=== PATIENT | female | born 1975 | race Caucasian/White ===

== ENCOUNTER → 2019-09-07 15:27 | Outpatient (CLI) | payer MEDICARE, SELFPAY ==
--- NOTE | 2019-09-07 15:38 | RAD_ITS ---
STUDY: X-RAY CHEST REASON FOR EXAM: Female, 44 years old. Cough TECHNIQUE: PA and lateral views of the chest. COMPARISON: None. FINDINGS: The lungs are clear and expanded. There is no demonstrated pleural abnormality. Normal size heart. Normal mediastinum and ludmila. Normal visualized pulmonary arteries. Normal visualized aortic arch and descending thoracic aorta. Normal visualized thoracic spine. Normal visualized ribs, clavicles, and shoulders. There is no demonstrated abnormality of the visualized soft tissue structures of the upper abdomen. RAD/Chest PA and Lateral IMPRESSION: Normal x-ray examination of the chest. Electronically Signed: Shaheen Braswell MD at 22:47 EST , Service support ,
== END ==
PROVIDERS: Family Provider Nurse Practitioner; PCP Nurse Practitioner; Referring Provider Nurse Practitioner; Visit Provider Nurse Practitioner
DX: J44.9 Chronic obstructive pulmonary disease, unspecified (principal)
CPT/HCPCS: 71046

== ENCOUNTER 2019-12-27 20:21 | Observation (INO) | payer MEDICARE, MEDICAID, SELFPAY ==
[2019-12-27] VITALS (10 sets, daily range): BP systolic 102–115; BP diastolic 67–80; PULSE 61–92; RESP 16–18; TEMP 36.3–37; O2SAT 98–100; BMI 21.5; BMI 22.4
--- NOTE | 2019-12-27 20:32 | EKG12_ITS ---
Test Reason : STROKE Blood Pressure : / mmHG Vent. Rate : 080 BPM Atrial Rate : 080 BPM P-R Int : 138 ms QRS Dur : 082 ms QT Int : 394 ms P-R-T Axes : 067 063 067 degrees QTc Int : 454 ms Normal sinus rhythm with sinus arrhythmia Normal ECG Confirmed by LAN SMITH, CONNIE ([id number]), metropolitan editor [address] ADAMS ([id number]) on 12/30/2019 11:43:38 AM Referred By: AUBREY Confirmed By:FLORENCIA MONTENEGRO MD
--- NOTE | 2019-12-27 20:32 | CT_ITS ---
We are attempting to reach an attending provider to discuss findings. An addendum with communication details will be sent when the communication is complete. STUDY: CT BRAIN WITHOUT CONTRAST REASON FOR EXAM: Female, 44 years old. Stroke RADIATION DOSAGE (If Supplied By Facility): CTDIvol = ( 44.99 ) mGy, DLP = ( 779.24 ) mGycm TECHNIQUE: Transaxial CT imaging of the brain was performed without administration of intravenous contrast material. Individualized dose optimization techniques were used for this CT. COMPARISON: No relevant priors. FINDINGS: Brain parenchyma is without focal lesions, mass effect, acute intracranial hemorrhage, extra parenchymal fluid collections, hydrocephalus or herniation. The skull is intact. CT/Brain/Head without Contrast IMPRESSION: 1. Normal CT brain. Electronically Signed: Theron Rust, at 20:47 EDT Tel , Service support ,
--- NOTE | 2019-12-27 20:33 | CT_ITS ---
STUDY: CTA OF THE BRAIN REASON FOR EXAM: Female, 44 years old. STROKE, NEURO DEFICIT, ACUTE STROKE SUSPECTED, SLURRED SPEECH TODAY RADIATION DOSAGE (If Supplied By Facility): CTDIvol = ( 22.63 ) mGy, DLP = ( 625.85 ) mGycm TECHNIQUE: CT angiography was performed with a multi-detector CT scanner. Data acquisition was obtained from the skull base through the vertex following intravenous administration of IV 100mL [id number]-[id number]. MIP images were reconstructed from the axial data set. Post-processing of the angiographic images was performed, with multiplanar reformation and 3D reconstruction. Individualized dose optimization techniques were used for this CT. COMPARISON: None. FINDINGS: Normal bilateral petrous carotid arteries. Normal right cavernous carotid artery with a normal supraclinoid bifurcation. Normal left cavernous carotid artery with a normal supraclinoid bifurcation. Normal right A1 segments of the anterior cerebral artery. Normal left A1 segments of the anterior cerebral artery. Normal intact anterior communicating artery (ACOM). Normal bilateral A2 segments of the anterior cerebral arteries. Normal right M1 and M2 segments of the middle cerebral arteries, with a normal M1 bifurcation. Normal left M1 and M2 segments of the middle cerebral arteries, with a normal M1 bifurcation. Posterior communicating arteries are not well seen. Normal bilateral vertebral arteries. Normal basilar artery with a normal basilar bifurcation. The visualized bilateral superior cerebellar (SCA) arteries are normal. Normal bilateral P1, P2 and visualized P3 segments of the posterior cerebral arteries. There is no demonstrated aneurysm of the [place]. There is no demonstrated abnormality of the visualized brain. IMPRESSION: Normal [place] without a demonstrated aneurysm or hemodynamically significant stenosis. N.B. : The above information has been verbally conveyed by Theron Rust to Josefa Romero on 12/27/2019 20:54:30 (ET). Electronically Signed: Theron Rust, at 20:54 EDT Tel , Service support , STUDY: CTA NECK WITH CONTRAST REASON FOR EXAM: Female, 44 years old. STROKE, NEURO DEFICIT, ACUTE STROKE SUSPECTED, SLURRED SPEECH TODAY RADIATION DOSAGE (If Supplied By Facility): CTDIvol = ( ) mGy, DLP = ( ) mGycm TECHNIQUE: CT angiography with multi-detector data acquisition was performed from the aortic arch to the skull base following intravenous administration of . MIP images were reconstructed from the axial data set. Post-processing of the angiographic images was performed, with multiplanar reformation and 3D reconstruction. Individualized dose optimization techniques were used for this CT. COMPARISON: None. FINDINGS: AORTIC ARCH: Normal visualized aortic arch. Normal origins of the brachiocephalic, left common carotid, and left subclavian arteries. RIGHT CAROTID ARTERIES: Normal right common carotid artery (CCA). Normal right common carotid bulb. Normal origin of the right internal carotid (ICA) artery without a hemodynamically significant stenosis. Normal visualized cervical portion of the right internal carotid artery. Normal origin of the right external carotid artery (ECA). LEFT CAROTID ARTERIES: Normal left common carotid artery (CCA). Normal left common carotid bulb. Normal origin of the left internal carotid (ICA) artery without a hemodynamically significant stenosis. Normal visualized cervical portion of the left internal carotid artery. Normal origin of the left external carotid artery (ECA). VERTEBRAL ARTERIES: Normal bilateral vertebral arteries. CT/CTA Head AND Neck W/ Contrast IMPRESSION: Normal bilateral cervical carotid and vertebral arteries. N.B. : The above information has been verbally conveyed by Theron Rust to Josefa Romero on 12/27/2019 20:54:30 (ET). Electronically Signed: Theron Rust, at 20:54 EDT Tel , Service support ,
--- NOTE | 2019-12-27 20:35 | ED.RN ---
FACE SHEET FAXED TO [facility]
--- NOTE | 2019-12-27 20:36 | ED.DCSUM_ITS ---
History of Present Illness Chief Complaint: Numb/Ting Informant: Patient Onset: Days Context: Gradual Onset Timing: Waxes and wanes Quality and Location: Right Facial Droop, Right Arm Parasthesia, Right Arm Weakness, Expressive Aphasia, - - Vision changes Narrative: Patient is a 44-year-old female with history of fibromyalgia and seizure medication presenting with strokelike symptoms. Patient states that for the past week she has had difficulty swallowing. She notes the past 2 days she has had a heaviness of her right face but then about 4 hours prior to calling EMS she started having worsening of her facial heaviness, speech difficulties, numbness from her right elbow down her arm and blurry vision from her right eye. This was 4-1/2 hours prior to my evaluation of her. Patient has a history of low blood pressure, hypoglycemia and fibromyalgia. She does not have any history of stroke. While she was having these symptoms over the past week do not think she was having a stroke because she still young. She was having some nausea prior to arrival however that resolved with fluids given by EMS. Patient's fingerstick blood glucose was normal. She denies any other complaints at this time. Past Medical History - Allergies and Home Meds Allergies/Adverse Reactions: Allergies bupropion HCl [From Wellbutrin] Allergy (Verified 12/27/19 20:31) Other divalproex sodium [From Depakote] Allergy (Verified 12/27/19 20:31) Rash doxycycline Allergy (Verified 12/27/19 20:31) Rash Gadolinium-MRI Contrast Medium [Gadolinium-Contrast Medium - MRI] Allergy (Verified 12/27/19 20:31) Hives lamotrigine [From Lamictal] Allergy (Verified 12/27/19 20:31) Rash latex Allergy (Verified 12/27/19 20:31) Hives phenytoin sodium [From Dilantin] Allergy (Verified 12/27/19 20:31) Hives phenytoin sodium extended [From Dilantin] Allergy (Verified 12/27/19 20:31) Hives erythromycin base Adverse Reaction (Verified 12/27/19 20:31) Nausea/Vom/Diarrhea quetiapine fumarate [From Seroquel] Adverse Reaction (Verified 12/27/19 20:31) Other Sulfa (Sulfonamide Antibiotics) Adverse Reaction (Verified 12/27/19 20:31) Vomiting varenicline tartrate [From Chantix] Adverse Reaction (Verified 12/27/19 20:31) Vomiting Past Medical History: - - Migraines, fibromyalgia Surgical History: noncontributory Lives: Spouse/ Significant Other Smoking Status: Former smoker Alcohol: None Drugs: None Review of Systems General: Denies: Chills, Fever, Sweats Eyes: Reports: Blurred vision - right. Denies: Visual changes - bilaterally, Diplopia ENT: Denies: Rhinorrhea, Sore throat Cardiovascular: Denies: Chest pain, Palpitations Respiratory: Denies: Dyspnea, Cough, Dyspnea on exertion Gastrointestinal: Reports: Nausea. Denies: Abdominal pain, Vomiting, Diarrhea, Melena, Hematochezia Genitourinary: Denies: Dysuria, Hematuria, Frequency Musculoskeletal: Denies: Back pain, Extremity Pain Skin: Denies: Rash, Wounds Neurological: Reports: Weakness, Parasthesia, - - speech difficulty . Denies: Headache, Numbness STROKE Vital Signs/Narrative: Vital Signs Temp Pulse Resp BP Pulse Ox 12/27/19 20:22 98.1 F 92 18 115/74 100 Inital Vital Signs reviewed: Yes - NIHSS Initial 1a Level of Consciousness: 0 1b LOC Questions (Score 2 if aphasic/stupor): 0 1c LOC Commands (Only score 1st attempt): 0 2 Best Gaze (If aphasic, use reflexive mvmts.): 0 3 Visual: 1 - Right upper visual field 4 Facial Palsy: 1 - Right facial droop 5 Motor Arm Right (UN = amputation/fusion): 3 - Some movement on the bed but no effort against gravity 5 Motor Arm Left: 0 6 Motor Leg Right: 0 6 Motor Leg Left: 0 7 Limb ataxia (Only + if out of proportion): 0 8 Sensory (Aphasia/stupor=0 or 1, coma=2): 1 - Right face and upper extremity 9 Best Language: 0 10 Dysarthria (mute, coma=2, intubated=UN): 1 11 Extinction and Inattention (only scored if +): 0 Total Score: 7 General: Well nourished, Well developed Head: Normocephalic, Atraumatic Eyes: Perrl, EOMI ENT: Moist mucous membranes, No rhinorrhea Neck: Supple, Nontender Cardiovascular: Regular rate, Regular rhythm, No murmurs Respiratory: No distress, CTA bilaterally, Chest nontender Abdomen: Soft, Nontender, Nondistended, Normal bowel sounds Back: Nontender, Normal Inspection Extremities: Nontender, No edema Skin: Normal color, No rash Neurological: Alert, Oriented x3, - - See NIH above. Patient seems to have a hard time sticking out her tongue Psychological: Normal affect Diagnostic/Tx/Re-eval Clinical Impression(s) from Imaging Studies Brain CT 12/27/19 20:32 IMPRESSION: 1. Normal CT brain. Electronically Signed: Theron Rust, at 20:47 EDT Tel , Service support , ADDENDUM: 12/27/192100 IMPRESSION: 1. Normal CT brain. N.B. : The above information has been verbally conveyed by Theron Rust to Josefa Romero MD, on 12/27/2019 20:54:38 (ET). Electronically Signed: Theron Rust at 20:47 EDT Tel , Service support , Head/Neck CTA 12/27/19 20:33 IMPRESSION: Normal bilateral cervical carotid and vertebral arteries. N.B. : The above information has been verbally conveyed by Theron Rust to Josefa Romero on 12/27/2019 20:54:30 (ET). Electronically Signed: Theron Rust at 20:54 EDT Tel , Service support , ADDENDUM: 12/27/192100 IMPRESSION: Normal bilateral cervical carotid and vertebral arteries. N.B. : The above information has been verbally conveyed by Theron Rust to Josefa Romeor on 12/27/2019 20:54:30 (ET). Electronically Signed: Theron Rust at 20:54 EDT Tel , Service support , Chest X-Ray 12/27/19 21:05 IMPRESSION: No acute thoracic pathology. Electronically Signed: Vin Sloan, at 21:35 EDT Tel , Service support , Laboratory Data 12/27/19 12/27/19 12/27/19 20:30 20:30 20:30 WBC 8.7 RBC 5.25 Hgb 16.1 H Hct 47.5 H MCV 90.5 MCH 30.7 MCHC 33.9 RDW Std Deviation 42.2 RDW Coeff of Yuly 12.7 Plt Count 408 MPV 8.4 Immature Gran % (Auto) 0.200 Neut % (Auto) 45.2 L Lymph % (Auto) 45.8 H Bergen % (Auto) 5.9 Eos % (Auto) 2.1 Baso % (Auto) 0.8 Absolute Neuts (auto) 3.9 Absolute Lymphs (auto) 3.97 Nucleated RBC % 0 PT 13.3 INR 1.0 APTT 29.5 Sodium 138 Potassium 3.6 Chloride 109 H Carbon Dioxide 26.0 Anion Gap 3 L BUN 6 L Creatinine 0.82 Estim Creat Clear Calc 83.67 Est GFR (MDRD) Af Amer 98 Est GFR (MDRD) Non-Af 81 BUN/Creatinine Ratio 7.3 L Glucose 89 Calcium 9.3 Troponin I < 0.015 Serum , Qual POC Glucose 12/27/19 12/27/19 20:30 20:45 WBC RBC Hgb Hct MCV MCH MCHC RDW Std Deviation RDW Coeff of Yuly Plt Count MPV Immature Gran % (Auto) Neut % (Auto) Lymph % (Auto) [place] % (Auto) Eos % (Auto) Baso % (Auto) Absolute Neuts (auto) Absolute Lymphs (auto) Nucleated RBC % PT INR APTT Sodium Potassium Chloride Carbon Dioxide Anion Gap BUN Creatinine Estim Creat Clear Calc Est GFR (MDRD) Af Amer Est GFR (MDRD) Non-Af BUN/Creatinine Ratio Glucose Calcium Troponin I Serum , Qual NEGATIVE POC Glucose 80 Chest X-Ray - ED: 1 View, Read by ED Physician, Read by Radiologist, No Acute Disease - Rhythm Strip Rhythm Strip: Sinus Rhythm Rate: 80 Ectopy: None - EKG Initial EKG Interpretation: Sinus Rhythm, - - Normal sinus rhythm at a rate of 80 Normal axis Normal intervals Normal ST segments Compared to prior EKG on 03/29/2014 patient has no changes - Medical Decision Making Stroke Team Activated: Yes Reviewed Inclusion/Exclusion criteria: Yes Was Patient considered for Endovascular Intervention?: No IV Alteplase (t-PA) Administered: No - Not a candidate based on timing of symptoms Patient is a 44-year-old female history of migraines and fibromyalgia presenting with strokelike symptoms. She had acute worsening of her symptoms just under 4 and half hours prior to arrival. Patient actually been having neurologic symptoms however for the past week. Because of the acute change he did call a stroke alert. After discussion with the stroke neurologist at [facility] she agrees that patient is not a TPA candidate. CTA obtained to rule out LVO. CT brain and CTA head and neck are negative for any acute intracranial or vascular process. Patient does not have any significant change of her neurologic symptoms were in the emergency room. Differential does include stroke but I also consider complex migraine or an underlying psychiatric illness. Patient be admitted for further neurologic evaluation. Patient agreeable this plan. She is complaining of nausea while the emergency room. She is given oral Zofran which does not seem to help. Patient is been complaining of discomfort of her right arm and continue nausea. She will be given Toradol and Phenergan for her symptoms and possibly to treat her if this is a complex migraine. Patient is agreeable with admission. Case discussed with hospitalist, Dr. Anderson, who evaluates patient in the ER. ED Disposition - Plan for ED Patient: Disposition: Acute Care Hospital [facility] Diagnosis: Stroke-like symptoms, Expressive aphasia, Right arm weakness, Paresthesia of right arm
[2019-12-27 20:43] LABS: Absolute Lymphocyte Count 3.97 X10^3/uL (0.83-4.51); Absolute Neutrophil Count 3.9 X10^3/uL (2.0-7.7); Basophil# 0.07 X10^3/uL; Basophil% 0.8 % (0-1); Eosinophil# 0.18 X10^3/uL; Eosinophils% 2.1 % (0-5); Hematocrit 47.5 % (37-47); Hemoglobin 16.1 g/dL (12.0-15.0); Lymphocyte # 3.97 X10^3/ul (4.0); Lymphocyte % 45.8 % (19-41); Mean Corp Hgb Conc 33.9 g/dL (32-36); Mean Corpuscular Hgb 30.7 pg (27.0-32.0); Mean Corpuscular Volume 90.5 fL (81-99); Mean Platelet Vol. 8.4 fl (6.2-12.0); Monocyte# 0.51 X10^3/uL; Monocyte% 5.9 % (0-10); NRBC Flagged by Analyzer 0 % (0-5); Neutrophil # 3.91 X10^3/uL (2.7-7.7); Neutrophil % 45.2 % (47-70); Platelet Count 408 K/mm3 (150-450); RBC Distribution Width CV 12.7 % (11.6-14.6); RBC Distribution Width SD 42.2 fl (35.1-43.9); Red Blood Count 5.25 M/mm3 (4.2-5.4); White Blood Count 8.7 K/mm3 (4.4-11.0)
[2019-12-27] MEDS: 0.9% Normal Saline 1,000 ML 999 ML IV (20:49)
[2019-12-27 20:50] LABS: Bedside Glucose 80 mg/dL (70-110)
[2019-12-27 20:52] LABS: Prothrombin Time (Protime)PT. 13.3 SECONDS (11.7-14.9)
[2019-12-27 20:53] LABS: Partial Thromboplast Time 29.5 Seconds (24.1-36.2)
[2019-12-27 20:56] LABS: Anion Gap 3 (5-15); BUN 6 mg/dL (7-18); BUN/Creat Ratio 7.3 RATIO (10-20); Calcium,Total 9.3 mg/dL (8.5-10.1); Chloride 109 mmol/L (98-107); Creatinine, Serum 0.82 mg/dL (0.55-1.02); EST Glomerular Filtration Rate 81 mL/min (>60); Est Glom Filt Rate - Afr Amer 98 mL/min (>60); Estimated Creatinine Clearance 83.67 ml/min; Glucose 89 mg/dL (74-106); Potassium 3.6 mmol/L (3.5-5.1); Sodium Level 138 mmol/L (136-145)
--- NOTE | 2019-12-27 20:57 | CM.ED ---
Social Work Responding to stroke alert. No family present. Patient requesting for this social work job titles to call patient boyfriend, Hermilo ([phone]). Telephone call to Hermilo, no answer and voicemail box is full. Patient now requesting for this social work job titles to call Hermilo's mom ([phone]). Patient unable to verbalize a name for Hermilo's mom. Telephone call to Hermilo's mom, Oumoura Bacon. Oumou answering phone and confirming to know patient. Oumou stating to update Hermilo that patient is in the ED. Patient also clarifying that Hermilo and Oumou are the only two people to be updated on patient medication conditions. Patient stating to not talk with adopted family. Unable to gather more information at this time due to patient current medical status. Noman STEWART, CHELY
[2019-12-27] MEDS: Ondansetron 4 MG/2 ML Vial IV (21:00)
--- NOTE | 2019-12-27 21:05 | RAD_ITS ---
STUDY: X-RAY CHEST REASON FOR EXAM: Female, 44 years old. Cough TECHNIQUE: Frontal view of the chest COMPARISON: 09/07/2019 FINDINGS: The lungs are clear. There are no pleural effusions. There is no pneumothorax. The heart is normal in size. The visualized osseous structures are within normal limits. RAD/Chest 1 View IMPRESSION: No acute thoracic pathology. Electronically Signed: Vin Sloan, at 21:35 EDT Tel , Service support ,
[2019-12-27 21:28] LABS: Internal QC Validated? YES +Cl - CLEAR BKGD; Pregnancy, Serum, hCG Quali. NEGATIVE Negative
--- NOTE | 2019-12-27 21:55 | HP.PCM_ITS ---
Problem List (1) Stroke-like symptoms Status: Acute (2) History of pseudoseizure Status: Chronic (3) Anxiety and depression Status: Chronic (4) History of migraine Status: Chronic (5) Tobacco use Status: Chronic (6) COPD (chronic obstructive pulmonary disease) Status: Chronic Qualifiers: COPD type: unspecified COPD Qualified Code(s): J44.9 - Chronic obstructive pulmonary disease, unspecified History of Present Illness Date of Admission: 12/27/19 Chief Complaint: Paresthesias, vision changes, extremity weakness The patient is a 44 y/o F w/ PMHx: Chronic COPD, Former Tobacco use, Depression and Anxiety with prior history of self-inflicted lacerations, Fibromyalgia, ? Seizure disorder noted to have previously been following w/ Dr. Marshall, Chronic Migraines with prior history of complex migraine noting dysarthria, R sided paresthesias per records review who presents to the [facility] ED on 12/27/19 with history of 1 week history of ongoing dysphasia, 2-day history of heaviness with a sensation primarily in the right side of her face which worsened approximately 4 hours prior to calling EMS with difficulty speaking as well as right upper extremity paresthesias and blurry vision in the right eye prompting eventual ED presentation. She notes during this time she is also had light and sound sensitivity and describes the heaviness on the right side of her face as a pressure-like sensation. Work-up in the ED included T 98.1, heart rate 92, BP 115/74, respiratory rate 18, 100% on room air, negative testing, CBC with WBC 8.7, hemoglobin 16.1, platelet 408 without market shift, unremarkable coags, CMP with chloride 109 otherwise not marked appearing, troponin less than 0.015, CT head with no acute intracranial findings, CTA head and neck with no acute findings with normal bilateral cervical carotid and vertebral arteries. In the ED patient administered normal saline and Zofran. NIH stroke scale of 7 upon presentation and repeat assessment with right upper field deficits, right facial droop, right upper extremity with some movement on the bed but no effort against gravity, right face and upper extremity sensory alterations as well as significant dysarthria. Past Medical History Past Medical History (Chronic Problems): Chronic Problems History of pseudoseizure (Chronic) Anxiety and depression (Chronic) History of migraine (Chronic) Tobacco use (Chronic) COPD (chronic obstructive pulmonary disease) (Chronic) Allergies bupropion HCl [From Wellbutrin] Allergy (Verified 12/27/19 20:31) Other divalproex sodium [From Depakote] Allergy (Verified 12/27/19 20:31) Rash doxycycline Allergy (Verified 12/27/19 20:31) Rash Gadolinium-MRI Contrast Medium [Gadolinium-Contrast Medium - MRI] Allergy (Verified 12/27/19 20:31) Hives lamotrigine [From Lamictal] Allergy (Verified 12/27/19 20:31) Rash latex Allergy (Verified 12/27/19 20:31) Hives phenytoin sodium [From Dilantin] Allergy (Verified 12/27/19 20:31) Hives phenytoin sodium extended [From Dilantin] Allergy (Verified 12/27/19 20:31) Hives erythromycin base Adverse Reaction (Verified 12/27/19 20:31) Nausea/Vom/Diarrhea quetiapine fumarate [From Seroquel] Adverse Reaction (Verified 12/27/19 20:31) Other Sulfa (Sulfonamide Antibiotics) Adverse Reaction (Verified 12/27/19 20:31) Vomiting varenicline tartrate [From Chantix] Adverse Reaction (Verified 12/27/19 20:31) Vomiting Home Medications: Ambulatory Orders Medication Instructions Recorded Albuterol Inhaler [Ventolin Hfa 1 - 2 puff INHALATION Q4H PRN PRN 16 (SP)] Cholecalciferol (Vitamin D3) 10,000 unit PO DAILY 12/27/19 [Vitamin D3] Gabapentin [Neurontin] 200 mg PO BIDCM 12/27/19 Sumatriptan Succinate [Imitrex] 100 mg PO .X1 PRN 12/27/19 Surgical History: - - D&C x2, cholecystectomy, partial hysterectomy, x4. 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 Tobacco Use: Cigarettes Alcohol: None Drugs: None - *Family History Maternal History Items: Diabetes, High Cholesterol, Heart Disease, Hypertension Paternal History Items: Diabetes, High Cholesterol, Heart Disease, Hypertension Review of Systems Constitutional: Reports: Anorexia, Malaise, Weakness, Fatigue. Denies: Chills, Fever, Weight Change HEENT: Reports: Head Aches, Visual Changes. Denies: Sinus Congestion, Sinus Drainage Cardiovascular: Denies: Chest Pain, Palpitations Respiratory: Denies: Cough, Shortness of breath at rest, Sputum production Gastrointestinal: Reports: Nausea. Denies: Abdominal Pain, Vomiting Genitourinary: Denies: Dysuria Musculoskeletal: Reports: Back Pain, Joint Pain. Denies: Joint Tenderness Skin: Denies: Rash, Wounds Neurological: Reports: Blurred vision, Slurred speech, Confusion, Difficulty swallowing, Focal weakness, Numbness, Tingling Psychiatric: Reports: Anxiety, Depression. Denies: Homicidal Ideations, Suicidal Ideations Hematologic/ Lymphatic: Denies: Easy Bruising, Easy Bleeding VTE Information - Inpt Only VTE Present on Admission: No VTE Mechan Device Prophylaxis: SCD's VTE Pharm Prophylaxis ordered?: Yes Patient Problems: Active and Suspected Problems Stroke-like symptoms (Acute) Expressive aphasia (Acute) Right arm weakness (Acute) Paresthesia of right arm (Acute) Subjective: Patient seated upright in the ED bed, halting speech ongoing, no evidence of facial droop. Objective: Physical Examination: General: awake, alert, oriented x 3 ongoing halting speech, remains cooperative, seated upright in the ED bed in no apparent distress. Skin: normal color, turgor, no icterus, cyanosis. HEENT: AT/NC, EOMI, PERRLA, MMM, no carotid bruits or JVD noted. Lungs: CTA bilaterally, moderate effort, mild decrease BL bases, no rales, ronchi or wheezing. Heart: Regular rate and rhythm; no gallop, rub audible. Abdomen: soft, NTTP, ND, normal BS, no HSM. Extremities: no cyanosis, clubbing, or edema. Neurological: patient awake, alert, oriented as noted; cognitive function appears intact however patient notes decreased from her baseline intact; pupils equally reactive to light and accomodation; cranial nerves II-XII grossly appear normal, moving all 4 extremities except significant drift to right upper extremity as well as left lower extremity, subjective paresthesias, difficulty performing [id number] bilateral upper extremities and [id number] bilateral lower extremities, negative Babinski, strength difficult assessment as examination varied, no obvious facial droop, no obvious visual field defects. Psychiatric: affect appears fatigued otherwise normal, no acute evidence of depressive or anxiety feelings. - Physical Exam Vitals/I&O's: Vital Signs Temp Pulse Resp BP Pulse Ox 98.1 F 86 17 109/69 100 12/27/19 20:41 12/27/19 21:02 12/27/19 21:02 12/27/19 21:02 12/27/19 21:02 Oxygen Flow Rate (L/min) 2 Oxygen Delivery Method Nasal Cannula Weight: 133 lb 9.602 oz Body Mass Index (BMI) 21.5 Finger Stick Blood Glucose 107 Laboratory Results 12/27/19 20:30: WBC 8.7, RBC 5.25, Hgb 16.1 H, Hct 47.5 H, MCV 90.5, MCH 30.7, MCHC 33.9, RDW Std Deviation 42.2, RDW Coeff of Yuly 12.7, Plt Count 408, MPV 8.4, Immature Gran % (Auto) 0.200, Neut % (Auto) 45.2 L, Lymph % (Auto) 45.8 H, [place] % (Auto) 5.9, Eos % (Auto) 2.1, Baso % (Auto) 0.8, Absolute Neuts (auto) 3.9, Absolute Lymphs (auto) 3.97, Nucleated RBC % 0 12/27/19 20:30: PT 13.3, INR 1.0, APTT 29.5 12/27/19 20:30: Sodium 138, Potassium 3.6, Chloride 109 H, Carbon Dioxide 26.0, Anion Gap 3 L, BUN 6 L, Creatinine 0.82, Estim Creat Clear Calc 83.67, Est GFR (MDRD) Af Amer 98, Est GFR (MDRD) Non-Af 81, BUN/Creatinine Ratio 7.3 L, Glucose 89, Calcium 9.3, Troponin I < 0.015 12/27/19 20:30: Serum , Qual NEGATIVE 12/27/19 20:45: POC Glucose 80 Assessment/Plan All Active Problems Stroke-like symptoms (Acute) Expressive aphasia (Acute) Right arm weakness (Acute) Paresthesia of right arm (Acute) The patient is a 44 y/o F w/ PMHx: Chronic COPD, Former Tobacco use, Depression and Anxiety with prior history of self-inflicted lacerations, Fibromyalgia, ? Pseudoseizure disorder noted to have previously been following w/ Dr. Marshall, Chronic Migraines with prior history of complex migraine noting dysarthria, R sided paresthesias per records review who presents to the [facility] ED on 12/27/19 with history of 1 week history of ongoing dysphasia, 2-day history right facial heaviness with onset difficulty speaking and extremity weakness x4 hours. 1. Dysarthria, RUE and LLE Weakness, Paresthesias concerning for CVA versus Complex Migraine with prior history versus Conversion disorder: Will admit to PCU, will obtain MRI Brain, ECHO, PT/OT/Speech/Nutrition evaluation per protocol. Will allow permissive HTN pending MRI brain, maintain on plavix given patient noted possible ASA side effects with dyspnea occasionally, add high dose statin w/ AM FLP, fall precautions. TSH, Mag, FLP, HgbA1c pending. If unremarkable MRI brain then would consider treatment complex migraine and given allergies noted, would consider initiating dihydroergotamine with metoclopramide, IV Decadron 4mg Q6 hours, IV Toradol 30mg q8 hours scheduled, increase home gabapentin regimen to 300mg TID with meals. 2. Pseudoseizure disorder: We will continue patient home Neurontin regimen. Noted previously following with Dr. Park, several listed allergic reactions to AED medications. 3. Chronic COPD: ATC duonebs, PRN albuterol, HOB, IS parameters. 4. Depression and anxiety: Several previous ED visit histories of anxiety and depression as well as self-inflicted harm, not on regimen, encourage follow-up. 5. Tobacco Abuse: Encouraged cessation, inpatient consultation per RT, NR if desired. 6. DVT prophylaxis: SCDs, Lovenox. OBSV E&M: 15260 Initial observation care L3
[2019-12-27] MEDS: proMETHazine 25 MG/ML Syringe 12.5 MG IV (22:23)
[2019-12-27] MEDS: Ketorolac 15 MG/ML Vial IV (22:24)
[2019-12-27 23:39] LABS: Magnesium 1.9 mg/dL (1.6-2.6); Thyroid Stim Hormone (TSH) 5.82 uIU/mL (0.358-3.74)
[2019-12-27] MEDS: 0.9% Normal Saline 1,000 ML 125 ML IV (23:54)
[2019-12-27] MEDS: 0.9% Saline Lock 10 ML Syringe IV (23:55)
[2019-12-28] VITALS (8 sets, daily range): BP systolic 85–91; BP diastolic 38–54; PULSE 51–71; RESP 16–18; TEMP 36.5–36.8; O2SAT 97–100
[2019-12-28] MEDS: 0.9% Saline Lock 10 ML Syringe IV ×2 (03:18→09:04)
[2019-12-28] MEDS: proCHLORPERazine 10 MG/2 ML Vial 5 MG IV (03:18)
[2019-12-28] MEDS: Ketorolac 15 MG/ML Vial IV (03:46)
[2019-12-28 06:53] LABS: Absolute Lymphocyte Count 3.59 X10^3/uL (0.83-4.51); Absolute Neutrophil Count 2.4 X10^3/uL (2.0-7.7); Basophil# 0.07 X10^3/uL; Eosinophil# 0.29 X10^3/uL; Eosinophils% 4.2 % (0-5); Hematocrit 40.7 % (37-47); Hemoglobin 13.6 g/dL (12.0-15.0); Lymphocyte # 3.59 X10^3/ul (4.0); Lymphocyte % 52.5 % (19-41); Mean Corp Hgb Conc 33.4 g/dL (32-36); Mean Corpuscular Hgb 30.8 pg (27.0-32.0); Mean Corpuscular Volume 92.1 fL (81-99); Mean Platelet Vol. 8.6 fl (6.2-12.0); Monocyte% 7.3 % (0-10); NRBC Flagged by Analyzer 0 % (0-5); Neutrophil # 2.38 X10^3/uL (2.7-7.7); Neutrophil % 34.9 % (47-70); Platelet Count 335 K/mm3 (150-450); RBC Distribution Width CV 12.8 % (11.6-14.6); RBC Distribution Width SD 43.6 fl (35.1-43.9); Red Blood Count 4.42 M/mm3 (4.2-5.4); White Blood Count 6.8 K/mm3 (4.4-11.0)
[2019-12-28 07:18] LABS: Anion Gap 4 (5-15); BUN 7 mg/dL (7-18); BUN/Creat Ratio 11.9 RATIO (10-20); Calcium,Total 7.8 mg/dL (8.5-10.1); Chloride 114 mmol/L (98-107); Cholesterol 160 mg/dL (200); Creatinine, Serum 0.59 mg/dL (0.55-1.02); EST Glomerular Filtration Rate 119 mL/min (>60); Est Glom Filt Rate - Afr Amer 144 mL/min (>60); Estimated Creatinine Clearance 107.26 ml/min; Glucose 81 mg/dL (74-106); High Density Lipoprotein 33 mg/dL; Potassium 3.6 mmol/L (3.5-5.1); Sodium Level 141 mmol/L (136-145); Triglycerides 141 mg/dL; Very Low Density Lipoprotein 28 mg/dL (5-40)
[2019-12-28] MEDS: 0.9% Normal Saline 1,000 ML 125 ML IV (07:30)
[2019-12-28 07:36] LABS: T4 Free Direct 1.04 ng/dL (0.76-1.46)
--- NOTE | 2019-12-28 08:00 | MRI_ITS ---
STUDY: MRI BRAIN WITHOUT CONTRAST REASON FOR EXAM: Female, 44 years old. Dysphasia x 1 week, RIGHT eye blurred vision, rt facial numbness TECHNIQUE: Standardized multiplanar fat and water weighted pulse sequences were obtained. COMPARISON: None. FINDINGS: Normal size of the ventricles and extra-axial spaces for the patient''s age. Normal white matter tracts of the supratentorial brain. There is no evidence for recent intracranial ischemia or other cause of cytotoxic edema on diffusion weighted imaging (DWI). Normal T2* images of the brain without demonstrated susceptibility artifact. There is no demonstrated hemosiderin stain. Normal bilateral basal ganglia. Normal thalami. There is no extra-axial fluid accumulation. Normal flow voids within the major intracranial circulation suggesting patency by spin echo criteria. Normal sella turcica, pituitary gland, infundibular stalk, optic chiasm and hypothalamus. Normal tectal plate and pineal gland. Normal midbrain, kinsey and medulla. Normal cerebellum. Normal basal cisterns. There is mild chronic otomastoiditis of the left temporal bone. Normal bilateral internal auditory canals. No demonstrated orbital abnormality, within the constraints of a routine brain study. There is mucoperiosteal inflammatory disease of the paranasal sinuses consistent with mild chronic sinusitis. Normal calvarium and skull base. Normal visualized soft tissue structures. Normal visualized upper cervical spine. MRI/Brain without Contrast IMPRESSION: Normal unenhanced MRI of the brain. Electronically Signed: Tej Day MD at 9:56 EDT Tel , Service support ,
[2019-12-28] MEDS: LORazepam 2 MG/ML Syringe 0.5 MG IV (09:04)
--- NOTE | 2019-12-28 09:04 | MRI_ITS ---
STUDY: MRI CERVICAL SPINE WITHOUT CONTRAST REASON FOR EXAM: Female, 44 years old. Speech changes x 2 weeks, radiculopathy, TECHNIQUE: Standardized fat and water weighted pulse sequences were obtained in the sagittal and axial planes. COMPARISON: X-ray 08/29/2014 FINDINGS: Normal foramen magnum and brainstem-cervical cord junction. Normal craniovertebral junction. Normal anterior atlantoaxial articulation. Normal odontoid process. Normal cervical lordosis. Normal vertebral bodies and posterior osseous elements. C2-3: Normal endplates. Normal disc height, signal and morphology. Normal central canal and intervertebral neural foramina. C3-4: Normal endplates. Normal disc height, signal and morphology. Normal central canal and intervertebral neural foramina. C4-5: Normal endplates. Normal disc height, signal and morphology. Normal central canal and intervertebral neural foramina. C5-6: Disc desiccation with a mild broad disc osteophyte complex which produces minimal spinal stenosis but no neural foraminal stenosis. C6-7: Normal endplates. Normal disc height, signal and morphology. Normal central canal and intervertebral neural foramina. C7-T1: Normal endplates. Normal disc height, signal and morphology. Normal central canal and intervertebral neural foramina. Normal cervical cord. Normal visualized soft tissue structures. MRI/Spine Cervical (Routine) IMPRESSION: Mild focal degenerative disc disease at C5/C6 with minimal spinal stenosis. Electronically Signed: Tej Day MD at 11:55 EDT Tel , Service support ,
--- NOTE | 2019-12-28 10:10 | NURSING ---
[facility] late due to testing.
--- NOTE | 2019-12-28 10:23 | NURSING ---
Pt returned from MRI. IV bolus continued.
[2019-12-28] MEDS: Gabapentin 100 MG Capsule 200 MG PO (10:55)
[2019-12-28] MEDS: Clopidogrel Bisulfate 75 MG Tablet PO (10:56)
[2019-12-28] MEDS: Famotidine 20 MG Tablet PO (10:56)
--- NOTE | 2019-12-28 11:11 | DCINST_ITS ---
- Discharge Diagnoses Current Active Problems: Current Active and Chronic Problems Stroke-like symptoms (Acute) Expressive aphasia (Acute) Right arm weakness (Acute) Paresthesia of right arm (Acute) History of pseudoseizure (Chronic) Anxiety and depression (Chronic) History of migraine (Chronic) Tobacco use (Chronic) COPD (chronic obstructive pulmonary disease) (Chronic) You will use the following diet at home:: No restrictions Your food should be the consistency of: Regular Your liquids should be the consistency of: Regular/Thin Discharge Activity: Return to Normal Activity Allergies/Adverse Reactions: Allergies bupropion HCl [From Wellbutrin] Allergy (Verified 12/27/19 20:31) Other divalproex sodium [From Depakote] Allergy (Verified 12/27/19 20:31) Rash doxycycline Allergy (Verified 12/27/19 20:31) Rash Gadolinium-MRI Contrast Medium [Gadolinium-Contrast Medium - MRI] Allergy (Verified 12/27/19 20:31) Hives lamotrigine [From Lamictal] Allergy (Verified 12/27/19 20:31) Rash latex Allergy (Verified 12/27/19 20:31) Hives phenytoin sodium [From Dilantin] Allergy (Verified 12/27/19 20:31) Hives phenytoin sodium extended [From Dilantin] Allergy (Verified 12/27/19 20:31) Hives erythromycin base Adverse Reaction (Verified 12/27/19 20:31) Nausea/Vom/Diarrhea quetiapine fumarate [From Seroquel] Adverse Reaction (Verified 12/27/19 20:31) Other Sulfa (Sulfonamide Antibiotics) Adverse Reaction (Verified 12/27/19 20:31) Vomiting varenicline tartrate [From Chantix] Adverse Reaction (Verified 12/27/19 20:31) Vomiting Medications to take at Discharge Albuterol Inhaler [Ventolin Hfa] 1 - 2 puff INHALATION Q4H PRN PRN 12/05/15 Cholecalciferol (Vitamin D3) [Vitamin D3] 10,000 unit PO DAILY 12/27/19 Gabapentin [Neurontin] 200 mg PO BIDCM 12/27/19 Meloxicam [Mobic] 15 mg PO QHS 12/27/19 Multivitamin [Daily Multiple Vitamin] 1 ea PO DAILY 12/27/19 Sumatriptan Succinate [Imitrex] 100 mg PO DAILY PRN PRN 12/27/19 Vitamin B Complex [B Complex] 1 ea PO DAILY 12/27/19 Acetaminophen [Tylenol Tablet] 650 mg PO Q6H PRN PRN tab 12/28/19 Primary Care Physician: Iva Gamble NP-C [Primary Care Provider] - Please follow up with your Primary Care Physician in: 2 weeks Test Results: Test results from this visit will be discussed in further detail at your follow- up appointment, if applicable. Please Follow Up With: Kartik Marshall MD When: 1 week Proposed Discharge Date: 12/28/19
--- NOTE | 2019-12-28 11:30 | NURSING ---
pt refusing to wear heart monitor. states Since I am going home I do not have to wear that.
--- NOTE | 2019-12-28 11:32 | PHA.DC.MR ---
Pharmacy Service has performed discharge medication reconciliation for this patient. The patient's discharge medication list was reviewed for discrepancies and discrepancies were resolved. Home Medications Albuterol Inhaler [Ventolin Hfa] 1 - 2 puff INHALATION Q4H PRN PRN 12/05/15 Cholecalciferol (Vitamin D3) [Vitamin D3] 10,000 unit PO DAILY 12/27/19 Gabapentin [Neurontin] 200 mg PO BIDCM 12/27/19 Meloxicam [Mobic] 15 mg PO QHS 12/27/19 Multivitamin [Daily Multiple Vitamin] 1 ea PO DAILY 12/27/19 Sumatriptan Succinate [Imitrex] 100 mg PO DAILY PRN PRN 12/27/19 Vitamin B Complex [B Complex] 1 ea PO DAILY 12/27/19 Acetaminophen [Tylenol Tablet] 650 mg PO Q6H PRN PRN tab 12/28/19
--- NOTE | 2019-12-28 12:59 | PCM.DC.SUM ---
<Shawn Neri - Last Filed: 12/28/19 12:59> Discharge Date and Diagnosis Date of Admission: 12/27/19 Date of Discharge: 12/28/19 - Primary Discharge Diagnosis Active and Suspected Problems Complex migraine Stroke ruled out Degenerative disc disease, mild History of pseudoseizures Anxiety, depression, PTSD Tobacco abuse History of COPD, no acute exacerbation - Secondary Discharge Diagnosis Chronic Problems History of pseudoseizure (Chronic) Anxiety and depression (Chronic) History of migraine (Chronic) Tobacco use (Chronic) COPD (chronic obstructive pulmonary disease) (Chronic) Hospital Course and Treatment Imaging Results: IMAGING: CT/Brain/Head without Contrast IMPRESSION: 1. Normal CT brain. CTA HEAD/NECK CT/CTA Head AND Neck W/ Contrast IMPRESSION: Normal bilateral cervical carotid and vertebral arteries. IMPRESSION: Normal [place] of [place] without a demonstrated aneurysm or hemodynamically significant stenosis. N.B. : The above information has been verbally conveyed by Theron Rust to Josefa Romero on 12/27/2019 20:54:30 (ET). RAD/Chest 1 View IMPRESSION: No acute thoracic pathology. MRI/Brain without Contrast IMPRESSION: Normal unenhanced MRI of the brain. MRI/Spine Cervical (Routine) IMPRESSION: Mild focal degenerative disc disease at C5/C6 with minimal spinal stenosis. Operations: None Procedures: None Summary of Care Provided: Hospital course: The patient is a 44 year old F with past medical history of pseudoseizures, chronic migraines, nicotine abuse, COPD, anxiety, depression, PTSD, who presented to the emergency room with complaints of right facial numbness, right facial pressure, right shoulder and right arm pain, right arm numbness and weakness. In the ER she had a CT of the brain, CTA of the head and neck which were negative. She was admitted to the PCU with concern for stroke versus migraine. She underwent an MRI of the brain which was negative. She underwent an MRI of the C-spine which showed mild degenerative changes. Patient had very inconsistent symptoms, with her at 1 point indicating she could not lift her arm at all, however was later witnessed lifting her arm without any issues. At one point she stated she could not breathe even though she had no hypoxia and no respiratory distress. Her lungs were clear. She reported her nose was blocked, this was examined and it was patent in bilateral nares. This was concerning for fictitious behavior. We also assessed HCG (neg) TSH which was slightly elevated and Ft4 which was normal. Trop was negative, A1C was 5.0. She had very traumatic response to physical exam, for example very light touch to her sinuses yielded severe pain and withdrawing from stimulus. The patient was felt to have had a migraine with stroke ruled out. She may continue to use her home Mobic, sumatriptan, and add Tylenol. She has a neurologist, Dr. Park. She will need to follow-up with him in 1 week. She will need to follow-up with PCP in 1 to 2 weeks. She was discharged home in stable condition. This patient was seen by Shawn Neri PA-C under the supervision of Doctor Sandra. [] - Physical Exam Vitals/I&O's: Vital Signs Temp Pulse Resp BP Pulse Ox 97.9 F 71 16 91/51 L 100 12/28/19 12:07 12/28/19 12:07 12/28/19 12:07 12/28/19 12:07 12/28/19 12:07 Oxygen Flow Rate (L/min) 2 Oxygen Delivery Method Room Air Weight: 130 lb 11.746 oz Body Mass Index (BMI) 22.4 Finger Stick Blood Glucose 107 Intake and Output for Last 24 Hours 12/26/19 12/27/19 12/28/19 23:59 23:59 23:59 Intake Total 1000 / 1000 2059.84 / 2059.84 Balance 1000 / 1000 2059.84 / 2059.84 General: Alert, Oriented x3, Cooperative HEENT: Atraumatic, PERRLA, EOMI, Normocephalic Neck: Supple, No JVD, Negative Carotid Bruits Lungs: Clear to auscultation, Normal air movement Cardiovascular: Regular rate, No murmurs Abdomen: Bowel Sounds Present, Soft, Non Tender Extremities: No edema, Capillary Refill Less than 3 Seconds Skin: No rashes, No breakdown Musculoskeletal: No Tenderness to Palpation of Joints or Extremities Neurological: Cranial nerves II-XII grossly intact Psych/Mental Status: Normal Affect, Appropriate, Alert and oriented to time, place, person, mood and affect Laboratory Results 12/27/19 20:30: WBC 8.7, RBC 5.25, Hgb 16.1 H, Hct 47.5 H, MCV 90.5, MCH 30.7, MCHC 33.9, RDW Std Deviation 42.2, RDW Coeff of Yuly 12.7, Plt Count 408, MPV 8.4, Immature Gran % (Auto) 0.200, Neut % (Auto) 45.2 L, Lymph % (Auto) 45.8 H, [place] % (Auto) 5.9, Eos % (Auto) 2.1, Baso % (Auto) 0.8, Absolute Neuts (auto) 3.9, Absolute Lymphs (auto) 3.97, Nucleated RBC % 0 12/27/19 20:30: PT 13.3, INR 1.0, APTT 29.5 12/27/19 20:30: Sodium 138, Potassium 3.6, Chloride 109 H, Carbon Dioxide 26.0, Anion Gap 3 L, BUN 6 L, Creatinine 0.82, Estim Creat Clear Calc 83.67, Est GFR (MDRD) Af Amer 98, Est GFR (MDRD) Non-Af 81, BUN/Creatinine Ratio 7.3 L, Glucose 89, Calcium 9.3, Troponin I < 0.015 12/27/19 20:30: Serum , Qual NEGATIVE 12/27/19 20:30: Magnesium 1.9, TSH 5.82 H 12/27/19 20:30: Hemoglobin A1c 5.0 12/27/19 20:45: POC Glucose 80 12/28/19 06:20: WBC 6.8, RBC 4.42, Hgb 13.6, Hct 40.7, MCV 92.1, MCH 30.8, MCHC 33.4, RDW Std Deviation 43.6, RDW Coeff of Yuly 12.8, Plt Count 335, MPV 8.6, Immature Gran % (Auto) 0.100, Neut % (Auto) 34.9 L, Lymph % (Auto) 52.5 H, [place] % (Auto) 7.3, Eos % (Auto) 4.2, Baso % (Auto) 1.0, Absolute Neuts (auto) 2.4, Absolute Lymphs (auto) 3.59, Nucleated RBC % 0 12/28/19 06:20: Sodium 141, Potassium 3.6, Chloride 114 H, Carbon Dioxide 23.0, Anion Gap 4 L, BUN 7, Creatinine 0.59, Estim Creat Clear Calc 107.26, Est GFR (MDRD) Af Amer 144, Est GFR (MDRD) Non-Af 119, BUN/Creatinine Ratio 11.9, Glucose 81, Calcium 7.8 L, Triglycerides 141, Cholesterol 160, LDL Cholesterol 99, VLDL Cholesterol 28, HDL Cholesterol 33 L 12/28/19 06:20: Free T4 1.04 Current Medications Acetaminophen (Tylenol) 650 mg PO Q6H PRN PRN PRN Reason: Pain Score 1-10/Temp > 100.7 F Acetaminophen (Tylenol) 650 mg RECTAL Q4H PRN PRN PRN Reason: Pain Score 1-10/Temp > 100.7 F Al Hydroxide/Mg Hydroxide (Mylanta Ii) 30 ml PO Q6H PRN PRN PRN Reason: Gastric Burning Albuterol Sulfate (Ventolin Aerosols) 2.5 mg INHALATION Q2H PRN PRN PRN Reason: dyspnea, wheezing Albuterol/Ipratropium (Duoneb) 3 ml INHALATION Q6HWA.RT [facility] Last Admin: 12/28/19 07:23 Dose: Not Given Documented by: Atorvastatin Calcium (Lipitor) 80 mg PO QHS [facility] Clopidogrel Bisulfate (Plavix) 75 mg PO DAILY [facility] Last Admin: 12/28/19 10:56 Dose: 75 mg Documented by: Enoxaparin Sodium (Lovenox) 40 mg SC DAILY [facility] Last Admin: 12/28/19 10:55 Dose: Not Given Documented by: Famotidine (Pepcid) 20 mg PO BID [facility] Last Admin: 12/28/19 10:56 Dose: 20 mg Documented by: [facility] Last Admin: 12/28/19 10:55 Dose: 200 mg Documented by: Glucagon () 1 mg IM .X1 PRN PRN Reason: Hypoglycemia Hydralazine HCl (Apresoline Iv) 5 mg IV Q30M PRN PRN Reason: to maintain BP goals Sodium Chloride () 1,000 mls @ 125 mls/hr IV .Q8H [facility] Last Infusion: 12/28/19 12:48 Dose: Infused Documented by: Dextrose (Dextrose 10%-Water) 250 mls @ 999 mls/hr IV .Q16M PRN; Protocol PRN Reason: HYPOGLYCEMIA Labetalol HCl (Trandate) 10 - 20 mg IV Q10M PRN PRN PRN Reason: to maintain BP goals Magnesium Hydroxide (Milk Of Magnesia) 30 ml PO DAILY PRN PRN PRN Reason: Constipation Nicotine (Nicoderm Cq (Pbkc)) 14 mg TRANSDERM. DAILY [facility] Last Admin: 12/28/19 10:56 Dose: 14 mg Documented by: Ondansetron HCl (Zofran) 4 mg IV Q8H PRN PRN PRN Reason: NAUSEA/VOMITING Prochlorperazine Edisylate (Compazine Iv) 5 mg IV Q4H PRN PRN PRN Reason: Breakthrough Nausea/Vomiting Last Admin: 12/28/19 03:18 Dose: 5 mg Documented by: Psyllium Hydrophilic Mucilloid (Metamucil) 1 packet PO DAILY PRN PRN PRN Reason: Constipation Senna/Docusate Sodium (Senokot-S, Yaneth-Colace) 2 tablet PO BID PRN PRN PRN Reason: Constipation Sodium Chloride () 10 - 40 ml IV UD PRN PRN Reason: SALINE FLUSH Last Admin: 12/28/19 09:04 Dose: 10 ml Documented by: Discharge Diet: No Restrictions Discharge Activity: Return to Normal Activity Home Medications: Medications to take at Discharge Albuterol Inhaler [Ventolin Hfa] 1 - 2 puff INHALATION Q4H PRN PRN 12/05/15 Cholecalciferol (Vitamin D3) [Vitamin D3] 10,000 unit PO DAILY 12/27/19 Gabapentin [Neurontin] 200 mg PO BIDCM 12/27/19 Meloxicam [Mobic] 15 mg PO QHS 12/27/19 Multivitamin [Daily Multiple Vitamin] 1 ea PO DAILY 12/27/19 Sumatriptan Succinate [Imitrex] 100 mg PO DAILY PRN PRN 12/27/19 Vitamin B Complex [B Complex] 1 ea PO DAILY 12/27/19 Acetaminophen [Tylenol Tablet] 650 mg PO Q6H PRN PRN tab 12/28/19 Primary Care Physician: Iva Gamble NP-C [Primary Care Provider] - Please follow up with your Primary Care Physician in: 2 weeks Please Follow Up With: Kartik Marshall MD When: 1 week Disposition: Home Minutes spent on discharge:: 35 Patient Condition:: Stable Medical Necessity - Tobacco Use Smoking Status: Current every day smoker Tobacco Use: Cigarettes Meaningful Use Info Meaningful Use Diagnoses (Choose all that apply): None applicable <Robinson Flores - Last Filed: 12/28/19 15:40> Discharge Date and Diagnosis - Secondary Discharge Diagnosis Chronic Problems History of pseudoseizure (Chronic) Anxiety and depression (Chronic) History of migraine (Chronic) Tobacco use (Chronic) COPD (chronic obstructive pulmonary disease) (Chronic) Hospital Course and Treatment Imaging Results: 12/28/19 08:00 Brain without Contrast [MRI] Stat 12/28/19 09:04 MRI Cervical [Spine Cervical (Routine)] [MRI] Urgent Summary of Care Provided: This patient was seen in conjunction with Shawn Neri PA-C . I have independently interviewed and examined the patient and reviewed pertinent historical, laboratory, and other data. Please refer to Shawn Neri PA-C note for details of this patient's presentation, findings, and recommendations. I have reviewed Shawn Neri PA-C note and concur with documented findings. In brief, patient is a 44-year-old lady who presented with right-sided paresthesia and admitted to monitored bed for subsequent management Hospital course: As documented above - Physical Exam Vitals/I&O's: Vital Signs Temp Pulse Resp BP Pulse Ox 97.9 F 71 16 91/51 L 100 12/28/19 12:07 12/28/19 12:07 12/28/19 12:07 12/28/19 12:07 12/28/19 12:07 Oxygen Flow Rate (L/min) 2 Oxygen Delivery Method Room Air Weight: 59.3 kg Body Mass Index (BMI) 22.4 Finger Stick Blood Glucose 107 Intake and Output for Last 24 Hours 12/26/19 12/27/19 12/28/19 23:59 23:59 23:59 Intake Total 999 / 1000 / Balance 999 / 999 / Laboratory Results 12/27/19 20:30: WBC 8.7, RBC 5.25, Hgb 16.1 H, Hct 47.5 H, MCV 90.5, MCH 30.7, MCHC 33.9, RDW Std Deviation 42.2, RDW Coeff of Yuly 12.7, Plt Count 408, MPV 8.4, Immature Gran % (Auto) 0.200, Neut % (Auto) 45.2 L, Lymph % (Auto) 45.8 H, [place] % (Auto) 5.9, Eos % (Auto) 2.1, Baso % (Auto) 0.8, Absolute Neuts (auto) 3.9, Absolute Lymphs (auto) 3.97, Nucleated RBC % 0 12/27/19 20:30: PT 13.3, INR 1.0, APTT 29.5 12/27/19 20:30: Sodium 138, Potassium 3.6, Chloride 109 H, Carbon Dioxide 26.0, Anion Gap 3 L, BUN 6 L, Creatinine 0.82, Estim Creat Clear Calc 83.67, Est GFR (MDRD) Af Amer 98, Est GFR (MDRD) Non-Af 81, BUN/Creatinine Ratio 7.3 L, Glucose 89, Calcium 9.3, Troponin I < 0.015 12/27/19 20:30: Serum , Qual NEGATIVE 12/27/19 20:30: Magnesium 1.9, TSH 5.82 H 12/27/19 20:30: Hemoglobin A1c 5.0 12/27/19 20:45: POC Glucose 80 12/28/19 06:20: WBC 6.8, RBC 4.42, Hgb 13.6, Hct 40.7, MCV 92.1, MCH 30.8, MCHC 33.4, RDW Std Deviation 43.6, RDW Coeff of Yuly 12.8, Plt Count 335, MPV 8.6, Immature Gran % (Auto) 0.100, Neut % (Auto) 34.9 L, Lymph % (Auto) 52.5 H, [place] % (Auto) 7.3, Eos % (Auto) 4.2, Baso % (Auto) 1.0, Absolute Neuts (auto) 2.4, Absolute Lymphs (auto) 3.59, Nucleated RBC % 0 12/28/19 06:20: Sodium 141, Potassium 3.6, Chloride 114 H, Carbon Dioxide 23.0, Anion Gap 4 L, BUN 7, Creatinine 0.59, Estim Creat Clear Calc 107.26, Est GFR (MDRD) Af Amer 144, Est GFR (MDRD) Non-Af 119, BUN/Creatinine Ratio 11.9, Glucose 81, Calcium 7.8 L, Triglycerides 141, Cholesterol 160, LDL Cholesterol 99, VLDL Cholesterol 28, HDL Cholesterol 33 L 12/28/19 06:20: Free T4 1.04
== END 2019-12-28 11:12 | disposition home or self-care (01) ==
LOC: ED 21:03 → PCU 22:11
PROVIDERS: Admitting Provider Family Medicine; Emergency Provider Emergency Medicine; PCP Nurse Practitioner; Visit Provider Internal Medicine
DX: G43.109 Migraine with aura, not intractable, without status migrainosus (principal); M50.322 Other cervical disc degeneration at C5-C6 level; M48.02 Spinal stenosis, cervical region; M79.7 Fibromyalgia; R29.707 NIHSS score 7; J44.9 Chronic obstructive pulmonary disease, unspecified; F41.9 Anxiety disorder, unspecified; F32.9 Major depressive disorder, single episode, unspecified; F17.210 Nicotine dependence, cigarettes, uncomplicated; R47.1 Dysarthria and anarthria; F43.10 Post-traumatic stress disorder, unspecified; Z79.899 Other long term (current) drug therapy
CPT/HCPCS: 36415; 70450; 70496; 70498; 70551; 71045; 72141; 80048; 80061; 82962; 83036; 83735; 84439; 84443; 84484; 84703; 85025; 85610; 85730; 92610; 93005; 94762; 96361; 96374; 96375; 96376; 99218; 99251; 99285; J7030; J7040; Q9967; A4216; G0378; G0463; J2405

== ENCOUNTER 2020-09-20 15:55 | Emergency (ER) | payer MEDICARE, MEDICAID, SELFPAY ==
[2019-12-27 23:14] VITALS: BMI 22.4
[2020-09-20 15:56] VITALS: BP 100/75; PULSE 104; RESP 18; TEMP 36.2; O2SAT 100; BMI 22.8
--- NOTE | 2020-09-20 16:08 | RAD_ITS ---
STUDY: X-RAY - LUMBAR SPINE REASON FOR EXAM: Female, 45 years old. fall down stairs, pain TECHNIQUE: 3 view(s) of the lumbar spine were obtained. COMPARISON: None FINDINGS: Normal lumbar lordosis. There is no substantial scoliosis. There is a normal alignment of the vertebrae. Normal vertebral bodies. Minimal endplate spondylosis seen at several levels. Normal disc space heights. There is no demonstrated fracture or compression deformity. Right upper quadrant surgical clips are present. The soft tissue structures are unremarkable. RAD/Lumbar Spine 2 or 3 Views IMPRESSION: Minimal degenerative changes Electronically Signed: Stone Jimenez MD at 17:01 EST , Service support ,
--- NOTE | 2020-09-20 16:08 | RAD_ITS ---
STUDY: X-RAY - RIGHT KNEE REASON FOR EXAM: Female, 45 years old. fall down stairs, pain TECHNIQUE: 3 view(s) of the knee. COMPARISON: None. FINDINGS: Normal visualized distal femur. Normal visualized proximal tibia and fibula. Normal proximal tibiofibular articulation. There is no demonstrated fracture. Normal medial femorotibial compartment. Normal lateral femorotibial compartment. Normal patellofemoral articulation. There is no demonstrated joint effusion. The soft tissue structures are unremarkable. RAD/Knee 4 or More Views IMPRESSION: Normal x-ray examination of the knee. Electronically Signed: Stone Jimenez MD at 17:02 EST , Service support ,
--- NOTE | 2020-09-20 16:09 | RAD_ITS ---
STUDY: X-RAY - RIGHT WRIST REASON FOR EXAM: Female, 45 years old. fall down stairs, pain TECHNIQUE: 3 view(s) of the wrist were obtained. COMPARISON: None. FINDINGS: Normal visualized distal radius and ulna. Normal radiocarpal articulation. Normal distal radioulnar articulation. Normal carpal bones. Normal carpal articulations. Normal carpometacarpal articulation of the thumb. Normal second through fifth carpometacarpal articulations. Normal visualized metacarpal bones. The soft tissue structures are unremarkable. There is no demonstrated acute fracture. RAD/Wrist min 3 Views IMPRESSION: Normal x-ray examination of the wrist. Electronically Signed: Stone Jimenez MD at 17:00 EST , Service support ,
--- NOTE | 2020-09-20 16:10 | ED.DCSUM_ITS ---
History of Present Illness Chief Complaint: Fall Informant: Patient Occurred: Yesterday Mechanism/Context: - - my leg gave out while I was on the steps, and I fell down them Fall down steps #: 1 flight Location: right hip/pelvis and knee, right forearm and wrist Quality of Pain: Aching Current Severity: Severe Maximum Severity: Severe Worsened by: movement, trying to WB RLE Relieved by: rest and remaining still Associated Symptoms: Inability to ambulate. Negative for: Parasthesias, Weakness, Loss of function, Loss of consciousness, Amnesia Narrative: Patient states she has been worked up for multiple sclerosis due to her leg giving out on occasion, this occurred last night and caused her to fall down a flight of steps. She did not have any type of walking assist device with her. She remembers trying to catch herself with her right hand, but landed mostly on her right hip area. She thinks she twisted her right knee as well. She has had trouble walking since then and needed someone to carry her back up the steps to her apartment after the fall. - Past Medical History (1) Fibromyalgia Status: Chronic (2) Anxiety and depression Status: Chronic (3) COPD (chronic obstructive pulmonary disease) Status: Chronic (4) History of migraine Status: Chronic (5) History of pseudoseizure Status: Chronic (6) Irritable bowel syndrome Status: Chronic Comment: As reported by patient Past Medical History - Allergies and Home Meds Allergies/Adverse Reactions: Allergies bupropion HCl [From Wellbutrin] Allergy (Verified 09/20/20 15:57) Other divalproex sodium [From Depakote] Allergy (Verified 09/20/20 15:57) Rash doxycycline Allergy (Verified 09/20/20 15:57) Rash Gadolinium-MRI Contrast Medium [Gadolinium-Contrast Medium - MRI] Allergy (Verified 09/20/20 15:57) Hives lamotrigine [From Lamictal] Allergy (Verified 09/20/20 15:57) Rash latex Allergy (Verified 09/20/20 15:57) Hives phenytoin sodium [From Dilantin] Allergy (Verified 09/20/20 15:57) Hives phenytoin sodium extended [From Dilantin] Allergy (Verified 09/20/20 15:57) Hives erythromycin base Adverse Reaction (Verified 09/20/20 15:57) Nausea/Vom/Diarrhea quetiapine fumarate [From Seroquel] Adverse Reaction (Verified 09/20/20 15:57) Other Sulfa (Sulfonamide Antibiotics) Adverse Reaction (Verified 09/20/20 15:57) Vomiting varenicline tartrate [From Chantix] Adverse Reaction (Verified 09/20/20 15:57) Vomiting Primary Care Physician: Iva Gamble CARDIAC CATH LAB RADIOLOGY TECHNOLOGIST, CARDIAC CATH LAB RADIOLOGY TECHNOLOGIST-C [Primary Care Provider] - Surgical History: - - D&C x2, cholecystectomy, partial hysterectomy, x4. Smoking Status: Current every day smoker - Family History Maternal Family History: Reports: Diabetes, High Cholesterol, Heart Disease, Hypertension Paternal Family History: Reports: Diabetes, High Cholesterol, Heart Disease, Hypertension Review of Systems General: Denies: Chills, Fever, Sweats Eyes: Denies: Visual changes - bilaterally, Diplopia ENT: Denies: Bilateral ear pain, Rhinorrhea, Sore throat Cardiovascular: Denies: Chest pain, Palpitations Respiratory: Denies: Dyspnea, Cough, Dyspnea on exertion Gastrointestinal: Reports: Nausea, Vomiting. Denies: Abdominal pain, Diarrhea - due to the pain, Melena, Hematochezia Genitourinary: Denies: Dysuria, Hematuria, Frequency Musculoskeletal: Reports: Back pain - low, Extremity Pain. Denies: Neck pain, Swelling Skin: Reports: Abrasions. Denies: Rash, Wounds Neurological: Reports: Weakness - chronically intermittent leg weakness; currently resolved. Denies: Headache, Numbness Physical Exam Vital Signs/Narrative: Vital Signs Temp Pulse Resp BP Pulse Ox 09/20/20 15:56 97.1 F L 104 H 18 100/75 100 Inital Vital Signs reviewed: Yes General: Well nourished, Well developed, - - NAD Head: Normocephalic, Atraumatic Eyes: Perrl, EOMI ENT: TM's clear, No hemotympanum or drainage, No trauma. Negative for: Hemotympanum, Otorrhea Neck: Nontender, Full ROM. Negative for: Spinal Tenderness Cardiovascular: Regular rate, Regular rhythm, No murmurs Respiratory: No distress, CTA bilaterally, Chest nontender Abdomen: Soft, Nontender, Nondistended, Normal bowel sounds Back: Spinal Tenderness - lower lumbar. nml inspection, no step offs., Paraspinal Tenderness - right lumbosacral Skin: Normal color, No rash, Trauma - superficial abrasions right dorsal forearm Neurological: Alert, Oriented x3, Cranial nerves II-XII grossly intact, Normal Strength, Normal Sensation Psychological: - - anxious Diagnostic/Tx/Re-eval Clinical Impression(s) from Imaging Studies Knee X-Ray 09/20/20 16:08 IMPRESSION: Normal x-ray examination of the knee. Electronically Signed: Stone Jimenez MD at 17:02 EST , Service support , Lumbar Spine X-Ray 09/20/20 16:08 IMPRESSION: Minimal degenerative changes Electronically Signed: Stone Jimenez MD at 17:01 EST , Service support , Wrist X-Ray 09/20/20 16:09 IMPRESSION: Normal x-ray examination of the wrist. Electronically Signed: Stone Jimenez MD at 17:00 EST , Service support , Hip/Pelvis X-Ray 09/20/20 16:20 IMPRESSION: Normal x-ray examination of the pelvis and hip. Electronically Signed: Stone Jimenez MD at 17:15 EST , Service support , - Medical Decision Making X-rays are all negative. Patient is able to bear weight although with pain. When I internally externally rotate her right hip, the majority of her pain is in the area of the external rotators and her pelvic brim, not the groin/joint. Therefore my suspicion for an occult nondisplaced hip fracture is low. Her pain was treated and she felt and appeared much better. On reevaluation, she is sitting reclined in the bed with her legs crossed in extension, crossed at the ankles. I am comfortable with her being discharged home as is she, she is asking for something for pain just for tomorrow. Given a prescription for tramadol. ED Disposition - Plan for ED Patient: Disposition: Home or Assisted Living Diagnosis: Fall down steps, Contusion of right hip, Right knee sprain, Right wrist sprain Instructions: ED Hip Contusion Prescriptions: traMADol [Ultram] 50 mg PO Q4H PRN PRN 2 Days #10 tab PRN Reason: Pain Prescription Printed Referrals: Iva Gamble CARDIAC CATH LAB RADIOLOGY TECHNOLOGIST, CARDIAC CATH LAB RADIOLOGY TECHNOLOGIST-C [Primary Care Provider] - 3-5 Days if not improving
[2020-09-20] MEDS: Morphine 4 MG/ML Syringe IM (16:15)
[2020-09-20] MEDS: proMETHazine 25 MG/ML Syringe 12.5 MG IM (16:15)
--- NOTE | 2020-09-20 16:20 | RAD_ITS ---
STUDY: X-RAY - PELVIS AND RIGHT HIP REASON FOR EXAM: Female, 45 years old. fall down stairs, right hip pain TECHNIQUE: 3 views of the pelvis and hip. COMPARISON: None. FINDINGS: There is a non-specific bowel gas pattern. Normal visualized soft tissue structures. No visualized fracture or displaced bony fragment. Normal bilateral iliac wings, sacroiliac joints and visualized sacrum. Normal bilateral superior and inferior pubic rami. Normal pubic symphysis. Normal bilateral ischial tuberosities. Normal visualized femoral head. Normal acetabulum. Normal hip joint. RAD/HIP, UNI W/ Pelvis 2-3 Views IMPRESSION: Normal x-ray examination of the pelvis and hip. Electronically Signed: Stone Jimenez MD at 17:15 EST , Service support ,
[2020-09-20 17:59] VITALS: BP 110/77; PULSE 87; RESP 14; O2SAT 99
--- NOTE | 2020-09-20 18:01 | ED.RN ---
pt ambulated out of unit with limp. pt reports usually uses a cane this nurse stoodby to walk pt out but able to amb independently.
== END 2020-09-20 17:59 | disposition home or self-care (01) ==
PROVIDERS: Emergency Provider Emergency Medicine; PCP Nurse Practitioner
DX: S70.01XA Contusion of right hip, initial encounter (principal); S83.91XA Sprain of unspecified site of right knee, initial encounter; S63.501A Unspecified sprain of right wrist, initial encounter; F17.200 Nicotine dependence, unspecified, uncomplicated; J44.9 Chronic obstructive pulmonary disease, unspecified; W10.9XXA Fall (on) (from) unspecified stairs and steps, initial encounter
CPT/HCPCS: 72100; 73110; 73502; 73564; 96372; 99282

== ENCOUNTER 2021-04-27 10:03 | Emergency (ER) | payer MEDICARE, MEDICAID, SELFPAY ==
[2021-04-27 10:07] VITALS: BP 97/68; PULSE 111; RESP 16; TEMP 36; O2SAT 99; BMI 22.6
--- NOTE | 2021-04-27 10:20 | EX.ED.GENINJ ---
HPI History of Present Illness Chief Complaint: Fall Detail of Chief Complaint: Fall with injury to right hip that occurred today Informant: patient Narrative Narrative: Patient presents to the emergency department after sustaining a fall today and injuring her right hip. Patient states that she was in the bathroom changing of some shorts when she got one of her dizzy spells and fell hitting her right hip against the tub. Patient has history of chronic right hip pain and is scheduled to see orthopedics in 2 days. Patient states that she had an MRI few weeks ago of the hip and she thinks it showed a lot of arthritic changes. Patient also in pain management and has had injections into the hip in the past but nothing seems to help. Patient has basically taking ibuprofen and Tylenol at home. She states she had a hard time getting up after her fall because of the amount of pain she was having. Patient denies any other injuries. 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 [facility] Medical History (Updated 04/27/21 @ 12:[address] Tyson Verde, ) Fibromyalgia Home Medications albuterol sulfate [Ventolin HFA] 1 - 2 puff INHALATION Q4H PRN PRN 12/05/15 [History Last Taken Unknown] cholecalciferol (vitamin D3) 10,000 unit PO DAILY 12/27/19 [History Last Taken 12/26/19] gabapentin 300 mg PO TID 12/27/19 [History Last Taken 12/26/19 22:00] meloxicam 15 mg PO QHS 12/27/19 [History Last Taken 12/25/19] multivitamin 1 ea PO DAILY 12/27/19 [History Last Taken 12/26/19] sumatriptan succinate 100 mg PO DAILY PRN PRN 12/27/19 [History Last Taken 12/25/19] vitamin B complex 1 ea PO DAILY 12/27/19 [History Last Taken 12/26/19] acetaminophen 650 mg PO Q6H PRN PRN tab 12/28/19 [Rx Last Taken Unknown] fremanezumab-vfrm 225 mg SQ QMONTH 09/20/20 [History Last Taken Unknown] prazosin 2 mg PO QHS 09/20/20 [History Last Taken Unknown] tizanidine 4 mg PO QHS 09/20/20 [History Last Taken Unknown] hydrocodone-acetaminophen 1 tab PO Q4H PRN PRN 2 Days #10 tablet 04/27/21 [Rx Last Taken Unknown] lorazepam 0.5 mg PO DAILY PRN 04/27/21 [History Last Taken Unknown] Allergy/AdvReac Type Severity Reaction Status Date / Time aspirin Allergy Shortness Verified 04/27/21 10:06 of breath bupropion HCl Allergy Other Verified 04/27/21 10:06 [From Wellbutrin] divalproex sodium Allergy Rash Verified 04/27/21 10:06 [From Depakote] doxycycline Allergy Rash Verified 04/27/21 10:06 Gadolinium-MRI Contrast Allergy Hives Verified 04/27/21 10:06 Medium [Gadolinium-Contrast Medium - MRI] lamotrigine [From Lamictal] Allergy Rash Verified 04/27/21 10:06 latex Allergy Hives Verified 04/27/21 10:06 phenytoin sodium Allergy Hives Verified 04/27/21 10:06 [From Dilantin] phenytoin sodium extended Allergy Hives Verified 04/27/21 10:06 [From Dilantin] erythromycin base AdvReac Nausea/Vom/ Verified 04/27/21 10:06 Diarrhea quetiapine fumarate AdvReac Other Verified 04/27/21 10:06 [From Seroquel] Sulfa (Sulfonamide AdvReac Vomiting Verified 04/27/21 10:06 Antibiotics) varenicline tartrate AdvReac Vomiting Verified 04/27/21 10:06 [From Chantix] Social History Smoking Status: Current every day smoker tobacco type: cigarettes ROS ROS ED ROS Narrative Intermittent dizziness Constitutional Constitutional ED: Reports systems reviewed and no addt'l complaints, except as documented; Denies body ache(s), change in weight or chills Eyes Eyes: Denies acute decrease in peripheral vision, change in vision, double vision or loss of vision ENT ENT ED: Reports none; Denies ear pain, lip swelling, loss taste/smell, neck pain, otalgia or sore throat Cardiovascular Cardiovascular: Reports none; Denies abdominal pain, chest pain with activity, leg edema, lightheadedness, palpitations, rapid heart rate or syncope Respiratory/Chest Respiratory/Chest: Reports none; Denies change in mental status, dry cough, dyspnea, hemoptysis, shortness of breath at rest or shortness of breath with exertion Gastrointestinal Gastrointestinal: Reports none; Denies abdominal pain, change in stool character, diarrhea, hematemesis, hematochezia, melena, rectal bleeding or vomiting Genitourinary Genitourinary ED: Reports none; Denies abdominal discomfort, anuria, dysuria, genital pain or polyuria Musculoskeletal Musculoskeletal: Reports none and other Details: Right hip pain ; Denies arthralgias, back pain, difficulty walking, extremity pain, muscle weakness or myalgias Integumentary Reports none; Denies abscess or rash Neurologic Neurologic: Reports none; Denies abnormal gait, confusion, focal weakness, frequent falls, headache(s), loss of vision, numbness, paresthesias, radicular pain, vertigo or weakness Psychiatric Psychiatric: Reports systems reviewed and no addt'l complaints, except as documented and none; Denies behavioral changes, confusion, difficulty concentrating, hallucinations, suicidal ideation, tactile hallucinations or visual hallucinations Endocrine Endocrinology: Denies none, cold intolerance, excessive sweating, fatigue or heat intolerance Hematologic/Lymphatic Hematologic/Lymphatic: Reports none; Denies anemia, easy bleeding or easy bruising Allergic/Immunologic Allergic/Immunologic ED: Denies as per HPI, none, lip swelling, mouth swelling, throat swelling, tongue swelling or hives EXAM Physical Exam Const Vital Signs: 04/27/21 10:07 04/27/21 10:15 Temperature 96.8 F L Temperature Source Temporal Pulse Rate 111 H Respiratory Rate 16 Respiratory Effort Normal Blood Pressure 97/68 Blood Pressure Mean 77 Pulse Ox 99 Oxygen Delivery Method Room Air Room Air Positive well nourished and well developed General Appearance ED: well developed and NAD HEENT Reports TM's clear and moist mucous membranes normocephalic and atraumatic; Negative for trauma or tenderness Tympanic Membrane ED: Yes TM's clear Eyes PERRL and EOMs intact bilaterally General Eye ED: Negative for pale conjunctiva or scleral icterus Neck no lymphadenopathy, supple and no JVD General: Negative for tenderness Chest Wall inspection of chest normal and palpation of chest normal Chest: Negative for tenderness Resp normal respiratory effort and clear to auscultation bilaterally Effort and Inspection: Negative for respiratory distress or pain with movement Auscultation: Negative for rhonchi, wheezes or diminished lung sounds Cardio regular rate, regular rhythm, S1 normal heart sound, S2 normal heart sound and no murmurs Peripheral Pulses: pulses 2+ throughout GI normal to inspection, nondistended, normoactive bowel sounds, soft to palpation, non-tender, non-distended and no masses Back/Spine no CVA tenderness and no thoracic nor lumbar tenderness Extremity normal to inspection Extremity Narrative: No external evidence of trauma to her hip. There is no ecchymosis or bruising noted. Patient does have tenderness over the hip and right ilium. No shortening or external rotation noted. She is neurovascular intact distally. General Extremety ED: Yes tenderness; Negative for edema General Extremity: Negative for edema Neuro oriented x3, CN's II-XII intact bilaterally, no sensory deficits noted and gait normal Sensorium / Orientation: awake, alert, oriented to person, oriented to place and oriented to time Motor Exam: strength 5/5 throughout and strength abnormal Psych mental status grossly normal Skin no rashes or lesions noted and no wounds MDM MDM MDM Narrative Medical decision making narrative: Patient given 1 [place] for pain. Her dizziness is chronic I did not feel needed further work-up. She will follow up with orthopedics in 2 days she already has the appointment scheduled. Patient will be given a prescription for few [place] for pain. Radiography Diagnostic Testing: Radiology Impression Hip/Pelvis X-Ray 04/27/21 10:30 IMPRESSION: Normal x-ray examination of the pelvis and right hip. Electronically Signed: Vin Sloan MD at 10:49 EDT Tel , Service support , Three-view x-rays of right hip and pelvis obtained interpreted by myself as no acute fractures. Radiology in agreement. Discharge Plan Triage Chief Complaint: Fall Other Complaint: Dizziness ED Provider: Tyson Verde Dx/Rx/DC Orders Clinical Impression: Contusion of hip, right Instructions: ED Hip Contusion Prescriptions: New hydrocodone-acetaminophen [hydrocodone-acetaminophen] 1 TABLET tablet 1 tab PO Q4H PRN PRN (Reason: Pain) 2 Days Qty: 10 RF: 0 No Action albuterol sulfate [Ventolin HFA] 1 INHALER inhaler 1 - 2 puff inhalation Q4H PRN PRN (Reason: Shortness Of Breath) RF: 0 gabapentin 300 MG capsule 300 mg PO TID RF: 0 cholecalciferol (vitamin D3) 5,000 UNIT tablet,disintegrating 10,000 unit PO DAILY RF: 0 sumatriptan succinate 100 MG tablet 100 mg PO DAILY PRN PRN (Reason: migraines) RF: 0 multivitamin 1 EACH tablet 1 ea PO DAILY RF: 0 meloxicam 15 MG tablet 15 mg PO QHS RF: 0 vitamin B complex 1 EACH tablet 1 ea PO DAILY RF: 0 acetaminophen 325 MG tablet 650 mg PO Q6H PRN PRN (Reason: Headache) RF: 0 prazosin 2 MG capsule 2 mg PO QHS RF: 0 tizanidine 4 MG capsule 4 mg PO QHS RF: 0 fremanezumab-vfrm 225 MG/1.5 ML syringe 225 mg SQ QMONTH RF: 0 lorazepam 0.5 mg tablet 0.5 mg PO DAILY PRN (Reason: Anxiety) RF: 0 Primary Care Provider: Iva Gamble NP Referrals: Wesly Nance DO [STAFF PHYSICIAN] - 2 Days vIa Gamble NP, [facility] SPECIALIST-C [Primary Care Provider] - Disposition Disposition: Home, Self Care
--- NOTE | 2021-04-27 10:30 | RAD_ITS ---
STUDY: X-RAY - PELVIS AND RIGHT HIP REASON FOR EXAM: Female, 45 years old. Fall, right hip pain TECHNIQUE: 3 views of the pelvis and right hip. COMPARISON: 09/20/20 FINDINGS: There is a non-specific bowel gas pattern. Normal visualized soft tissue structures. Normal bilateral iliac wings, sacroiliac joints and visualized sacrum. Normal bilateral superior and inferior pubic rami. Normal pubic symphysis. Normal bilateral ischial tuberosities. Normal visualized femoral head. Normal acetabulum. Normal hip joint. RAD/HIP, UNI W/ Pelvis 2-3 Views IMPRESSION: Normal x-ray examination of the pelvis and right hip. Electronically Signed: Vin Sloan MD at 10:49 EDT Tel , Service support ,
[2021-04-27] MEDS: Ondansetron ODT 4 MG Tablet PO (11:31)
[2021-04-27] MEDS: HYDROcodone Bitartrate/Apap 5/325 Tablet PO (11:32)
[2021-04-27 12:27] VITALS: BP 108/86; PULSE 79; RESP 15; O2SAT 97
== END 2021-04-27 12:28 | disposition home or self-care (01) ==
PROVIDERS: Emergency Provider Emergency Medicine; PCP Nurse Practitioner
DX: S70.01XA Contusion of right hip, initial encounter (principal); F17.210 Nicotine dependence, cigarettes, uncomplicated; W19.XXXA Unspecified fall, initial encounter; Z79.899 Other long term (current) drug therapy
CPT/HCPCS: 73502; 99283

== ENCOUNTER → 2021-05-20 15:45 | Outpatient (CLI) | payer MEDICARE, MEDICAID, SELFPAY ==
[2021-04-29 10:16] VITALS: BMI 22.0
--- NOTE | 2021-05-20 15:58 | MRI_ITS ---
STUDY: MRI RIGHT HIP REASON FOR EXAM: Right hip pain for years, increased in the last 2 years. TECHNIQUE: Standardized fat and water weighted pulse sequences were obtained in all 3 orthogonal planes. COMPARISON: Radiographs 04/27/2021. FINDINGS: There is focal synovitis anterior to the right femoral neck (T2 axial images 14, 15; proton-density sagittal image 11) measuring approximately 1.5 cm in length. Normal acetabulum. Normal labrum. Normal femoral head. Normal femoral neck and intratrochanteric region. Normal gluteus minimus, medius and iliopsoas tendons and distal insertions. There is no trochanteric, iliopsoas or iliopectineal bursitis. Normal superior and inferior pubic rami. Normal pubic symphysis. Normal ischial tuberosity. Normal origin of the hamstring tendons. Normal visualized iliac wing, sacroiliac joint, and sacral ala. Normal visualized soft tissue structures of the pelvis. MRI/Lower Ext Joint Only (Routine) IMPRESSION: Focal synovitis of the right hip. Otherwise, unremarkable MRI of the right hip. Electronically Signed: Robe Smith MD at 8:49 EDT Tel , Service support ,
== END ==
PROVIDERS: PCP Nurse Practitioner; Referring Provider Orthopaedic Surgery; Visit Provider Orthopaedic Surgery
DX: M25.551 Pain in right hip (principal); R29.6 Repeated falls; S79.911A Unspecified injury of right hip, initial encounter
CPT/HCPCS: 73721

== ENCOUNTER → 2021-06-20 12:21 | Outpatient (CLI) | payer MEDICARE, MEDICAID, SELFPAY ==
--- NOTE | 2021-06-20 14:28 | TELEMED_ITS ---
[facility] has confirmed receipt of a request for visit. This document confirms receipt of the order initiating the consult. To find the results of the consultation, please view the patient's reports for the scanned Telemed Consult.
== END ==
PROVIDERS: PCP Nurse Practitioner; Referring Provider Psychiatry & Neurology Neurology; Visit Provider Psychiatry & Neurology Neurology
DX: R56.9 Unspecified convulsions (principal)
CPT/HCPCS: 95819

== ENCOUNTER 2022-03-08 15:49 | Emergency (ER) | payer MEDICARE, MEDICAID, SELFPAY ==
[2022-03-08] VITALS (11 sets, daily range): BP systolic 101–141; BP diastolic 60–85; PULSE 60–88; RESP 15–25; TEMP 36.8; O2SAT 96–100; BMI 24.6; BMI 21.9
--- NOTE | 2022-03-08 15:50 | CT_ITS ---
We are attempting to reach an attending provider to discuss findings. An addendum with communication details will be sent when the communication is complete. STUDY: CT BRAIN WITHOUT CONTRAST REASON FOR EXAM: Neurodeficit acute. Stroke suspected., old. RADIATION DOSAGE (If Supplied By Facility): CTDIvol = ( ) mGy, DLP = ( ) mGycm TECHNIQUE: Transaxial CT imaging of the brain was performed without administration of intravenous contrast material. Individualized dose optimization techniques were used for this CT. COMPARISON: No relevant priors. FINDINGS: Normal soft tissue structures. Normal calvarium. Lateral and third ventricles are normal. There is minimal prominence of the temporal horns bilaterally of uncertain significance. Normal white matter tracts of the cerebral hemispheres. Normal basal ganglia and thalami. Normal brainstem. Normal cerebellum. There is no intracranial hemorrhage. There are no findings of an acute ischemic infarction. Normal visualized paranasal sinuses. CT/STROKE Brain/Head without Cont IMPRESSION: Minimal prominence of the temporal horns bilaterally of uncertain significance. Electronically Signed: Jose Angel Alberts MD at 16:27 EDT ,
--- NOTE | 2022-03-08 15:50 | EKG12_ITS ---
Test Reason : STROKE ALERT Blood Pressure : / mmHG Vent. Rate : 072 BPM Atrial Rate : 072 BPM P-R Int : 130 ms QRS Dur : 078 ms QT Int : 398 ms P-R-T Axes : 069 073 072 degrees QTc Int : 435 ms Normal sinus rhythm Normal ECG Confirmed by MEGAN SMITH, AMY ([id number]), electronic news gathering editor ESPERANZA ORO ([id number]) on 03/10/2022 11:38:07 AM Referred By: JUANY Confirmed By:AMY GUZMAN MD
--- NOTE | 2022-03-08 15:52 | CT_ITS ---
We are attempting to reach an attending provider to discuss findings. An addendum with communication details will be sent when the communication is complete. STUDY: CTA HEAD AND NECK WITH CONTRAST REASON FOR EXAM: Female, 46 years old. Expressive aphasia RADIATION DOSAGE (If Supplied By Facility): CTDIvol = ( 18.14 ) mGy, DLP = ( 569.30 ) mGycm TECHNIQUE: CT angiography was performed with a multi-detector CT scanner. Data acquisition was obtained from the skull base through the vertex following intravenous administration of IV 100mL [id number]-[id number]. MIP images were reconstructed from the axial data set. Post-processing of the angiographic images was performed, with multiplanar reformation and 3D reconstruction. Individualized dose optimization techniques were used for this CT. COMPARISON: CT brain 03/0711/07/2021. FINDINGS: Normal bilateral petrous carotid arteries. Normal right cavernous carotid artery with a normal supraclinoid bifurcation. Normal left cavernous carotid artery with a normal supraclinoid bifurcation. Normal right A1 segments of the anterior cerebral artery. Normal left A1 segments of the anterior cerebral artery. Normal intact anterior communicating artery (ACOM). Normal bilateral A2 segments of the anterior cerebral arteries. Normal right M1 and M2 segments of the middle cerebral arteries, with a normal M1 bifurcation. Normal left M1 and M2 segments of the middle cerebral arteries, with a normal M1 bifurcation. Normal right posterior communicating artery (PCOM). Normal left posterior communicating artery (PCOM). Normal bilateral vertebral arteries. Normal basilar artery with a normal basilar bifurcation. The visualized bilateral superior cerebellar (SCA) arteries are normal. Normal bilateral P1, P2 and visualized P3 segments of the posterior cerebral arteries. There is no demonstrated aneurysm of the [place]. There is no demonstrated abnormality of the visualized brain. AORTIC ARCH: Normal visualized aortic arch. Normal origins of the brachiocephalic, left common carotid, and left subclavian arteries. RIGHT CAROTID ARTERIES: Normal right common carotid artery (CCA). Normal right common carotid bulb. Normal origin of the right internal carotid (ICA) artery without a hemodynamically significant stenosis. Normal visualized cervical portion of the right internal carotid artery. Normal origin of the right external carotid artery (ECA). LEFT CAROTID ARTERIES: Normal left common carotid artery (CCA). There is minimal soft plaque within the posterior lateral left carotid bulb on series 2 image #199. Normal origin of the left internal carotid (ICA) artery without a hemodynamically significant stenosis. Normal visualized cervical portion of the left internal carotid artery. Normal origin of the left external carotid artery (ECA). VERTEBRAL ARTERIES: Normal bilateral vertebral arteries. Mild biapical fibrosis. There is a left jugulodigastric lymph node series 2 image 236 measuring 0.68 x 1.08 cm consistent with reactive lymph node. Smaller bilateral subpathologic sized jugulodigastric lymph nodes are seen bilaterally. Incidentally noted is moderate opacification of the left mastoid air cells. Brain parenchymal findings in the cord with prior CT brain performed same day. CT/STROKE CTA Head AND Neck W/Con IMPRESSION: Minimal soft plaque within the posterior lateral left carotid bulb on series 2 image 199. This produces a mild stenosis (1-39%). Remainder of arterial structures detailed above normal. Mild biapical fibrosis. Subpathologic left jugulodigastric lymph node likely benign reactive lymph node. Additional smaller bilateral subpathologic jugulodigastric lymph nodes also likely benign. Moderate opacification left mastoid air cells. Electronically Signed: Jose Angel Alberts MD at 17:42 EDT Reading Location ID and State: [facility] / [place] Tel , Service support ,
[2022-03-08 16:14] LABS: Absolute Lymphocyte Count 3.27 X10^3/uL (0.83-4.51); Basophil# 0.05 X10^3/uL; Basophil% 0.7 % (0-1); Eosinophil# 0.42 X10^3/uL; Eosinophils% 5.9 % (0-5); Hematocrit 43.1 % (37-47); Hemoglobin 14.7 g/dL (12.0-15.0); Lymphocyte # 3.27 X10^3/ul (0.83-4.51); Lymphocyte % 45.9 % (19-41); Mean Corp Hgb Conc 34.1 g/dL (32-36); Mean Corpuscular Hgb 30.6 pg (27.0-32.0); Mean Corpuscular Volume 89.6 fL (81-99); Monocyte# 0.41 X10^3/uL; Monocyte% 5.8 % (0-10); NRBC Flagged by Analyzer 0 % (0-5); Neutrophil # 2.96 X10^3/uL (2.7-7.7); Neutrophil % 41.6 % (47-70); Platelet Count 329 K/mm3 (150-450); RBC Distribution Width CV 13.5 % (11.6-14.6); RBC Distribution Width SD 44.4 fl (35.1-43.9); Red Blood Count 4.81 M/mm3 (4.2-5.4); White Blood Count 7.1 K/mm3 (4.4-11.0)
[2022-03-08 16:33] LABS: Anion Gap 5 (5-15); BUN 10 mg/dL (7-18); BUN/Creat Ratio 11.7 RATIO (10-20); Calcium,Total 8.9 mg/dL (8.5-10.1); Chloride 110 mmol/L (98-107); Creatinine, Serum 0.85 mg/dL (0.55-1.02); EST Glomerular Filtration Rate 77 mL/min (>60); Est Glom Filt Rate - Afr Amer 93 mL/min (>60); Estimated Creatinine Clearance 69.87 ml/min; Glucose 91 mg/dL (74-106); Sodium Level 139 mmol/L (136-145); Troponin-I HS < 3 pg/mL (3.0-54.0)
[2022-03-08 16:34] LABS: International Normalized Ratio 1.1; Prothrombin Time (Protime)PT. 13.4 SECONDS (11.7-14.9)
[2022-03-08 16:35] LABS: Partial Thromboplast Time 30.2 Seconds (24.1-36.2)
--- NOTE | 2022-03-08 17:05 | RAD_ITS ---
STUDY: X-RAY CHEST REASON FOR EXAM: Female, 46 years old. Neuro deficit, acute, stroke suspected TECHNIQUE: Single frontal view COMPARISON: None. FINDINGS: The lungs are clear and expanded. There is no demonstrated pleural abnormality. Normal size heart. Normal mediastinum and ludmila. Normal visualized pulmonary arteries. Normal visualized aortic arch and descending thoracic aorta. Normal visualized thoracic spine. Normal visualized ribs, clavicles, and shoulders. There is no demonstrated abnormality of the visualized soft tissue structures of the upper abdomen. RAD/Chest 1 View IMPRESSION: Normal x-ray examination of the chest. Electronically Signed: Jose Angel Alberts MD at 17:49 EDT ,
--- NOTE | 2022-03-08 19:07 | ED.VIS.STROK ---
HPI History of Present Illness Chief Complaint: Neuro S/Sx Informant: patient and parent Onset/Context/Timing Onset: Today Context: Sudden Onset Timing: Continuous Quality and Location: Positive for Slurred Speech Onset: Approximately 20 to 30 minutes prior to arrival Worsened by: Nothing Relieved by: Nothing Associated Symptoms Associated Symptoms: Negative for Headache, Nausea, Vomiting and Chest Pain Narrative Narrative: Patient presents with stroke symptoms that began today. Patient was riding in the car with her boyfriend when the symptoms began. Mother states the patient called her 20 minutes prior to her arriving in the emergency department and was slurring her speech at that time. Boyfriend states that the symptoms started just prior to that. Patient states she is having difficulty speaking. Patient states she also has difficulty moving her arms and legs. Patient denies any fevers or chills. Patient denies any chest pain or shortness of breath. PFSH PFSH Medical History Anxiety and depression Asthma Conversion disorder Emphysema/COPD Fibromyalgia History of pseudoseizure Irritable bowel syndrome Migraines Tobacco use Home Medications cholecalciferol (vitamin D3) 10,000 unit PO DAILY 12/27/19 [History Last Taken 12/26/19] gabapentin 300 mg PO TID 12/27/19 [History Last Taken 12/26/19 22:00] vitamin B complex 1 ea PO DAILY 12/27/19 [History Last Taken 12/26/19] prazosin 2 mg PO QHS 09/20/20 [History Last Taken Unknown] tizanidine 4 mg PO QHS 09/20/20 [History Last Taken Unknown] lorazepam 0.5 mg PO DAILY PRN 04/27/21 [History Last Taken Unknown] Ajovi IM PRN 07/01/21 [History Last Taken Unknown] ascorbate calcium (vitamin C) 500 mg tablet 500 mg PO .every other day tab 07/01/21 [History Last Taken Unknown] calcium carbonate 500 mg calcium (1,250 mg) chewable tablet 500 mg PO DAILY 07/01/21 [History Last Taken Unknown] diphenhydramine HCl 25 mg capsule 25 mg PO TID PRN 07/01/21 [History Last Taken Unknown] melatonin 5 mg capsule 5 mg PO DAILY cap 07/01/21 [History Last Taken Unknown] multivitamin 1 tab PO DAILY 07/01/21 [History Last Taken Unknown] promethazine 12.5 mg tablet 12.5 mg PO TID 07/01/21 [History Last Taken Unknown] turmeric root extract 1,053 mg tablet 1,076 mg PO DAILY 07/01/21 [History Last Taken Unknown] vitamin E (dl, acetate) 45 mg (100 unit) capsule 45 mg PO DAILY 07/01/21 [History Last Taken Unknown] Allergy/AdvReac Type Severity Reaction Status Date / Time bee pollen Allergy Severe Anaphylaxis Verified 03/08/22 16:34 coconut Allergy Intermediate Eye Verified 03/08/22 16:34 swelling, Rash egg Allergy Mild Rash, GI Verified 03/08/22 16:34 cramping aspirin Allergy Shortness Verified 03/08/22 16:34 of breath bupropion HCl Allergy Other Verified 03/08/22 16:34 [From Wellbutrin] divalproex sodium Allergy Rash Verified 03/08/22 16:34 [From Depakote] doxycycline Allergy Rash Verified 03/08/22 16:34 Gadolinium-MRI Contrast Allergy Hives Verified 03/08/22 16:34 Medium [Gadolinium-Contrast Medium - MRI] lamotrigine [From Lamictal] Allergy Rash Verified 03/08/22 16:34 latex Allergy Hives Verified 03/08/22 16:34 phenytoin sodium Allergy Hives Verified 03/08/22 16:34 [From Dilantin] phenytoin sodium extended Allergy Hives Verified 03/08/22 16:34 [From Dilantin] pineapple Allergy Swelling, Verified 03/08/22 16:34 Rash erythromycin base AdvReac Nausea/Vom/ Verified 03/08/22 16:34 Diarrhea quetiapine fumarate AdvReac Other Verified 03/08/22 16:34 [From Seroquel] Sulfa (Sulfonamide AdvReac Vomiting Verified 03/08/22 16:34 Antibiotics) varenicline tartrate AdvReac Vomiting Verified 03/08/22 16:34 [From Chantix] Family History (Updated 03/08/22 @ 15:[address] Rissa Anderson MD) Mother Diabetes Heart disease Hypertension HLD (hyperlipidemia) Father Diabetes Heart disease Hypertension HLD (hyperlipidemia) Surgical History H/O section H/O knee surgery History of cholecystectomy History of dilation and curettage S/P partial hysterectomy Social History adopted: Yes household members: none housing: house current occupational status: disabled Smoking Status: Current every day smoker tobacco type: cigarettes Smoking packs per day: 0.5 Smoking cigarettes per day: 10.0 alcohol intake: never substance use type: does not use what type of physical activity do you participate in: other details: home exercises, fishing do you feel safe at home: Yes ROS ROS ED Constitutional Constitutional ED: Denies chills or fever(s) Eyes Eyes: Denies blurry vision or change in vision ENT ENT ED: Denies rhinorrhea or sore throat Cardiovascular Cardiovascular: Denies chest pain or palpitations Respiratory/Chest Respiratory/Chest: Denies cough or dyspnea Gastrointestinal Gastrointestinal: Denies nausea or vomiting Genitourinary Genitourinary ED: Denies dysuria or hematuria Musculoskeletal Musculoskeletal: Denies back pain or neck pain Integumentary Denies abscess or rash Neurologic Neurologic: Denies headache(s) or weakness Allergic/Immunologic Allergic/Immunologic ED: Denies mouth swelling or urticaria EXAM Physical Exam Const Vital Signs: 03/08/22 15:50 03/08/22 15:57 03/08/22 16:09 Temperature 98.2 F Temperature Source Temporal Pulse Rate 88 69 Respiratory Rate 16 25 H Blood Pressure 117/65 119/81 H Blood Pressure Mean 82 93 Pulse Ox 96 100 Oxygen Delivery Method Room Air Room Air Room Air 03/08/22 16:14 03/08/22 16:22 03/08/22 17:00 Temperature Temperature Source Pulse Rate 75 69 84 Respiratory Rate 16 15 15 Blood Pressure 119/81 H 128/79 H 115/74 Blood Pressure Mean 93 95 87 Pulse Ox 99 100 99 Oxygen Delivery Method Room Air Room Air Room Air 03/08/22 17:30 03/08/22 18:00 03/08/22 18:30 Temperature Temperature Source Pulse Rate 64 87 68 Respiratory Rate 18 18 16 Blood Pressure 110/76 141/85 H 104/78 Blood Pressure Mean 87 103 86 Pulse Ox 100 98 100 Oxygen Delivery Method Room Air Room Air Room Air 03/08/22 19:00 03/08/22 19:24 03/08/22 19:27 Temperature Temperature Source Pulse Rate 60 72 Respiratory Rate 17 17 Blood Pressure 101/61 134/77 H 101/60 Blood Pressure Mean 74 96 73 Pulse Ox 97 98 Oxygen Delivery Method Room Air Room Air Positive well nourished, well developed and unkempt General Appearance ED: unkempt, well developed and NAD HEENT Reports moist mucous membranes atraumatic Eyes PERRL and EOMs intact bilaterally Neck supple and no JVD Resp normal respiratory effort and clear to auscultation bilaterally Cardio Rate: regular rate Rhythm: regular rhythm GI soft to palpation and non-tender Extremity normal to inspection General Extremety ED: Negative for deformity or tenderness General Extremity: Negative for deformity Neuro CN's II-XII intact bilaterally and no sensory deficits noted Sensorium / Orientation: awake and alert Speech: expressive aphasia Gait (Neuro): unable to assess gait Motor Exam: general weakness Psych Appearance: unkempt Skin Rashes: no rashes STROKE Vital Signs/Narrative: Vital Signs Temp Pulse Resp BP Pulse Ox 03/08/22 19:00 60 17 101/61 97 03/08/22 18:30 68 16 104/78 100 03/08/22 18:00 87 18 141/85 H 98 03/08/22 17:30 64 18 110/76 100 03/08/22 17:00 84 15 115/74 99 03/08/22 16:22 69 15 128/79 H 100 03/08/22 16:14 75 16 119/81 H 99 03/08/22 16:09 69 25 H 119/81 H 100 03/08/22 15:50 98.2 F 88 16 117/65 96 Inital Vital Signs reviewed: Yes NIHSS Initial: 1a Level of Consciousness: 0 1b LOC Questions (Score 2 if aphasic/stupor): 0 1c LOC Commands (Only score 1st attempt): 0 2 Best Gaze (If aphasic, use reflexive mvmts.): 0 3 Visual: 0 4 Facial Palsy: 0 5 Motor Arm Right (UN = amputation/fusion): 2 5 Motor Arm Left: 2 6 Motor Leg Right: 2 6 Motor Leg Left: 2 9 Best Language: 1 10 Dysarthria (mute, coma=2, intubated=UN): 2 Total Score: 11 MDM MDM MDM Narrative Medical decision making narrative: Stroke team was called. CT scan of the brain was obtained. There is no acute intracranial abnormality. This was interpreted by the radiologist and reviewed by myself. CTA of the head and neck was obtained. There is no acute abnormality noted. There was interpreted by the radiologist and reviewed by myself. CBC and basic metabolic profile within normal limits. High-sensitivity troponin was normal. PT with INR and PTT were within normal limits. Portable 1 view chest x-ray was obtained. On my interpretation, lung monteiro are clear. There is normal cardiac silhouette. Bony thorax is normal. There is no acute process noted. Radiologist also interpreted the x-ray and agrees. EKG was obtained. On my interpretation, it showed a normal sinus rhythm with a rate of 72. IN interval, QRS interval, and QTc intervals were all normal. Wilsey was normal. There are no acute ST or T wave changes. On reevaluation, patient is back to her baseline. Patient was able to ambulate here in the emergency department. NIH stroke scale has improved to 0. It was noted the patient does have a history of complex migraines as well as conversion disorder. It is felt that her symptoms were due to one or both of those. Patient does not need to be admitted to the hospital for this. Patient was instructed to follow-up with her primary care physician in 3 to 5 days. Patient understood and was agreeable with the plan. All questions were answered. Lab Data Attestation: I reviewed the patient's lab results. Labs: Laboratory Results - last 24 hr 03/08/22 03/08/22 03/08/22 15:58 15:58 15:58 WBC 7.1 RBC 4.81 Hgb 14.7 Hct 43.1 MCV 89.6 MCH 30.6 MCHC 34.1 RDW Std Deviation 44.4 H RDW Coeff of Yuly 13.5 Plt Count 329 MPV 9.0 Immature Gran % (Auto) 0.100 Neut % (Auto) 41.6 L Lymph % (Auto) 45.9 H Wilson % (Auto) 5.8 Eos % (Auto) 5.9 H Baso % (Auto) 0.7 Absolute Neuts (auto) 3.0 Absolute Lymphs (auto) 3.27 Nucleated RBC % 0 PT 13.4 INR 1.1 APTT 30.2 Sodium 139 Potassium 4.0 Chloride 110 H Carbon Dioxide 24.0 Anion Gap 5 BUN 10 Creatinine 0.85 Estim Creat Clear Calc 69.87 Est GFR (MDRD) Af Amer 93 Est GFR (MDRD) Non-Af 77 BUN/Creatinine Ratio 11.7 Glucose 91 Calcium 8.9 Troponin I High Sens < 3 L Radiography Diagnostic Testing: Clinical Impression(s) from Imaging Studies Brain CT 03/08/22 15:50 IMPRESSION: Minimal prominence of the temporal horns bilaterally of uncertain significance. Electronically Signed: Jose Angel Alberts MD at 16:27 EDT , ADDENDUM: 03/08/22 1659 IMPRESSION: undefined ADDENDUM: 03/08/22 1718 IMPRESSION: undefined Head/Neck CTA 03/08/22 15:52 IMPRESSION: Minimal soft plaque within the posterior lateral left carotid bulb on series 2 image 199. This produces a mild stenosis (1-39%). Remainder of arterial structures detailed above normal. Mild biapical fibrosis. Subpathologic left jugulodigastric lymph node likely benign reactive lymph node. Additional smaller bilateral subpathologic jugulodigastric lymph nodes also likely benign. Moderate opacification left mastoid air cells. Electronically Signed: Jose Angel Alberts MD at 17:42 EDT , ADDENDUM: 03/08/22 1755 IMPRESSION: undefined ADDENDUM: 03/08/22 1806 IMPRESSION: undefined Chest X-Ray 03/08/22 17:05 IMPRESSION: Normal x-ray examination of the chest. Electronically Signed: Jose Angel Alberts MD at 17:49 EDT , EKG Initial EKG: Attestation: I personally reviewed and interpreted this EKG as follows: Interpretation: Sinus Rhythm (72) and No Acute Injury Pattern Stroke Documentation Questions Stroke Team Activated: Yes Reviewed Inclusion/Exclusion criteria: Yes Was Patient considered for Endovascular Intervention?: No-CTA negative, determined not to be an endovascular candidate IV Alteplase (t-PA) Administered: No Discharge Plan Triage Chief Complaint: Neuro S/Sx ED Provider: Stew Chandler Dx/Rx/DC Orders Clinical Impression: Migraine, Expressive aphasia Instructions: ED Headache Unspecified, ED TIA: Transient Ischemic Attack Prescriptions: No Action calcium carbonate [Calcium 500] 500 mg calcium (1,250 mg) tablet,chewable 500 mg PO DAILY RF: 0 diphenhydramine HCl [Benadryl] 25 mg capsule 25 mg PO TID PRNRF: 0 ascorbate calcium (vitamin C) 500 mg tablet 500 mg PO .every other day RF: 0 vitamin E (dl, acetate) 45 mg (100 unit) capsule 45 mg PO DAILY RF: 0 melatonin 5 mg capsule 5 mg PO DAILY RF: 0 turmeric root extract 1,053 mg tablet 1,076 mg PO DAILY RF: 0 multivitamin [Multiple Vitamins] Tablet 1 tab PO DAILY RF: 0 Ajovi IM PRN (Reason: migraine) RF: 0 promethazine 12.5 mg tablet 12.5 mg PO TID RF: 0 gabapentin 300 MG capsule 300 mg PO TID RF: 0 cholecalciferol (vitamin D3) 5,000 UNIT tablet,disintegrating 10,000 unit PO DAILY RF: 0 vitamin B complex 1 EACH tablet 1 ea PO DAILY RF: 0 prazosin 2 MG capsule 2 mg PO QHS RF: 0 tizanidine 4 MG capsule 4 mg PO QHS RF: 0 lorazepam 0.5 mg tablet 0.5 mg PO DAILY PRN (Reason: Anxiety) RF: 0 Primary Care Provider: Iva Gamble NP Referrals: Iva Gamble [facility], [facility] [Primary Care Provider] - 3-5 Days Tej Whitehead NP, [facility] [NON-STAFF] - 3-5 Days Disposition Disposition: Home, Self Care Discharge Date/Time: 03/08/22 19:29
[2022-03-10 07:21] LABS: Bedside Glucose 102 mg/dL (74-106)
== END 2022-03-08 19:29 | disposition home or self-care (01) ==
PROVIDERS: Emergency Provider Emergency Medicine; PCP Nurse Practitioner; Visit Provider Emergency Medicine
DX: G43.909 Migraine, unspecified, not intractable, without status migrainosus (principal); J43.9 Emphysema, unspecified; R47.01 Aphasia; J45.909 Unspecified asthma, uncomplicated; M79.7 Fibromyalgia; K58.9 Irritable bowel syndrome, unspecified; F17.210 Nicotine dependence, cigarettes, uncomplicated; Z79.899 Other long term (current) drug therapy
CPT/HCPCS: 70450; 70496; 70498; 71045; 80048; 82962; 84484; 85025; 85610; 85730; 93005; 99283; Q9967; A4216

== ENCOUNTER → 2022-03-11 | Outpatient (CLI) | payer MEDICARE, MEDICAID, SELFPAY ==
[2022-03-11 12:36] LABS: Hemoglobin 14.2 g/dL (12.0-15.0); Mean Corp Hgb Conc 33.8 g/dL (32-36); Mean Corpuscular Hgb 30.7 pg (27.0-32.0); Mean Corpuscular Volume 90.7 fL (81-99); Mean Platelet Vol. 9.6 fl (6.2-12.0); Platelet Count 306 K/mm3 (150-450); RBC Distribution Width CV 13.6 % (11.6-14.6); RBC Distribution Width SD 45.1 fl (35.1-43.9); RET-HE 34.6 pg (30-35); Red Blood Count 4.63 M/mm3 (4.2-5.4); Reticulocyte Count 0.95 % (0.5-1.5); White Blood Count 5.7 K/mm3 (4.4-11.0)
[2022-03-11 12:50] LABS: Erythrocyte Sedimentation Rate 16 mm/hr (0-30)
[2022-03-11 13:09] LABS: Vitamin D,25 Hydroxy 59.5 ng/mL
[2022-03-11 13:17] LABS: PTHIN 35.3 pg/mL (18.4-80.1)
[2022-03-11 13:18] LABS: ALB/GLOB Ratio 1.1 RATIO (0.9-2.4); AST(SGOT) 11 U/L (15-37); Alanine Aminotransfer ALT/SGPT 15 U/L (13-56); Albumin, Serum 3.6 g/dL (3.2-5.0); Alkaline Phosphatase 68 U/L (45-117); Anion Gap 7 (5-15); BUN 9 mg/dL (7-18); BUN/Creat Ratio 12.8 RATIO (10-20); CRP < 2.90 mg/L (0.0-3.0); Calcium,Total 8.8 mg/dL (8.5-10.1); Chloride 110 mmol/L (98-107); EST Glomerular Filtration Rate 96 mL/min (>60); Est Glom Filt Rate - Afr Amer 116 mL/min (>60); Globulin 3.4 g/dL (2.2-4.2); Glucose 93 mg/dL (74-106); Iron 119 ug/dL (50-170); Iron Binding Capacity,Total 369 ug/dL (250-450); Magnesium 2.1 mg/dL (1.6-2.6); Phosphorus 2.4 mg/dL (2.5-4.9); Potassium 3.9 mmol/L (3.5-5.1); Rheumatoid Factor < 10.0 IU/mL (<15); Sodium Level 138 mmol/L (136-145); T4 Free Direct 1.06 ng/dL (0.76-1.46); Thyroid Stim Hormone (TSH) 1.56 uIU/mL (0.358-3.74)
[2022-03-14 08:29] LABS: Alpha Antitrypsin Serum 144 mg/dL (101-187)
[2022-03-19 17:07] LABS: Aldosterone, Serum 10.3 ng/dL (0.0-30.0); Endomysial Antibody IgA Negative (Negative); Immunoglobulin A 237 mg/dL (87-352); Thyroid Peroxidase AB < 8 IU/mL (0-34)
[2022-03-19 20:43] LABS: Adrenocorticotropic Hormone 9.1 pg/mL (7.2-63.3); Thyroglobulin Antibody < 1.0 IU/mL (0.0-0.9); t-Transglutaminase IgA <2 U/mL (0-3)
== END | disposition home or self-care (01) ==
LOC: MTLAB 09:31
PROVIDERS: PCP Nurse Practitioner Family; Referring Provider Nurse Practitioner Family; Visit Provider Nurse Practitioner Family
DX: E78.5 Hyperlipidemia, unspecified (principal); J43.9 Emphysema, unspecified; F31.75 Bipolar disorder, in partial remission, most recent episode depressed; F60.3 Borderline personality disorder; F41.9 Anxiety disorder, unspecified
CPT/HCPCS: 82104; 36415; 80053; 82024; 82088; 82103; 82306; 82533; 82784; 83516; 83540; 83550; 83735; 83970; 84100; 84439; 84443; 85027; 85045; 85652; 86140; 86255; 86376; 86431; 86800

== ENCOUNTER → 2022-04-02 | Outpatient (CLI) | payer MEDICARE, MEDICAID, SELFPAY ==
[2022-04-05 20:11] LABS: ANTINUCLEAR ANTIBODIES DIRECT Negative (Negative)
[2022-04-24 16:09] LABS: Lyme IgG P18 Ab Absent (.); Lyme IgG P23 Ab Absent (.); Lyme IgG P28 Ab Absent (.); Lyme IgG P30 Ab Absent (.); Lyme IgG P39 Ab Absent (.); Lyme IgG P41 Ab Absent (.); Lyme IgG P45 Ab Absent (.); Lyme IgG P58 Ab Absent (.); Lyme IgG P66 Ab Absent (.); Lyme IgG P93 Ab Absent (.); Lyme IgM P23 Ab Absent (.); Lyme IgM P39 Ab Absent (.); Lyme IgM P41 Ab Present (.)
[2022-04-24 18:26] LABS: ASO Titer 118.7 IU/mL (0.0-200.0); Lyme IgG WB Interpretation Negative (.); Lyme IgM WB Interpretation Negative (.)
== END | disposition home or self-care (01) ==
LOC: LABSPEC 13:30
PROVIDERS: PCP Nurse Practitioner Family; Visit Provider Nurse Practitioner Family
DX: F44.4 Conversion disorder with motor symptom or deficit (principal); M79.7 Fibromyalgia; I69.390 Apraxia following cerebral infarction
CPT/HCPCS: 86038; 86060; 86617

== ENCOUNTER → 2022-05-23 | Outpatient (CLI) | payer MEDICARE, MEDICAID, SELFPAY ==
--- NOTE | 2022-05-23 15:42 | RAD_ITS ---
EXAM: XR RIGHT ELBOW COMPLETE, 3 OR MORE VIEWS CLINICAL INDICATION: PAIN IN ELBOW TECHNIQUE: Frontal, lateral and oblique views of the right elbow. This report was created using [email or web address] report generation technology. COMPARISON: None. FINDINGS: BONES/JOINTS: Unremarkable. There is no displacement of the anterior or posterior fat pads. No acute fracture. No subluxation. Normal alignment. Preservation of the joint space. No destructive or sclerotic lesions. SOFT TISSUES: Unremarkable. No soft tissue swelling or gas. No radiopaque foreign body. RAD/Elbow min 3 Views IMPRESSION: Negative right elbow. Electronically Signed: Terrell Mckay MD at 17:55 EDT ,
== END | disposition home or self-care (01) ==
LOC: MTRAD 15:39
PROVIDERS: PCP Nurse Practitioner Family; Referring Provider Nurse Practitioner Family; Visit Provider Nurse Practitioner Family
DX: M25.521 Pain in right elbow (principal)
CPT/HCPCS: 73080

== ENCOUNTER → 2022-08-15 | Outpatient (CLI) | payer MEDICARE, MEDICAID, SELFPAY ==
[2022-08-15 17:16] LABS: Hematocrit 45.1 % (37-47); Hemoglobin 15.2 g/dL (12.0-15.0); Mean Corp Hgb Conc 33.7 g/dL (32-36); Mean Corpuscular Volume 91.9 fL (81-99); Mean Platelet Vol. 9.2 fl (6.2-12.0); Platelet Count 353 K/mm3 (150-450); RBC Distribution Width CV 13.4 % (11.6-14.6); RBC Distribution Width SD 45.7 fl (35.1-43.9); Red Blood Count 4.91 M/mm3 (4.2-5.4); White Blood Count 7.8 K/mm3 (4.4-11.0)
[2022-08-15 17:24] LABS: Erythrocyte Sedimentation Rate 12 mm/hr (0-30)
[2022-08-15 18:01] LABS: Internal QC Validated? YES +Cl - CLEAR BKGD; Monotest Negative (Negative)
[2022-08-15 18:09] LABS: ALB/GLOB Ratio 1.1 RATIO (0.9-2.4); AST(SGOT) 9 U/L (15-37); Alanine Aminotransfer ALT/SGPT 18 U/L (13-56); Alkaline Phosphatase 77 U/L (45-117); Anion Gap 5 (5-15); BUN 7 mg/dL (7-18); BUN/Creat Ratio 10.2 RATIO (10-20); CRP < 2.90 mg/L (0.0-3.0); Calcium,Total 9.3 mg/dL (8.5-10.1); Chloride 107 mmol/L (98-107); Creatinine, Serum 0.69 mg/dL (0.55-1.02); EST Glomerular Filtration Rate 98 mL/min (>60); Est Glom Filt Rate - Afr Amer 119 mL/min (>60); Globulin 3.5 g/dL (2.2-4.2); Glucose 88 mg/dL (74-106); Potassium 3.7 mmol/L (3.5-5.1); Protein, Total 7.5 g/dL (6.4-8.2); Sodium Level 137 mmol/L (136-145)
== END | disposition home or self-care (01) ==
LOC: LAB 16:08
PROVIDERS: PCP Nurse Practitioner Family; Referring Provider Nurse Practitioner Family; Visit Provider Nurse Practitioner Family
DX: R68.89 Other general symptoms and signs (principal); R05.3 Chronic cough; R53.82 Chronic fatigue, unspecified
CPT/HCPCS: 36415; 80053; 85027; 85652; 86140; 86308; 86664; 86665

== ENCOUNTER 2022-08-18 11:38 | Emergency (ER) | payer MEDICARE, MEDICAID, SELFPAY ==
[2022-08-18 11:39] VITALS: BP 118/67; PULSE 105; RESP 16; TEMP 37; O2SAT 100; BMI 21.6
--- NOTE | 2022-08-18 12:50 | ED.VIS.GI ---
HPI HPI - GI History of Present Illness Chief Complaint: Abd Pain Informant: patient Narrative Narrative: Increasing left upper quadrant abdominal pain for the past week. Been fatigued for 3 weeks history of mono as a child saw PCP office a week ago. Outpatient ultrasound pending. Labs were normal. Chronic diarrhea due to irritable bowel syndrome. Nausea without vomiting took Phenergan with no improvement. Cholecystectomy 10 years ago. Denies other abdominal surgeries. Allergies to IV dye however is tolerated CT scan with dye with pretreatment the past. Prior similar symptoms: Yes PFSH PFSH Medical History Anxiety and depression Asthma Conversion disorder Emphysema/COPD Fibromyalgia History of pseudoseizure Irritable bowel syndrome Migraines Tobacco use Home Medications cholecalciferol (vitamin D3) 125 mcg (5,000 unit) disintegrating tablet 10,000 unit PO DAILY supplement 12/27/19 [History Last Taken 12/26/19] gabapentin 300 mg capsule 300 mg PO TID fibromyalgia/migraines 12/27/19 [History Last Taken 12/26/19 22:00] vitamin B complex 1 ea PO DAILY supplement 12/27/19 [History Last Taken 12/26/19] prazosin 2 mg capsule 2 mg PO QHS 09/20/20 [History Last Taken Unknown] tizanidine 4 mg capsule 4 mg PO QHS 09/20/20 [History Last Taken Unknown] lorazepam 0.5 mg tablet 0.5 mg PO DAILY PRN Anxiety 04/27/21 [History Last Taken Unknown] Ajovi IM PRN migraine 07/01/21 [History Last Taken Unknown] ascorbate calcium (vitamin C) 500 mg tablet 500 mg PO .every other day 07/01/21 [History Last Taken Unknown] calcium carbonate 500 mg calcium (1,250 mg) chewable tablet (Calcium 500) 500 mg PO DAILY 07/01/21 [History Last Taken Unknown] diphenhydramine HCl 25 mg capsule (Benadryl) 25 mg PO TID PRN 07/01/21 [History Last Taken Unknown] melatonin 5 mg capsule 5 mg PO DAILY 07/01/21 [History Last Taken Unknown] multivitamin (Multiple Vitamins tablet) 1 tab PO DAILY 07/01/21 [History Last Taken Unknown] promethazine 12.5 mg tablet 12.5 mg PO TID 07/01/21 [History Last Taken Unknown] turmeric root extract 1,053 mg tablet 1,076 mg PO DAILY 07/01/21 [History Last Taken Unknown] vitamin E (dl, acetate) 45 mg (100 unit) capsule 45 mg PO DAILY 07/01/21 [History Last Taken Unknown] albuterol sulfate 90 mcg/actuation aerosol inhaler 2 puff inhalation Q6H PRN 08/12/22 [History Last Taken Unknown] atorvastatin 10 mg tablet 10 mg PO DAILY 08/12/22 [History Last Taken Unknown] doxycycline hyclate 100 mg capsule 100 mg PO BID 08/12/22 [History Last Taken Unknown] levocetirizine 5 mg tablet (Allergy Relief (levocetirizine)) 5 mg PO QPM PRN 08/12/22 [History Last Taken Unknown] loperamide 2 mg capsule 2 mg PO Q6H PRN 08/12/22 [History Last Taken Unknown] triamcinolone acetonide 55 mcg nasal spray aerosol 2 spray intranasal DAILY 08/12/22 [History Last Taken Unknown] cefdinir 300 mg capsule 300 mg PO BID #19 caps 08/18/22 [Rx Last Taken Unknown] metronidazole 500 mg tablet 500 mg PO TID #29 tabs 08/18/22 [Rx Last Taken Unknown] oxycodone-acetaminophen 5 mg-325 mg tablet (Percocet) 1 tab PO Q6H PRN pain 3 days #12 tabs 08/18/22 [Rx Last Taken Unknown] Allergy/AdvReac Type Severity Reaction Status Date / Time bee pollen Allergy Severe Anaphylaxis Verified 08/18/22 11:39 coconut Allergy Intermediate Eye Verified 08/18/22 11:39 swelling, Rash egg Allergy Mild Rash, GI Verified 08/18/22 11:39 cramping aspirin Allergy Shortness Verified 08/18/22 11:39 of breath bupropion HCl Allergy Other Verified 08/18/22 11:39 [From Wellbutrin] divalproex sodium Allergy Rash Verified 08/18/22 11:39 [From Depakote] doxycycline Allergy Rash Verified 08/18/22 11:39 Gadolinium-MRI Contrast Allergy Hives Verified 08/18/22 11:39 Medium [Gadolinium-Contrast Medium - MRI] lamotrigine [From Lamictal] Allergy Rash Verified 08/18/22 11:39 latex Allergy Hives Verified 08/18/22 11:39 phenytoin sodium Allergy Hives Verified 08/18/22 11:39 [From Dilantin] phenytoin sodium extended Allergy Hives Verified 08/18/22 11:39 [From Dilantin] pineapple Allergy Swelling, Verified 08/18/22 11:39 Rash erythromycin base AdvReac Nausea/Vom/ Verified 08/18/22 11:39 Diarrhea quetiapine fumarate AdvReac Other Verified 08/18/22 11:39 [From Seroquel] Sulfa (Sulfonamide AdvReac Vomiting Verified 08/18/22 11:39 Antibiotics) varenicline tartrate AdvReac Vomiting Verified 08/18/22 11:39 [From Chantix] Family History Mother Diabetes Heart disease Hypertension HLD (hyperlipidemia) Father Diabetes Heart disease Hypertension HLD (hyperlipidemia) Surgical History H/O section H/O knee surgery History of cholecystectomy History of dilation and curettage S/P partial hysterectomy Social History adopted: Yes household members: none housing: house current occupational status: disabled Smoking Status: Current every day smoker tobacco type: cigarettes alcohol intake: never substance use type: marijuana what type of physical activity do you participate in: other details: home exercises, fishing do you feel safe at home: Yes ROS ROS ED Constitutional Constitutional ED: Denies chills, fever(s) or sweats Eyes Eyes: Denies change in vision ENT ENT ED: Denies dysphagia or sore throat Cardiovascular Cardiovascular: Denies chest pain, leg edema, palpitations or racing heartbeat Respiratory/Chest Respiratory/Chest: Denies cough, dyspnea or dyspnea on exertion Gastrointestinal Gastrointestinal: Reports abdominal pain and nausea; Denies diarrhea or vomiting Genitourinary Genitourinary ED: Denies dysuria, hematuria or urinary frequency Musculoskeletal Musculoskeletal: Denies back pain, extremity pain or neck pain Integumentary Denies rash or wounds Neurologic Neurologic: Denies headache(s), paresthesias or weakness EXAM Physical Exam Const Vital Signs: 08/18/22 11:39 08/18/22 15:40 Temperature 98.6 F Temperature Source Temporal Pulse Rate 105 H 88 Respiratory Rate 16 18 Blood Pressure 118/67 Blood Pressure Mean 84 Pulse Ox 100 99 Oxygen Delivery Method Room Air Room Air Positive well nourished and well developed Constitutional Narrative: Uncomfortable, nontoxic General Appearance ED: well developed HEENT Reports moist mucous membranes normocephalic and atraumatic Eyes PERRL, EOMs intact bilaterally and conjunctivae normal General Eye ED: Yes normal appearance of both eyes Neck no lymphadenopathy and supple General: Negative for tenderness Chest Wall Chest: Negative for tenderness Resp normal respiratory effort and normal air movement Effort and Inspection: symmetric chest movement; Negative for respiratory distress Cardio regular rate, regular rhythm and no murmurs Peripheral Pulses: pulses 2+ throughout GI normal to inspection, nondistended, normoactive bowel sounds GI Narrative: LUQ TTP Palpation: Negative for guarding or rebound tenderness present Back/Spine no CVA tenderness and no thoracic nor lumbar tenderness Extremity normal to inspection General Extremety ED: Negative for edema or tenderness General Extremity: Negative for edema Neuro oriented x3 and no sensory deficits noted Sensorium / Orientation: awake and alert Skin no rashes or lesions noted and no wounds MDM MDM MDM Narrative Medical decision making narrative: Patient tender palpation left upper quadrant. IV established, Zofran morphine was given. Abdominal labs are all normal. She was pretreated for IV dye allergy with Benadryl and Solu-Medrol. IV contrast CT obtained noting no signs of splenomegaly incidental splenic cysts of 5 mm. However did note mild pancolitis. White count normal at 7.4 patient diverticulitis back in 2011. She reports she is supposed see [facility] however appointment is not till October this is 2 months away. Discussed with patient we will start antibiotics of cefdinir and Flagyl she does not drink alcohol. 10-day course. Return precaution discussed. Discussed calling GI office because her findings, she will need colonoscopy in the future. Prescription for oxycodone for which he is tolerated in the past. All questions were answered. Lab Data Attestation: I reviewed the patient's lab results. Labs: Laboratory Results - last 24 hr 08/18/22 08/18/22 08/18/22 13:05 13:05 13:05 WBC 7.4 RBC 4.75 Hgb 14.9 Hct 44.0 MCV 92.6 MCH 31.4 MCHC 33.9 RDW Std Deviation 45.8 H RDW Coeff of Yuly 13.3 Plt Count 340 MPV 8.4 Immature Gran % (Auto) 0.100 Neut % (Auto) 54.1 Lymph % (Auto) 36.4 [place] % (Auto) 5.3 Eos % (Auto) 3.4 Baso % (Auto) 0.7 Absolute Neuts (auto) 4.0 Absolute Lymphs (auto) 2.70 Nucleated RBC % 0 Sodium 141 Potassium 3.9 Chloride 108 H Carbon Dioxide 25.0 Anion Gap 8 BUN 6 L Creatinine 0.72 Estim Creat Clear Calc 81.62 Est GFR (MDRD) Af Amer 113 Est GFR (MDRD) Non-Af 93 BUN/Creatinine Ratio 8.4 L Glucose 89 Calcium 9.3 Total Bilirubin 0.50 AST 16 ALT 17 Alkaline Phosphatase 77 Total Protein 7.2 Albumin 3.7 Globulin 3.5 Albumin/Globulin Ratio 1.1 Lipase 77 Serum , Qual NEGATIVE Radiography Diagnostic Testing: Clinical Impression(s) from Imaging Studies Abdomen/Pelvis CT 08/18/22 14:22 IMPRESSION: Findings suggestive of a mild degree of galeana colitis. Electronically Signed: Percy Mathews MD at 14:50 EDT , Discharge Plan Triage Chief Complaint: Abd Pain ED Provider: Dontrell Verduzco Dx/Rx/DC Orders Clinical Impression: Colitis, Abdominal pain, Diarrhea, History of IBS Instructions: Abdominal Pain, ED Understanding Colitis, ED Diarrhea, Unknown Cause Prescriptions: New metronidazole 500 mg tablet 500 mg PO TID Qty: 29 0RF oxycodone-acetaminophen [Percocet] 5-325 mg tablet 1 tab PO Q6H PRN (Reason: pain) 3 Days Qty: 12 0RF cefdinir 300 mg capsule 300 mg PO BID Qty: 19 0RF No Action calcium carbonate [Calcium 500] 500 mg calcium (1,250 mg) tablet,chewable 500 mg PO DAILY diphenhydramine HCl [Benadryl] 25 mg capsule 25 mg PO TID PRN ascorbate calcium (vitamin C) 500 mg tablet 500 mg PO .every other day vitamin E (dl, acetate) 45 mg (100 unit) capsule 45 mg PO DAILY melatonin 5 mg capsule 5 mg PO DAILY turmeric root extract 1,053 mg tablet 1,076 mg PO DAILY multivitamin [Multiple Vitamins] Tablet 1 tab PO DAILY Ajovi IM PRN (Reason: migraine) promethazine 12.5 mg tablet 12.5 mg PO TID doxycycline hyclate 100 mg capsule 100 mg PO BID levocetirizine [Allergy Relief (levocetirizin)] 5 mg tablet 5 mg PO QPM PRN loperamide 2 mg capsule 2 mg PO Q6H PRN triamcinolone acetonide 55 mcg aerosol,spray 2 spray intranasal DAILY Rx Instructions: administer into each nostril albuterol sulfate 90 mcg/actuation HFA aerosol inhaler 2 puff inhalation Q6H PRN atorvastatin 10 mg tablet 10 mg PO DAILY gabapentin 300 MG capsule 300 mg PO TID cholecalciferol (vitamin D3) 5,000 UNIT tablet,disintegrating 10,000 unit PO DAILY vitamin B complex 1 EACH tablet 1 ea PO DAILY prazosin 2 MG capsule 2 mg PO QHS tizanidine 4 MG capsule 4 mg PO QHS lorazepam 0.5 mg tablet 0.5 mg PO DAILY PRN (Reason: Anxiety) Label Comments: TAKE 1 TABLET BY MOUTH EVERY DAY NEEDED Primary Care Provider: Tej Whitehead NP Referrals: Anoop Andrade DO [Med Staff - Active Staff] - 1-2 Weeks Tej Whitehead NP, [employer] [Primary Care Provider] - 3-5 Days Activity Restrictions/Additional Instructions: Normal spleen on CT. Mild pancolitis. Labs are stable. White count normal. Take antibiotic as prescribed. Follow-up with GI as an outpatient. Follow-up with your doctor for reevaluation. Return if any worsening symptoms. Disposition Disposition: Home, Self Care Discharge Date/Time: 08/18/22 15:41
[2022-08-18] MEDS: MethylPREDNISolone 125 MG/2 ML Vial IV (12:58)
[2022-08-18] MEDS: Morphine 4 MG/ML Syringe IV (12:58)
[2022-08-18] MEDS: Ondansetron 4 MG/2 ML Vial IV (12:58)
[2022-08-18 13:12] LABS: Basophil# 0.05 X10^3/uL; Basophil% 0.7 % (0-1); Eosinophil# 0.25 X10^3/uL; Eosinophils% 3.4 % (0-5); Hemoglobin 14.9 g/dL (12.0-15.0); Lymphocyte % 36.4 % (19-41); Mean Corp Hgb Conc 33.9 g/dL (32-36); Mean Corpuscular Hgb 31.4 pg (27.0-32.0); Mean Corpuscular Volume 92.6 fL (81-99); Mean Platelet Vol. 8.4 fl (6.2-12.0); Monocyte# 0.39 X10^3/uL; Monocyte% 5.3 % (0-10); NRBC Flagged by Analyzer 0 % (0-5); Neutrophil # 4.02 X10^3/uL (2.7-7.7); Neutrophil % 54.1 % (47-70); Platelet Count 340 K/mm3 (150-450); RBC Distribution Width CV 13.3 % (11.6-14.6); RBC Distribution Width SD 45.8 fl (35.1-43.9); Red Blood Count 4.75 M/mm3 (4.2-5.4); White Blood Count 7.4 K/mm3 (4.4-11.0)
[2022-08-18] MEDS: 0.9% Normal Saline 1,000 ML 125 ML IV (13:24)
[2022-08-18] MEDS: DiphenhydrAMINE 50 MG/ML Syringe IV (13:24)
[2022-08-18 13:28] LABS: ALB/GLOB Ratio 1.1 RATIO (0.9-2.4); AST(SGOT) 16 U/L (15-37); Alanine Aminotransfer ALT/SGPT 17 U/L (13-56); Albumin, Serum 3.7 g/dL (3.2-5.0); Alkaline Phosphatase 77 U/L (45-117); Anion Gap 8 (5-15); BUN 6 mg/dL (7-18); BUN/Creat Ratio 8.4 RATIO (10-20); Calcium,Total 9.3 mg/dL (8.5-10.1); Chloride 108 mmol/L (98-107); Creatinine, Serum 0.72 mg/dL (0.55-1.02); EST Glomerular Filtration Rate 93 mL/min (>60); Est Glom Filt Rate - Afr Amer 113 mL/min (>60); Estimated Creatinine Clearance 81.62 ml/min; Globulin 3.5 g/dL (2.2-4.2); Glucose 89 mg/dL (74-106); Lipase 77 U/L (73-393); Potassium 3.9 mmol/L (3.5-5.1); Protein, Total 7.2 g/dL (6.4-8.2); Sodium Level 141 mmol/L (136-145)
[2022-08-18 13:48] LABS: Internal QC Validated? YES +Cl - CLEAR BKGD; Pregnancy, Serum, hCG Quali. NEGATIVE Negative
--- NOTE | 2022-08-18 14:22 | CT_ITS ---
STUDY: CT ABDOMEN AND PELVIS WITH CONTRAST REASON FOR EXAM: Female, 47 years old. Abd pain -- LUQ pain, thee dye w/ pretreatment in past RADIATION DOSAGE (If Supplied By Facility): CTDIvol = ( 8.42 ) mGy, DLP = ( 434.99 ) mGycm TECHNIQUE: Transaxial images were obtained from the dome of the diaphragm to the symphysis pubis without oral contrast. IV 100mL Isovue-300 was administered. Sagittal and coronal images were reconstructed. Individualized dose optimization techniques were used for this CT. COMPARISON: Comparison is made with prior study 01/06/2016. FINDINGS: The visualized lung bases are unremarkable. The visualized portions of the heart are within normal limits. Mild dilatation of the central intrahepatic biliary ducts. There are surgical clips in the gallbladder fossa consistent with a prior cholecystectomy. The common bile duct measures 5.5 mm in transverse dimension. 5.5 mm cyst in the posterior medial aspect of the spleen. Normal pancreas. Normal bilateral adrenal glands. Normal right kidney. Normal left kidney. Normal visualized stomach. Normal small intestine. Findings suggestive of a mild degree of galeana colitis. There is non-visualization of the appendix. Normal abdominal aorta. Normal inferior vena cava. Normal retroperitoneum. Normal urinary bladder. There is absence of the uterus consistent with a prior hysterectomy. Normal abdominal wall. Normal osseous structures. CT/Abdomen/Pelvis W IV Cont ONLY IMPRESSION: Findings suggestive of a mild degree of galeana colitis. Electronically Signed: Percy Mathews MD at 14:50 EDT ,
[2022-08-18] MEDS: oxyCODONE 5 MG Tablet PO (15:36)
[2022-08-18] MEDS: metroNIDAZOLE 500 MG Tablet PO (15:36)
[2022-08-18] MEDS: Cefdinir 300 MG Capsule PO (15:36)
[2022-08-18 15:40] VITALS: PULSE 88; RESP 18; O2SAT 99
== END 2022-08-18 15:41 | disposition home or self-care (01) ==
PROVIDERS: Emergency Provider Emergency Medicine; PCP Nurse Practitioner Family; Visit Provider Emergency Medicine
DX: K52.9 Noninfective gastroenteritis and colitis, unspecified (principal); R10.12 Left upper quadrant pain; F12.90 Cannabis use, unspecified, uncomplicated; F17.210 Nicotine dependence, cigarettes, uncomplicated
CPT/HCPCS: 74177; 80053; 83690; 84703; 85025; 96374; 96375; 99284; J7030; Q9967; A4216; J2405

== ENCOUNTER → 2022-08-19 | Outpatient (CLI) | payer MEDICARE, MEDICAID, SELFPAY | END | disposition home or self-care (01) | LOC: PSN 12:24 | PROVIDERS: PCP Nurse Practitioner Family; Referring Provider Nurse Practitioner Family; Visit Provider Nurse Practitioner Family | DX: R05.3 Chronic cough (principal); R53.82 Chronic fatigue, unspecified; R68.89 Other general symptoms and signs | CPT/HCPCS: C9803 ==

== ENCOUNTER → 2022-08-25 | Outpatient (CLI) | payer MEDICARE, MEDICAID, SELFPAY ==
[2022-08-25 16:08] LABS: Absolute Lymphocyte Count 3.76 X10^3/uL (0.83-4.51); Absolute Neutrophil Count 3.5 X10^3/uL (2.0-7.7); Basophil# 0.07 X10^3/uL; Basophil% 0.8 % (0-1); Eosinophil# 0.36 X10^3/uL; Eosinophils% 4.3 % (0-5); Hemoglobin 15.7 g/dL (12.0-15.0); Lymphocyte # 3.76 X10^3/ul (0.83-4.51); Lymphocyte % 45.2 % (19-41); Mean Corp Hgb Conc 34.1 g/dL (32-36); Mean Corpuscular Hgb 31.6 pg (27.0-32.0); Mean Corpuscular Volume 92.6 fL (81-99); Mean Platelet Vol. 8.7 fl (6.2-12.0); Monocyte# 0.59 X10^3/uL; Monocyte% 7.1 % (0-10); NRBC Flagged by Analyzer 0 % (0-5); Neutrophil # 3.52 X10^3/uL (2.7-7.7); Neutrophil % 42.4 % (47-70); Platelet Count 352 K/mm3 (150-450); RBC Distribution Width CV 13.5 % (11.6-14.6); RBC Distribution Width SD 46.2 fl (35.1-43.9); Red Blood Count 4.97 M/mm3 (4.2-5.4); White Blood Count 8.3 K/mm3 (4.4-11.0)
[2022-08-25 16:10] LABS: Erythrocyte Sedimentation Rate 11 mm/hr (0-30)
[2022-08-25 16:58] LABS: ALB/GLOB Ratio 1.1 RATIO (0.9-2.4); AST(SGOT) 15 U/L (15-37); Alanine Aminotransfer ALT/SGPT 26 U/L (13-56); Albumin, Serum 3.7 g/dL (3.2-5.0); Alkaline Phosphatase 80 U/L (45-117); Anion Gap 5 (5-15); BUN 8 mg/dL (7-18); BUN/Creat Ratio 12.2 RATIO (10-20); CRP < 2.90 mg/L (0.0-3.0); Calcium,Total 9.1 mg/dL (8.5-10.1); Chloride 108 mmol/L (98-107); Creatinine, Serum 0.66 mg/dL (0.55-1.02); EST Glomerular Filtration Rate 103 mL/min (>60); Est Glom Filt Rate - Afr Amer 125 mL/min (>60); Globulin 3.5 g/dL (2.2-4.2); Glucose 84 mg/dL (74-106); LDH 112 U/L (84-246); Potassium 3.9 mmol/L (3.5-5.1); Protein, Total 7.2 g/dL (6.4-8.2); Sodium Level 140 mmol/L (136-145)
[2022-08-27 13:08] LABS: Anti-Centromere B Ab <0.2 AI (0.0-0.9); Anti-Chromatin <0.2 AI (0.0-0.9); Anti-Jo <0.2 AI (0.0-0.9); Anti-Scleroderma-70 AB <0.2 AI (0.0-0.9); RNP Ab <0.2 AI (0.0-0.9); SJOGREN'S Anti-SS-A test < 0.2 AI (0.0-0.9); SJOGREN'S Anti-SS-B test < 0.2 AI (0.0-0.9); Smith Ab <0.2 AI (0.0-0.9)
[2022-08-27 16:09] LABS: Endomysial Antibody IgA Negative (Negative)
[2022-08-27 16:42] LABS: Anti-dsDNA Ab 1 IU/mL (0-9)
[2022-08-29 14:36] LABS: Immunoglobulin A 241 mg/dL (87-352); t-Transglutaminase IgA <2 U/mL (0-3)
[2022-09-02 22:07] LABS: Alpha-1-Globulins 0.2 g/dL (0.0-0.4); Alpha-2-Globulins 0.6 g/dL (0.4-1.0); Cytoplasmic Ab (C-ANCA) <1:20 titer (Neg:<1:20); Gamma Globulin 0.9 g/dL (0.4-1.8); Immunoglobulin A 241 mg/dL (87-352); Immunoglobulin E 109 IU/mL (6-495); Immunoglobulin G 936 mg/dL (586-1602); Immunoglobulin M 129 mg/dL (26-217); PROEL- TOTAL PROTEIN 6.6 g/dL (6.0-8.5)
[2022-09-02 22:20] LABS: Perinuclear Ab (P-ANCA) <1:20 titer (Neg:<1:20)
== END | disposition home or self-care (01) ==
PROVIDERS: PCP Nurse Practitioner Family; Visit Provider Nurse Practitioner Adult Health
DX: R19.7 Diarrhea, unspecified (principal); R10.9 Unspecified abdominal pain
CPT/HCPCS: 36415; 80053; 82784; 82785; 83516; 83615; 84165; 85025; 85652; 86140; 86225; 86235; 86255; 86256; 86334

== ENCOUNTER → 2022-08-27 | Outpatient (CLI) | payer MEDICARE, MEDICAID, SELFPAY ==
[2022-09-01 09:46] LABS: Calprotectin, Stool <16 ug/g (0-120)
== END | disposition home or self-care (01) ==
LOC: LABSPEC 15:13
PROVIDERS: PCP Nurse Practitioner Family; Visit Provider Nurse Practitioner Adult Health
DX: R19.7 Diarrhea, unspecified (principal); R10.9 Unspecified abdominal pain
CPT/HCPCS: 83630; 83993

== ENCOUNTER 2022-10-21 12:40 | Day surgery (SDC) | payer MEDICARE, MEDICAID, SELFPAY ==
[2022-10-21] VITALS (7 sets, daily range): BP systolic 89–107; BP diastolic 61–75; PULSE 76–95; RESP 16–18; TEMP 36.4–37.1; O2SAT 98–100; BMI 21.2
--- NOTE | 2022-10-21 12:51 | HP.PCM_ITS ---
History and Physical Date of Admission: 10/21/22 AYAKA BRANTLEY, is a 47 F who presents to the office today to establish with GI for upper abdominal pain and pressure which radiates through to the back, as well as diarrhea. Diarrhea began 2 months ago, taking Imodium which slows down the diarrhea but doesn't resolve it. Pain began at least 2 wks ago, went to [facility] ED on 08/18/22. Different from her IBS which began in high school, she treats it with IBGard, doesn't tolerate fruits and vegetables. She also c/o fatigue, needing more sleep. She reports that she has lost 20 lbs in the past month. Diagnosed 08/18/22 in ED with pancolitis, being treated with cefdenir and flagyl (she says she's not taking flagyl).? 08/11/22 Dariel Araujo--O&P neg, C diff neg, shiga neg Can pass mucus with flatus. Denies hematochezia. Occas stool is dark, no definite melena. Diarrhea immed after eating. Not having any formed stools, even with Imodium. Has diarrhea in the night too. Waking up with hiccups. Constant nausea, phenergan no longer effective, except she's not vomiting. She has had colonoscopies, has had polyps. Was told in [place] that she had ulcerative colitis. Sister has UC. Smoker, +marijuana ROS Const Constitutional: Positive for frequent falls and weakness; No fatigue ENT ENT: No difficulty swallowing Gastro GI: No abdominal pain, belching, bloating, change in bowel habits, change in stool character, coffee ground emesis, constipation, cramping, diarrhea, heartburn, difficulty swallowing, feeling full early, excessive flatus, incontinent of stools, Vomiting blood/hematemesis, Blood in stool, loose stools, Black,tarry stools, nausea/dyspepsia, pain with swallowing, vomiting or other Musc Musculoskeletal: Positive for abnormal gait, joint pain, back pain, joint swelling, muscle cramps, muscle weakness, numbness, tingling, Arthritis and sciatica Skin Skin: No yellowing of the eye or itchy eyes Neuro Neurology: Positive for abnormal gait, weakness, frequent falls, numbness, tingling and tremor(s) Psych Psychiatric: Positive for anxiety and Positive for depression Endo Endocrine: No fatigue Aller/Imm Allergy/Immunologic: No itchy eyes J Carlos/Lymp Hematologic/Lymphatic: Positive for easy bruising; No easy bleeding Exam Const General: cooperative, comfortable and no acute distress Nutritional Appearance: average body habitus Orientation: alert, awake and oriented x3 Other: She walks with a cane HENMT Head: normal to inspection Eyes General: appearance normal, both eyes and all related structures Neck Neck: normal visual inspection Resp Effort & Inspection: normal respiratory effort GI Inspection: normal to inspection Palpation: soft, no hepatosplenomegaly, no masses and tender in the epigastrum Skin General: no jaundice Quality Reporting Tobacco Screening (CMS 138) Smoking Status: Current every day smoker Assessment and Plan Assessment and Plan (1) Diarrhea: ?Status:?Chronic ?Plan: 47-year-old female with diarrhea and upper abdominal pain in the setting of history of IBS.? She reports possible prior diagnosis of ulcerative colitis.? Recent diagnosis of pancolitis per CT in the ED. Rx colestipol start with once a day, may increase to twice a day for the diarrhea Blood in stool tests to evaluate the abdominal pain and diarrhea Schedule EGD and colonoscopy with office follow-up afterwards (2) Abdominal pain: ?Status:?Acute ?Plan: As above (3) Colitis: ?Status:?Acute ?Plan: As above ? ? ? Orders: Orders Comprehensive Metabolic Profil 08/25/22 R10.9 - Unspecified abdominal p ain, R19.7 - Diarrhea, unspecified ? CRP 08/25/22 R10.9 - Unspecified abdominal p ain, R19.7 - Diarrhea, unspecified ? LDH 08/25/22 R10.9 - Unspecified abdominal p ain, R19.7 - Diarrhea, unspecified ? CBC W/Diff, Automated 08/25/22 R10.9 - Unspecified abdominal p ain, R19.7 - Diarrhea, unspecified, R29.90 - Unspecified symptoms and signs involving the nervous system ? Erythrocyte Sed Rate 08/25/22 R10.9 - Unspecified abdominal p ain, R19.7 - Diarrhea, unspecified ? ZOILA Comprehensive Panel 08/25/22 R10.9 - Unspecified abdominal p ain, R19.7 - Diarrhea, unspecified ? Calprotectin, Stool 08/27/22 R10.9 - Unspecified abdominal p ain, R19.7 - Diarrhea, unspecified ? Stool Lactoferrin/WBC 08/27/22 R10.9 - Unspecified abdominal p ain, R19.7 - Diarrhea, unspecified ? ANCA 08/25/22 R10.9 - Unspecified abdominal p ain, R19.7 - Diarrhea, unspecified ? Celiac Disease Profile 08/25/22 R10.9 - Unspecified abdominal p ain, R19.7 - Diarrhea, unspecified ? Immunoglobulins G/A/M/E 08/25/22 R10.9 - Unspecified abdominal p ain, R19.7 - Diarrhea, unspecified ? EDDIE + Protein Elect, Serum 08/25/22 R10.9 - Unspecified abdominal p ain, R19.7 - Diarrhea, unspecified ? Miscellaneous Lab Procedure 08/25/22 K52.9 - Noninfective gastroente ritis and colitis, unspecified, R10.9 - Unspecified abdominal pain, R19.7 - Diarrhea, unspecified ? Medications: New colestipol 1 g? PO ONCE 60 tabs 0RF diarrhea ? ? Discontinued doxycycline hyclate ?? Discontinued Reason:? Pt not known to practice 100 mg? PO BID ? ? metronidazole ?? Discontinued Reason:? Pt no longer taking 500 mg? PO TID 29 tabs 0RF ? ? I have examined the patient and the H&P has been reviewed. There are no clinical changes since date of exam.
[2022-10-21] MEDS: Lactated Ringers 1,000 ML 15 ML IV (13:23)
--- NOTE | 2022-10-21 14:00 | IMM_PTH ---
PATIENT: AYAKA BRANTLEY LOC: EN U#:[id number] AGE/SX: 47/F ROOM: RE10/21/[address]: Dr. Anoop Andrade DO : 1975 BED: DIS: 10/21/2022 SPEC #: [id number] RECD: 10/22/22 12:38 STATUS: PRETTY REQ #: [id number] LEXX: 10/21/22 14:[address]: Anoop Andrade DEPT: IMMUNOHISTOCHEMISTRY RECD BY: Molly Michael ENTERED: 10/22/22 12:39 SP TYPE: IMMUNO OTHR DR: Tej Whitehead, WAREHOUSE SORTER-C Tissues: B - Stomach, NOS Procedures: H Pylori (initial) PHYSICIAN & INSTITUTION [place] [id number] SPECIMEN INFORMATION: Tissue Source: B ? Gastric body Clinical Info: Diarrhea, abdominal pain, colitis Specimen Number: [id number] CPT code: 71144 METHODOLOGY: Deparaffinized sections of prefer/formalin-fixed tissue or PAP/DQ stained slides are incubated with monoclonal/polyclonal antibodies/oligonucleotide probes. Localization is made via biotin free immunoperoxidase method. Appropriate controls are performed and reacted as expected. Results on target cell population are indicated in the following table: RESULTS: ANTIBODY / CLONE RESULT Block B H Pylori (polyclonal) positive These tests were developed and their performance characteristics determined by [facility]. They may not have been cleared or approved by the U.S. Food and Drug Administration. The FDA has determined that such clearance or approval is not necessary. The above immunohistochemical/dualISH markers are ordered and reviewed by the Pathologist. INTERPRETATION: B. Gastric body, biopsy: Positive for Helicobacter pylori. AM:maryam 10/23/2022
--- NOTE | 2022-10-21 14:00 | COLBX_PTH ---
PATIENT: AYAKA BRANTLEY LOC: EN U#:[id number] AGE/SX: 47/F ROOM: RE10/21/[address]: Dr. Anoop Andrade DO : 1975 BED: DIS: 10/21/2022 SPEC #: [id number] RECD: 10/21/22 16:11 STATUS: PRETTY VINH #: [id number] LEXX: 10/21/22 14:[address]: Anoop Andrade DEPT: SURGICAL PATHOLOGY RECD BY: Luz Michael ENTERED: 10/22/22 07:59 SP TYPE: COLON BX OTHR DR: Tej Whitehead, COUNSELING CENTER DIRECTOR-C Tissues: A - Duodenum, NOS B - Gastric mucous membrane C - COLON BIOPSY D - Esophagus, NOS E - Ileum, NOS F - COLON BIOPSY G - Sigmoid colon biopsy Procedures: Special Stain Group II Surgery Specimen Level IV Alcian Blue/PAS (control) HEADER OPERATION: Colonoscopy with biopsy, EGD with biopsy and dilation (MAC) PRE-OP DIAGNOSIS: Diarrhea, abdominal pain, colitis TISSUE SUBMITTED: A ? Duodenum, B ? Gastric body, C ? Lesser curvature, D ? Distal esophagus, E ? Terminal ileum, F ? Random colon, G ? Sigmoid colon MICROSCOPIC DIAGNOSIS A. Duodenum, biopsy: No pathologic change. B. Gastric body, biopsy: Chronic gastritis with focal active gastritis. See comment. C. Stomach, lesser curvature, biopsy: Chronic gastritis with focal active gastritis. D. Distal esophagus, biopsy: Gastroesophageal junctional mucosa with mild chronic inflammation. Changes of reflux. No evidence of goblet cell metaplasia. See comment. E. Terminal ileum, biopsy: No pathologic change. F. Colon, random biopsy: No pathologic change. G. Sigmoid colon, biopsy: Focal recent mucosal hemorrhage. AM:maryam 10/23/2022 COMMENT B. The results of immunohistochemistry for Helicobacter pylori will be reported separately ([id number]). D. Alcian blue/PAS stain with matched control supports the above diagnosis. MICROSCOPIC DESCRIPTION Slides are reviewed. GROSS DESCRIPTION A - Received in fixative is one container labeled with the patient's name and designated duodenum. The specimen consists of multiple irregular fragments of light smyth soft tissue that in aggregate measure 1.2 x 0.3 x 0.1 cm. The specimen is totally submitted in one cassette. B - Received in fixative is one container labeled with the patient's name and designated gastric body. The specimen consists of one irregular fragment of light smyth soft tissue that measures 0.4 x 0.3 x 0.1 cm. The specimen is totally submitted in one cassette. C - Received in fixative is one container labeled with the patient's name and designated lesser curvature. The specimen consists of one irregular fragment of light smyth soft tissue that measures 0.4 x 0.3 x 0.1 cm. The specimen is totally submitted in one cassette. D - Received in fixative is one container labeled with the patient's name and designated distal esophagus. The specimen consists of two irregular fragments of light smyth soft tissue that in aggregate measure 0.6 x 0.3 x 0.1 cm. The specimen is totally submitted in one cassette. E - Received in fixative is one container labeled with the patient's name and designated terminal ileum. The specimen consists of one irregular fragment of light smyth soft tissue that measures 0.4 x 0.3 x 0.1 cm. The specimen is totally submitted in one cassette. F - Received in fixative is one container labeled with the patient's name and designated random colon. The specimen consists of multiple irregular fragments of light smyth soft tissue that in aggregate measure 2.5 x 0.3 x 0.1 cm. The specimen is totally submitted in one cassette. G - Received in fixative is one container labeled with the patient's name and designated sigmoid colon. The specimen consists of multiple irregular fragments of light smyth soft tissue that in aggregate measure 1.2 x 0.4 x 0.1 cm. The specimen is totally submitted in one cassette. / SJ:rg 10/22/2022 TC:2 CPT: 09312 x7, 47084
--- NOTE | 2022-10-21 14:23 | OP.EGD_ITS ---
Patient Name: Raquel Robledo Procedure Date: 10/21/2022 1:31 PM Date of : 1975 Age: 47 Procedure: Upper GI endoscopy Indications: Dysphagia, Failure to respond to medical treatment Providers: Anoop Andrade DO Medicines: Monitored Anesthesia Care Patient Profile: This is a 47 year old female. Refer to note in patient chart for documentation of history and physical. Patient has symptoms of chronic abdominal cramping, chronic abdominal distention, chronic dysphagia and chronic nausea. Complications: No immediate complications. Procedure: Pre-Anesthesia Assessment: - Prior to the procedure, a History and Physical was performed, and patient medications and allergies were reviewed. The risks and benefits of the procedure and the sedation options and risks were discussed with the patient. All questions were answered and informed consent was obtained. Patient identification and proposed procedure were verified by the physician in the pre-procedure area. Mental Status Examination: alert and oriented. Respiratory Examination: clear to auscultation. CV Examination: normal. Prophylactic Antibiotics: The patient does not require prophylactic antibiotics. Prior Anticoagulants: The patient has taken no previous anticoagulant or antiplatelet agents. ASA Grade Assessment: II - A patient with mild systemic disease. After reviewing the risks and benefits, the patient was deemed in satisfactory condition to undergo the procedure. The anesthesia plan was to use monitored anesthesia care (MAC). Immediately prior to administration of medications, the patient was re-assessed for adequacy to receive sedatives. The heart rate, respiratory rate, oxygen saturations, blood pressure, adequacy of pulmonary ventilation, and response to care were monitored throughout the procedure. The physical status of the patient was re-assessed after the procedure. After obtaining informed consent, the endoscope was passed under direct vision. Throughout the procedure, the patient's blood pressure, pulse, and oxygen saturations were monitored continuously. The Colonoscope was introduced through the mouth, and advanced to the second part of duodenum. The upper GI endoscopy was accomplished without difficulty. The patient tolerated the procedure well. Scope In: 1:40:50 PM Scope Out: 1:53:39 PM Total Procedure Duration Time 0 hours 12 minutes 49 seconds Findings: One benign-appearing, intrinsic stenosis was found 20 to 22 cm from the incisors. This stenosis was moderately severe (circumferential scarring or stenosis; an endoscope may pass) and. The stenosis was traversed after dilation. A TTS dilator was passed through the scope. Dilation with a 12-13.5-15 mm balloon dilator was performed to 15 mm. The dilation site was examined and showed moderate improvement in luminal narrowing. Estimated blood loss was minimal. The Z-line was irregular and was found 38 cm from the incisors. Biopsies were taken with a cold forceps for histology. Verification of patient identification for the specimen was done. Estimated blood loss was minimal. A small hiatal hernia was present. Diffuse severe inflammation characterized by congestion (edema), erosions and erythema was found in the stomach. Biopsies were taken with a cold forceps for histology. Verification of patient identification for the specimen was done. Estimated blood loss was minimal. Diffuse moderate inflammation characterized by congestion (edema), erythema and friability was found in the duodenal bulb, in the first portion of the duodenum and in the second portion of the duodenum. Biopsies were taken with a cold forceps for histology. Verification of patient identification for the specimen was done. Estimated blood loss was minimal. Impression: - Benign-appearing esophageal stenosis. Dilated. - Z-line irregular, 38 cm from the incisors. Biopsied. - Small hiatal hernia. - Gastritis. Biopsied. - Duodenitis. Biopsied. Recommendation: - Discharge patient to home. - Patient has a contact number available for emergencies. The signs and symptoms of potential delayed complications were discussed with the patient. Return to normal activities tomorrow. Written discharge instructions were provided to the patient. - Resume previous diet. - Continue present medications. - Await pathology results. - Repeat upper endoscopy in 4 months for surveillance. Procedure Code(s): --- Professional --- 11638, Esophagogastroduodenoscopy, flexible, transoral; with transendoscopic balloon dilation of esophagus (less than 30 mm diameter) 45124, 59,51, Esophagogastroduodenoscopy, flexible, transoral; with biopsy, single or multiple CPT copyright 2017 [employer]. All rights reserved. The codes documented in this report are preliminary and upon waste water plant operator review may be revised to meet current compliance requirements. Anoop Andrade DO 10/21/2022 2:22:59 PM This report has been signed electronically. Number of Addenda: 0 Note Initiated On: 10/21/2022 1:31 PM
--- NOTE | 2022-10-21 14:23 | OP.CCLET_ITS ---
10/21/2022 Tej Whitehead Re : Upper GI endoscopy procedure for Raquel Robledo Dear [place] This procedure was performed on Friday, October 21, 2022. My impressions and recommendations are as follows: Impressions : - Benign-appearing esophageal stenosis. Dilated. - Z-line irregular, 38 cm from the incisors. Biopsied. - Small hiatal hernia. - Gastritis. Biopsied. - Duodenitis. Biopsied. Recommendations : - Discharge patient to home. - Patient has a contact number available for emergencies. The signs and symptoms of potential delayed complications were discussed with the patient. Return to normal activities tomorrow. Written discharge instructions were provided to the patient. - Resume previous diet. - Continue present medications. - Await pathology results. - Repeat upper endoscopy in 4 months for surveillance. My findings are described in the full procedure note, which is enclosed. If I can be of further assistance, please feel free to contact me at . Sincerely, Anoop Andrade, 10/21/2022 2:22:59 PM This report has been signed electronically.
--- NOTE | 2022-10-21 14:26 | OP.COLON_ITS ---
Patient Name: Raquel Robledo Procedure Date: 10/21/2022 1:53 PM Date of : 1975 Age: 47 Procedure: Colonoscopy Indications: Clinically significant diarrhea of unexplained origin Providers: Anoop Andrade DO Medicines: Monitored Anesthesia Care Patient Profile: This is a 47 year old female. Refer to note in patient chart for documentation of history and physical. Patient has symptoms of chronic abdominal cramping, chronic abdominal distention, chronic dysphagia and chronic nausea. Last Colonoscopy: none. The patient's first colonoscopy is today. Complications: No immediate complications. Procedure: Pre-Anesthesia Assessment: - Prior to the procedure, a History and Physical was performed, and patient medications and allergies were reviewed. The risks and benefits of the procedure and the sedation options and risks were discussed with the patient. All questions were answered and informed consent was obtained. Patient identification and proposed procedure were verified by the physician in the pre-procedure area. Mental Status Examination: alert and oriented. Respiratory Examination: clear to auscultation. CV Examination: normal. Prophylactic Antibiotics: The patient does not require prophylactic antibiotics. Prior Anticoagulants: The patient has taken no previous anticoagulant or antiplatelet agents. ASA Grade Assessment: II - A patient with mild systemic disease. After reviewing the risks and benefits, the patient was deemed in satisfactory condition to undergo the procedure. The anesthesia plan was to use monitored anesthesia care (MAC). Immediately prior to administration of medications, the patient was re-assessed for adequacy to receive sedatives. The heart rate, respiratory rate, oxygen saturations, blood pressure, adequacy of pulmonary ventilation, and response to care were monitored throughout the procedure. The physical status of the patient was re-assessed after the procedure. After I obtained informed consent, the scope was passed under direct vision. Throughout the procedure, the patient's blood pressure, pulse, and oxygen saturations were monitored continuously. The Colonoscope was introduced through the anus and advanced to the terminal ileum. The colonoscopy was performed without difficulty. The patient tolerated the procedure well. The quality of the bowel preparation was good. Scope In: 1:56:54 PM Scope Withdrawal Time 0 hours 12 minutes 38 seconds Scope Out: 2:14:00 PM Total Procedure Duration Time 0 hours 17 minutes 6 seconds Findings: The perianal and digital rectal examinations were normal. An area of mildly congested mucosa was found in the sigmoid colon, in the transverse colon and in the ascending colon. Biopsies were taken with a cold forceps for histology. Verification of patient identification for the specimen was done. Estimated blood loss was minimal. The distal ileum contained a few three mm ulcers. No bleeding was present. No stigmata of recent bleeding were seen. Biopsies were taken with a cold forceps for histology. Verification of patient identification for the specimen was done. Estimated blood loss was minimal. Patchy mild inflammation characterized by congestion (edema) was found in the sigmoid colon and in the descending colon. Biopsies were taken with a cold forceps for histology. Verification of patient identification for the specimen was done. Impression: - Congested mucosa in the sigmoid colon, in the transverse colon and in the ascending colon. Biopsied. - A few ulcers in the distal ileum. Biopsied. Recommendation: - Discharge patient to home. - Resume previous diet. - Continue present medications. - Await pathology results. - Repeat colonoscopy in 5 years for surveillance. Procedure Code(s): --- Professional --- 58134, Colonoscopy, flexible; with biopsy, single or multiple CPT copyright 2017 [employer]. All rights reserved. The codes documented in this report are preliminary and upon label coder review may be revised to meet current compliance requirements. Anoop Andrade DO 10/21/2022 2:26:32 PM This report has been signed electronically. Number of Addenda: 0 Note Initiated On: 10/21/2022 1:53 PM
--- NOTE | 2022-10-21 14:27 | OP.CCLET_ITS ---
10/21/2022 Tej Whitehead Re : Colonoscopy procedure for Raquel Robledo Dear Charley This procedure was performed on Friday, October 21, 2022. My impressions and recommendations are as follows: Impressions : - Congested mucosa in the sigmoid colon, in the transverse colon and in the ascending colon. Biopsied. - A few ulcers in the distal ileum. Biopsied. Recommendations : - Discharge patient to home. - Resume previous diet. - Continue present medications. - Await pathology results. - Repeat colonoscopy in 5 years for surveillance. My findings are described in the full procedure note, which is enclosed. If I can be of further assistance, please feel free to contact me at . Sincerely, Anoop Andrade, 10/21/2022 2:26:32 PM This report has been signed electronically.
== END 2022-10-21 15:22 | disposition home or self-care (01) ==
LOC: EN 12:43 → AC 12:45
PROVIDERS: PCP Nurse Practitioner Family; Referring Provider Nurse Practitioner Family; Visit Provider Internal Medicine Gastroenterology
PROC: 0DJD8ZZ Inspection of Lower Intestinal Tract, Via Natural or Artificial Opening Endoscopic (ICD-10-PCS; CPT 45378; principal; 2022-10-21 13:55)
DX: K22.2 Esophageal obstruction (principal); J44.9 Chronic obstructive pulmonary disease, unspecified; K63.3 Ulcer of intestine; K31.89 Other diseases of stomach and duodenum; K63.89 Other specified diseases of intestine; F17.200 Nicotine dependence, unspecified, uncomplicated; B96.81 Helicobacter pylori [H. pylori] as the cause of diseases classified elsewhere; K44.9 Diaphragmatic hernia without obstruction or gangrene; K29.70 Gastritis, unspecified, without bleeding; R13.10 Dysphagia, unspecified; I95.9 Hypotension, unspecified; K21.00 Gastro-esophageal reflux disease with esophagitis, without bleeding; F41.9 Anxiety disorder, unspecified; F32.A Depression, unspecified; F12.90 Cannabis use, unspecified, uncomplicated; Z79.899 Other long term (current) drug therapy; Z86.73 Personal history of transient ischemic attack (TIA), and cerebral infarction without residual deficits
CPT/HCPCS: 45380; 43249; 43239; 88305; 88313; 88342; J7120; C1769; J2405

== ENCOUNTER 2022-12-02 17:48 | Inpatient (IN) | payer MEDICARE, MEDICAID, SELFPAY ==
[2022-12-02] VITALS (25 sets, daily range): BP systolic 109–145; BP diastolic 65–87; PULSE 52–92; RESP 13–24; TEMP 36.4–36.9; O2SAT 96–100; BMI 24.0; BMI 23.3; BMI 23.2
--- NOTE | 2022-12-02 18:01 | CT_ITS ---
INDICATION: Neuro deficit, acute, stroke suspected new onset expressive aphasia and lower extremity weakness. EXAMINATION: CT BRAIN - CT Head Stroke Protocol W/O Contrast Injection TECHNIQUE: Multiple axial images were obtained of the head without intravenous contrast. A radiation dose optimization technique was used for this scan. IV Contrast dosage and agent: None. Radiation Dose (provided by facility) CTDIvol (NA ) mGy, DLP ( NA) mGy-cm COMPARISON: 03/08/2022 and MRI examination of 02/27/2020 FINDINGS: HEMISPHERES: 1. The cerebral parenchyma, ventricular system, subarachnoid spaces have normal configuration and density. There is a normal gyral pattern. There is normal clemons/white differentiation. No midline shift.. 2. The hemispheric white matter has normal appearance. 3. No intraparenchymal mass, hemorrhage, or acute territorial infarct. CEREBELLUM - BRAINSTEM: The cerebellum, brainstem, basilar and suprasellar cisterns have normal appearance. No Chiari malformation. PITUITARY: Partial empty sella is again noted.. No sellar or suprasellar masses. VESSELS: 1. No significant vascular calcifications in the cavernous carotid vessels. 2. No hyperdense vascular signs noted.. ORBITS AND PARANASAL SINUSES: 1. Normal appearance of the bony orbits. Normal appearance of the globes and retrobulbar soft tissues.. 2. Paranasal sinuses are clear. BONY ELEMENTS: Bony elements of the cranial vault, facial skeleton and skull base have normal appearance. SCALP AND SOFT TISSUES: Normal appearance of the soft tissues of the scalp and the visualized face OTHER: None CT/STROKE Brain/Head without Cont IMPRESSION: 1. Stable exam. 2. No intraparenchymal mass, hemorrhage, or acute territorial infarct. 3. No radiographically significant sinus disease. 4. Incidental note of partially sella. N.B. : The above Results were Read Back by Tej Salgado MD to Stew Chandler DO, and understanding confirmed on 12/02/2022 18:22:43 (ET). Electronically Signed: Tej Salgado MD at 18:26 EST ,
--- NOTE | 2022-12-02 18:01 | EKG12_ITS ---
Test Reason : DYSRHYTHMIA Blood Pressure : / mmHG Vent. Rate : 063 BPM Atrial Rate : 063 BPM P-R Int : 154 ms QRS Dur : 088 ms QT Int : 416 ms P-R-T Axes : 080 060 061 degrees QTc Int : 425 ms Sinus rhythm with Premature atrial complexes Otherwise normal ECG Confirmed by SONIYA SMITH, GERHARD ([id number]), scientific publications editor REMI FUNEZ ([id number]) on 12/03/2022 1:48:33 PM Referred By: JUANY Confirmed By:GERHARD BYRNES MD
--- NOTE | 2022-12-02 18:02 | CT_ITS ---
INDICATION: Neuro deficit, acute, stroke suspected EXAMINATION: CT BRAIN WITH CONTRAST TECHNIQUE: Noncontrast axial images were obtained of the brain. Subsequently, routine carotid CT angiogram protocol was performed without and with IV contrast. In addition, images were obtained of the [place]. NASCET criteria using the distal ICAs for comparison were used for evaluation of stenoses. 3D reconstructions were reviewed. A radiation dose optimization technique was used for this scan. IV Contrast dosage and agent: 100 mL [id number]-370 Radiation Dose (provided by facility) CTDIvol (21.49 ) mGy, DLP ( 954.98) mGy-cm COMPARISON: Noncontrast CT examination of the same date. FINDINGS: --CT BRAIN: BRAIN PARENCHYMA: No intra- or extra-axial hemorrhage. No evidence of acute infarct. No intracranial mass or mass effect. There is preservation of the clemons/white matter interface. Posterior fossa structures are unremarkable. No areas of abnormal contrast enhancement. CSF SPACES: Appropriate for age. No hydrocephalus. Basal cisterns are patent. CALVARIUM, SKULL BASE, PARANASAL SINUSES AND MASTOID AIR CELLS: Clear. No discrete lytic or blastic abnormalities. --CTA [place]: PETROUS AND CAVERNOUS CAROTID ARTERIES: Normal appearance of the petrous and cavernous carotid vessels bilaterally. No focal stenosis noted. SUPRACLINOID CAROTID ARTERIES: Normal appearance the supraclinoid carotid vessels bilaterally, the visualized ophthalmic arteries have normal appearance. ANTERIOR CEREBRAL AND A- COMM: Normal appearance the proximal and distal segments of the anterior cerebral circulation bilaterally. MIDDLE CEREBRAL ARTERIES: Normal appearance the proximal and distal segments of the middle cerebral circulation bilaterally. Normal appearance of the M4 cortical distribution bilaterally. INTRACRANIAL VERTEBRAL ARTERIES AND BASILAR ARTERY: Normal appearance of the intracranial course of the vertebral arteries bilaterally, normal appearance of basilar artery to the level of the bifurcation. POSTERIOR CEREBRAL ARTERIES: Normal appearance proximal distal segments of posterior cerebral circulation bilaterally. DURAL SINUSES: Normal, no filling defects noted --CTA NECK: AORTIC ARCH AND BRANCHES: Normal anatomy, patent. RIGHT CCA: No occlusion, significant stenosis or dissection. RIGHT ICA: No occlusion, significant stenosis or dissection. LEFT CCA: No occlusion, significant stenosis or dissection. LEFT ICA: No occlusion, significant stenosis or dissection. RIGHT VERTEBRAL ARTERY: No occlusion, significant stenosis or dissection. LEFT VERTEBRAL ARTERY: No occlusion, significant stenosis or dissection. NECK SOFT TISSUES: Unremarkable. CT/STROKE CTA Head AND Neck W/Con IMPRESSION: 1. Normal CTA examination the [place]. No focal stenosis occlusion or aneurysmal dilatation. No evidence of LVO or vascular malformation. 2. Normal CTA examination of the cervical carotid and vertebral circulation without stenosis occlusion or filling defect. Electronically Signed: Tej Salgado MD at 18:42 EST ,
--- NOTE | 2022-12-02 18:02 | NURSING ---
1759 STROKE ALERT CALLED
--- NOTE | 2022-12-02 18:02 | ED.RN ---
1750 dr. majano to ana to assess pt.
[2022-12-02 18:28] LABS: Absolute Lymphocyte Count 4.22 X10^3/uL (0.83-4.51); Absolute Neutrophil Count 2.4 X10^3/uL (2.0-7.7); Basophil% 1.3 % (0-1); Eosinophil# 0.42 X10^3/uL; Eosinophils% 5.5 % (0-5); Hematocrit 44.5 % (37-47); Lymphocyte # 4.22 X10^3/ul (0.83-4.51); Lymphocyte % 55.2 % (19-41); Mean Corp Hgb Conc 33.7 g/dL (32-36); Mean Corpuscular Hgb 31.2 pg (27.0-32.0); Mean Corpuscular Volume 92.5 fL (81-99); Mean Platelet Vol. 8.6 fl (6.2-12.0); Monocyte# 0.49 X10^3/uL; Monocyte% 6.4 % (0-10); NRBC Flagged by Analyzer 0 % (0-5); Neutrophil % 31.5 % (47-70); Platelet Count 357 K/mm3 (150-450); RBC Distribution Width CV 13.5 % (11.6-14.6); RBC Distribution Width SD 46.9 fl (35.1-43.9); Red Blood Count 4.81 M/mm3 (4.2-5.4); White Blood Count 7.6 K/mm3 (4.4-11.0)
[2022-12-02 18:46] LABS: Anion Gap 7 (5-15); BUN 11 mg/dL (7-18); BUN/Creat Ratio 14.4 RATIO (10-20); Calcium,Total 9.2 mg/dL (8.5-10.1); Chloride 108 mmol/L (98-107); Creatinine, Serum 0.76 mg/dL (0.55-1.02); EST Glomerular Filtration Rate 87 mL/min (>60); Est Glom Filt Rate - Afr Amer 105 mL/min (>60); Estimated Creatinine Clearance 80.72 ml/min; Glucose 91 mg/dL (74-106); Potassium 3.8 mmol/L (3.5-5.1); Sodium Level 140 mmol/L (136-145); Troponin-I HS 3 pg/mL (3.0-54.0)
--- NOTE | 2022-12-02 18:47 | ED.VIS.STROK ---
HPI History of Present Illness Chief Complaint: Stroke Alert Informant: patient and friend Onset/Context/Timing Onset: Today and Hours (2) Context: Sudden Onset Timing: Continuous Quality and Location: Positive for Left Facial Droop, Right Arm Weakness, Left Arm Weakness, Right Leg Weakness, Left Leg Weakness, Slurred Speech and Expressive Aphasia Onset: Approximately 2 hours prior to arrival Worsened by: Nothing Relieved by: Nothing Associated Symptoms Associated Symptoms: Negative for Headache, Nausea, Vomiting or Chest Pain Narrative Narrative: Patient presents with sudden onset of slurred speech and expressive aphasia that began approximately 2 hours prior to arrival while she was talking on the phone. Family friend is with her and states that it was his who was talking to her on the phone when her symptoms began. Patient states she is having difficulty saying the words that she wants to say. Patient also admits to some weakness in both arms and both legs. Patient denies any headaches. Patient denies any visual changes. [facility] Medical History Anxiety Anxiety and depression Arthritis Asthma Back pain Cancer Conversion disorder Depression Difficulty swallowing Emphysema/COPD Fibromyalgia Gastric reflux History of edema History of pain when walking History of pseudoseizure History of TIAs Hypotension Injury of head and neck Irritable bowel syndrome Kidney stones Marijuana use Migraines Post-menopausal Shortness of breath on exertion Smoker Stroke/cerebrovascular accident Tobacco use Wears dentures Home Medications cholecalciferol (vitamin D3) 125 mcg (5,000 unit) disintegrating tablet 10,000 unit PO DAILY supplement 12/27/19 [History Last Taken 12/01/22] gabapentin 300 mg capsule 300 mg PO TID fibromyalgia/migraines 12/27/19 [History Last Taken 12/02/22] vitamin B complex 1 ea PO DAILY supplement 12/27/19 [History Last Taken 12/02/22] prazosin 2 mg capsule 2 mg PO QHS 09/20/20 [History Last Taken 12/01/22] tizanidine 4 mg capsule (Zanaflex) 4 mg PO QHS 09/20/20 [History Last Taken 12/01/22] multivitamin (Multiple Vitamins tablet) 1 tab PO DAILY 07/01/21 [History Last Taken 12/02/22] promethazine 12.5 mg tablet 12.5 mg PO PRN PRN Nausea 07/01/21 [History Last Taken 11/30/22] turmeric root extract 1,053 mg tablet 1,076 mg PO DAILY 07/01/21 [History Last Taken 12/01/22] vitamin E (dl, acetate) 45 mg (100 unit) capsule 45 mg PO DAILY 07/01/21 [History Last Taken 12/01/22] albuterol sulfate 90 mcg/actuation aerosol inhaler 2 puff inhalation Q6H PRN ASTHMA 08/12/22 [History Last Taken Unknown] levocetirizine 5 mg tablet (Allergy Relief (levocetirizine)) 5 mg PO QPM PRN ALLERGIES 08/12/22 [History Last Taken 12/01/22] triamcinolone acetonide 55 mcg nasal spray aerosol 2 spray intranasal DAILY PRN ALLERGIES 08/12/22 [History Last Taken 11/25/22] biotin 10 mg tablet 10 mg PO DAILY 10/15/22 [History Last Taken 12/02/22] fludrocortisone 0.1 mg tablet 0.1 mg PO DAILY 10/15/22 [History Last Taken 12/01/22] loperamide 2 mg capsule 2 mg PO Q6H PRN PRN Diarrhea 10/15/22 [History Last Taken 12/01/22] pantoprazole 40 mg tablet,delayed release 40 mg PO BID #180 tabs 10/27/22 [Rx Last Taken 12/02/22] fremanezumab-vfrm 225 mg/1.5 mL subcutaneous syringe (Ajovy Syringe) 225 mg subcut QMONTH JUDD 12/02/22 [History Last Taken 11/03/22] Allergy/AdvReac Type Severity Reaction Status Date / Time bee pollen Allergy Severe Anaphylaxis Verified 12/02/22 17:49 coconut Allergy Intermediate Eye Verified 12/02/22 17:49 swelling, Rash egg Allergy Mild Rash, GI Verified 12/02/22 17:49 cramping aspirin Allergy Shortness Verified 12/02/22 17:49 of breath bupropion HCl Allergy Other Verified 12/02/22 17:49 [From Wellbutrin] divalproex sodium Allergy Rash Verified 12/02/22 17:49 [From Depakote] doxycycline Allergy Rash Verified 12/02/22 17:49 Gadolinium-MRI Contrast Allergy Hives Verified 12/02/22 17:49 Medium [Gadolinium-Contrast Medium - MRI] lamotrigine [From Lamictal] Allergy Rash Verified 12/02/22 17:49 latex Allergy Hives Verified 12/02/22 17:49 phenytoin sodium Allergy Hives Verified 12/02/22 17:49 [From Dilantin] phenytoin sodium extended Allergy Hives Verified 12/02/22 17:49 [From Dilantin] pineapple Allergy Swelling, Verified 12/02/22 17:49 Rash erythromycin base AdvReac Nausea/Vom/ Verified 12/02/22 17:49 Diarrhea quetiapine fumarate AdvReac Other Verified 12/02/22 17:49 [From Seroquel] Sulfa (Sulfonamide AdvReac Vomiting Verified 12/02/22 17:49 Antibiotics) varenicline tartrate AdvReac Vomiting Verified 12/02/22 17:49 [From Chantix] Family History (Reviewed 10/31/22 @ 16:07 by Monae Villa [employer], [employer]) Mother Diabetes Heart disease Hypertension HLD (hyperlipidemia) Father Diabetes Heart disease Hypertension HLD (hyperlipidemia) Surgical History H/O section H/O knee surgery History of cholecystectomy History of dilation and curettage Hx of tooth extraction S/P partial hysterectomy Social History adopted: Yes household members: none housing: house current occupational status: disabled Smoking Status: Current every day smoker tobacco type: cigarettes alcohol intake: never substance use type: marijuana what type of physical activity do you participate in: other details: home exercises, fishing do you feel safe at home: Yes ROS ROS ED Constitutional Constitutional ED: Denies chills or fever(s) Eyes Eyes: Denies blurry vision or change in vision ENT ENT ED: Denies rhinorrhea or sore throat Cardiovascular Cardiovascular: Denies chest pain or palpitations Respiratory/Chest Respiratory/Chest: Denies cough or dyspnea Gastrointestinal Gastrointestinal: Denies nausea or vomiting Genitourinary Genitourinary ED: Denies dysuria or hematuria Musculoskeletal Musculoskeletal: Denies back pain or neck pain Integumentary Denies abscess or rash Neurologic Neurologic: Reports paresthesias and weakness; Denies headache(s) Allergic/Immunologic Allergic/Immunologic ED: Denies mouth swelling or urticaria EXAM Physical Exam Const Vital Signs: 12/02/22 17:50 12/02/22 18:18 12/02/22 18:25 Temperature 97.8 F Temperature Source Temporal Pulse Rate 92 70 Respiratory Rate 18 24 H Blood Pressure 114/72 144/82 H Blood Pressure Mean 86 102 Blood Pressure Source Blood Pressure Position Blood Pressure Location Pulse Ox 100 100 100 Oxygen Delivery Method Room Air Room Air Room Air 12/02/22 18:42 12/02/22 18:42 12/02/22 18:48 Temperature Temperature Source Pulse Rate 65 65 Respiratory Rate 14 14 Blood Pressure 144/85 H 144/85 H 144/85 H Blood Pressure Mean 104 104 Blood Pressure Source Monitor Blood Pressure Position Semi-Fowlers Blood Pressure Location Left Arm Pulse Ox 100 100 Oxygen Delivery Method Room Air Room Air 12/02/22 19:03 12/02/22 19:00 12/02/22 19:15 Temperature Temperature Source Pulse Rate 61 65 60 Respiratory Rate 13 21 H 20 H Blood Pressure 136/80 H 136/80 H 125/81 H Blood Pressure Mean 98 98 95 Blood Pressure Source Monitor Monitor Blood Pressure Position Semi-Fowlers Semi-Fowlers Blood Pressure Location Left Arm Left Arm Pulse Ox 100 99 98 Oxygen Delivery Method Room Air Room Air Room Air 12/02/22 19:30 12/02/22 19:45 12/02/22 20:00 Temperature Temperature Source Pulse Rate 63 58 L 58 L Respiratory Rate 19 H 16 18 Blood Pressure 145/83 H 132/87 H 127/84 H Blood Pressure Mean 103 102 98 Blood Pressure Source Monitor Monitor Monitor Blood Pressure Position Semi-Fowlers Semi-Fowlers Semi-Fowlers Blood Pressure Location Left Arm Left Arm Left Arm Pulse Ox 99 100 98 Oxygen Delivery Method Room Air Room Air Room Air 12/02/22 20:05 12/02/22 20:15 12/02/22 20:30 Temperature Temperature Source Pulse Rate 58 L 59 L 59 L Respiratory Rate 13 19 H 22 H Blood Pressure 127/84 H 134/84 H 130/86 H Blood Pressure Mean 98 100 100 Blood Pressure Source Monitor Monitor Blood Pressure Position Semi-Fowlers Semi-Fowlers Blood Pressure Location Left Arm Left Arm Pulse Ox 98 98 98 Oxygen Delivery Method Room Air Room Air Room Air 12/02/22 20:45 12/02/22 21:00 12/02/22 21:14 Temperature Temperature Source Pulse Rate 55 L 60 60 Respiratory Rate 19 H 21 H 18 Blood Pressure 123/81 H 135/79 H 138/81 H Blood Pressure Mean 95 97 100 Blood Pressure Source Monitor Monitor Blood Pressure Position Semi-Fowlers Semi-Fowlers Blood Pressure Location Left Arm Left Arm Pulse Ox 98 99 98 Oxygen Delivery Method Room Air Room Air Room Air Positive well nourished and well developed General Appearance ED: well developed and NAD HEENT Reports moist mucous membranes Eyes PERRL and EOMs intact bilaterally Neck supple and no JVD Resp normal respiratory effort and clear to auscultation bilaterally Cardio Rate: regular rate Rhythm: regular rhythm GI normal to inspection, nondistended, normoactive bowel sounds, soft to palpation and non-tender Neuro oriented x3 and no sensory deficits noted [place] Coma Scale: document GCS findings Spontaneous Obeys Commands Oriented 15 Sensorium / Orientation: alert Motor Exam: general weakness Psych mental status grossly normal Skin no wounds NIHSS NIHSS Initial: 1a Level of Consciousness: 0 1b LOC Questions (Score 2 if aphasic/stupor): 0 1c LOC Commands (Only score 1st attempt): 0 2 Best Gaze (If aphasic, use reflexive mvmts.): 0 3 Visual: 0 4 Facial Palsy: 2 5 Motor Arm Right (UN = amputation/fusion): 1 5 Motor Arm Left: 1 6 Motor Leg Right: 1 6 Motor Leg Left: 1 7 Limb ataxia (Only + if out of proportion): 1 8 Sensory (Aphasia/stupor=0 or 1, coma=2): 0 9 Best Language: 1 10 Dysarthria (mute, coma=2, intubated=UN): 0 11 Extinction and Inattention (only scored if +): 0 Total Score: 8 MDM MDM MDM Narrative Medical decision making narrative: Differential diagnosis includes stroke, complex migraine, conversion disorder, TIA, or drug toxicity. Stroke alert was called since the patient's symptoms of expressive aphasia and slurred speech started 2 hours prior to arrival. CT scan of the brain will be obtained to assess for stroke. CTA of the head and neck will be obtained to assess for large vessel occlusion. EKG will be obtained to assess for cardiac dysrhythmia and cardiac ischemia. CBC will be obtained to assess for leukocytosis and anemia. Basic metabolic profile will be obtained to assess for electrolyte abnormality and renal function. High-sensitivity troponin will be obtained to assess for cardiac ischemia. PT with INR and PTT will be obtained to assess for coagulopathy. Portable chest x-ray will be obtained to assess for cardiomegaly, congestive heart failure, and pneumonia. Lab Data Lab results narrative: CBC was reviewed and was within normal limits. Basic metabolic profile was reviewed and was within normal limits. High-sensitivity troponin was reviewed and was within normal limits. Labs: Laboratory Results - last 24 hr 12/02/22 12/02/22 12/02/22 18:13 18:13 18:13 WBC 7.6 RBC 4.81 Hgb 15.0 Hct 44.5 MCV 92.5 MCH 31.2 MCHC 33.7 RDW Std Deviation 46.9 H RDW Coeff of Yuly 13.5 Plt Count 357 MPV 8.6 Immature Gran % (Auto) 0.100 Neut % (Auto) 31.5 L Lymph % (Auto) 55.2 H [place] % (Auto) 6.4 Eos % (Auto) 5.5 H Baso % (Auto) 1.3 H Absolute Neuts (auto) 2.4 Absolute Lymphs (auto) 4.22 Nucleated RBC % 0 PT 13.1 INR 1.0 APTT 28.6 Sodium 140 Potassium 3.8 Chloride 108 H Carbon Dioxide 25.0 Anion Gap 7 BUN 11 Creatinine 0.76 Estim Creat Clear Calc 80.72 Est GFR (MDRD) Af Amer 105 Est GFR (MDRD) Non-Af 87 BUN/Creatinine Ratio 14.4 Glucose 91 Calcium 9.2 Troponin I High Sens 3 Radiography Diagnostic Testing: Clinical Impression(s) from Imaging Studies Brain CT 12/02/22 18:01 IMPRESSION: 1. Stable exam. 2. No intraparenchymal mass, hemorrhage, or acute territorial infarct. 3. No radiographically significant sinus disease. 4. Incidental note of partially sella. N.B. : The above Results were Read Back by Tej Salgado MD to Stew Chandler DO, and understanding confirmed on 12/02/2022 18:22:43 (ET). Electronically Signed: Tej Salgado MD at 18:26 EST , ADDENDUM: 12/02/22 1833 IMPRESSION: 1. Stable exam. 2. No intraparenchymal mass, hemorrhage, or acute territorial infarct. 3. No radiographically significant sinus disease. 4. Incidental note of partially sella. N.B. : The above Results were Read Back by Tej Salgado MD to Stew Chandler DO, and understanding confirmed on 12/02/2022 18:22:43 (ET). Electronically Signed: Tej Salgado MD at 18:26 EST , Head/Neck CTA 12/02/22 18:02 IMPRESSION: 1. Normal CTA examination the [place]. No focal stenosis occlusion or aneurysmal dilatation. No evidence of LVO or vascular malformation. 2. Normal CTA examination of the cervical carotid and vertebral circulation without stenosis occlusion or filling defect. Electronically Signed: Tej Salgado MD at 18:42 EST , Chest X-Ray 12/02/22 18:50 IMPRESSION: 1. No evidence of acute cardiopulmonary process Electronically Signed: Tej Salgado MD at 19:34 EST , CT scan of the brain was obtained. There is no acute intracranial abnormality. This was interpreted by the radiologist and was also independently reviewed by myself. CTA of the head neck was obtained. There is no large vessel occlusion. There is no evidence of dissection. There is no evidence of stenosis. This was interpreted by the radiologist. This was also independently reviewed by myself. Portable 1 view chest x-ray was obtained. On my independent interpretation, lung monte[place] are clear. There is normal cardiac silhouette. Bony thorax is normal. There is no acute process noted. Radiologist also interpreted the x-ray and agrees. EKG Initial EKG: Attestation: I personally reviewed and interpreted this EKG as follows: Interpretation: Sinus Rhythm and No Acute Injury Pattern Comments: EKG was obtained. On my interpretation, it showed a normal sinus rhythm with a rate of 63. TN interval, QRS interval, and QTc intervals were all normal. [place] was normal. There are no acute ST or T wave changes. Prior EKG tracings: available for review Prior: Unchanged (03/08/2022) Treatment and Re-Evaluation Narrative: Patient was evaluated by stroke neurologist from the [facility]. They did recommend giving tenecteplase based on the symptoms of aphasia and expressive aphasia that was new tonight. Patient was advised of the risks and benefits of tenecteplase. Patient is agreeable to receive this medication. Tenecteplase was ordered and infused. On reevaluation, patient seemed to be talking better. Patient appeared to be moving her extremities better. Case was discussed with the hospitalist. She will admit the patient to ICU. Patient understood and was agreeable with the plan. All questions were answered. Stroke Documentation Questions Stroke Team Activated: Yes Reviewed Inclusion/Exclusion criteria: Yes Was Patient considered for Endovascular Intervention?: No-CTA negative, determined not to be an endovascular candidate IV Thrombolytic Administered: Yes No contraindications from thrombolytic administration: Yes Risks, Benefits, Alternatives Discussed: Yes Critical Care Time Critical Care Time: Yes Critical care time (excluding procedures): 30-74 minutes (36), Including time spent:, Discussing w/Patient &/or Family/Checkering Machine Adjuster, Discussing w/Consultants, Arranging Admission or Transfer and Performing Direct Patient Care at Bedside Discharge Plan Triage Chief Complaint: Stroke Alert ED Provider: Stew Chandler Dx/Rx/DC Orders Clinical Impression: Stroke, Tobacco use, History of migraine, Expressive aphasia Prescriptions: No Action vitamin E (dl, acetate) 45 mg (100 unit) capsule 45 mg PO DAILY turmeric root extract 1,053 mg tablet 1,076 mg PO DAILY multivitamin [Multiple Vitamins] Tablet 1 tab PO DAILY promethazine 12.5 mg tablet 12.5 mg PO PRN PRN (Reason: Nausea) levocetirizine [Allergy Relief (levocetirizin)] 5 mg tablet 5 mg PO QPM PRN (Reason: ALLERGIES) triamcinolone acetonide 55 mcg aerosol,spray 2 spray intranasal DAILY PRN (Reason: ALLERGIES) Rx Instructions: administer into each nostril albuterol sulfate 90 mcg/actuation HFA aerosol inhaler 2 puff inhalation Q6H PRN (Reason: ASTHMA) gabapentin 300 MG capsule 300 mg PO TID cholecalciferol (vitamin D3) 5,000 UNIT tablet,disintegrating 10,000 unit PO DAILY vitamin B complex 1 EACH tablet 1 ea PO DAILY prazosin 2 MG capsule 2 mg PO QHS tizanidine [Zanaflex] 4 MG capsule 4 mg PO QHS biotin 10 mg Tablet 10 mg PO DAILY loperamide 2 mg capsule 2 mg PO Q6H PRN PRN (Reason: Diarrhea) Label Comments: TAKE 1 CAPSULE BY MOUTH EVERY 6 HOURS NEEDED for abdominal pain/diarrhea. max EIGHT capsules in 24 hours. fludrocortisone 0.1 mg tablet 0.1 mg PO DAILY Label Comments: TAKE 1 TABLET BY MOUTH EVERY DAY Ajovy Syringe 225 mg/1.5 mL syringe 225 mg SUBCUT QMONTH pantoprazole 40 mg tablet,delayed release (DR/EC) 40 mg PO BID Qty: 180 0RF Primary Care Provider: Tej Whitehead NP Referrals: Tej Whitehead NP, [employer] [Primary Care Provider] - Disposition Disposition: Acute Care Hospital [facility]
[2022-12-02] MEDS: 0.9% Normal Saline 1,000 ML 100 ML IV (18:50)
--- NOTE | 2022-12-02 18:50 | RAD_ITS ---
INDICATION: Neuro deficit, acute, stroke suspected EXAMINATION/TECHNIQUE: X-RAY - XR Chest 1 View COMPARISON: 03/08/2022 FINDINGS: LIFE-SUPPORT AND LINES: 1. None HEART AND VESSELS: The cardiac silhouette, pulmonary vasculature have normal appearance. No evidence of congestive failure. LUNGS AND PLEURAL SPACES: Lungs are clear. No focal infiltrate, consolidation or effusions. No evidence of pneumothorax. No pulmonary mass is noted. MEDIASTINUM AND HILAR REGIONS: No masses adenopathy noted. No areas of calcification. Visualized upper airway is normal in position. BONY ELEMENTS: No acute bony changes noted. RAD/Chest 1 View IMPRESSION: 1. No evidence of acute cardiopulmonary process Electronically Signed: Tej Salgado MD at 19:34 EST ,
[2022-12-02 18:55] LABS: Partial Thromboplast Time 28.6 Seconds (24.1-36.2); Prothrombin Time (Protime)PT. 13.1 SECONDS (11.7-14.9)
--- NOTE | 2022-12-02 21:33 | ED.RN ---
THIS RN CALLED REPORT TO ICU. REPORT TAKEN BY BRUNA GARDNER [id number].
--- NOTE | 2022-12-02 22:02 | PCM.HP.STD ---
HPI - General General Date of Admission: 12/02/22 Date of Service: 12/02/22 Chief Complaint: Slurred speech HPI Narrative AYAKA BRANTLEY, is a 47 F with a history of migraines, strokelike symptoms in February, fibromyalgia, and chronic GI problems who presented to [facility] 12/02/2022 as a stroke call after she developed slurred speech and word finding difficulty between 4 and 4:30 PM while on the phone with a friend. At that time she also did have a fall where she hurt her tailbone and there was concern that she also hurt or arm because she began having some general aches and pains. Her friends has been presented to her house and noticed the slurring and stuttering and felt that the right side of her face may have been somewhat puffy by the time she got to the ED that the left side of her face was not moving very well. Per patient and friend at bedside she has chronic slight right-sided weakness after stroke like symptoms in February, she follows with neurology and reports they told her that it was a stroke but that she had previously been told it was conversion disorder. She said that she had gotten better and in August no longer required multiple therapies but still has not been cleared to drive or cook. After this most recent episode that brought her to the ED she had some possible left arm weakness and both her legs were jittery but she denied that she had any weakness or changes. In ED CT head and CTA with no acute changes and stroke call performed with ultimate decision for tenecteplase. She received tenecteplase at 1838 with some improvement in symptoms and medicine service called for admission for further work-up. On evaluation patient reports she is irritated by the frequent neurochecks and still has some problems with slurring her words but does feel better than she did on arrival. She has had somewhat of a right-sided headache prior to arrival but is unchanged and also reports that she had bilateral blurry vision before she had any neurological symptoms that resolved to the hospital and does report now that she is tired she feels both eyes are slightly blurry but denies any other new neurological complaints. [facility] Medical History Anxiety Anxiety and depression Arthritis Asthma Back pain Cancer Conversion disorder Depression Difficulty swallowing Emphysema/COPD Fibromyalgia Gastric reflux History of edema History of pain when walking History of pseudoseizure History of TIAs Hypotension Injury of head and neck Irritable bowel syndrome Kidney stones Marijuana use Migraines Post-menopausal Shortness of breath on exertion Smoker Stroke/cerebrovascular accident Tobacco use Wears dentures Home Medications cholecalciferol (vitamin D3) 125 mcg (5,000 unit) disintegrating tablet 10,000 unit PO DAILY supplement 12/27/19 [History Last Taken 12/01/22] gabapentin 300 mg capsule 300 mg PO TID fibromyalgia/migraines 12/27/19 [History Last Taken 12/02/22] vitamin B complex 1 ea PO DAILY supplement 12/27/19 [History Last Taken 12/02/22] prazosin 2 mg capsule 2 mg PO QHS 09/20/20 [History Last Taken 12/01/22] tizanidine 4 mg capsule (Zanaflex) 4 mg PO QHS 09/20/20 [History Last Taken 12/01/22] multivitamin (Multiple Vitamins tablet) 1 tab PO DAILY 07/01/21 [History Last Taken 12/02/22] promethazine 12.5 mg tablet 12.5 mg PO PRN PRN Nausea 07/01/21 [History Last Taken 11/30/22] turmeric root extract 1,053 mg tablet 1,076 mg PO DAILY 07/01/21 [History Last Taken 12/01/22] vitamin E (dl, acetate) 45 mg (100 unit) capsule 45 mg PO DAILY 07/01/21 [History Last Taken 12/01/22] albuterol sulfate 90 mcg/actuation aerosol inhaler 2 puff inhalation Q6H PRN ASTHMA 08/12/22 [History Last Taken Unknown] levocetirizine 5 mg tablet (Allergy Relief (levocetirizine)) 5 mg PO QPM PRN ALLERGIES 08/12/22 [History Last Taken 12/01/22] triamcinolone acetonide 55 mcg nasal spray aerosol 2 spray intranasal DAILY PRN ALLERGIES 08/12/22 [History Last Taken 11/25/22] biotin 10 mg tablet 10 mg PO DAILY 10/15/22 [History Last Taken 12/02/22] fludrocortisone 0.1 mg tablet 0.1 mg PO DAILY 10/15/22 [History Last Taken 12/01/22] loperamide 2 mg capsule 2 mg PO Q6H PRN PRN Diarrhea 10/15/22 [History Last Taken 12/01/22] pantoprazole 40 mg tablet,delayed release 40 mg PO BID #180 tabs 10/27/22 [Rx Last Taken 12/02/22] fremanezumab-vfrm 225 mg/1.5 mL subcutaneous syringe (Ajovy Syringe) 225 mg subcut QMONTH JUDD 12/02/22 [History Last Taken 11/03/22] Allergy/AdvReac Type Severity Reaction Status Date / Time bee pollen Allergy Severe Anaphylaxis Verified 12/02/22 17:49 coconut Allergy Intermediate Eye Verified 12/02/22 17:49 swelling, Rash egg Allergy Mild Rash, GI Verified 12/02/22 17:49 cramping aspirin Allergy Shortness Verified 12/02/22 17:49 of breath bupropion HCl Allergy Other Verified 12/02/22 17:49 [From Wellbutrin] divalproex sodium Allergy Rash Verified 12/02/22 17:49 [From Depakote] doxycycline Allergy Rash Verified 12/02/22 17:49 Gadolinium-MRI Contrast Allergy Hives Verified 12/02/22 17:49 Medium [Gadolinium-Contrast Medium - MRI] lamotrigine [From Lamictal] Allergy Rash Verified 12/02/22 17:49 latex Allergy Hives Verified 12/02/22 17:49 phenytoin sodium Allergy Hives Verified 12/02/22 17:49 [From Dilantin] phenytoin sodium extended Allergy Hives Verified 12/02/22 17:49 [From Dilantin] pineapple Allergy Swelling, Verified 12/02/22 17:49 Rash erythromycin base AdvReac Nausea/Vom/ Verified 12/02/22 17:49 Diarrhea quetiapine fumarate AdvReac Other Verified 12/02/22 17:49 [From Seroquel] Sulfa (Sulfonamide AdvReac Vomiting Verified 12/02/22 17:49 Antibiotics) varenicline tartrate AdvReac Vomiting Verified 12/02/22 17:49 [From Chantix] Family History Mother Diabetes Heart disease Hypertension HLD (hyperlipidemia) Father Diabetes Heart disease Hypertension HLD (hyperlipidemia) Surgical History H/O section H/O knee surgery History of cholecystectomy History of dilation and curettage Hx of tooth extraction S/P partial hysterectomy Social History adopted: Yes household members: none housing: house current occupational status: disabled Smoking Status: Current every day smoker tobacco type: cigarettes alcohol intake: never substance use type: marijuana what type of physical activity do you participate in: other details: home exercises, fishing do you feel safe at home: Yes ROS ROS Narrative General: Denies fever or chills, denies weight change HENT: Slight right-sided headache present prior to tPA, denies stuffy nose, denies sore throat EYES: Did have some intermittent bilateral blurry vision Resp: Denies cough, denies shortness of breath Cardiac: Denies chest pain GI: Denies abdominal pain, denies changes in bowel, denies nausea, denies vomiting : Denies changes in urination Extremity: Denies swelling MSK: Denies weakness Neuro: Reports some chronic right-sided weakness Heme: Denies any bleeding or bruising Skin: Denies rashes Psychiatric: No complaints voiced Vital Signs Vital Signs Vital Signs: 12/02/22 17:50 12/02/22 18:18 12/02/22 18:25 Temperature 97.8 F Temperature Source Temporal Pulse Rate 92 70 Respiratory Rate 18 24 H Blood Pressure 114/72 144/82 H Blood Pressure Mean 86 102 Blood Pressure Source Blood Pressure Position Blood Pressure Location Pulse Ox 100 100 100 Oxygen Delivery Method Room Air Room Air Room Air 12/02/22 18:42 12/02/22 18:42 12/02/22 18:48 Temperature Temperature Source Pulse Rate 65 65 Respiratory Rate 14 14 Blood Pressure 144/85 H 144/85 H 144/85 H Blood Pressure Mean 104 104 Blood Pressure Source Monitor Blood Pressure Position Semi-Fowlers Blood Pressure Location Left Arm Pulse Ox 100 100 Oxygen Delivery Method Room Air Room Air 12/02/22 19:03 12/02/22 19:00 12/02/22 19:15 Temperature Temperature Source Pulse Rate 61 65 60 Respiratory Rate 13 21 H 20 H Blood Pressure 136/80 H 136/80 H 125/81 H Blood Pressure Mean 98 98 95 Blood Pressure Source Monitor Monitor Blood Pressure Position Semi-Fowlers Semi-Fowlers Blood Pressure Location Left Arm Left Arm Pulse Ox 100 99 98 Oxygen Delivery Method Room Air Room Air Room Air 12/02/22 19:30 12/02/22 19:45 12/02/22 20:00 Temperature Temperature Source Pulse Rate 63 58 L 58 L Respiratory Rate 19 H 16 18 Blood Pressure 145/83 H 132/87 H 127/84 H Blood Pressure Mean 103 102 98 Blood Pressure Source Monitor Monitor Monitor Blood Pressure Position Semi-Fowlers Semi-Fowlers Semi-Fowlers Blood Pressure Location Left Arm Left Arm Left Arm Pulse Ox 99 100 98 Oxygen Delivery Method Room Air Room Air Room Air 12/02/22 20:05 12/02/22 20:15 12/02/22 20:30 Temperature Temperature Source Pulse Rate 58 L 59 L 59 L Respiratory Rate 13 19 H 22 H Blood Pressure 127/84 H 134/84 H 130/86 H Blood Pressure Mean 98 100 100 Blood Pressure Source Monitor Monitor Blood Pressure Position Semi-Fowlers Semi-Fowlers Blood Pressure Location Left Arm Left Arm Pulse Ox 98 98 98 Oxygen Delivery Method Room Air Room Air Room Air 12/02/22 20:45 12/02/22 21:00 12/02/22 21:14 Temperature Temperature Source Pulse Rate 55 L 60 60 Respiratory Rate 19 H 21 H 18 Blood Pressure 123/81 H 135/79 H 138/81 H Blood Pressure Mean 95 97 100 Blood Pressure Source Monitor Monitor Blood Pressure Position Semi-Fowlers Semi-Fowlers Blood Pressure Location Left Arm Left Arm Pulse Ox 98 99 98 Oxygen Delivery Method Room Air Room Air Room Air 12/02/22 21:15 12/02/22 21:27 Temperature 97.5 F L Temperature Source Temporal Pulse Rate 64 70 Respiratory Rate 17 17 Blood Pressure 131/78 H 131/78 H Blood Pressure Mean 95 95 Blood Pressure Source Monitor Blood Pressure Position Semi-Fowlers Blood Pressure Location Left Arm Pulse Ox 99 99 Oxygen Delivery Method Room Air Room Air Weight Weight: 61.7 kg Body Mass Index (BMI) 23.2 Physical Exam Narrative General: Alert, oriented, no apparent distress HEENT: Atraumatic, normocephalic Eyes: Anicteric, normal conjunctiva, patient refused to cooperate with extraocular movement as she said it makes her dizzy and this is chronic and unchanged, did not note any abnormalities based on limited exam available, pupils equal round Neck: Supple Respiratory: Clear to auscultation bilaterally, normal respiratory effort Cardiovascular: Regular rate and rhythm GI: Soft, nontender, nondistended Extremities: No edema Musculoskeletal: Would not allow strength testing in lower extremities due to reports of pain on both sides however was able to lift and hold both legs and had symmetric handgrip Neuro: Extraocular movements as above, was able to raise eyebrows symmetrically did have some left-sided mouth drooping when asked to smile and reported she had a hard time sticking her tongue out in any direction, was able to puff up her cheeks but did so asymmetrically, able to shrug both shoulders. [id number] without difficulty, no clonus and reflexes symmetric throughout, no other deficits appreciated within the realm of cooperation and exam Skin: No rashes appreciated Psych: Superficially cooperative Results Lab / Micro Data Result Diagrams: 12/03/22 03:30 12/03/22 03:30 Labs: Laboratory Results - last 24 hr 12/02/22 18:13: WBC 7.6, RBC 4.81, Hgb 15.0, Hct 44.5, MCV 92.5, MCH 31.2, MCHC 33.7, RDW Std Deviation 46.9 H, RDW Coeff of Yuly 13.5, Plt Count 357, MPV 8.6, Immature Gran % (Auto) 0.100, Neut % (Auto) 31.5 L, Lymph % (Auto) 55.2 H, [place] % (Auto) 6.4, Eos % (Auto) 5.5 H, Baso % (Auto) 1.3 H, Absolute Neuts (auto) 2.4, Absolute Lymphs (auto) 4.22, Nucleated RBC % 0 12/02/22 18:13: PT 13.1, INR 1.0, APTT 28.6 12/02/22 18:13: Sodium 140, Potassium 3.8, Chloride 108 H, Carbon Dioxide 25.0, Anion Gap 7, BUN 11, Creatinine 0.76, Estim Creat Clear Calc 80.72, Est GFR (MDRD) Af Amer 105, Est GFR (MDRD) Non-Af 87, BUN/Creatinine Ratio 14.4, Glucose 91, Calcium 9.2, Troponin I High Sens [address] 12/02/22 18:01 IMPRESSION: 1. Stable exam. 2. No intraparenchymal mass, hemorrhage, or acute territorial infarct. 3. No radiographically significant sinus disease. 4. Incidental note of partially sella. N.B. : The above Results were Read Back by Tej Salgado MD to Stew Chandler DO, and understanding confirmed on 12/02/2022 18:22:43 (ET). Electronically Signed: Tej Salgado MD at 18:26 EST , ADDENDUM: 12/02/22 1833 IMPRESSION: 1. Stable exam. 2. No intraparenchymal mass, hemorrhage, or acute territorial infarct. 3. No radiographically significant sinus disease. 4. Incidental note of partially sella. N.B. : The above Results were Read Back by Tej Salgado MD to Stew Chandler DO, and understanding confirmed on 12/02/2022 18:22:43 (ET). Electronically Signed: Tej Salgado MD at 18:26 EST , Head/Neck CTA 12/02/22 18:02 IMPRESSION: 1. Normal CTA examination the [place]. No focal stenosis occlusion or aneurysmal dilatation. No evidence of LVO or vascular malformation. 2. Normal CTA examination of the cervical carotid and vertebral circulation without stenosis occlusion or filling defect. Electronically Signed: Tej Salgado MD at 18:42 EST , Chest X-Ray 12/02/22 18:50 IMPRESSION: 1. No evidence of acute cardiopulmonary process Electronically Signed: Tej Salgado MD at 19:34 EST , Assessment & Plan Assessment/Plan (1) CVA (cerebral vascular accident): PLAN: Plan #Left lower facial droop with concerns for CVA status post tenecteplase Received tPA in ED after CT and CTA head and neck unrevealing Admit to ICU with post tenecteplase protocol MRI brain ordered for the a.m. with the as needed Ativan due to reports of claustrophobia Echocardiogram Given tenecteplase administration holding aspirin at this time, does have aspirin listed as an allergy with shortness of breath, may need to clarify further or discuss alternative options pending MRI results As needed medications for blood pressure PT/OT/speech SCDs Coags, lipid panel with LDL of 91 and triglycerides 115, TSH within normal limits We will add hemoglobin A1c #Fibromyalgia Continue gabapentin #Chronic GI upset Reports that she has ulcerative colitis and Crohn's disease but is not on a medication for this Based on GI note on 10/31/2022 appears there was consideration of a diagnosis of Crohn's disease but she reports she was unhappy with options and has refused and is looking for a new provider Supportive care, continue her PPI #DVT ppx: SCDs Sierra Haas MD Time spent in the patient's overall evaluation,decision-making process, review of diagnostic data, adjustment of management, discussion with other providers, nursing nursing and ancillary staff involved in patient's care documentation, 60 minutes Charges/Coding Visit Charges Inpatient E&M: 81223 Init Hosp L2
[2022-12-02] MEDS: Ondansetron 4 MG/2 ML Vial IV (22:37)
[2022-12-02] MEDS: Morphine 2 MG/ML Syringe IV (22:37)
[2022-12-03] VITALS (23 sets, daily range): BP systolic 102–134; BP diastolic 62–92; PULSE 51–78; RESP 13–20; TEMP 36.5–37.2; O2SAT 94–100; BMI 23.2
[2022-12-03 03:39] LABS: Absolute Lymphocyte Count 3.94 X10^3/uL (0.83-4.51); Absolute Neutrophil Count 2.7 X10^3/uL (2.0-7.7); Basophil# 0.07 X10^3/uL; Basophil% 0.9 % (0-1); Eosinophil# 0.41 X10^3/uL; Eosinophils% 5.3 % (0-5); Hemoglobin 12.8 g/dL (12.0-15.0); Lymphocyte # 3.94 X10^3/ul (0.83-4.51); Mean Corp Hgb Conc 32.8 g/dL (32-36); Mean Corpuscular Hgb 30.5 pg (27.0-32.0); Mean Corpuscular Volume 93.1 fL (81-99); Mean Platelet Vol. 8.6 fl (6.2-12.0); Monocyte# 0.56 X10^3/uL; Monocyte% 7.2 % (0-10); NRBC Flagged by Analyzer 0 % (0-5); Neutrophil # 2.74 X10^3/uL (2.7-7.7); Neutrophil % 35.5 % (47-70); Platelet Count 301 K/mm3 (150-450); RBC Distribution Width CV 13.5 % (11.6-14.6); RBC Distribution Width SD 46.2 fl (35.1-43.9); Red Blood Count 4.19 M/mm3 (4.2-5.4); White Blood Count 7.7 K/mm3 (4.4-11.0)
[2022-12-03 03:49] LABS: International Normalized Ratio 1.1; Prothrombin Time (Protime)PT. 13.7 SECONDS (11.7-14.9)
[2022-12-03 04:04] LABS: ALB/GLOB Ratio 0.9 RATIO (0.9-2.4); AST(SGOT) 8 U/L (15-37); Alanine Aminotransfer ALT/SGPT 13 U/L (13-56); Albumin, Serum 2.7 g/dL (3.2-5.0); Alkaline Phosphatase 80 U/L (45-117); Anion Gap 4 (5-15); BUN 9 mg/dL (7-18); BUN/Creat Ratio 14.2 RATIO (10-20); Chloride 112 mmol/L (98-107); Cholesterol 158 mg/dL (200); Creatinine, Serum 0.63 mg/dL (0.55-1.02); EST Glomerular Filtration Rate 108 mL/min (>60); Est Glom Filt Rate - Afr Amer 131 mL/min (>60); Estimated Creatinine Clearance 97.38 ml/min; Globulin 3.1 g/dL (2.2-4.2); Glucose 86 mg/dL (74-106); High Density Lipoprotein 44 mg/dL; Potassium 3.8 mmol/L (3.5-5.1); Protein, Total 5.8 g/dL (6.4-8.2); Sodium Level 141 mmol/L (136-145); Thyroid Stim Hormone (TSH) 3.65 uIU/mL (0.358-3.74); Triglycerides 115 mg/dL; Very Low Density Lipoprotein 23 mg/dL (5-40)
[2022-12-03] MEDS: 0.9% Normal Saline 1,000 ML 100 ML IV (05:08)
[2022-12-03] MEDS: Morphine 2 MG/ML Syringe IV (05:11)
--- NOTE | 2022-12-03 07:02 | CON.PCM.CC_ITS ---
Assessment & Plan Assessment/Plan (1) Stroke: (2) COPD (chronic obstructive pulmonary disease): QUALIFIERS: COPD type: unspecified COPD Qualified Code(s): J44.9 - Chronic obstructive pulmonary disease, unspecified (3) Crohn's disease: PLAN: Plan RECOMMENDATIONS: 1. Continue with post thrombolytic protocol 2. Zofran as needed for nausea 3. Okay to continue baseline medications from my perspective 4. Hemodynamically stable on room air. Will sign off from a critical care perspective IMPRESSIONS: 1. Acute CVA status post tenecteplase Patient appears to be responding well to therapy. NIH is gone from 8 to 2. Patient does continue to have a left facial droop. Patient does have a history of previous cerebrovascular events, so it is unclear how much of a change this is from baseline. Patient is not having any bleeding complications at this time. Patient appropriately has an echocardiogram and therapies ordered. Patient is scheduled to have an MRI for further delineation. We will continue to monitor for bleeding complications. There is no ecchymosis despite right elbow discomfort. 2. Fibromyalgia/Crohn's/reported COPD/chronic pain syndrome Complicates care, management, recovery and prognosis. Okay to continue with baseline medications from my perspective. Patient does not have signs or symptoms of a COPD exacerbation. Patient would likely benefit from a repeat outpatient evaluation for COPD as FEV1 was 59% in 2013 and patient continues to smoke. HPI Consult Data Date of Consult: 12/03/22 HPI Narrative Reason for Consultation: CVA status post thrombolytics HPI Narrative: AYAKA BRANTLEY is a 47 F, with past medical history listed below, who presents to [facility] on 12/02/2022 at approximately 7 PM secondary to 2 hours of slurred speech, expressive aphasia and left-sided w eakness. Patient reportedly had been talking on the phone with a family friend and noted to have symptoms. Patient denied any headaches or head trauma. No visual changes had been reported. Patient does have a history of previous TIAs and conversion disorder. In the ER, patient was afebrile, normotensive and saturating well on room air. Patient had a total NIH of 8 receiving points for motor defects, ataxia, aphasia and facial palsy. Stroke alert was initiated and patient CT of the head was unremarkable. No large vessel occlusion was noted. Laboratory work-up showed a white blood cell count of 7.6 with a hemoglobin of 15, normal coagulation studies and chemistries. Teleneurology recommended thrombolytic therapy, so patient was given tenecteplase and admitted to the intensive care unit. Since being in the intensive care unit, patient has reported some nausea, but deficits have significantly improved. Patient is not overly cooperative with exam, but most symptoms appear to have resolved. Patient is not cooperating with aphasia evaluation and still has a left facial droop. Patient does report some pain of the right elbow, but there is no ecchymosis or limitation in moveme nt. Patient does state that she fell a day or 2 ago. No loss of consciousness or head trauma was reported during this fall. Review of systems otherwise negative from a constitutional, HEENT, respiratory, cardiovascular, GI, genitourinary, musculoskeletal, skin, neurologic, psychiatric and hematologic system unless stated above. [facility] Medical History Anxiety Anxiety and depression Arthritis Asthma Back pain Cancer Conversion disorder Depression Difficulty swallowing Emphysema/COPD Fibromyalgia Gastric reflux History of edema History of pain when walking History of pseudoseizure History of TIAs Hypotension Injury of head and neck Irritable bowel syndrome Kidney stones Marijuana use Migraines Post-menopausal Shortness of breath on exertion Smoker Stroke/cerebrovascular accident Tobacco use Wears dentures Home Medications cholecalciferol (vitamin D3) 125 mcg (5,000 unit) disintegrating tablet 10,000 unit PO DAILY supplement 12/27/19 [History Last Taken 12/01/22] gabapentin 300 mg capsule 300 mg PO TID fibromyalgia/migraines 12/27/19 [History Last Taken 12/02/22] vitamin B complex 1 ea PO DAILY supplement 12/27/19 [History Last Taken 12/02/22] prazosin 2 mg capsule 2 mg PO QHS 09/20/20 [History Last Taken 12/01/22] tizanidine 4 mg capsule (Zanaflex) 4 mg PO QHS 09/20/20 [History Last Taken 12/01/22] multivitamin (Multiple Vitamins tablet) 1 tab PO DAILY 07/01/21 [History Last Taken 12/02/22] promethazine 12.5 mg tablet 12.5 mg PO PRN PRN Nausea 07/01/21 [History Last Taken 11/30/22] turmeric root extract 1,053 mg tablet 1,076 mg PO DAILY 07/01/21 [History Last Taken 12/01/22] vitamin E (dl, acetate) 45 mg (100 unit) capsule 45 mg PO DAILY 07/01/21 [History Last Taken 12/01/22] albuterol sulfate 90 mcg/actuation aerosol inhaler 2 puff inhalation Q6H PRN ASTHMA 08/12/22 [History Last Taken Unknown] levocetirizine 5 mg tablet (Allergy Relief (levocetirizine)) 5 mg PO QPM PRN ALLERGIES 08/12/22 [History Last Taken 12/01/22] triamcinolone acetonide 55 mcg nasal spray aerosol 2 spray intranasal DAILY PRN ALLERGIES 08/12/22 [History Last Taken 11/25/22] biotin 10 mg tablet 10 mg PO DAILY 10/15/22 [History Last Taken 12/02/22] fludrocortisone 0.1 mg tablet 0.1 mg PO DAILY 10/15/22 [History Last Taken 12/01/22] loperamide 2 mg capsule 2 mg PO Q6H PRN PRN Diarrhea 10/15/22 [History Last Taken 12/01/22] pantoprazole 40 mg tablet,delayed release 40 mg PO BID #180 tabs 10/27/22 [Rx Last Taken 12/02/22] fremanezumab-vfrm 225 mg/1.5 mL subcutaneous syringe (Ajovy Syringe) 225 mg subcut QMONTH JUDD 12/02/22 [History Last Taken 11/03/22] Allergy/AdvReac Type Severity Reaction Status Date / Time bee pollen Allergy Severe Anaphylaxis Verified 12/02/22 17:49 coconut Allergy Intermediate Eye Verified 12/02/22 17:49 swelling, Rash egg Allergy Mild Rash, GI Verified 12/02/22 17:49 cramping aspirin Allergy Shortness Verified 12/02/22 17:49 of breath bupropion HCl Allergy Other Verified 12/02/22 17:49 [From Wellbutrin] divalproex sodium Allergy Rash Verified 12/02/22 17:49 [From Depakote] doxycycline Allergy Rash Verified 12/02/22 17:49 Gadolinium-MRI Contrast Allergy Hives Verified 12/02/22 17:49 Medium [Gadolinium-Contrast Medium - MRI] lamotrigine [From Lamictal] Allergy Rash Verified 12/02/22 17:49 latex Allergy Hives Verified 12/02/22 17:49 phenytoin sodium Allergy Hives Verified 12/02/22 17:49 [From Dilantin] phenytoin sodium extended Allergy Hives Verified 12/02/22 17:49 [From Dilantin] pineapple Allergy Swelling, Verified 12/02/22 17:49 Rash erythromycin base AdvReac Nausea/Vom/ Verified 12/02/22 17:49 Diarrhea quetiapine fumarate AdvReac Other Verified 12/02/22 17:49 [From Seroquel] Sulfa (Sulfonamide AdvReac Vomiting Verified 12/02/22 17:49 Antibiotics) varenicline tartrate AdvReac Vomiting Verified 12/02/22 17:49 [From Chantix] Family History Mother Diabetes Heart disease Hypertension HLD (hyperlipidemia) Father Diabetes Heart disease Hypertension HLD (hyperlipidemia) Surgical History H/O section H/O knee surgery History of cholecystectomy History of dilation and curettage Hx of tooth extraction S/P partial hysterectomy Social History adopted: Yes household members: none housing: house current occupational status: disabled Smoking Status: Current every day smoker tobacco type: cigarettes alcohol intake: never substance use type: marijuana what type of physical activity do you participate in: other details: home exercises, fishing do you feel safe at home: Yes ROS ROS Narrative See HPI Physical Exam Const alert, oriented x3 and no apparent distress General Appearance: cooperative and well developed HEENT normocephalic, head/scalp atraumatic and moist oral mucous membranes Eyes PERRL, EOMs intact bilaterally, conjunctivae normal and no scleral icterus Neck full ROM and no lymphadenopathy Chest inspection of chest normal Resp normal respiratory effort and no use of accessory muscles Effort and Inspection: able to speak in complete sentences Auscultation: clear to auscultation bilaterally; Negative for rales, rhonchi or wheezes Percussion: Negative for dullness Cardio regular rate, regular rhythm, S1 normal heart sound, S2 normal heart sound, no murmurs, no rub and no gallops GI normal to inspection, nondistended, normoactive bowel sounds no CVA tenderness Extremity no clubbing, cyanosis or edema Skin no rashes or lesions noted Neuro Neuro Narrative: Left facial droop noted. No obvious expressive aphasia or dysarthria. Psych Activity / Motor Behavior: restless Mood & Affect: anxious Medical Records Data Attestation: I reviewed the patient's medical records Lab / Micro Data Attestation: I reviewed the patient's lab results. Result Diagrams: 12/03/22 03:30 12/03/22 03:30 Labs: Laboratory Results - last 24 hr 12/02/22 18:13: WBC 7.6, RBC 4.81, Hgb 15.0, Hct 44.5, MCV 92.5, MCH 31.2, MCHC 33.7, RDW Std Deviation 46.9 H, RDW Coeff of Yuly 13.5, Plt Count 357, MPV 8.6, Immature Gran % (Auto) 0.100, Neut % (Auto) 31.5 L, Lymph % (Auto) 55.2 H, [place] % (Auto) 6.4, Eos % (Auto) 5.5 H, Baso % (Auto) 1.3 H, Absolute Neuts (auto) 2.4, Absolute Lymphs (auto) 4.22, Nucleated RBC % 0 12/02/22 18:13: PT 13.1, INR 1.0, APTT 28.6 12/02/22 18:13: Sodium 140, Potassium 3.8, Chloride 108 H, Carbon Dioxide 25.0, Anion Gap 7, BUN 11, Creatinine 0.76, Estim Creat Clear Calc 80.72, Est GFR ( RD) Af Amer 105, Est GFR (MDRD) Non-Af 87, BUN/Creatinine Ratio 14.4, Glucose 91, Calcium 9.2, Troponin I High Sens 3 12/03/22 03:30: PT 13.7, INR 1.1 12/03/22 03:30: Sodium 141, Potassium 3.8, Chloride 112 H, Carbon Dioxide 25.0, Anion Gap 4 L, BUN 9, Creatinine 0.63, Estim Creat Clear Calc 97.38, Est GFR (MDRD) Af Amer 131, Est GFR (MDRD) Non-Af 108, BUN/Creatinine Ratio 14.2, Glucose 86, Calcium 8.0 L, Total Bilirubin 0.50, AST 8 L, ALT 13, Alkaline Phosp hatase 80, Total Protein 5.8 L, Albumin 2.7 L, Globulin 3.1, Albumin/Globulin Ratio 0.9, Triglycerides 115, Cholesterol 158, LDL Cholesterol 91, VLDL Chol esterol 23, HDL Cholesterol 44, TSH 3.65 12/03/22 03:30: WBC 7.7, RBC 4.19 L, Hgb 12.8, Hct 39.0, MCV 93.1, MCH 30.5, MCHC 32.8, RDW Std Deviation 46.2 H, RDW Coeff of Yuly 13.5, Plt Count 301, MPV 8.6, Immature Gran % (Auto) 0.100, Neut % (Auto) 35.5 L, Lymph % (Auto) 51.0 H, [place] % (Auto) 7.2, Eos % (Auto) 5.3 H, Baso % (Auto) 0.9, Absolute Neuts (auto) 2.7, Absolute Lymphs (auto) 3.94, Nucleated RBC % [address] 12/02/22 18:01 IMPRESSION: 1. Stable exam. 2. No intraparenchymal mass, hemorrhage, or acute territorial infarct. 3. No radiographically significant sinus disease. 4. Incidental note of partially sella. N.B. : The above Results were Read Back by Tej Salgado MD to Stew Chandler DO, and understanding confirmed on 12/02/2022 18:22:43 (ET). Electronically Signed: Tej Salgado MD at 18:26 EST , ADDENDUM: 12/02/22 1833 IMPRESSION: 1. Stable exam. 2. No intraparenchymal mass, hemorrhage, or acute territorial infarct. 3. No radiographically significant sinus disease. 4. Incidental note of partially sella. N.B. : The above Results were Read Back by Tej Salgado MD to Stew Chandler DO, and understanding confirmed on 12/02/2022 18:22:43 (ET). Electronically Signed: Tej Salgado MD at 18:26 EST , Head/Neck CTA 12/02/22 18:02 IMPRESSION: 1. Normal CTA examination the [place] of [place]. No focal stenosis occlusion or aneurysmal dilatation. No evidence of LVO or vascular malformation. 2. Normal CTA examination of the cervical carotid and vertebral circulation without stenosis occlusion or filling defect. Electronically Signed: Tej Salgado MD at 18:42 EST , Chest X-Ray 12/02/22 18:50 IMPRESSION: 1. No evidence of acute cardiopulmonary process Electronically Signed: Tej Salgado MD at 19:34 EST , Charges/Coding Visit Charges Inpatient E&M: 95700 Init Hosp L2
[2022-12-03] MEDS: Ondansetron 4 MG/2 ML Vial IV ×2 (07:08→15:18)
--- NOTE | 2022-12-03 07:32 | PCM.PN.HOSP ---
Reason for Visit Reason for Visit: Diagnoses Cerebral infarction, unspecified (12/02/22) Subjective Subjective Follow-up for acute ischemic stroke status post tPA, tenecteplase Objective Data Objective Data Vital Signs: Vital Signs Temp Pulse Resp BP Pulse Ox O2 Del Method 97.7 F L 53 L 18 117/69 98 Room Air 12/03/22 00:00 12/03/22 07:00 12/03/22 07:00 12/03/22 07:00 12/03/22 07:22 12/03/22 07:22 Oxygen Delivery Method Room Air Weight: 132 lb 11.492 oz Body Mass Index (BMI) 23.2 Intake & Output: Intake and Output for Last 24 Hours 12/01/22 12/02/22 12/03/22 23:59 23:59 23:59 Intake Total 1000 / 1000 Output Total 500 / 500 Balance 500 / 500 Lab / Micro Data Result Diagrams: 12/03/22 03:30 12/03/22 03:30 Labs: Laboratory Results - last 24 hr 12/02/22 18:13: WBC 7.6, RBC 4.81, Hgb 15.0, Hct 44.5, MCV 92.5, MCH 31.2, MCHC 33.7, RDW Std Deviation 46.9 H, RDW Coeff of Yuly 13.5, Plt Count 357, MPV 8.6, Immature Gran % (Auto) 0.100, Neut % (Auto) 31.5 L, Lymph % (Auto) 55.2 H, [place] % (Auto) 6.4, Eos % (Auto) 5.5 H, Baso % (Auto) 1.3 H, Absolute Neuts (auto) 2.4, Absolute Lymphs (auto) 4.22, Nucleated RBC % 0 12/02/22 18:13: PT 13.1, INR 1.0, APTT 28.6 12/02/22 18:13: Sodium 140, Potassium 3.8, Chloride 108 H, Carbon Dioxide 25.0, Anion Gap 7, BUN 11, Creatinine 0.76, Estim Creat Clear Calc 80.72, Est GFR (MDRD) Af Amer 105, Est GFR (MDRD) Non-Af 87, BUN/Creatinine Ratio 14.4, Glucose 91, Calcium 9.2, Troponin I High Sens 3 12/03/22 03:30: PT 13.7, INR 1.1 12/03/22 03:30: Sodium 141, Potassium 3.8, Chloride 112 H, Carbon Dioxide 25.0, Anion Gap 4 L, BUN 9, Creatinine 0.63, Estim Creat Clear Calc 97.38, Est GFR (MDRD) Af Amer 131, Est GFR (MDRD) Non-Af 108, BUN/Creatinine Ratio 14.2, Glucose 86, Calcium 8.0 L, Total Bilirubin 0.50, AST 8 L, ALT 13, Alkaline Phosphatase 80, Total Protein 5.8 L, Albumin 2.7 L, Globulin 3.1, Albumin/Globulin Ratio 0.9, Triglycerides 115, Cholesterol 158, LDL Cholesterol 91, VLDL Cholesterol 23, HDL Cholesterol 44, TSH 3.65 12/03/22 03:30: WBC 7.7, RBC 4.19 L, Hgb 12.8, Hct 39.0, MCV 93.1, MCH 30.5, MCHC 32.8, RDW Std Deviation 46.2 H, RDW Coeff of Yuly 13.5, Plt Count 301, MPV 8.6, Immature Gran % (Auto) 0.100, Neut % (Auto) 35.5 L, Lymph % (Auto) 51.0 H, [place]bert % (Auto) 7.2, Eos % (Auto) 5.3 H, Baso % (Auto) 0.9, Absolute Neuts (auto) 2.7, Absolute Lymphs (auto) 3.94, Nucleated RBC % 0 Radiography Diagnostic Testing: Radiology Impression Brain CT 12/02/22 18:01 IMPRESSION: 1. Stable exam. 2. No intraparenchymal mass, hemorrhage, or acute territorial infarct. 3. No radiographically significant sinus disease. 4. Incidental note of partially sella. Head/Neck CTA 12/02/22 18:02 IMPRESSION: 1. Normal CTA examination the [place]. No focal stenosis occlusion or aneurysmal dilatation. No evidence of LVO or vascular malformation. 2. Normal CTA examination of the cervical carotid and vertebral circulation without stenosis occlusion or filling defect. Electronically Signed: Tej Salgado MD at 18:42 EST , Chest X-Ray 12/02/22 18:50 IMPRESSION: 1. No evidence of acute cardiopulmonary process Electronically Signed: Tej Salgado MD at 19:34 EST , Physical Exam Narrative Patient stated she had previous stroke in February 2022 and was left with severe language aphasia could not speak and right-sided weakness. Her speech is much improved and right-sided weakness resolved. This time admitted with slurred speech, word finding difficulty and left-sided facial droop IV tPA was given. Patient also has psychiatric disorder of anxiety, depression, possible conversant disorder, pseudoseizure and fibromyalgia. Physical exam General: Alert, Oriented x3, Cooperative HEENT: Left-sided facial droop. Atraumatic, PERRLA, EOMI, Normocephalic Oral: No Gingival or Mucosal Lesions/ Ulcerations Neck: Supple, No JVD, Negative Carotid Bruits Lungs: Air entry diminished in bilateral lung bases. No crepitation/rhonchi Cardiovascular: Regular rate, Regular Rhythm, Normal S1, Normal S2, No murmurs Abdomen: Bowel Sounds Present, Soft, Non Tender, Non-Distended : No renal angle tenderness. No suprapubic tenderness. Extremities: No edema, Capillary Refill Less than 3 Seconds Skin: No rashes, No breakdown Musculoskeletal: No Tenderness to Palpation of Joints or Extremities. ROM intact. Neurological: Speech improved, NIH 1 for mild language deficit. Left-sided facial droop. Psych/Mental Status: Flat affect. Assessment & Plan Assessment/Plan (1) CVA (cerebral vascular accident): PLAN: Plan This is a 47-year-old female admitted to ICU after 2 hours of slurred speech, expressive aphasia and left-sided weakness, unremarkable CT head, found consistent with ischemic stroke. CTA shows no large vessel occlusion. Teleneurology recommended thrombolytic therapy. #Right-sided ischemic stroke status post tenecteplase: Patient is being admitted in ICU after tenecteplase. Stroke protocol with NIH stroke, BP and glucose monitoring. MRI brain is ordered. Patient refused for 2D echo as she states her heart is strong and all previous echoes were normal. Patient has allergic to aspirin with shortness of breath. PT OT and speech evaluation. Lipid panel LDL 91 triglycerides 115. TSH normal.INR normal. A1c 4.7 #Fibromyalgia Continue gabapentin #Chronic GI upset: Patient had colonoscopy which showed in October 2022 reported congested mucosa in sigmoid colon, transverse and ascending colon biopsied. He was ulcer in distal ileum overall suggestive of possible Crohn's disease. She was not happy with the options Dr. Andrade provided and looking for a new provider in. She did not want any medication for that Supportive care, continue her PPI #History of psychiatric problems including anxiety, depression, pseudoseizures, conversion disorder. Patient also has fibromyalgia. DVT ppx: SCDs Laboratory Results 12/02/22 18:04: POC Glucose 83 12/02/22 18:13: WBC 7.6, RBC 4.81, Hgb 15.0, Hct 44.5, MCV 92.5, MCH 31.2, MCHC 33.7, RDW Std Deviation 46.9 H, RDW Coeff of Yuly 13.5, Plt Count 357, MPV 8.6, Immature Gran % (Auto) 0.100, Neut % (Auto) 31.5 L, Lymph % (Auto) 55.2 H, [place] % (Auto) 6.4, Eos % (Auto) 5.5 H, Baso % (Auto) 1.3 H, Absolute Neuts (auto) 2.4, Absolute Lymphs (auto) 4.22, Nucleated RBC % 0 12/02/22 18:13: PT 13.1, INR 1.0, APTT 28.6 12/02/22 18:13: Sodium 140, Potassium 3.8, Chloride 108 H, Carbon Dioxide 25.0, Anion Gap 7, BUN 11, Creatinine 0.76, Estim Creat Clear Calc 80.72, Est GFR (MDRD) Af Amer 105, Est GFR (MDRD) Non-Af 87, BUN/Creatinine Ratio 14.4, Glucose 91, Calcium 9.2, Troponin I High Sens 3 12/03/22 03:30: PT 13.7, INR 1.1 12/03/22 03:30: Sodium 141, Potassium 3.8, Chloride 112 H, Carbon Dioxide 25.0, Anion Gap 4 L, BUN 9, Creatinine 0.63, Estim Creat Clear Calc 97.38, Est GFR (MDRD) Af Amer 131, Est GFR (MDRD) Non-Af 108, BUN/Creatinine Ratio 14.2, Glucose 86, Calcium 8.0 L, Total Bilirubin 0.50, AST 8 L, ALT 13, Alkaline Phosphatase 80, Total Protein 5.8 L, Albumin 2.7 L, Globulin 3.1, Albumin/Globulin Ratio 0.9, Triglycerides 115, Cholesterol 158, LDL Cholesterol 91, VLDL Cholesterol 23, HDL Cholesterol 44, TSH 3.65 12/03/22 03:30: WBC 7.7, RBC 4.19 L, Hgb 12.8, Hct 39.0, MCV 93.1, MCH 30.5, MCHC 32.8, RDW Std Deviation 46.2 H, RDW Coeff of Yuly 13.5, Plt Count 301, MPV 8.6, Immature Gran % (Auto) 0.100, Neut % (Auto) 35.5 L, Lymph % (Auto) 51.0 H, [place] % (Auto) 7.2, Eos % (Auto) 5.3 H, Baso % (Auto) 0.9, Absolute Neuts (auto) 2.7, Absolute Lymphs (auto) 3.94, Nucleated RBC % 0 12/03/22 03:30: Hemoglobin A1c 4.7 Charges/Coding Visit Charges Inpatient E&M: 50433 Subs Hosp L3
[2022-12-03 08:05] LABS: Hemoglobin A1c 4.7 % (3.8-5.6)
[2022-12-03 08:40] LABS: Bedside Glucose 83 mg/dL (74-106)
[2022-12-03] MEDS: Fludrocortisone Acetate 0.1 MG Tablet PO (10:42)
[2022-12-03] MEDS: Pantoprazole Sodium 40 MG Tablet PO (10:42)
--- NOTE | 2022-12-03 13:36 | CM.ED ---
Per RN CM patient is on bedrest with TPA and thus no MRI has been done at this time. Patient will not be off bedrest till later tonight. Cassidy SALCEDO
--- NOTE | 2022-12-03 16:10 | CASEMGMT ---
BRUNA VELAZQUEZ BONE WORKER CM to room to meet with patient for initial transition planning/care coordination assessment. BRUNA VELAZQUEZ introduced self and role at [facility].? Pt voices understanding and consents to assessment at this time.? Pt resting in bed in no distress at this time.? Pt is A/O at this time and answers all questions appropriately.?? Care providers, pharmacy, and demographics verified/updated at this time. PCP: Tej Whitehead, [employer] PROFESSOR Specialists: Dr Garibay-[facility] Neuro, Dr Veronica-pain mgmt in [place], Dr Farmer-pain [place] Preferred Pharmacy: [facility] Insurance: [employer] [facility] Prescription Benefit:? Yes Living Will/HPOA:? Pt states she does not think she has a LW, but she is not sure. She has a HCPOA, who is her friend, Debra Clifford LNOK: Debra/ОЛЕГJaved, friend. Friend and aide, Tonia Powers. Pt also has a sister. Living Arrangements: Lives alone in 2nd floor apt / total steps to enter. Pt states when she goes down them, she scoots on her buttocks. She has a CM, Aurora, from [facility] and aides from [employer] (she thinks) M-F for 3 hrs each day. She states she only bathes when the aide is present, she sits on a cart to get dressed when home alone, and microwaves her meals. She gets home delivered meals thru [employer]-2 meals/day. Transportation: Pt states she has not been cleared to drive yet. She states either her friend/POA, Debra, or her sister will take her home @ d/c. DME: ? States has the following DME:? shower chair, cane, hand held shower, nebulizer, and medical alert button. She used to have a walker but states she got rid of it, stating, I won't use one. Pt states no need for further DME at this time.? HHC/SNF: No hx of SNF. [facility] Pt states, I'll never use them again. 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 She states she does daily exercises they gave her and her home health aide has also been assisting her w/therapy and exercises. Pt declines wanting BRUNA VELAZQUEZ to set up HHC thru another agency at this time. She was made aware, if she decides she wants HHC once she returns home, to discuss this with her PCP. She voices understanding. Pt wishes to return home and states has no further concerns with going home at time of discharge.? Pt states if her MRI this evening comes back negative, that she is going home. She was made aware therapy is ordered to evaluate her for safety after bedrest is complete, but that they will not still here at that time tonight. Pt stated, I'm going home no matter what. I have responsibilities. RNEusebia, made aware. CM to follow for any further discharge planning/needs.? Pt voices no further concerns/needs at this time.? PLAN: ?Home w/resumption of home health aides MRI pending. PT/OT evals pending. Pablo HE RN, CM
[2022-12-03] MEDS: LORazepam 2 MG/ML Syringe 1 MG IV (16:12)
--- NOTE | 2022-12-03 16:45 | MRI_ITS ---
EXAM: MR HEAD WITHOUT INTRAVENOUS CONTRAST CLINICAL INDICATION: CVA -- MRI 24 hours after IV thrombolytic administration TECHNIQUE: Multiplanar and multisequence MR images of the brain were obtained without intravenous contrast. This report was created using [employer] report generation technology. COMPARISON: 12.02.22 ct FINDINGS: BRAIN AND EXTRA-AXIAL SPACES: Unremarkable. No intra- or extra-axial hemorrhage. No evidence of acute infarct. No intracranial mass or mass effect. There is preservation of the [place]/white matter interface. Posterior fossa structures are unremarkable. Ventricles are appropriate for age. No hydrocephalus. Basal cisterns are patent. SELLA: Unremarkable. Normal sella turcica, pituitary gland, infundibular stalk, optic chiasm and hypothalamus. AUDITORY SYSTEM: Unremarkable. The internal auditory canals are patent. BONES/JOINTS: Unremarkable. No discrete lytic or blastic abnormalities. SINUSES: Unremarkable as visualized. Clear. MASTOID AIR CELLS: Left mastoid air cell disease. ORBITS: Unremarkable as visualized. Both globes, extraocular muscles, optic nerves and retrobulbar fat appear unremarkable. VASCULATURE: Unremarkable as visualized. Normal flow voids in the major intracranial circulation. MRI/Brain without Contrast IMPRESSION: No acute findings in the head/brain. Electronically Signed: Terrell Mckay MD at 18:09 EST ,
--- NOTE | 2022-12-03 18:45 | NURSING ---
PT LEFT AMA. EDUCATED ON RISKS AND IMPORTANCE TO STAY AND DR NOT AGREEABLE TO DISCHARGE AT THIS TIME. PT VOICES UNDERSTANDING. CALLED FOR RIDE HOME.
--- NOTE | 2022-12-03 20:12 | CM.ED ---
KAREN Note SW called ICU after reviewing patient's MRI and staff indicated that they thought patient had been diagnosed with stroke. Per staff on ICU patient is leaving AMA. KAREN went to patient's room and met with patient. Patient said she is not depressed and does not need counseling. Patient refused to do the PHQ9 and refused resource information. Patient said let me guess my friends called you as they think I need psych as I want to leave. SW explained that patients are given the PHQ9 to determine if they have depression. Patient voiced again she is not depressed. Patient said that she is ready to leave and wants to be walked down. KAREN had Polly RN in ED review MRI. Patient did not have stroke. Patient declined doing PHQ9 and resources. Left MARTHAA Cassidy SALCEDO
--- NOTE | 2022-12-04 07:04 | PCM.DC.SUM ---
Providers Date of Admission: 12/02/22 Date of Discharge: 12/03/22 Primary Care Physician: Tej Whitehead, MAURA-Adam Consultations 12/02/22 22:04 Consult: Marine Electronics Repairer / Pulmonary Medicine Routine Consulting Provider: Pulmonary Medicine emiliano Blackwell Reason for Consult: s/p tpa EMERGENT Consult: No MD Notified: Yes Date Notified: 12/02/22 Time Notified: 21:51 Method of Notification: Text Reason For Visit: CVA S/P TPA Diagnosis Discharge Diagnosis (1) CVA (cerebral vascular accident): Status: Acute Code(s): I63.9 - Cerebral infarction, unspecified Plan This is a 47-year-old female admitted to ICU after 2 hours of slurred speech, expressive aphasia and left-sided weakness, unremarkable CT head, found consistent with ischemic stroke. CTA shows no large vessel occlusion. Teleneurology recommended thrombolytic therapy. #Right-sided ischemic stroke status post tenecteplase: Patient is being admitted in ICU after tenecteplase. Stroke protocol with NIH stroke, BP and glucose monitoring. MRI brain is ordered. Patient refused for 2D echo as she states her heart is strong and all previous echoes were normal. Patient has allergic to aspirin with shortness of breath. PT OT and speech evaluation. Lipid panel LDL 91 triglycerides 115. TSH normal.INR normal. A1c 4.7 MRI brain was done reported no acute findings in the head or brain.Patient wants to go home at night and work-up not complete regarding discharge planning possible outpatient rehab. She signed AMA about 8:15 PM #Fibromyalgia Continue gabapentin #Chronic GI upset: Patient had colonoscopy which showed in October 2022 reported congested mucosa in sigmoid colon, transverse and ascending colon biopsied. He was ulcer in distal ileum overall suggestive of possible Crohn's disease. She was not happy with the options Dr. Andrade provided and looking for a new provider in. She did not want any medication for that Supportive care, continue her PPI #History of psychiatric problems including anxiety, depression, pseudoseizures, conversion disorder. Patient also has fibromyalgia. DVT ppx: SCDs Patient signed AMA. Medications at Discharge Home Medications cholecalciferol (vitamin D3) 125 mcg (5,000 unit) disintegrating tablet 10,000 unit PO DAILY supplement 12/27/19 gabapentin 300 mg capsule 300 mg PO TID fibromyalgia/migraines 12/27/19 vitamin B complex 1 ea PO DAILY supplement 12/27/19 prazosin 2 mg capsule 2 mg PO QHS 09/20/20 tizanidine 4 mg capsule (Zanaflex) 4 mg PO QHS 09/20/20 multivitamin (Multiple Vitamins tablet) 1 tab PO DAILY 07/01/21 promethazine 12.5 mg tablet 12.5 mg PO PRN PRN Nausea 07/01/21 turmeric root extract 1,053 mg tablet 1,076 mg PO DAILY 07/01/21 vitamin E (dl, acetate) 45 mg (100 unit) capsule 45 mg PO DAILY 07/01/21 albuterol sulfate 90 mcg/actuation aerosol inhaler 2 puff inhalation Q6H PRN ASTHMA 08/12/22 levocetirizine 5 mg tablet (Allergy Relief (levocetirizine)) 5 mg PO QPM PRN ALLERGIES 08/12/22 triamcinolone acetonide 55 mcg nasal spray aerosol 2 spray intranasal DAILY PRN ALLERGIES 08/12/22 biotin 10 mg tablet 10 mg PO DAILY 10/15/22 fludrocortisone 0.1 mg tablet 0.1 mg PO DAILY 10/15/22 loperamide 2 mg capsule 2 mg PO Q6H PRN PRN Diarrhea 10/15/22 pantoprazole 40 mg tablet,delayed release 40 mg PO BID #180 tabs 10/27/22 fremanezumab-vfrm 225 mg/1.5 mL subcutaneous syringe (Ajovy Syringe) 225 mg subcut QMONTH JUDD 12/02/22 Physical Exam Narrative Please see physical exam finding and progress note of the same date. Weight / BMI Weight Weight: 132 lb 11.492 oz Body Mass Index (BMI) 23.2 ABG / Lab / Microbiology Data Result Diagrams: 12/03/22 03:30 12/03/22 03:30 Laboratory: Laboratory Results - last 24 hr 12/02/22 18:04: POC Glucose 83 12/03/22 03:30: Hemoglobin A1c 4.7 Radiography Diagnostic Testing: Radiology Impression Brain MRI 12/03/22 16:45 IMPRESSION: No acute findings in the head/brain. Electronically Signed: Terrell Mckay MD at 18:09 EST , Meaningful Use Info Meaningful Use Diagnoses (Choose all that apply): None applicable Discharge Plan Admission Admit Date/Time: 12/02/22 21:47 Primary Reason for Your Visit: Acute ischemic stroke Attending Provider: Alphonse Santos Primary Care Provider: Tej Whitehead NP Consulting Providers: Stephen Cantu ; Leonard Saunders ; Sathya Hilario ; Delroy Walls ; Raquel Sandra NP ; Sierra Haas Discharge Orders/Prescriptions Prescriptions: No Action vitamin E (dl, acetate) 45 mg (100 unit) capsule 45 mg PO DAILY turmeric root extract 1,053 mg tablet 1,076 mg PO DAILY multivitamin [Multiple Vitamins] Tablet 1 tab PO DAILY promethazine 12.5 mg tablet 12.5 mg PO PRN PRN (Reason: Nausea) levocetirizine [Allergy Relief (levocetirizin)] 5 mg tablet 5 mg PO QPM PRN (Reason: ALLERGIES) triamcinolone acetonide 55 mcg aerosol,spray 2 spray intranasal DAILY PRN (Reason: ALLERGIES) Rx Instructions: administer into each nostril albuterol sulfate 90 mcg/actuation HFA aerosol inhaler 2 puff inhalation Q6H PRN (Reason: ASTHMA) gabapentin 300 MG capsule 300 mg PO TID cholecalciferol (vitamin D3) 5,000 UNIT tablet,disintegrating 10,000 unit PO DAILY vitamin B complex 1 EACH tablet 1 ea PO DAILY prazosin 2 MG capsule 2 mg PO QHS tizanidine [Zanaflex] 4 MG capsule 4 mg PO QHS biotin 10 mg Tablet 10 mg PO DAILY loperamide 2 mg capsule 2 mg PO Q6H PRN PRN (Reason: Diarrhea) Label Comments: TAKE 1 CAPSULE BY MOUTH EVERY 6 HOURS NEEDED for abdominal pain/diarrhea. max EIGHT capsules in 24 hours. fludrocortisone 0.1 mg tablet 0.1 mg PO DAILY Label Comments: TAKE 1 TABLET BY MOUTH EVERY DAY Ajovy Syringe 225 mg/1.5 mL syringe 225 mg SUBCUT QMONTH pantoprazole 40 mg tablet,delayed release (DR/EC) 40 mg PO BID Qty: 180 0RF Referrals / Follow Up: Tej Whitehead NP, STAMP COLLECTOR-C [Primary Care Provider] - Steven Jacob MD [Non-Staff -Ordering Privileges] - Within 2 Weeks Disposition Disposition (needs filled in before D/C Order can be placed): Against Medical Advice Charges/Coding Visit Charges Inpatient E&M: 74066 Disch Hosp
== END 2022-12-03 20:22 | disposition left against medical advice (07) | DRG 62 ==
LOC: ED 21:20 → ICU 21:39
PROVIDERS: Admitting Provider Internal Medicine; Emergency Provider Emergency Medicine; PCP Nurse Practitioner Family; Visit Provider Internal Medicine
DX: I63.9 Cerebral infarction, unspecified (principal); G81.94 Hemiplegia, unspecified affecting left nondominant side; K50.00 Crohn's disease of small intestine without complications; F44.4 Conversion disorder with motor symptom or deficit; J43.9 Emphysema, unspecified; F17.210 Nicotine dependence, cigarettes, uncomplicated; M79.7 Fibromyalgia; I69.320 Aphasia following cerebral infarction; R47.81 Slurred speech; R29.810 Facial weakness; R29.702 NIHSS score 2; R29.708 NIHSS score 8; Z53.29 Procedure and treatment not carried out because of patient's decision for other reasons
CPT/HCPCS: 51702; 70450; 70496; 70498; 70551; 71045; 80048; 80053; 80061; 82962; 83036; 84443; 84484; 85025; 85610; 85730; 92610; 93005; 99285; J3101; J7030; Q9967; A4216; J2405

== ENCOUNTER 2023-02-23 09:44 | Day surgery (SDC) | payer MEDICARE, MEDICAID, SELFPAY ==
[2023-02-23] VITALS (7 sets, daily range): BP systolic 93–106; BP diastolic 54–67; PULSE 59–85; RESP 16–18; TEMP 36.6–37.2; O2SAT 100; BMI 22.1
--- NOTE | 2023-02-23 | GASB_PTH ---
PATIENT: AYAKA BRANTLEY LOC: EN U#:[id number] AGE/SX: 47/F ROOM: RE02/23/[address]: Dr. Anoop Andrade DO : 1975 BED: DIS: 02/23/2023 SPEC #: [id number] RECD: 02/23/23 14:16 STATUS: PRETTY RETommy #: [id number] LEXX: 02/23/23 00:[address]: Anoop Andrade DEPT: SURGICAL PATHOLOGY RECD BY: Sea Deluna ENTERED: 02/24/23 11:55 SP TYPE: Gastric Bx OTHR DR: Tej Whitehead, EXTRACTOR OPERATOR SOLVENT PROCESS-C Tissues: A - Gastric mucous membrane B - Esophageal mucous membrane Procedures: Surgery Specimen Level IV HEADER OPERATION: EGD ([place]) PRE-OP DIAGNOSIS: Crohn?s disease, H. pylori infection TISSUE SUBMITTED: A ? Gastric antrum biopsy for H. pylori and path, B ? Random esophagus biopsy MICROSCOPIC DIAGNOSIS A. Gastric antrum, biopsy: Chronic gastritis. See comment. B. Esophagus, random biopsy: Consistent with eosinophilic esophagitis. See comment. AM:maryam 02/25/2023 COMMENT A. The results of immunohistochemistry for Helicobacter pylori will be reported separately ([id number]). B. Eosinophils number greater than 20 in 1 high power field. MICROSCOPIC DESCRIPTION Slides are reviewed. GROSS DESCRIPTION A - Received in fixative is one container labeled with the patient's name and designated antrum biopsy. The specimen consists of multiple irregular fragments of light smyth soft tissue that in aggregate measure 1.0 x 0.5 x 0.1 cm. The specimen is totally submitted in one cassette. B - Received in fixative is one container labeled with the patient's name and designated random esophagus biopsy. The specimen consists of two irregular fragments of light smyth soft tissue that in aggregate measure 0.7 x 0.5 x 0.1 cm. The specimen is totally submitted in one cassette. / AM:maryam 02/24/2023 TC:3 CPT: 44187 x2
--- NOTE | 2023-02-23 10:17 | PCM.HP.BLA ---
History and Physical Date of Admission: 02/23/23 47 F who presents to the office today for discussion of EGD and colonoscopy findings.? We have already spoken on the phone since her endoscopies, she is aware of H. pylori diagnosis and has started treatment with clarithromycin, amoxicillin and pantoprazole bid.? EGD also revealed esophageal stenosis which Dr. Andrade dilated, Z-line irregular, small hiatal hernia, gastritis, duodenitis.? On pathology there were changes of reflux, negative for Bishop's, focal active gastritis, positive H. pylori, no pathology in the duodenum.? On colonoscopy there was congested mucosa in the colon and ulcers in the distal ileum.? No pathologic change on biopsies of terminal ileum or colon.? Her [facility] panel was suggestive of Crohn's.? After reviewing case with Dr. Andrade we had discussed possible treatment for possible Crohn's, patient is adamant that she does want treatment.? We discussed labs for immunity.? Today she says don't put me on any medication that will suppress my immune system or will have a risk of cancer. She has ongoing upper abdominal pain which radiates through to the back, chronic diarrhea, fatigue. Diagnosed 08/18/22 in ED with pancolitis, being treated with cefdenir and flagyl (she says she's not taking flagyl).? 08/11/22 Dariel Araujo--O&P neg, C diff neg, shiga neg Can pass mucus with flatus. Denies hematochezia. Occas stool is dark, no definite melena. Diarrhea immed after eating. Not having any formed stools, even with Imodium. Has diarrhea in the night too. Constant nausea, phenergan no longer effective, except she's not vomiting. Was told in [place] that she had ulcerative colitis. Sister has UC. Smoker, +marijuana 10/21/21 EGD and Colonoscopy Impression: ? - Congested mucosa in the sigmoid colon, in the ? transverse colon and in the ascending colon. ? Biopsied. ? - A few ulcers in the distal ileum. Biopsied. Impression: ? - Benign-appearing esophageal stenosis. Dilated. ? - Z-line irregular, 38 cm from the incisors. ? Biopsied. ? - Small hiatal hernia. ? - Gastritis. Biopsied. ? - Duodenitis. Biopsied. MICROSCOPIC DIAGNOSIS A.? Duodenum, biopsy: ?No pathologic change. B.? Gastric body, biopsy: ?Chronic gastritis with focal active gastritis. ?See comment. Positive H pylori C.? Stomach, lesser curvature, biopsy: ?Chronic gastritis with focal active gastritis. D.? Distal esophagus, biopsy: ?Gastroesophageal junctional mucosa with mild chronic inflammation. ?Changes of reflux. ?No evidence of goblet cell metaplasia. ?See comment. E.? Terminal ileum, biopsy: ?No pathologic change. F.? Colon, random biopsy: ?No pathologic change. G.? Sigmoid colon, biopsy: ?Focal recent mucosal hemorrhage ROS Const Constitutional: Positive for fatigue and frequent falls ENT ENT: Positive for difficulty swallowing Gastro GI: Positive for abdominal pain, diarrhea, difficulty swallowing and nausea/dyspepsia; No belching, bloating, change in bowel habits, change in stool character, coffee ground emesis, constipation, cramping, heartburn, feeling full early, excessive flatus, incontinent of stools, Vomiting blood/hematemesis, Blood in stool, loose stools, Black,tarry stools, pain with swallowing, vomiting or other Musc Musculoskeletal: Positive for abnormal gait, stiffness, Arthritis and sciatica; No joint pain Skin Skin: No yellowing of the eye or itchy eyes Neuro Neurology: Positive for abnormal gait and frequent falls Psych Psychiatric: Positive for anxiety and Positive for depression Endo Endocrine: Positive for fatigue Aller/Imm Allergy/Immunologic: No itchy eyes J Carlos/Lymp Hematologic/Lymphatic: No easy bleeding or easy bruising Exam Const General: no acute distress Nutritional Appearance: average body habitus Orientation: alert, awake and oriented x3 Other: Looking at her phone throughout the visit Quality Reporting Tobacco Screening ([facility] 138) Smoking Status: Current every day smoker Assessment and Plan Assessment and Plan (1) Crohn's disease: ?Status:?Acute ?Plan: Possible Crohn's disease: Ulcers in the terminal ileum, no pathologic change in the terminal ileum on biopsy, lab panel suggestive of Crohn's.? She refuses any medication that comes with a warning of suppressed immune system or cancer risk therefore that limits treatment options.? We could try mesalamine or budesonide however they will work in the colon not the small intestine, we discussed that today.? She tried cholestyramine once but reports it gave her acid reflux and she refuses to take a medication that she has to avoid other meds with. (2) H. pylori infection: ?Status:?Acute ?Plan: Finish course of treatment for H. pylori Dr. Andrade recommended repeat EGD after 4 months therefore we will go ahead and schedule that, with follow-up in the office 2 weeks later Continue PPI even after completing course of treatment for H. pylori ? ? ? Medications: New budesonide ER 9 mg (3 x 3 mg) PO QAM 90 ea 2RF ? ? Discontinued cholestyramine (with sugar) 4 gram ?? administer w/meal; avoid other meds within 1hr before or 4-6hr after dose ?? Discontinued Reason:? Pt no longer taking 4 grams? PO DAILY 348.6 grams 0RF bile reflux ? ? I have examined the patient and the H&P has been reviewed. There are no clinical changes since date of exam.
[2023-02-23] MEDS: Lactated Ringers 1,000 ML 15 ML IV (10:21)
--- NOTE | 2023-02-23 11:00 | IMM_PTH ---
PATIENT: AYAKA BRANTLEY LOC: EN U#:[id number] AGE/SX: 47/F ROOM: RE02/23/[address]: Dr. Anoop Andrade DO : 1975 BED: DIS: 02/23/2023 SPEC #: [id number] RECD: 02/24/23 15:01 STATUS: PRETTY REQ #: [id number] LEXX: 02/23/23 11:[address]: Anoop Andrade DEPT: IMMUNOHISTOCHEMISTRY RECD BY: Molly Michael ENTERED: 02/24/23 15:01 SP TYPE: IMMUNO OTHR DR: Tej Whitehead, BINGO WORKER-C Tissues: A - Stomach, NOS Procedures: H Pylori (initial) PHYSICIAN & INSTITUTION [place] [id number] SPECIMEN INFORMATION: Tissue Source: A ? Gastric antrum Clinical Info: Crohn?s disease, H. pylori infection Specimen Number: [id number] CPT code: 30940 METHODOLOGY: Deparaffinized sections of prefer/formalin-fixed tissue or PAP/DQ stained slides are incubated with monoclonal/polyclonal antibodies/oligonucleotide probes. Localization is made via biotin free immunoperoxidase method. Appropriate controls are performed and reacted as expected. Results on target cell population are indicated in the following table: RESULTS: ANTIBODY / CLONE RESULT Block A H Pylori (polyclonal) positive These tests were developed and their performance characteristics determined by [facility]. They may not have been cleared or approved by the U.S. Food and Drug Administration. The FDA has determined that such clearance or approval is not necessary. The above immunohistochemical/dualISH markers are ordered and reviewed by the Pathologist. INTERPRETATION: A. Gastric antrum, biopsy: Positive for Helicobacter pylori. AM:maryam 02/25/2023
--- NOTE | 2023-02-23 11:25 | OP.EGD_ITS ---
Patient Name: Raquel Robledo Procedure Date: 02/23/2023 10:58 AM Date of : 1975 Age: 47 Procedure: Upper GI endoscopy Indications: Functional Dyspepsia, Dysphagia Providers: Anoop Andrade DO Referring MD: Anoop Andrade DO Medicines: Monitored Anesthesia Care Patient Profile: This is a 47 year old female. Refer to note in patient chart for documentation of history and physical. Patient has symptoms of dysphagia with both liquids and solids. Complications: No immediate complications. Procedure: Pre-Anesthesia Assessment: - Prior to the procedure, a History and Physical was performed, and patient medications and allergies were reviewed. The risks and benefits of the procedure and the sedation options and risks were discussed with the patient. All questions were answered and informed consent was obtained. Patient identification and proposed procedure were verified by the physician in the pre-procedure area. Mental Status Examination: alert and oriented. Respiratory Examination: clear to auscultation. CV Examination: normal. Prophylactic Antibiotics: The patient does not require prophylactic antibiotics. Prior Anticoagulants: The patient has taken no previous anticoagulant or antiplatelet agents. ASA Grade Assessment: II - A patient with mild systemic disease. After reviewing the risks and benefits, the patient was deemed in satisfactory condition to undergo the procedure. The anesthesia plan was to use monitored anesthesia care (MAC). Immediately prior to administration of medications, the patient was re-assessed for adequacy to receive sedatives. The heart rate, respiratory rate, oxygen saturations, blood pressure, adequacy of pulmonary ventilation, and response to care were monitored throughout the procedure. The physical status of the patient was re-assessed after the procedure. After obtaining informed consent, the endoscope was passed under direct vision. Throughout the procedure, the patient's blood pressure, pulse, and oxygen saturations were monitored continuously. The gastroscope was introduced through the mouth, and advanced to the second part of duodenum. The upper GI endoscopy was accomplished without difficulty. The patient tolerated the procedure well. Scope In: Scope Out: 11:18:29 AM Findings: Mucosal changes including ringed esophagus, small-caliber esophagus and white plaques were found in the middle third of the esophagus and in the lower third of the esophagus. Biopsies were obtained from the proximal and distal esophagus with cold forceps for histology of suspected eosinophilic esophagitis. Verification of patient identification for the specimen was done. Estimated blood loss was minimal. Diffuse moderate inflammation characterized by erosions and erythema was found in the gastric body. Biopsies were taken with a cold forceps for histology. Verification of patient identification for the specimen was done. Estimated blood loss was minimal. No gross lesions were noted in the first portion of the duodenum. Impression: - Esophageal mucosal changes consistent with eosinophilic esophagitis. Biopsied. - Chronic gastritis. Biopsied. - No gross lesions in the first portion of the duodenum. Recommendation: - Discharge patient to home. - Full liquid diet. - Continue present medications. - Await pathology results. Procedure Code(s): --- Professional --- 47464, Esophagogastroduodenoscopy, flexible, transoral; with biopsy, single or multiple CPT copyright 2017 [employer]. All rights reserved. The codes documented in this report are preliminary and upon remote inpatient coder review may be revised to meet current compliance requirements. Anoop Andrade DO 02/23/2023 11:25:17 AM This report has been signed electronically. Number of Addenda: 0 Note Initiated On: 02/23/2023 10:58 AM
--- NOTE | 2023-02-23 11:25 | OP.CCLET_ITS ---
02/23/2023 Tej Whitehead Re : Upper GI endoscopy procedure for Raquel Robledo Dear Charley This procedure was performed on Thursday, February 23, 2023. My impressions and recommendations are as follows: Impressions : - Esophageal mucosal changes consistent with eosinophilic esophagitis. Biopsied. - Chronic gastritis. Biopsied. - No gross lesions in the first portion of the duodenum. Recommendations : - Discharge patient to home. - Full liquid diet. - Continue present medications. - Await pathology results. My findings are described in the full procedure note, which is enclosed. If I can be of further assistance, please feel free to contact me at . Sincerely, Anoop Andrade DO 02/23/2023 11:25:17 AM This report has been signed electronically.
== END 2023-02-23 12:24 | disposition home or self-care (01) ==
LOC: EN 09:45 → AC 09:47
PROVIDERS: PCP Nurse Practitioner Family; Referring Provider Nurse Practitioner Family; Visit Provider Internal Medicine Gastroenterology
PROC: 0DJ08ZZ Inspection of Upper Intestinal Tract, Via Natural or Artificial Opening Endoscopic (ICD-10-PCS; CPT 43235; principal; 2023-02-23 10:55)
DX: K29.50 Unspecified chronic gastritis without bleeding (principal); K50.90 Crohn's disease, unspecified, without complications; K20.0 Eosinophilic esophagitis; B96.81 Helicobacter pylori [H. pylori] as the cause of diseases classified elsewhere; K31.89 Other diseases of stomach and duodenum; F17.200 Nicotine dependence, unspecified, uncomplicated; I95.9 Hypotension, unspecified; E55.9 Vitamin D deficiency, unspecified; Z86.73 Personal history of transient ischemic attack (TIA), and cerebral infarction without residual deficits; Z79.899 Other long term (current) drug therapy
CPT/HCPCS: 43239; 88305; 88342; J7120; J2405

== ENCOUNTER → 2023-02-26 | Outpatient (CLI) | payer MEDICARE, MEDICAID, SELFPAY ==
[2023-03-05 19:07] LABS: Beef <0.10 kU/L (Class 0); Chocolate <0.10 kU/L (Class 0); Corn 0.12 kU/L (Class 0/I); Egg, Whole 0.31 kU/L (Class 0/I); Milk (Cow) 0.31 kU/L (Class 0/I); Peanut <0.10 kU/L (Class 0); Pork <0.10 kU/L (Class 0); Soybean <0.10 kU/L (Class 0); Wheat <0.10 kU/L (Class 0)
== END | disposition home or self-care (01) ==
LOC: LAB 13:02
PROVIDERS: PCP Nurse Practitioner Family; Referring Provider Internal Medicine Gastroenterology; Visit Provider Internal Medicine Gastroenterology
DX: K50.90 Crohn's disease, unspecified, without complications (principal)
CPT/HCPCS: 36415; 86003; 86005

== ENCOUNTER → 2023-04-06 | Outpatient (CLI) | payer MEDICARE, MEDICAID, SELFPAY ==
[2023-04-06 10:49] LABS: Hepatitis B Surface Antibody Non-Reactive
[2023-04-08 15:08] LABS: H. Pylori Antibody (IgG) 2.68 (0.00-0.79); QNTFERON TB Mitogen Value > 10.00 IU/mL (.); QNTFERON TB Nil Value 0.03 IU/mL (.); QNTFERON TB1+ Ag Value 0.02 IU/mL (.); QNTFERON TB2+ Ag Value 0.02 IU/mL (.); QNTIFERON TB Positive Criteria Negative (Negative)
== END | disposition home or self-care (01) ==
PROVIDERS: PCP Nurse Practitioner Family; Referring Provider Internal Medicine Gastroenterology; Visit Provider Internal Medicine Gastroenterology
DX: A04.8 Other specified bacterial intestinal infections (principal); K50.90 Crohn's disease, unspecified, without complications; T78.1XXA Other adverse food reactions, not elsewhere classified, initial encounter
CPT/HCPCS: 36415; 86480; 86677; 86706

== ENCOUNTER 2023-04-24 13:47 | Day surgery (SDC) | payer MEDICARE, MEDICAID, SELFPAY ==
[2023-04-24] VITALS (8 sets, daily range): BP systolic 86–118; BP diastolic 51–84; PULSE 61–80; RESP 14–18; TEMP 36.2–36.8; O2SAT 97–100; BMI 22.4
--- NOTE | 2023-04-24 | IMM_PTH ---
PATIENT: AYAKA BRANTLEY LOC: EN U#:[id number] AGE/SX: 47/F ROOM: RE04/24/[address]: Dr. Anoop Andrade DO : 1975 BED: DIS: 04/24/2023 SPEC #: [id number] RECD: 04/27/23 14:45 STATUS: PRETTY REQ #: [id number] LEXX: 04/24/23 00:[address]: Anoop Andrade DEPT: IMMUNOHISTOCHEMISTRY RECD BY: Luz Michael ENTERED: 04/27/23 14:46 SP TYPE: IMMUNO OTHR DR: MD Tej Courtney, SKULL CHOPPER-C Tissues: Gastric mucous membrane Procedures: H Pylori (initial) PHYSICIAN & INSTITUTION [place] [address] SPECIMEN INFORMATION: Tissue Source: Gastric body Clinical Info: H.pylori infection Specimen Number: [id number] CPT code: 30316 METHODOLOGY: Deparaffinized sections of prefer/formalin-fixed tissue or PAP/DQ stained slides are incubated with monoclonal/polyclonal antibodies/oligonucleotide probes. Localization is made via biotin free immunoperoxidase method. Appropriate controls are performed and reacted as expected. Results on target cell population are indicated in the following table: RESULTS: ANTIBODY / CLONE RESULT H Pylori (polyclonal) positive These tests were developed and their performance characteristics determined by [facility]. They may not have been cleared or approved by the U.S. Food and Drug Administration. The FDA has determined that such clearance or approval is not necessary. The above immunohistochemical/dualISH markers are ordered and reviewed by the Pathologist. INTERPRETATION: Gastric body, biopsy: Positive for a few Helicobacter pylori organisms. SJ:dena 04/29/23
[2023-04-24] MEDS: Lactated Ringers 1,000 ML 15 ML IV (14:00)
--- NOTE | 2023-04-24 14:47 | HP.PCM_ITS ---
History and Physical Date of Admission: 04/24/23 AYAKA BRANTLEY, is a 47 F who presents to the office today for PCP OV 07.31.22 as follow up noting chronic diarrhea that is not improved with concern for gastric dysmotility r/t long-term marijuana use. [facility] ED with abdominal pain for a week, loose stools and nausea. ? CT abd/pel s/p cholecystectomy with mild dilation of central intrahepatic ducts; mild galeana colitis. *BGI established 08.25.22 with abdominal pain/pressure radiating into back and loose stools unaffected by immodium and weight loss of 20lbs in the last month. History of IBS with use of IBGuard. Workup in [place] previously where she was told she has UC. ? Biochemical CBC, ESR, CMP, LFT, CRP, LDH, GAME, EDDIE, ANCA, ZOILA comp, celiac, ? Crohn?s suggestion (apANCA, ACCA) ? Stool calprotectin WNL. ? EGD and colonoscopy 10.21.22 esophageal stenosis, balloon dilator 15mm; irregular Zline 38cm; small hiatal hernia; gastritis; duodenitis. H.Pylori + ? Colonoscopy congestion of sigmoid, transverse and ascending colons; distal ileum ulcerations. No pathologic changes. ? Start clarithromycin, amoxicillin and PPI OV 10.31.22 Discussion of Crohn?s disease opened and agreeable to treatment so long as it does not affect her immune system or have increased risk of cancer. Start budesonide. ? 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 H.Pylori + Contact 02.26.23 start PPI BID, pepto bismol Q8H, clarithromycin and amoxicillin. Stool testing 2 weeks after stop of therapy. ? Biochemical 02.26.23 RAST equivocal/low corn, whole egg, milk. Contact 03.06.23 with RAST results. Has not started antibiotic therapy yet r/t large pills; is getting a pill cutter. ? Stool H.Pylori not performed. OV 04.06.23 has completed her H.Pylori therapy. She has difficulty with transportation which is why she has not done her stool study. With elimination of corn and egg she has had a resolution of dysphagia and choking and nose bleeds; she is lactose free and consumes only hard cheese. Will sometimes consume some foods that contain a sensitivity if it is low on the ingredient list and will use a Benadryl on this occasion. ROS Const Constitutional: Positive for fatigue and frequent falls ENT ENT: Positive for difficulty swallowing Gastro GI: Positive for abdominal pain, diarrhea, difficulty swallowing and nausea/dyspepsia; No belching, bloating, change in bowel habits, change in stool character, coffee ground emesis, constipation, cramping, heartburn, feeling full early, excessive flatus, incontinent of stools, Vomiting blood/hematemesis, Blood in stool, loose stools, Black,tarry stools, pain with swallowing, vomiting or other Musc Musculoskeletal: Positive for abnormal gait, stiffness, Arthritis and sciatica; No joint pain Skin Skin: No yellowing of the eye or itchy eyes Neuro Neurology: Positive for abnormal gait and frequent falls Psych Psychiatric: Positive for anxiety and Positive for depression Endo Endocrine: Positive for fatigue Aller/Imm Allergy/Immunologic: No itchy eyes J Carlos/Lymp Hematologic/Lymphatic: No easy bleeding or easy bruising Exam Const General: cooperative, comfortable and no acute distress Nutritional Appearance: average body habitus Orientation: alert, awake and oriented x3 Other: She walks with a cane HENMT Head: normal to inspection Eyes General: appearance normal, both eyes and all related structures Neck Neck: normal visual inspection Resp Effort & Inspection: normal respiratory effort GI Inspection: normal to inspection Palpation: soft, no hepatosplenomegaly, no masses and tender in the epigastrum Skin General: no jaundice Quality Reporting Tobacco Screening ([facility] 138) Smoking Status: Current every day smoker Assessment and Plan Assessment and Plan (1) H. pylori infection: Status: Chronic Plan: Finish course of treatment for H. pylori Dr. Andrade recommended repeat EGD after 4 months therefore we will go ahead and schedule that, with follow-up in the office 2 weeks later Continue PPI even after completing course of treatment for H. pylori (2) Gastrointestinal food sensitivity: Status: Chronic Comment: corn, whole eggs, milk Plan: Patient has noticed a big difference after eliminating the foods that have been causing her to have esophageal dysphagia likely secondary to increased bowel production as she does most of the bowel back into her stomach that was seen on an upper endoscopy. (3) Crohn's disease: Status: Acute Plan: Possible Crohn's disease: Ulcers in the terminal ileum, no pathologic change in the terminal ileum on biopsy, lab panel suggestive of Crohn's. She now says that she wants to go on medicine for Crohn's disease. However we will not start her on anything until we know her H. pylori status and we treat her bile induced gastritis which is causing bile induced diarrhea in my opinion. Orders: Orders H. Pylori Antibody (IgG) Today A04.8 - Other specified bacterial intestinal infections the patient has been examined again at the bedside there are no changes since the patient was seen in a clinic.
--- NOTE | 2023-04-24 15:00 | EGD_PTH ---
PATIENT: AYAKA BRANTLEY LOC: EN U#:[id number] AGE/SX: 47/F ROOM: RE04/24/[address]: Dr. Anoop Andrade DO : 1975 BED: DIS: 04/24/2023 SPEC #: [id number] RECD: 04/24/23 17:39 STATUS: PRETTY RE #: [id number] LEXX: 04/24/23 15:[address]: Anoop Andrade DEPT: SURGICAL PATHOLOGY RECD BY: Elham Irizarry ENTERED: 04/27/23 08:38 SP TYPE: EGD BIOPSY MARIAM DR: MD Tej Courtney, SOFTWARE ENGINEERING ASSOCIATE MANAGER-C Tissues: Gastric mucous membrane Procedures: Surgery Specimen Level IV HEADER OPERATION: EGD PRE-OP DIAGNOSIS: H.pylori infection, Gastrointestinal food sensitivity, Crohn's Disease TISSUE SUBMITTED: Gastric body MICROSCOPIC DIAGNOSIS Gastric body, biopsy: Mild gastritis. See microscopic description and comment. SJ: 04/28/2023 COMMENT The results of immunohistochemistry for Helicobacter pylori will be reported separately ([id number]). MICROSCOPIC DESCRIPTION Slides are reviewed. The specimen shows fragments of gastric mucosa with chronic inflammatory cell infiltrates in the lamina propria consisting of lymphocytes and plasma cells, consistent with mild chronic gastritis. GROSS DESCRIPTION Received is one container labeled with the patient name and designated gastric body. The specimen consists of multiple irregular fragments of light smyth soft tissue that in aggregate measure 1.5 x 0.3 x 0.1 cm. The specimen is totally submitted in one cassette. / SJ: 04/27/23 TC:3 CPT:34363
--- NOTE | 2023-04-24 15:27 | OP.EGD_ITS ---
Patient Name: Raquel Robledo Procedure Date: 04/24/2023 2:50 PM Date of : 1975 Age: 47 Procedure: Upper GI endoscopy Indications: Epigastric abdominal pain, Dysphagia Providers: Anoop Andrade DO Referring MD: Anoop Andrade DO Medicines: Monitored Anesthesia Care Patient Profile: This is a 47 year old female. Refer to note in patient chart for documentation of history and physical. Patient has symptoms of dysphagia with both liquids and solids. Complications: No immediate complications. Procedure: Pre-Anesthesia Assessment: - Prior to the procedure, a History and Physical was performed, and patient medications and allergies were reviewed. The patient is competent. The risks and benefits of the procedure and the sedation options and risks were discussed with the patient. All questions were answered and informed consent was obtained. Patient identification and proposed procedure were verified by the physician in the pre-procedure area. Mental Status Examination: normal. Airway Examination: normal oropharyngeal airway and neck mobility. Prophylactic Antibiotics: The patient does not require prophylactic antibiotics. Prior Anticoagulants: The patient has taken no previous anticoagulant or antiplatelet agents. After reviewing the risks and benefits, the patient was deemed in satisfactory condition to undergo the procedure. The anesthesia plan was to use minimal sedation / analgesia (anxiolysis). Immediately prior to administration of medications, the patient was re-assessed for adequacy to receive sedatives. The heart rate, respiratory rate, oxygen saturations, blood pressure, adequacy of pulmonary ventilation, and response to care were monitored throughout the procedure. The physical status of the patient was re-assessed after the procedure. After obtaining informed consent, the endoscope was passed under direct vision. Throughout the procedure, the patient's blood pressure, pulse, and oxygen saturations were monitored continuously. The Endoscope was introduced through the mouth, and advanced to the second part of duodenum. The upper GI endoscopy was accomplished without difficulty. The patient tolerated the procedure well. Scope In: 3:11:49 PM Scope Out: 3:16:24 PM Total Procedure Duration Time 0 hours 4 minutes 35 seconds Findings: Mildly severe esophagitis with no bleeding was found 35 to 39 cm from the incisors. Patchy severe inflammation characterized by congestion (edema), erosions and erythema was found in the gastric body. Biopsies were taken with a cold forceps for histology. Verification of patient identification for the specimen was done. The duodenal bulb was normal. Impression: - Mildly severe chronic esophagitis. - Chronic gastritis. Biopsied. - Normal duodenal bulb. Recommendation: - Discharge patient to home. - Resume previous diet. - Continue present medications. - Await pathology results. Procedure Code(s): --- Professional --- 09657, Esophagogastroduodenoscopy, flexible, transoral; with biopsy, single or multiple CPT copyright 2017 [employer]. All rights reserved. The codes documented in this report are preliminary and upon molding and trim installer review may be revised to meet current compliance requirements. Anoop Andrade DO 04/24/2023 3:27:00 PM This report has been signed electronically. Number of Addenda: 0 Note Initiated On: 04/24/2023 2:50 PM
--- NOTE | 2023-04-24 15:27 | OP.CCLET_ITS ---
04/24/2023 Tej Whitehead Re : Upper GI endoscopy procedure for Raquel Robledo Dear Charley This procedure was performed on Monday, April 24, 2023. My impressions and recommendations are as follows: Impressions : - Mildly severe chronic esophagitis. - Chronic gastritis. Biopsied. - Normal duodenal bulb. Recommendations : - Discharge patient to home. - Resume previous diet. - Continue present medications. - Await pathology results. My findings are described in the full procedure note, which is enclosed. If I can be of further assistance, please feel free to contact me at . Sincerely, Anoop Andrade, 04/24/2023 3:27:00 PM This report has been signed electronically.
== END 2023-04-24 16:00 | disposition home or self-care (01) ==
LOC: EN 13:49 → AC 13:51
PROVIDERS: PCP Nurse Practitioner Family; Visit Provider Internal Medicine Gastroenterology
PROC: 0DJ08ZZ Inspection of Upper Intestinal Tract, Via Natural or Artificial Opening Endoscopic (ICD-10-PCS; CPT 43235; principal; 2023-04-24 14:55)
DX: K29.50 Unspecified chronic gastritis without bleeding (principal); R13.10 Dysphagia, unspecified; F17.200 Nicotine dependence, unspecified, uncomplicated; K20.90 Esophagitis, unspecified without bleeding; B96.81 Helicobacter pylori [H. pylori] as the cause of diseases classified elsewhere; K31.89 Other diseases of stomach and duodenum; I95.9 Hypotension, unspecified; E78.5 Hyperlipidemia, unspecified; Z86.73 Personal history of transient ischemic attack (TIA), and cerebral infarction without residual deficits; Z79.899 Other long term (current) drug therapy
CPT/HCPCS: 43239; 88305; 88342; J7120; J2405

== ENCOUNTER 2023-05-12 17:45 | Emergency (ER) | payer MEDICARE, MEDICAID, SELFPAY ==
[2023-05-12 17:46] VITALS: BP 116/76; PULSE 87; RESP 14; TEMP 36.8; O2SAT 100
[2023-05-12] MEDS: Mag Hydrox/Al Hydrox/Simeth 30 ML UDC PO (18:19)
[2023-05-12] MEDS: Famotidine 200 MG/20 ML MDV 20 MG in 0.9% Normal Saline (Pres. free 8 ML 300 MG IV (18:19)
[2023-05-12 18:21] VITALS: BMI 23.1
[2023-05-12 18:22] LABS: Absolute Lymphocyte Count 3.69 X10^3/uL (0.83-4.51); Absolute Neutrophil Count 3.4 X10^3/uL (2.0-7.7); Basophil# 0.07 X10^3/uL; Basophil% 0.9 % (0-1); Eosinophil# 0.42 X10^3/uL; Eosinophils% 5.2 % (0-5); Hematocrit 42.1 % (37-47); Hemoglobin 14.1 g/dL (12.0-15.0); Lymphocyte # 3.69 X10^3/ul (0.83-4.51); Lymphocyte % 45.7 % (19-41); Mean Corp Hgb Conc 33.5 g/dL (32-36); Mean Corpuscular Hgb 31.1 pg (27.0-32.0); Mean Corpuscular Volume 92.9 fL (81-99); Mean Platelet Vol. 8.4 fl (6.2-12.0); Monocyte# 0.46 X10^3/uL; Monocyte% 5.7 % (0-10); NRBC Flagged by Analyzer 0 % (0-5); Neutrophil # 3.41 X10^3/uL (2.7-7.7); Neutrophil % 42.1 % (47-70); Platelet Count 344 K/mm3 (150-450); RBC Distribution Width CV 13.2 % (11.6-14.6); Red Blood Count 4.53 M/mm3 (4.2-5.4); White Blood Count 8.1 K/mm3 (4.4-11.0)
[2023-05-12 18:40] LABS: Anion Gap 5 (5-15); BUN 8 mg/dL (7-18); BUN/Creat Ratio 11.3 RATIO (10-20); Chloride 110 mmol/L (98-107); Creatinine, Serum 0.71 mg/dL (0.55-1.02); EST Glomerular Filtration Rate 94 mL/min (>60); Est Glom Filt Rate - Afr Amer 114 mL/min (>60); Glucose 92 mg/dL (74-106); Potassium 3.7 mmol/L (3.5-5.1); Sodium Level 138 mmol/L (136-145)
--- NOTE | 2023-05-12 19:02 | ED.VIS.GI ---
HPI HPI - GI History of Present Illness Chief Complaint: Abd Pain Detail of Chief Complaint: Severe abdominal pain Informant: patient Abdominal Pain/Flank Pain Onset: - (Chronic issue) Timing: - (Worse today) Quality: Aching and Cramping Location: RUQ and LUQ Current Severity: Severe Maximum Severity: Severe Worsened by: Food Relieved by: Nothing Nausea/Vomiting/Emesis GI Symptom: Positive for Nausea and Vomiting Onset: Yesterday Quality: Negative for Nonbilious, Blood streaks, Coffee ground or Hematemesis Severity: Mild Diarrhea/Melena/Hematochezia GI Symptom: Negative for Diarrhea, Melena or Hematochezia Associated Symptoms Associated Symptoms: Negative for Dysuria, Frequency, Hematuria or Urgency Narrative Narrative: Is a 48-year-old woman with history of fibromyalgia. She informs that she has high tolerance for pain and this is severe. He also tells me that she has narrowing of her esophagus and Dr. Andrade is unaware. Dr. Andrade's office note and most recent EGD was reviewed. Patient has chronic esophagitis and chronic gastritis with inflammatory changes. There was no mention of stenosis of the esophagus. Patient denies black or maroon-colored stool. Patient denies brown or coffee-ground emesis. Last emesis was yesterday. Last bowel movement was yesterday and she states it took her 3 days to empty out . Patient denies fever, chills night sweats. Patient has cardiac or respiratory symptoms. Patient denies urologic symptoms. Prior similar symptoms: Yes Recent Illness/Hospitalization: Yes PFSH PFSH Medical History Abdominal pain Adrenal insufficiency Anxiety and depression Aphagia Arthritis Asthma Back pain Borderline personality disorder Cancer Chronic fatigue syndrome Colitis Contusion, hip Conversion disorder COPD (chronic obstructive pulmonary disease) CVA (cerebral vascular accident) Diarrhea Difficulty swallowing Emphysema/COPD Expressive aphasia Facial droop Fibromyalgia Frequent falls Gait disturbance Gastric reflux History of Crohn's disease History of edema History of migraine History of pain when walking History of pseudoseizure History of TIAs Hyperlipidemia Hypoglycemia Hypotension IBS (irritable bowel syndrome) Ileum ulcer Injury of head and neck Irritable bowel syndrome Ischemic stroke Kidney stones Left hip pain Marijuana use Migraines Night terrors, adult Paresthesia of right arm Post-menopausal Right arm weakness Right hip pain RLS (restless legs syndrome) Seasonal allergies Shortness of breath on exertion Smoker Stroke Stroke-like symptoms Stroke/cerebrovascular accident Swallowing dysfunction Tobacco use Vitamin D deficiency Wears dentures Home Medications cholecalciferol (vitamin D3) 125 mcg (5,000 unit) disintegrating tablet 10,000 unit PO DAILY supplement 12/27/19 [History Last Taken 12/01/22] prazosin 2 mg capsule 2 mg PO QHS 09/20/20 [History Last Taken 12/01/22] vitamin E (dl, acetate) 45 mg (100 unit) capsule 45 mg PO DAILY 07/01/21 [History Last Taken 12/01/22] biotin 10 mg tablet 10 mg PO DAILY 10/15/22 [History Last Taken 12/02/22] fludrocortisone 0.1 mg tablet 0.1 mg PO DAILY HYPOTENSION 10/15/22 [History Last Taken 12/01/22] albuterol sulfate 90 mcg/actuation aerosol inhaler 2 puff inhalation 4X/DAY PRN ASTHMA 01/08/23 [History Last Taken Unknown] atorvastatin 10 mg tablet 10 mg PO DAILY 01/08/23 [History Last Taken Unknown] promethazine 12.5 mg tablet 12.5 mg PO Q8H PRN Nausea 01/08/23 [History Last Taken Unknown] triamcinolone acetonide 55 mcg nasal spray aerosol 2 spray intranasal DAILY ALLERGIES 01/08/23 [History Last Taken Unknown] turmeric root extract 500 mg capsule 500 mg PO DAILY 01/08/23 [History Last Taken Unknown] vitamin B complex 1 tab PO DAILY supplement 01/08/23 [History Last Taken Unknown] diphenoxylate-atropine 2.5 mg-0.025 mg tablet (Lomotil) 1 tab PO Q6H PRN Diarrhea 01/12/23 [History Last Taken Unknown] loperamide 2 mg capsule 2 mg PO Q6H PRN Diarrhea 01/12/23 [History Last Taken Unknown] tizanidine 4 mg capsule (Zanaflex) 4 mg PO BID muscle spasticity 01/12/23 [History Last Taken Unknown] calcium 300 mg chewable tablet 600 mg PO DAILY 02/18/23 [History Last Taken Unknown] fexofenadine 60 mg tablet (Jess Allergy) 60 mg PO BID 02/18/23 [History Last Taken Unknown] multivitamin 1 tab PO DAILY 02/18/23 [History Last Taken Unknown] amoxicillin 875 mg tablet 875 mg PO BID #28 tabs 05/11/23 [Rx Last Taken Unknown] clarithromycin 500 mg tablet 500 mg PO BID #28 tabs 02/26/23 [Rx Last Taken Unknown] pantoprazole 40 mg tablet,delayed release (Protonix) 40 mg PO BID #60 tabs 02/26/23 [Rx Last Taken Unknown] Allergy/AdvReac Type Severity Reaction Status Date / Time bee pollen Allergy Severe Anaphylaxis Verified 05/12/23 17:46 coconut Allergy Intermediate Eye Verified 05/12/23 17:46 swelling, Rash metronidazole [From Flagyl] Allergy Intermediate Vomiting Verified 05/12/23 17:46 aspirin Allergy Shortness Verified 05/12/23 17:46 of breath bupropion HCl Allergy Other Verified 05/12/23 17:46 [From Wellbutrin] divalproex sodium Allergy Rash Verified 05/12/23 17:46 [From Depakote] doxycycline Allergy Rash Verified 05/12/23 17:46 Gadolinium-MRI Contrast Allergy Hives Verified 05/12/23 17:46 Medium [Gadolinium-Contrast Medium - MRI] lamotrigine [From Lamictal] Allergy Rash Verified 05/12/23 17:46 latex Allergy Hives Verified 05/12/23 17:46 phenytoin sodium Allergy Hives Verified 05/12/23 17:46 [From Dilantin] phenytoin sodium extended Allergy Hives Verified 05/12/23 17:46 [From Dilantin] pineapple Allergy Swelling, Verified 05/12/23 17:46 Rash corn AdvReac Mild Other Verified 05/12/23 17:46 egg AdvReac Mild Other Verified 05/12/23 17:46 erythromycin base AdvReac Nausea/Vom/ Verified 05/12/23 17:46 Diarrhea quetiapine fumarate AdvReac Other Verified 05/12/23 17:46 [From Seroquel] Sulfa (Sulfonamide AdvReac Vomiting Verified 05/12/23 17:46 Antibiotics) varenicline tartrate AdvReac Vomiting Verified 05/12/23 17:46 [From Chantix] Family History Mother Diabetes Heart disease Hypertension HLD (hyperlipidemia) Depression Myocardial infarction Multiple sclerosis Father , 56 Diabetes Heart disease Hypertension HLD (hyperlipidemia) Asthma Myocardial infarction Sister Cancer Diabetes Grandfather Diabetes Surgical History H/O section H/O knee surgery History of cholecystectomy History of dilation and curettage Hx of colonoscopy Hx of tooth extraction S/P partial hysterectomy Social History adopted: Yes household members: none housing: house current occupational status: disabled Smoking Status: Current every day smoker tobacco type: cigarettes alcohol intake: current alcohol intake frequency: a few times a month Alcohol type: wine substance use type: marijuana caffeine: Yes Type: coffee Number of servings: 1 what type of physical activity do you participate in: other details: home exercises, fishing do you feel safe at home: Yes ROS ROS ED Constitutional Constitutional ED: Denies chills, fever(s), subjective, sweats or weight loss ENT ENT ED: Denies ear pain, rhinorrhea or sore throat Cardiovascular Cardiovascular: Denies chest pain, orthopnea, palpitations, paroxysmal nocturnal dyspnea or racing heartbeat Respiratory/Chest Respiratory/Chest: Denies cough, dyspnea, dyspnea on exertion, orthopnea or paroxysmal nocturnal dyspnea Gastrointestinal Gastrointestinal: Reports abdominal pain, nausea and vomiting; Denies constipation, diarrhea or melena Genitourinary Genitourinary ED: Denies dysuria, hematuria or urinary frequency Musculoskeletal Musculoskeletal: Denies arthralgias, back pain, myalgias or neck pain Neurologic Neurologic: Denies headache(s), paresthesias or weakness Endocrine Endocrinology: Denies polydipsia, polyphagia or polyuria Hematologic/Lymphatic Hematologic/Lymphatic: Denies easy bleeding or easy bruising EXAM Physical Exam Const Vital Signs: 05/12/23 17:46 Temperature 98.2 F Temperature Source Temporal Pulse Rate 87 Respiratory Rate 14 Blood Pressure 116/76 Blood Pressure Mean 89 Pulse Ox 100 Oxygen Delivery Method Room Air Positive well nourished and well developed General Appearance ED: well developed and NAD; Negative for pallor HEENT Reports TM's clear and moist mucous membranes HEENT Narrative: Patient has poor dentition. normocephalic and atraumatic Tympanic Membrane ED: Yes TM's clear Eyes PERRL and EOMs intact bilaterally General Eye ED: Negative for pale conjunctiva or scleral icterus Neck no lymphadenopathy, supple and no JVD Resp normal respiratory effort and clear to auscultation bilaterally Cardio regular rate, regular rhythm, S1 normal heart sound, S2 normal heart sound and no murmurs GI non-distended and no masses GI Narrative: Patient screamed out in pain when I placed my stethoscope on her abdomen. Movement of the bed and movement of her pelvis does not cause any abdominal pain. Inspection: Negative for abdominal distention Auscultation: hypoactive bowel sounds Palpation: soft Back/Spine no CVA tenderness Thoracic Spine / Upper Back: Negative for thoracic spinal tenderness Lumbar Spine / Lower Back: Negative for lumbar spinal tenderness Extremity full ROM Neuro CN's II-XII intact bilaterally, moves all extremities and no sensory deficits noted Sensorium / Orientation: alert Psych Mood & Affect: depressed Skin no wounds General Skin Exam: Negative for jaundice or pallor Lesions: no lesions MDM MDM MDM Narrative Medical decision making narrative: Past records and EGD by Dr. Andrade were reviewed. This reveals chronic esophagitis and gastritis. Patient does have history of H. pylori. She states she had biopsies again to assess for H. pylori since she is resistant to the antibiotics he was treated with. Patient has exaggerated pain. Suspect there is an affective component to her abdominal pain. However in light of her history will obtain CBC to assess for H&H. BMP to assess renal function and electrolytes. Patient was treated with IV Pepcid and GI cocktail. When I entered the room to reassess her at 1901 patient was sitting upright doing something on her smart phone/tablet. Patient appeared in no discomfort. Patient was informed that her tests are normal. Patient was informed that I did review her notes. She made the comment I knew I should not have come in because nothing would be found . Lab Data Labs: Laboratory Results - last 24 hr 05/12/23 18:17 WBC 8.1 RBC 4.53 Hgb 14.1 Hct 42.1 MCV 92.9 MCH 31.1 MCHC 33.5 RDW Std Deviation 45.0 H RDW Coeff of Yuly 13.2 Plt Count 344 MPV 8.4 Immature Gran % (Auto) 0.400 Neut % (Auto) 42.1 L Lymph % (Auto) 45.7 H Cameron % (Auto) 5.7 Eos % (Auto) 5.2 H Baso % (Auto) 0.9 Absolute Neuts (auto) 3.4 Absolute Lymphs (auto) 3.69 Nucleated RBC % 0 Sodium 138 Potassium 3.7 Chloride 110 H Carbon Dioxide 23.0 Anion Gap 5 BUN 8 Creatinine 0.71 Estim Creat Clear Calc 85.50 Est GFR (MDRD) Af Amer 114 Est GFR (MDRD) Non-Af 94 BUN/Creatinine Ratio 11.3 Glucose 92 Calcium 9.0 Discharge Plan Triage Chief Complaint: Abd Pain ED Provider: Tadeo Bush Dx/Rx/DC Orders Clinical Impression: Esophagitis determined by endoscopy, Gastritis determined by endoscopy, Nausea & vomiting Instructions: Esophagitis Prescriptions: No Action vitamin E (dl, acetate) 45 mg (100 unit) capsule 45 mg PO DAILY promethazine 12.5 mg tablet 12.5 mg PO Q8H PRN (Reason: Nausea) albuterol sulfate 90 mcg/actuation HFA aerosol inhaler 2 puff inhalation 4X/DAY PRN (Reason: ASTHMA) triamcinolone acetonide 55 mcg aerosol,spray 2 spray intranasal DAILY Rx Instructions: administer into each nostril atorvastatin 10 mg tablet 10 mg PO DAILY turmeric root extract 500 mg capsule 500 mg PO DAILY loperamide 2 mg capsule 2 mg PO Q6H PRN (Reason: Diarrhea) diphenoxylate-atropine [Lomotil] 2.5-0.025 mg tablet 1 tab PO Q6H PRN (Reason: Diarrhea) cholecalciferol (vitamin D3) 5,000 UNIT tablet,disintegrating 10,000 unit PO DAILY vitamin B complex Tablet 1 tab PO DAILY prazosin 2 MG capsule 2 mg PO QHS tizanidine [Zanaflex] 4 mg capsule 4 mg PO BID biotin 10 mg Tablet 10 mg PO DAILY fludrocortisone 0.1 mg tablet 0.1 mg PO DAILY Patient Comments: TAKE 1 TABLET BY MOUTH EVERY DAY multivitamin [Multi-Day] Tablet 1 tab PO DAILY fexofenadine [Jess Allergy] 60 mg Tablet 60 mg PO BID calcium 300 mg Tablet,Chewable 600 mg PO DAILY clarithromycin 500 mg tablet 500 mg PO BID Qty: 28 0RF amoxicillin 875 mg tablet 875 mg PO BID Qty: 28 0RF pantoprazole [Protonix] 40 mg tablet,delayed release (DR/EC) 40 mg PO BID Qty: 60 0RF Primary Care Provider: Tej Whitehead NP Referrals: Friend,DO Anoop [Med Staff - Active Staff] - 5-7 Days Charley,Tej Robe FUNERAL ATTENDANT, FUNERAL ATTENDANT-C [Primary Care Provider] - Disposition Disposition: Home, Self Care
== END 2023-05-12 19:14 | disposition home or self-care (01) ==
PROVIDERS: Emergency Provider Emergency Medicine; PCP Nurse Practitioner Family; Visit Provider Emergency Medicine
DX: K21.00 Gastro-esophageal reflux disease with esophagitis, without bleeding (principal); K29.50 Unspecified chronic gastritis without bleeding; R11.2 Nausea with vomiting, unspecified; F17.210 Nicotine dependence, cigarettes, uncomplicated; F12.90 Cannabis use, unspecified, uncomplicated; Z86.73 Personal history of transient ischemic attack (TIA), and cerebral infarction without residual deficits
CPT/HCPCS: 80048; 85025; 96365; 99283; A4216; J3490

== ENCOUNTER → 2023-05-21 | Outpatient (CLI) | payer MEDICARE, MEDICAID, SELFPAY ==
[2023-05-21 14:42] LABS: Absolute Lymphocyte Count 2.95 X10^3/uL (0.83-4.51); Absolute Neutrophil Count 3.1 X10^3/uL (2.0-7.7); Basophil# 0.06 X10^3/uL; Basophil% 0.9 % (0-1); Eosinophil# 0.32 X10^3/uL; Eosinophils% 4.6 % (0-5); Hematocrit 43.2 % (37-47); Hemoglobin 14.9 g/dL (12.0-15.0); Lymphocyte # 2.95 X10^3/ul (0.83-4.51); Lymphocyte % 42.6 % (19-41); Mean Corp Hgb Conc 34.5 g/dL (32-36); Mean Corpuscular Hgb 31.2 pg (27.0-32.0); Mean Corpuscular Volume 90.4 fL (81-99); Mean Platelet Vol. 8.5 fl (6.2-12.0); Monocyte# 0.53 X10^3/uL; Monocyte% 7.7 % (0-10); NRBC Flagged by Analyzer 0 % (0-5); Neutrophil # 3.05 X10^3/uL (2.7-7.7); Neutrophil % 44.1 % (47-70); Platelet Count 359 K/mm3 (150-450); RBC Distribution Width CV 13.2 % (11.6-14.6); RBC Distribution Width SD 43.8 fl (35.1-43.9); Red Blood Count 4.78 M/mm3 (4.2-5.4); White Blood Count 6.9 K/mm3 (4.4-11.0)
== END | disposition home or self-care (01) ==
LOC: LAB 13:52
PROVIDERS: PCP Nurse Practitioner Family; Referring Provider Internal Medicine Gastroenterology; Visit Provider Internal Medicine Gastroenterology
DX: R11.2 Nausea with vomiting, unspecified (principal)
CPT/HCPCS: 36415; 85025

== ENCOUNTER → 2023-05-29 | Outpatient (CLI) | payer MEDICARE, MEDICAID, SELFPAY ==
--- NOTE | 2023-05-29 18:58 | CT_ITS ---
INDICATION: abdominal pain EXAMINATION: CT Abdomen And Pelvis W/ Contrast Injection TECHNIQUE: Helically acquired images were obtained of the abdomen and pelvis following oral and IV contrast. 2-D reconstructions reviewed. A radiation dose optimization technique was used for this scan. IV Contrast dosage and agent: 100 cc [id number] Oral contrast: Yes COMPARISON: Contrast-enhanced CT abdomen and pelvis from 08/18/2022 FINDINGS: LOWER CHEST: No acute findings within the imaged lung bases. Heart size within normal limits. LIVER: Homogeneous. No concerning lesion. GALLBLADDER AND BILIARY TREE: Status post cholecystectomy. Mild residual biliary ductal ectasia. PANCREAS: No discrete mass or peripancreatic edema. SPLEEN: Spleen is normal size with stable small simple appearing cyst requiring no additional follow-up. ADRENAL GLANDS: Unremarkable. KIDNEYS AND URETERS: Normal renal position. No perinephric edema or hydronephrosis. No concerning lesion. PERITONEUM: No significant free fluid. No peritoneal free air detected. RETROPERITONEUM: No retroperitoneal mass or pathologic fluid collection. BOWEL: Normal appendix along right pelvic sidewall. No bowel obstruction or significant bowel thickening. No focal inflammatory change. LYMPH NODES: No enlarged mesenteric or retroperitoneal lymph nodes. VESSELS: No acute findings. No abdominal aortic aneurysm. URINARY BLADDER: Unremarkable as visualized. REPRODUCTIVE ORGANS: Status post partial hysterectomy. Rim-enhancing, involuted/crenulated 1.7 cm right ovarian cyst. ABDOMINAL WALL: No acute findings or significant hernia defect. BONES: Intact with no suspicious osseous lesion. CT/Abdomen/Pelvis WITH Contrast IMPRESSION: 1. Involuted small right ovarian cyst/follicle with no significant free pelvic fluid. No additional follow-up recommended at this time. 2. No other evidence of acute intra-abdominal abnormality. 3. Other nonurgent findings within body of report. Electronically Signed: Jose Angel Celis MD at 6:19 EDT ,
== END | disposition home or self-care (01) ==
LOC: CT 18:57
PROVIDERS: PCP Nurse Practitioner Family; Referring Provider Internal Medicine Gastroenterology; Visit Provider Internal Medicine Gastroenterology
DX: R10.9 Unspecified abdominal pain (principal)
CPT/HCPCS: 74177; Q9967

== ENCOUNTER → 2023-08-03 | Outpatient (CLI) | payer MEDICARE, MEDICAID, SELFPAY ==
[2023-08-03 09:44] LABS: Hematocrit 45.4 % (37-47); Mean Corpuscular Hgb 30.4 pg (27.0-32.0); Mean Corpuscular Volume 91.9 fL (81-99); Mean Platelet Vol. 9.1 fl (6.2-12.0); Platelet Count 309 K/mm3 (150-450); RBC Distribution Width CV 14.4 % (11.6-14.6); RBC Distribution Width SD 48.4 fl (35.1-43.9); Red Blood Count 4.94 M/mm3 (4.2-5.4); White Blood Count 6.6 K/mm3 (4.4-11.0)
[2023-08-03 10:08] LABS: PTHIN 37.5 pg/mL (18.4-80.1)
[2023-08-03 10:12] LABS: Vitamin D,25 Hydroxy 92.3 ng/mL
[2023-08-03 10:29] LABS: ALB/GLOB Ratio 0.9 RATIO (0.9-2.4); AST(SGOT) 15 U/L (15-37); Alanine Aminotransfer ALT/SGPT 23 U/L (13-56); Albumin, Serum 3.4 g/dL (3.2-5.0); Alkaline Phosphatase 96 U/L (45-117); Anion Gap 5 (5-15); BUN 10 mg/dL (7-18); BUN/Creat Ratio 14.5 RATIO (10-20); Calcium,Total 8.9 mg/dL (8.5-10.1); Chloride 111 mmol/L (98-107); Cholesterol 130 mg/dL (200); Creatinine, Serum 0.69 mg/dL (0.55-1.02); EST Glomerular Filtration Rate 97 mL/min (>60); Est Glom Filt Rate - Afr Amer 118 mL/min (>60); Globulin 3.9 g/dL (2.2-4.2); Glucose 92 mg/dL (74-106); High Density Lipoprotein 46 mg/dL; Potassium 3.8 mmol/L (3.5-5.1); Protein, Total 7.3 g/dL (6.4-8.2); Sodium Level 141 mmol/L (136-145); Thyroid Stim Hormone (TSH) 0.98 uIU/mL (0.358-3.74); Triglycerides 110 mg/dL; Very Low Density Lipoprotein 22 mg/dL (5-40)
== END | disposition home or self-care (01) ==
LOC: LAB 08:42
PROVIDERS: PCP Nurse Practitioner Family; Visit Provider Nurse Practitioner Family
DX: E78.5 Hyperlipidemia, unspecified (principal); D70.9 Neutropenia, unspecified; E27.40 Unspecified adrenocortical insufficiency; E55.9 Vitamin D deficiency, unspecified
CPT/HCPCS: 36415; 80053; 80061; 82306; 83970; 84443; 85027

== ENCOUNTER 2023-08-06 20:26 | Emergency (ER) | payer MEDICARE, MEDICAID, SELFPAY ==
[2023-08-06 20:29] VITALS: BP 121/78; PULSE 87; RESP 16; TEMP 36.2; O2SAT 100; BMI 23.1
--- NOTE | 2023-08-06 20:48 | RAD_ITS ---
INDICATION: pain EXAMINATION/TECHNIQUE: X-RAY - RIGHT XR Femur COMPARISON: XR right hip April 27, 2021 FINDINGS: Frontal and lateral views of the proximal and distal right femur were obtained. No acute fracture is identified. RAD/Femur Min 2 Views IMPRESSION: No acute fracture identified. Electronically Signed: Presley Wset MD at 21:55 EDT ,
--- NOTE | 2023-08-06 20:48 | RAD_ITS ---
INDICATION: pain EXAMINATION/TECHNIQUE: X-RAY - XR Pelvis 1 View COMPARISON: XR right hip April 27, 2021 FINDINGS: A single frontal view of the pelvis was obtained. No acute fracture is identified. RAD/Pelvis 1 or 2 Views IMPRESSION: No acute fracture identified. Electronically Signed: Presley West MD at 21:57 EDT ,
[2023-08-06 21:09] LABS: Absolute Lymphocyte Count 3.37 X10^3/uL (0.83-4.51); Absolute Neutrophil Count 4.3 X10^3/uL (2.0-7.7); Basophil# 0.07 X10^3/uL; Basophil% 0.8 % (0-1); Eosinophil# 0.31 X10^3/uL; Eosinophils% 3.6 % (0-5); Hematocrit 41.7 % (37-47); Lymphocyte # 3.37 X10^3/ul (0.83-4.51); Mean Corp Hgb Conc 33.6 g/dL (32-36); Mean Corpuscular Hgb 30.7 pg (27.0-32.0); Mean Corpuscular Volume 91.4 fL (81-99); Mean Platelet Vol. 8.8 fl (6.2-12.0); Monocyte# 0.57 X10^3/uL; Monocyte% 6.6 % (0-10); NRBC Flagged by Analyzer 0 % (0-5); Neutrophil # 4.29 X10^3/uL (2.7-7.7); Neutrophil % 49.8 % (47-70); Platelet Count 323 K/mm3 (150-450); RBC Distribution Width CV 14.2 % (11.6-14.6); RBC Distribution Width SD 48.1 fl (35.1-43.9); Red Blood Count 4.56 M/mm3 (4.2-5.4); White Blood Count 8.6 K/mm3 (4.4-11.0)
[2023-08-06] MEDS: Ondansetron 4 MG/2 ML Vial IV (21:14)
[2023-08-06] MEDS: Morphine 4 MG/ML Syringe IV (21:14)
--- NOTE | 2023-08-06 21:17 | ED.VIS.LOWEX ---
HPI History of Present Illness Chief Complaint: Lower Extremity Injury Narrative Narrative: 48-year-old female presenting with right hip/femur pain. Patient carrying an air conditioner down unit downstairs and noticed pain. Is unable to walk. Some difficulty moving her leg. She had to be wheelchair into the ED. states that she did not have any direct trauma. [facility] Medical History Abdominal pain Adrenal insufficiency Anxiety and depression Aphagia Arthritis Asthma Back pain Borderline personality disorder Cancer Chronic fatigue syndrome Colitis Contusion, hip Conversion disorder COPD (chronic obstructive pulmonary disease) CVA (cerebral vascular accident) Diarrhea Difficulty swallowing Emphysema/COPD Expressive aphasia Facial droop Fibromyalgia Frequent falls Gait disturbance Gastric reflux History of Crohn's disease History of edema History of migraine History of pain when walking History of pseudoseizure History of TIAs Hyperlipidemia Hypoglycemia Hypotension IBS (irritable bowel syndrome) Ileum ulcer Injury of head and neck Irritable bowel syndrome Ischemic stroke Kidney stones Left hip pain Marijuana use Migraines Night terrors, adult Paresthesia of right arm Post-menopausal Right arm weakness Right hip pain RLS (restless legs syndrome) Seasonal allergies Shortness of breath on exertion Smoker Stroke Stroke-like symptoms Stroke/cerebrovascular accident Swallowing dysfunction Tobacco use Vitamin D deficiency Wears dentures Home Medications cholecalciferol (vitamin D3) 125 mcg (5,000 unit) disintegrating tablet 10,000 unit PO DAILY supplement 12/27/19 [History Last Taken 12/01/22] prazosin 2 mg capsule 2 mg PO QHS 09/20/20 [History Last Taken 12/01/22] vitamin E (dl, acetate) 45 mg (100 unit) capsule 45 mg PO DAILY 07/01/21 [History Last Taken 12/01/22] biotin 10 mg tablet 10 mg PO DAILY 10/15/22 [History Last Taken 12/02/22] fludrocortisone 0.1 mg tablet 0.1 mg PO DAILY HYPOTENSION 10/15/22 [History Last Taken 12/01/22] albuterol sulfate 90 mcg/actuation aerosol inhaler 2 puff inhalation 4X/DAY PRN ASTHMA 01/08/23 [History Last Taken Unknown] atorvastatin 10 mg tablet 10 mg PO DAILY 01/08/23 [History Last Taken Unknown] promethazine 12.5 mg tablet 12.5 mg PO Q8H PRN Nausea 01/08/23 [History Last Taken Unknown] triamcinolone acetonide 55 mcg nasal spray aerosol 2 spray intranasal DAILY ALLERGIES 01/08/23 [History Last Taken Unknown] turmeric root extract 500 mg capsule 500 mg PO DAILY 01/08/23 [History Last Taken Unknown] vitamin B complex 1 tab PO DAILY supplement 01/08/23 [History Last Taken Unknown] diphenoxylate-atropine 2.5 mg-0.025 mg tablet (Lomotil) 1 tab PO Q6H PRN Diarrhea 01/12/23 [History Last Taken Unknown] loperamide 2 mg capsule 2 mg PO Q6H PRN Diarrhea 01/12/23 [History Last Taken Unknown] tizanidine 4 mg capsule (Zanaflex) 4 mg PO BID muscle spasticity 01/12/23 [History Last Taken Unknown] calcium 300 mg chewable tablet 600 mg PO DAILY 02/18/23 [History Last Taken Unknown] fexofenadine 60 mg tablet (Jess Allergy) 60 mg PO BID 02/18/23 [History Last Taken Unknown] multivitamin 1 tab PO DAILY 02/18/23 [History Last Taken Unknown] pantoprazole 40 mg tablet,delayed release (Protonix) 40 mg PO BID #60 tabs 02/26/23 [Rx Last Taken Unknown] amoxicillin 500 mg capsule 1,000 mg (2 x 500 mg) PO Q12H #40 caps 05/13/23 [Rx Last Taken Unknown] rifabutin 150 mg capsule 150 mg PO BID #20 caps 05/13/23 [Rx Last Taken Unknown] scopolamine base 1 mg over 3 days transdermal patch 1 patch transdermal Q3D #10 ea 05/19/23 [Rx Last Taken Unknown] fluconazole 200 mg tablet (Diflucan) 200 mg PO ONCE #1 TAB 06/17/23 [Rx Last Taken Unknown] Allergy/AdvReac Type Severity Reaction Status Date / Time bee pollen Allergy Severe Anaphylaxis Verified 08/06/23 20:29 coconut Allergy Intermediate Eye Verified 08/06/23 20:29 swelling, Rash metronidazole [From Flagyl] Allergy Intermediate Vomiting Verified 08/06/23 20:29 aspirin Allergy Shortness Verified 08/06/23 20:29 of breath bupropion HCl Allergy Other Verified 08/06/23 20:29 [From Wellbutrin] divalproex sodium Allergy Rash Verified 08/06/23 20:29 [From Depakote] doxycycline Allergy Rash Verified 08/06/23 20:29 Gadolinium-MRI Contrast Allergy Hives Verified 08/06/23 20:29 Medium [Gadolinium-Contrast Medium - MRI] ketorolac [From Toradol] Allergy Shortness Verified 08/06/23 20:29 of breath lamotrigine [From Lamictal] Allergy Rash Verified 08/06/23 20:29 latex Allergy Hives Verified 08/06/23 20:29 phenytoin sodium Allergy Hives Verified 08/06/23 20:29 [From Dilantin] phenytoin sodium extended Allergy Hives Verified 08/06/23 20:29 [From Dilantin] pineapple Allergy Swelling, Verified 08/06/23 20:29 Rash corn AdvReac Mild Other Verified 08/06/23 20:29 egg AdvReac Mild Other Verified 08/06/23 20:29 erythromycin base AdvReac Nausea/Vom/ Verified 08/06/23 20:29 Diarrhea quetiapine fumarate AdvReac Other Verified 08/06/23 20:29 [From Seroquel] Sulfa (Sulfonamide AdvReac Vomiting Verified 08/06/23 20:29 Antibiotics) varenicline tartrate AdvReac Vomiting Verified 08/06/23 20:29 [From Chantix] Family History Mother Diabetes Heart disease Hypertension HLD (hyperlipidemia) Depression Myocardial infarction Multiple sclerosis Father , 56 Diabetes Heart disease Hypertension HLD (hyperlipidemia) Asthma Myocardial infarction Sister Cancer Diabetes Grandfather Diabetes Surgical History H/O section H/O knee surgery History of cholecystectomy History of dilation and curettage Hx of colonoscopy Hx of tooth extraction S/P partial hysterectomy Social History adopted: Yes household members: none housing: house current occupational status: disabled Smoking Status: Current every day smoker tobacco type: cigarettes alcohol intake: current alcohol intake frequency: a few times a month Alcohol type: wine substance use type: marijuana caffeine: Yes Type: coffee Number of servings: 1 what type of physical activity do you participate in: other details: home exercises, fishing do you feel safe at home: Yes ROS ROS ED Constitutional Constitutional ED: Denies chills, fever(s) or sweats Eyes Eyes: Denies blurry vision or change in vision ENT ENT ED: Denies ear pain or sore throat Cardiovascular Cardiovascular: Denies chest pain, palpitations or racing heartbeat Respiratory/Chest Respiratory/Chest: Denies cough, dyspnea or sputum Gastrointestinal Gastrointestinal: Denies abdominal pain, constipation, diarrhea, nausea or vomiting Genitourinary Genitourinary ED: Denies dysuria, hematuria or urinary frequency Musculoskeletal Musculoskeletal: Reports other Details: Thigh pain ; Denies arthralgias, myalgias or neck pain Integumentary Denies abscess, Abrasions or rash Neurologic Neurologic: Denies headache(s), paresthesias or weakness Psychiatric Psychiatric: Denies anxiety, depression, suicidal ideation or suicidal thoughts Endocrine Endocrinology: Denies polydipsia or polyuria EXAM Physical Exam Const Vital Signs: 08/06/23 20:29 Temperature 97.1 F L Temperature Source Temporal Pulse Rate 87 Respiratory Rate 16 Blood Pressure 121/78 H Blood Pressure Mean 92 Pulse Ox 100 Positive well nourished HEENT Reports moist mucous membranes Resp normal respiratory effort and no retractions Cardio regular rate and regular rhythm Extremity Extremity Narrative: This to palpation of the distal lateral right thigh. No bruising or swelling. Right knee extensor mechanisms intact. Negative logroll on the right. Neuro oriented x3 and CN's II-XII intact bilaterally Sensorium / Orientation: alert Psych mental status grossly normal Skin no wounds MDM MDM MDM Narrative Medical decision making narrative: 48-year-old female presenting with right hip and right thigh pain. She is tender to palpation on the distal lateral right thigh. Right knee extensor mechanism intact. X-ray of the right hip and femur my interpretation of no acute fractures. Its possible she has a muscle strain here. She was able to get up and ambulate with her walker again and states she feels stable. I recommended compression for this. She has muscle relaxers at home she can take. I recommended anti-inflammatories. CBC and BMP were unremarkable. Impression: 1. Right thigh strain Lab Data Labs: Laboratory Results - last 24 hr 08/06/23 21:05 WBC 8.6 RBC 4.56 Hgb 14.0 Hct 41.7 MCV 91.4 MCH 30.7 MCHC 33.6 RDW Std Deviation 48.1 H RDW Coeff of Yuly 14.2 Plt Count 323 MPV 8.8 Immature Gran % (Auto) 0.200 Neut % (Auto) 49.8 Lymph % (Auto) 39.0 Swisher % (Auto) 6.6 Eos % (Auto) 3.6 Baso % (Auto) 0.8 Absolute Neuts (auto) 4.3 Absolute Lymphs (auto) 3.37 Nucleated RBC % 0 Sodium 141 Potassium 4.0 Chloride 113 H Carbon Dioxide 24.0 Anion Gap 4 L BUN 8 Creatinine 0.62 Estim Creat Clear Calc 93.79 Est GFR (MDRD) Af Amer 133 Est GFR (MDRD) Non-Af 110 BUN/Creatinine Ratio 12.9 Glucose 96 Calcium 8.8 Radiography Diagnostic Testing: Clinical Impression(s) from Imaging Studies Femur X-Ray 08/06/23 20:48 IMPRESSION: No acute fracture identified. Electronically Signed: Presley West MD at 21:55 EDT , Pelvis X-Ray 08/06/23 20:48 IMPRESSION: No acute fracture identified. Electronically Signed: Presley West MD at 21:57 EDT , Discharge Plan Triage Chief Complaint: Lower Extremity Injury ED Provider: Eugene Barahona Dx/Rx/DC Orders Instructions: ED Muscle Strain, Extremity Prescriptions: No Action vitamin E (dl, acetate) 45 mg (100 unit) capsule 45 mg PO DAILY promethazine 12.5 mg tablet 12.5 mg PO Q8H PRN (Reason: Nausea) albuterol sulfate 90 mcg/actuation HFA aerosol inhaler 2 puff inhalation 4X/DAY PRN (Reason: ASTHMA) triamcinolone acetonide 55 mcg aerosol,spray 2 spray intranasal DAILY Rx Instructions: administer into each nostril atorvastatin 10 mg tablet 10 mg PO DAILY turmeric root extract 500 mg capsule 500 mg PO DAILY loperamide 2 mg capsule 2 mg PO Q6H PRN (Reason: Diarrhea) diphenoxylate-atropine [Lomotil] 2.5-0.025 mg tablet 1 tab PO Q6H PRN (Reason: Diarrhea) cholecalciferol (vitamin D3) 5,000 UNIT tablet,disintegrating 10,000 unit PO DAILY vitamin B complex Tablet 1 tab PO DAILY prazosin 2 MG capsule 2 mg PO QHS tizanidine [Zanaflex] 4 mg capsule 4 mg PO BID biotin 10 mg Tablet 10 mg PO DAILY fludrocortisone 0.1 mg tablet 0.1 mg PO DAILY Patient Comments: TAKE 1 TABLET BY MOUTH EVERY DAY multivitamin [Multi-Day] Tablet 1 tab PO DAILY fexofenadine [Jess Allergy] 60 mg Tablet 60 mg PO BID calcium 300 mg Tablet,Chewable 600 mg PO DAILY pantoprazole [Protonix] 40 mg tablet,delayed release (DR/EC) 40 mg PO BID Qty: 60 0RF rifabutin 150 mg capsule 150 mg PO BID Qty: 20 0RF Rx Instructions: take one capsule twice a day for 10 days amoxicillin 500 mg capsule 1,000 mg PO Q12H Qty: 40 0RF Rx Instructions: Take 2 pills (total of 1,000mg) in the morning and then take another 2 pills (total of 1,000mg) in the evening for a total of 4 pills a day (total of 2,000mg of amoxicillin) for 10 days scopolamine base 1 mg over 3 days patch 3 day 1 patch transdermal Q3D Qty: 10 1RF Rx Instructions: change patch and alternate sites every 3 days. fluconazole [Diflucan] 200 mg tablet 200 mg PO ONCE Qty: 1 0RF Primary Care Provider: Tej Whitehead NP Referrals: Tej Whitehead NP, [facility] [Primary Care Provider] - Disposition Disposition: Home, Self Care
[2023-08-06 21:24] LABS: Anion Gap 4 (5-15); BUN 8 mg/dL (7-18); BUN/Creat Ratio 12.9 RATIO (10-20); Calcium,Total 8.8 mg/dL (8.5-10.1); Chloride 113 mmol/L (98-107); Creatinine, Serum 0.62 mg/dL (0.55-1.02); EST Glomerular Filtration Rate 110 mL/min (>60); Est Glom Filt Rate - Afr Amer 133 mL/min (>60); Estimated Creatinine Clearance 93.79 ml/min; Glucose 96 mg/dL (74-106); Sodium Level 141 mmol/L (136-145)
[2023-08-06 22:29] VITALS: PULSE 80; RESP 18
== END 2023-08-06 22:30 | disposition home or self-care (01) ==
PROVIDERS: Emergency Provider Student in an Organized Health Care Education/Training Program; PCP Nurse Practitioner Family; Visit Provider Student in an Organized Health Care Education/Training Program
DX: S76.911A Strain of unspecified muscles, fascia and tendons at thigh level, right thigh, initial encounter (principal); F17.210 Nicotine dependence, cigarettes, uncomplicated; F12.90 Cannabis use, unspecified, uncomplicated; Z86.73 Personal history of transient ischemic attack (TIA), and cerebral infarction without residual deficits; X58.XXXA Exposure to other specified factors, initial encounter
CPT/HCPCS: 72170; 73552; 80048; 85025; 96374; 96375; 99282; A4216; J2405

== ENCOUNTER → 2023-08-12 | Outpatient (CLI) | payer MEDICARE, MEDICAID, SELFPAY ==
[2023-08-14 08:13] LABS: H. PYLORI STOOL AG Positive (Negative)
== END | disposition home or self-care (01) ==
LOC: LABSPEC 12:40
PROVIDERS: PCP Nurse Practitioner Family; Referring Provider Internal Medicine Gastroenterology; Visit Provider Internal Medicine Gastroenterology
DX: A04.8 Other specified bacterial intestinal infections (principal)
CPT/HCPCS: 87338

== ENCOUNTER → 2023-08-28 | Outpatient (CLI) | payer MEDICARE, MEDICAID, SELFPAY ==
--- NOTE | 2023-08-28 09:32 | NM_ITS ---
CLINICAL: 48-year-old female with history of clinical gastroparesis. SEMI-SOLID PHASE 99m Tc SULFUR COLLOID GASTRIC EMPTYING STUDY COMPARISON: None available FINDINGS: The patient was administered 1.1 mCi of 99m Tc sulfur colloid mixed with oatmeal and consumed per os. Image acquisitions in the anterior -posterior projections were obtained for 60 minutes. There is prompt visualization of the stomach. There is no gastroesophageal reflux identified. The T ? raw data emptying was calculated to be 51.74 minutes, (Normal: 12-56 minutes). NM/Gastric Emptying Study IMPRESSION: 1. NORMAL 99m Tc sulfur colloid semi-solid phase (oatmeal) gastric emptying imaging examination. A. There is upper limits of normal and preserved semi-solid phase gastric emptying compared to normal controls. (Hayley et al, J Nucl Med Tech 38: 186, 2010). Electronically Signed: Tej Ruth DO at 8:52 EST ,
== END | disposition home or self-care (01) ==
PROVIDERS: PCP Nurse Practitioner Family; Referring Provider Internal Medicine Gastroenterology; Visit Provider Internal Medicine Gastroenterology
DX: K31.84 Gastroparesis (principal)
CPT/HCPCS: 78264; A9541

== ENCOUNTER 2023-09-27 12:30 | Emergency (ER) | payer MEDICARE, MEDICAID, SELFPAY ==
[2023-09-27 12:35] VITALS: PULSE 94; RESP 16; TEMP 36; O2SAT 97; BMI 24.3
[2023-09-27 12:39] VITALS: BP 131/83; PULSE 74; RESP 20; O2SAT 99
[2023-09-27 12:46] VITALS: BMI 25.3
--- NOTE | 2023-09-27 12:47 | CT_ITS ---
HISTORY: aphasia. TECHNIQUE: Multiple axial images were obtained of the head without intravenous contrast. A radiation dose optimization technique was used for this scan. 230 images. COMPARISON: 12/02/2022. FINDINGS: BRAIN PARENCHYMA: No significant attenuation abnormality. No acute intra-axial hemorrhage. CSF SPACES: Cerebral ventricles, cortical sulci, and other extra-axial CSF spaces within normal limits in size for age with a partially empty sella again seen. No midline shift or other significant mass effect. No acute extra-axial hemorrhage. OTHER: Intact calvarium. No significant air fluid levels in the paranasal sinuses or mastoid air cells. Unremarkable orbits. CT/Brain/Head without Contrast IMPRESSION: No acute intracranial process identified. Electronically Signed: Dian Hollingsworth MD at 13:29 EST ,
--- NOTE | 2023-09-27 12:48 | EKG12_ITS ---
Test Reason : GENERAL Blood Pressure : / mmHG Vent. Rate : 059 BPM Atrial Rate : 059 BPM P-R Int : 136 ms QRS Dur : 082 ms QT Int : 416 ms P-R-T Axes : 070 050 054 degrees QTc Int : 411 ms Sinus bradycardia Otherwise normal ECG Confirmed by LAN SMITH, CONNIE ([id number]), film or videotape editor ESPERANZA ORO ([id number]) on 10/05/2023 6:44:33 AM Referred By: Confirmed By:FLORENCIA MONTENEGRO MD
--- NOTE | 2023-09-27 12:48 | ED.RN ---
DR FIGUEROA NOTIFIED OF PT SX AT 1240, WITH PT HX OF COMPLEX MIGRAINE REPORTS TO HAVE PT SEEN. REPORTS NOT TO CALL A STROKE ALERT AT THIS TIME.
--- NOTE | 2023-09-27 12:54 | EX.ED.DYSGE1 ---
HPI <MARKO Cool - Last Filed: 09/27/23 14:22> History of Present Illness Chief Complaint: Neuro S/Sx Narrative Narrative: 48-year-old female presents with lightheadedness, difficulty speaking, and feeling off balance that started about 20 minutes prior to arrival while she was at the store. She states her boyfriend was concerned and brought her in for evaluation. She has had this happen multiple times in the past. She has a history of ocular migraines and TIA. She states she feels dizzy with moving her eyes around. No visual deficits or diplopia. She denies headache, chest pain, shortness of breath. She sees a neurologist Dr. Galeano for her migraines and the symptoms in the past. PFS <MARKO Cool - Last Filed: 09/27/23 14:22> [facility] Medical History Abdominal pain Adrenal insufficiency Anxiety and depression Aphagia Arthritis Asthma Back pain Borderline personality disorder Cancer Chronic fatigue syndrome Colitis Contusion, hip Conversion disorder COPD (chronic obstructive pulmonary disease) CVA (cerebral vascular accident) Diarrhea Difficulty swallowing Emphysema/COPD Expressive aphasia Facial droop Fibromyalgia Frequent falls Gait disturbance Gastric reflux History of Crohn's disease History of edema History of migraine History of pain when walking History of pseudoseizure History of TIAs Hyperlipidemia Hypoglycemia Hypotension IBS (irritable bowel syndrome) Ileum ulcer Injury of head and neck Irritable bowel syndrome Ischemic stroke Kidney stones Left hip pain Marijuana use Migraines Night terrors, adult Paresthesia of right arm Post-menopausal Right arm weakness Right hip pain RLS (restless legs syndrome) Seasonal allergies Shortness of breath on exertion Smoker Stroke Stroke-like symptoms Stroke/cerebrovascular accident Swallowing dysfunction Tobacco use Vitamin D deficiency Wears dentures Home Medications cholecalciferol (vitamin D3) 125 mcg (5,000 unit) disintegrating tablet 10,000 unit PO DAILY supplement 12/27/19 [History Last Taken 12/01/22] prazosin 2 mg capsule 2 mg PO QHS 09/20/20 [History Last Taken 12/01/22] vitamin E (dl, acetate) 45 mg (100 unit) capsule 45 mg PO DAILY 07/01/21 [History Last Taken 12/01/22] biotin 10 mg tablet 10 mg PO DAILY 10/15/22 [History Last Taken 12/02/22] fludrocortisone 0.1 mg tablet 0.1 mg PO DAILY HYPOTENSION 10/15/22 [History Last Taken 12/01/22] albuterol sulfate 90 mcg/actuation aerosol inhaler 2 puff inhalation 4X/DAY PRN ASTHMA 01/08/23 [History Last Taken Unknown] atorvastatin 10 mg tablet 10 mg PO DAILY 01/08/23 [History Last Taken Unknown] promethazine 12.5 mg tablet 12.5 mg PO Q8H PRN Nausea 01/08/23 [History Last Taken Unknown] triamcinolone acetonide 55 mcg nasal spray aerosol 2 spray intranasal DAILY ALLERGIES 01/08/23 [History Last Taken Unknown] turmeric root extract 500 mg capsule 500 mg PO DAILY 01/08/23 [History Last Taken Unknown] vitamin B complex 1 tab PO DAILY supplement 01/08/23 [History Last Taken Unknown] diphenoxylate-atropine 2.5 mg-0.025 mg tablet (Lomotil) 1 tab PO Q6H PRN Diarrhea 01/12/23 [History Last Taken Unknown] loperamide 2 mg capsule 2 mg PO Q6H PRN Diarrhea 01/12/23 [History Last Taken Unknown] tizanidine 4 mg capsule (Zanaflex) 4 mg PO BID muscle spasticity 01/12/23 [History Last Taken Unknown] calcium 300 mg chewable tablet 600 mg PO DAILY 02/18/23 [History Last Taken Unknown] fexofenadine 60 mg tablet (Jess Allergy) 60 mg PO BID 02/18/23 [History Last Taken Unknown] multivitamin 1 tab PO DAILY 02/18/23 [History Last Taken Unknown] pantoprazole 40 mg tablet,delayed release (Protonix) 40 mg PO BID #60 tabs 02/26/23 [Rx Last Taken Unknown] amoxicillin 500 mg capsule 1,000 mg (2 x 500 mg) PO Q12H #40 caps 05/13/23 [Rx Last Taken Unknown] rifabutin 150 mg capsule 150 mg PO BID #20 caps 05/13/23 [Rx Last Taken Unknown] scopolamine base 1 mg over 3 days transdermal patch 1 patch transdermal Q3D #10 ea 05/19/23 [Rx Last Taken Unknown] fluconazole 200 mg tablet (Diflucan) 200 mg PO ONCE #1 TAB 06/17/23 [Rx Last Taken Unknown] Allergy/AdvReac Type Severity Reaction Status Date / Time bee pollen Allergy Severe Anaphylaxis Verified 08/06/23 20:29 coconut Allergy Intermediate Eye Verified 08/06/23 20:29 swelling, Rash metronidazole [From Flagyl] Allergy Intermediate Vomiting Verified 08/06/23 20:29 aspirin Allergy Shortness Verified 08/06/23 20:29 of breath bupropion HCl Allergy Other Verified 08/06/23 20:29 [From Wellbutrin] divalproex sodium Allergy Rash Verified 08/06/23 20:29 [From Depakote] doxycycline Allergy Rash Verified 08/06/23 20:29 Gadolinium-MRI Contrast Allergy Hives Verified 08/06/23 20:29 Medium [Gadolinium-Contrast Medium - MRI] ketorolac [From Toradol] Allergy Shortness Verified 08/06/23 20:29 of breath lamotrigine [From Lamictal] Allergy Rash Verified 08/06/23 20:29 latex Allergy Hives Verified 08/06/23 20:29 phenytoin sodium Allergy Hives Verified 08/06/23 20:29 [From Dilantin] phenytoin sodium extended Allergy Hives Verified 08/06/23 20:29 [From Dilantin] pineapple Allergy Swelling, Verified 08/06/23 20:29 Rash corn AdvReac Mild Other Verified 08/06/23 20:29 egg AdvReac Mild Other Verified 08/06/23 20:29 erythromycin base AdvReac Nausea/Vom/ Verified 08/06/23 20:29 Diarrhea quetiapine fumarate AdvReac Other Verified 08/06/23 20:29 [From Seroquel] Sulfa (Sulfonamide AdvReac Vomiting Verified 08/06/23 20:29 Antibiotics) varenicline tartrate AdvReac Vomiting Verified 08/06/23 20:29 [From Chantix] Family History Mother Diabetes Heart disease Hypertension HLD (hyperlipidemia) Depression Myocardial infarction Multiple sclerosis Father , 56 Diabetes Heart disease Hypertension HLD (hyperlipidemia) Asthma Myocardial infarction Sister Cancer Diabetes Grandfather Diabetes Surgical History H/O section H/O knee surgery History of cholecystectomy History of dilation and curettage Hx of colonoscopy Hx of tooth extraction S/P partial hysterectomy Social History adopted: Yes household members: none housing: house current occupational status: disabled Smoking Status: Current every day smoker tobacco type: cigarettes alcohol intake: current alcohol intake frequency: a few times a month Alcohol type: wine substance use type: marijuana caffeine: Yes Type: coffee Number of servings: 1 what type of physical activity do you participate in: other details: home exercises, fishing do you feel safe at home: Yes ROS <MARKO Cool - Last Filed: 09/27/23 14:22> ROS ED ROS Narrative Constitutional: Negative for fever, chills, malaise. Eyes: Negative for visual change. CVS: Negative for palpitations, chest pain, syncope. Respiratory: Negative for shortness of breath. GI: Negative for abdominal pain, nausea, vomiting. Neuro: Negative for headache, motor/sensory dysfunction. EXAM <MARKO Cool - Last Filed: 09/27/23 14:22> Physical Exam Narrative Exam Narrative: CONST: Patient sitting in no acute distress. EYES: Normal inspection. PERRL, EOMI, no nystagmus, no visual field deficits. NECK: Normal inspection. RESP: No respiratory distress, CTAB. CVS: Regular rate and rhythm, no murmur, no gallop. SKIN: Color normal, no rash, warm, dry, intact. EXTREMITIES: Normal appearance, no pedal edema. NEURO: Oriented x4. CN II-XII intact. Normal strength and sensation, during finger-nose and [id number]-[id number]-spec she had shaking of her extremities but no ataxia when touching her nose or the target. No upper or lower extremity drift. Her speech is prolonged in getting each word out but they are coherent and pronounced correctly. PSYCH: Normal affect. Const Vital Signs: 09/27/23 12:35 09/27/23 12:39 09/27/23 13:48 Temperature 96.8 F L Temperature Source Temporal Pulse Rate 94 74 70 Respiratory Rate 16 20 H 18 Blood Pressure 131/83 H 124/70 H Blood Pressure Mean 99 88 Pulse Ox 97 99 100 Oxygen Delivery Method Room Air Room Air Room Air 09/27/23 14:24 Temperature Temperature Source Pulse Rate 56 L Respiratory Rate 22 H Blood Pressure 130/78 H Blood Pressure Mean 95 Pulse Ox 98 Oxygen Delivery Method Room Air <Nadeem Thomas MD - Last Filed: 09/27/23 14:31> Physical Exam Const Vital Signs: 09/27/23 12:35 09/27/23 12:39 09/27/23 13:48 Temperature 96.8 F L Temperature Source Temporal Pulse Rate 94 74 70 Respiratory Rate 16 20 H 18 Blood Pressure 131/83 H 124/70 H Blood Pressure Mean 99 88 Pulse Ox 97 99 100 Oxygen Delivery Method Room Air Room Air Room Air 09/27/23 14:24 Temperature Temperature Source Pulse Rate 56 L Respiratory Rate 22 H Blood Pressure 130/78 H Blood Pressure Mean 95 Pulse Ox 98 Oxygen Delivery Method Room Air MDM <MARKO Cool - Last Filed: 09/27/23 14:22> MDM MDM Narrative Medical decision making narrative: History gathered from: Patient and boyfriend Patient had multiple symptoms including facial paresthesias, lightheadedness, aphasia and feeling off balance. She is awake alert stable vital signs. Her speech is prolonged saying each word but the words are correct incoherent. I do not think this is true aphasia. Her NIH is 0. Basic labs are unremarkable and CT brain shows no acute process. On reevaluation patient states she has developed a headache. She has a history of complex migraines as well as conversion disorder and I think her symptoms are most likely secondary to one of these. She was treated with IV Compazine and Benadryl and reevaluated at 2:20 PM. She states her headache is gone and she still speaking completely normally. She is comfortable going home and will follow-up with her neurologist. I do not think she needs admitted for MRI as I do not suspect stroke. She was discharged in stable condition. Lab Data Attestation: I reviewed the patient's lab results. Labs: Laboratory Results - last 24 hr 09/27/23 09/27/23 12:36 12:45 WBC 7.7 RBC 4.71 Hgb 14.8 Hct 43.9 MCV 93.2 MCH 31.4 MCHC 33.7 RDW Std Deviation 49.2 H RDW Coeff of Yuly 14.2 Plt Count 333 MPV 8.2 Immature Gran % (Auto) 0.300 Neut % (Auto) 59.5 Lymph % (Auto) 31.9 [place] % (Auto) 5.6 Eos % (Auto) 1.9 Baso % (Auto) 0.8 Absolute Neuts (auto) 4.6 Absolute Lymphs (auto) 2.46 Nucleated RBC % 0 Sodium 136 Potassium 3.9 Chloride 106 Carbon Dioxide 26.0 Anion Gap 4 L BUN 10 Creatinine 0.78 Estim Creat Clear Calc 74.55 Est GFR (MDRD) Af Amer 103 Est GFR (MDRD) Non-Af 85 BUN/Creatinine Ratio 12.9 Glucose 107 H Calcium 9.2 POC Glucose 104 Radiography Diagnostic Testing: Clinical Impression(s) from Imaging Studies Brain CT 09/27/23 12:47 IMPRESSION: No acute intracranial process identified. Electronically Signed: Dian Hollingsworth MD at 13:29 EST , EKG Initial EKG: Attestation: I personally reviewed and interpreted this EKG as follows: Interpretation: No Acute Injury Pattern and Sinus Bradycardia Comments: Sinus bradycardia at 59 bpm, no ischemic changes <Nadeem Thomas MD - Last Filed: 09/27/23 14:31> MDM MDM Narrative Medical decision making narrative: History gathered from: Patient and boyfriend Patient had multiple symptoms including facial paresthesias, lightheadedness, aphasia and feeling off balance. She is awake alert stable vital signs. Her speech is prolonged saying each word but the words are correct incoherent. I do not think this is true aphasia. Her NIH is 0. Basic labs are unremarkable and CT brain shows no acute process. On reevaluation patient states she has developed a headache. She has a history of complex migraines as well as conversion disorder and I think her symptoms are most likely secondary to one of these. She was treated with IV Compazine and Benadryl and reevaluated at 2:20 PM. She states her headache is gone and she still speaking completely normally. She is comfortable going home and will follow-up with her neurologist. I do not think she needs admitted for MRI as I do not suspect stroke. She was discharged in stable condition. Dr. Thomas: I have personally performed a face to face assessment of the patient and have reviewed the TRUNG Note. I performed a substantive portion of the visit including all aspects of the following. My michelle findings include: History is difficulty with speech with history of atypical migraines, had previous TIAs and cannot take sumatriptan hand, presents with speech difficulty and multiple symptoms regarding entire face paresthesia, lightheadedness, and feeling off balance. Exam is afebrile. Vital signs noted. Regular rate and rhythm. Lungs clear to auscultation bilaterally. Abdomen soft nontender with normal active bowel sounds. Neurological examination nonfocal and nonlateralizing. Paucity of speech. Medical Decision Making: Check CT. Check labs. Patient developed right-sided headache. I do feel that she probably has more of an atypical migraine. After medication, repeat examination showed her rapid improvement in speech, and she feels like she would like to be discharged. She had stated that the only thing that usually helps with her migraines is rest. I feel she be discharged to follow-up with her neurologist and/or primary care. Return instructions reviewed. Disposition is discharged home, in stable condition. Other additions or changes: [None] History & Record Review Discussion w/independent historian: Patient Additional record(s) reviewed:: Prior ED visit Lab Data Labs: Laboratory Results - last 24 hr 09/27/23 09/27/23 12:36 12:45 WBC 7.7 RBC 4.71 Hgb 14.8 Hct 43.9 MCV 93.2 MCH 31.4 MCHC 33.7 RDW Std Deviation 49.2 H RDW Coeff of Yuly 14.2 Plt Count 333 MPV 8.2 Immature Gran % (Auto) 0.300 Neut % (Auto) 59.5 Lymph % (Auto) 31.9 [place] % (Auto) 5.6 Eos % (Auto) 1.9 Baso % (Auto) 0.8 Absolute Neuts (auto) 4.6 Absolute Lymphs (auto) 2.46 Nucleated RBC % 0 Sodium 136 Potassium 3.9 Chloride 106 Carbon Dioxide 26.0 Anion Gap 4 L BUN 10 Creatinine 0.78 Estim Creat Clear Calc 74.55 Est GFR (MDRD) Af Amer 103 Est GFR (MDRD) Non-Af 85 BUN/Creatinine Ratio 12.9 Glucose 107 H Calcium 9.2 POC Glucose 104 Radiography Diagnostic Testing: Clinical Impression(s) from Imaging Studies Brain CT 09/27/23 12:47 IMPRESSION: No acute intracranial process identified. Electronically Signed: Dian Hollingsworth MD at 13:29 EST , Discharge Plan Triage Chief Complaint: Neuro S/Sx ED Midlevel Provider: Lili Richter ED Provider: Nadeem Thomas Dx/Rx/DC Orders Clinical Impression: Aphasia, Migraine Instructions: What Is Aphasia? Prescriptions: No Action vitamin E (dl, acetate) 45 mg (100 unit) capsule 45 mg PO DAILY promethazine 12.5 mg tablet 12.5 mg PO Q8H PRN (Reason: Nausea) albuterol sulfate 90 mcg/actuation HFA aerosol inhaler 2 puff inhalation 4X/DAY PRN (Reason: ASTHMA) triamcinolone acetonide 55 mcg aerosol,spray 2 spray intranasal DAILY Rx Instructions: administer into each nostril atorvastatin 10 mg tablet 10 mg PO DAILY turmeric root extract 500 mg capsule 500 mg PO DAILY loperamide 2 mg capsule 2 mg PO Q6H PRN (Reason: Diarrhea) diphenoxylate-atropine [Lomotil] 2.5-0.025 mg tablet 1 tab PO Q6H PRN (Reason: Diarrhea) cholecalciferol (vitamin D3) 5,000 UNIT tablet,disintegrating 10,000 unit PO DAILY vitamin B complex Tablet 1 tab PO DAILY prazosin 2 MG capsule 2 mg PO QHS tizanidine [Zanaflex] 4 mg capsule 4 mg PO BID biotin 10 mg Tablet 10 mg PO DAILY fludrocortisone 0.1 mg tablet 0.1 mg PO DAILY Patient Comments: TAKE 1 TABLET BY MOUTH EVERY DAY multivitamin [Multi-Day] Tablet 1 tab PO DAILY fexofenadine [Jess Allergy] 60 mg Tablet 60 mg PO BID calcium 300 mg Tablet,Chewable 600 mg PO DAILY pantoprazole [Protonix] 40 mg tablet,delayed release (DR/EC) 40 mg PO BID Qty: 60 0RF rifabutin 150 mg capsule 150 mg PO BID Qty: 20 0RF Rx Instructions: take one capsule twice a day for 10 days amoxicillin 500 mg capsule 1,000 mg PO Q12H Qty: 40 0RF Rx Instructions: Take 2 pills (total of 1,000mg) in the morning and then take another 2 pills (total of 1,000mg) in the evening for a total of 4 pills a day (total of 2,000mg of amoxicillin) for 10 days scopolamine base 1 mg over 3 days patch 3 day 1 patch transdermal Q3D Qty: 10 1RF Rx Instructions: change patch and alternate sites every 3 days. fluconazole [Diflucan] 200 mg tablet 200 mg PO ONCE Qty: 1 0RF Primary Care Provider: Tej Whitehead NP Referrals: Tje Whitehead NP, [facility] [Primary Care Provider] - Activity Restrictions/Additional Instructions: Please follow-up with your neurologist Disposition Disposition: Home, Self Care
[2023-09-27 12:55] LABS: Absolute Lymphocyte Count 2.46 X10^3/uL (0.83-4.51); Absolute Neutrophil Count 4.6 X10^3/uL (2.0-7.7); Basophil# 0.06 X10^3/uL; Basophil% 0.8 % (0-1); Eosinophil# 0.15 X10^3/uL; Eosinophils% 1.9 % (0-5); Hematocrit 43.9 % (37-47); Hemoglobin 14.8 g/dL (12.0-15.0); Lymphocyte # 2.46 X10^3/ul (0.83-4.51); Lymphocyte % 31.9 % (19-41); Mean Corp Hgb Conc 33.7 g/dL (32-36); Mean Corpuscular Hgb 31.4 pg (27.0-32.0); Mean Corpuscular Volume 93.2 fL (81-99); Mean Platelet Vol. 8.2 fl (6.2-12.0); Monocyte# 0.43 X10^3/uL; Monocyte% 5.6 % (0-10); NRBC Flagged by Analyzer 0 % (0-5); Neutrophil % 59.5 % (47-70); Platelet Count 333 K/mm3 (150-450); RBC Distribution Width CV 14.2 % (11.6-14.6); RBC Distribution Width SD 49.2 fl (35.1-43.9); Red Blood Count 4.71 M/mm3 (4.2-5.4); White Blood Count 7.7 K/mm3 (4.4-11.0)
[2023-09-27 12:56] LABS: Bedside Glucose 104 mg/dL (74-106)
[2023-09-27 13:09] LABS: Anion Gap 4 (5-15); BUN 10 mg/dL (7-18); BUN/Creat Ratio 12.9 RATIO (10-20); Calcium,Total 9.2 mg/dL (8.5-10.1); Chloride 106 mmol/L (98-107); Creatinine, Serum 0.78 mg/dL (0.55-1.02); EST Glomerular Filtration Rate 85 mL/min (>60); Est Glom Filt Rate - Afr Amer 103 mL/min (>60); Estimated Creatinine Clearance 74.55 ml/min; Glucose 107 mg/dL (74-106); Potassium 3.9 mmol/L (3.5-5.1); Sodium Level 136 mmol/L (136-145)
[2023-09-27] MEDS: proCHLORPERazine 10 MG/2 ML Vial 5 MG IV (13:45)
[2023-09-27] MEDS: DiphenhydrAMINE 50 MG/ML Syringe 25 MG IV (13:45)
[2023-09-27 13:48] VITALS: BP 124/70; PULSE 70; RESP 18; O2SAT 100
[2023-09-27 14:24] VITALS: BP 130/78; PULSE 56; RESP 22; O2SAT 98
== END 2023-09-27 14:32 | disposition home or self-care (01) ==
PROVIDERS: Physician Assistant; Emergency Provider Emergency Medicine; PCP Nurse Practitioner Family; Visit Provider Emergency Medicine
DX: R47.01 Aphasia (principal); J44.9 Chronic obstructive pulmonary disease, unspecified; G43.909 Migraine, unspecified, not intractable, without status migrainosus; F17.210 Nicotine dependence, cigarettes, uncomplicated; F12.90 Cannabis use, unspecified, uncomplicated; Z86.73 Personal history of transient ischemic attack (TIA), and cerebral infarction without residual deficits
CPT/HCPCS: 70450; 80048; 82962; 85025; 93005; 96374; 96375; 99282; A4216

== ENCOUNTER 2023-10-15 19:33 | Emergency (ER) | payer MEDICARE, MEDICAID, SELFPAY ==
--- NOTE | 2023-10-15 16:45 | RAD_ITS ---
STUDY: X-RAY - RIGHT RADIUS AND ULNA REASON FOR EXAM: Female, 48 years old. fall TECHNIQUE: 4 view(s) of the forearm. COMPARISON: None. FINDINGS: There is no demonstrated soft tissue swelling. Normal visualized radius. Normal visualized ulna. There is no demonstrated acute fracture. RAD/Forearm 2 Views IMPRESSION: Normal x-ray examination of the radius and ulna. Electronically Signed: Stone Jimenez MD at 20:27 EST ,
[2023-10-15 19:37] VITALS: BP 113/85; PULSE 98; RESP 18; TEMP 35.7; O2SAT 99; BMI 24.9
[2023-10-15 19:40] VITALS: BP 113/85; PULSE 98; RESP 18; TEMP 35.7; O2SAT 99
--- NOTE | 2023-10-15 19:45 | RAD_ITS ---
STUDY: X-RAY - PELVIS AND LEFT HIP REASON FOR EXAM: Female, 48 years old. fall TECHNIQUE: 3 views of the pelvis and hip. COMPARISON: Pelvic x-ray dated August 06, 2023 FINDINGS: There is a non-specific bowel gas pattern. Normal visualized soft tissue structures. No visualized fracture or displaced bony fragment. Normal bilateral iliac wings, sacroiliac joints and visualized sacrum. Normal bilateral superior and inferior pubic rami. Normal pubic symphysis. Normal bilateral ischial tuberosities. Normal visualized femoral head. Normal acetabulum. Normal hip joint. RAD/HIP, UNI W/ Pelvis 2-3 Views IMPRESSION: Normal x-ray examination of the pelvis and hip. Electronically Signed: Stone Jimenez MD at 20:29 EST ,
--- NOTE | 2023-10-15 19:45 | RAD_ITS ---
STUDY: X-RAY - RIGHT SHOULDER REASON FOR EXAM: Female, 48 years old. pain TECHNIQUE: 4 view(s) of the shoulder. COMPARISON: None. FINDINGS: Normal glenohumeral articulation. Normal acromioclavicular joint. Normal acromion. Normal humeral head and visualized proximal humerus. The soft tissue structures are unremarkable. There is no demonstrated fracture. Normal visualized pulmonary apex. RAD/Shoulder min 2 Views IMPRESSION: Normal x-ray examination of the shoulder. Electronically Signed: Stone Jimenez MD at 20:30 EST ,
--- OUTSIDE RECORDS SUMMARY | 2023-10-15 20:21 | XMS RPT_ITS | CCD ---
Author Name Unknown Address [address] [place] [address] Organization [facility] Team Providers Care Manager Competitive Intelligence Name Role Phone Iva Gamble Unavailable Monika Salmeron Unavailable Unavailable Unavailable Unavailable Kristian Enriquez Unavailable Unavailable Unavailable Unavailable Unavailable Primary Care Provider Unavailabl e Unavailable Unavailable Kristian Park Unavailable Unavailable Kevon Flynn Unavailable Debra Bingham Unavailable Unavailable Ravinder Aguirre Unavailable Kartik Marshall Unavailable Dian Bingham Unavailable [phone] Tri Castro Unavailable Unavailable Leonidas Lim Unavailable Megha Farmer Unavailable Cecily De Jesus Unavailable Unavailable Tye BERMUDEZ Ellyn Unavailable Ravinder Aguirre Unavailable Kartik Marshall Unavailable Manuel Farmerman Unavailable Kevon Flynn DO S Unavailable Leonidas Lim Unavailable Otilia BERMUDEZ Dian Unavailable [phone] Kristian Park LPN Unavailable Unavailable Slarb ALMAS, Monika Unavailable Unavailable Debra Bingham LPN Unavailable Unavailable Liza PRIMER CHARGER, Cecily Unavailable Unavailable Unavailable Unavailable Matthew BUILDING AND CONSTRUCTION MANAGER, Tri Unavailable Unavailable Wesly Nance Unavailable Lashaun PRIMER CHARGER, Octavia Unavailable Unavailable Vin Lombardi Unavailable Erica Singer DO Unavailable Iva Gamble Unavailable Erica Singer DO Unavailable Wesly Trujillo Primary Care Provider SAMIR CLOTHING BUSHELER - MACHINE PIE MAKER, DAVID Kingsley Primary Care Phys ician Iva Gamble Unavailable SAURABH GARIBAY Referring Unavailable WESLY TRUJILLO Primary Care Unavailable SWAPNIL NORRSI Attending Unavailable Wesly Trujillo Primary Care Provider KOSTA SMITH, JESSICA Attending Unavailable SAMIR CLOTHING BUSHELER - MACHINE PIE MAKER, DAVID Kingsley Primary Care U navailable SAMIR CLOTHING BUSHELER - MACHINE PIE MAKER, DAVID Kingsley Primary Care U navailable SAMIR CLOTHING BUSHELER - MACHINE PIE MAKER, DAVID Kingsley Attending U navailable SAMIR CLOTHING BUSHELER - MACHINE PIE MAKER, DAVID Kingsley Primary Care U navailable SAMIR CLOTHING BUSHELER - MACHINE PIE MAKER, DAVID Kingsley Attending U navailable SAMIR CLOTHING BUSHELER - MACHINE PIE MAKER, DAVID Kingsley Primary Care U navailable KOSTA SMITH, JESSICA Attending Unavailable Allergies Allergy Classification Reported Allergen(s) Allergy Type Date of Onset Reaction(s) Facility Penicillins (antibiotic) (16 sources) Amoxicillin; Translations: [Amoxicillin *PENICILLINS*] Drug Allergy [facility] Work Phone: Sulfonamides (antibiotic) (16 sources) Sulfonamides (Antibiotic); Translations: [Sulfa Drugs] Drug Allergy [facility] Work Phone: (20 sources) Amoxicillin; Translations: [Amoxicillin *PENICILLINS*] Drug Allergy 5 Unknown [facility] Work Phone: (20 sources) Sulfonamides (Antibiotic); Translations: [Sulfa Drugs] allergy to substance [facility] Work Phone: (20 sources) Iodinated Contrast; Translations: [Iodinated Contrast] allergy to substance [facility] Work Phone: Medications Current Medications Medication Drug Class(es) Dates Sig (Normalized) Sig (Original) acetaminophen 500 mg oral tablet (1 source) Start: 01-01-2020 acetaminophen (TYLENOL) tablet 1,000 mg acetaminophen 325 mg / HYDROcodone bitartrate 5 mg oral tablet (20 sources) Opioid Agonist Start: 05-09-2022 End: 05-12-2022 take 1 tablet by mouth every four hours as needed for pain Heidrick 325- 5 mg oral tablet Dose = 1 tab(s), Oral, q4h, PRN for pain, X 3 day(s), # 10 tab(s), 0 Refill(s), Contusion, 55 Start Date: 05/09/22 Stop Date: 05/12/22 Status: Ordered Completed/Discontinued Medications Medication Drug Class(es) Dates Sig (Normalized) Sig (Original) acetaminophen 325 mg / butalbital 50 mg oral tablet (20 sources) Barbiturate Start: 11-01-2013 End: 03-16-2015 take 1 tablet by mouth twice daily as needed BUTALBITAL-ACETAMIN OPHEN, 50-325MG (Oral Tablet) 1 (one) Tablet Tablet two times daily, as needed for 360 days Refills: 0 Ordered: 16-Mar-2015 Monika Salmeron LPN Start : 01-Nov-2013 End : 16-Mar-2015 Discontinued Comments: Medication taken as needed. Problems Active Problems Problem Classification Problem Date Documented Da te Episodic/Chronic Acute cerebrovascular disease (1 source) Ischemic stroke without coma 12-09-2022 Chronic Adjustment disorders (16 sources) Stress; Translations: [Stress] Resolved: 09-23-2021 03-20-2021 Chronic Administrative/social admission (12 sources) Stress Episodic Allergic reactions (20 sources) Allergy; Translations: [Allergic condition] 09-06-2019 Episodic Past or Other Problems Problem Classification Problem Date Documented Da te Episodic/Chronic Abdominal pain (20 sources) Acute abdominal pain; Translations: [Abdominal pain, acute] Onset: 11-05-2022 Resolved: 09-23-2021 03-25-2016 Episodic Results Test Name Value Interpretation Reference Range Facil ity Vital Signs Date Time Vital Sign Value Performing Clinician Facility 08-08-2022 18:13-0400 Diastolic blood pressure 74 mm[Hg] ANTONIETTA GIPSON DO [facility] 08-08-2022 18:13-0400 Heart rate 83 /min ANTONIETTA GIPSON DO [facility] 08-08-2022 18:13-0400 Mean blood pressure 93 mm[Hg] ANTONIETTA GIPSON DO [facility] 08-08-2022 18:13-0400 Respiratory rate 16 /min ANTONIETTA GIPSON DO [facility] 08-08-2022 18:13-0400 Systolic blood pressure 131 mm[Hg] ANTONIETTA GIPSON DO [facility] 08-08-2022 16:58-0400 Body temperature 99.5 [degF] ANTONIETTA GIPSON DO [facility] 08-08-2022 16:58-0400 Diastolic blood pressure 88 mm[Hg] ANTONIETTA GIPSON DO [facility] 08-08-2022 16:58-0400 Heart rate 102 /min ANTONIETTA GIPSON DO [facility] 08-08-2022 16:58-0400 Mean blood pressure 104 mm[Hg] ANTONIETTA GIPSON DO [facility] 08-08-2022 16:58-0400 Respiratory rate 21 /min ANTONIETTA GIPSON DO [facility] 08-08-2022 16:58-0400 Systolic blood pressure 137 mm[Hg] ANTONIETTA GIPSON DO [facility] 05-09-2022 10:52-0400 Diastolic blood pressure 70 mm[Hg] SHAMEKA FERNANDO MD [facility] 05-09-2022 10:52-0400 Heart rate 71 /min SHAMEKA FERNANDO MD [facility] 05-09-2022 10:52-0400 Respiratory rate 16 /min SHAMEKA FERNANDO MD [facility] 05-09-2022 10:52-0400 Systolic blood pressure 119 mm[Hg] SHAMEKA FERNANDO MD [facility] 05-09-2022 09:31-0400 Body height 162 cm SHAMEKA FERNANDO MD [facility] 05-09-2022 09:31-0400 Body temperature 98.24 [degF] SHAMEKA FERNANDO MD [facility] 05-09-2022 09:31-0400 Body weight 55 kg SHAMEKA FERNANDO MD [facility] 05-09-2022 09:31-0400 Diastolic blood pressure 73 mm[Hg] SHAMEKA FERNANDO MD [facility] 05-09-2022 09:31-0400 Heart rate 86 /min SHAMEKA FERNANDO MD [facility] 05-09-2022 09:31-0400 Respiratory rate 16 /min SHAMEKA FERNANDO MD [facility] 05-09-2022 09:31-0400 Systolic blood pressure 104 mm[Hg] SHAMEKA FERNANDO MD [facility] 02-03-2022 09:18-0400 Body height 161.93 cm Monika Salmeron LPN [facility] Work Phone: Encounters Encounter Date Encounter Type Care Provider Facility Start: 09-17-2023 End: 09-18-2023 ambulatory DAVID DAWSON CLOTHING BUSHELER - MACHINE PIE MAKER Facility:B Start: 09-17-2023 End: 09-17-2023 Patient encounter procedure DAVID DAWSON CLOTHING BUSHELER - MACHINE PIE MAKER [facility] Start: 02-03-2023 End: 02-04-2023 ambulatory DAVID DAWSON CLOTHING BUSHELER - MACHINE PIE MAKER Facility:[facility] Start: 11-05-2022 End: 11-10-2022 ambulatory DAVID DAWSON CLOTHING BUSHELER - MACHINE PIE MAKER Facility:[facility] Start: 11-05-2022 End: 11-10-2022 Encounter for gynecological examination (general) (routine) without abnormal findings JESSICA BRAMBILA MD Facility:[facility] Start: 11-05-2022 End: 11-09-2022 Outreach Lab JESSICA BRAMBILA MD [facility] Start: 11-05-2022 End: 11-06-2022 ambulatory JESSICA BRAMBILA MD Facility:[facility] Start: 11-05-2022 End: 11-05-2022 Patient encounter procedure JESSICA BRAMBILA MD [facility] Start: 09-30-2022 End: 09-30-2022 ambulatory SAURABH GARIBAY Facility:[facility] Start: 09-25-2022 End: 09-25-2022 ambulatory [facility] Start: 09-08-2022 End: 09-08-2022 Patient encounter procedure DAVID JOYCEPKINS CLOTHING BUSHELER - MACHINE PIE MAKER [facility] Start: 09-05-2022 End: 09-05-2022 Subsequent hospital visit by physician Mri [facility] (I-Stat/1.5t) Work Phone: Radiology Procedures Date Procedure Procedure Detail Performing Clinician Start: 09-30-2022 Mri brain brain stem w/o contrast material [facility] Provider Start: 03-11-2022 Ecg routine ecg w/least 12 lds i&r only Start: 03-11-2022 Lipid 1996 panel - Serum or Plasma Mri (I-Stat/1.5t) Work Phone: Start: 07-01-2021 End: 07-15-2021 Orthopedic Visit Report Comments: See Note; NOTES: [facility] [address] [place] [id number] OFFICE VISIT Date of Service: 07/01/21 MR#: [id number] Acct: [id number] Name: RAQUEL ROBLEDO Rep #: [id number] : 1975 Provider: Dr. Wesly roldan DO Age/Sex: 46/F [place] [facility] Status: Signed Intake Intake Visit Reasons: phone call - Right hip Allergies bee pollen Allergy (Severe, Verified 07/01/21 11:15) Anaphylaxis coconut Allergy (Intermediate, Verified 07/01/21 11:15) Eye swelling, Rash egg Allergy (Mild, Verified 07/01/21 11:15) Rash, GI cramping aspirin Allergy (Verified 07/01/21 11:15) Shortness of breath bupropion HCl [From Wellbutrin] Allergy (Verified 07/01/21 11:15) Other divalproex sodium [From Depakote] Allergy (Verified 07/01/21 11:15) Rash doxycycline Allergy (Verified 07/01/21 11:15) Rash Gadolinium-MRI Contrast Medium [Gadolinium-Contrast Medium - MRI] Allergy (Verified 07/01/21 11:15) Hives lamotrigine [From Lamictal] Allergy (Verified 07/01/21 11:15) Rash latex Allergy (Verified 07/01/21 11:15) Hives phenytoin sodium [From Dilantin] Allergy (Verified 07/01/21 11:15) Hives phenytoin sodium extended [From Dilantin] Allergy (Verified 07/01/21 11:15) Hives pineapple Allergy (Verified 07/01/21 11:15) Swelling, Rash erythromycin base Adverse Reaction (Verified 07/01/21 11:15) Nausea/Vom/Diarrhea quetiapine fumarate [From Seroquel] Adverse Reaction (Verified 07/01/21 11:15) Other Sulfa (Sulfonamide Antibiotics) Adverse Reaction (Verified 07/01/21 11:15) Vomiting varenicline tartrate [From Chantix] Adverse Reaction (Verified 07/01/21 11:15) Vomiting Medications cholecalciferol (vitamin D3) 10,000 unit PO DAILY 12/27/19 [History Confirmed 07/01/21] gabapentin 300 mg PO TID 12/27/19 [History Confirmed 07/01/21] vitamin B complex 1 ea PO DAILY 12/27/19 [History Confirmed 07/01/21] prazosin 2 mg PO QHS 09/20/20 [History Confirmed 07/01/21] tizanidine 4 mg PO QHS 09/20/20 [History Confirmed 07/01/21] lorazepam 0.5 mg PO DAILY PRN 04/27/21 [History Confirmed 07/01/21] Ajovi IM PRN 07/01/21 [History] ascorbate calcium (vitamin C) 500 mg tablet 500 mg PO .every other day tab 07/01/21 [History Confirmed 07/01/21] calcium carbonate 500 mg calcium (1,250 mg) chewable tablet 500 mg PO DAILY 07/01/21 [History Confirmed 07/01/21] diphenhydramine HCl 25 mg capsule 25 mg PO TID PRN 07/01/21 [History Confirmed 07/01/21] melatonin 5 mg capsule 5 mg PO DAILY cap 07/01/21 [History Confirmed 07/01/21] multivitamin 1 tab PO DAILY 07/01/21 [History Confirmed 07/01/21] promethazine 12.5 mg tablet 12.5 mg PO TID 07/01/21 [History Confirmed 07/01/21] turmeric root extract 1,053 mg tablet 1,076 mg PO DAILY 07/01/21 [History Confirmed 07/01/21] vitamin E (dl, acetate) 45 mg (100 unit) capsule 45 mg PO DAILY 07/01/21 [History Confirmed 07/01/21] [facility] History (Updated 07/01/21 @ 12:[address] Wesly Nance DO) Asthma Emphysema/COPD Fibromyalgia Frequent falls Migraines Surgical History (Updated 04/29/21 @ 10:33 by Amrita Flannery) H/O section H/O knee surgery History of cholecystectomy Family History (Updated 04/29/21 @ 10:33 by Amrita Flannery) Other Adopted Social History (Updated 04/29/21 @ 10:28 by Amrita Flannery) adopted: Yes household members: none housing: house current occupational status: disabled Smoking Status: Current every day smoker tobacco type: cigarettes alcohol intake: never what type of physical activity do you participate in: other details: home exercises, fishing do you feel safe at home: Yes HPI phone call - Right hip Details: Parts of this documentation were recorded by a scribe, this documentation accurately reflects the service provided and the decisions made by me, Dr. Wesly Nance DO 07/01/21 0809. RAQUEL ROBLEDO is a 46 year old F for a telehealth phone visit to discuss her MRI. Patient had a lower extremity MRI on: 05/20/21. Patient states she fell on 06/30/21, patient was attempting to ambulate into her friend's home. Patient's clothing caught on something or tripped over a box. Patient voiced she feels like her hip is popping. Patient when she fell, landed on her right knee and twisted on her way to the pavement. Supplemental Info 05/20/2021 MRI right hip: Focal synovitis measuring 1.5 cm anterior to the right femoral neck otherwise unremarkable Coding Level of Care Code Attention Catina Diagnoses Left hip pain M25.552 Assessment and Plan Assessment and Plan (1) Left hip pain: Status: Acute Plan - Dr. Wesly Nance, DO: Reviewed MRI with patient over the phone there is a small 1.5 cm area of focal synovitis from prior hip injection otherwise MRI is unremarkable there is no significant arthrosis no bony pathology no tendinitis and no concern. I do not recommend continued into injections into the left hip as there is no arthrosis. No further treatment in regards to an orthopedic surgical nature is needed in regards to the left hip. telphone cpt [id number] 07/01/21 1227 <Electronically signed by Wesly Nance DO> Date Wesly Nance DO Cosigner Signature: Date (if applicable) CC: SECURITY DELIVERY SPECIALIST-C Iva Gamble MACHINE PIE MAKER Work Phone: Start: 06-20-2021 End: 06-20-2021 SOC Tele EEG Read/Int-PSN ONLY Comments: See Note; NOTES: [facility] Medical Records Department [address] [place] [address] Telemedicine Confirmation Receipt 06/20/21 MR#: [id number] Acct: [id number] Name: RAQUEL ROBLEDO Rep #: [id number] : 1975 46 From: Kartik Marshall MD PCP: ERIK Covington Status:REG CLI [facility] has confirmed receipt of a request for visit. This document confirms receipt of the order initiating the consult. To find the results of the consultation, please view the patient's reports for the scanned Telemed Consult. Kartik Marshall Work Phone: Start: 05-20-2021 End: 05-21-2021 Lower Ext Joint Only (Routine) Comments: See Note; NOTES: [facility] Imaging Services [address] [place] [address] Lower Ext Joint Only (Routine) MR#: [id number] Acct: [id number] Name: RAQUEL ROBLEDO Rep #: [id number] : 1975 F 46 From: Robe Kingsley PCP: ERIK Covington Status: REG CLI Study: Lower Ext Joint Only (Routine) Date of Exam: 0 05/20/21 Exam# [id number] Ordering Dr: Wesly Nance DO STUDY: MRI RIGHT HIP REASON FOR EXAM: Right hip pain for years, increased in the last 2 years. TECHNIQUE: Standardized fat and water weighted pulse sequences were obtained in all 3 orthogonal planes. COMPARISON: Radiographs 04/27/2021. FINDINGS: There is focal synovitis anterior to the right femoral neck (T2 axial images 14, 15; proton-density sagittal image 11) measuring approximately 1.5 cm in length. Normal acetabulum. Normal labrum. Normal femoral head. Normal femoral neck and intratrochanteric region. Normal gluteus minimus, medius and iliopsoas tendons and distal insertions. There is no trochanteric, iliopsoas or iliopectineal bursitis. Normal superior and inferior pubic rami. Normal pubic symphysis. Normal ischial tuberosity. Normal origin of the hamstring tendons. Normal visualized iliac wing, sacroiliac joint, and sacral ala. Normal visualized soft tissue structures of the pelvis. MRI/Lower Ext Joint Only (Routine) IMPRESSION: Focal synovitis of the right hip. Otherwise, unremarkable MRI of the right hip. Electronically Signed: Robe Smith MD at 8:49 EDT Tel , Service support , CC: ERIK Gamble; Dr. Wesly Nance DO Shift Stacker: Signed Wesly Nance Work Phone: Start: 04-29-2021 End: 04-29-2021 Orthopedic Visit Report Comments: See Note; NOTES: [facility] [address] [place] [address] OFFICE VISIT Date of Service: 04/29/21 MR#: [id number] Acct: [id number] Name: RAQUEL ROBLEDO Rep #: [id number] : 1975 Provider: Dr. Wesly roldan DO Age/Sex: 45/F [place] [facility] [place] Status: Signed Intake Vital Signs 04/29/21 10:16 Height 5 ft 3 in Weight: 124 lb 8 oz BMI 22.0 Intake Visit Reasons: RIGHT HIP Accompanied by: Self Is patient in pain?: Yes Allergies bee pollen Allergy (Severe, Verified 04/29/21 10:18) Anaphylaxis coconut Allergy (Intermediate, Verified 04/29/21 10:18) Eye swelling, Rash egg Allergy (Mild, Verified 04/29/21 10:18) Rash, GI cramping aspirin Allergy (Verified 04/27/21 10:06) Shortness of breath bupropion HCl [From Wellbutrin] Allergy (Verified 04/27/21 10:06) Other divalproex sodium [From Depakote] Allergy (Verified 04/27/21 10:06) Rash doxycycline Allergy (Verified 04/27/21 10:06) Rash Gadolinium-MRI Contrast Medium [Gadolinium-Contrast Medium - MRI] Allergy (Verified 04/27/21 10:06) Hives lamotrigine [From Lamictal] Allergy (Verified 04/27/21 10:06) Rash latex Allergy (Verified 04/27/21 10:06) Hives phenytoin sodium [From Dilantin] Allergy (Verified 04/27/21 10:06) Hives phenytoin sodium extended [From Dilantin] Allergy (Verified 04/27/21 10:06) Hives pineapple Allergy (Verified 04/29/21 10:34) Swelling, Rash erythromycin base Adverse Reaction (Verified 04/27/21 10:06) Nausea/Vom/Diarrhea quetiapine fumarate [From Seroquel] Adverse Reaction (Verified 04/27/21 10:06) Other Sulfa (Sulfonamide Antibiotics) Adverse Reaction (Verified 04/27/21 10:06) Vomiting varenicline tartrate [From Chantix] Adverse Reaction (Verified 04/27/21 10:06) Vomiting Medications cholecalciferol (vitamin D3) 10,000 unit PO DAILY 12/27/19 [History Confirmed 04/29/21] gabapentin 300 mg PO TID 12/27/19 [History Confirmed 04/29/21] meloxicam 15 mg PO QHS 12/27/19 [History Confirmed 04/29/21] vitamin B complex 1 ea PO DAILY 12/27/19 [History Confirmed 04/29/21] prazosin 2 mg PO QHS 09/20/20 [History Confirmed 04/29/21] tizanidine 4 mg PO QHS 09/20/20 [History Confirmed 04/29/21] hydrocodone-acetaminophen 1 tab PO Q4H PRN PRN 2 Days #10 tablet 04/27/21 [Rx Confirmed 04/29/21] lorazepam 0.5 mg PO DAILY PRN 04/27/21 [History Confirmed 04/29/21] [facility] Medical History (Updated 04/29/21 @ 11:[address] Wesly Nance DO) Asthma Emphysema/COPD Fibromyalgia Migraines Surgical History (Updated 04/29/21 @ 10:33 by Amrita Flannery) H/O section H/O knee surgery History of cholecystectomy Family History (Updated 04/29/21 @ 10:33 by Amrita Flannery) Other Adopted Social History (Updated 04/29/21 @ 10:28 by Amrita Flannery) adopted: Yes household members: none housing: house current occupational status: disabled Smoking Status: Current every day smoker tobacco type: cigarettes Years smoked: 25 alcohol intake: never what type of physical activity do you participate in: other details: home exercises, fishing do you feel safe at home: Yes HPI RIGHT HIP Details: Parts of this documentation were recorded by a scribe, this documentation accurately reflects the service provided and the decisions made by me, Dr. Wesly Nance DO 04/29/21 0746. RAQUEL ROBLEDO is a 45 year old F here today to establish as a New patient. Referred by Iva Gamble NP for right hip pain will bring her disc. Patient brought in an imaging disc with her today of an MRI of her lumbar spine, done 09/17/2020. Patient voiced she heard a story of her climbing a clothes line as a child, and fell on bricks with her hip. Patient voiced her hip was put back into place when she was 20 years old. Pain has been constant for the past two years. Patient describes her pain: inside the right hip with some radiation of groin pain. Has tried CBD oil topically, and doing CBD oil baths. Patient voiced she fell over the weekend, went to [facility] ER and had x-rays of her hip/pelvis on 04/27/21. Last recent fall, 04/28/21. Patient was prescribed hydrocodone-acetaminophen 5/325mg and patient voiced she has been breaking the tablets in half. Patient has previously done at home physical therapy in the past year and has failed anti- inflammatories. Patient continues to do the exercises at home. Patient sees Dr. Marshall, neurologist dx her with post concussion syndrome, Patient describes it as a neurological issue where her brain and her eyes and brain do not communicate together. Patient has a h/o frequent falls. Patient voiced she has been seeing Dr. Farmer, and has a h/o tx with injections, with her hip joint and SI joint through his office. neither provided temporary or lasting relief Patient also has seen day care aide in the past for a few years. Patient has a dx of fibromyalgia. Patient voiced she gets infusions of lidocaine q3-4 weeks, by Dr. Stanley for her fibromyalgia. Patient has a h/o stage 3 cervical cancer in 2003. Removed cervix and removed her uterus as well. Of note patient has severe fear anxiety. She is having anxiety attack about being in our large waiting room with 3 other individuals. Then had anxiety attack when the automatic light turned off in her room. ROS Const Reports frequent falls and Reports weakness ENT Reports disequilibrium Musc Reports system reviewed and no additional complaints, except as documented, Reports as per HPI and Reports abnormal gait Details: ambulating with a cane Neuro Yes system reviewed and no additional complaints, except as documented, Yes as per HPI, Yes abnormal gait, Yes disequilibrium, Yes frequent falls and Yes weakness Ortho Exam General General: Yes no acute distress and Yes well groomed Neurologic: Yes alert and Yes oriented x3 Psychologic: Yes reasonable and appropriate Right Hip Date of injury: 04/28/21 Special Tests: Yes TTP Greater Troch and Yes TTP Greater sciatic notch HIP: Patient has histrionic personality Pain is out of proportion patient's tender in a nondermatomal or anatomic pattern Palpable pedal pulses troch bursa tenderness AIIS, iliac crest and basically global tenderness There is no masses erythema signs of infection or skin concern weakness with hip flexion, possible secondary to pain severe pain with internal external rotation or hip flexion extension Supplemental Info Personally reviewed the patient's medical history, medications, surgeries and recent exams if available. Explained to patient her x-rays present normal, no arthritis is present. Explained to the patient, based on examination will order an MRI of her hip today. If patient has something that is not structurally wrong, will have to send her to a specialist. All questions answered. Patient in agreement of plan. Follow up after her MRI or sooner if pain, swelling, numbness or associated symptoms, or concerns develop. Coding Level of Care Code 20155 Diagnoses Right hip pain M25.551 Assessment and Plan Assessment and Plan (1) Right hip pain: Status: Acute Plan - Dr. Wesly Nance, DO: Personally reviewed the patient's medical history, medications, surgeries and recent exams if available. At this point patient's pain seems to be out of proportion she does have fibromyalgia and severe anxiety disorder. There is no structural concern on radiographs however with her cervical cancer history failure of conservative treatment with physical therapy anti-inflammatories and injection therapy we will order MRI to rule out any underlying pathology. I explained her if there is not a structural problem here there will be limited treatment from an orthopedic surgical standpoint. Offered patient open MRI secondary to claustrophobia and anxiety she is unwilling to travel for this and therefore prefers regular closed MRI. All questions answered. Patient in agreement of plan. Follow up after her MRI or sooner if pain, swelling, numbness or associated symptoms, or concerns develop. Will forward a copy of today's note to Iva Cedenoedelmira 04/29/21 1127 <Electronically signed by Wesly Nance DO> Date Wesly Nance DO Cosigner Signature: Date (if applicable) CC: Iva Gamble [employer]ACHINE PIE [employer] Work Phone: Start: 04-27-2021 End: 04-27-2021 HIP, UNI W/ Pelvis 2-3 Views Comments: See Note; NOTES: [facility] Imaging Services [address] [place] [address] HIP, UNI W/ Pelvis 2-3 Views MR#: [id number] Acct: [id number] Name: FERCHORAQUEL YOVANI Rep #: [id number] : 1975 F 45 From: Vin Sloan MD PCP: Iva Gamble, SECURITY DELIVERY SPECIALIST-C Status: [facility] ER Study: HIP, UNI W/ Pelvis 2-3 Views Date of Exam: 08/08 Exam# [id number] Ordering Dr: Tyson Verde DO STUDY: X-RAY - PELVIS AND RIGHT HIP REASON FOR EXAM: Female, 45 years old. Fall, right hip pain TECHNIQUE: 3 views of the pelvis and right hip. COMPARISON: 09/20/20 FINDINGS: There is a non-specific bowel gas pattern. Normal visualized soft tissue structures. Normal bilateral iliac wings, sacroiliac joints and visualized sacrum. Normal bilateral superior and inferior pubic rami. Normal pubic symphysis. Normal bilateral ischial tuberosities. Normal visualized femoral head. Normal acetabulum. Normal hip joint. RAD/HIP, UNI W/ Pelvis 2-3 Views IMPRESSION: Normal x-ray examination of the pelvis and right hip. Electronically Signed: Vin Sloan MD at 10:49 EDT Tel , Service support , CC: ERIK Gamble; Dr. Tyson Verde DO Shift Stacker: Signed Iva Gamble CNP Work Phone: Start: 04-27-2021 End: 04-27-2021 Emergency Department Summary Comments: See Note; NOTES: [facility] Medical Records Department [address] [place] [address] Emergency Department Summary 04/27/21 MR#: [id number] Acct: [id number] Name: RAQUEL ROBLEDO Rep #: [id number] : 1975 45 From: Tyson Verde DO PCP: ERIK Covington Status:DEP ER Location: ED HPI History of Present Illness Chief Complaint: Fall Detail of Chief Complaint: Fall with injury to right hip that occurred today Informant: patient Narrative Narrative: Patient presents to the emergency department after sustaining a fall today and injuring her right hip. Patient states that she was in the bathroom changing of some shorts when she got one of her dizzy spells and fell hitting her right hip against the tub. Patient has history of chronic right hip pain and is scheduled to see orthopedics in 2 days. Patient states that she had an MRI few weeks ago of the hip and she thinks it showed a lot of arthritic changes. Patient also in pain management and has had injections into the hip in the past but nothing seems to help. Patient has basically taking ibuprofen and Tylenol at home. She states she had a hard time getting up after her fall because of the amount of pain she was having. Patient denies any other injuries. 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 [facility] Medical History (Updated 04/27/21 @ 12:[address] Tyson Verde, ) Fibromyalgia Home Medications albuterol sulfate [Ventolin HFA] 1 - 2 puff INHALATION Q4H PRN PRN 12/05/15 [History Last Taken Unknown] cholecalciferol (vitamin D3) 10,000 unit PO DAILY 12/27/19 [History Last Taken 12/26/19] gabapentin 300 mg PO TID 12/27/19 [History Last Taken 12/26/19 22:00] meloxicam 15 mg PO QHS 12/27/19 [History Last Taken 12/25/19] multivitamin 1 ea PO DAILY 12/27/19 [History Last Taken 12/26/19] sumatriptan succinate 100 mg PO DAILY PRN PRN 12/27/19 [History Last Taken 12/25/19] vitamin B complex 1 ea PO DAILY 12/27/19 [History Last Taken 12/26/19] acetaminophen 650 mg PO Q6H PRN PRN tab 12/28/19 [Rx Last Taken Unknown] fremanezumab-vfrm 225 mg SQ QMONTH 09/20/20 [History Last Taken Unknown] prazosin 2 mg PO QHS 09/20/20 [History Last Taken Unknown] tizanidine 4 mg PO QHS 09/20/20 [History Last Taken Unknown] hydrocodone-acetaminophen 1 tab PO Q4H PRN PRN 2 Days #10 tablet 04/27/21 [Rx Last Taken Unknown] lorazepam 0.5 mg PO DAILY PRN 04/27/21 [History Last Taken Unknown] Allergy/AdvReac Type Severity Reaction Status Date / Time aspirin Allergy Shortness Verified 04/27/21 10:06 of breath bupropion HCl Allergy Other Verified 04/27/21 10:06 [From Wellbutrin] divalproex sodium Allergy Rash Verified 04/27/21 10:06 [From Depakote] doxycycline Allergy Rash Verified 04/27/21 10:06 Gadolinium-MRI Contrast Allergy Hives Verified 04/27/21 10:06 Medium [Gadolinium-Contrast Medium - MRI] lamotrigine [From Lamictal] Allergy Rash Verified 04/27/21 10:06 latex Allergy Hives Verified 04/27/21 10:06 phenytoin sodium Allergy Hives Verified 04/27/21 10:06 [From Dilantin] phenytoin sodium extended Allergy Hives Verified 04/27/21 10:06 [From Dilantin] erythromycin base AdvReac Nausea/Vom/ Verified 04/27/21 10:06 Diarrhea quetiapine fumarate AdvReac Other Verified 04/27/21 10:06 [From Seroquel] Sulfa (Sulfonamide AdvReac Vomiting Verified 04/27/21 10:06 Antibiotics) varenicline tartrate AdvReac Vomiting Verified 04/27/21 10:06 [From Chantix] Social History Smoking Status: Current every day smoker tobacco type: cigarettes ROS ROS ED ROS Narrative Intermittent dizziness Constitutional Constitutional ED: Reports systems reviewed and no addt'l complaints, except as documented; Denies body ache(s), change in weight or chills Eyes Eyes: Denies acute decrease in peripheral vision, change in vision, double vision or loss of vision ENT ENT ED: Reports none; Denies ear pain, lip swelling, loss taste/smell, neck pain, otalgia or sore throat Cardiovascular Cardiovascular: Reports none; Denies abdominal pain, chest pain with activity, leg edema, lightheadedness, palpitations, rapid heart rate or syncope Respiratory/Chest Respiratory/Chest: Reports none; Denies change in mental status, dry cough, dyspnea, hemoptysis, shortness of breath at rest or shortness of breath with exertion Gastrointestinal Gastrointestinal: Reports none; Denies abdominal pain, change in stool character, diarrhea, hematemesis, hematochezia, melena, rectal bleeding or vomiting Genitourinary Genitourinary ED: Reports none; Denies abdominal discomfort, anuria, dysuria, genital pain or polyuria Musculoskeletal Musculoskeletal: Reports none and other Details: Right hip pain ; Denies arthralgias, back pain, difficulty walking, extremity pain, muscle weakness or myalgias Integumentary Reports none; Denies abscess or rash Neurologic Neurologic: Reports none; Denies abnormal gait, confusion, focal weakness, frequent falls, headache(s), loss of vision, numbness, paresthesias, radicular pain, vertigo or weakness Psychiatric Psychiatric: Reports systems reviewed and no addt'l complaints, except as documented and none; Denies behavioral changes, confusion, difficulty concentrating, hallucinations, suicidal ideation, tactile hallucinations or visual hallucinations Endocrine Endocrinology: Denies none, cold intolerance, excessive sweating, fatigue or heat intolerance Hematologic/Lymphatic Hematologic/Lymphatic: Reports none; Denies anemia, easy bleeding or easy bruising Allergic/Immunologic Allergic/Immunologic ED: Denies as per HPI, none, lip swelling, mouth swelling, throat swelling, tongue swelling or hives EXAM Physical Exam Const Vital Signs: 04/27/21 10:07 04/27/21 10:15 Temperature 96.8 F L Temperature Source Temporal Pulse Rate 111 H Respiratory Rate 16 Respiratory Effort Normal Blood Pressure 97/68 Blood Pressure Mean 77 Pulse Ox 99 Oxygen Delivery Method Room Air Room Air Positive well nourished and well developed General Appearance ED: well developed and NAD HEENT Reports TM's clear and moist mucous membranes normocephalic and atraumatic; Negative for trauma or tenderness Tympanic Membrane ED: Yes TM's clear Eyes PERRL and EOMs intact bilaterally General Eye ED: Negative for pale conjunctiva or scleral icterus Neck no lymphadenopathy, supple and no JVD General: Negative for tenderness Chest Wall inspection of chest normal and palpation of chest normal Chest: Negative for tenderness Resp normal respiratory effort and clear to auscultation bilaterally Effort and Inspection: Negative for respiratory distress or pain with movement Auscultation: Negative for rhonchi, wheezes or diminished lung sounds Cardio regular rate, regular rhythm, S1 normal heart sound, S2 normal heart sound and no murmurs Peripheral Pulses: pulses 2+ throughout GI normal to inspection, nondistended, normoactive bowel sounds, soft to palpation, non-tender, non- distended and no masses Back/Spine no CVA tenderness and no thoracic nor lumbar tenderness Extremity normal to inspection Extremity Narrative: No external evidence of trauma to her hip. There is no ecchymosis or bruising noted. Patient does have tenderness over the hip and right ilium. No shortening or external rotation noted. She is neurovascular intact distally. General Extremety ED: Yes tenderness; Negative for edema General Extremity: Negative for edema Neuro oriented x3, CN's II-XII intact bilaterally, no sensory deficits noted and gait normal Sensorium / Orientation: awake, alert, oriented to person, oriented to place and oriented to time Motor Exam: strength 5/5 throughout and strength abnormal Psych mental status grossly normal Skin no rashes or lesions noted and no wounds MDM MDM MDM Narrative Medical decision making narrative: Patient given 1 Heidrick for pain. Her dizziness is chronic I did not feel needed further work-up. She will follow up with orthopedics in 2 days she already has the appointment scheduled. Patient will be given a prescription for few Heidrick for pain. Radiography Diagnostic Testing: Radiology Impression Hip/Pelvis X-Ray 04/27/21 10:30 IMPRESSION: Normal x-ray examination of the pelvis and right hip. Electronically Signed: Vin Sloan MD at 10:49 EDT Tel , Service support , Three-view x-rays of right hip and pelvis obtained interpreted by myself as no acute fractures. Radiology in agreement. Discharge Plan Triage Chief Complaint: Fall Other Complaint: Dizziness ED Provider: Tyson Verde Dx/Rx/DC Orders Clinical Impression: Contusion of hip, right Instructions: ED Hip Contusion Prescriptions: New hydrocodone-acetaminophen [hydrocodone-acetaminophen] 1 TABLET tablet 1 tab PO Q4H PRN PRN (Reason: Pain) 2 Days Qty: 10 RF: 0 No Action albuterol sulfate [Ventolin HFA] 1 INHALER inhaler 1 - 2 puff inhalation Q4H PRN PRN (Reason: Shortness Of Breath) RF: 0 gabapentin 300 MG capsule 300 mg PO TID RF: 0 cholecalciferol (vitamin D3) 5,000 UNIT tablet,disintegrating 10,000 unit PO DAILY RF: 0 sumatriptan succinate 100 MG tablet 100 mg PO DAILY PRN PRN (Reason: migraines) RF: 0 multivitamin 1 EACH tablet 1 ea PO DAILY RF: 0 meloxicam 15 MG tablet 15 mg PO QHS RF: 0 vitamin B complex 1 EACH tablet 1 ea PO DAILY RF: 0 acetaminophen 325 MG tablet 650 mg PO Q6H PRN PRN (Reason: Headache) RF: 0 prazosin 2 MG capsule 2 mg PO QHS RF: 0 tizanidine 4 MG capsule 4 mg PO QHS RF: 0 fremanezumab-vfrm 225 MG/1.5 ML syringe 225 mg SQ QMONTH RF: 0 lorazepam 0.5 mg tablet 0.5 mg PO DAILY PRN (Reason: Anxiety) RF: 0 Primary Care Provider: Iva Gamble NP Referrals: Wesly Nance DO [STAFF PHYSICIAN] - 2 Days Iva Gamble NP, SECURITY DELIVERY SPECIALIST-C [Primary Care Provider] - Disposition Disposition: Home, Self Care What to do if you have Problems For any increased pain, shortness of breath, bleeding, nausea or vomiting, chest pain, or any unexpected problems, contact your Primary Care Provider. Call [facility] ([phone]) or report to the closest Emergency Room. Call 911 if necessary. 04/27/21 1637 <Electronically signed by Tyson Verde DO> Cosigner Signature (if applicable): CC: SECURITY DELIVERY SPECIALIST-C Iva Gamble Signed Iva Gamble [facility] Work Phone: Start: 09-20-2020 End: 09-20-2020 HIP, UNI W/ Pelvis 2-3 Views Comments: See Note; NOTES: [facility] Imaging Services [address] [place] [id number] HIP, UNI W/ Pelvis 2-3 Views MR#: [id number] Acct: [id number] Name: RAQUEL ROBLEDO Rep #: [id number] : 1975 F 45 From: Stone briggs MD PCP: ERIK Covington Status: REG ER Study: HIP, UNI W/ Pelvis 2-3 Views Date of Exam: 01/05 Exam# [id number] Ordering Dr: Elle Enrique MD STUDY: X-RAY - PELVIS AND RIGHT HIP REASON FOR EXAM: Female, 45 years old. fall down stairs, right hip pain TECHNIQUE: 3 views of the pelvis and hip. COMPARISON: None. FINDINGS: There is a non-specific bowel gas pattern. Normal visualized soft tissue structures. No visualized fracture or displaced bony fragment. Normal bilateral iliac wings, sacroiliac joints and visualized sacrum. Normal bilateral superior and inferior pubic rami. Normal pubic symphysis. Normal bilateral ischial tuberosities. Normal visualized femoral head. Normal acetabulum. Normal hip joint. RAD/HIP, UNI W/ Pelvis 2-3 Views IMPRESSION: Normal x-ray examination of the pelvis and hip. Electronically Signed: Stone Jimenez MD at 17:15 EST , Service support , CC: ERIK Gamble; Dr. Elle Enrique MD Shift Stacker: Signed Iva Gamble Start: 09-20-2020 End: 09-21-2020 Emergency Department Summary Comments: See Note; NOTES: [facility] Medical Records Department [address] [place] [address] Emergency Department Summary 09/20/20 MR#: [id number] Acct: [id number] Name: RAQUEL ROBLEDO Rep #: [id number] : 1975 45 From: Elle Enrique MD PCP: ERIK Covington Status:DEP ER History of Present Illness Chief Complaint: Fall Informant: Patient Occurred: Yesterday Mechanism/Context: - - my leg gave out while I was on the steps, and I fell down them Fall down steps #: 1 flight Location: right hip/pelvis and knee, right forearm and wrist Quality of Pain: Aching Current Severity: Severe Maximum Severity: Severe Worsened by: movement, trying to WB RLE Relieved by: rest and remaining still Associated Symptoms: Inability to ambulate. Negative for: Parasthesias, Weakness, Loss of function, Loss of consciousness, Amnesia Narrative: Patient states she has been worked up for multiple sclerosis due to her leg giving out on occasion, this occurred last night and caused her to fall down a flight of steps. She did not have any type of walking assist device with her. She remembers trying to catch herself with her right hand, but landed mostly on her right hip area. She thinks she twisted her right knee as well. She has had trouble walking since then and needed someone to carry her back up the steps to her apartment after the fall. - Past Medical History (1) Fibromyalgia Status: Chronic (2) Anxiety and depression Status: Chronic (3) COPD (chronic obstructive pulmonary disease) Status: Chronic (4) History of migraine Status: Chronic (5) History of pseudoseizure Status: Chronic (6) Irritable bowel syndrome Status: Chronic Comment: As reported by patient Past Medical History - Allergies and Home Meds Allergies/Adverse Reactions: Allergies bupropion HCl [From Wellbutrin] Allergy (Verified 09/20/20 15:57) Other divalproex sodium [From Depakote] Allergy (Verified 09/20/20 15:57) Rash doxycycline Allergy (Verified 09/20/20 15:57) Rash Gadolinium-MRI Contrast Medium [Gadolinium-Contrast Medium - MRI] Allergy (Verified 09/20/20 15:57) Hives lamotrigine [From Lamictal] Allergy (Verified 09/20/20 15:57) Rash latex Allergy (Verified 09/20/20 15:57) Hives phenytoin sodium [From Dilantin] Allergy (Verified 09/20/20 15:57) Hives phenytoin sodium extended [From Dilantin] Allergy (Verified 09/20/20 15:57) Hives erythromycin base Adverse Reaction (Verified 09/20/20 15:57) Nausea/Vom/Diarrhea quetiapine fumarate [From Seroquel] Adverse Reaction (Verified 09/20/20 15:57) Other Sulfa (Sulfonamide Antibiotics) Adverse Reaction (Verified 09/20/20 15:57) Vomiting varenicline tartrate [From Chantix] Adverse Reaction (Verified 09/20/20 15:57) Vomiting Primary Care Physician: Iva Gamble SECURITY DELIVERY SPECIALIST, SECURITY DELIVERY SPECIALIST-C [Primary Care Provider] - Surgical History: - - D C x2, cholecystectomy, partial hysterectomy, x4. Smoking Status: Current every day smoker - Family History Maternal Family History: Reports: Diabetes, High Cholesterol, Heart Disease, Hypertension Paternal Family History: Reports: Diabetes, High Cholesterol, Heart Disease, Hypertension Review of Systems General: Denies: Chills, Fever, Sweats Eyes: Denies: Visual changes - bilaterally, Diplopia ENT: Denies: Bilateral ear pain, Rhinorrhea, Sore throat Cardiovascular: Denies: Chest pain, Palpitations Respiratory: Denies: Dyspnea, Cough, Dyspnea on exertion Gastrointestinal: Reports: Nausea, Vomiting. Denies: Abdominal pain, Diarrhea - due to the pain , Melena, Hematochezia Genitourinary: Denies: Dysuria, Hematuria, Frequency Musculoskeletal: Reports: Back pain - low, Extremity Pain. Denies: Neck pain, Swelling Skin: Reports: Abrasions. Denies: Rash, Wounds Neurological: Reports: Weakness - chronically intermittent leg weakness; currently resolved. Denies: Headache, Numbness Physical Exam Vital Signs/Narrative: Vital Signs Temp Pulse Resp BP Pulse Ox 09/20/20 15:56 97.1 F L 104 H 18 100/75 100 Inital Vital Signs reviewed: Yes General: Well nourished, Well developed, - - NAD Head: Normocephalic, Atraumatic Eyes: Perrl, EOMI ENT: TM's clear, No hemotympanum or drainage, No trauma. Negative for: Hemotympanum, Otorrhea Neck: Nontender, Full ROM. Negative for: Spinal Tenderness Cardiovascular: Regular rate, Regular rhythm, No murmurs Respiratory: No distress, CTA bilaterally, Chest nontender Abdomen: Soft, Nontender, Nondistended, Normal bowel sounds Back: Spinal Tenderness - lower lumbar. nml inspection, no step offs., Paraspinal Tenderness - right lumbosacral Skin: Normal color, No rash, Trauma - superficial abrasions right dorsal forearm Neurological: Alert, Oriented x3, Cranial nerves II-XII grossly intact, Normal Strength, Normal Sensation Psychological: - - anxious Diagnostic/Tx/Re-eval Clinical Impression(s) from Imaging Studies Knee X-Ray 09/20/20 16:08 IMPRESSION: Normal x-ray examination of the knee. Electronically Signed: Stone Jimenez MD at 17:02 EST , Service support , Lumbar Spine X-Ray 09/20/20 16:08 IMPRESSION: Minimal degenerative changes Electronically Signed: Stone Jimenez MD at 17:01 EST , Service support , Wrist X-Ray 09/20/20 16:09 IMPRESSION: Normal x-ray examination of the wrist. Electronically Signed: Stone Jimenez MD at 17:00 EST , Service support , Hip/Pelvis X-Ray 09/20/20 16:20 IMPRESSION: Normal x-ray examination of the pelvis and hip. Electronically Signed: Stone Jimenez MD at 17:15 EST , Service support , - Medical Decision Making X-rays are all negative. Patient is able to bear weight although with pain. When I internally externally rotate her right hip, the majority of her pain is in the area of the external rotators and her pelvic brim, not the groin/joint. Therefore my suspicion for an occult nondisplaced hip fracture is low. Her pain was treated and she felt and appeared much better. On reevaluation, she is sitting reclined in the bed with her legs crossed in extension, crossed at the ankles. I am comfortable with her being discharged home as is she, she is asking for something for pain just for tomorrow. Given a prescription for tramadol. ED Disposition - Plan for ED Patient: Disposition: Home or Assisted Living Diagnosis: Fall down steps, Contusion of right hip, Right knee sprain, Right wrist sprain Instructions: ED Hip Contusion Prescriptions: traMADol [Ultram] 50 mg PO Q4H PRN PRN 2 Days #10 tab PRN Reason: Pain Prescription Printed Referrals: Iva Gamble SECURITY DELIVERY SPECIALIST, SECURITY DELIVERY SPECIALIST-C [Primary Care Provider] - 3-5 Days if not improving What to do if you have Problems For any increased pain, shortness of breath, bleeding, nausea or vomiting, chest pain, or any unexpected problems, contact your Primary Care Provider. Call [facility] ([phone]) or report to the closest Emergency Room. Call 911 if necessary. 09/21/20 0042 <Electronically signed by Elle Enrique MD> Date Elle Enrique MD Cosigner Signature (If Indicated): Date CC: ERIK Gamble Start: 09-20-2020 End: 09-20-2020 Wrist min 3 Views Comments: See Note; NOTES: [facility] Imaging Services [address] [place] [address] Wrist min 3 Views MR#: [id number] Acct: [id number] Name: RAQUEL ROBLEDO Rep #: [id number] : 1975 F 45 From: Stone briggs MD PCP: ERIK Covington Status: REG ER Study: Wrist min 3 Views Date of Exam: 09/20/20 Exam# [id number] Ordering Dr: Elle Enrique MD STUDY: X-RAY - RIGHT WRIST REASON FOR EXAM: Female, 45 years old. fall down stairs, pain TECHNIQUE: 3 view(s) of the wrist were obtained. COMPARISON: None. FINDINGS: Normal visualized distal radius and ulna. Normal radiocarpal articulation. Normal distal radioulnar articulation. Normal carpal bones. Normal carpal articulations. Normal carpometacarpal articulation of the thumb. Normal second through fifth carpometacarpal articulations. Normal visualized metacarpal bones. The soft tissue structures are unremarkable. There is no demonstrated acute fracture. RAD/Wrist min 3 Views IMPRESSION: Normal x-ray examination of the wrist. Electronically Signed: Stone Jimenez MD at 17:00 EST , Service support , CC: ERIK Gamble; Dr. Elle Enrique MD Shift Stacker: Signed Iva Gamble Start: 09-20-2020 End: 09-20-2020 Knee 4 or More Views Comments: See Note; NOTES: [facility] Imaging Services [address] [place] [address] Knee 4 or More Views MR#: [id number] Acct: [id number] Name: RAQUEL ROBLEDO Rep #: [id number] : 1975 F 45 From: Stone briggs MD PCP: ERIK Covington Status: REG ER Study: Knee 4 or More Views Date of Exam: 09/20/20 Exam# [id number] Ordering Dr: Elle Enrique MD STUDY: X-RAY - RIGHT KNEE REASON FOR EXAM: Female, 45 years old. fall down stairs, pain TECHNIQUE: 3 view(s) of the knee. COMPARISON: None. FINDINGS: Normal visualized distal femur. Normal visualized proximal tibia and fibula. Normal proximal tibiofibular articulation. There is no demonstrated fracture. Normal medial femorotibial compartment. Normal lateral femorotibial compartment. Normal patellofemoral articulation. There is no demonstrated joint effusion. The soft tissue structures are unremarkable. RAD/Knee 4 or More Views IMPRESSION: Normal x-ray examination of the knee. Electronically Signed: Stone Jimenez MD at 17:02 EST , Service support , CC: ERIK Gamble; Dr. Elle Enrique MD Shift Stacker: Signed Iva Gamble Start: 09-20-2020 End: 09-20-2020 Lumbar Spine 2 or 3 Views Comments: See Note; NOTES: [facility] Imaging Services [address] [place] [address] Lumbar Spine 2 or 3 Views MR#: [id number] Acct: [id number] Name: RAQUEL ROBLEDO Rep #: [id number] : 1975 F 45 From: Stone briggs MD PCP: Iva Gamble NP-C Status: REG ER Study: Lumbar Spine 2 or 3 Views Date of Exam: Exam# [id number] Ordering Dr: Elle Enrique MD STUDY: X-RAY - LUMBAR SPINE REASON FOR EXAM: Female, 45 years old. fall down stairs, pain TECHNIQUE: 3 view(s) of the lumbar spine were obtained. COMPARISON: None FINDINGS: Normal lumbar lordosis. There is no substantial scoliosis. There is a normal alignment of the vertebrae. Normal vertebral bodies. Minimal endplate spondylosis seen at several levels. Normal disc space heights. There is no demonstrated fracture or compression deformity. Right upper quadrant surgical clips are present. The soft tissue structures are unremarkable. RAD/Lumbar Spine 2 or 3 Views IMPRESSION: Minimal degenerative changes Electronically Signed: Stone Jimenez MD at 17:01 EST , Service support , CC: SECURITY DELIVERY SPECIALIST-C Iva Gamble; Dr. Elle Enrique MD Shift Stacker: Signed Iva Gamble Start: 01-03-2020 Drug screen class list a Lisbet Mohr Work Phone: Start: 01-02-2020 Mri brain brain stem w/o w/contrast material Monae Whalen Work Phone: Start: 01-02-2020 Mri spinal canal cervical w/o & w/contr matrl Monae Whalen Work Phone: Start: 01-02-2020 EEG REPORT Kimberley Mason Work Phone: Start: 01-02-2020 EEG Monae KCristal Whalen Work Phone: Start: 01-02-2020 Speech and language therapy regime Owen Le Work Phone: Start: 01-02-2020 Assay of magnesium Lisbet Mohr Work Phone: Start: 01-02-2020 BASIC METABOLIC PANEL W/ REFLEX TO MG FOR LOW K Lisbet Mohr Work Phone: Start: 01-02-2020 Blood count complete automated Lisbet Mohr Work Phone: Start: 01-01-2020 Ecg routine ecg w/least 12 lds w/i&r Samuel Mcdermott Work Phone: Start: 01-01-2020 Radiologic exam chest single view Samuel Mcdermott Work Phone: Start: 01-01-2020 Assay of troponin quantitative Samuel Mcdermott Work Phone: Start: 01-01-2020 Blood count complete auto&auto difrntl wbc Samuel Mcdermott Work Phone: Start: 01-01-2020 Prothrombin time Samuel Mcdermott Work Phone: Start: 01-01-2020 Thromboplastin time partial plasma/whole blood Samuel Mcdermott Work Phone: Start: 01-01-2020 Ct head/brain w/o contrast material Samuel Mcdermott Work Phone: Start: 01-01-2020 INITIATE OXYGEN THERAPY PROTOCOL Samuel Mcdermott Work Phone: Start: 12-27-2019 End: 12-27-2019 Brain/Head without Contrast Comments: See Note; NOTES: [facility] Imaging Services [address] [place] [address] Brain/Head without Contrast MR#: [id number] Acct: [id number] Name: RAQUEL ROBLEDO Rep #: [id number] : 1975 F 44 From: Theron Rust MD PCP: ERIK Covington Status: REG ER Study: Brain/Head without Contrast Date of Exam: 12/27/19 Exam# [id number] Ordering Dr: Josefa Romero DO ADDENDUM by Theron Rust MD on 12/27/19 at 2047 STUDY: CT BRAIN WITHOUT CONTRAST REASON FOR EXAM: Female, 44 years old. Stroke RADIATION DOSAGE (If Supplied By Facility): CTDIvol = ( 44.99 ) mGy, DLP = ( 779.24 ) mGycm TECHNIQUE: Transaxial CT imaging of the brain was performed without administration of intravenous contrast material. Individualized dose optimization techniques were used for this CT. COMPARISON: No relevant priors. FINDINGS: Brain parenchyma is without focal lesions, mass effect, acute intracranial hemorrhage, extra parenchymal fluid collections, hydrocephalus or herniation. The skull is intact. 12/27/192046 Date cc: ERIK Gamble; Josefa Romero DO * Signed ADDENDUM by Theron Rust MD on 12/27/[address]/Brain/Head without Contrast IMPRESSION: 1. Normal CT brain. N.B. : The above information has been verbally conveyed by Theron Rust to Josefa Romero MD, on 12/27/2019 20:54:38 (ET). Electronically Signed: Theron Rust, at 20:47 EDT Tel , Service support , 12/27/192100 Date cc: ERIK Gamble; Josefa Romero DO * Signed We are attempting to reach an attending provider to discuss findings. An addendum with communication details will be sent when the communication is complete. STUDY: CT BRAIN WITHOUT CONTRAST REASON FOR EXAM: Female, 44 years old. Stroke RADIATION DOSAGE (If Supplied By Facility): CTDIvol = ( 44.99 ) mGy, DLP = ( 779.24 ) mGycm TECHNIQUE: Transaxial CT imaging of the brain was performed without administration of intravenous contrast material. Individualized dose optimization techniques were used for this CT. COMPARISON: No relevant priors. FINDINGS: Brain parenchyma is without focal lesions, mass effect, acute intracranial hemorrhage, extra parenchymal fluid collections, hydrocephalus or herniation. The skull is intact. CT/Brain/Head without Contrast IMPRESSION: 1. Normal CT brain. Electronically Signed: Theron Rust, at 20:47 EDT Tel , Service support , CC: ERIK Gamble; Josefa Romero DO Shift Stacker: Signed Iva Gamble Start: 12-27-2019 End: 12-27-2019 Chest 1 View Comments: See Note; NOTES: [facility] Imaging Services [address] [place] [address] Chest 1 View MR#: [id number] Acct: [id number] Name: FERCHORAQUEL YOVANI Rep #: [id number] : 1975 F 44 From: Vin Sloan MD PCP: ERIK Covington Status: REG ER Study: Chest 1 View Date of Exam: 12/27/19 Exam# [id number] Ordering Dr: Josefa Romero DO STUDY: X-RAY CHEST REASON FOR EXAM: Female, 44 years old. Cough TECHNIQUE: Frontal view of the chest COMPARISON: 09/07/2019 FINDINGS: The lungs are clear. There are no pleural effusions. There is no pneumothorax. The heart is normal in size. The visualized osseous structures are within normal limits. RAD/Chest 1 View IMPRESSION: No acute thoracic pathology. Electronically Signed: Vin Sloan, at 21:35 EDT Tel , Service support , CC: ERIK Gamble; Josefa Romero DO Shift Stacker: Signed Iva Floridalmazac Start: 12-27-2019 End: 12-27-2019 CTA Head AND Neck W/ Contrast Comments: See Note; NOTES: [facility] Imaging Services [address] [place] [address] CTA Head AND Neck W/ Contrast MR#: [id number] Acct: [id number] Name: RAQUEL ROBLEDO Rep #: [id number] : 1975 F 44 From: Theron Rust MD PCP: ERIK Covington Status: REG ER Study: CTA Head AND Neck W/ Contrast Date of Exam: 12/27/19 Exam# [id number] Ordering Dr: Josefa Romero DO ADDENDUM by Theron Rust MD on 12/27/19 at 2054 STUDY: CTA OF THE BRAIN REASON FOR EXAM: Female, 44 years old. STROKE, NEURO DEFICIT, ACUTE STROKE SUSPECTED, SLURRED SPEECH TODAY RADIATION DOSAGE (If Supplied By Facility): CTDIvol = ( 22.63 ) mGy, DLP = ( 625.85 ) mGycm TECHNIQUE: CT angiography was performed with a multi-detector CT scanner. Data acquisition was obtained from the skull base through the vertex following intravenous administration of IV 100mL Isovue-370. MIP images were reconstructed from the axial data set. Post-processing of the angiographic images was performed, with multiplanar reformation and 3D reconstruction. Individualized dose optimization techniques were used for this CT. COMPARISON: None. FINDINGS: Normal bilateral petrous carotid arteries. Normal right cavernous carotid artery with a normal supraclinoid bifurcation. Normal left cavernous carotid artery with a normal supraclinoid bifurcation. Normal right A1 segments of the anterior cerebral artery. Normal left A1 segments of the anterior cerebral artery. Normal intact anterior communicating artery (ACOM). Normal bilateral A2 segments of the anterior cerebral arteries. Normal right M1 and M2 segments of the middle cerebral arteries, with a normal M1 bifurcation. Normal left M1 and M2 segments of the middle cerebral arteries, with a normal M1 bifurcation. Posterior communicating arteries are not well seen. Normal bilateral vertebral arteries. Normal basilar artery with a normal basilar bifurcation. The visualized bilateral superior cerebellar (SCA) arteries are normal. Normal bilateral P1, P2 and visualized P3 segments of the posterior cerebral arteries. There is no demonstrated aneurysm of the [place]. There is no demonstrated abnormality of the visualized brain. IMPRESSION: Normal [place] without a demonstrated aneurysm or hemodynamically significant stenosis. N.B. : The above information has been verbally conveyed by Theron Rust to Josefaceasar Romero on 12/27/2019 20:54:30 (ET). Electronically Signed: Theron Rust, at 20:54 EDT Tel , Service support , STUDY: CTA NECK WITH CONTRAST REASON FOR EXAM: Female, 44 years old. STROKE, NEURO DEFICIT, ACUTE STROKE SUSPECTED, SLURRED SPEECH TODAY RADIATION DOSAGE (If Supplied By Facility): CTDIvol = ( ) mGy, DLP = ( ) mGycm TECHNIQUE: CT angiography with multi-detector data acquisition was performed from the aortic arch to the skull base following intravenous administration of . MIP images were reconstructed from the axial data set. Post-processing of the angiographic images was performed, with multiplanar reformation and 3D reconstruction. Individualized dose optimization techniques were used for this CT. COMPARISON: None. FINDINGS: AORTIC ARCH: Normal visualized aortic arch. Normal origins of the brachiocephalic, left common carotid, and left subclavian arteries. RIGHT CAROTID ARTERIES: Normal right common carotid artery (CCA). Normal right common carotid bulb. Normal origin of the right internal carotid (ICA) artery without a hemodynamically significant stenosis. Normal visualized cervical portion of the right internal carotid artery. Normal origin of the right external carotid artery (ECA). LEFT CAROTID ARTERIES: Normal left common carotid artery (CCA). Normal left common carotid bulb. Normal origin of the left internal carotid (ICA) artery without a hemodynamically significant stenosis. Normal visualized cervical portion of the left internal carotid artery. Normal origin of the left external carotid artery (ECA). VERTEBRAL ARTERIES: Normal bilateral vertebral arteries. 12/27/192053 Date cc: ERIK Gamble; Josefa Romero DO * Signed ADDENDUM by Theron Rust MD on 12/27/[address]/CTA Head AND Neck W/ Contrast IMPRESSION: Normal bilateral cervical carotid and vertebral arteries. N.B. : The above information has been verbally conveyed by Theron Rust to Josefa Romero on 12/27/2019 20:54:30 (ET). Electronically Signed: Theron Rust, at 20:54 EDT Tel , Service support , 12/27/192100 Date cc: ERIK Gamble; Josefa Romero DO * Signed STUDY: CTA OF THE BRAIN REASON FOR EXAM: Female, 44 years old. STROKE, NEURO DEFICIT, ACUTE STROKE SUSPECTED, SLURRED SPEECH TODAY RADIATION DOSAGE (If Supplied By Facility): CTDIvol = ( 22.63 ) mGy, DLP = ( 625.85 ) mGycm TECHNIQUE: CT angiography was performed with a multi-detector CT scanner. Data acquisition was obtained from the skull base through the vertex following intravenous administration of IV 100mL Isovue-370. MIP images were reconstructed from the axial data set. Post-processing of the angiographic images was performed, with multiplanar reformation and 3D reconstruction. Individualized dose optimization techniques were used for this CT. COMPARISON: None. FINDINGS: Normal bilateral petrous carotid arteries. Normal right cavernous carotid artery with a normal supraclinoid bifurcation. Normal left cavernous carotid artery with a normal supraclinoid bifurcation. Normal right A1 segments of the anterior cerebral artery. Normal left A1 segments of the anterior cerebral artery. Normal intact anterior communicating artery (ACOM). Normal bilateral A2 segments of the anterior cerebral arteries. Normal right M1 and M2 segments of the middle cerebral arteries, with a normal M1 bifurcation. Normal left M1 and M2 segments of the middle cerebral arteries, with a normal M1 bifurcation. Posterior communicating arteries are not well seen. Normal bilateral vertebral arteries. Normal basilar artery with a normal basilar bifurcation. The visualized bilateral superior cerebellar (SCA) arteries are normal. Normal bilateral P1, P2 and visualized P3 segments of the posterior cerebral arteries. There is no demonstrated aneurysm of the [place]. There is no demonstrated abnormality of the visualized brain. IMPRESSION: Normal [place] without a demonstrated aneurysm or hemodynamically significant stenosis. N.B. : The above information has been verbally conveyed by Theron Rust to Josefa Romero on 12/27/2019 20:54:30 (ET). Electronically Signed: Threon Rust, at 20:54 EDT Tel , Service support , STUDY: CTA NECK WITH CONTRAST REASON FOR EXAM: Female, 44 years old. STROKE, NEURO DEFICIT, ACUTE STROKE SUSPECTED, SLURRED SPEECH TODAY RADIATION DOSAGE (If Supplied By Facility): CTDIvol = ( ) mGy, DLP = ( ) mGycm TECHNIQUE: CT angiography with multi-detector data acquisition was performed from the aortic arch to the skull base following intravenous administration of . MIP images were reconstructed from the axial data set. Post-processing of the angiographic images was performed, with multiplanar reformation and 3D reconstruction. Individualized dose optimization techniques were used for this CT. COMPARISON: None. FINDINGS: AORTIC ARCH: Normal visualized aortic arch. Normal origins of the brachiocephalic, left common carotid, and left subclavian arteries. RIGHT CAROTID ARTERIES: Normal right common carotid artery (CCA). Normal right common carotid bulb. Normal origin of the right internal carotid (ICA) artery without a hemodynamically significant stenosis. Normal visualized cervical portion of the right internal carotid artery. Normal origin of the right external carotid artery (ECA). LEFT CAROTID ARTERIES: Normal left common carotid artery (CCA). Normal left common carotid bulb. Normal origin of the left internal carotid (ICA) artery without a hemodynamically significant stenosis. Normal visualized cervical portion of the left internal carotid artery. Normal origin of the left external carotid artery (ECA). VERTEBRAL ARTERIES: Normal bilateral vertebral arteries. CT/CTA Head AND Neck W/ Contrast IMPRESSION: Normal bilateral cervical carotid and vertebral arteries. N.B. : The above information has been verbally conveyed by Theron Rust to Josefa Romero on 12/27/2019 20:54:30 (ET). Electronically Signed: Theron Rust, at 20:54 EDT Tel , Service support , CC: ERIK Gamble; Josefa Romero DO Shift Stacker: Signed Iva Gamble Start: 09-07-2019 End: 09-07-2019 Chest PA and Lateral Comments: See Note; NOTES: [facility] Imaging Services [address] [place] [address] Chest PA and Lateral MR#: [id number] Acct: [id number] Name: RAQUEL ROBLEDO Rep #: [id number] : 1975 F 44 From: Shaheen Braswell MD PCP: ERIK Covington Status: REG CLI Study: Chest PA and Lateral Date of Exam: 09/07/19 Exam# [id number] Ordering Dr: Iva Gamble SECURITY DELIVERY SPECIALISTNina STUDY: X-RAY CHEST REASON FOR EXAM: Female, 44 years old. Cough TECHNIQUE: PA and lateral views of the chest. COMPARISON: None. FINDINGS: The lungs are clear and expanded. There is no demonstrated pleural abnormality. Normal size heart. Normal mediastinum and ludmila. Normal visualized pulmonary arteries. Normal visualized aortic arch and descending thoracic aorta. Normal visualized thoracic spine. Normal visualized ribs, clavicles, and shoulders. There is no demonstrated abnormality of the visualized soft tissue structures of the upper abdomen. RAD/Chest PA and Lateral IMPRESSION: Normal x-ray examination of the chest. Electronically Signed: Shaheen Braswell MD at 22:47 EST , Service support , CC: ERIK Gamble Shift Stacker: Signed Iva Gamble Work Phone: Start: 03-05-2016 Colonoscopy Mri (I-Stat/1.5t) Work Phone: Start: 01-07-2016 End: 01-07-2016 Emergency Department Summary Comments: See Note; NOTES: [facility] Medical Records Department [address] [place] [address] Emergency Department Summary MR#: [id number] Acct: [id number] Name: RAQUEL ROBLEDO Rep #: [id number] : 1975 40 From: Aileen Feldman MD PCP: Iva Gamble Status: DEP ER DATE OF SERVICE: 01/06/2016 CHIEF COMPLAINT: Abdominal pain. HISTORY OF PRESENT ILLNESS: The patient is a 40-year-old female with complaints of 3 months of abdominal pain, continuous, cramping associated with nausea, vomiting and diarrhea. She states she is having 2 episodes of vomiting per day and diarrhea frequently. She states she was diagnosed with Campylobacter 2 months ago. She has been treated with 2 courses of erythromycin and Cipro. She has finished her antibiotics as of 1 week ago. She continues to have diarrhea. She was referred to GI, her appointment is not until February. She complains of abdominal cramping. No fever or other complaints. PHYSICAL EXAMINATION: VITAL SIGNS: Stable. The patient is afebrile. GENERAL: Alert, in no acute distress. HEENT: Moist mucous membranes. HEART: Regular rate and rhythm. LUNGS: Clear and equal. ABDOMEN: Soft. Mild diffuse tenderness. No guarding or rebound. BACK: Nontender. Remainder of exam is unremarkable. EMERGENCY DEPARTMENT COURSE: CBC, chemistries are unremarkable. HCG is negative. The patient was given IV fluids, morphine and Phenergan with improvement of her symptoms. CT of abdomen and pelvis shows no acute process. The patient is feeling improved and will follow up with her primary care physician and GI as scheduled. She will return to the ED if she has any worsening symptoms. Repeat abdominal exam is soft, minimal tenderness. No guarding or rebound. the patient is comfortable with discharge home. She will return to the ED if she worsens. CLINICAL IMPRESSION: Abdominal pain. DISPOSITION: The patient will be discharged. Aileen Feldman MD T: NTS JOB: [id number] 01/07/16 0022 <Electronically signed by Aileen Feldman MD> Date Aileen Feldman MD Cosigner Signature (If Indicated): Date CC: Iva Gamble Date Dictated: 01/06/161846 Date Transcribed: 01/06/161846 Shift Stacker: Signed Iva Gamble Start: 01-06-2016 End: 01-06-2016 Discharge Instruction Comments: See Note; NOTES: [facility] Medical Records Department [address] [place] [address] Discharge Instruction 01/06/161842 MR#: [id number] Acct: [id number] Name: RAQUEL ROBLEDO Rep #: [id number] : 1975 40 From: Aileen Feldman MD PCP: Iva Gamble Status: REG ER ED Disposition - Plan for ED Patient: Disposition: Home or Assisted Living Chief Complaint: Abd Pain Instructions: ED Abdominal Pain, Unknown Cause, (Female) Prescriptions: Hydrocodone Bitart/Apap 5-325 [Heidrick 5/325] 1 tablet PO Q4H PRN PRN #12 tablet PRN Reason: Pain What to do if you have Problems For any increased pain, shortness of breath, bleeding, nausea or vomiting, chest pain, or any unexpected problems, contact your doctor. Call [facility] ([phone]) or report to the closest Emergency Room. Call 911 if necessary. 01/06/161843 <Electronically signed by Aileen Feldman MD> Date Aileen Feldman MD Cosigner Signature (If Indicated): Date CC: Iva Gamble Start: 01-06-2016 End: 01-06-2016 Abdomen/Pelvis without Cont Comments: See Note; NOTES: [facility] Imaging Services [address] [place] [address] Verdana 4d Abdomen/Pelvis without Cont MR#: [id number] Acct: [id number] Name: RAQUEL ROBLEDO Rep #: [id number] : 1975 F 40 From: Christopher Fofana MD PCP: Iva Gamble Status: REG ER Study: Abdomen/Pelvis without Cont Date of Exam: 01/06/16 Exam# [id number] Ordering Dr: Aileen Feldman MD STUDY: CT ABDOMEN AND PELVIS WITHOUT CONTRAST REASON FOR EXAM: Female, 40 years old. Abdominal pain. Nausea and vomiting. RADIATION DOSAGE (If Supplied By Facility): CTDIvol = ( 6.22 ) mGy, DLP = ( 294.82 ) mGycm TECHNIQUE: Transaxial images were obtained from the dome of the diaphragm to the symphysis pubis without oral contrast, and without intravenous contrast. Sagittal and coronal images were reconstructed. COMPARISON: 06/16/12. FINDINGS: The visualized lung bases are unremarkable. The visualized portions of the heart are within normal limits. Normal liver. There are surgical clips in the gallbladder fossa consistent with a prior cholecystectomy. Normal spleen. Normal pancreas. Normal bilateral adrenal glands. Normal right kidney. Left kidney has a 2 mm nonobstructing stone of the upper pole. Otherwise negative left kidney. Normal visualized stomach. Normal small intestine. Normal colon. There is non-visualization of the appendix consistent with appendectomy. Normal abdominal aorta. Normal inferior vena cava. Normal retroperitoneum. Normal urinary bladder. There is absence of the uterus consistent with a prior hysterectomy. Normal abdominal wall. Normal osseous structures. IMPRESSION: No definite acute abnormality. Small nonobstructing stone of the left kidney. Electronically Signed: Christopher Fofana MD at 18:16 EDT , Service support [phone], CC: Iva Gamble; Aileen Feldman MD Shift Stacker: Signed Iva Gamble Start: 10-19-2015 End: 10-19-2015 Emergency Department Summary Comments: See Note; NOTES: [facility] Medical Records Department [address] [place] [address] Emergency Department Summary MR#: [id number] Acct: [id number] Name: RAQUEL ROBLEDO Rep #: [id number] : 1975 40 From: Vicky Bhardwaj MD PCP: Iva Gamble Status: DEP ER DATE OF SERVICE: 10/19/2015 CHIEF COMPLAINT: Abdominal pain. LEVY HISTORY: The patient is a 40-year-old female who states that she has been tired and off balance all day today after not sleeping. She fell tonight, stretching backwards. Since that time, she has had increased abdominal pain. She has had some nausea, vomiting and diarrhea as well. She has had a low grade fever, she thinks at home, but did not measure it. She has a history of asthma, COPD, uterine and cervical cancer, status post hysterectomy. She has had a cholecystectomy in the past. She has had bipolar disorder and seizures. She has had surgery for pelvic adhesions previously as well. PHYSICAL EXAMINATION: VITAL SIGNS: Blood pressure is 100/59, temperature 99.2, heart rate 71, respirations 14, pulse oximetry 98% on room air. GENERAL: The patient is lying in bed in no acute distress. She does appear uncomfortable. HEART: Regular. LUNGS: Clear. ABDOMEN: Soft with moderate diffuse tenderness. No guarding or rebound. She is hypoactive, but present bowel sounds. HOSPITAL COURSE: CBC and chemistry studies are unremarkable. Urine is negative. The patient was given morphine, Zofran, and fluids here. On repeat evaluation, she is sitting upright in bed, talking on the phone, she feels improved. She has not had any narcotics from previous [facility] prescriptions. At this time, I think she likely has viral gastroenteritis as there is a lot of this going around. When she had her fall she may have stretched some of the scar tissue that she has from adhesions causing worsening of pain. She will be given some Percocet and Zofran for home. DISPOSITION: Discharge. IMPRESSION: 1. Viral gastroenteritis. 2. Abdominal pain. Vicky Bhardwaj MD T: NTS JOB: [id number] 10/19/15 2338 <Electronically signed by Vicky Bhardwaj MD> Date Vicky Bhardwaj MD Cosigner Signature (If Indicated): Date CC: Iva Gamble Date Dictated: 10/19/152215 Date Transcribed: 10/19/152215 Shift Stacker: Signed Iva Gamble Start: 10-19-2015 End: 10-19-2015 Discharge Instruction Comments: See Note; NOTES: [facility] Medical Records Department [address] [place] [address] Discharge Instruction 10/19/152213 MR#: [id number] Acct: [id number] Name: RAQUEL ROBLEDO Rep #: [id number] : 1975 40 From: Vicky Bhardwaj MD PCP: Iva Gamble Status: REG ER ED Disposition - Plan for ED Patient: Disposition: Home or Assisted Living Chief Complaint: Abd Pain Instructions: ED INTESTINAL CRAMPING Prescriptions: Oxycodone HCl/Acetaminophen [Percocet 5/325] 1 - 2 tablet PO Q4H PRN PRN #12 tablet PRN Reason: Pain Ondansetron [Zofran Odt] 4 mg PO Q8H PRN PRN #10 tablet PRN Reason: Nausea Referrals: Iva Gamble [Primary Care Provider] - 1 Week if not improving What to do if you have Problems For any increased pain, shortness of breath, bleeding, nausea or vomiting, chest pain, or any unexpected problems, contact your doctor. Call [facility] ([phone]) or report to the closest Emergency Room. Call 911 if necessary. 10/19/152214 <Electronically signed by Vicky Bhardwaj MD> Date Vicky Bhardwaj MD Cosigner Signature (If Indicated): Date CC: Iva Gamble Start: 08-24-2015 End: 08-24-2015 Emergency Department Summary Comments: See Note; NOTES: [facility] Medical Records Department [address] [place] [address] Emergency Department Summary MR#: [id number] Acct: [id number] Name: RAQUEL ROBLEDO Rep #: [id number] : 1975 40 From: Torey Albright MD PCP: Iva Gamble Status: DEP ER DATE OF SERVICE: 08/23/2015 METHOD OF ARRIVAL: EMS. CHIEF COMPLAINT: Agitation. HISTORY OF PRESENT ILLNESS: A 40-year-old female [facility] reports that she is trying to quit smoking and was going cold turkey. States that she was arguing with her boyfriend and was upset. She did not want to take the Ativan that she is supposed to take b.i.d. ____ into it, but prior to beginning to work she became even more upset and called 911, told them that she was going to kill herself. Upon arrival to the Emergency Department, the patient reports that she is completely fine now. She is not having any suicidal or homicidal ideation that she was just frustrated. PHYSICAL EXAMINATION: GENERAL: Reveals alert woman in no acute distress. VITAL SIGNS: Stable. MENTAL STATUS: Significant physical exam findings include the mental status exam, the patient appeared her stated age. She has good posture and grooming. She makes good eye contact. She has got normal rate, volume and latency of speech, content of thought. She denies any homicidal or suicidal ideation, no auditory or visual hallucinations. Flow of thought is good. Insight and judgment is good. Remainder of the physical exam is unremarkable. Please see T-sheet for details. EMERGENCY DEPARTMENT COURSE: The patient discussed with the [facility]. At this time, she is not suicidal. We have sent up close follow up for her at 11:00 tomorrow. She is instructed to return to the Emergency Department for any thought of harming herself. DISPOSITION: Home, stable condition. IMPRESSION: Depression. MD Adam Potts C: [facility] T: [facility] JOB: [id number] 08/24/15 0028 <Electronically signed by Torey Albright MD> Date Torey Albright MD Cosigner Signature (If Indicated): Date CC: Iva Gamble Date Dictated: 08/23/152334 Date Transcribed: 08/23/152334 Shift Stacker: Signed Iva Gamble Start: 08-24-2015 End: 08-24-2015 Discharge Instruction Comments: See Note; NOTES: [facility] Medical Records Department [address] [place] [address] Discharge Instruction 08/23/151919 MR#: [id number] Acct: [id number] Name: RAQUEL ROBLEDO Rep #: [id number] : 1975 40 From: Torey Albright MD PCP: Iva Gamble Status: DEP ER ED Disposition - Plan for ED Patient: Chief Complaint: Suicidal Instructions: ED Depression Referrals: [facility] [GROUP OF PHYSICIANS] - 08/24/15 11:00 am What to do if you have Problems For any increased pain, shortness of breath, bleeding, nausea or vomiting, chest pain, or any unexpected problems, contact your doctor. Call [facility] ([phone]) or report to the closest Emergency Room. Call 911 if necessary. 08/24/15 0014 <Electronically signed by Torey Albright MD> Date Torey Albright MD Cosigner Signature (If Indicated): Date CC: Iva Gamble Start: 08-22-2015 End: 08-22-2015 Lower Ext Joint Only (Routine) Comments: See Note; NOTES: [facility] Imaging Services [address] [place] [address] Verdana 4d Lower Ext Joint Only (Routine) MR#: [id number] Acct: [id number] Name: RAQUEL ROBLEDO Rep #: [id number] : 1975 F 40 From: Elle Caldera MD PCP: Iva Gamble Status: REG CLI Study: Lower Ext Joint Only (Routine) Date of Exam: 08/22/15 Exam# [id number] Ordering Dr: Iva Gamble STUDY: MRI RIGHT KNEE REASON FOR EXAM: Female, 40 years old. Pain. Previous surgery for tumor removal TECHNIQUE: Standardized fat and water weighted pulse sequences were obtained in all 3 orthogonal planes. COMPARISON: X-ray March 14, 2014. FINDINGS: Normal medial meniscus. Normal hyaline cartilage of the medial femorotibial compartment. Normal medial femoral condyle and tibial plateau. Normal medial collateral ligamentous complex (MCL). Normal distal semimembranosus, gracilis and semitendinosus tendons. Normal lateral meniscus. Normal hyaline cartilage of the lateral femorotibial compartment. Normal lateral femoral condyle and tibial plateau. Normal proximal tibiofibular articulation. Normal lateral collateral ( fibular ) ligament. Normal popliteus tendon. Normal biceps femoris tendon. Normal anterior cruciate ligament (ACL). Normal posterior cruciate ligament (PCL). Normal congruent patellofemoral articulation. Normal hyaline cartilage of the patellofemoral compartment. Normal medial and lateral patellar retinaculum. Normal quadriceps tendon. Normal patellar tendon. There is postoperative change with signal drop out in the infrapatellar region on the lateral aspect . There is a small volume joint effusion. The soft tissues are unremarkable. The otherwise visualized osseous structures are unremarkable. IMPRESSION: Postoperative change in the infrapatellar region. No ligamentous or meniscal tear. Joint effusion. Electronically Signed: Elle Caldera MD at 16:33 EST , Service support [phone], CC: Iva Gamble Shift Stacker: Signed Iva Shukla Tye Work Phone: Start: 08-07-2015 End: 08-07-2015 Emergency Department Summary Comments: See Note; NOTES: [facility] Medical Records Department [address] [place] [address] Emergency Department Summary MR#: [id number] Acct: [id number] Name: RAQUEL ROBLEDO Rep #: [id number] : 1975 40 From: Jigna Song MD PCP: Iva Gamble Status: DEP ER DATE OF SERVICE: 06/23/2015 CHIEF COMPLAINT: Seizure. HISTORY OF PRESENT ILLNESS: A 40-year-old female comes in by EMS after reportedly having 2 seizures at home tonight. She reports just sitting watching TV when this happened. She says that the first one she was able to catch it in time and she took a couple of Ativan. A little while later, she had a second seizure she says and she thinks it may have lasted 20 minutes. She can remember some aspects of this event and says that now she has a headache, feels tired and weak and has pain all over. She reports that her last seizure was a couple of months ago and she has been having seizures for a few years now. She saw Dr. Marshall in the past and is on Topamax and tells me that she was moving, so she did not take her Topamax for about a week. She just started retaking it a couple of days ago. PHYSICAL EXAMINATION: GENERAL: She is alert, appropriate, cooperative and pleasant. NEUROLOGIC: She has no cranial nerve deficit or peripheral nerve deficit on neuro exam. VITAL SIGNS: Unremarkable. HEENT: She has no evidence of trauma to her head, face or neck. No tongue biting. ABDOMEN: Soft and benign. LUNGS: Clear. HEART: Rate is regular. CLINICAL COURSE AND DECISION MAKING: Chemistry revealed a potassium of 3.4, which is certainly not terribly remarkable, but she was given a potassium pill and CBC was normal. I reassured the patient at this time it is unclear to me whether or not she has a true epileptic type seizures or potentially pseudoseizures. They are certainly aspects of her history that suggests that she may in fact suffer from pseudoseizures. I instructed her to continue her medications as prescribed and suggested that she follow up with Dr. Marshall. She is comfortable doing that. She has been observed here for an hour and 45 minutes and has been alert and appropriate the whole time. DISPOSITION: Discharge. DIAGNOSES: 1. Reported seizure. 2. Hypokalemia. Jigna Song MD T: [facility] JOB: [id number] 08/07/157 <Electronically signed by Jigna Song MD> Date Jigna Song MD Cosigner Signature (If Indicated): Date CC: Iva Gamble Date Dictated: 06/24/15139 Date Transcribed: 06/24/15139 Shift Stacker: Signed Iva Gamble Start: 06-24-2015 End: 06-24-2015 Discharge Instruction Comments: See Note; NOTES: [facility] Medical Records Department [address] [place] [address] Discharge Instruction 06/24/15134 MR#: [id number] Acct: [id number] Name: RAQUEL ROBLEDO Rep #: [id number] : 1975 40 From: Jigna Song MD PCP: Iva Gamble Status: REG ER ED Disposition - Plan for ED Patient: Chief Complaint: Seizure Instructions: ED Seizure, Recurrent (Adult) Referrals: Iva Gamble [Primary Care Provider] - Kartik Marshall MD [STAFF PHYSICIAN] - 3-5 Days Additional Instructions: take all your medications regularly. What to do if you have Problems For any increased pain, shortness of breath, bleeding, nausea or vomiting, chest pain, or any unexpected problems, contact your doctor. Call [facility] ([phone]) or report to the closest Emergency Room. Call 911 if necessary. 06/24/15135 <Electronically signed by Jigna Song MD> Date Jigna Nievesigner Signature (If Indicated): Date CC: Iva Gamble Start: 08-29-2014 End: 08-30-2014 Cerv Spine 4 or 5 Views Comments: See Note; NOTES: [facility] Imaging Services [address] [address] [place] [address] Radiology Report MR#: [id number] Acct: [id number] Name: RAQUEL ROBLEDO Rep #: [id number] : 1975 F 39 From: Ignacio Lozano PCP: Iva Gamble Status: REG CLI Study: Cerv Spine 4 or 5 Views Date of Exam: 08/29/14 Exam# [id number] Ordering Dr: Kartik Marshall MD STUDY: X-RAY - CERVICAL SPINE REASON FOR EXAM: Female, 39 years old. Neck pain TECHNIQUE: 7 view(s) of the cervical spine were obtained. COMPARISON: None FINDINGS: Normal anterior atlantoaxial articulation. Normal odontoid process. There is straightening of the normal cervical lordosis. Normal vertebral bodies and endplates. Normal disc space heights. Normal visualized intervertebral neuroforamina. The soft tissue structures are unremarkable. IMPRESSION: Normal x-ray examination of the visualized cervical spine. Electronically Signed: Ignacio Lozano MD at 6:40 EST , Service support [phone], RAD/Cerv Spine 4 or 5 Views IMPRESSION: Normal x-ray examination of the visualized cervical spine. Electronically Signed: Ignacio Lozano MD at 6:40 EST , Service support [phone], CC: Iva Gamble; Kartik Marshall Shift Stacker: Signed Iva Gamble Start: 06-05-2014 End: 06-05-2014 Electroencephalogram Comments: See Note; NOTES: [facility] Pulmonary Services/Neurology [address] [place] [address] Electroencephalogram (EEG) MR#: [id number] Acct: [id number] Name: RAQUEL ROBLEDO Rep #: [id number] : 1975 39 From: Kartik Marshall MD Referring Dr: Iva Gamble Status: REG CLI Ordering Dr: Iva Gamble Date: 05/12/14 Location: CT Sex: F C INDICATION: Witnessed seizures. Please evaluate for epileptic activity. FINDINGS: We performed an adult electroencephalographic recording using standard procedure. The patient was recorded for 24 minutes. Photic stimulation was performed. The patient refused to do hyperventilation. She had a normal waking background rhythm of 10 Hz that attenuated with eye opening. The patient had an episode that was described by the automation technologist's notes as jerking and then whole body tremors. This went on for many minutes. There was no abnormal electroencephalographic recording, that is to say the EEG was normal while the patient was doing this. There was some movement artifact and muscle artifact while the patient was doing it, but there was clearly no epileptic activity going on. Photic stimulation was unremarkable. The patient was mostly awake. There was some mild drowsiness here and there, but otherwise awake. IMPRESSION: This is a normal awake and drowsy electroencephalographic recording including the many minutes of the patient tremoring and jerking. 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 06/05/14 1805 <Electronically signed by Kartik Marshall MD> Date Kartik Marshall MD CC: Iva Cedenoedelmira; Kartik Marshall Date Dictated: 05/23/14 1803 Date Transcribed: 05/24/14 0710 Shift Stacker: BINTA Mueller Iva Gamble Start: 05-12-2014 End: 05-13-2014 Brain without Contrast Comments: See Note; NOTES: [facility] Imaging Services [address] [place] [address] MRI Report MR#: [id number] Acct: [id number] Name: RAQUEL ROBLEDO Rep #: [id number] : 1975 F 39 From: Sanjuana Dejesus DO PCP: Iva Gamble Status: REG CLI Study: Brain without Contrast Date of Exam: 05/12/14 Exam# [id number] Ordering Dr: Iva Gamble STUDY: MRI BRAIN WITHOUT CONTRAST REASON FOR EXAM: Female, 39 years old. Vertigo, tremors, headache TECHNIQUE: Standardized multiplanar fat and water weighted pulse sequences were obtained. COMPARISON: Unenhanced CT brain 05/12/2014 and MRI brain 11/08/2012 FINDINGS: Normal size of the ventricles and extra-axial spaces for the patient's age. Normal white matter tracts of the supratentorial brain. There is no evidence for recent intracranial ischemia or other cause of cytotoxic edema on diffusion weighted imaging (DWI). Normal bilateral basal ganglia. Normal thalami. There is no extra-axial fluid accumulation. Normal flow voids within the major intracranial circulation suggesting patency by spin echo criteria. Normal sella turcica, pituitary gland, infundibular stalk, optic chiasm and hypothalamus. Normal tectal plate and pineal gland. Normal midbrain, kinsey and medulla. Normal cerebellum. Normal basal cisterns. There is moderate chronic otomastoiditis of the left temporal bone. Normal bilateral internal auditory canals. No demonstrated orbital abnormality, within the constraints of a routine brain study. There is lobular mucosal thickening in the floor of the maxillary antra bilaterally. Normal calvarium and skull base. Normal visualized soft tissue structures. Normal visualized upper cervical spine. IMPRESSION: Normal unenhanced MRI of the brain. Left otomastoiditis is redemonstrated. Chronic paranasal sinus inflammatory changes involving the bilateral maxillary antra. Electronically Signed: Sanjuana DO Oleg at 0:56 EDT Tel , Service support [phone], CC: Iva Gamble Shift Stacker: Signed Iva Gamble Work Phone: Start: 05-12-2014 End: 05-12-2014 Brain/Head without Contrast Comments: See Note; NOTES: [facility] Imaging Services [address] [place] [address] CAT Scan Report MR#: [id number] Acct: [id number] Name: RAQUEL ROBLEDO Rep #: [id number] : 1975 F 39 From: Shay Rubin MD PCP: Iva Gamble Status: REG CLI Study: Brain/Head without Contrast Date of Exam: 05/12/14 Exam# [id number] Ordering Dr: Iva Gamble STUDY: CT BRAIN WITHOUT CONTRAST REASON FOR EXAM: Female, 39 years old. Right-sided weakness RADIATION DOSAGE (If Supplied By Facility): CTDIvol = ( 65.88 ) mGy, DLP = ( 1106.59 ) mGycm TECHNIQUE: Transaxial CT imaging of the brain was performed without administration of intravenous contrast material. COMPARISON: March 29, 2014 FINDINGS: Normal soft tissue structures. Normal calvarium. Normal size ventricles and extra-axial spaces for the patient's age. Normal white matter tracts of the cerebral hemispheres. Normal basal ganglia and thalami. Normal brainstem. Normal cerebellum. There is no intracranial hemorrhage. There are no findings of an acute ischemic infarction. There is persistent partial opacification of left mastoid air cells suggesting chronic mastoiditis. IMPRESSION: There is no evidence of intracranial hemorrhage or intracranial neoplasm. Electronically Signed: Louisa Rubin MD at 13:38 EDT Tel , Service support [phone], CC: Iva Gamble Shift Stacker: Signed Iva Gamble Work Phone: Start: 04-05-2014 End: 05-12-2014 Ketorolac tromethamine inj Iva Gamble Work Phone: Start: 02-15-2014 End: 02-15-2014 Emergency Department Summary Comments: See Note; NOTES: [facility] Medical Records Department [address] [place] [address] Emergency Department Summary MR#: [id number] Acct: [id number] Name: RAQUEL ROBLEDO Rep #: [id number] : 1975 38 From: Kevon Rivas MD PCP: OUT OF TOWN DOCTOR [facility] DATE OF SERVICE: 02/10/2014 METHOD OF ARRIVAL: By private car. CHIEF COMPLAINT: Right hand injury. PRIMARY CARE PHYSICIAN: Iva Gamble. HISTORY OF PRESENT ILLNESS: A 38-year-old female with history of depression, anxiety, bipolar, back problems, asthma, COPD, who comes in with right hand injury. This occurred today. She states she punch the microwave door to open it. She states it is painful. Denies any prior fracture or injury. She states the pain makes her nauseous, otherwise unremarkable. PHYSICAL EXAMINATION: VITAL SIGNS: Stable. Afebrile. EXTREMITIES: Levy physical exam of right hand, the patient has a little bit of abrasion between her 4th and 5th MCP joint region. I do not appreciate any significant swelling. She is neurovascularly intact. She has some tenderness over the 4th and 5th metacarpals distally. She has no tenderness in the wrist. No tenderness in the hand. No snuffbox tenderness. She has no rotational deformity. Remainder of exam is unremarkable. TESTS: Right hand films obtained, 3-view, I do not see any evidence of fracture. EMERGENCY DEPARTMENT COURSE: The patient was given Zofran. She declined anything further for pain. At this time, she will be placed in a Velcro wrist splint for comfort. Instructed on ice and elevate. CLINICAL IMPRESSION: Right hand contusion. DISPOSITION: Home. Kevon Rivas MD C C: Iva Gamble T: [facility] JOB: [id number] 02/15/142323 <Electronically signed by Kevon Rivas MD> Date Kevon Rivas MD CC: Iva Gamble; OUT OF TOWN DOCTOR Date Dictated: 02/10/142030 Date Transcribed: 02/10/142030 Shift Stacker: Signed Iva Floridalmazac Start: 11-18-2013 End: 11-18-2013 Pulmonary Function Report Comp Comments: See Note; NOTES: [facility] Pulmonary Services/Neurology [address] [place] [address] Pulmonary Function Test (Comp) MR#: [id number] Acct: [id number] Name: RAQUEL ROBLEDO Rep #: [id number] : 1975 38 From: Ramos Castorena MD Referring Dr: Iva Gamble Status: REG CLI Ordering Dr: Iva Gamble Date: 11/10/13 Location: PSN Sex: F C Date: 11/10/13 Tech.: Joselyn Dash Temp: 18 PBar: 738 Height(in.): 62 Weight(lbs.): 107 Diagnosis: Medication: Symbicort 2xd, ProAir p.r.n. : Dyspnea Rest: Y Dyspnea Exercise: Y Cough: Y Productive (cc): 1-2 Persistent: Y Smoker: Y How Long (pk/yrs): 26 Stopped (yrs): 1 Cigarettes: Y Cigars: N SPIROMETRY Ref Pre Pre Post Post Post Tremaine % Ref Tremaine % Ref % Chg FVC (L) 3.41 1.05 31 2.05 60 95 FEV1 (L) 2.69 0.95 36 1.57 59 65 FEV1/FVC (%) 78 91 77 FEF 25% (L/sec) 2.66 2.84 7 FEF 50% (L/sec) 3.74 3.33 89 1.66 45 -50 FEF 75% (L/sec) 1.64 1.84 113 0.65 40 -65 FEF 25-75% (L/sec) 3.19 2.83 89 1.35 42 -52 FIVC (L) 3.41 0.56 16 1.31 38 134 PEF (L/sec) 3.08 3.59 59 3.23 53 -10 MVV (L/min) 110 DIFFUSION Ref Pre Pre Post Post Tremaine % Ref Tremaine % Ref DLCO (ml/min/mmHg) 18.9 17.4 92 DL Adj (ml/mmHg/min) 18.9 17.4 92 VA (L) 4.35 DLCO/VA (ml/mHg/min/L) 4.34 3.99 92 DL/VA Adj (ml/mHg/min/L) 3.99 IVC (L) 0.66 PLETHYSMOGRAPH Ref Pre Pre Post Post Post LUNG SOUNDS (BTPS) Tremaine % Ref Tremaine % Ref % Chg TLC (L) 4.68 4.47 96 VC (L) 3.41 1.39 41 IC (L) 2.[address] (L) 2.81 3.92 140 Vtg (L) 3.29 ERV (L) 1.10 0.71 64 RV (L) 1.46 3.08 210 RV/TLC (%) 31 69 RESISTANCE Ref Pre Pre Post Post Post Tremaine % Ref Tremaine % Ref % Chg Raw Total (cmH20/L/sec) 3.37 Raw Insp (cmH20/L/sec) 3.60 Raw Exp (cmH20/L/sec) 2.46 Raw (cmH20/L/sec) 1.36 2.50 184 GAW (L/sec/cmH20) 0.673 0.400 59 sGAW (L/s/cmH20/L) 0.262 0.122 46 Vtg (Raw) (Liters) 3.29 PHYSICIAN INTERPRETATION: SPIROMETRY: Study does not meet ATS criteria for reproducibility and end of test. COMMENT: FVC 2.05 L, suspect technical error. LUNG VOLUMES: 1. Air trapping. 2. Normal total lung capacity. DIFFUSION Normal gas transfer. 11/18/13 0914 <Electronically signed by Ramos Castorena MD> Date Ramos Castorena MD CC: Iva Gamble; Ramos Castorena MD Date Dictated: 11/10/131920 Date Transcribed: 11/17/131920 Shift Stacker: BINTA Signed Iva Gamble Start: 11-01-2013 End: 11-01-2013 Chest PA and Lateral Comments: See Note; NOTES: [facility] Imaging Services [address] [facility] [place] [address] Radiology Report MR#: [id number] Acct: [id number] Name: RAQUEL ROBLEDO Rep #: [id number] : 1975 F 38 From: Percy Mathews MD PCP: Status: REG CLI Study: Chest PA and Lateral Date of Exam: 11/01/13 Exam# [id number] Ordering Dr: Iva Gamble STUDY: X-RAY CHEST REASON FOR EXAM: Female, 38 years old. Dyspnea and right-sided chest pain. TECHNIQUE: PA and lateral views of the chest. COMPARISON: Comparison is made with prior study dated September 21, 2012. FINDINGS: Hyperinflation. Calcified old granulomatous disease. There is no demonstrated pleural abnormality. Normal size heart. Normal mediastinum and ludmila. Normal visualized pulmonary arteries. Normal visualized aortic arch and descending thoracic aorta. Normal visualized thoracic spine. Normal visualized ribs, clavicles, and shoulders. There is no demonstrated abnormality of the visualized soft tissue structures of the upper abdomen. IMPRESSION: Hyperinflation. Electronically Signed: Percy Mathews M.D. at 13:02 EST , Service support [phone], CC: Iva Gamble Shift Stacker: Signed Iva Gamble Work Phone: Start: 10-19-2003 Hysterectomy JESSICA BRAMBILA MD Dilation and curettage JOHN BRAMBILA MD Gallbladder structur e (body structure) JESSICA BRAMBILA MD H/O: hysterectomy History of par tial hysterectomy( Confirmed ) 1 SHAMEKA FERNANDO MD Plan of Treatment Date Care Activity Detail Author Start: 03-11-2027 Lipid 1996 panel - Serum or Plasma Lipid Screening [facility] Start: 03-12-2025 Diabetes Screening Diabetes Screening [facility] Start: 06-19-2023 Influenza vaccination Influenza Vaccine (#1) [facility] Start: 10-19-2022 Depression Assessment Depression Assessment [facility] Start: 06-19-2022 Influenza vaccination INFLUENZA (Season Ended) [facility] Start: 2022 Cologuard (FIT-DNA) Cologuard (FIT-DNA) [facility] Start: 2022 Colonoscopy Colonoscopy [facility] Start: 2022 Colorectal Cancer Screening Colorectal Cancer Screening [facility] Start: [address] Colonography [facility] Start: 2022 Fecal Occult Blood Fecal Occult Blood [facility] Start: 2022 Sigmoidoscopy Sigmoidoscopy [facility] Start: 02-03-2022 Procedure Education Eprescribed prescriptions (G8553) [facility]; [facility] Work Phone: Start: 09-27-2021 Procedure Education Eprescribed prescriptions (G8553) [facility]; [facility] Work Phone: Start: 09-27-2021 Provider Instructions for Treatment Follow up in 3 days virtual front end developer javascript html css [facility]; [facility] Work Phone: Start: 09-26-2021 Procedure Education Eprescribed prescriptions (G8553) [facility]; [facility] Work Phone: Start: 09-25-2021 Procedure Education Eprescribed prescriptions (G8553) [facility]; [facility] Work Phone: Start: 09-25-2021 Provider Instructions for Treatment Follow up in 2 days virtual front end developer javascript html css to schedule on Thursday pt is coming for covid testing [facility]; [facility] Work Phone: Start: 09-25-2021 Iaadiadoo influenza 2019 Novel Coronavirus (COVID-19), [facility] ([id number]) [facility]; [facility] Work Phone: Start: 09-23-2021 Procedure Education Eprescribed prescriptions (G8553) [facility]; [facility] Work Phone: Start: 09-23-2021 Provider Instructions for Treatment Follow up in 3 months front end developer javascript html css to make follow up [facility]; [facility] Work Phone: Start: 07-22-2021 Procedure Education Eprescribed prescriptions (G8553) [facility]; [facility] Work Phone: Start: 07-22-2021 Provider Instructions for Treatment [facility]; [facility] Work Phone: Start: 07-22-2021 Blood count complete auto&auto difrntl wbc CBC, Platelets & Auto Diff (67303) [facility]; [facility] Work Phone: Start: 07-22-2021 Comprehensive metabolic panel Metabolic Panel, Comprehensive (97726) [facility]; [facility] Work Phone: Start: 07-22-2021 Assay of thyroid stimulating hormone tsh TSH (18423) [facility]; [facility] Work Phone: Start: 06-21-2021 Procedure Education Eprescribed prescriptions (G8553) [facility]; [facility] Work Phone: Start: 06-21-2021 Provider Instructions for Treatment Follow up in 3 months front end developer javascript html css to make arrangements [facility]; [facility] Work Phone: Start: 05-31-2021 Procedure Education Eprescribed prescriptions (G8553) [facility]; [facility] Work Phone: Start: 04-18-2021 Procedure Education Eprescribed prescriptions (G8553) [facility]; [facility] Work Phone: Start: 03-20-2021 Procedure Education Eprescribed prescriptions (G8553) [facility]; [facility] Work Phone: Start: 03-20-2021 Provider Instructions for Treatment [facility]; [facility] Work Phone: Start: 02-17-2021 PAP TESTING PAP TESTING [facility] Start: 02-11-2021 Procedure Education Eprescribed prescriptions (G8553) [facility]; [facility] Work Phone: Start: 02-11-2021 Provider Instructions for Treatment [facility]; [facility] Work Phone: Start: 12-18-2020 Procedure Education Eprescribed prescriptions (G8553) [facility]; [facility] Work Phone: Start: 12-18-2020 Provider Instructions for Treatment Follow up in 3 months [facility]; [facility] Work Phone: Start: 11-06-2020 Procedure Education Eprescribed prescriptions (G8553) [facility]; [facility] Work Phone: Start: 11-06-2020 Provider Instructions for Treatment Follow up in 6 weeks virtual front end developer javascript html css to arrange [facility]; [facility] Work Phone: Start: 10-23-2020 Procedure Education Eprescribed prescriptions (G8553) [facility]; [facility] Work Phone: Start: 09-25-2020 Procedure Education Eprescribed prescriptions (G8553) [facility]; [facility] Work Phone: Start: 09-25-2020 Provider Instructions for Treatment [facility]; [facility] Work Phone: Start: 08-13-2020 Procedure Education Eprescribed prescriptions (G8553) [facility] Work Phone: Start: 08-13-2020 Provider Instructions for Treatment [facility]; [facility] Work Phone: Start: 07-06-2020 Procedure Education Eprescribed prescriptions (G8553) [facility] Work Phone: Start: 07-06-2020 Provider Instructions for Treatment Follow up in 3 months make it in am and fasting it help desk technician to call and set up [facility] Work Phone: Start: 04-02-2020 Procedure Education Eprescribed prescriptions (G8553) [facility] Work Phone: Start: 04-02-2020 Provider Instructions for Treatment Follow up in 3 months [facility] Work Phone: Start: 02-27-2020 Patient Education [facility] Work Phone: Start: 01-25-2020 25 hydroxy includes fractions if performed CALCIFEDIOL (23613) [facility] Work Phone: Start: 01-25-2020 Assay of thyroid stimulating hormone tsh TSH (THYROID STIMULATING HORMONE) (23131) [facility] Work Phone: Start: 01-25-2020 TSH Qn TSH (THYROID STIMULATING HORMONE) (05460) [facility] Work Phone: Start: 01-25-2020 Lipid panel LIPID PANEL (41837) [facility] Work Phone: Start: 01-25-2020 Procedure Education Eprescribed prescriptions (G8553) [facility] Work Phone: Start: 01-25-2020 Provider Instructions for Treatment Follow up in 2 months [facility] Work Phone: Start: 01-11-2020 Procedure Education Eprescribed prescriptions (G8553) [facility] Work Phone: Start: 01-11-2020 Provider Instructions for Treatment [facility] Work Phone: Start: 12-28-2019 Procedure Education Eprescribed prescriptions (G8553) [facility] Work Phone: Start: 10-04-2019 Procedure Education Eprescribed prescriptions (G8553) [facility] Work Phone: Start: 10-04-2019 Provider Instructions for Treatment Follow up in 3 months [facility] Work Phone: Start: 09-06-2019 Procedure Education Eprescribed prescriptions (G8553) [facility] Work Phone: Start: 09-06-2019 Provider Instructions for Treatment Follow up in 2 weeks [facility] Work Phone: Start: 06-19-2019 Influenza vaccination Flu vaccine (#1) [place], [place] Start: 2017 [facility] Start: 03-25-2016 Provider Instructions for Treatment Follow up in 3 months [facility] Work Phone: Start: 01-09-2016 Provider Instructions for Treatment Follow up if no improvement or if symptoms worsen [facility] Work Phone: Start: 01-09-2016 Cul bact stool aerobic addl pathogens&id ea Culture, Stool (41941) [facility] Work Phone: Payers Date Payer Category Payer Medicare HUMANA MEDICARE HUMANA GOLD PLUS [id number] 2020-Present [phone] [address] [address] [place] [address] O [id number] 2019 Unknown [employer] [place] xxxxxxxxxxx 2019-Present [address] [place] [address] xxxxxxxxxxx [id number] 2016 Medicaid [employer] MEDIC AID MYCARE [employer] MEDICAID [id number] 2016-Present [phone] [address] [place] [address] Medicaid [id number] 2016 Medicaid [id number] 2016 Medicaid [employer] MED[employer] AID MYCARE [employer] MEDICAID [id number] 2016-Present [phone] [address] [place] [address] Medicaid [id number] 1977 Unknown [id number] 1977 Unknown [id number] 1977 Unknown [id number] 1977 Unknown [id number] Unknown Social History Date Type Detail Facility Start: 01-03-2020 End: 09-25-2020 Caffeine Use Caffeine Use [facility] Work Phone: Start: 02-12-2016 End: 01-03-2020 Tobacco smoking status NHIS Current every day smoker [facility] Start: 01-03-2020 Alcohol intake Ex-drinker (finding) [place] Sex Assigned At Not on [facility] [place] Start: 11-16-2015 End: 02-12-2016 Tobacco use and exposure Smokeless tobacco non-user [facility] Start: 12-26-2020 Alcohol intake Current non-drinker of alcohol (finding) [facility] Start: 1975 Sex Assigned At Female [facility] Start: 03-03-2022 Tobacco smoking status Light tobacco smoker (finding) [facility] Sex Assigned At Sex [facility] History of tobacco use Cigarette Smoker [facility] Start: 09-25-2020 End: 12-26-2020 Tobacco use panel [facility] National Score (1-100), lower number is lower risk Not on file [facility] Start: 09-15-2020 Gender identity Identifies as female gender (finding) [facility] Start: 09-15-2020 Sexual orientation Heterosexual (finding) [facility] Medical Equipment Procedure Code Equipment Code Equipment Origin al Text Equipment Identifier Dates See Instructions , 1 bottle of 100, # 1 EA, 11 Refill(s), Pharmacy: [facility], Hypoglycemia, 161, cm, 04/08/22 9:25:00 EDT, Height, 56.2 Start: 04-08-2022 See Instructions , 1 bottle of 100, # 1 EA, 11 Refill(s), Pharmacy: [facility], Hypoglycemia, 161, cm, 04/08/22 9:25:00 EDT, Height, 56.2 Start: 04-08-2022 See Instructions , 1 bottle of 100, # 1 EA, 11 Refill(s), Pharmacy: [facility], Hypoglycemia, 161, cm, 04/08/22 9:25:00 EDT, Height, 56.2 Start: 04-08-2022 See Instructions , 1 bottle of 100, # 1 EA, 11 Refill(s), Pharmacy: [facility], Hypoglycemia, 161, cm, 04/08/22 9:25:00 EDT, Height, 56.2 Start: 04-08-2022 See Instructions , 1 bottle of 100, # 1 EA, 11 Refill(s), Pharmacy: [facility], Hypoglycemia, 161, cm, 04/08/22 9:25:00 EDT, Height, 56.2 Start: 04-08-2022 See Instructions , 1 bottle of 100, # 1 EA, 11 Refill(s), Pharmacy: [facility], Hypoglycemia, 161, cm, 04/08/22 9:25:00 EDT, Height, 56.2 Start: 04-08-2022 See Instructions , 1 bottle of 100, # 1 EA, 11 Refill(s), Pharmacy: [facility], Hypoglycemia, 161, cm, 04/08/22 9:25:00 EDT, Height, 56.2 Start: 04-08-2022 See Instructions , 1 bottle of 100, # 1 EA, 11 Refill(s), Pharmacy: [facility], Hypoglycemia, 161, cm, 04/08/22 9:25:00 EDT, Height, 56.2 Start: 04-08-2022 See Instructions , 1 bottle of 100, # 1 EA, 11 Refill(s), Pharmacy: [facility], Hypoglycemia, 161, cm, 04/08/22 9:25:00 EDT, Height, 56.2 Start: 04-08-2022 Functional Status Date Assessment Result Facility 08-08-2022 Functional Status Assistive Device Cane A [facility] 08-08-2022 Functional Status Standard Safet y ID band on, Allergy Band on, Call device within reach, Bed in low position, Wheels locked, Upper/Half-Length side-rails up, Phone within reach, personal items within reach, Assistive devices within reach, Bedside Cart Locked, Visitor at bedside [facility] 05-09-2022 Functional Status Independent [facility] 05-09-2022 Functional Status Identified as high risk, Room located near nursing station [facility] Mental Status Date Assessment Result Facility 08-08-2022 Mental Status Orientation Oriented x 4 [facility] 05-09-2022 Mental Status Orientation Oriented x 4 [facility] 05-09-2022 Mental Status [facility] Clinical Notes 03-12-2022 to 09-30-2022 RadiologyRadiologyLaboratoryRadiologyLaboratoryRadiologyLaboratoryRadiologyLabor atoryRadiology Note Date & Type Note Facility 09-30-2022 Note HNO ID: [id number] Author: JAXON Sesay) Service: ? Author Type: Technologist Type: Progress Notes Filed: 09/30/2022 10:26 AM Note Text: Radiology Service Progress Note PATIENT NAME: Raquel Rboledo DATE OF SERVICE: September 30, 2022 TIME: 10:24 AM PATIENT IDENTITY VERIFICATION COMPLETED USING TWO (2) IDENTIFIERS: Name and Date of confirmed by patient verbally. FALL SCREENING: Has the patient had 2 falls in the last year or 1 fall with injury or currently using an Ambulatory Assistive Device (Walker, Cane, Wheelchair, Crutches, etc.)? No PATIENT GENDER DATA: Female. status: : No status: NO. PATIENT RELEVANT IMPLANT DATA REVIEWED: Yes RADIOLOGY DEPARTMENT: MR; Exam(s) Completed: Head: Routine Brain PERIPHERAL IV DATA: Not applicable SIGNED BY: RT Shama(R) September 30, 2022 10:24 AM [facility] 08-08-2022 Hospital Discharge instructions Patient Education 08/08/2022 18:19:01 DIZZINESS, Unk Cause Dizziness [Uncertain Cause] Dizziness is a common symptom sometimes described as lightheadedness or feeling like you are going to faint. If it lasts for only a few seconds and is related to changes in position (such as getting up after lying or sitting for a long time), it is usually not a sign of anything serious. Dizziness that lasts for minutes to hours, or comes on for no apparent reason, may be a sign of a more serious problem (such as dehydration, a medicine reaction, disease of the heart or brain). Today's exam did not show an exact cause for your dizzy spell . Sometimes additional tests are required before a cause can be found. Therefore, it is important to follow up with your doctor if your symptoms continue. Home Care: 1) If a dizzy spell occurs and lasts more than a few seconds, lie down until it passes. If you are lying down, then you cannot hurt yourself by falling if you do faint. 2) Do not drive or operate dangerous equipment until the dizzy spells have stopped for at least 48 hours. 3) If dizzy spells occur with sudden standing, this may be a sign of mild dehydration. Drink extra fluids over the next few days. 4) If you recently started a new medicine or if you had the dose of a current medicine increased (especially blood pressure medicine), talk with the prescribing doctor about your symptoms. Dose adjustments may be needed. Follow Up with your doctor for further evaluation within the next seven days, if your symptoms continue. Get Prompt Medical Attention if any of the following occur: -- Worsening of your symptoms -- Fainting, headache or seizure -- Repeated vomiting -- Feeling like you or the room is spinning -- Chest, arm, neck, back or jaw pain -- Palpitations (the sense that your heart is fluttering or beating fast or hard) -- Shortness of breath -- Blood in vomit or stool (black or red color) -- Weakness of an arm or leg or one side of the face -- Difficulty with speech or vision 0545-7710 [employer]. [address] [place] [address], [place] [address]. All rights reserved. This information is not intended as a substitute for professional medical care. Always follow your healthcare professional's instructions. Follow Up Care 08/08/2022 16:54:17 With:DAVID DAWSON APRN, CNP Address: [address] [place] [address]- When:2-4 days [facility] 08-08-2022 Emergency department Discharge summary Discharge Instructions Thank you for allowing [facility] to assist you with your healthcare needs. The following is important discharge information regarding your hospital visit. Diagnosis from Today's Visit Fever Fever Dizziness What to Do Next Instructions from Your Care Team XR Chest 2 Views Result Date: August 08, 2022 Verified By: DAVID RUDOLPH DO CLINICAL STATEMENT: IMPRESSION: No acute process. CT Sinus Result Date: August 08, 2022 Verified By: DAVID RUDOLPH DO CLINICAL STATEMENT: IMPRESSION: no acute sinusitis Discharge Outpatient Labwork - Ordered -- stool C&S, c.diff, salmonella, shigella, O&P, diarrhea, Results Notify to: DAVID DAWSON APRN, CNP, 08/08/22 19:00:00 EDT Post Acute Orders No qualifying data available. You Need to Schedule the Following Appointments Follow Up with DAVID DAWSON APRN, CNP When Within 2-4 days Where: [address] [place] [phone]- Allergies aspirin Contrast dye sulfa drug Medications Please ask your primary doctor or pharmacist before taking any other medication not listed, including over the counter drugs, herbal medications, vitamins and or supplements as they may interact with your home medications. What How Much When Why Instructions Last Dose Unchanged albuterol (albuterol MDI (90 mcg/ inh) CFC free inhalation aerosol) 2 puff(s) by inhalation Four (4) times a day as needed for as needed for wheezing Duration: 30 Days Unchanged atorvastatin (atorvastatin 10 mg oral tablet) 1 tab(s) by mouth Once a day Hyperlipidemia LDL goal <100 Duration: 90 Days Unchanged azithromycin (Zithromax 250 mg oral tablet) 1 tab(s) by mouth Once a day Duration: 5 Days follow directions on Z-Rashad Unchanged biotin (biotin 1000 mcg oral tablet) by mouth Once a day Unchanged calcium carbonate Unchanged chlorpheniramine-hydrocodone (Tussionex [employer] Susp use chlorpheniramine-hydrocodone ) 5 Milliliter by mouth Every 12 hours as needed for as needed for cold symptoms Duration: 5 Days Unchanged cholecalciferol (Vitamin D3 10,000 intl units (250 mcg) oral capsule) 1 cap by mouth Once a day Unchanged DME (Blood Glucose Test Machine) See instructions Hypoglycemia Use as directed Brand type per insurance or patient preference Unchanged DME (Blood Glucose Test Strips) See instructions Hypoglycemia 1 bottle of 100 Unchanged doxycycline (doxycycline hyclate 100 mg oral capsule) 1 cap by mouth Two (2) times a day Acute sinus infection Duration: 10 Days Unchanged fludrocortisone (fludrocortisone 0.1 mg oral tablet) 1 tab(s) by mouth Every day Hypotension Duration: 30 Days Unchanged fremanezumab (Ajovy 225 mg/ 1.5 mL subcutaneous solution) 225 Milligram Subcutaneous Once a month Unchanged gabapentin (gabapentin 600 mg oral tablet) 1 tab(s) by mouth Two (2) times a day Fibromyalgia Duration: 30 Days Fill Date: 2021 Unchanged herbal/ nutritional product (turmeric 500 mg oral capsule) Unchanged levocetirizine (Xyzal 5 mg oral tablet) 1 tab(s) by mouth Daily at bedtime Seasonal allergies Duration: 30 Days Unchanged loperamide (Imodium A-D 2 mg oral tablet) 1 tab(s) by mouth Every 6 hours as needed for abdominal pain/diarrhea Chronic diarrhea Duration: 10 Days not to exceed 8 capsules, or 16 mg, in 24 hours Unchanged melatonin (melatonin 5 mg oral tablet) 1 tab(s) by mouth Daily at bedtime as needed for as needed for insomnia Unchanged multivitamin (Vitamin B Complex oral capsule) 1 cap by mouth Every day Unchanged omega-3 polyunsaturated fatty acids (Melcroft-3 350 mg oral capsule) 1 cap by mouth Once a day Unchanged prazosin (prazosin 2 mg oral capsule) 1 cap by mouth Daily at bedtime PTSD (post-traumatic stress disorder) Duration: 30 Days Unchanged predniSONE (predniSONE 10 mg oral tablet) 3 tab(s) by mouth Once a day Duration: 5 Days Take 3 tabs daily for 5 days. Unchanged promethazine (promethazine 12.5 mg oral tablet) 1 tab(s) by mouth Every 8 hours Migraines Nausea Duration: 30 Days PRN: Chronic Nausea Unchanged SUMAtriptan (Imitrex 100 mg oral tablet) 1 tab(s) by mouth Once a day as needed for as needed for migraine headache may repeat dose after 2 hours up to a maximum of 200 mg in 24 hours Unchanged tiotropium (Spiriva Respimat 60 ACT 2.5 mcg/ inh inhalation aerosol) 2 puff(s) by inhalation Once a day COPD with emphysema Duration: 30 Days Unchanged tiZANidine (tiZANidine 4 mg oral tablet) 1 tab(s) by mouth Every 8 hours as needed for Muscle spasm Duration: 30 Days Unchanged triamcinolone nasal (Nasacort Allergy 24HR 55 mcg/ inh nasal spray) 2 spray(s) each nostril Once a day Seasonal allergies Duration: 30 Days Please take this list to your next doctor s visit. Bring all medications you take, including over the counter medications, herbals and other supplements with you to your doctor s visit. Patients and families are reminded to discard old lists and to update any records with all medication providers or retail pharmacies. Education Materials Dizziness [Uncertain Cause] Dizziness is a common symptom sometimes described as lightheadedness or feeling like you are going to faint. If it lasts for only a few seconds and is related to changes in position (such as getting up after lying or sitting for a long time), it is usually not a sign of anything serious. Dizziness that lasts for minutes to hours, or comes on for no apparent reason, may be a sign of a more serious problem (such as dehydration, a medicine reaction, disease of the heart or brain). Today's exam did not show an exact cause for your dizzy spell . Sometimes additional tests are required before a cause can be found. Therefore, it is important to follow up with your doctor if your symptoms continue. Home Care: 1) If a dizzy spell occurs and lasts more than a few seconds, lie down until it passes. If you are lying down, then you cannot hurt yourself by falling if you do faint. 2) Do not drive or operate dangerous equipment until the dizzy spells have stopped for at least 48 hours. 3) If dizzy spells occur with sudden standing, this may be a sign of mild dehydration. Drink extra fluids over the next few days. 4) If you recently started a new medicine or if you had the dose of a current medicine increased (especially blood pressure medicine), talk with the prescribing doctor about your symptoms. Dose adjustments may be needed. Follow Up with your doctor for further evaluation within the next seven days, if your symptoms continue. Get Prompt Medical Attention if any of the following occur: -- Worsening of your symptoms -- Fainting, headache or seizure -- Repeated vomiting -- Feeling like you or the room is spinning -- Chest, arm, neck, back or jaw pain -- Palpitations (the sense that your heart is fluttering or beating fast or hard) -- Shortness of breath -- Blood in vomit or stool (black or red color) -- Weakness of an arm or leg or one side of the face -- Difficulty with speech or vision [id number] [employer]. [address] [place] [address]. All rights reserved. This information is not intended as a substitute for professional medical care. Always follow your healthcare professional's instructions. Additional Information VACCINATE! IT SAVES LIVES! Members of the community who have not yet received the COVID-19 vaccine and would like to receive it can visit one of [facility] vaccine clinics. There are many vaccine clinic locations within the [facility]. For locations and available times, please visit [email or web address]. It is important to note that some COVID mobile vaccine clinics are held outdoors and may be canceled in rainy or stormy conditions. To learn more about pediatric vaccinations (ages 5-11), we invite you to visit the [facility] webpage. [email or web address] To learn more about the COVID-19 vaccine, we invite you to visit the [facility] website for a list of frequently asked questions. [email or web address] [email or web address] [facility] [employer] Patient Portal Access Instructions: Stay connected with your healthcare team and access your personal medical information anytime with the [facility] [employer] Patient Portal. If you would like a full copy of your medical records please contact the [facility] Medical Records Department Thursday through Thursday between 8a.m. and 4:30p.m. Please follow the directions below to access the portal: 1.Access the email account you provided upon registration to the [facility].2.Look for an invitation email from [facility].3.Open the email and access the invitation link: Accept Invitation to [facility]4.Fill in the required monteiro to create your account. Sign into [email or web address] with your username and password that you created in the above steps to stay up to date. You can then view a summary of results, a summary of your visits, and the ability to download your summaries to your computer or send the information securely to a physician. Remember that your healthcare information is confidential, so carefully consider who you will allow to register on the [employer] Patient Portal for access to your information. You can also access the [facility] Patient Portal on the [employer]. Simply click on Health Records under Health Data and then click on the [employer] logo. HOW TO SAFELY DISPOSE OF PRESCRIPTION MEDICATIONS Please use one of the following methods to safely dispose of your unused medications. 1.Use a drug disposal kit: the drug disposal pouch allows you to safely discard your old and unused drugs. Ask your nurse to give you one when you are discharged.2.Visit a local take-back location: Many local pharmacies and police departments have programs that collect old and unwanted prescription drugs. Call your local pharmacy or go to [email or web address] to find one close to you.3.Make use of household items: Use cat litter or old coffee grounds to dispose medications if other options are not available. Mix your drugs with these household products, seal them in an airtight container and throw it into the garbage. Call [facility]: [phone] to be sure your drugs can be disposed of in this way. Some medicines may require a different approach.4.Never flush your medications down the toilet. IF YOU HAVE BEEN PRESCRIBED AN OPIOIDS FOR PAIN If you have been prescribed an opioid (such as hydrocodone, oxycodone or morphine), it is critical to understand the possible side effects and risks of opioid pain medications. Even when taken as directed, opioids can have several side effects including: Tolerance, meaning you might need to take more of a medication for the same pain relief. Nausea, vomiting and/or constipation. Sleepiness, dizziness, dry mouth, confusion, depression or itching. Physical dependence, meaning you have withdrawal symptoms when a medication is stopped ? this can develop within a few days. KNOW YOUR RESPONSIBILITIES It is important to know exactly how much and how often to take the opioid pain medications you are prescribed. Never take opioids in higher amounts or more often than prescribed. Do not combine opioids with alcohol or other drugs that cause drowsiness, such as benzodiazepines, also known as benzos, including diazepam and alprazolam, muscle relaxants or sleep aids. Never sell or share prescription opioids. This is illegal. Store opioids in a secure place and out of reach of others (including children, family, friends and visitors). The last page(s) of this document has been signed and retained as a CHART COPY Signatures Patient Education Materials DIZZINESS, Unk Cause Medication Leaflets My discharge plan and instructions have been reviewed and explained to me and IFERCHO CHRISTINA M understand my current condition and have read and understand these discharge instructions. I have received a written copy of the plan/instructions. If I have questions, I am aware that I should contact my doctor. Patient/Package Sorter Signature: Date/Time: Relationship to Patient: ____ Witness Name/Signature: Date/Time: [facility] 08-08-2022 Note ORIGINAL EXAMINATION: CT OF THE SINUS WITHOUT CONTRAST 08/08/2022 6:04 pm TECHNIQUE: CT of the sinuses was performed without the administration of intravenous contrast. Multiplanar reformatted images are provided for review. Automated exposure control, iterative reconstruction, and/or weight based adjustment of the mA/kV was utilized to reduce the radiation dose to as low as reasonably achievable. COMPARISON: CT head 12/28/2019 HISTORY: ORDERING SYSTEM PROVIDED HISTORY: Reason for Exam: sinus infection, fever Cervical and uterine cancer 2004, partial hysterectomy 2004 FINDINGS: SINUSES/MASTOIDS: Minimal mucosal thickening within both maxillary sinuses, without sclerosis of the adjacent sinus anderson. The other paranasal sinuses cells are clear. The bilateral ostiomeatal units are patent. Ethmoid roofs are symmetric. The mastoid air cells are well aerated. SOFT TISSUES: Visualized soft tissues demonstrate no acute abnormality. The orbits are unremarkable. The visualized portion of the intracranial contents demonstrate no gross acute abnormality. IMPRESSION: Minimal mucosal thickening in both maxillary sinuses. I have personally reviewed the images of this examination and agree with the resident's findings and interpretation. Interpreted by: David Rudolph DO Preliminary Report By: Yuki Pena Electronically signed By David Rudolph DO Dictated Date: 08/08/2022 6:24:00 PM Prelim Date: 08/08/2022 6:28:37 PM Sign Date: 08/08/2022 6:33:36 PM Ordering Provider: [facility] 08-08-2022 Note ORIGINAL EXAMINATION: TWO XRAY VIEWS OF THE CHEST 08/08/2022 6:09 pm COMPARISON: None. HISTORY: ORDERING SYSTEM PROVIDED HISTORY: Reason for Exam: fever FINDINGS: The lungs are without acute focal process. There is no effusion or pneumothorax. The cardiomediastinal silhouette is without acute process. The osseous structures are without acute process. IMPRESSION: No acute process. Interpreted by: David Rudolph DO Preliminary Report By: David Rudolph DO Electronically signed By David Rudolph DO Dictated Date: 08/08/2022 6:14:26 PM Prelim Date: 08/08/2022 6:14:50 PM Sign Date: 08/08/2022 6:14:50 PM Ordering Provider: [facility] 08-08-2022 Note ORIGINAL EXAMINATION: TWO XRAY VIEWS OF THE CHEST 08/08/2022 6:09 pm COMPARISON: None. HISTORY: ORDERING SYSTEM PROVIDED HISTORY: Reason for Exam: fever FINDINGS: The lungs are without acute focal process. There is no effusion or pneumothorax. The cardiomediastinal silhouette is without acute process. The osseous structures are without acute process. IMPRESSION: No acute process. Interpreted by: David Rudolph DO Preliminary Report By: David Rudolph DO Electronically signed By David Rudolph DO Dictated Date: 08/08/2022 6:14:26 PM Prelim Date: 08/08/2022 6:14:50 PM Sign Date: 08/08/2022 6:14:50 PM Ordering Provider: ANTONIETTA GIPSON [facility] 08-08-2022 Note ORIGINAL EXAMINATION: CT OF THE SINUS WITHOUT CONTRAST 08/08/2022 6:04 pm TECHNIQUE: CT of the sinuses was performed without the administration of intravenous contrast. Multiplanar reformatted images are provided for review. Automated exposure control, iterative reconstruction, and/or weight based adjustment of the mA/kV was utilized to reduce the radiation dose to as low as reasonably achievable. COMPARISON: CT head 12/28/2019 HISTORY: ORDERING SYSTEM PROVIDED HISTORY: Reason for Exam: sinus infection, fever Cervical and uterine cancer 2003, partial hysterectomy 2003 FINDINGS: SINUSES/MASTOIDS: Minimal mucosal thickening within both maxillary sinuses, without sclerosis of the adjacent sinus anderson. The other paranasal sinuses cells are clear. The bilateral ostiomeatal units are patent. Ethmoid roofs are symmetric. The mastoid air cells are well aerated. SOFT TISSUES: Visualized soft tissues demonstrate no acute abnormality. The orbits are unremarkable. The visualized portion of the intracranial contents demonstrate no gross acute abnormality. IMPRESSION: Minimal mucosal thickening in both maxillary sinuses. I have personally reviewed the images of this examination and agree with the resident's findings and interpretation. Interpreted by: David Rudolph DO Preliminary Report By: Yuki Pena Electronically signed By David Rudolph DO Dictated Date: 08/08/2022 6:24:00 PM Prelim Date: 08/08/2022 6:28:37 PM Sign Date: 08/08/2022 6:33:36 PM Ordering Provider: ANTONIETTA GIPSON [facility] 05-09-2022 Hospital Discharge instructions Patient Education 05/09/2022 10:45:24 Bruises (Contusions) Bruises (Contusions) A contusion is a bruise. A bruise happens when a blow to your body doesn't break the skin but does break blood vessels beneath the skin. Blood leaking from the broken vessels causes redness and swelling. As it heals, your bruise is likely to turn colors like purple, green, and yellow. This is normal. The bruise should fade in 2 or 3 weeks. Factors that make you more likely to bruise Almost everyone bruises now and then. Certain people do bruise more easily than others. You're more prone to bruising as you get older. That's because blood vessels become more fragile with age. You're also more likely to bruise if you have a clotting disorder such as hemophilia or take medicines that reduce clotting, including aspirin and coumadin. You are also more likely to bruise if you have liver disease and or drink alcohol daily. When to go to the emergency room (ER) Bruises almost always heal on their own without special treatment. But for some people, a bad bruise can be serious. Seek medical care if you: Have a clotting disorder such as hemophilia Have cirrhosis or other serious liver disease Take blood-thinning medicines such as warfarin What to expect in the ER A doctor will examine your bruise and ask about any health conditions you have. In some cases, you may have a test to check how well your blood clots. Other treatment will depend on your needs. Follow-up care Sometimes a bruise gets worse instead of better. It may become larger and more swollen. This can occur when your body anderson off a small pool of blood under the skin (hematoma). In very rare cases, your doctor may need to drain extra blood from the area. Tip: Apply an ice pack or bag of frozen peas to a bruise. Keep a thin cloth between the ice or frozen peas and your skin. The cold can help reduce redness and swelling. [id number] [employer]. [address] [place] [address]. All rights reserved. This information is not intended as a substitute for professional medical care. Always follow your healthcare professional's instructions. Follow Up Care 05/09/2022 09:22:09 With:DAVID DAWSON APRN - [employer] Address: [address] [place] [address]- When:2-4 days With:Go to emergency room if symptoms worsen Address:Unknown When:2-4 days [facility] 05-09-2022 Note Discharge Instructions Thank you for allowing [facility] to assist you with your healthcare needs. The following is important discharge information regarding your hospital visit. Diagnosis from Today's Visit Contusion Fall What to Do Next Instructions from Your Care Team No qualifying data available. Post Acute Orders No qualifying data available. You Need to Schedule the Following Appointments Follow Up with DAVID DAWSON APRN, CNP When Within 2-4 days Where: [address] [facility] [place] [address]- Follow Up with Go to emergency room if symptoms worsen When Within 2-4 days Allergies Contrast dye aspirin sulfa drug Medications Please ask your primary doctor or pharmacist before taking any other medication not listed, including over the counter drugs, herbal medications, vitamins and or supplements as they may interact with your home medications. What How Much When Why Instructions Last Dose New acetaminophen-hydrocodone (Heidrick 325- 5 mg oral tablet) 1 tab(s) by mouth Every 4 hours as needed for for pain Contusion Duration: 3 Days Printed Prescription 9:50a Unchanged albuterol (albuterol MDI (90 mcg/ inh) CFC free inhalation aerosol) 2 puff(s) by inhalation Four (4) times a day as needed for as needed for wheezing Duration: 30 Days Unchanged atorvastatin (atorvastatin 10 mg oral tablet) 1 tab(s) by mouth Once a day Hyperlipidemia LDL goal <100 Duration: 90 Days Unchanged biotin (biotin 1000 mcg oral tablet) by mouth Once a day Unchanged calcium carbonate Unchanged cholecalciferol (Vitamin D3 10,000 intl units (250 mcg) oral capsule) 1 cap by mouth Once a day Unchanged DME (Blood Glucose Test Machine) See instructions Hypoglycemia Use as directed Brand type per insurance or patient preference Unchanged DME (Blood Glucose Test Strips) See instructions Hypoglycemia 1 bottle of 100 Unchanged fludrocortisone (fludrocortisone 0.1 mg oral tablet) 1 tab(s) by mouth Every day Hypotension Duration: 30 Days Unchanged fremanezumab (Ajovy 225 mg/ 1.5 mL subcutaneous solution) 225 Milligram Subcutaneous Once a month Unchanged gabapentin (gabapentin 300 mg oral capsule) 1 cap by mouth Three (3) times a day Fibromyalgia Duration: 90 Days Fill Date: 2021 Unchanged herbal/ nutritional product (turmeric 500 mg oral capsule) Unchanged melatonin (melatonin 5 mg oral tablet) 1 tab(s) by mouth Daily at bedtime as needed for as needed for insomnia Unchanged multivitamin (Vitamin B Complex oral capsule) 1 cap by mouth Every day Unchanged omega-3 polyunsaturated fatty acids (Melcroft-3 350 mg oral capsule) 1 cap by mouth Once a day Unchanged prazosin (prazosin 2 mg oral capsule) 1 cap by mouth Daily at bedtime PTSD (post-traumatic stress disorder) Duration: 90 Days Unchanged promethazine (promethazine 12.5 mg oral tablet) 1 tab(s) by mouth Every 8 hours Migraines Nausea Duration: 30 Days PRN: Chronic Nausea Unchanged SUMAtriptan (Imitrex 100 mg oral tablet) 1 tab(s) by mouth Once a day as needed for as needed for migraine headache may repeat dose after 2 hours up to a maximum of 200 mg in 24 hours Unchanged tiotropium (Spiriva Respimat 60 ACT 2.5 mcg/ inh inhalation aerosol) 2 puff(s) by inhalation Once a day COPD with emphysema Duration: 30 Days Unchanged tiZANidine (tiZANidine 4 mg oral tablet) 1 tab(s) by mouth Every 8 hours as needed for Muscle spasm Duration: 30 Days Please take this list to your next doctor s visit. Bring all medications you take, including over the counter medications, herbals and other supplements with you to your doctor s visit. Patients and families are reminded to discard old lists and to update any records with all medication providers or retail pharmacies. Medication Leaflets acetaminophen and hydrocodone (a SEET a MIN oh fen and gavin GHOSH done) Hycet, Lorcet, Heidrick, Verdrocet, Vicodin, Xodol, Zamicet What is the most important information I should know about acetaminophen and hydrocodone? MISUSE OF OPIOID MEDICINE CAN CAUSE ADDICTION, OVERDOSE, OR . Keep the medication in a place where others cannot get to it. Taking opioid medicine during may cause life-threatening withdrawal symptoms in the . Fatal side effects can occur if you use opioid medicine with alcohol, or with other drugs that cause drowsiness or slow your breathing. Stop taking this medicine and call your doctor right away if you have skin redness or a rash that spreads and causes blistering and peeling. What is acetaminophen and hydrocodone? Acetaminophen and hydrocodone is a combination medicine used to relieve moderate to severe pain. Acetaminophen and hydrocodone contains an opioid medicine, and may be habit-forming. Acetaminophen and hydrocodone may also be used for purposes not listed in this medication guide. What should I discuss with my healthcare provider before taking acetaminophen and hydrocodone? You should not use this medicine if you are allergic to acetaminophen or hydrocodone, or if you have: severe asthma or breathing problems; or a blockage in your stomach or intestines. Tell your doctor if you have ever had: breathing problems, sleep apnea (breathing stops during sleep); liver disease; a drug or alcohol addiction; kidney disease; a head injury or seizures; urination problems; or problems with your thyroid, pancreas, or gallbladder. If you use opioid medicine while you are , your baby could become dependent on the drug. This can cause life-threatening withdrawal symptoms in the baby after it is born. Babies born dependent on opioids may need medical treatment for several weeks. Ask a doctor before using opioid medicine if you are . Tell your doctor if you notice severe drowsiness or slow breathing in the nursing baby. How should I take acetaminophen and hydrocodone? Follow all directions on your prescription label. Never take this medicine in larger amounts, or for longer than prescribed. An overdose can damage your liver or cause . Tell your doctor if you feel an increased urge to use more of this medicine. Never share this medicine with another person, especially someone with a history of drug abuse or addiction. MISUSE CAN CAUSE ADDICTION, OVERDOSE, OR . Keep the medicine in a place where others cannot get to it. Selling or giving away this medicine is against the law. Measure liquid medicine carefully. Use the dosing syringe provided, or use a medicine dose-measuring device (not a kitchen spoon). If you need surgery or medical tests, tell the doctor ahead of time that you are using this medicine. You should not stop using this medicine suddenly. Follow your doctor's instructions about tapering your dose. Store at room temperature away from moisture and heat. Keep track of your medicine. You should be aware if anyone is using it improperly or without a prescription. Do not keep leftover opioid medication. Just one dose can cause in someone using this medicine accidentally or improperly. Ask your pharmacist where to locate a drug take-back disposal program. If there is no take-back program, flush the unused medicine down the toilet. What happens if I miss a dose? Since this medicine is used for pain, you are not likely to miss a dose. Skip any missed dose if it is almost time for your next dose. Do not use two doses at one time. What happens if I overdose? Seek emergency medical attention or call the Poison Help line at . An overdose of this medicine can be fatal, especially in a child or other person using the medicine without a prescription. Overdose symptoms may include nausea, vomiting, sweating, severe drowsiness, pinpoint pupils, slow breathing, or no breathing. Your doctor may recommend you get naloxone (a medicine to reverse an opioid overdose) and keep it with you at all times. A person caring for you can give the naloxone if you stop breathing or don't wake up. Your caregiver must still get emergency medical help and may need to perform CPR (cardiopulmonary resuscitation) on you while waiting for help to arrive. Anyone can buy naloxone from a pharmacy or local health department. Make sure any person caring for you knows where you keep naloxone and how to use it. What should I avoid while taking acetaminophen and hydrocodone? Avoid driving or operating machinery until you know how this medicine will affect you. Dizziness or drowsiness can cause falls, accidents, or severe injuries. Do not drink alcohol. Dangerous side effects or could occur. Ask a doctor or pharmacist before using any other medicine that may contain acetaminophen (sometimes abbreviated as APAP). Taking certain medications together can lead to a fatal overdose. What are the possible side effects of acetaminophen and hydrocodone? Get emergency medical help if you have signs of an allergic reaction: hives; difficulty breathing; swelling of your face, lips, tongue, or throat. Opioid medicine can slow or stop your breathing, and may occur. A person caring for you should give naloxone and/or seek emergency medical attention if you have slow breathing with long pauses, blue colored lips, or if you are hard to wake up. In rare cases, acetaminophen may cause a severe skin reaction that can be fatal. This could occur even if you have taken acetaminophen in the past and had no reaction. Stop taking this medicine and call your doctor right away if you have skin redness or a rash that spreads and causes blistering and peeling. Call your doctor at once if you have: noisy breathing, sighing, shallow breathing, breathing that stops; a light-headed feeling, like you might pass out; liver problems--nausea, upper stomach pain, tiredness, loss of appetite, dark urine, helen-colored stools, jaundice (yellowing of the skin or eyes); low cortisol levels-- nausea, vomiting, loss of appetite, dizziness, worsening tiredness or weakness; o high levels of serotonin in the body--agitation, hallucinations, fever, sweating, shivering, fast heart rate, muscle stiffness, twitching, loss of coordination, nausea, vomiting, diarrhea. Serious breathing problems may be more likely in older adults and in those who are debilitated or have wasting syndrome or chronic breathing disorders. Common side effects include: dizziness, drowsiness, feeling tired; nausea, vomiting, stomach pain; constipation; or headache. This is not a complete list of side effects and others may occur. Call your doctor for medical advice about side effects. You may report side effects to FDA at 4-712-LWP-2324. What other drugs will affect acetaminophen and hydrocodone? You may have breathing problems or withdrawal symptoms if you start or stop taking certain other medicines. Tell your doctor if you also use an antibiotic, antifungal medication, heart or blood pressure medication, seizure medication, or medicine to treat HIV or hepatitis C. Opioid medication can interact with many other drugs and cause dangerous side effects or . Be sure your doctor knows if you also use: cold or allergy medicines, bronchodilator asthma/COPD medication, or a diuretic ('water pill'); medicines for motion sickness, irritable bowel syndrome, or overactive bladder; other opioids--opioid pain medicine or prescription cough medicine; a sedative like Valium--diazepam, alprazolam, lorazepam, Xanax, Klonopin, Versed, and others; drugs that make you sleepy or slow your breathing--a sleeping pill, muscle relaxer, medicine to treat mood disorders or mental illness; drugs that affect serotonin levels in your body--a stimulant, or medicine for depression, Parkinson's disease, migraine headaches, serious infections, or nausea and vomiting. This list is not complete. Other drugs may affect acetaminophen and hydrocodone, including prescription and [id number] medicines, vitamins, and herbal products. Not all possible interactions are listed here. Where can I get more information? Your doctor or pharmacist can provide more information about acetaminophen and hydrocodone. Remember, keep this and all other medicines out of the reach of children, never share your medicines with others, and use this medication only for the indication prescribed. Every effort has been made to ensure that the information provided by [employer]. ('[employer]') is accurate, up-to-date, and complete, but no guarantee is made to that effect. Drug information contained herein may be time sensitive. [employer] information has been compiled for use by healthcare practitioners and consumers in the [place] and therefore [employer] does not warrant that uses outside of the [place] are appropriate, unless specifically indicated otherwise. [employer] drug information does not endorse drugs, diagnose patients or recommend therapy. [employer] drug information is an informational resource designed to assist licensed healthcare practitioners in caring for their patients and/or to serve consumers viewing this service as a supplement to, and not a substitute for, the expertise, skill, knowledge and judgment of healthcare practitioners. The absence of a warning for a given drug or drug combination in no way should be construed to indicate that the drug or drug combination is safe, effective or appropriate for any given patient. [employer] does not assume any responsibility for any aspect of healthcare administered with the aid of information [employer] provides. The information contained herein is not intended to cover all possible uses, directions, precautions, warnings, drug interactions, allergic reactions, or adverse effects. If you have questions about the drugs you are taking, check with your doctor, nurse or pharmacist. Copyright 4339-8508 [employer]. Version: 16.03. Revision Date: 11/20/2020. Education Materials Bruises (Contusions) A contusion is a bruise. A bruise happens when a blow to your body doesn't break the skin but does break blood vessels beneath the skin. Blood leaking from the broken vessels causes redness and swelling. As it heals, your bruise is likely to turn colors like purple, green, and yellow. This is normal. The bruise should fade in 2 or 3 weeks. Factors that make you more likely to bruise Almost everyone bruises now and then. Certain people do bruise more easily than others. You're more prone to bruising as you get older. That's because blood vessels become more fragile with age. You're also more likely to bruise if you have a clotting disorder such as hemophilia or take medicines that reduce clotting, including aspirin and coumadin. You are also more likely to bruise if you have liver disease and or drink alcohol daily. When to go to the emergency room (ER) Bruises almost always heal on their own without special treatment. But for some people, a bad bruise can be serious. Seek medical care if you: Have a clotting disorder such as hemophilia Have cirrhosis or other serious liver disease Take blood-thinning medicines such as warfarin What to expect in the ER A doctor will examine your bruise and ask about any health conditions you have. In some cases, you may have a test to check how well your blood clots. Other treatment will depend on your needs. Follow-up care Sometimes a bruise gets worse instead of better. It may become larger and more swollen. This can occur when your body anderson off a small pool of blood under the skin (hematoma). In very rare cases, your doctor may need to drain extra blood from the area. Tip: Apply an ice pack or bag of frozen peas to a bruise. Keep a thin cloth between the ice or frozen peas and your skin. The cold can help reduce redness and swelling. [id number] [employer] [address] [place], [place] [address]. All rights reserved. This information is not intended as a substitute for professional medical care. Always follow your healthcare professional's instructions. Additional Information VACCINATE! IT SAVES LIVES! Members of the community who have not yet received the COVID-19 vaccine and would like to receive it can visit one of [facility] vaccine clinics. There are many vaccine clinic locations within the [facility]. For locations and available times, please visit [email or web address]. It is important to note that some COVID mobile vaccine clinics are held outdoors and may be canceled in rainy or stormy conditions. To learn more about pediatric vaccinations (ages 5-11), we invite you to visit the [facility] webpage. [email or web address] To learn more about the COVID-19 vaccine, we invite you to visit the [employer] website for a list of frequently asked questions. [email or web address] [email or web address] [facility] Patient Portal Access Instructions: Stay connected with your healthcare team and access your personal medical information anytime with the [facility] [employer] [facility] Patient Portal. If you would like a full copy of your medical records please contact the [facility] Medical Records Department Thursday through Thursday between 8a.m. and 4:30p.m. Please follow the directions below to access the portal: 1.Access the email account you provided upon registration to the [facility].2.Look for an invitation email from [facility].3.Open the email and access the invitation link: Accept Invitation to [facility]4.Fill in the required monteiro to create your account. Sign into [email or web address] with your username and password that you created in the above steps to stay up to date. You can then view a summary of results, a summary of your visits, and the ability to download your summaries to your computer or send the information securely to a physician. Remember that your healthcare information is confidential, so carefully consider who you will allow to register on the [facility] [facility] Patient Portal for access to your information. You can also access the [facility] [facility] Patient Portal on the [employer] trung. Simply click on Health Records under Health Data and then click on the [employer] logo. HOW TO SAFELY DISPOSE OF PRESCRIPTION MEDICATIONS Please use one of the following methods to safely dispose of your unused medications. 1.Use a drug disposal kit: the drug disposal pouch allows you to safely discard your old and unused drugs. Ask your nurse to give you one when you are discharged.2.Visit a local take-back location: Many local pharmacies and police departments have programs that collect old and unwanted prescription drugs. Call your local pharmacy or go to http://bit.ly/5H8Ri5j to find one close to you.3.Make use of household items: Use cat litter or old coffee grounds to dispose medications if other options are not available. Mix your drugs with these household products, seal them in an airtight container and throw it into the garbage. Call [facility]: [phone] to be sure your drugs can be disposed of in this way. Some medicines may require a different approach.4.Never flush your medications down the toilet. IF YOU HAVE BEEN PRESCRIBED AN OPIOIDS FOR PAIN If you have been prescribed an opioid (such as hydrocodone, oxycodone or morphine), it is critical to understand the possible side effects and risks of opioid pain medications. Even when taken as directed, opioids can have several side effects including: Tolerance, meaning you might need to take more of a medication for the same pain relief. Nausea, vomiting and/or constipation. Sleepiness, dizziness, dry mouth, confusion, depression or itching. Physical dependence, meaning you have withdrawal symptoms when a medication is stopped ? this can develop within a few days. KNOW YOUR RESPONSIBILITIES It is important to know exactly how much and how often to take the opioid pain medications you are prescribed. Never take opioids in higher amounts or more often than prescribed. Do not combine opioids with alcohol or other drugs that cause drowsiness, such as benzodiazepines, also known as benzos, including diazepam and alprazolam, muscle relaxants or sleep aids. Never sell or share prescription opioids. This is illegal. Store opioids in a secure place and out of reach of others (including children, family, friends and visitors). The last page(s) of this document has been signed and retained as a CHART COPY Signatures Patient Education Materials Bruises (Contusions) Medication Leaflets acetaminophen and hydrocodone My discharge plan and instructions have been reviewed and explained to me and I,RAQUEL ROBLEDO M understand my current condition and have read and understand these discharge instructions. I have received a written copy of the plan/instructions. If I have questions, I am aware that I should contact my doctor. Patient/Package Sorter Signature: Date/Time: Relationship to Patient: ____ Witness Name/Signature: Date/Time: [facility] 05-09-2022 Note ORIGINAL EXAMINATION: ONE XRAY VIEW OF THE PELVIS AND TWO XRAY VIEWS RIGHT HIP 05/09/2022 10:01 am COMPARISON: None. HISTORY: ORDERING SYSTEM PROVIDED HISTORY: Reason for Exam: pain. Fall. FINDINGS: No acute fracture or dislocation is evident. Osseous mineralization is within normal limits. No visible aggressive osseous lesions. The pelvic ring is intact. The iliopectineal and ilioischial lines are preserved. The visualized sacrum is unremarkable with the mid to lower portions obscured due to overlying bowel. Visible joint spaces are preserved. Left-sided pelvic phleboliths. No radiopaque foreign body. IMPRESSION: 1. No acute fracture or dislocation. Interpreted by: David Morocho DO Preliminary Report By: David Morocho DO Electronically signed By David Morocho DO Dictated Date: 05/09/2022 10:12:21 AM Prelim Date: 05/09/2022 10:13:46 AM Sign Date: 05/09/2022 10:13:46 AM Ordering Provider: [facility] 05-09-2022 Note ORIGINAL EXAMINATION: THREE XRAY VIEWS OF THE RIGHT WRIST 05/09/2022 10:01 am COMPARISON: None. HISTORY: ORDERING SYSTEM PROVIDED HISTORY: Reason for Exam: pain FINDINGS: No acute fracture or dislocation is evident. Osseous mineralization is within normal limits. No visible aggressive osseous lesions. There is moderate joint space narrowing of the triscaphe articulation. Otherwise, visible joint spaces are maintained. Carpal arcs are normal. The scapholunate relationship is preserved. No radiopaque foreign body. IMPRESSION: 1. No acute fracture or dislocation. Interpreted by: David Morocho DO Preliminary Report By: David Morocho DO Electronically signed By David Morocho DO Dictated Date: 05/09/2022 10:10:11 AM Prelim Date: 05/09/2022 10:11:14 AM Sign Date: 05/09/2022 10:11:14 AM Ordering Provider: [facility] 05-09-2022 Note ORIGINAL EXAMINATION: 3 XRAY VIEWS OF THE LEFT FINGER 05/09/2022 10:01 am COMPARISON: None. HISTORY: ORDERING SYSTEM PROVIDED HISTORY: Reason for Exam: pain status post fall. FINDINGS: No acute fracture or dislocation is evident. Osseous mineralization is within normal limits. Visible joint spaces are grossly maintained. No aggressive osseous lesions are noted within the provided field of view. No radiopaque foreign body. IMPRESSION: 1. No acute fracture or dislocation. Interpreted by: David Morocho DO Preliminary Report By: David Morocho DO Electronically signed By David Morocho DO Dictated Date: 05/09/2022 10:08:47 AM Prelim Date: 05/09/2022 10:09:53 AM Sign Date: 05/09/2022 10:09:53 AM Ordering Provider: [facility] 05-09-2022 Note ORIGINAL EXAMINATION: THREE XRAY VIEWS OF THE RIGHT KNEE 05/09/2022 10:01 am COMPARISON: None. HISTORY: ORDERING SYSTEM PROVIDED HISTORY: Reason for Exam: Pain posterolateral knee status post fall. FINDINGS: There is no acute fracture or dislocation. Osseous mineralization is within normal limits. Slight lateral femorotibial compartment joint space narrowing. Intact medial femorotibial compartment and patellofemoral compartment joint spaces. No significant knee joint effusion is seen. No aggressive osseous lesions are noted. IMPRESSION: 1. No acute osseous abnormalities. 2. Minimal lateral femorotibial compartment osteoarthrosis. Interpreted by: David Morocho DO Preliminary Report By: David Morocho DO Electronically signed By David Morocho DO Dictated Date: 05/09/2022 10:07:07 AM Prelim Date: 05/09/2022 10:08:36 AM Sign Date: 05/09/2022 10:08:36 AM Ordering Provider: [facility] 05-09-2022 Note ORIGINAL EXAMINATION: ONE XRAY VIEW OF THE PELVIS AND TWO XRAY VIEWS RIGHT HIP 05/09/2022 10:01 am COMPARISON: None. HISTORY: ORDERING SYSTEM PROVIDED HISTORY: Reason for Exam: pain. Fall. FINDINGS: No acute fracture or dislocation is evident. Osseous mineralization is within normal limits. No visible aggressive osseous lesions. The pelvic ring is intact. The iliopectineal and ilioischial lines are preserved. The visualized sacrum is unremarkable with the mid to lower portions obscured due to overlying bowel. Visible joint spaces are preserved. Left-sided pelvic phleboliths. No radiopaque foreign body. IMPRESSION: 1. No acute fracture or dislocation. Interpreted by: David Morocho DO Preliminary Report By: David Morocho DO Electronically signed By David Morocho DO Dictated Date: 05/09/2022 10:12:21 AM Prelim Date: 05/09/2022 10:13:46 AM Sign Date: 05/09/2022 10:13:46 AM Ordering Provider: [facility] 05-09-2022 Note ORIGINAL EXAMINATION: THREE XRAY VIEWS OF THE RIGHT WRIST 05/09/2022 10:01 am COMPARISON: None. HISTORY: ORDERING SYSTEM PROVIDED HISTORY: Reason for Exam: pain FINDINGS: No acute fracture or dislocation is evident. Osseous mineralization is within normal limits. No visible aggressive osseous lesions. There is moderate joint space narrowing of the triscaphe articulation. Otherwise, visible joint spaces are maintained. Carpal arcs are normal. The scapholunate relationship is preserved. No radiopaque foreign body. IMPRESSION: 1. No acute fracture or dislocation. Interpreted by: David Morocho DO Preliminary Report By: David Morocho DO Electronically signed By David Morocho DO Dictated Date: 05/09/2022 10:10:11 AM Prelim Date: 05/09/2022 10:11:14 AM Sign Date: 05/09/2022 10:11:14 AM Ordering Provider: [facility] 05-09-2022 Note ORIGINAL EXAMINATION: THREE XRAY VIEWS OF THE RIGHT KNEE 05/09/2022 10:01 am COMPARISON: None. HISTORY: ORDERING SYSTEM PROVIDED HISTORY: Reason for Exam: Pain posterolateral knee status post fall. FINDINGS: There is no acute fracture or dislocation. Osseous mineralization is within normal limits. Slight lateral femorotibial compartment joint space narrowing. Intact medial femorotibial compartment and patellofemoral compartment joint spaces. No significant knee joint effusion is seen. No aggressive osseous lesions are noted. IMPRESSION: 1. No acute osseous abnormalities. 2. Minimal lateral femorotibial compartment osteoarthrosis. Interpreted by: David Morocho DO Preliminary Report By: David Morocho DO Electronically signed By David Morocho DO Dictated Date: 05/09/2022 10:07:07 AM Prelim Date: 05/09/2022 10:08:36 AM Sign Date: 05/09/2022 10:08:36 AM Ordering Provider: [facility] 05-09-2022 Note ORIGINAL EXAMINATION: 3 XRAY VIEWS OF THE LEFT FINGER 05/09/2022 10:01 am COMPARISON: None. HISTORY: ORDERING SYSTEM PROVIDED HISTORY: Reason for Exam: pain status post fall. FINDINGS: No acute fracture or dislocation is evident. Osseous mineralization is within normal limits. Visible joint spaces are grossly maintained. No aggressive osseous lesions are noted within the provided field of view. No radiopaque foreign body. IMPRESSION: 1. No acute fracture or dislocation. Interpreted by: David Morocho DO Preliminary Report By: David Morocho DO Electronically signed By David Morocho DO Dictated Date: 05/09/2022 10:08:47 AM Prelim Date: 05/09/2022 10:09:53 AM Sign Date: 05/09/2022 10:09:53 AM Ordering Provider: [facility] 03-12-2022 Note Physical Therapy Inpatient Evaluation Medical Diagnosis: slurred speech Therapy Diagnosis: Rank Code Description 1 R26 Abnormalities of gait and mobility 2 R53.1 Weakness Demographics: Age: 46Y Gender: Female Primary Language: Niuean Preferred Language: Niuean Referring Service/Team: Medicine Past Medical History: Per medical charting Past Medical History COPD Fibromyalgia Panic disorder Night terrors History of Present Illness: Date of Onset: 03/11/22 Additional Information: Per medical charting This is a 46-year-old female with a past medical history significant for fibromyalgia, panic disorder and night terrors who was advised to present to the ED by her PCP due to slurred speech and left lower extremity weakness. As per patient and friend at bedside, the patient had presented to [facility] on 03/08/2022 after she had started to experience left facial drooping, slurred speech and left leg and arm weakness that started at around 2:40 PM. She had a CT of the head and possibly a CTA head and neck which were both unremarkable. The patient was diagnosed with complex migraine and discharged home after resolution of all her symptoms around 6 PM. On Thursday, the patient started to experience slurred speech. She started to experience facial droop around 2 PM on Thursday. She also had gait instability and a fall without associated head trauma and attempted to break the fall with her left arm. At around noon today, the patient started to have left leg and arm weakness and when she went to see her PCP, her PCP had requested that she present to the emergency department for further evaluation. 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 She also may have had a similar episode in 2013. She has associated blurred vision from the left arm, numbness of the left side of her face, and bilateral leg tingling which she reports is [facility] PATIENT NAME: RAQUEL ROBLEDO [address] [place] MEDICAL REC #: [id number] [place] [address] ADMIT DATE: 03/11/22 SERVICE DATE: 03/12/22 Physical Therapy Assessment Report ATTENDING PHY: Rebeka Burden MD chronic. To her knowledge, the patient has never been diagnosed with atrial fibrillation. She has had no recent illness or sick contacts though she is unvaccinated against COVID. She has not hiked or had any tick bites recently. No recent travel out of [facility]. She has not been under any more stress recently than usual however she did have a panic attack earlier today but did not take Ativan for this. She denies any illicit drug use. Of note, her mother and maternal grandparents had multiple sclerosis. In the ED, BP 134/59, HR 82, RR 14, SPO2 99% on room air, T98.1. CBC and BMP were unremarkable. CT head and chest x-ray were negative. EKG shows NSR at 66bpm with poor R wave progression and T wave inversions in V1-2 which were present in old EKG. She recieved ASA 325mg x1. Patient was admitted under MTS service for further management Date of Admission: 03/11/2022 10:29:00 PM Rehabilitation Precautions/Restrictions: fall risk, left sided weakness Imaging/Testing Results from Chart: Brain MRI: IMPRESSION: No evidence of an acute intracranial process, pathologic intracranial enhancement, or mass effect. SUBJECTIVE Prior Level of Functioning: Indoor Mobility: Patient completed the activities by him/herself, with or without an assistive device, with no assistance from a helper. Stairs: Patient completed the activities by him/herself, with or without an assistive device, with no assistance from a helper. Patient reports that she is independent with ADL's and ambualtion. Prior Device Use: Performance GG110. Prior Device None of Above Yes Patient/Caregiver Goals: Patient's functional goals: To go home. Pain: Patient currently has pain. Location: low back Type: Acute Quality: Aching. Pain Scale: Visual Analog (VAS). Patient reports a pain level of 10 out of 10. Patient's acceptable level of pain 0 out of 10. Interferes with physical activity. Pain is alleviated by: rest [facility] PATIENT NAME: RAQUEL ROBLEDO [address] [place] MEDICAL REC #: [id number] [place] [address] ADMIT DATE: 03/11/22 SERVICE DATE: 03/12/22 Physical Therapy Assessment Report ATTENDING PHY: Rebeka Burden MD Pain is exacerbated by: movement Interventions: Repositioned patient. Home Environment: Patient lives alone. Patient lives in an apartment. Home is single level. Patient is not required to manage stairs wi (more content not included)... [facility] 03-12-2022 Note [facility] [place] Evaluation + Plan note Future Appointments Appointment Date:05/15/2022 11:00:00 AM Scheduled Provider:DAVID DAWSON APRN, CNP Location:[facility] Appointment Type:PC OV Follow Up Appointment Date:07/08/2022 01:40:00 PM Scheduled Provider:DAVID DAWSON APRN, CNP Location:[facility] Appointment Type:PC OV Controlled Medication [facility] Evaluation + Plan note Future Appointments Appointment Date:08/11/2022 10:30:00 AM Scheduled Provider: Location:[facility] Appointment Type:MA Mammogram Screening Bilateral w/ Franck Appointment Date:10/07/2022 02:20:00 PM Scheduled Provider:DAVID DAWSON APRN, CNP Location:[facility] Appointment Type:PC OV Controlled Medication Diagnostic Tests PendingUrine Culture 08/08/22Blood Culture (bacterial) 08/08/22Blood Culture (bacterial) 08/08/22 Future Scheduled TestsMA Mammo Screening Bilateral w/ Franck 08/11/22 [facility] Evaluation + Plan note Future Appointments Appointment Date:08/21/2022 02:00:00 PM Scheduled Provider: Location:[facility] Appointment Type:MA Mammogram Screening Bilateral w/ Franck Appointment Date:10/07/2022 02:20:00 PM Scheduled Provider:DAVID DAWSON APRN, CNP Location:[facility] Appointment Type:PC OV Controlled Medication Future Scheduled TestsMA Mammo Screening Bilateral w/ Franck 08/21/22 [facility] Evaluation + Plan note Future Appointments Appointment Date:08/21/2022 02:00:00 PM Scheduled Provider: Location:[facility] Appointment Type:MA Mammogram Screening Bilateral w/ Franck Appointment Date:08/25/2022 02:20:00 PM Scheduled Provider:DAVID DAWSON APRN, CNP Location:[facility] Appointment Type:PC OV Follow Up Appointment Date:10/07/2022 02:20:00 PM Scheduled Provider:DAVID DAWSON APRN, CNP Location:[facility] Appointment Type:PC OV Controlled Medication Future Scheduled TestsC-Reactive Protein 08/15/22Mononucleosis Screen 08/15/22Bordetella Pertussis PCR 08/15/22Complete Blood Count 08/15/22Epstein Sampson Virus Antibody Titer 08/15/22Sedimentation Rate Automated 08/15/22Complete Metabolic Panel 08/15/22Respiratory ID Panel with COVID-19 by PCR 08/15/22MA Mammo Screening Bilateral w/ Franck 08/21/22US Abdomen Complete 08/15/22 [facility] Evaluation + Plan note Future Appointments Appointment Date:10/07/2022 02:20:00 PM Scheduled Provider:DAVID DAWSON [employer] Location:[facility] Appointment Type:PC OV Controlled Medication Future Scheduled TestsBordetella Pertussis PCR 08/15/22Epstein Sampson Virus Antibody Titer 08/15/22Respiratory ID Panel with COVID-19 by PCR 08/15/22US Abdomen Complete 08/15/22 [facility] Evaluation + Plan note Future Appointments Appointment Date:02/02/2023 02:00:00 PM Scheduled Provider:DAVID DAWSON [employer] Location:[facility] Appointment Type:PC OV Controlled Medication Future Scheduled TestsPathology Nurse Request 11/05/22Bordetella Pertussis PCR 08/15/22Epstein Sampson Virus Antibody Titer 08/15/22Respiratory ID Panel with COVID-19 by PCR 08/15/22US Abdomen Complete 08/15/22XR Upper GI 10/02/22 [facility] Evaluation + Plan note Future Appointments Appointment Date:09/25/2023 01:00:00 PM Scheduled Provider:DAVID DAWSON [employer] Location:[facility] Appointment Type:PC Wellness Annual Appointment Date:02/12/2024 01:40:00 PM Scheduled Provider:ADVID DAWSON [employer] Location:[facility] Appointment Type:PC OV Follow Up Future Scheduled TestsPathology Nurse Request 11/05/22Complete Blood Count 02/12/24Lipid Profile 02/12/24Vitamin D Level 02/12/24Complete Metabolic Panel 02/12/24XR Upper GI 10/02/22 [facility] Hospital course Narrative No data available for this section [facility] Discharge instructions No data available for this section [facility]; [facility] Work Phone: Instructions* Name Dates Details How to Access Health Informa tion Online using Patient Portal and [employer] Apps Indication:Smoker Start:11-Feb-2021 Instruction Type:Patient Education Patient Instructions Indication:Smoker Start:11-Feb-2021 Instruction Type:Provider Instructions for Treatment Patient Instructions Indication:Smoker Start:18-Dec-2020 Instruction Type:Provider Instructions for Treatment How to Access Health Informa tion Online using Patient Portal and [employer] Apps Indication:Smoker Start:18-Dec-2020 Instruction Type:Patient Education Patient Instructions Indication:Vitamin D deficiency Start:06-Nov-2020 Instruction Type:Provider Instructions for Treatment How to Access Health Informa tion Online using Patient Portal and [employer] Apps Indication:BMI 21.0-21.9, adult Start:06-Nov-2020 Instruction Type:Patient Education Patient Instructions Indication:Smoker Start:23-Oct-2020 Instruction Type:Provider Instructions for Treatment How to Access Health Informa tion Online using Patient Portal and [employer] Apps Indication:Smoker Start:23-Oct-2020 Instruction Type:Patient Education How to access health informa tion online Indication:BMI 25.0-25.9,adult Start:25-Sep-2020 Instruction Type:Patient Education How to access health informa tion online - Detail Indication:BMI 25.0-25.9,adult Start:25-Sep-2020 Instruction Type:Patient Education Patient Instructions Indication:BMI 25.0-25.9,adult Start:25-Sep-2020 Instruction Type:Provider Instructions for Treatment How to access health informa tion online Indication:Sinus complaint Start:13-Aug-2020 Instruction Type:Patient Education How to access health informa tion online - Detail Indication:Sinus complaint Start:13-Aug-2020 Instruction Type:Patient Education Patient Instructions Indication:Sinus complaint Start:13-Aug-2020 Instruction Type:Provider Instructions for Treatment How to access health informa tion online Indication:Smoker Start:06-Jul-2020 Instruction Type:Patient Education How to access health informa tion online - Detail Indication:Smoker Start:06-Jul-2020 Instruction Type:Patient Education Patient Instructions Indication:Smoker Start:06-Jul-2020 Instruction Type:Provider Instructions for Treatment How to access health informa tion online Indication:Smoker Start:02-Apr-2020 Instruction Type:Patient Education How to access health informa tion online - Detail Indication:Smoker Start:02-Apr-2020 Instruction Type:Patient Education Patient Instructions Indication:Smoker Start:02-Apr-2020 Instruction Type:Provider Instructions for Treatment How to access health informa tion online Indication:BMI 23.0-23.9, adult Start:25-Jan-2020 Instruction Type:Patient Education How to access health informa tion online - Detail Indication:BMI 23.0-23.9, adult Start:25-Jan-2020 Instruction Type:Patient Education Patient Instructions Indication:BMI 23.0-23.9, adult Start:25-Jan-2020 Instruction Type:Provider Instructions for Treatment How to access health informa tion online Indication:Smoker Start:11-Jan-2020 Instruction Type:Patient Education How to access health informa tion online - Detail Indication:Smoker Start:11-Jan-2020 Instruction Type:Patient Education Patient Instructions Indication:Smoker Start:11-Jan-2020 Instruction Type:Provider Instructions for Treatment How to access health informa tion online Indication:Smoker Start:28-Dec-2019 Instruction Type:Patient Education How to access health informa tion online - Detail Indication:Smoker Start:28-Dec-2019 Instruction Type:Patient Education Patient Instructions Indication:Smoker Start:28-Dec-2019 Instruction Type:Provider Instructions for Treatment How to access health informa tion online Indication:Smoker Start:04-Oct-2019 Instruction Type:Patient Education How to access health informa tion online - Detail Indication:Smoker Start:04-Oct-2019 Instruction Type:Patient Education Patient Instructions Indication:Smoker Start:04-Oct-2019 Instruction Type:Provider Instructions for Treatment How to access health informa tion online Indication:Smoker Start:06-Sep-2019 Instruction Type:Patient Education How to access health informa tion online - Detail Indication:Smoker Start:06-Sep-2019 Instruction Type:Patient Education Patient Instructions Indication:Smoker Start:06-Sep-2019 Instruction Type:Provider Instructions for Treatment Patient Instructions Indication:Campylobacter gastroenteritis Start:09-Jan-2016 Instruction Type:Provider Instructions for Treatment How to access health informa tion online Indication:Abdominal pain, acute Start:01-Oct-2015 Instruction Type:Patient Education How to access health informa tion online - Detail Indication:Abdominal pain, acute Start:01-Oct-2015 Instruction Type:Patient Education Patient Instructions Indication:Abdominal pain, acute Start:01-Oct-2015 Instruction Type:Provider Instructions for Treatment Patient Instructions Indication:Emphysema/COPD Start:03-May-2014 Instruction Type:Provider Instructions for Treatment Patient Instructions Indication:Bipolar disorder Start:05-Apr-2014 Instruction Type:Provider Instructions for Treatment Patient Instructions Indication:Asthma Start:21-Nov-2013 Instruction Type:Provider Instructions for Treatment [facility]; [facility] Work Phone: Instructions* Name Dates Details How to Access Health Informa tion Online using Patient Portal and [employer] Apps Indication:Smoker Start:11-Feb-2021 Instruction Type:Patient Education Patient Instructions Indication:Smoker Start:11-Feb-2021 Instruction Type:Provider Instructions for Treatment Patient Instructions Indication:Smoker Start:18-Dec-2020 Instruction Type:Provider Instructions for Treatment How to Access Health Informa tion Online using Patient Portal and [employer] Apps Indication:Smoker Start:18-Dec-2020 Instruction Type:Patient Education Patient Instructions Indication:Vitamin D deficiency Start:06-Nov-2020 Instruction Type:Provider Instructions for Treatment How to Access Health Informa tion Online using Patient Portal and [employer] Apps Indication:BMI 21.0-21.9, adult Start:06-Nov-2020 Instruction Type:Patient Education Patient Instructions Indication:Smoker Start:23-Oct-2020 Instruction Type:Provider Instructions for Treatment How to Access Health Informa tion Online using Patient Portal and [employer] Apps Indication:Smoker Start:23-Oct-2020 Instruction Type:Patient Education How to access health informa tion online Indication:BMI 25.0-25.9,adult Start:25-Sep-2020 Instruction Type:Patient Education How to access health informa tion online - Detail Indication:BMI 25.0-25.9,adult Start:25-Sep-2020 Instruction Type:Patient Education Patient Instructions Indication:BMI 25.0-25.9,adult Start:25-Sep-2020 Instruction Type:Provider Instructions for Treatment How to access health informa tion online Indication:Sinus complaint Start:13-Aug-2020 Instruction Type:Patient Education How to access health informa tion online - Detail Indication:Sinus complaint Start:13-Aug-2020 Instruction Type:Patient Education Patient Instructions Indication:Sinus complaint Start:13-Aug-2020 Instruction Type:Provider Instructions for Treatment How to access health informa tion online Indication:Smoker Start:06-Jul-2020 Instruction Type:Patient Education How to access health informa tion online - Detail Indication:Smoker Start:06-Jul-2020 Instruction Type:Patient Education Patient Instructions Indication:Smoker Start:06-Jul-2020 Instruction Type:Provider Instructions for Treatment How to access health informa tion online Indication:Smoker Start:02-Apr-2020 Instruction Type:Patient Education How to access health informa tion online - Detail Indication:Smoker Start:02-Apr-2020 Instruction Type:Patient Education Patient Instructions Indication:Smoker Start:02-Apr-2020 Instruction Type:Provider Instructions for Treatment How to access health informa tion online Indication:BMI 23.0-23.9, adult Start:25-Jan-2020 Instruction Type:Patient Education How to access health informa tion online - Detail Indication:BMI 23.0-23.9, adult Start:25-Jan-2020 Instruction Type:Patient Education Patient Instructions Indication:BMI 23.0-23.9, adult Start:25-Jan-2020 Instruction Type:Provider Instructions for Treatment How to access health informa tion online Indication:Smoker Start:11-Jan-2020 Instruction Type:Patient Education How to access health informa tion online - Detail Indication:Smoker Start:11-Jan-2020 Instruction Type:Patient Education Patient Instructions Indication:Smoker Start:11-Jan-2020 Instruction Type:Provider Instructions for Treatment How to access health informa tion online Indication:Smoker Start:28-Dec-2019 Instruction Type:Patient Education How to access health informa tion online - Detail Indication:Smoker Start:28-Dec-2019 Instruction Type:Patient Education Patient Instructions Indication:Smoker Start:28-Dec-2019 Instruction Type:Provider Instructions for Treatment How to access health informa tion online Indication:Smoker Start:04-Oct-2019 Instruction Type:Patient Education How to access health informa tion online - Detail Indication:Smoker Start:04-Oct-2019 Instruction Type:Patient Education Patient Instructions Indication:Smoker Start:04-Oct-2019 Instruction Type:Provider Instructions for Treatment How to access health informa tion online Indication:Smoker Start:06-Sep-2019 Instruction Type:Patient Education How to access health informa tion online - Detail Indication:Smoker Start:06-Sep-2019 Instruction Type:Patient Education Patient Instructions Indication:Smoker Start:06-Sep-2019 Instruction Type:Provider Instructions for Treatment Patient Instructions Indication:Campylobacter gastroenteritis Start:09-Jan-2016 Instruction Type:Provider Instructions for Treatment How to access health informa tion online Indication:Abdominal pain, acute Start:01-Oct-2015 Instruction Type:Patient Education How to access health informa tion online - Detail Indication:Abdominal pain, acute Start:01-Oct-2015 Instruction Type:Patient Education Patient Instructions Indication:Abdominal pain, acute Start:01-Oct-2015 Instruction Type:Provider Instructions for Treatment Patient Instructions Indication:Emphysema/COPD Start:03-May-2014 Instruction Type:Provider Instructions for Treatment Patient Instructions Indication:Bipolar disorder Start:05-Apr-2014 Instruction Type:Provider Instructions for Treatment Patient Instructions Indication:Asthma Start:21-Nov-2013 Instruction Type:Provider Instructions for Treatment [facility]; [facility] Work Phone: Instructions* Name Dates Details How to Access Health Informa tion Online using Patient Portal and [employer] Apps Indication:Smoker Start:11-Feb-2021 Instruction Type:Patient Education Patient Instructions Indication:Smoker Start:11-Feb-2021 Instruction Type:Provider Instructions for Treatment Patient Instructions Indication:Smoker Start:18-Dec-2020 Instruction Type:Provider Instructions for Treatment How to Access Health Informa tion Online using Patient Portal and [employer] Apps Indication:Smoker Start:18-Dec-2020 Instruction Type:Patient Education Patient Instructions Indication:Vitamin D deficiency Start:06-Nov-2020 Instruction Type:Provider Instructions for Treatment How to Access Health Informa tion Online using Patient Portal and [employer] Apps Indication:BMI 21.0-21.9, adult Start:06-Nov-2020 Instruction Type:Patient Education Patient Instructions Indication:Smoker Start:23-Oct-2020 Instruction Type:Provider Instructions for Treatment How to Access Health Informa tion Online using Patient Portal and [employer] Apps Indication:Smoker Start:23-Oct-2020 Instruction Type:Patient Education How to access health informa tion online Indication:BMI 25.0-25.9,adult Start:25-Sep-2020 Instruction Type:Patient Education How to access health informa tion online - Detail Indication:BMI 25.0-25.9,adult Start:25-Sep-2020 Instruction Type:Patient Education Patient Instructions Indication:BMI 25.0-25.9,adult Start:25-Sep-2020 Instruction Type:Provider Instructions for Treatment How to access health informa tion online Indication:Sinus complaint Start:13-Aug-2020 Instruction Type:Patient Education How to access health informa tion online - Detail Indication:Sinus complaint Start:13-Aug-2020 Instruction Type:Patient Education Patient Instructions Indication:Sinus complaint Start:13-Aug-2020 Instruction Type:Provider Instructions for Treatment How to access health informa tion online Indication:Smoker Start:06-Jul-2020 Instruction Type:Patient Education How to access health informa tion online - Detail Indication:Smoker Start:06-Jul-2020 Instruction Type:Patient Education Patient Instructions Indication:Smoker Start:06-Jul-2020 Instruction Type:Provider Instructions for Treatment How to access health informa tion online Indication:Smoker Start:02-Apr-2020 Instruction Type:Patient Education How to access health informa tion online - Detail Indication:Smoker Start:02-Apr-2020 Instruction Type:Patient Education Patient Instructions Indication:Smoker Start:02-Apr-2020 Instruction Type:Provider Instructions for Treatment How to access health informa tion online Indication:BMI 23.0-23.9, adult Start:25-Jan-2020 Instruction Type:Patient Education How to access health informa tion online - Detail Indication:BMI 23.0-23.9, adult Start:25-Jan-2020 Instruction Type:Patient Education Patient Instructions Indication:BMI 23.0-23.9, adult Start:25-Jan-2020 Instruction Type:Provider Instructions for Treatment How to access health informa tion online Indication:Smoker Start:11-Jan-2020 Instruction Type:Patient Education How to access health informa tion online - Detail Indication:Smoker Start:11-Jan-2020 Instruction Type:Patient Education Patient Instructions Indication:Smoker Start:11-Jan-2020 Instruction Type:Provider Instructions for Treatment How to access health informa tion online Indication:Smoker Start:28-Dec-2019 Instruction Type:Patient Education How to access health informa tion online - Detail Indication:Smoker Start:28-Dec-2019 Instruction Type:Patient Education Patient Instructions Indication:Smoker Start:28-Dec-2019 Instruction Type:Provider Instructions for Treatment How to access health informa tion online Indication:Smoker Start:04-Oct-2019 Instruction Type:Patient Education How to access health informa tion online - Detail Indication:Smoker Start:04-Oct-2019 Instruction Type:Patient Education Patient Instructions Indication:Smoker Start:04-Oct-2019 Instruction Type:Provider Instructions for Treatment How to access health informa tion online Indication:Smoker Start:06-Sep-2019 Instruction Type:Patient Education How to access health informa tion online - Detail Indication:Smoker Start:06-Sep-2019 Instruction Type:Patient Education Patient Instructions Indication:Smoker Start:06-Sep-2019 Instruction Type:Provider Instructions for Treatment Patient Instructions Indication:Campylobacter gastroenteritis Start:09-Jan-2016 Instruction Type:Provider Instructions for Treatment How to access health informa tion online Indication:Abdominal pain, acute Start:01-Oct-2015 Instruction Type:Patient Education How to access health informa tion online - Detail Indication:Abdominal pain, acute Start:01-Oct-2015 Instruction Type:Patient Education Patient Instructions Indication:Abdominal pain, acute Start:01-Oct-2015 Instruction Type:Provider Instructions for Treatment Patient Instructions Indication:Emphysema/COPD Start:03-May-2014 Instruction Type:Provider Instructions for Treatment Patient Instructions Indication:Bipolar disorder Start:05-Apr-2014 Instruction Type:Provider Instructions for Treatment Patient Instructions Indication:Asthma Start:21-Nov-2013 Instruction Type:Provider Instructions for Treatment [facility]; [facility] Work Phone: Instructions* Name Dates Details How to Access Health Informa tion Online using Patient Portal and [employer] Apps Indication:Smoker Start:11-Feb-2021 Instruction Type:Patient Education Patient Instructions Indication:Smoker Start:11-Feb-2021 Instruction Type:Provider Instructions for Treatment Patient Instructions Indication:Smoker Start:18-Dec-2020 Instruction Type:Provider Instructions for Treatment How to Access Health Informa tion Online using Patient Portal and [employer] Apps Indication:Smoker Start:18-Dec-2020 Instruction Type:Patient Education Patient Instructions Indication:Vitamin D deficiency Start:06-Nov-2020 Instruction Type:Provider Instructions for Treatment How to Access Health Informa tion Online using Patient Portal and [employer] Apps Indication:BMI 21.0-21.9, adult Start:06-Nov-2020 Instruction Type:Patient Education Patient Instructions Indication:Smoker Start:23-Oct-2020 Instruction Type:Provider Instructions for Treatment How to Access Health Informa tion Online using Patient Portal and [employer] Apps Indication:Smoker Start:23-Oct-2020 Instruction Type:Patient Education How to access health informa tion online Indication:BMI 25.0-25.9,adult Start:25-Sep-2020 Instruction Type:Patient Education How to access health informa tion online - Detail Indication:BMI 25.0-25.9,adult Start:25-Sep-2020 Instruction Type:Patient Education Patient Instructions Indication:BMI 25.0-25.9,adult Start:25-Sep-2020 Instruction Type:Provider Instructions for Treatment How to access health informa tion online Indication:Sinus complaint Start:13-Aug-2020 Instruction Type:Patient Education How to access health informa tion online - Detail Indication:Sinus complaint Start:13-Aug-2020 Instruction Type:Patient Education Patient Instructions Indication:Sinus complaint Start:13-Aug-2020 Instruction Type:Provider Instructions for Treatment How to access health informa tion online Indication:Smoker Start:06-Jul-2020 Instruction Type:Patient Education How to access health informa tion online - Detail Indication:Smoker Start:06-Jul-2020 Instruction Type:Patient Education Patient Instructions Indication:Smoker Start:06-Jul-2020 Instruction Type:Provider Instructions for Treatment How to access health informa tion online Indication:Smoker Start:02-Apr-2020 Instruction Type:Patient Education How to access health informa tion online - Detail Indication:Smoker Start:02-Apr-2020 Instruction Type:Patient Education Patient Instructions Indication:Smoker Start:02-Apr-2020 Instruction Type:Provider Instructions for Treatment How to access health informa tion online Indication:BMI 23.0-23.9, adult Start:25-Jan-2020 Instruction Type:Patient Education How to access health informa tion online - Detail Indication:BMI 23.0-23.9, adult Start:25-Jan-2020 Instruction Type:Patient Education Patient Instructions Indication:BMI 23.0-23.9, adult Start:25-Jan-2020 Instruction Type:Provider Instructions for Treatment How to access health informa tion online Indication:Smoker Start:11-Jan-2020 Instruction Type:Patient Education How to access health informa tion online - Detail Indication:Smoker Start:11-Jan-2020 Instruction Type:Patient Education Patient Instructions Indication:Smoker Start:11-Jan-2020 Instruction Type:Provider Instructions for Treatment How to access health informa tion online Indication:Smoker Start:28-Dec-2019 Instruction Type:Patient Education How to access health informa tion online - Detail Indication:Smoker Start:28-Dec-2019 Instruction Type:Patient Education Patient Instructions Indication:Smoker Start:28-Dec-2019 Instruction Type:Provider Instructions for Treatment How to access health informa tion online Indication:Smoker Start:04-Oct-2019 Instruction Type:Patient Education How to access health informa tion online - Detail Indication:Smoker Start:04-Oct-2019 Instruction Type:Patient Education Patient Instructions Indication:Smoker Start:04-Oct-2019 Instruction Type:Provider Instructions for Treatment How to access health informa tion online Indication:Smoker Start:06-Sep-2019 Instruction Type:Patient Education How to access health informa tion online - Detail Indication:Smoker Start:06-Sep-2019 Instruction Type:Patient Education Patient Instructions Indication:Smoker Start:06-Sep-2019 Instruction Type:Provider Instructions for Treatment Patient Instructions Indication:Campylobacter gastroenteritis Start:09-Jan-2016 Instruction Type:Provider Instructions for Treatment How to access health informa tion online Indication:Abdominal pain, acute Start:01-Oct-2015 Instruction Type:Patient Education How to access health informa tion online - Detail Indication:Abdominal pain, acute Start:01-Oct-2015 Instruction Type:Patient Education Patient Instructions Indication:Abdominal pain, acute Start:01-Oct-2015 Instruction Type:Provider Instructions for Treatment Patient Instructions Indication:Emphysema/COPD Start:03-May-2014 Instruction Type:Provider Instructions for Treatment Patient Instructions Indication:Bipolar disorder Start:05-Apr-2014 Instruction Type:Provider Instructions for Treatment Patient Instructions Indication:Asthma Start:21-Nov-2013 Instruction Type:Provider Instructions for Treatment [facility]; [facility] Work Phone: Instructions* Name Dates Details Patient Instructions Indication:Smoker Start:20-Mar-2021 Instruction Type:Provider Instructions for Treatment How to Access Health Informa tion Online using Patient Portal and [employer] Apps Indication:Smoker Start:20-Mar-2021 Instruction Type:Patient Education How to Access Health Informa tion Online using Patient Portal and [employer] Apps Indication:Smoker Start:11-Feb-2021 Instruction Type:Patient Education Patient Instructions Indication:Smoker Start:11-Feb-2021 Instruction Type:Provider Instructions for Treatment Patient Instructions Indication:Smoker Start:18-Dec-2020 Instruction Type:Provider Instructions for Treatment How to Access Health Informa tion Online using Patient Portal and [employer] Apps Indication:Smoker Start:18-Dec-2020 Instruction Type:Patient Education Patient Instructions Indication:Vitamin D deficiency Start:06-Nov-2020 Instruction Type:Provider Instructions for Treatment How to Access Health Informa tion Online using Patient Portal and [employer] Apps Indication:BMI 21.0-21.9, adult Start:06-Nov-2020 Instruction Type:Patient Education Patient Instructions Indication:Smoker Start:23-Oct-2020 Instruction Type:Provider Instructions for Treatment How to Access Health Informa tion Online using Patient Portal and [employer] Apps Indication:Smoker Start:23-Oct-2020 Instruction Type:Patient Education How to access health informa tion online Indication:BMI 25.0-25.9,adult Start:25-Sep-2020 Instruction Type:Patient Education How to access health informa tion online - Detail Indication:BMI 25.0-25.9,adult Start:25-Sep-2020 Instruction Type:Patient Education Patient Instructions Indication:BMI 25.0-25.9,adult Start:25-Sep-2020 Instruction Type:Provider Instructions for Treatment How to access health informa tion online Indication:Sinus complaint Start:13-Aug-2020 Instruction Type:Patient Education How to access health informa tion online - Detail Indication:Sinus complaint Start:13-Aug-2020 Instruction Type:Patient Education Patient Instructions Indication:Sinus complaint Start:13-Aug-2020 Instruction Type:Provider Instructions for Treatment How to access health informa tion online Indication:Smoker Start:06-Jul-2020 Instruction Type:Patient Education How to access health informa tion online - Detail Indication:Smoker Start:06-Jul-2020 Instruction Type:Patient Education Patient Instructions Indication:Smoker Start:06-Jul-2020 Instruction Type:Provider Instructions for Treatment How to access health informa tion online Indication:Smoker Start:02-Apr-2020 Instruction Type:Patient Education How to access health informa tion online - Detail Indication:Smoker Start:02-Apr-2020 Instruction Type:Patient Education Patient Instructions Indication:Smoker Start:02-Apr-2020 Instruction Type:Provider Instructions for Treatment How to access health informa tion online Indication:BMI 23.0-23.9, adult Start:25-Jan-2020 Instruction Type:Patient Education How to access health informa tion online - Detail Indication:BMI 23.0-23.9, adult Start:25-Jan-2020 Instruction Type:Patient Education Patient Instructions Indication:BMI 23.0-23.9, adult Start:25-Jan-2020 Instruction Type:Provider Instructions for Treatment How to access health informa tion online Indication:Smoker Start:11-Jan-2020 Instruction Type:Patient Education How to access health informa tion online - Detail Indication:Smoker Start:11-Jan-2020 Instruction Type:Patient Education Patient Instructions Indication:Smoker Start:11-Jan-2020 Instruction Type:Provider Instructions for Treatment How to access health informa tion online Indication:Smoker Start:28-Dec-2019 Instruction Type:Patient Education How to access health informa tion online - Detail Indication:Smoker Start:28-Dec-2019 Instruction Type:Patient Education Patient Instructions Indication:Smoker Start:28-Dec-2019 Instruction Type:Provider Instructions for Treatment How to access health informa tion online Indication:Smoker Start:04-Oct-2019 Instruction Type:Patient Education How to access health informa tion online - Detail Indication:Smoker Start:04-Oct-2019 Instruction Type:Patient Education Patient Instructions Indication:Smoker Start:04-Oct-2019 Instruction Type:Provider Instructions for Treatment How to access health informa tion online Indication:Smoker Start:06-Sep-2019 Instruction Type:Patient Education How to access health informa tion online - Detail Indication:Smoker Start:06-Sep-2019 Instruction Type:Patient Education Patient Instructions Indication:Smoker Start:06-Sep-2019 Instruction Type:Provider Instructions for Treatment Patient Instructions Indication:Campylobacter gastroenteritis Start:09-Jan-2016 Instruction Type:Provider Instructions for Treatment How to access health informa tion online Indication:Abdominal pain, acute Start:01-Oct-2015 Instruction Type:Patient Education How to access health informa tion online - Detail Indication:Abdominal pain, acute Start:01-Oct-2015 Instruction Type:Patient Education Patient Instructions Indication:Abdominal pain, acute Start:01-Oct-2015 Instruction Type:Provider Instructions for Treatment Patient Instructions Indication:Emphysema/COPD Start:03-May-2014 Instruction Type:Provider Instructions for Treatment Patient Instructions Indication:Bipolar disorder Start:05-Apr-2014 Instruction Type:Provider Instructions for Treatment Patient Instructions Indication:Asthma Start:21-Nov-2013 Instruction Type:Provider Instructions for Treatment [facility]; [facility] Work Phone: Instructions* Name Dates Details Patient Instructions Indication:Smoker Start:20-Mar-2021 Instruction Type:Provider Instructions for Treatment How to Access Health Informa tion Online using Patient Portal and [employer] Indication:Smoker Start:20-Mar-2021 Instruction Type:Patient Education How to Access Health Informa tion Online using Patient Portal and [employer] Apps Indication:Smoker Start:11-Feb-2021 Instruction Type:Patient Education Patient Instructions Indication:Smoker Start:11-Feb-2021 Instruction Type:Provider Instructions for Treatment Patient Instructions Indication:Smoker Start:18-Dec-2020 Instruction Type:Provider Instructions for Treatment How to Access Health Informa tion Online using Patient Portal and [employer] Apps Indication:Smoker Start:18-Dec-2020 Instruction Type:Patient Education Patient Instructions Indication:Vitamin D deficiency Start:06-Nov-2020 Instruction Type:Provider Instructions for Treatment How to Access Health Informa tion Online using Patient Portal and [employer] Apps Indication:BMI 21.0-21.9, adult Start:06-Nov-2020 Instruction Type:Patient Education Patient Instructions Indication:Smoker Start:23-Oct-2020 Instruction Type:Provider Instructions for Treatment How to Access Health Informa tion Online using Patient Portal and [employer] Apps Indication:Smoker Start:23-Oct-2020 Instruction Type:Patient Education How to access health informa tion online Indication:BMI 25.0-25.9,adult Start:25-Sep-2020 Instruction Type:Patient Education How to access health informa tion online - Detail Indication:BMI 25.0-25.9,adult Start:25-Sep-2020 Instruction Type:Patient Education Patient Instructions Indication:BMI 25.0-25.9,adult Start:25-Sep-2020 Instruction Type:Provider Instructions for Treatment How to access health informa tion online Indication:Sinus complaint Start:13-Aug-2020 Instruction Type:Patient Education How to access health informa tion online - Detail Indication:Sinus complaint Start:13-Aug-2020 Instruction Type:Patient Education Patient Instructions Indication:Sinus complaint Start:13-Aug-2020 Instruction Type:Provider Instructions for Treatment How to access health informa tion online Indication:Smoker Start:06-Jul-2020 Instruction Type:Patient Education How to access health informa tion online - Detail Indication:Smoker Start:06-Jul-2020 Instruction Type:Patient Education Patient Instructions Indication:Smoker Start:06-Jul-2020 Instruction Type:Provider Instructions for Treatment How to access health informa tion online Indication:Smoker Start:02-Apr-2020 Instruction Type:Patient Education How to access health informa tion online - Detail Indication:Smoker Start:02-Apr-2020 Instruction Type:Patient Education Patient Instructions Indication:Smoker Start:02-Apr-2020 Instruction Type:Provider Instructions for Treatment How to access health informa tion online Indication:BMI 23.0-23.9, adult Start:25-Jan-2020 Instruction Type:Patient Education How to access health informa tion online - Detail Indication:BMI 23.0-23.9, adult Start:25-Jan-2020 Instruction Type:Patient Education Patient Instructions Indication:BMI 23.0-23.9, adult Start:25-Jan-2020 Instruction Type:Provider Instructions for Treatment How to access health informa tion online Indication:Smoker Start:11-Jan-2020 Instruction Type:Patient Education How to access health informa tion online - Detail Indication:Smoker Start:11-Jan-2020 Instruction Type:Patient Education Patient Instructions Indication:Smoker Start:11-Jan-2020 Instruction Type:Provider Instructions for Treatment How to access health informa tion online Indication:Smoker Start:28-Dec-2019 Instruction Type:Patient Education How to access health informa tion online - Detail Indication:Smoker Start:28-Dec-2019 Instruction Type:Patient Education Patient Instructions Indication:Smoker Start:28-Dec-2019 Instruction Type:Provider Instructions for Treatment How to access health informa tion online Indication:Smoker Start:04-Oct-2019 Instruction Type:Patient Education How to access health informa tion online - Detail Indication:Smoker Start:04-Oct-2019 Instruction Type:Patient Education Patient Instructions Indication:Smoker Start:04-Oct-2019 Instruction Type:Provider Instructions for Treatment How to access health informa tion online Indication:Smoker Start:06-Sep-2019 Instruction Type:Patient Education How to access health informa tion online - Detail Indication:Smoker Start:06-Sep-2019 Instruction Type:Patient Education Patient Instructions Indication:Smoker Start:06-Sep-2019 Instruction Type:Provider Instructions for Treatment Patient Instructions Indication:Campylobacter gastroenteritis Start:09-Jan-2016 Instruction Type:Provider Instructions for Treatment How to access health informa tion online Indication:Abdominal pain, acute Start:01-Oct-2015 Instruction Type:Patient Education How to access health informa tion online - Detail Indication:Abdominal pain, acute Start:01-Oct-2015 Instruction Type:Patient Education Patient Instructions Indication:Abdominal pain, acute Start:01-Oct-2015 Instruction Type:Provider Instructions for Treatment Patient Instructions Indication:Emphysema/COPD Start:03-May-2014 Instruction Type:Provider Instructions for Treatment Patient Instructions Indication:Bipolar disorder Start:05-Apr-2014 Instruction Type:Provider Instructions for Treatment Patient Instructions Indication:Asthma Start:21-Nov-2013 Instruction Type:Provider Instructions for Treatment [facility]; [facility] Work Phone: Instructions* Name Dates Details Patient Instructions Indication:Smoker Start:20-Mar-2021 Instruction Type:Provider Instructions for Treatment How to Access Health Informa tion Online using Patient Portal and [employer] Apps Indication:Smoker Start:20-Mar-2021 Instruction Type:Patient Education How to Access Health Informa tion Online using Patient Portal and [employer] Apps Indication:Smoker Start:11-Feb-2021 Instruction Type:Patient Education Patient Instructions Indication:Smoker Start:11-Feb-2021 Instruction Type:Provider Instructions for Treatment Patient Instructions Indication:Smoker Start:18-Dec-2020 Instruction Type:Provider Instructions for Treatment How to Access Health Informa tion Online using Patient Portal and [employer] Indication:Smoker Start:18-Dec-2020 Instruction Type:Patient Education Patient Instructions Indication:Vitamin D deficiency Start:06-Nov-2020 Instruction Type:Provider Instructions for Treatment How to Access Health Informa tion Online using Patient Portal and [employer] Apps Indication:BMI 21.0-21.9, adult Start:06-Nov-2020 Instruction Type:Patient Education Patient Instructions Indication:Smoker Start:23-Oct-2020 Instruction Type:Provider Instructions for Treatment How to Access Health Informa tion Online using Patient Portal and [employer] Indication:Smoker Start:23-Oct-2020 Instruction Type:Patient Education How to access health informa tion online Indication:BMI 25.0-25.9,adult Start:25-Sep-2020 Instruction Type:Patient Education How to access health informa tion online - Detail Indication:BMI 25.0-25.9,adult Start:25-Sep-2020 Instruction Type:Patient Education Patient Instructions Indication:BMI 25.0-25.9,adult Start:25-Sep-2020 Instruction Type:Provider Instructions for Treatment How to access health informa tion online Indication:Sinus complaint Start:13-Aug-2020 Instruction Type:Patient Education How to access health informa tion online - Detail Indication:Sinus complaint Start:13-Aug-2020 Instruction Type:Patient Education Patient Instructions Indication:Sinus complaint Start:13-Aug-2020 Instruction Type:Provider Instructions for Treatment How to access health informa tion online Indication:Smoker Start:06-Jul-2020 Instruction Type:Patient Education How to access health informa tion online - Detail Indication:Smoker Start:06-Jul-2020 Instruction Type:Patient Education Patient Instructions Indication:Smoker Start:06-Jul-2020 Instruction Type:Provider Instructions for Treatment How to access health informa tion online Indication:Smoker Start:02-Apr-2020 Instruction Type:Patient Education How to access health informa tion online - Detail Indication:Smoker Start:02-Apr-2020 Instruction Type:Patient Education Patient Instructions Indication:Smoker Start:02-Apr-2020 Instruction Type:Provider Instructions for Treatment How to access health informa tion online Indication:BMI 23.0-23.9, adult Start:25-Jan-2020 Instruction Type:Patient Education How to access health informa tion online - Detail Indication:BMI 23.0-23.9, adult Start:25-Jan-2020 Instruction Type:Patient Education Patient Instructions Indication:BMI 23.0-23.9, adult Start:25-Jan-2020 Instruction Type:Provider Instructions for Treatment How to access health informa tion online Indication:Smoker Start:11-Jan-2020 Instruction Type:Patient Education How to access health informa tion online - Detail Indication:Smoker Start:11-Jan-2020 Instruction Type:Patient Education Patient Instructions Indication:Smoker Start:11-Jan-2020 Instruction Type:Provider Instructions for Treatment How to access health informa tion online Indication:Smoker Start:28-Dec-2019 Instruction Type:Patient Education How to access health informa tion online - Detail Indication:Smoker Start:28-Dec-2019 Instruction Type:Patient Education Patient Instructions Indication:Smoker Start:28-Dec-2019 Instruction Type:Provider Instructions for Treatment How to access health informa tion online Indication:Smoker Start:04-Oct-2019 Instruction Type:Patient Education How to access health informa tion online - Detail Indication:Smoker Start:04-Oct-2019 Instruction Type:Patient Education Patient Instructions Indication:Smoker Start:04-Oct-2019 Instruction Type:Provider Instructions for Treatment How to access health informa tion online Indication:Smoker Start:06-Sep-2019 Instruction Type:Patient Education How to access health informa tion online - Detail Indication:Smoker Start:06-Sep-2019 Instruction Type:Patient Education Patient Instructions Indication:Smoker Start:06-Sep-2019 Instruction Type:Provider Instructions for Treatment Patient Instructions Indication:Campylobacter gastroenteritis Start:09-Jan-2016 Instruction Type:Provider Instructions for Treatment How to access health informa tion online Indication:Abdominal pain, acute Start:01-Oct-2015 Instruction Type:Patient Education How to access health informa tion online - Detail Indication:Abdominal pain, acute Start:01-Oct-2015 Instruction Type:Patient Education Patient Instructions Indication:Abdominal pain, acute Start:01-Oct-2015 Instruction Type:Provider Instructions for Treatment Patient Instructions Indication:Emphysema/COPD Start:03-May-2014 Instruction Type:Provider Instructions for Treatment Patient Instructions Indication:Bipolar disorder Start:05-Apr-2014 Instruction Type:Provider Instructions for Treatment Patient Instructions Indication:Asthma Start:21-Nov-2013 Instruction Type:Provider Instructions for Treatment [facility]; [facility] Work Phone: Instructions* Name Dates Details Patient Instructions Indication:Smoker Start:20-Mar-2021 Instruction Type:Provider Instructions for Treatment How to Access Health Informa tion Online using Patient Portal and [employer] Indication:Smoker Start:20-Mar-2021 Instruction Type:Patient Education How to Access Health Informa tion Online using Patient Portal and [employer] Apps Indication:Smoker Start:11-Feb-2021 Instruction Type:Patient Education Patient Instructions Indication:Smoker Start:11-Feb-2021 Instruction Type:Provider Instructions for Treatment Patient Instructions Indication:Smoker Start:18-Dec-2020 Instruction Type:Provider Instructions for Treatment How to Access Health Informa tion Online using Patient Portal and [employer] Indication:Smoker Start:18-Dec-2020 Instruction Type:Patient Education Patient Instructions Indication:Vitamin D deficiency Start:06-Nov-2020 Instruction Type:Provider Instructions for Treatment How to Access Health Informa tion Online using Patient Portal and [employer] Apps Indication:BMI 21.0-21.9, adult Start:06-Nov-2020 Instruction Type:Patient Education Patient Instructions Indication:Smoker Start:23-Oct-2020 Instruction Type:Provider Instructions for Treatment How to Access Health Informa tion Online using Patient Portal and [employer] Apps Indication:Smoker Start:23-Oct-2020 Instruction Type:Patient Education How to access health informa tion online Indication:BMI 25.0-25.9,adult Start:25-Sep-2020 Instruction Type:Patient Education How to access health informa tion online - Detail Indication:BMI 25.0-25.9,adult Start:25-Sep-2020 Instruction Type:Patient Education Patient Instructions Indication:BMI 25.0-25.9,adult Start:25-Sep-2020 Instruction Type:Provider Instructions for Treatment How to access health informa tion online Indication:Sinus complaint Start:13-Aug-2020 Instruction Type:Patient Education How to access health informa tion online - Detail Indication:Sinus complaint Start:13-Aug-2020 Instruction Type:Patient Education Patient Instructions Indication:Sinus complaint Start:13-Aug-2020 Instruction Type:Provider Instructions for Treatment How to access health informa tion online Indication:Smoker Start:06-Jul-2020 Instruction Type:Patient Education How to access health informa tion online - Detail Indication:Smoker Start:06-Jul-2020 Instruction Type:Patient Education Patient Instructions Indication:Smoker Start:06-Jul-2020 Instruction Type:Provider Instructions for Treatment How to access health informa tion online Indication:Smoker Start:02-Apr-2020 Instruction Type:Patient Education How to access health informa tion online - Detail Indication:Smoker Start:02-Apr-2020 Instruction Type:Patient Education Patient Instructions Indication:Smoker Start:02-Apr-2020 Instruction Type:Provider Instructions for Treatment How to access health informa tion online Indication:BMI 23.0-23.9, adult Start:25-Jan-2020 Instruction Type:Patient Education How to access health informa tion online - Detail Indication:BMI 23.0-23.9, adult Start:25-Jan-2020 Instruction Type:Patient Education Patient Instructions Indication:BMI 23.0-23.9, adult Start:25-Jan-2020 Instruction Type:Provider Instructions for Treatment How to access health informa tion online Indication:Smoker Start:11-Jan-2020 Instruction Type:Patient Education How to access health informa tion online - Detail Indication:Smoker Start:11-Jan-2020 Instruction Type:Patient Education Patient Instructions Indication:Smoker Start:11-Jan-2020 Instruction Type:Provider Instructions for Treatment How to access health informa tion online Indication:Smoker Start:28-Dec-2019 Instruction Type:Patient Education How to access health informa tion online - Detail Indication:Smoker Start:28-Dec-2019 Instruction Type:Patient Education Patient Instructions Indication:Smoker Start:28-Dec-2019 Instruction Type:Provider Instructions for Treatment How to access health informa tion online Indication:Smoker Start:04-Oct-2019 Instruction Type:Patient Education How to access health informa tion online - Detail Indication:Smoker Start:04-Oct-2019 Instruction Type:Patient Education Patient Instructions Indication:Smoker Start:04-Oct-2019 Instruction Type:Provider Instructions for Treatment How to access health informa tion online Indication:Smoker Start:06-Sep-2019 Instruction Type:Patient Education How to access health informa tion online - Detail Indication:Smoker Start:06-Sep-2019 Instruction Type:Patient Education Patient Instructions Indication:Smoker Start:06-Sep-2019 Instruction Type:Provider Instructions for Treatment Patient Instructions Indication:Campylobacter gastroenteritis Start:09-Jan-2016 Instruction Type:Provider Instructions for Treatment How to access health informa tion online Indication:Abdominal pain, acute Start:01-Oct-2015 Instruction Type:Patient Education How to access health informa tion online - Detail Indication:Abdominal pain, acute Start:01-Oct-2015 Instruction Type:Patient Education Patient Instructions Indication:Abdominal pain, acute Start:01-Oct-2015 Instruction Type:Provider Instructions for Treatment Patient Instructions Indication:Emphysema/COPD Start:03-May-2014 Instruction Type:Provider Instructions for Treatment Patient Instructions Indication:Bipolar disorder Start:05-Apr-2014 Instruction Type:Provider Instructions for Treatment Patient Instructions Indication:Asthma Start:21-Nov-2013 Instruction Type:Provider Instructions for Treatment [facility]; [facility] Work Phone: Instructions* Name Dates Details Patient Instructions Indication:Smoker Start:20-Mar-2021 Instruction Type:Provider Instructions for Treatment How to Access Health Informa tion Online using Patient Portal and [employer] Indication:Smoker Start:20-Mar-2021 Instruction Type:Patient Education How to Access Health Informa tion Online using Patient Portal and [employer] Apps Indication:Smoker Start:11-Feb-2021 Instruction Type:Patient Education Patient Instructions Indication:Smoker Start:11-Feb-2021 Instruction Type:Provider Instructions for Treatment Patient Instructions Indication:Smoker Start:18-Dec-2020 Instruction Type:Provider Instructions for Treatment How to Access Health Informa tion Online using Patient Portal and [employer] Indication:Smoker Start:18-Dec-2020 Instruction Type:Patient Education Patient Instructions Indication:Vitamin D deficiency Start:06-Nov-2020 Instruction Type:Provider Instructions for Treatment How to Access Health Informa tion Online using Patient Portal and [employer] Apps Indication:BMI 21.0-21.9, adult Start:06-Nov-2020 Instruction Type:Patient Education Patient Instructions Indication:Smoker Start:23-Oct-2020 Instruction Type:Provider Instructions for Treatment How to Access Health Informa tion Online using Patient Portal and [employer] Indication:Smoker Start:23-Oct-2020 Instruction Type:Patient Education How to access health informa tion online Indication:BMI 25.0-25.9,adult Start:25-Sep-2020 Instruction Type:Patient Education How to access health informa tion online - Detail Indication:BMI 25.0-25.9,adult Start:25-Sep-2020 Instruction Type:Patient Education Patient Instructions Indication:BMI 25.0-25.9,adult Start:25-Sep-2020 Instruction Type:Provider Instructions for Treatment How to access health informa tion online Indication:Sinus complaint Start:13-Aug-2020 Instruction Type:Patient Education How to access health informa tion online - Detail Indication:Sinus complaint Start:13-Aug-2020 Instruction Type:Patient Education Patient Instructions Indication:Sinus complaint Start:13-Aug-2020 Instruction Type:Provider Instructions for Treatment How to access health informa tion online Indication:Smoker Start:06-Jul-2020 Instruction Type:Patient Education How to access health informa tion online - Detail Indication:Smoker Start:06-Jul-2020 Instruction Type:Patient Education Patient Instructions Indication:Smoker Start:06-Jul-2020 Instruction Type:Provider Instructions for Treatment How to access health informa tion online Indication:Smoker Start:02-Apr-2020 Instruction Type:Patient Education How to access health informa tion online - Detail Indication:Smoker Start:02-Apr-2020 Instruction Type:Patient Education Patient Instructions Indication:Smoker Start:02-Apr-2020 Instruction Type:Provider Instructions for Treatment How to access health informa tion online Indication:BMI 23.0-23.9, adult Start:25-Jan-2020 Instruction Type:Patient Education How to access health informa tion online - Detail Indication:BMI 23.0-23.9, adult Start:25-Jan-2020 Instruction Type:Patient Education Patient Instructions Indication:BMI 23.0-23.9, adult Start:25-Jan-2020 Instruction Type:Provider Instructions for Treatment How to access health informa tion online Indication:Smoker Start:11-Jan-2020 Instruction Type:Patient Education How to access health informa tion online - Detail Indication:Smoker Start:11-Jan-2020 Instruction Type:Patient Education Patient Instructions Indication:Smoker Start:11-Jan-2020 Instruction Type:Provider Instructions for Treatment How to access health informa tion online Indication:Smoker Start:28-Dec-2019 Instruction Type:Patient Education How to access health informa tion online - Detail Indication:Smoker Start:28-Dec-2019 Instruction Type:Patient Education Patient Instructions Indication:Smoker Start:28-Dec-2019 Instruction Type:Provider Instructions for Treatment How to access health informa tion online Indication:Smoker Start:04-Oct-2019 Instruction Type:Patient Education How to access health informa tion online - Detail Indication:Smoker Start:04-Oct-2019 Instruction Type:Patient Education Patient Instructions Indication:Smoker Start:04-Oct-2019 Instruction Type:Provider Instructions for Treatment How to access health informa tion online Indication:Smoker Start:06-Sep-2019 Instruction Type:Patient Education How to access health informa tion online - Detail Indication:Smoker Start:06-Sep-2019 Instruction Type:Patient Education Patient Instructions Indication:Smoker Start:06-Sep-2019 Instruction Type:Provider Instructions for Treatment Patient Instructions Indication:Campylobacter gastroenteritis Start:09-Jan-2016 Instruction Type:Provider Instructions for Treatment How to access health informa tion online Indication:Abdominal pain, acute Start:01-Oct-2015 Instruction Type:Patient Education How to access health informa tion online - Detail Indication:Abdominal pain, acute Start:01-Oct-2015 Instruction Type:Patient Education Patient Instructions Indication:Abdominal pain, acute Start:01-Oct-2015 Instruction Type:Provider Instructions for Treatment Patient Instructions Indication:Emphysema/COPD Start:03-May-2014 Instruction Type:Provider Instructions for Treatment Patient Instructions Indication:Bipolar disorder Start:05-Apr-2014 Instruction Type:Provider Instructions for Treatment Patient Instructions Indication:Asthma Start:21-Nov-2013 Instruction Type:Provider Instructions for Treatment [facility]; [facility] Work Phone: Instructions* Name Dates Details How to Access Health Informa tion Online using Patient Portal and [employer] Indication:Smoker Start:18-Apr-2021 Instruction Type:Patient Education Patient Instructions Indication:Smoker Start:18-Apr-2021 Instruction Type:Provider Instructions for Treatment Patient Instructions Indication:Smoker Start:20-Mar-2021 Instruction Type:Provider Instructions for Treatment How to Access Health Informa tion Online using Patient Portal and [employer] Indication:Smoker Start:20-Mar-2021 Instruction Type:Patient Education How to Access Health Informa tion Online using Patient Portal and [employer] Indication:Smoker Start:11-Feb-2021 Instruction Type:Patient Education Patient Instructions Indication:Smoker Start:11-Feb-2021 Instruction Type:Provider Instructions for Treatment Patient Instructions Indication:Smoker Start:18-Dec-2020 Instruction Type:Provider Instructions for Treatment How to Access Health Informa tion Online using Patient Portal and [employer] Indication:Smoker Start:18-Dec-2020 Instruction Type:Patient Education Patient Instructions Indication:Vitamin D deficiency Start:06-Nov-2020 Instruction Type:Provider Instructions for Treatment How to Access Health Informa tion Online using Patient Portal and [employer] Apps Indication:BMI 21.0-21.9, adult Start:06-Nov-2020 Instruction Type:Patient Education Patient Instructions Indication:Smoker Start:23-Oct-2020 Instruction Type:Provider Instructions for Treatment How to Access Health Informa tion Online using Patient Portal and [employer] Indication:Smoker Start:23-Oct-2020 Instruction Type:Patient Education How to access health informa tion online Indication:BMI 25.0-25.9,adult Start:25-Sep-2020 Instruction Type:Patient Education How to access health informa tion online - Detail Indication:BMI 25.0-25.9,adult Start:25-Sep-2020 Instruction Type:Patient Education Patient Instructions Indication:BMI 25.0-25.9,adult Start:25-Sep-2020 Instruction Type:Provider Instructions for Treatment How to access health informa tion online Indication:Sinus complaint Start:13-Aug-2020 Instruction Type:Patient Education How to access health informa tion online - Detail Indication:Sinus complaint Start:13-Aug-2020 Instruction Type:Patient Education Patient Instructions Indication:Sinus complaint Start:13-Aug-2020 Instruction Type:Provider Instructions for Treatment How to access health informa tion online Indication:Smoker Start:06-Jul-2020 Instruction Type:Patient Education How to access health informa tion online - Detail Indication:Smoker Start:06-Jul-2020 Instruction Type:Patient Education Patient Instructions Indication:Smoker Start:06-Jul-2020 Instruction Type:Provider Instructions for Treatment How to access health informa tion online Indication:Smoker Start:02-Apr-2020 Instruction Type:Patient Education How to access health informa tion online - Detail Indication:Smoker Start:02-Apr-2020 Instruction Type:Patient Education Patient Instructions Indication:Smoker Start:02-Apr-2020 Instruction Type:Provider Instructions for Treatment How to access health informa tion online Indication:BMI 23.0-23.9, adult Start:25-Jan-2020 Instruction Type:Patient Education How to access health informa tion online - Detail Indication:BMI 23.0-23.9, adult Start:25-Jan-2020 Instruction Type:Patient Education Patient Instructions Indication:BMI 23.0-23.9, adult Start:25-Jan-2020 Instruction Type:Provider Instructions for Treatment How to access health informa tion online Indication:Smoker Start:11-Jan-2020 Instruction Type:Patient Education How to access health informa tion online - Detail Indication:Smoker Start:11-Jan-2020 Instruction Type:Patient Education Patient Instructions Indication:Smoker Start:11-Jan-2020 Instruction Type:Provider Instructions for Treatment How to access health informa tion online Indication:Smoker Start:28-Dec-2019 Instruction Type:Patient Education How to access health informa tion online - Detail Indication:Smoker Start:28-Dec-2019 Instruction Type:Patient Education Patient Instructions Indication:Smoker Start:28-Dec-2019 Instruction Type:Provider Instructions for Treatment How to access health informa tion online Indication:Smoker Start:04-Oct-2019 Instruction Type:Patient Education How to access health informa tion online - Detail Indication:Smoker Start:04-Oct-2019 Instruction Type:Patient Education Patient Instructions Indication:Smoker Start:04-Oct-2019 Instruction Type:Provider Instructions for Treatment How to access health informa tion online Indication:Smoker Start:06-Sep-2019 Instruction Type:Patient Education How to access health informa tion online - Detail Indication:Smoker Start:06-Sep-2019 Instruction Type:Patient Education Patient Instructions Indication:Smoker Start:06-Sep-2019 Instruction Type:Provider Instructions for Treatment Patient Instructions Indication:Campylobacter gastroenteritis Start:09-Jan-2016 Instruction Type:Provider Instructions for Treatment How to access health informa tion online Indication:Abdominal pain, acute Start:01-Oct-2015 Instruction Type:Patient Education How to access health informa tion online - Detail Indication:Abdominal pain, acute Start:01-Oct-2015 Instruction Type:Patient Education Patient Instructions Indication:Abdominal pain, acute Start:01-Oct-2015 Instruction Type:Provider Instructions for Treatment Patient Instructions Indication:Emphysema/COPD Start:03-May-2014 Instruction Type:Provider Instructions for Treatment Patient Instructions Indication:Bipolar disorder Start:05-Apr-2014 Instruction Type:Provider Instructions for Treatment Patient Instructions Indication:Asthma Start:21-Nov-2013 Instruction Type:Provider Instructions for Treatment [facility]; [facility] Work Phone: Instructions* Name Dates Details How to Access Health Informa tion Online using Patient Portal and [employer] Apps Indication:Smoker Start:18-Apr-2021 Instruction Type:Patient Education Patient Instructions Indication:Smoker Start:18-Apr-2021 Instruction Type:Provider Instructions for Treatment Patient Instructions Indication:Smoker Start:20-Mar-2021 Instruction Type:Provider Instructions for Treatment How to Access Health Informa tion Online using Patient Portal and [employer] Apps Indication:Smoker Start:20-Mar-2021 Instruction Type:Patient Education How to Access Health Informa tion Online using Patient Portal and [employer] Apps Indication:Smoker Start:11-Feb-2021 Instruction Type:Patient Education Patient Instructions Indication:Smoker Start:11-Feb-2021 Instruction Type:Provider Instructions for Treatment Patient Instructions Indication:Smoker Start:18-Dec-2020 Instruction Type:Provider Instructions for Treatment How to Access Health Informa tion Online using Patient Portal and [employer] Apps Indication:Smoker Start:18-Dec-2020 Instruction Type:Patient Education Patient Instructions Indication:Vitamin D deficiency Start:06-Nov-2020 Instruction Type:Provider Instructions for Treatment How to Access Health Informa tion Online using Patient Portal and [employer] Apps Indication:BMI 21.0-21.9, adult Start:06-Nov-2020 Instruction Type:Patient Education Patient Instructions Indication:Smoker Start:23-Oct-2020 Instruction Type:Provider Instructions for Treatment How to Access Health Informa tion Online using Patient Portal and [employer] Apps Indication:Smoker Start:23-Oct-2020 Instruction Type:Patient Education How to access health informa tion online Indication:BMI 25.0-25.9,adult Start:25-Sep-2020 Instruction Type:Patient Education How to access health informa tion online - Detail Indication:BMI 25.0-25.9,adult Start:25-Sep-2020 Instruction Type:Patient Education Patient Instructions Indication:BMI 25.0-25.9,adult Start:25-Sep-2020 Instruction Type:Provider Instructions for Treatment How to access health informa tion online Indication:Sinus complaint Start:13-Aug-2020 Instruction Type:Patient Education How to access health informa tion online - Detail Indication:Sinus complaint Start:13-Aug-2020 Instruction Type:Patient Education Patient Instructions Indication:Sinus complaint Start:13-Aug-2020 Instruction Type:Provider Instructions for Treatment How to access health informa tion online Indication:Smoker Start:06-Jul-2020 Instruction Type:Patient Education How to access health informa tion online - Detail Indication:Smoker Start:06-Jul-2020 Instruction Type:Patient Education Patient Instructions Indication:Smoker Start:06-Jul-2020 Instruction Type:Provider Instructions for Treatment How to access health informa tion online Indication:Smoker Start:02-Apr-2020 Instruction Type:Patient Education How to access health informa tion online - Detail Indication:Smoker Start:02-Apr-2020 Instruction Type:Patient Education Patient Instructions Indication:Smoker Start:02-Apr-2020 Instruction Type:Provider Instructions for Treatment How to access health informa tion online Indication:BMI 23.0-23.9, adult Start:25-Jan-2020 Instruction Type:Patient Education How to access health informa tion online - Detail Indication:BMI 23.0-23.9, adult Start:25-Jan-2020 Instruction Type:Patient Education Patient Instructions Indication:BMI 23.0-23.9, adult Start:25-Jan-2020 Instruction Type:Provider Instructions for Treatment How to access health informa tion online Indication:Smoker Start:11-Jan-2020 Instruction Type:Patient Education How to access health informa tion online - Detail Indication:Smoker Start:11-Jan-2020 Instruction Type:Patient Education Patient Instructions Indication:Smoker Start:11-Jan-2020 Instruction Type:Provider Instructions for Treatment How to access health informa tion online Indication:Smoker Start:28-Dec-2019 Instruction Type:Patient Education How to access health informa tion online - Detail Indication:Smoker Start:28-Dec-2019 Instruction Type:Patient Education Patient Instructions Indication:Smoker Start:28-Dec-2019 Instruction Type:Provider Instructions for Treatment How to access health informa tion online Indication:Smoker Start:04-Oct-2019 Instruction Type:Patient Education How to access health informa tion online - Detail Indication:Smoker Start:04-Oct-2019 Instruction Type:Patient Education Patient Instructions Indication:Smoker Start:04-Oct-2019 Instruction Type:Provider Instructions for Treatment How to access health informa tion online Indication:Smoker Start:06-Sep-2019 Instruction Type:Patient Education How to access health informa tion online - Detail Indication:Smoker Start:06-Sep-2019 Instruction Type:Patient Education Patient Instructions Indication:Smoker Start:06-Sep-2019 Instruction Type:Provider Instructions for Treatment Patient Instructions Indication:Campylobacter gastroenteritis Start:09-Jan-2016 Instruction Type:Provider Instructions for Treatment How to access health informa tion online Indication:Abdominal pain, acute Start:01-Oct-2015 Instruction Type:Patient Education How to access health informa tion online - Detail Indication:Abdominal pain, acute Start:01-Oct-2015 Instruction Type:Patient Education Patient Instructions Indication:Abdominal pain, acute Start:01-Oct-2015 Instruction Type:Provider Instructions for Treatment Patient Instructions Indication:Emphysema/COPD Start:03-May-2014 Instruction Type:Provider Instructions for Treatment Patient Instructions Indication:Bipolar disorder Start:05-Apr-2014 Instruction Type:Provider Instructions for Treatment Patient Instructions Indication:Asthma Start:21-Nov-2013 Instruction Type:Provider Instructions for Treatment [facility]; [facility] Work Phone: Instructions* Name Dates Details How to Access Health Informa tion Online using Patient Portal and [employer] Apps Indication:Smoker Start:18-Apr-2021 Instruction Type:Patient Education Patient Instructions Indication:Smoker Start:18-Apr-2021 Instruction Type:Provider Instructions for Treatment Patient Instructions Indication:Smoker Start:20-Mar-2021 Instruction Type:Provider Instructions for Treatment How to Access Health Informa tion Online using Patient Portal and [employer] Apps Indication:Smoker Start:20-Mar-2021 Instruction Type:Patient Education How to Access Health Informa tion Online using Patient Portal and [employer] Apps Indication:Smoker Start:11-Feb-2021 Instruction Type:Patient Education Patient Instructions Indication:Smoker Start:11-Feb-2021 Instruction Type:Provider Instructions for Treatment Patient Instructions Indication:Smoker Start:18-Dec-2020 Instruction Type:Provider Instructions for Treatment How to Access Health Informa tion Online using Patient Portal and [employer] Apps Indication:Smoker Start:18-Dec-2020 Instruction Type:Patient Education Patient Instructions Indication:Vitamin D deficiency Start:06-Nov-2020 Instruction Type:Provider Instructions for Treatment How to Access Health Informa tion Online using Patient Portal and [employer] Apps Indication:BMI 21.0-21.9, adult Start:06-Nov-2020 Instruction Type:Patient Education Patient Instructions Indication:Smoker Start:23-Oct-2020 Instruction Type:Provider Instructions for Treatment How to Access Health Informa tion Online using Patient Portal and [employer] Apps Indication:Smoker Start:23-Oct-2020 Instruction Type:Patient Education How to access health informa tion online Indication:BMI 25.0-25.9,adult Start:25-Sep-2020 Instruction Type:Patient Education How to access health informa tion online - Detail Indication:BMI 25.0-25.9,adult Start:25-Sep-2020 Instruction Type:Patient Education Patient Instructions Indication:BMI 25.0-25.9,adult Start:25-Sep-2020 Instruction Type:Provider Instructions for Treatment How to access health informa tion online Indication:Sinus complaint Start:13-Aug-2020 Instruction Type:Patient Education How to access health informa tion online - Detail Indication:Sinus complaint Start:13-Aug-2020 Instruction Type:Patient Education Patient Instructions Indication:Sinus complaint Start:13-Aug-2020 Instruction Type:Provider Instructions for Treatment How to access health informa tion online Indication:Smoker Start:06-Jul-2020 Instruction Type:Patient Education How to access health informa tion online - Detail Indication:Smoker Start:06-Jul-2020 Instruction Type:Patient Education Patient Instructions Indication:Smoker Start:06-Jul-2020 Instruction Type:Provider Instructions for Treatment How to access health informa tion online Indication:Smoker Start:02-Apr-2020 Instruction Type:Patient Education How to access health informa tion online - Detail Indication:Smoker Start:02-Apr-2020 Instruction Type:Patient Education Patient Instructions Indication:Smoker Start:02-Apr-2020 Instruction Type:Provider Instructions for Treatment How to access health informa tion online Indication:BMI 23.0-23.9, adult Start:25-Jan-2020 Instruction Type:Patient Education How to access health informa tion online - Detail Indication:BMI 23.0-23.9, adult Start:25-Jan-2020 Instruction Type:Patient Education Patient Instructions Indication:BMI 23.0-23.9, adult Start:25-Jan-2020 Instruction Type:Provider Instructions for Treatment How to access health informa tion online Indication:Smoker Start:11-Jan-2020 Instruction Type:Patient Education How to access health informa tion online - Detail Indication:Smoker Start:11-Jan-2020 Instruction Type:Patient Education Patient Instructions Indication:Smoker Start:11-Jan-2020 Instruction Type:Provider Instructions for Treatment How to access health informa tion online Indication:Smoker Start:28-Dec-2019 Instruction Type:Patient Education How to access health informa tion online - Detail Indication:Smoker Start:28-Dec-2019 Instruction Type:Patient Education Patient Instructions Indication:Smoker Start:28-Dec-2019 Instruction Type:Provider Instructions for Treatment How to access health informa tion online Indication:Smoker Start:04-Oct-2019 Instruction Type:Patient Education How to access health informa tion online - Detail Indication:Smoker Start:04-Oct-2019 Instruction Type:Patient Education Patient Instructions Indication:Smoker Start:04-Oct-2019 Instruction Type:Provider Instructions for Treatment How to access health informa tion online Indication:Smoker Start:06-Sep-2019 Instruction Type:Patient Education How to access health informa tion online - Detail Indication:Smoker Start:06-Sep-2019 Instruction Type:Patient Education Patient Instructions Indication:Smoker Start:06-Sep-2019 Instruction Type:Provider Instructions for Treatment Patient Instructions Indication:Campylobacter gastroenteritis Start:09-Jan-2016 Instruction Type:Provider Instructions for Treatment How to access health informa tion online Indication:Abdominal pain, acute Start:01-Oct-2015 Instruction Type:Patient Education How to access health informa tion online - Detail Indication:Abdominal pain, acute Start:01-Oct-2015 Instruction Type:Patient Education Patient Instructions Indication:Abdominal pain, acute Start:01-Oct-2015 Instruction Type:Provider Instructions for Treatment Patient Instructions Indication:Emphysema/COPD Start:03-May-2014 Instruction Type:Provider Instructions for Treatment Patient Instructions Indication:Bipolar disorder Start:05-Apr-2014 Instruction Type:Provider Instructions for Treatment Patient Instructions Indication:Asthma Start:21-Nov-2013 Instruction Type:Provider Instructions for Treatment [facility]; [facility] Work Phone: Instructions* Name Dates Details Patient Instructions Indication:Smoker Start:27-Sep-2021 Instruction Type:Provider Instructions for Treatment How to Access Health Informa tion Online using Patient Portal and [employer] Apps Indication:Smoker Start:27-Sep-2021 Instruction Type:Patient Education Patient Instructions Indication:Smoker Start:26-Sep-2021 Instruction Type:Provider Instructions for Treatment How to Access Health Informa tion Online using Patient Portal and [employer] Apps Indication:Smoker Start:26-Sep-2021 Instruction Type:Patient Education Patient Instructions Indication:Body mass index [BMI] 19.9 or less, adult Start:25-Sep-2021 Instruction Type:Provider Instructions for Treatment How to Access Health Informa tion Online using Patient Portal and [employer] Apps Indication:Body mass index [BMI] 19.9 or less, adult Start:25-Sep-2021 Instruction Type:Patient Education Patient Instructions Indication:Smoker Start:23-Sep-2021 Instruction Type:Provider Instructions for Treatment How to Access Health Informa tion Online using Patient Portal and [employer] Apps Indication:Smoker Start:23-Sep-2021 Instruction Type:Patient Education Patient Instructions Indication:Smoker Start:22-Jul-2021 Instruction Type:Provider Instructions for Treatment How to Access Health Informa tion Online using Patient Portal and [employer] Apps Indication:Smoker Start:22-Jul-2021 Instruction Type:Patient Education Patient Instructions Indication:Smoker Start:21-Jun-2021 Instruction Type:Provider Instructions for Treatment How to Access Health Informa tion Online using Patient Portal and [employer] Apps Indication:Smoker Start:21-Jun-2021 Instruction Type:Patient Education Patient Instructions Indication:BMI 21.0-21.9, adult Start:31-May-2021 Instruction Type:Provider Instructions for Treatment How to Access Health Informa tion Online using Patient Portal and [employer] Apps Indication:BMI 21.0-21.9, adult Start:31-May-2021 Instruction Type:Patient Education How to Access Health Informa tion Online using Patient Portal and [employer] Apps Indication:Smoker Start:18-Apr-2021 Instruction Type:Patient Education Patient Instructions Indication:Smoker Start:18-Apr-2021 Instruction Type:Provider Instructions for Treatment Patient Instructions Indication:Smoker Start:20-Mar-2021 Instruction Type:Provider Instructions for Treatment How to Access Health Informa tion Online using Patient Portal and [employer] Apps Indication:Smoker Start:20-Mar-2021 Instruction Type:Patient Education How to Access Health Informa tion Online using Patient Portal and [employer] Apps Indication:Smoker Start:11-Feb-2021 Instruction Type:Patient Education Patient Instructions Indication:Smoker Start:11-Feb-2021 Instruction Type:Provider Instructions for Treatment Patient Instructions Indication:Smoker Start:18-Dec-2020 Instruction Type:Provider Instructions for Treatment How to Access Health Informa tion Online using Patient Portal and [employer] Apps Indication:Smoker Start:18-Dec-2020 Instruction Type:Patient Education Patient Instructions Indication:Vitamin D deficiency Start:06-Nov-2020 Instruction Type:Provider Instructions for Treatment How to Access Health Informa tion Online using Patient Portal and [employer] Apps Indication:BMI 21.0-21.9, adult Start:06-Nov-2020 Instruction Type:Patient Education Patient Instructions Indication:Smoker Start:23-Oct-2020 Instruction Type:Provider Instructions for Treatment How to Access Health Informa tion Online using Patient Portal and [employer] Apps Indication:Smoker Start:23-Oct-2020 Instruction Type:Patient Education How to access health informa tion online Indication:BMI 25.0-25.9,adult Start:25-Sep-2020 Instruction Type:Patient Education How to access health informa tion online - Detail Indication:BMI 25.0-25.9,adult Start:25-Sep-2020 Instruction Type:Patient Education Patient Instructions Indication:BMI 25.0-25.9,adult Start:25-Sep-2020 Instruction Type:Provider Instructions for Treatment How to access health informa tion online Indication:Sinus complaint Start:13-Aug-2020 Instruction Type:Patient Education How to access health informa tion online - Detail Indication:Sinus complaint Start:13-Aug-2020 Instruction Type:Patient Education Patient Instructions Indication:Sinus complaint Start:13-Aug-2020 Instruction Type:Provider Instructions for Treatment How to access health informa tion online Indication:Smoker Start:06-Jul-2020 Instruction Type:Patient Education How to access health informa tion online - Detail Indication:Smoker Start:06-Jul-2020 Instruction Type:Patient Education Patient Instructions Indication:Smoker Start:06-Jul-2020 Instruction Type:Provider Instructions for Treatment How to access health informa tion online Indication:Smoker Start:02-Apr-2020 Instruction Type:Patient Education How to access health informa tion online - Detail Indication:Smoker Start:02-Apr-2020 Instruction Type:Patient Education Patient Instructions Indication:Smoker Start:02-Apr-2020 Instruction Type:Provider Instructions for Treatment How to access health informa tion online Indication:BMI 23.0-23.9, adult Start:25-Jan-2020 Instruction Type:Patient Education How to access health informa tion online - Detail Indication:BMI 23.0-23.9, adult Start:25-Jan-2020 Instruction Type:Patient Education Patient Instructions Indication:BMI 23.0-23.9, adult Start:25-Jan-2020 Instruction Type:Provider Instructions for Treatment How to access health informa tion online Indication:Smoker Start:11-Jan-2020 Instruction Type:Patient Education How to access health informa tion online - Detail Indication:Smoker Start:11-Jan-2020 Instruction Type:Patient Education Patient Instructions Indication:Smoker Start:11-Jan-2020 Instruction Type:Provider Instructions for Treatment How to access health informa tion online Indication:Smoker Start:28-Dec-2019 Instruction Type:Patient Education How to access health informa tion online - Detail Indication:Smoker Start:28-Dec-2019 Instruction Type:Patient Education Patient Instructions Indication:Smoker Start:28-Dec-2019 Instruction Type:Provider Instructions for Treatment How to access health informa tion online Indication:Smoker Start:04-Oct-2019 Instruction Type:Patient Education How to access health informa tion online - Detail Indication:Smoker Start:04-Oct-2019 Instruction Type:Patient Education Patient Instructions Indication:Smoker Start:04-Oct-2019 Instruction Type:Provider Instructions for Treatment How to access health informa tion online Indication:Smoker Start:06-Sep-2019 Instruction Type:Patient Education How to access health informa tion online - Detail Indication:Smoker Start:06-Sep-2019 Instruction Type:Patient Education Patient Instructions Indication:Smoker Start:06-Sep-2019 Instruction Type:Provider Instructions for Treatment Patient Instructions Indication:Campylobacter gastroenteritis Start:09-Jan-2016 Instruction Type:Provider Instructions for Treatment How to access health informa tion online Indication:Abdominal pain, acute Start:01-Oct-2015 Instruction Type:Patient Education How to access health informa tion online - Detail Indication:Abdominal pain, acute Start:01-Oct-2015 Instruction Type:Patient Education Patient Instructions Indication:Abdominal pain, acute Start:01-Oct-2015 Instruction Type:Provider Instructions for Treatment Patient Instructions Indication:Emphysema/COPD Start:03-May-2014 Instruction Type:Provider Instructions for Treatment Patient Instructions Indication:Bipolar disorder Start:05-Apr-2014 Instruction Type:Provider Instructions for Treatment Patient Instructions Indication:Asthma Start:21-Nov-2013 Instruction Type:Provider Instructions for Treatment [facility]; [facility] Work Phone: Instructions* Name Dates Details How to access health informa tion online Indication:Smoker Start:02-Apr-2020 Instruction Type:Patient Education How to access health informa tion online - Detail Indication:Smoker Start:02-Apr-2020 Instruction Type:Patient Education Patient Instructions Indication:Smoker Start:02-Apr-2020 Instruction Type:Provider Instructions for Treatment How to access health informa tion online Indication:BMI 23.0-23.9, adult Start:25-Jan-2020 Instruction Type:Patient Education How to access health informa tion online - Detail Indication:BMI 23.0-23.9, adult Start:25-Jan-2020 Instruction Type:Patient Education Patient Instructions Indication:BMI 23.0-23.9, adult Start:25-Jan-2020 Instruction Type:Provider Instructions for Treatment How to access health informa tion online Indication:Smoker Start:11-Jan-2020 Instruction Type:Patient Education How to access health informa tion online - Detail Indication:Smoker Start:11-Jan-2020 Instruction Type:Patient Education Patient Instructions Indication:Smoker Start:11-Jan-2020 Instruction Type:Provider Instructions for Treatment How to access health informa tion online Indication:Smoker Start:28-Dec-2019 Instruction Type:Patient Education How to access health informa tion online - Detail Indication:Smoker Start:28-Dec-2019 Instruction Type:Patient Education Patient Instructions Indication:Smoker Start:28-Dec-2019 Instruction Type:Provider Instructions for Treatment How to access health informa tion online Indication:Smoker Start:04-Oct-2019 Instruction Type:Patient Education How to access health informa tion online - Detail Indication:Smoker Start:04-Oct-2019 Instruction Type:Patient Education Patient Instructions Indication:Smoker Start:04-Oct-2019 Instruction Type:Provider Instructions for Treatment How to access health informa tion online Indication:Smoker Start:06-Sep-2019 Instruction Type:Patient Education How to access health informa tion online - Detail Indication:Smoker Start:06-Sep-2019 Instruction Type:Patient Education Patient Instructions Indication:Smoker Start:06-Sep-2019 Instruction Type:Provider Instructions for Treatment Patient Instructions Indication:Campylobacter gastroenteritis Start:09-Jan-2016 Instruction Type:Provider Instructions for Treatment How to access health informa tion online Indication:Abdominal pain, acute Start:01-Oct-2015 Instruction Type:Patient Education How to access health informa tion online - Detail Indication:Abdominal pain, acute Start:01-Oct-2015 Instruction Type:Patient Education Patient Instructions Indication:Abdominal pain, acute Start:01-Oct-2015 Instruction Type:Provider Instructions for Treatment Patient Instructions Indication:Emphysema/COPD Start:03-May-2014 Instruction Type:Provider Instructions for Treatment Patient Instructions Indication:Bipolar disorder Start:05-Apr-2014 Instruction Type:Provider Instructions for Treatment Patient Instructions Indication:Asthma Start:21-Nov-2013 Instruction Type:Provider Instructions for Treatment [facility] Work Phone: Instructions* Name Dates Details Patient Instructions Indication:Smoker Start:03-Feb-2022 Instruction Type:Provider Instructions for Treatment How to Access Health Informa tion Online using Patient Portal and [employer] Apps Indication:Smoker Start:03-Feb-2022 Instruction Type:Patient Education Patient Instructions Indication:Smoker Start:27-Sep-2021 Instruction Type:Provider Instructions for Treatment How to Access Health Informa tion Online using Patient Portal and [employer] Apps Indication:Smoker Start:27-Sep-2021 Instruction Type:Patient Education Patient Instructions Indication:Smoker Start:26-Sep-2021 Instruction Type:Provider Instructions for Treatment How to Access Health Informa tion Online using Patient Portal and [employer] Apps Indication:Smoker Start:26-Sep-2021 Instruction Type:Patient Education Patient Instructions Indication:Body mass index [BMI] 19.9 or less, adult Start:25-Sep-2021 Instruction Type:Provider Instructions for Treatment How to Access Health Informa tion Online using Patient Portal and [employer] Apps Indication:Body mass index [BMI] 19.9 or less, adult Start:25-Sep-2021 Instruction Type:Patient Education Patient Instructions Indication:Smoker Start:23-Sep-2021 Instruction Type:Provider Instructions for Treatment How to Access Health Informa tion Online using Patient Portal and [employer] Apps Indication:Smoker Start:23-Sep-2021 Instruction Type:Patient Education Patient Instructions Indication:Smoker Start:22-Jul-2021 Instruction Type:Provider Instructions for Treatment How to Access Health Informa tion Online using Patient Portal and [employer] Apps Indication:Smoker Start:22-Jul-2021 Instruction Type:Patient Education Patient Instructions Indication:Smoker Start:21-Jun-2021 Instruction Type:Provider Instructions for Treatment How to Access Health Informa tion Online using Patient Portal and [employer] Apps Indication:Smoker Start:21-Jun-2021 Instruction Type:Patient Education Patient Instructions Indication:BMI 21.0-21.9, adult Start:31-May-2021 Instruction Type:Provider Instructions for Treatment How to Access Health Informa tion Online using Patient Portal and [employer] Apps Indication:BMI 21.0-21.9, adult Start:31-May-2021 Instruction Type:Patient Education How to Access Health Informa tion Online using Patient Portal and [employer] Apps Indication:Smoker Start:18-Apr-2021 Instruction Type:Patient Education Patient Instructions Indication:Smoker Start:18-Apr-2021 Instruction Type:Provider Instructions for Treatment Patient Instructions Indication:Smoker Start:20-Mar-2021 Instruction Type:Provider Instructions for Treatment How to Access Health Informa tion Online using Patient Portal and [employer] Apps Indication:Smoker Start:20-Mar-2021 Instruction Type:Patient Education How to Access Health Informa tion Online using Patient Portal and [employer] Apps Indication:Smoker Start:11-Feb-2021 Instruction Type:Patient Education Patient Instructions Indication:Smoker Start:11-Feb-2021 Instruction Type:Provider Instructions for Treatment Patient Instructions Indication:Smoker Start:18-Dec-2020 Instruction Type:Provider Instructions for Treatment How to Access Health Informa tion Online using Patient Portal and [employer] Apps Indication:Smoker Start:18-Dec-2020 Instruction Type:Patient Education Patient Instructions Indication:Vitamin D deficiency Start:06-Nov-2020 Instruction Type:Provider Instructions for Treatment How to Access Health Informa tion Online using Patient Portal and [employer] Apps Indication:BMI 21.0-21.9, adult Start:06-Nov-2020 Instruction Type:Patient Education Patient Instructions Indication:Smoker Start:23-Oct-2020 Instruction Type:Provider Instructions for Treatment How to Access Health Informa tion Online using Patient Portal and [employer] Apps Indication:Smoker Start:23-Oct-2020 Instruction Type:Patient Education How to access health informa tion online Indication:BMI 25.0-25.9,adult Start:25-Sep-2020 Instruction Type:Patient Education How to access health informa tion online - Detail Indication:BMI 25.0-25.9,adult Start:25-Sep-2020 Instruction Type:Patient Education Patient Instructions Indication:BMI 25.0-25.9,adult Start:25-Sep-2020 Instruction Type:Provider Instructions for Treatment How to access health informa tion online Indication:Sinus complaint Start:13-Aug-2020 Instruction Type:Patient Education How to access health informa tion online - Detail Indication:Sinus complaint Start:13-Aug-2020 Instruction Type:Patient Education Patient Instructions Indication:Sinus complaint Start:13-Aug-2020 Instruction Type:Provider Instructions for Treatment How to access health informa tion online Indication:Smoker Start:06-Jul-2020 Instruction Type:Patient Education How to access health informa tion online - Detail Indication:Smoker Start:06-Jul-2020 Instruction Type:Patient Education Patient Instructions Indication:Smoker Start:06-Jul-2020 Instruction Type:Provider Instructions for Treatment How to access health informa tion online Indication:Smoker Start:02-Apr-2020 Instruction Type:Patient Education How to access health informa tion online - Detail Indication:Smoker Start:02-Apr-2020 Instruction Type:Patient Education Patient Instructions Indication:Smoker Start:02-Apr-2020 Instruction Type:Provider Instructions for Treatment How to access health informa tion online Indication:BMI 23.0-23.9, adult Start:25-Jan-2020 Instruction Type:Patient Education How to access health informa tion online - Detail Indication:BMI 23.0-23.9, adult Start:25-Jan-2020 Instruction Type:Patient Education Patient Instructions Indication:BMI 23.0-23.9, adult Start:25-Jan-2020 Instruction Type:Provider Instructions for Treatment How to access health informa tion online Indication:Smoker Start:11-Jan-2020 Instruction Type:Patient Education How to access health informa tion online - Detail Indication:Smoker Start:11-Jan-2020 Instruction Type:Patient Education Patient Instructions Indication:Smoker Start:11-Jan-2020 Instruction Type:Provider Instructions for Treatment How to access health informa tion online Indication:Smoker Start:28-Dec-2019 Instruction Type:Patient Education How to access health informa tion online - Detail Indication:Smoker Start:28-Dec-2019 Instruction Type:Patient Education Patient Instructions Indication:Smoker Start:28-Dec-2019 Instruction Type:Provider Instructions for Treatment How to access health informa tion online Indication:Smoker Start:04-Oct-2019 Instruction Type:Patient Education How to access health informa tion online - Detail Indication:Smoker Start:04-Oct-2019 Instruction Type:Patient Education Patient Instructions Indication:Smoker Start:04-Oct-2019 Instruction Type:Provider Instructions for Treatment How to access health informa tion online Indication:Smoker Start:06-Sep-2019 Instruction Type:Patient Education How to access health informa tion online - Detail Indication:Smoker Start:06-Sep-2019 Instruction Type:Patient Education Patient Instructions Indication:Smoker Start:06-Sep-2019 Instruction Type:Provider Instructions for Treatment Patient Instructions Indication:Campylobacter gastroenteritis Start:09-Jan-2016 Instruction Type:Provider Instructions for Treatment How to access health informa tion online Indication:Abdominal pain, acute Start:01-Oct-2015 Instruction Type:Patient Education How to access health informa tion online - Detail Indication:Abdominal pain, acute Start:01-Oct-2015 Instruction Type:Patient Education Patient Instructions Indication:Abdominal pain, acute Start:01-Oct-2015 Instruction Type:Provider Instructions for Treatment Patient Instructions Indication:Emphysema/COPD Start:03-May-2014 Instruction Type:Provider Instructions for Treatment Patient Instructions Indication:Bipolar disorder Start:05-Apr-2014 Instruction Type:Provider Instructions for Treatment Patient Instructions Indication:Asthma Start:21-Nov-2013 Instruction Type:Provider Instructions for Treatment [facility]; [facility] Work Phone: Instructions* Name Dates Details Patient Instructions Indication:Smoker Start:03-Feb-2022 Instruction Type:Provider Instructions for Treatment How to Access Health Informa tion Online using Patient Portal and [employer] Apps Indication:Smoker Start:03-Feb-2022 Instruction Type:Patient Education Patient Instructions Indication:Smoker Start:27-Sep-2021 Instruction Type:Provider Instructions for Treatment How to Access Health Informa tion Online using Patient Portal and [employer] Apps Indication:Smoker Start:27-Sep-2021 Instruction Type:Patient Education Patient Instructions Indication:Smoker Start:26-Sep-2021 Instruction Type:Provider Instructions for Treatment How to Access Health Informa tion Online using Patient Portal and [employer] Apps Indication:Smoker Start:26-Sep-2021 Instruction Type:Patient Education Patient Instructions Indication:Body mass index [BMI] 19.9 or less, adult Start:25-Sep-2021 Instruction Type:Provider Instructions for Treatment How to Access Health Informa tion Online using Patient Portal and [employer] Apps Indication:Body mass index [BMI] 19.9 or less, adult Start:25-Sep-2021 Instruction Type:Patient Education Patient Instructions Indication:Smoker Start:23-Sep-2021 Instruction Type:Provider Instructions for Treatment How to Access Health Informa tion Online using Patient Portal and [employer] Apps Indication:Smoker Start:23-Sep-2021 Instruction Type:Patient Education Patient Instructions Indication:Smoker Start:22-Jul-2021 Instruction Type:Provider Instructions for Treatment How to Access Health Informa tion Online using Patient Portal and [employer] Apps Indication:Smoker Start:22-Jul-2021 Instruction Type:Patient Education Patient Instructions Indication:Smoker Start:21-Jun-2021 Instruction Type:Provider Instructions for Treatment How to Access Health Informa tion Online using Patient Portal and [employer] Apps Indication:Smoker Start:21-Jun-2021 Instruction Type:Patient Education Patient Instructions Indication:BMI 21.0-21.9, adult Start:31-May-2021 Instruction Type:Provider Instructions for Treatment How to Access Health Informa tion Online using Patient Portal and [employer] Apps Indication:BMI 21.0-21.9, adult Start:31-May-2021 Instruction Type:Patient Education How to Access Health Informa tion Online using Patient Portal and [employer] Apps Indication:Smoker Start:18-Apr-2021 Instruction Type:Patient Education Patient Instructions Indication:Smoker Start:18-Apr-2021 Instruction Type:Provider Instructions for Treatment Patient Instructions Indication:Smoker Start:20-Mar-2021 Instruction Type:Provider Instructions for Treatment How to Access Health Informa tion Online using Patient Portal and [employer] Apps Indication:Smoker Start:20-Mar-2021 Instruction Type:Patient Education How to Access Health Informa tion Online using Patient Portal and [employer] Apps Indication:Smoker Start:11-Feb-2021 Instruction Type:Patient Education Patient Instructions Indication:Smoker Start:11-Feb-2021 Instruction Type:Provider Instructions for Treatment Patient Instructions Indication:Smoker Start:18-Dec-2020 Instruction Type:Provider Instructions for Treatment How to Access Health Informa tion Online using Patient Portal and [employer] Apps Indication:Smoker Start:18-Dec-2020 Instruction Type:Patient Education Patient Instructions Indication:Vitamin D deficiency Start:06-Nov-2020 Instruction Type:Provider Instructions for Treatment How to Access Health Informa tion Online using Patient Portal and [employer] Apps Indication:BMI 21.0-21.9, adult Start:06-Nov-2020 Instruction Type:Patient Education Patient Instructions Indication:Smoker Start:23-Oct-2020 Instruction Type:Provider Instructions for Treatment How to Access Health Informa tion Online using Patient Portal and [employer] Apps Indication:Smoker Start:23-Oct-2020 Instruction Type:Patient Education How to access health informa tion online Indication:BMI 25.0-25.9,adult Start:25-Sep-2020 Instruction Type:Patient Education How to access health informa tion online - Detail Indication:BMI 25.0-25.9,adult Start:25-Sep-2020 Instruction Type:Patient Education Patient Instructions Indication:BMI 25.0-25.9,adult Start:25-Sep-2020 Instruction Type:Provider Instructions for Treatment How to access health informa tion online Indication:Sinus complaint Start:13-Aug-2020 Instruction Type:Patient Education How to access health informa tion online - Detail Indication:Sinus complaint Start:13-Aug-2020 Instruction Type:Patient Education Patient Instructions Indication:Sinus complaint Start:13-Aug-2020 Instruction Type:Provider Instructions for Treatment How to access health informa tion online Indication:Smoker Start:06-Jul-2020 Instruction Type:Patient Education How to access health informa tion online - Detail Indication:Smoker Start:06-Jul-2020 Instruction Type:Patient Education Patient Instructions Indication:Smoker Start:06-Jul-2020 Instruction Type:Provider Instructions for Treatment How to access health informa tion online Indication:Smoker Start:02-Apr-2020 Instruction Type:Patient Education How to access health informa tion online - Detail Indication:Smoker Start:02-Apr-2020 Instruction Type:Patient Education Patient Instructions Indication:Smoker Start:02-Apr-2020 Instruction Type:Provider Instructions for Treatment How to access health informa tion online Indication:BMI 23.0-23.9, adult Start:25-Jan-2020 Instruction Type:Patient Education How to access health informa tion online - Detail Indication:BMI 23.0-23.9, adult Start:25-Jan-2020 Instruction Type:Patient Education Patient Instructions Indication:BMI 23.0-23.9, adult Start:25-Jan-2020 Instruction Type:Provider Instructions for Treatment How to access health informa tion online Indication:Smoker Start:11-Jan-2020 Instruction Type:Patient Education How to access health informa tion online - Detail Indication:Smoker Start:11-Jan-2020 Instruction Type:Patient Education Patient Instructions Indication:Smoker Start:11-Jan-2020 Instruction Type:Provider Instructions for Treatment How to access health informa tion online Indication:Smoker Start:28-Dec-2019 Instruction Type:Patient Education How to access health informa tion online - Detail Indication:Smoker Start:28-Dec-2019 Instruction Type:Patient Education Patient Instructions Indication:Smoker Start:28-Dec-2019 Instruction Type:Provider Instructions for Treatment How to access health informa tion online Indication:Smoker Start:04-Oct-2019 Instruction Type:Patient Education How to access health informa tion online - Detail Indication:Smoker Start:04-Oct-2019 Instruction Type:Patient Education Patient Instructions Indication:Smoker Start:04-Oct-2019 Instruction Type:Provider Instructions for Treatment How to access health informa tion online Indication:Smoker Start:06-Sep-2019 Instruction Type:Patient Education How to access health informa tion online - Detail Indication:Smoker Start:06-Sep-2019 Instruction Type:Patient Education Patient Instructions Indication:Smoker Start:06-Sep-2019 Instruction Type:Provider Instructions for Treatment Patient Instructions Indication:Campylobacter gastroenteritis Start:09-Jan-2016 Instruction Type:Provider Instructions for Treatment How to access health informa tion online Indication:Abdominal pain, acute Start:01-Oct-2015 Instruction Type:Patient Education How to access health informa tion online - Detail Indication:Abdominal pain, acute Start:01-Oct-2015 Instruction Type:Patient Education Patient Instructions Indication:Abdominal pain, acute Start:01-Oct-2015 Instruction Type:Provider Instructions for Treatment Patient Instructions Indication:Emphysema/COPD Start:03-May-2014 Instruction Type:Provider Instructions for Treatment Patient Instructions Indication:Bipolar disorder Start:05-Apr-2014 Instruction Type:Provider Instructions for Treatment Patient Instructions Indication:Asthma Start:21-Nov-2013 Instruction Type:Provider Instructions for Treatment [facility]; [facility] Work Phone: Instructions* Name Dates Details Patient Instructions Indication:Smoker Start:03-Feb-2022 Instruction Type:Provider Instructions for Treatment How to Access Health Informa tion Online using Patient Portal and [employer] Apps Indication:Smoker Start:03-Feb-2022 Instruction Type:Patient Education Patient Instructions Indication:Smoker Start:27-Sep-2021 Instruction Type:Provider Instructions for Treatment How to Access Health Informa tion Online using Patient Portal and [employer] Apps Indication:Smoker Start:27-Sep-2021 Instruction Type:Patient Education Patient Instructions Indication:Smoker Start:26-Sep-2021 Instruction Type:Provider Instructions for Treatment How to Access Health Informa tion Online using Patient Portal and [employer] Apps Indication:Smoker Start:26-Sep-2021 Instruction Type:Patient Education Patient Instructions Indication:Body mass index [BMI] 19.9 or less, adult Start:25-Sep-2021 Instruction Type:Provider Instructions for Treatment How to Access Health Informa tion Online using Patient Portal and [employer] Apps Indication:Body mass index [BMI] 19.9 or less, adult Start:25-Sep-2021 Instruction Type:Patient Education Patient Instructions Indication:Smoker Start:23-Sep-2021 Instruction Type:Provider Instructions for Treatment How to Access Health Informa tion Online using Patient Portal and [employer] Apps Indication:Smoker Start:23-Sep-2021 Instruction Type:Patient Education Patient Instructions Indication:Smoker Start:22-Jul-2021 Instruction Type:Provider Instructions for Treatment How to Access Health Informa tion Online using Patient Portal and [employer] Apps Indication:Smoker Start:22-Jul-2021 Instruction Type:Patient Education Patient Instructions Indication:Smoker Start:21-Jun-2021 Instruction Type:Provider Instructions for Treatment How to Access Health Informa tion Online using Patient Portal and [employer] Apps Indication:Smoker Start:21-Jun-2021 Instruction Type:Patient Education Patient Instructions Indication:BMI 21.0-21.9, adult Start:31-May-2021 Instruction Type:Provider Instructions for Treatment How to Access Health Informa tion Online using Patient Portal and [employer] Apps Indication:BMI 21.0-21.9, adult Start:31-May-2021 Instruction Type:Patient Education How to Access Health Informa tion Online using Patient Portal and [employer] Apps Indication:Smoker Start:18-Apr-2021 Instruction Type:Patient Education Patient Instructions Indication:Smoker Start:18-Apr-2021 Instruction Type:Provider Instructions for Treatment Patient Instructions Indication:Smoker Start:20-Mar-2021 Instruction Type:Provider Instructions for Treatment How to Access Health Informa tion Online using Patient Portal and [employer] Apps Indication:Smoker Start:20-Mar-2021 Instruction Type:Patient Education How to Access Health Informa tion Online using Patient Portal and [employer] Apps Indication:Smoker Start:11-Feb-2021 Instruction Type:Patient Education Patient Instructions Indication:Smoker Start:11-Feb-2021 Instruction Type:Provider Instructions for Treatment Patient Instructions Indication:Smoker Start:18-Dec-2020 Instruction Type:Provider Instructions for Treatment How to Access Health Informa tion Online using Patient Portal and [employer] Apps Indication:Smoker Start:18-Dec-2020 Instruction Type:Patient Education Patient Instructions Indication:Vitamin D deficiency Start:06-Nov-2020 Instruction Type:Provider Instructions for Treatment How to Access Health Informa tion Online using Patient Portal and [employer] Apps Indication:BMI 21.0-21.9, adult Start:06-Nov-2020 Instruction Type:Patient Education Patient Instructions Indication:Smoker Start:23-Oct-2020 Instruction Type:Provider Instructions for Treatment How to Access Health Informa tion Online using Patient Portal and [employer] Apps Indication:Smoker Start:23-Oct-2020 Instruction Type:Patient Education How to access health informa tion online Indication:BMI 25.0-25.9,adult Start:25-Sep-2020 Instruction Type:Patient Education How to access health informa tion online - Detail Indication:BMI 25.0-25.9,adult Start:25-Sep-2020 Instruction Type:Patient Education Patient Instructions Indication:BMI 25.0-25.9,adult Start:25-Sep-2020 Instruction Type:Provider Instructions for Treatment How to access health informa tion online Indication:Sinus complaint Start:13-Aug-2020 Instruction Type:Patient Education How to access health informa tion online - Detail Indication:Sinus complaint Start:13-Aug-2020 Instruction Type:Patient Education Patient Instructions Indication:Sinus complaint Start:13-Aug-2020 Instruction Type:Provider Instructions for Treatment How to access health informa tion online Indication:Smoker Start:06-Jul-2020 Instruction Type:Patient Education How to access health informa tion online - Detail Indication:Smoker Start:06-Jul-2020 Instruction Type:Patient Education Patient Instructions Indication:Smoker Start:06-Jul-2020 Instruction Type:Provider Instructions for Treatment How to access health informa tion online Indication:Smoker Start:02-Apr-2020 Instruction Type:Patient Education How to access health informa tion online - Detail Indication:Smoker Start:02-Apr-2020 Instruction Type:Patient Education Patient Instructions Indication:Smoker Start:02-Apr-2020 Instruction Type:Provider Instructions for Treatment How to access health informa tion online Indication:BMI 23.0-23.9, adult Start:25-Jan-2020 Instruction Type:Patient Education How to access health informa tion online - Detail Indication:BMI 23.0-23.9, adult Start:25-Jan-2020 Instruction Type:Patient Education Patient Instructions Indication:BMI 23.0-23.9, adult Start:25-Jan-2020 Instruction Type:Provider Instructions for Treatment How to access health informa tion online Indication:Smoker Start:11-Jan-2020 Instruction Type:Patient Education How to access health informa tion online - Detail Indication:Smoker Start:11-Jan-2020 Instruction Type:Patient Education Patient Instructions Indication:Smoker Start:11-Jan-2020 Instruction Type:Provider Instructions for Treatment How to access health informa tion online Indication:Smoker Start:28-Dec-2019 Instruction Type:Patient Education How to access health informa tion online - Detail Indication:Smoker Start:28-Dec-2019 Instruction Type:Patient Education Patient Instructions Indication:Smoker Start:28-Dec-2019 Instruction Type:Provider Instructions for Treatment How to access health informa tion online Indication:Smoker Start:04-Oct-2019 Instruction Type:Patient Education How to access health informa tion online - Detail Indication:Smoker Start:04-Oct-2019 Instruction Type:Patient Education Patient Instructions Indication:Smoker Start:04-Oct-2019 Instruction Type:Provider Instructions for Treatment How to access health informa tion online Indication:Smoker Start:06-Sep-2019 Instruction Type:Patient Education How to access health informa tion online - Detail Indication:Smoker Start:06-Sep-2019 Instruction Type:Patient Education Patient Instructions Indication:Smoker Start:06-Sep-2019 Instruction Type:Provider Instructions for Treatment Patient Instructions Indication:Campylobacter gastroenteritis Start:09-Jan-2016 Instruction Type:Provider Instructions for Treatment How to access health informa tion online Indication:Abdominal pain, acute Start:01-Oct-2015 Instruction Type:Patient Education How to access health informa tion online - Detail Indication:Abdominal pain, acute Start:01-Oct-2015 Instruction Type:Patient Education Patient Instructions Indication:Abdominal pain, acute Start:01-Oct-2015 Instruction Type:Provider Instructions for Treatment Patient Instructions Indication:Emphysema/COPD Start:03-May-2014 Instruction Type:Provider Instructions for Treatment Patient Instructions Indication:Bipolar disorder Start:05-Apr-2014 Instruction Type:Provider Instructions for Treatment Patient Instructions Indication:Asthma Start:21-Nov-2013 Instruction Type:Provider Instructions for Treatment [facility]; [facility] Work Phone: progress note No data available for this section [facility] Reason for visit Narrative* Diagnostic Procedure Only (Routine) - Closed Specialty Diagnoses / Procedures Referred By Deanna beauchamp Referred To Contact Radiology / RADIO MRI [facility] MOB Diagnoses Hemiplegia, unspecified affecting unspecified side MRI BRAIN AND BRAIN STEM WO CONTRAST-HEMIPLEGIA, UNSPECIFIED ORDER SCANNED AND PLACED IN SYNGO Procedures MRI BRAIN BRAIN STEM W/O CONTRAST MATERIAL MRI WO VISHAL B [address] Saurabh Garibay, DO [address] [place] [address] Radio Mri [facility] [address] [place] [address] Referral ID Status Reason Start Date Expiration Date Visits Re quested Visits Authorized [id number] Closed 08/21/2022 10/20/2022 1 1 [facility] Instructions Name Dates Details Patient Instructions Indication:Campylobacter gastroenteritis Start:09-Jan-2016 Instruction Type:Provider Instructions for Treatment How to access health informa tion online Indication:Abdominal pain, acute Start:01-Oct-2015 Instruction Type:Patient Education How to access health informa tion online - Detail Indication:Abdominal pain, acute Start:01-Oct-2015 Instruction Type:Patient Education Patient Instructions Indication:Abdominal pain, acute Start:01-Oct-2015 Instruction Type:Provider Instructions for Treatment Patient Instructions Indication:Emphysema/COPD Start:03-May-2014 Instruction Type:Provider Instructions for Treatment Patient Instructions Indication:Bipolar disorder Start:05-Apr-2014 Instruction Type:Provider Instructions for Treatment Patient Instructions Indication:Asthma Start:21-Nov-2013 Instruction Type:Provider Instructions for Treatment Name Dates Details How to access health informa tion online Indication:Smoker Start:06-Sep-2019 Instruction Type:Patient Education How to access health informa tion online - Detail Indication:Smoker Start:06-Sep-2019 Instruction Type:Patient Education Patient Instructions Indication:Smoker Start:06-Sep-2019 Instruction Type:Provider Instructions for Treatment Patient Instructions Indication:Campylobacter gastroenteritis Start:09-Jan-2016 Instruction Type:Provider Instructions for Treatment How to access health informa tion online Indication:Abdominal pain, acute Start:01-Oct-2015 Instruction Type:Patient Education How to access health informa tion online - Detail Indication:Abdominal pain, acute Start:01-Oct-2015 Instruction Type:Patient Education Patient Instructions Indication:Abdominal pain, acute Start:01-Oct-2015 Instruction Type:Provider Instructions for Treatment Patient Instructions Indication:Emphysema/COPD Start:03-May-2014 Instruction Type:Provider Instructions for Treatment Patient Instructions Indication:Bipolar disorder Start:05-Apr-2014 Instruction Type:Provider Instructions for Treatment Patient Instructions Indication:Asthma Start:21-Nov-2013 Instruction Type:Provider Instructions for Treatment Name Dates Details How to access health informa tion online Indication:Smoker Start:02-Apr-2020 Instruction Type:Patient Education How to access health informa tion online - Detail Indication:Smoker Start:02-Apr-2020 Instruction Type:Patient Education Patient Instructions Indication:Smoker Start:02-Apr-2020 Instruction Type:Provider Instructions for Treatment How to access health informa tion online Indication:BMI 23.0-23.9, adult Start:25-Jan-2020 Instruction Type:Patient Education How to access health informa tion online - Detail Indication:BMI 23.0-23.9, adult Start:25-Jan-2020 Instruction Type:Patient Education Patient Instructions Indication:BMI 23.0-23.9, adult Start:25-Jan-2020 Instruction Type:Provider Instructions for Treatment How to access health informa tion online Indication:Smoker Start:11-Jan-2020 Instruction Type:Patient Education How to access health informa tion online - Detail Indication:Smoker Start:11-Jan-2020 Instruction Type:Patient Education Patient Instructions Indication:Smoker Start:11-Jan-2020 Instruction Type:Provider Instructions for Treatment How to access health informa tion online Indication:Smoker Start:28-Dec-2019 Instruction Type:Patient Education How to access health informa tion online - Detail Indication:Smoker Start:28-Dec-2019 Instruction Type:Patient Education Patient Instructions Indication:Smoker Start:28-Dec-2019 Instruction Type:Provider Instructions for Treatment How to access health informa tion online Indication:Smoker Start:04-Oct-2019 Instruction Type:Patient Education How to access health informa tion online - Detail Indication:Smoker Start:04-Oct-2019 Instruction Type:Patient Education Patient Instructions Indication:Smoker Start:04-Oct-2019 Instruction Type:Provider Instructions for Treatment How to access health informa tion online Indication:Smoker Start:06-Sep-2019 Instruction Type:Patient Education How to access health informa tion online - Detail Indication:Smoker Start:06-Sep-2019 Instruction Type:Patient Education Patient Instructions Indication:Smoker Start:06-Sep-2019 Instruction Type:Provider Instructions for Treatment Patient Instructions Indication:Campylobacter gastroenteritis Start:09-Jan-2016 Instruction Type:Provider Instructions for Treatment How to access health informa tion online Indication:Abdominal pain, acute Start:01-Oct-2015 Instruction Type:Patient Education How to access health informa tion online - Detail Indication:Abdominal pain, acute Start:01-Oct-2015 Instruction Type:Patient Education Patient Instructions Indication:Abdominal pain, acute Start:01-Oct-2015 Instruction Type:Provider Instructions for Treatment Patient Instructions Indication:Emphysema/COPD Start:03-May-2014 Instruction Type:Provider Instructions for Treatment Patient Instructions Indication:Bipolar disorder Start:05-Apr-2014 Instruction Type:Provider Instructions for Treatment Patient Instructions Indication:Asthma Start:21-Nov-2013 Instruction Type:Provider Instructions for Treatment Name Dates Details How to access health informa tion online Indication:Smoker Start:02-Apr-2020 Instruction Type:Patient Education How to access health informa tion online - Detail Indication:Smoker Start:02-Apr-2020 Instruction Type:Patient Education Patient Instructions Indication:Smoker Start:02-Apr-2020 Instruction Type:Provider Instructions for Treatment How to access health informa tion online Indication:BMI 23.0-23.9, adult Start:25-Jan-2020 Instruction Type:Patient Education How to access health informa tion online - Detail Indication:BMI 23.0-23.9, adult Start:25-Jan-2020 Instruction Type:Patient Education Patient Instructions Indication:BMI 23.0-23.9, adult Start:25-Jan-2020 Instruction Type:Provider Instructions for Treatment How to access health informa tion online Indication:Smoker Start:11-Jan-2020 Instruction Type:Patient Education How to access health informa tion online - Detail Indication:Smoker Start:11-Jan-2020 Instruction Type:Patient Education Patient Instructions Indication:Smoker Start:11-Jan-2020 Instruction Type:Provider Instructions for Treatment How to access health informa tion online Indication:Smoker Start:28-Dec-2019 Instruction Type:Patient Education How to access health informa tion online - Detail Indication:Smoker Start:28-Dec-2019 Instruction Type:Patient Education Patient Instructions Indication:Smoker Start:28-Dec-2019 Instruction Type:Provider Instructions for Treatment How to access health informa tion online Indication:Smoker Start:04-Oct-2019 Instruction Type:Patient Education How to access health informa tion online - Detail Indication:Smoker Start:04-Oct-2019 Instruction Type:Patient Education Patient Instructions Indication:Smoker Start:04-Oct-2019 Instruction Type:Provider Instructions for Treatment How to access health informa tion online Indication:Smoker Start:06-Sep-2019 Instruction Type:Patient Education How to access health informa tion online - Detail Indication:Smoker Start:06-Sep-2019 Instruction Type:Patient Education Patient Instructions Indication:Smoker Start:06-Sep-2019 Instruction Type:Provider Instructions for Treatment Patient Instructions Indication:Campylobacter gastroenteritis Start:09-Jan-2016 Instruction Type:Provider Instructions for Treatment How to access health informa tion online Indication:Abdominal pain, acute Start:01-Oct-2015 Instruction Type:Patient Education How to access health informa tion online - Detail Indication:Abdominal pain, acute Start:01-Oct-2015 Instruction Type:Patient Education Patient Instructions Indication:Abdominal pain, acute Start:01-Oct-2015 Instruction Type:Provider Instructions for Treatment Patient Instructions Indication:Emphysema/COPD Start:03-May-2014 Instruction Type:Provider Instructions for Treatment Patient Instructions Indication:Bipolar disorder Start:05-Apr-2014 Instruction Type:Provider Instructions for Treatment Patient Instructions Indication:Asthma Start:21-Nov-2013 Instruction Type:Provider Instructions for Treatment Name Dates Details How to access health informa tion online Indication:Smoker Start:06-Jul-2020 Instruction Type:Patient Education How to access health informa tion online - Detail Indication:Smoker Start:06-Jul-2020 Instruction Type:Patient Education Patient Instructions Indication:Smoker Start:06-Jul-2020 Instruction Type:Provider Instructions for Treatment How to access health informa tion online Indication:Smoker Start:02-Apr-2020 Instruction Type:Patient Education How to access health informa tion online - Detail Indication:Smoker Start:02-Apr-2020 Instruction Type:Patient Education Patient Instructions Indication:Smoker Start:02-Apr-2020 Instruction Type:Provider Instructions for Treatment How to access health informa tion online Indication:BMI 23.0-23.9, adult Start:25-Jan-2020 Instruction Type:Patient Education How to access health informa tion online - Detail Indication:BMI 23.0-23.9, adult Start:25-Jan-2020 Instruction Type:Patient Education Patient Instructions Indication:BMI 23.0-23.9, adult Start:25-Jan-2020 Instruction Type:Provider Instructions for Treatment How to access health informa tion online Indication:Smoker Start:11-Jan-2020 Instruction Type:Patient Education How to access health informa tion online - Detail Indication:Smoker Start:11-Jan-2020 Instruction Type:Patient Education Patient Instructions Indication:Smoker Start:11-Jan-2020 Instruction Type:Provider Instructions for Treatment How to access health informa tion online Indication:Smoker Start:28-Dec-2019 Instruction Type:Patient Education How to access health informa tion online - Detail Indication:Smoker Start:28-Dec-2019 Instruction Type:Patient Education Patient Instructions Indication:Smoker Start:28-Dec-2019 Instruction Type:Provider Instructions for Treatment How to access health informa tion online Indication:Smoker Start:04-Oct-2019 Instruction Type:Patient Education How to access health informa tion online - Detail Indication:Smoker Start:04-Oct-2019 Instruction Type:Patient Education Patient Instructions Indication:Smoker Start:04-Oct-2019 Instruction Type:Provider Instructions for Treatment How to access health informa tion online Indication:Smoker Start:06-Sep-2019 Instruction Type:Patient Education How to access health informa tion online - Detail Indication:Smoker Start:06-Sep-2019 Instruction Type:Patient Education Patient Instructions Indication:Smoker Start:06-Sep-2019 Instruction Type:Provider Instructions for Treatment Patient Instructions Indication:Campylobacter gastroenteritis Start:09-Jan-2016 Instruction Type:Provider Instructions for Treatment How to access health informa tion online Indication:Abdominal pain, acute Start:01-Oct-2015 Instruction Type:Patient Education How to access health informa tion online - Detail Indication:Abdominal pain, acute Start:01-Oct-2015 Instruction Type:Patient Education Patient Instructions Indication:Abdominal pain, acute Start:01-Oct-2015 Instruction Type:Provider Instructions for Treatment Patient Instructions Indication:Emphysema/COPD Start:03-May-2014 Instruction Type:Provider Instructions for Treatment Patient Instructions Indication:Bipolar disorder Start:05-Apr-2014 Instruction Type:Provider Instructions for Treatment Patient Instructions Indication:Asthma Start:21-Nov-2013 Instruction Type:Provider Instructions for Treatment Name Dates Details How to access health informa tion online Indication:Smoker Start:06-Jul-2020 Instruction Type:Patient Education How to access health informa tion online - Detail Indication:Smoker Start:06-Jul-2020 Instruction Type:Patient Education Patient Instructions Indication:Smoker Start:06-Jul-2020 Instruction Type:Provider Instructions for Treatment How to access health informa tion online Indication:Smoker Start:02-Apr-2020 Instruction Type:Patient Education How to access health informa tion online - Detail Indication:Smoker Start:02-Apr-2020 Instruction Type:Patient Education Patient Instructions Indication:Smoker Start:02-Apr-2020 Instruction Type:Provider Instructions for Treatment How to access health informa tion online Indication:BMI 23.0-23.9, adult Start:25-Jan-2020 Instruction Type:Patient Education How to access health informa tion online - Detail Indication:BMI 23.0-23.9, adult Start:25-Jan-2020 Instruction Type:Patient Education Patient Instructions Indication:BMI 23.0-23.9, adult Start:25-Jan-2020 Instruction Type:Provider Instructions for Treatment How to access health informa tion online Indication:Smoker Start:11-Jan-2020 Instruction Type:Patient Education How to access health informa tion online - Detail Indication:Smoker Start:11-Jan-2020 Instruction Type:Patient Education Patient Instructions Indication:Smoker Start:11-Jan-2020 Instruction Type:Provider Instructions for Treatment How to access health informa tion online Indication:Smoker Start:28-Dec-2019 Instruction Type:Patient Education How to access health informa tion online - Detail Indication:Smoker Start:28-Dec-2019 Instruction Type:Patient Education Patient Instructions Indication:Smoker Start:28-Dec-2019 Instruction Type:Provider Instructions for Treatment How to access health informa tion online Indication:Smoker Start:04-Oct-2019 Instruction Type:Patient Education How to access health informa tion online - Detail Indication:Smoker Start:04-Oct-2019 Instruction Type:Patient Education Patient Instructions Indication:Smoker Start:04-Oct-2019 Instruction Type:Provider Instructions for Treatment How to access health informa tion online Indication:Smoker Start:06-Sep-2019 Instruction Type:Patient Education How to access health informa tion online - Detail Indication:Smoker Start:06-Sep-2019 Instruction Type:Patient Education Patient Instructions Indication:Smoker Start:06-Sep-2019 Instruction Type:Provider Instructions for Treatment Patient Instructions Indication:Campylobacter gastroenteritis Start:09-Jan-2016 Instruction Type:Provider Instructions for Treatment How to access health informa tion online Indication:Abdominal pain, acute Start:01-Oct-2015 Instruction Type:Patient Education How to access health informa tion online - Detail Indication:Abdominal pain, acute Start:01-Oct-2015 Instruction Type:Patient Education Patient Instructions Indication:Abdominal pain, acute Start:01-Oct-2015 Instruction Type:Provider Instructions for Treatment Patient Instructions Indication:Emphysema/COPD Start:03-May-2014 Instruction Type:Provider Instructions for Treatment Patient Instructions Indication:Bipolar disorder Start:05-Apr-2014 Instruction Type:Provider Instructions for Treatment Patient Instructions Indication:Asthma Start:21-Nov-2013 Instruction Type:Provider Instructions for Treatment Name Dates Details How to access health informa tion online Indication:Smoker Start:06-Jul-2020 Instruction Type:Patient Education How to access health informa tion online - Detail Indication:Smoker Start:06-Jul-2020 Instruction Type:Patient Education Patient Instructions Indication:Smoker Start:06-Jul-2020 Instruction Type:Provider Instructions for Treatment How to access health informa tion online Indication:Smoker Start:02-Apr-2020 Instruction Type:Patient Education How to access health informa tion online - Detail Indication:Smoker Start:02-Apr-2020 Instruction Type:Patient Education Patient Instructions Indication:Smoker Start:02-Apr-2020 Instruction Type:Provider Instructions for Treatment How to access health informa tion online Indication:BMI 23.0-23.9, adult Start:25-Jan-2020 Instruction Type:Patient Education How to access health informa tion online - Detail Indication:BMI 23.0-23.9, adult Start:25-Jan-2020 Instruction Type:Patient Education Patient Instructions Indication:BMI 23.0-23.9, adult Start:25-Jan-2020 Instruction Type:Provider Instructions for Treatment How to access health informa tion online Indication:Smoker Start:11-Jan-2020 Instruction Type:Patient Education How to access health informa tion online - Detail Indication:Smoker Start:11-Jan-2020 Instruction Type:Patient Education Patient Instructions Indication:Smoker Start:11-Jan-2020 Instruction Type:Provider Instructions for Treatment How to access health informa tion online Indication:Smoker Start:28-Dec-2019 Instruction Type:Patient Education How to access health informa tion online - Detail Indication:Smoker Start:28-Dec-2019 Instruction Type:Patient Education Patient Instructions Indication:Smoker Start:28-Dec-2019 Instruction Type:Provider Instructions for Treatment How to access health informa tion online Indication:Smoker Start:04-Oct-2019 Instruction Type:Patient Education How to access health informa tion online - Detail Indication:Smoker Start:04-Oct-2019 Instruction Type:Patient Education Patient Instructions Indication:Smoker Start:04-Oct-2019 Instruction Type:Provider Instructions for Treatment How to access health informa tion online Indication:Smoker Start:06-Sep-2019 Instruction Type:Patient Education How to access health informa tion online - Detail Indication:Smoker Start:06-Sep-2019 Instruction Type:Patient Education Patient Instructions Indication:Smoker Start:06-Sep-2019 Instruction Type:Provider Instructions for Treatment Patient Instructions Indication:Campylobacter gastroenteritis Start:09-Jan-2016 Instruction Type:Provider Instructions for Treatment How to access health informa tion online Indication:Abdominal pain, acute Start:01-Oct-2015 Instruction Type:Patient Education How to access health informa tion online - Detail Indication:Abdominal pain, acute Start:01-Oct-2015 Instruction Type:Patient Education Patient Instructions Indication:Abdominal pain, acute Start:01-Oct-2015 Instruction Type:Provider Instructions for Treatment Patient Instructions Indication:Emphysema/COPD Start:03-May-2014 Instruction Type:Provider Instructions for Treatment Patient Instructions Indication:Bipolar disorder Start:05-Apr-2014 Instruction Type:Provider Instructions for Treatment Patient Instructions Indication:Asthma Start:21-Nov-2013 Instruction Type:Provider Instructions for Treatment Name Dates Details How to access health informa tion online Indication:Smoker Start:06-Jul-2020 Instruction Type:Patient Education How to access health informa tion online - Detail Indication:Smoker Start:06-Jul-2020 Instruction Type:Patient Education Patient Instructions Indication:Smoker Start:06-Jul-2020 Instruction Type:Provider Instructions for Treatment How to access health informa tion online Indication:Smoker Start:02-Apr-2020 Instruction Type:Patient Education How to access health informa tion online - Detail Indication:Smoker Start:02-Apr-2020 Instruction Type:Patient Education Patient Instructions Indication:Smoker Start:02-Apr-2020 Instruction Type:Provider Instructions for Treatment How to access health informa tion online Indication:BMI 23.0-23.9, adult Start:25-Jan-2020 Instruction Type:Patient Education How to access health informa tion online - Detail Indication:BMI 23.0-23.9, adult Start:25-Jan-2020 Instruction Type:Patient Education Patient Instructions Indication:BMI 23.0-23.9, adult Start:25-Jan-2020 Instruction Type:Provider Instructions for Treatment How to access health informa tion online Indication:Smoker Start:11-Jan-2020 Instruction Type:Patient Education How to access health informa tion online - Detail Indication:Smoker Start:11-Jan-2020 Instruction Type:Patient Education Patient Instructions Indication:Smoker Start:11-Jan-2020 Instruction Type:Provider Instructions for Treatment How to access health informa tion online Indication:Smoker Start:28-Dec-2019 Instruction Type:Patient Education How to access health informa tion online - Detail Indication:Smoker Start:28-Dec-2019 Instruction Type:Patient Education Patient Instructions Indication:Smoker Start:28-Dec-2019 Instruction Type:Provider Instructions for Treatment How to access health informa tion online Indication:Smoker Start:04-Oct-2019 Instruction Type:Patient Education How to access health informa tion online - Detail Indication:Smoker Start:04-Oct-2019 Instruction Type:Patient Education Patient Instructions Indication:Smoker Start:04-Oct-2019 Instruction Type:Provider Instructions for Treatment How to access health informa tion online Indication:Smoker Start:06-Sep-2019 Instruction Type:Patient Education How to access health informa tion online - Detail Indication:Smoker Start:06-Sep-2019 Instruction Type:Patient Education Patient Instructions Indication:Smoker Start:06-Sep-2019 Instruction Type:Provider Instructions for Treatment Patient Instructions Indication:Campylobacter gastroenteritis Start:09-Jan-2016 Instruction Type:Provider Instructions for Treatment How to access health informa tion online Indication:Abdominal pain, acute Start:01-Oct-2015 Instruction Type:Patient Education How to access health informa tion online - Detail Indication:Abdominal pain, acute Start:01-Oct-2015 Instruction Type:Patient Education Patient Instructions Indication:Abdominal pain, acute Start:01-Oct-2015 Instruction Type:Provider Instructions for Treatment Patient Instructions Indication:Emphysema/COPD Start:03-May-2014 Instruction Type:Provider Instructions for Treatment Patient Instructions Indication:Bipolar disorder Start:05-Apr-2014 Instruction Type:Provider Instructions for Treatment Patient Instructions Indication:Asthma Start:21-Nov-2013 Instruction Type:Provider Instructions for Treatment Name Dates Details How to access health informa tion online Indication:Sinus complaint Start:13-Aug-2020 Instruction Type:Patient Education How to access health informa tion online - Detail Indication:Sinus complaint Start:13-Aug-2020 Instruction Type:Patient Education Patient Instructions Indication:Sinus complaint Start:13-Aug-2020 Instruction Type:Provider Instructions for Treatment How to access health informa tion online Indication:Smoker Start:06-Jul-2020 Instruction Type:Patient Education How to access health informa tion online - Detail Indication:Smoker Start:06-Jul-2020 Instruction Type:Patient Education Patient Instructions Indication:Smoker Start:06-Jul-2020 Instruction Type:Provider Instructions for Treatment How to access health informa tion online Indication:Smoker Start:02-Apr-2020 Instruction Type:Patient Education How to access health informa tion online - Detail Indication:Smoker Start:02-Apr-2020 Instruction Type:Patient Education Patient Instructions Indication:Smoker Start:02-Apr-2020 Instruction Type:Provider Instructions for Treatment How to access health informa tion online Indication:BMI 23.0-23.9, adult Start:25-Jan-2020 Instruction Type:Patient Education How to access health informa tion online - Detail Indication:BMI 23.0-23.9, adult Start:25-Jan-2020 Instruction Type:Patient Education Patient Instructions Indication:BMI 23.0-23.9, adult Start:25-Jan-2020 Instruction Type:Provider Instructions for Treatment How to access health informa tion online Indication:Smoker Start:11-Jan-2020 Instruction Type:Patient Education How to access health informa tion online - Detail Indication:Smoker Start:11-Jan-2020 Instruction Type:Patient Education Patient Instructions Indication:Smoker Start:11-Jan-2020 Instruction Type:Provider Instructions for Treatment How to access health informa tion online Indication:Smoker Start:28-Dec-2019 Instruction Type:Patient Education How to access health informa tion online - Detail Indication:Smoker Start:28-Dec-2019 Instruction Type:Patient Education Patient Instructions Indication:Smoker Start:28-Dec-2019 Instruction Type:Provider Instructions for Treatment How to access health informa tion online Indication:Smoker Start:04-Oct-2019 Instruction Type:Patient Education How to access health informa tion online - Detail Indication:Smoker Start:04-Oct-2019 Instruction Type:Patient Education Patient Instructions Indication:Smoker Start:04-Oct-2019 Instruction Type:Provider Instructions for Treatment How to access health informa tion online Indication:Smoker Start:06-Sep-2019 Instruction Type:Patient Education How to access health informa tion online - Detail Indication:Smoker Start:06-Sep-2019 Instruction Type:Patient Education Patient Instructions Indication:Smoker Start:06-Sep-2019 Instruction Type:Provider Instructions for Treatment Patient Instructions Indication:Campylobacter gastroenteritis Start:09-Jan-2016 Instruction Type:Provider Instructions for Treatment How to access health informa tion online Indication:Abdominal pain, acute Start:01-Oct-2015 Instruction Type:Patient Education How to access health informa tion online - Detail Indication:Abdominal pain, acute Start:01-Oct-2015 Instruction Type:Patient Education Patient Instructions Indication:Abdominal pain, acute Start:01-Oct-2015 Instruction Type:Provider Instructions for Treatment Patient Instructions Indication:Emphysema/COPD Start:03-May-2014 Instruction Type:Provider Instructions for Treatment Patient Instructions Indication:Bipolar disorder Start:05-Apr-2014 Instruction Type:Provider Instructions for Treatment Patient Instructions Indication:Asthma Start:21-Nov-2013 Instruction Type:Provider Instructions for Treatment Name Dates Details How to access health informa tion online Indication:BMI 25.0-25.9,adult Start:25-Sep-2020 Instruction Type:Patient Education How to access health informa tion online - Detail Indication:BMI 25.0-25.9,adult Start:25-Sep-2020 Instruction Type:Patient Education Patient Instructions Indication:BMI 25.0-25.9,adult Start:25-Sep-2020 Instruction Type:Provider Instructions for Treatment How to access health informa tion online Indication:Sinus complaint Start:13-Aug-2020 Instruction Type:Patient Education How to access health informa tion online - Detail Indication:Sinus complaint Start:13-Aug-2020 Instruction Type:Patient Education Patient Instructions Indication:Sinus complaint Start:13-Aug-2020 Instruction Type:Provider Instructions for Treatment How to access health informa tion online Indication:Smoker Start:06-Jul-2020 Instruction Type:Patient Education How to access health informa tion online - Detail Indication:Smoker Start:06-Jul-2020 Instruction Type:Patient Education Patient Instructions Indication:Smoker Start:06-Jul-2020 Instruction Type:Provider Instructions for Treatment How to access health informa tion online Indication:Smoker Start:02-Apr-2020 Instruction Type:Patient Education How to access health informa tion online - Detail Indication:Smoker Start:02-Apr-2020 Instruction Type:Patient Education Patient Instructions Indication:Smoker Start:02-Apr-2020 Instruction Type:Provider Instructions for Treatment How to access health informa tion online Indication:BMI 23.0-23.9, adult Start:25-Jan-2020 Instruction Type:Patient Education How to access health informa tion online - Detail Indication:BMI 23.0-23.9, adult Start:25-Jan-2020 Instruction Type:Patient Education Patient Instructions Indication:BMI 23.0-23.9, adult Start:25-Jan-2020 Instruction Type:Provider Instructions for Treatment How to access health informa tion online Indication:Smoker Start:11-Jan-2020 Instruction Type:Patient Education How to access health informa tion online - Detail Indication:Smoker Start:11-Jan-2020 Instruction Type:Patient Education Patient Instructions Indication:Smoker Start:11-Jan-2020 Instruction Type:Provider Instructions for Treatment How to access health informa tion online Indication:Smoker Start:28-Dec-2019 Instruction Type:Patient Education How to access health informa tion online - Detail Indication:Smoker Start:28-Dec-2019 Instruction Type:Patient Education Patient Instructions Indication:Smoker Start:28-Dec-2019 Instruction Type:Provider Instructions for Treatment How to access health informa tion online Indication:Smoker Start:04-Oct-2019 Instruction Type:Patient Education How to access health informa tion online - Detail Indication:Smoker Start:04-Oct-2019 Instruction Type:Patient Education Patient Instructions Indication:Smoker Start:04-Oct-2019 Instruction Type:Provider Instructions for Treatment How to access health informa tion online Indication:Smoker Start:06-Sep-2019 Instruction Type:Patient Education How to access health informa tion online - Detail Indication:Smoker Start:06-Sep-2019 Instruction Type:Patient Education Patient Instructions Indication:Smoker Start:06-Sep-2019 Instruction Type:Provider Instructions for Treatment Patient Instructions Indication:Campylobacter gastroenteritis Start:09-Jan-2016 Instruction Type:Provider Instructions for Treatment How to access health informa tion online Indication:Abdominal pain, acute Start:01-Oct-2015 Instruction Type:Patient Education How to access health informa tion online - Detail Indication:Abdominal pain, acute Start:01-Oct-2015 Instruction Type:Patient Education Patient Instructions Indication:Abdominal pain, acute Start:01-Oct-2015 Instruction Type:Provider Instructions for Treatment Patient Instructions Indication:Emphysema/COPD Start:03-May-2014 Instruction Type:Provider Instructions for Treatment Patient Instructions Indication:Bipolar disorder Start:05-Apr-2014 Instruction Type:Provider Instructions for Treatment Patient Instructions Indication:Asthma Start:21-Nov-2013 Instruction Type:Provider Instructions for Treatment Name Dates Details Patient Instructions Indication:Smoker Start:23-Oct-2020 Instruction Type:Provider Instructions for Treatment How to Access Health Informa tion Online using Patient Portal and [employer] Apps Indication:Smoker Start:23-Oct-2020 Instruction Type:Patient Education How to access health informa tion online Indication:BMI 25.0-25.9,adult Start:25-Sep-2020 Instruction Type:Patient Education How to access health informa tion online - Detail Indication:BMI 25.0-25.9,adult Start:25-Sep-2020 Instruction Type:Patient Education Patient Instructions Indication:BMI 25.0-25.9,adult Start:25-Sep-2020 Instruction Type:Provider Instructions for Treatment How to access health informa tion online Indication:Sinus complaint Start:13-Aug-2020 Instruction Type:Patient Education How to access health informa tion online - Detail Indication:Sinus complaint Start:13-Aug-2020 Instruction Type:Patient Education Patient Instructions Indication:Sinus complaint Start:13-Aug-2020 Instruction Type:Provider Instructions for Treatment How to access health informa tion online Indication:Smoker Start:06-Jul-2020 Instruction Type:Patient Education How to access health informa tion online - Detail Indication:Smoker Start:06-Jul-2020 Instruction Type:Patient Education Patient Instructions Indication:Smoker Start:06-Jul-2020 Instruction Type:Provider Instructions for Treatment How to access health informa tion online Indication:Smoker Start:02-Apr-2020 Instruction Type:Patient Education How to access health informa tion online - Detail Indication:Smoker Start:02-Apr-2020 Instruction Type:Patient Education Patient Instructions Indication:Smoker Start:02-Apr-2020 Instruction Type:Provider Instructions for Treatment How to access health informa tion online Indication:BMI 23.0-23.9, adult Start:25-Jan-2020 Instruction Type:Patient Education How to access health informa tion online - Detail Indication:BMI 23.0-23.9, adult Start:25-Jan-2020 Instruction Type:Patient Education Patient Instructions Indication:BMI 23.0-23.9, adult Start:25-Jan-2020 Instruction Type:Provider Instructions for Treatment How to access health informa tion online Indication:Smoker Start:11-Jan-2020 Instruction Type:Patient Education How to access health informa tion online - Detail Indication:Smoker Start:11-Jan-2020 Instruction Type:Patient Education Patient Instructions Indication:Smoker Start:11-Jan-2020 Instruction Type:Provider Instructions for Treatment How to access health informa tion online Indication:Smoker Start:28-Dec-2019 Instruction Type:Patient Education How to access health informa tion online - Detail Indication:Smoker Start:28-Dec-2019 Instruction Type:Patient Education Patient Instructions Indication:Smoker Start:28-Dec-2019 Instruction Type:Provider Instructions for Treatment How to access health informa tion online Indication:Smoker Start:04-Oct-2019 Instruction Type:Patient Education How to access health informa tion online - Detail Indication:Smoker Start:04-Oct-2019 Instruction Type:Patient Education Patient Instructions Indication:Smoker Start:04-Oct-2019 Instruction Type:Provider Instructions for Treatment How to access health informa tion online Indication:Smoker Start:06-Sep-2019 Instruction Type:Patient Education How to access health informa tion online - Detail Indication:Smoker Start:06-Sep-2019 Instruction Type:Patient Education Patient Instructions Indication:Smoker Start:06-Sep-2019 Instruction Type:Provider Instructions for Treatment Patient Instructions Indication:Campylobacter gastroenteritis Start:09-Jan-2016 Instruction Type:Provider Instructions for Treatment How to access health informa tion online Indication:Abdominal pain, acute Start:01-Oct-2015 Instruction Type:Patient Education How to access health informa tion online - Detail Indication:Abdominal pain, acute Start:01-Oct-2015 Instruction Type:Patient Education Patient Instructions Indication:Abdominal pain, acute Start:01-Oct-2015 Instruction Type:Provider Instructions for Treatment Patient Instructions Indication:Emphysema/COPD Start:03-May-2014 Instruction Type:Provider Instructions for Treatment Patient Instructions Indication:Bipolar disorder Start:05-Apr-2014 Instruction Type:Provider Instructions for Treatment Patient Instructions Indication:Asthma Start:21-Nov-2013 Instruction Type:Provider Instructions for Treatment Name Dates Details Patient Instructions Indication:Smoker Start:23-Oct-2020 Instruction Type:Provider Instructions for Treatment How to Access Health Informa tion Online using Patient Portal and [employer] Apps Indication:Smoker Start:23-Oct-2020 Instruction Type:Patient Education How to access health informa tion online Indication:BMI 25.0-25.9,adult Start:25-Sep-2020 Instruction Type:Patient Education How to access health informa tion online - Detail Indication:BMI 25.0-25.9,adult Start:25-Sep-2020 Instruction Type:Patient Education Patient Instructions Indication:BMI 25.0-25.9,adult Start:25-Sep-2020 Instruction Type:Provider Instructions for Treatment How to access health informa tion online Indication:Sinus complaint Start:13-Aug-2020 Instruction Type:Patient Education How to access health informa tion online - Detail Indication:Sinus complaint Start:13-Aug-2020 Instruction Type:Patient Education Patient Instructions Indication:Sinus complaint Start:13-Aug-2020 Instruction Type:Provider Instructions for Treatment How to access health informa tion online Indication:Smoker Start:06-Jul-2020 Instruction Type:Patient Education How to access health informa tion online - Detail Indication:Smoker Start:06-Jul-2020 Instruction Type:Patient Education Patient Instructions Indication:Smoker Start:06-Jul-2020 Instruction Type:Provider Instructions for Treatment How to access health informa tion online Indication:Smoker Start:02-Apr-2020 Instruction Type:Patient Education How to access health informa tion online - Detail Indication:Smoker Start:02-Apr-2020 Instruction Type:Patient Education Patient Instructions Indication:Smoker Start:02-Apr-2020 Instruction Type:Provider Instructions for Treatment How to access health informa tion online Indication:BMI 23.0-23.9, adult Start:25-Jan-2020 Instruction Type:Patient Education How to access health informa tion online - Detail Indication:BMI 23.0-23.9, adult Start:25-Jan-2020 Instruction Type:Patient Education Patient Instructions Indication:BMI 23.0-23.9, adult Start:25-Jan-2020 Instruction Type:Provider Instructions for Treatment How to access health informa tion online Indication:Smoker Start:11-Jan-2020 Instruction Type:Patient Education How to access health informa tion online - Detail Indication:Smoker Start:11-Jan-2020 Instruction Type:Patient Education Patient Instructions Indication:Smoker Start:11-Jan-2020 Instruction Type:Provider Instructions for Treatment How to access health informa tion online Indication:Smoker Start:28-Dec-2019 Instruction Type:Patient Education How to access health informa tion online - Detail Indication:Smoker Start:28-Dec-2019 Instruction Type:Patient Education Patient Instructions Indication:Smoker Start:28-Dec-2019 Instruction Type:Provider Instructions for Treatment How to access health informa tion online Indication:Smoker Start:04-Oct-2019 Instruction Type:Patient Education How to access health informa tion online - Detail Indication:Smoker Start:04-Oct-2019 Instruction Type:Patient Education Patient Instructions Indication:Smoker Start:04-Oct-2019 Instruction Type:Provider Instructions for Treatment How to access health informa tion online Indication:Smoker Start:06-Sep-2019 Instruction Type:Patient Education How to access health informa tion online - Detail Indication:Smoker Start:06-Sep-2019 Instruction Type:Patient Education Patient Instructions Indication:Smoker Start:06-Sep-2019 Instruction Type:Provider Instructions for Treatment Patient Instructions Indication:Campylobacter gastroenteritis Start:09-Jan-2016 Instruction Type:Provider Instructions for Treatment How to access health informa tion online Indication:Abdominal pain, acute Start:01-Oct-2015 Instruction Type:Patient Education How to access health informa tion online - Detail Indication:Abdominal pain, acute Start:01-Oct-2015 Instruction Type:Patient Education Patient Instructions Indication:Abdominal pain, acute Start:01-Oct-2015 Instruction Type:Provider Instructions for Treatment Patient Instructions Indication:Emphysema/COPD Start:03-May-2014 Instruction Type:Provider Instructions for Treatment Patient Instructions Indication:Bipolar disorder Start:05-Apr-2014 Instruction Type:Provider Instructions for Treatment Patient Instructions Indication:Asthma Start:21-Nov-2013 Instruction Type:Provider Instructions for Treatment Name Dates Details Patient Instructions Indication:Smoker Start:23-Oct-2020 Instruction Type:Provider Instructions for Treatment How to Access Health Informa tion Online using Patient Portal and [employer] Apps Indication:Smoker Start:23-Oct-2020 Instruction Type:Patient Education How to access health informa tion online Indication:BMI 25.0-25.9,adult Start:25-Sep-2020 Instruction Type:Patient Education How to access health informa tion online - Detail Indication:BMI 25.0-25.9,adult Start:25-Sep-2020 Instruction Type:Patient Education Patient Instructions Indication:BMI 25.0-25.9,adult Start:25-Sep-2020 Instruction Type:Provider Instructions for Treatment How to access health informa tion online Indication:Sinus complaint Start:13-Aug-2020 Instruction Type:Patient Education How to access health informa tion online - Detail Indication:Sinus complaint Start:13-Aug-2020 Instruction Type:Patient Education Patient Instructions Indication:Sinus complaint Start:13-Aug-2020 Instruction Type:Provider Instructions for Treatment How to access health informa tion online Indication:Smoker Start:06-Jul-2020 Instruction Type:Patient Education How to access health informa tion online - Detail Indication:Smoker Start:06-Jul-2020 Instruction Type:Patient Education Patient Instructions Indication:Smoker Start:06-Jul-2020 Instruction Type:Provider Instructions for Treatment How to access health informa tion online Indication:Smoker Start:02-Apr-2020 Instruction Type:Patient Education How to access health informa tion online - Detail Indication:Smoker Start:02-Apr-2020 Instruction Type:Patient Education Patient Instructions Indication:Smoker Start:02-Apr-2020 Instruction Type:Provider Instructions for Treatment How to access health informa tion online Indication:BMI 23.0-23.9, adult Start:25-Jan-2020 Instruction Type:Patient Education How to access health informa tion online - Detail Indication:BMI 23.0-23.9, adult Start:25-Jan-2020 Instruction Type:Patient Education Patient Instructions Indication:BMI 23.0-23.9, adult Start:25-Jan-2020 Instruction Type:Provider Instructions for Treatment How to access health informa tion online Indication:Smoker Start:11-Jan-2020 Instruction Type:Patient Education How to access health informa tion online - Detail Indication:Smoker Start:11-Jan-2020 Instruction Type:Patient Education Patient Instructions Indication:Smoker Start:11-Jan-2020 Instruction Type:Provider Instructions for Treatment How to access health informa tion online Indication:Smoker Start:28-Dec-2019 Instruction Type:Patient Education How to access health informa tion online - Detail Indication:Smoker Start:28-Dec-2019 Instruction Type:Patient Education Patient Instructions Indication:Smoker Start:28-Dec-2019 Instruction Type:Provider Instructions for Treatment How to access health informa tion online Indication:Smoker Start:04-Oct-2019 Instruction Type:Patient Education How to access health informa tion online - Detail Indication:Smoker Start:04-Oct-2019 Instruction Type:Patient Education Patient Instructions Indication:Smoker Start:04-Oct-2019 Instruction Type:Provider Instructions for Treatment How to access health informa tion online Indication:Smoker Start:06-Sep-2019 Instruction Type:Patient Education How to access health informa tion online - Detail Indication:Smoker Start:06-Sep-2019 Instruction Type:Patient Education Patient Instructions Indication:Smoker Start:06-Sep-2019 Instruction Type:Provider Instructions for Treatment Patient Instructions Indication:Campylobacter gastroenteritis Start:09-Jan-2016 Instruction Type:Provider Instructions for Treatment How to access health informa tion online Indication:Abdominal pain, acute Start:01-Oct-2015 Instruction Type:Patient Education How to access health informa tion online - Detail Indication:Abdominal pain, acute Start:01-Oct-2015 Instruction Type:Patient Education Patient Instructions Indication:Abdominal pain, acute Start:01-Oct-2015 Instruction Type:Provider Instructions for Treatment Patient Instructions Indication:Emphysema/COPD Start:03-May-2014 Instruction Type:Provider Instructions for Treatment Patient Instructions Indication:Bipolar disorder Start:05-Apr-2014 Instruction Type:Provider Instructions for Treatment Patient Instructions Indication:Asthma Start:21-Nov-2013 Instruction Type:Provider Instructions for Treatment Name Dates Details Patient Instructions Indication:Smoker Start:23-Oct-2020 Instruction Type:Provider Instructions for Treatment How to Access Health Informa tion Online using Patient Portal and [employer] Indication:Smoker Start:23-Oct-2020 Instruction Type:Patient Education How to access health informa tion online Indication:BMI 25.0-25.9,adult Start:25-Sep-2020 Instruction Type:Patient Education How to access health informa tion online - Detail Indication:BMI 25.0-25.9,adult Start:25-Sep-2020 Instruction Type:Patient Education Patient Instructions Indication:BMI 25.0-25.9,adult Start:25-Sep-2020 Instruction Type:Provider Instructions for Treatment How to access health informa tion online Indication:Sinus complaint Start:13-Aug-2020 Instruction Type:Patient Education How to access health informa tion online - Detail Indication:Sinus complaint Start:13-Aug-2020 Instruction Type:Patient Education Patient Instructions Indication:Sinus complaint Start:13-Aug-2020 Instruction Type:Provider Instructions for Treatment How to access health informa tion online Indication:Smoker Start:06-Jul-2020 Instruction Type:Patient Education How to access health informa tion online - Detail Indication:Smoker Start:06-Jul-2020 Instruction Type:Patient Education Patient Instructions Indication:Smoker Start:06-Jul-2020 Instruction Type:Provider Instructions for Treatment How to access health informa tion online Indication:Smoker Start:02-Apr-2020 Instruction Type:Patient Education How to access health informa tion online - Detail Indication:Smoker Start:02-Apr-2020 Instruction Type:Patient Education Patient Instructions Indication:Smoker Start:02-Apr-2020 Instruction Type:Provider Instructions for Treatment How to access health informa tion online Indication:BMI 23.0-23.9, adult Start:25-Jan-2020 Instruction Type:Patient Education How to access health informa tion online - Detail Indication:BMI 23.0-23.9, adult Start:25-Jan-2020 Instruction Type:Patient Education Patient Instructions Indication:BMI 23.0-23.9, adult Start:25-Jan-2020 Instruction Type:Provider Instructions for Treatment How to access health informa tion online Indication:Smoker Start:11-Jan-2020 Instruction Type:Patient Education How to access health informa tion online - Detail Indication:Smoker Start:11-Jan-2020 Instruction Type:Patient Education Patient Instructions Indication:Smoker Start:11-Jan-2020 Instruction Type:Provider Instructions for Treatment How to access health informa tion online Indication:Smoker Start:28-Dec-2019 Instruction Type:Patient Education How to access health informa tion online - Detail Indication:Smoker Start:28-Dec-2019 Instruction Type:Patient Education Patient Instructions Indication:Smoker Start:28-Dec-2019 Instruction Type:Provider Instructions for Treatment How to access health informa tion online Indication:Smoker Start:04-Oct-2019 Instruction Type:Patient Education How to access health informa tion online - Detail Indication:Smoker Start:04-Oct-2019 Instruction Type:Patient Education Patient Instructions Indication:Smoker Start:04-Oct-2019 Instruction Type:Provider Instructions for Treatment How to access health informa tion online Indication:Smoker Start:06-Sep-2019 Instruction Type:Patient Education How to access health informa tion online - Detail Indication:Smoker Start:06-Sep-2019 Instruction Type:Patient Education Patient Instructions Indication:Smoker Start:06-Sep-2019 Instruction Type:Provider Instructions for Treatment Patient Instructions Indication:Campylobacter gastroenteritis Start:09-Jan-2016 Instruction Type:Provider Instructions for Treatment How to access health informa tion online Indication:Abdominal pain, acute Start:01-Oct-2015 Instruction Type:Patient Education How to access health informa tion online - Detail Indication:Abdominal pain, acute Start:01-Oct-2015 Instruction Type:Patient Education Patient Instructions Indication:Abdominal pain, acute Start:01-Oct-2015 Instruction Type:Provider Instructions for Treatment Patient Instructions Indication:Emphysema/COPD Start:03-May-2014 Instruction Type:Provider Instructions for Treatment Patient Instructions Indication:Bipolar disorder Start:05-Apr-2014 Instruction Type:Provider Instructions for Treatment Patient Instructions Indication:Asthma Start:21-Nov-2013 Instruction Type:Provider Instructions for Treatment Name Dates Details How to access health informa tion online Indication:Smoker Start:02-Apr-2020 Instruction Type:Patient Education How to access health informa tion online - Detail Indication:Smoker Start:02-Apr-2020 Instruction Type:Patient Education Patient Instructions Indication:Smoker Start:02-Apr-2020 Instruction Type:Provider Instructions for Treatment How to access health informa tion online Indication:BMI 23.0-23.9, adult Start:25-Jan-2020 Instruction Type:Patient Education How to access health informa tion online - Detail Indication:BMI 23.0-23.9, adult Start:25-Jan-2020 Instruction Type:Patient Education Patient Instructions Indication:BMI 23.0-23.9, adult Start:25-Jan-2020 Instruction Type:Provider Instructions for Treatment How to access health informa tion online Indication:Smoker Start:11-Jan-2020 Instruction Type:Patient Education How to access health informa tion online - Detail Indication:Smoker Start:11-Jan-2020 Instruction Type:Patient Education Patient Instructions Indication:Smoker Start:11-Jan-2020 Instruction Type:Provider Instructions for Treatment How to access health informa tion online Indication:Smoker Start:28-Dec-2019 Instruction Type:Patient Education How to access health informa tion online - Detail Indication:Smoker Start:28-Dec-2019 Instruction Type:Patient Education Patient Instructions Indication:Smoker Start:28-Dec-2019 Instruction Type:Provider Instructions for Treatment How to access health informa tion online Indication:Smoker Start:04-Oct-2019 Instruction Type:Patient Education How to access health informa tion online - Detail Indication:Smoker Start:04-Oct-2019 Instruction Type:Patient Education Patient Instructions Indication:Smoker Start:04-Oct-2019 Instruction Type:Provider Instructions for Treatment How to access health informa tion online Indication:Smoker Start:06-Sep-2019 Instruction Type:Patient Education How to access health informa tion online - Detail Indication:Smoker Start:06-Sep-2019 Instruction Type:Patient Education Patient Instructions Indication:Smoker Start:06-Sep-2019 Instruction Type:Provider Instructions for Treatment Patient Instructions Indication:Campylobacter gastroenteritis Start:09-Jan-2016 Instruction Type:Provider Instructions for Treatment How to access health informa tion online Indication:Abdominal pain, acute Start:01-Oct-2015 Instruction Type:Patient Education How to access health informa tion online - Detail Indication:Abdominal pain, acute Start:01-Oct-2015 Instruction Type:Patient Education Patient Instructions Indication:Abdominal pain, acute Start:01-Oct-2015 Instruction Type:Provider Instructions for Treatment Patient Instructions Indication:Emphysema/COPD Start:03-May-2014 Instruction Type:Provider Instructions for Treatment Patient Instructions Indication:Bipolar disorder Start:05-Apr-2014 Instruction Type:Provider Instructions for Treatment Patient Instructions Indication:Asthma Start:21-Nov-2013 Instruction Type:Provider Instructions for Treatment Name Dates Details How to access health informa tion online Indication:Smoker Start:06-Sep-2019 Instruction Type:Patient Education How to access health informa tion online - Detail Indication:Smoker Start:06-Sep-2019 Instruction Type:Patient Education Patient Instructions Indication:Smoker Start:06-Sep-2019 Instruction Type:Provider Instructions for Treatment Patient Instructions Indication:Campylobacter gastroenteritis Start:09-Jan-2016 Instruction Type:Provider Instructions for Treatment How to access health informa tion online Indication:Abdominal pain, acute Start:01-Oct-2015 Instruction Type:Patient Education How to access health informa tion online - Detail Indication:Abdominal pain, acute Start:01-Oct-2015 Instruction Type:Patient Education Patient Instructions Indication:Abdominal pain, acute Start:01-Oct-2015 Instruction Type:Provider Instructions for Treatment Patient Instructions Indication:Emphysema/COPD Start:03-May-2014 Instruction Type:Provider Instructions for Treatment Patient Instructions Indication:Bipolar disorder Start:05-Apr-2014 Instruction Type:Provider Instructions for Treatment Patient Instructions Indication:Asthma Start:21-Nov-2013 Instruction Type:Provider Instructions for Treatment Name Dates Details Patient Instructions Indication:Vitamin D deficiency Start:06-Nov-2020 Instruction Type:Provider Instructions for Treatment How to Access Health Informa tion Online using Patient Portal and [employer] Apps Indication:BMI 21.0-21.9, adult Start:06-Nov-2020 Instruction Type:Patient Education Patient Instructions Indication:Smoker Start:23-Oct-2020 Instruction Type:Provider Instructions for Treatment How to Access Health Informa tion Online using Patient Portal and [employer] Apps Indication:Smoker Start:23-Oct-2020 Instruction Type:Patient Education How to access health informa tion online Indication:BMI 25.0-25.9,adult Start:25-Sep-2020 Instruction Type:Patient Education How to access health informa tion online - Detail Indication:BMI 25.0-25.9,adult Start:25-Sep-2020 Instruction Type:Patient Education Patient Instructions Indication:BMI 25.0-25.9,adult Start:25-Sep-2020 Instruction Type:Provider Instructions for Treatment How to access health informa tion online Indication:Sinus complaint Start:13-Aug-2020 Instruction Type:Patient Education How to access health informa tion online - Detail Indication:Sinus complaint Start:13-Aug-2020 Instruction Type:Patient Education Patient Instructions Indication:Sinus complaint Start:13-Aug-2020 Instruction Type:Provider Instructions for Treatment How to access health informa tion online Indication:Smoker Start:06-Jul-2020 Instruction Type:Patient Education How to access health informa tion online - Detail Indication:Smoker Start:06-Jul-2020 Instruction Type:Patient Education Patient Instructions Indication:Smoker Start:06-Jul-2020 Instruction Type:Provider Instructions for Treatment How to access health informa tion online Indication:Smoker Start:02-Apr-2020 Instruction Type:Patient Education How to access health informa tion online - Detail Indication:Smoker Start:02-Apr-2020 Instruction Type:Patient Education Patient Instructions Indication:Smoker Start:02-Apr-2020 Instruction Type:Provider Instructions for Treatment How to access health informa tion online Indication:BMI 23.0-23.9, adult Start:25-Jan-2020 Instruction Type:Patient Education How to access health informa tion online - Detail Indication:BMI 23.0-23.9, adult Start:25-Jan-2020 Instruction Type:Patient Education Patient Instructions Indication:BMI 23.0-23.9, adult Start:25-Jan-2020 Instruction Type:Provider Instructions for Treatment How to access health informa tion online Indication:Smoker Start:11-Jan-2020 Instruction Type:Patient Education How to access health informa tion online - Detail Indication:Smoker Start:11-Jan-2020 Instruction Type:Patient Education Patient Instructions Indication:Smoker Start:11-Jan-2020 Instruction Type:Provider Instructions for Treatment How to access health informa tion online Indication:Smoker Start:28-Dec-2019 Instruction Type:Patient Education How to access health informa tion online - Detail Indication:Smoker Start:28-Dec-2019 Instruction Type:Patient Education Patient Instructions Indication:Smoker Start:28-Dec-2019 Instruction Type:Provider Instructions for Treatment How to access health informa tion online Indication:Smoker Start:04-Oct-2019 Instruction Type:Patient Education How to access health informa tion online - Detail Indication:Smoker Start:04-Oct-2019 Instruction Type:Patient Education Patient Instructions Indication:Smoker Start:04-Oct-2019 Instruction Type:Provider Instructions for Treatment How to access health informa tion online Indication:Smoker Start:06-Sep-2019 Instruction Type:Patient Education How to access health informa tion online - Detail Indication:Smoker Start:06-Sep-2019 Instruction Type:Patient Education Patient Instructions Indication:Smoker Start:06-Sep-2019 Instruction Type:Provider Instructions for Treatment Patient Instructions Indication:Campylobacter gastroenteritis Start:09-Jan-2016 Instruction Type:Provider Instructions for Treatment How to access health informa tion online Indication:Abdominal pain, acute Start:01-Oct-2015 Instruction Type:Patient Education How to access health informa tion online - Detail Indication:Abdominal pain, acute Start:01-Oct-2015 Instruction Type:Patient Education Patient Instructions Indication:Abdominal pain, acute Start:01-Oct-2015 Instruction Type:Provider Instructions for Treatment Patient Instructions Indication:Emphysema/COPD Start:03-May-2014 Instruction Type:Provider Instructions for Treatment Patient Instructions Indication:Bipolar disorder Start:05-Apr-2014 Instruction Type:Provider Instructions for Treatment Patient Instructions Indication:Asthma Start:21-Nov-2013 Instruction Type:Provider Instructions for Treatment Name Dates Details Patient Instructions Indication:Smoker Start:18-Dec-2020 Instruction Type:Provider Instructions for Treatment How to Access Health Informa tion Online using Patient Portal and [employer] Apps Indication:Smoker Start:18-Dec-2020 Instruction Type:Patient Education Patient Instructions Indication:Vitamin D deficiency Start:06-Nov-2020 Instruction Type:Provider Instructions for Treatment How to Access Health Informa tion Online using Patient Portal and [employer] Apps Indication:BMI 21.0-21.9, adult Start:06-Nov-2020 Instruction Type:Patient Education Patient Instructions Indication:Smoker Start:23-Oct-2020 Instruction Type:Provider Instructions for Treatment How to Access Health Informa tion Online using Patient Portal and [employer] Apps Indication:Smoker Start:23-Oct-2020 Instruction Type:Patient Education How to access health informa tion online Indication:BMI 25.0-25.9,adult Start:25-Sep-2020 Instruction Type:Patient Education How to access health informa tion online - Detail Indication:BMI 25.0-25.9,adult Start:25-Sep-2020 Instruction Type:Patient Education Patient Instructions Indication:BMI 25.0-25.9,adult Start:25-Sep-2020 Instruction Type:Provider Instructions for Treatment How to access health informa tion online Indication:Sinus complaint Start:13-Aug-2020 Instruction Type:Patient Education How to access health informa tion online - Detail Indication:Sinus complaint Start:13-Aug-2020 Instruction Type:Patient Education Patient Instructions Indication:Sinus complaint Start:13-Aug-2020 Instruction Type:Provider Instructions for Treatment How to access health informa tion online Indication:Smoker Start:06-Jul-2020 Instruction Type:Patient Education How to access health informa tion online - Detail Indication:Smoker Start:06-Jul-2020 Instruction Type:Patient Education Patient Instructions Indication:Smoker Start:06-Jul-2020 Instruction Type:Provider Instructions for Treatment How to access health informa tion online Indication:Smoker Start:02-Apr-2020 Instruction Type:Patient Education How to access health informa tion online - Detail Indication:Smoker Start:02-Apr-2020 Instruction Type:Patient Education Patient Instructions Indication:Smoker Start:02-Apr-2020 Instruction Type:Provider Instructions for Treatment How to access health informa tion online Indication:BMI 23.0-23.9, adult Start:25-Jan-2020 Instruction Type:Patient Education How to access health informa tion online - Detail Indication:BMI 23.0-23.9, adult Start:25-Jan-2020 Instruction Type:Patient Education Patient Instructions Indication:BMI 23.0-23.9, adult Start:25-Jan-2020 Instruction Type:Provider Instructions for Treatment How to access health informa tion online Indication:Smoker Start:11-Jan-2020 Instruction Type:Patient Education How to access health informa tion online - Detail Indication:Smoker Start:11-Jan-2020 Instruction Type:Patient Education Patient Instructions Indication:Smoker Start:11-Jan-2020 Instruction Type:Provider Instructions for Treatment How to access health informa tion online Indication:Smoker Start:28-Dec-2019 Instruction Type:Patient Education How to access health informa tion online - Detail Indication:Smoker Start:28-Dec-2019 Instruction Type:Patient Education Patient Instructions Indication:Smoker Start:28-Dec-2019 Instruction Type:Provider Instructions for Treatment How to access health informa tion online Indication:Smoker Start:04-Oct-2019 Instruction Type:Patient Education How to access health informa tion online - Detail Indication:Smoker Start:04-Oct-2019 Instruction Type:Patient Education Patient Instructions Indication:Smoker Start:04-Oct-2019 Instruction Type:Provider Instructions for Treatment How to access health informa tion online Indication:Smoker Start:06-Sep-2019 Instruction Type:Patient Education How to access health informa tion online - Detail Indication:Smoker Start:06-Sep-2019 Instruction Type:Patient Education Patient Instructions Indication:Smoker Start:06-Sep-2019 Instruction Type:Provider Instructions for Treatment Patient Instructions Indication:Campylobacter gastroenteritis Start:09-Jan-2016 Instruction Type:Provider Instructions for Treatment How to access health informa tion online Indication:Abdominal pain, acute Start:01-Oct-2015 Instruction Type:Patient Education How to access health informa tion online - Detail Indication:Abdominal pain, acute Start:01-Oct-2015 Instruction Type:Patient Education Patient Instructions Indication:Abdominal pain, acute Start:01-Oct-2015 Instruction Type:Provider Instructions for Treatment Patient Instructions Indication:Emphysema/COPD Start:03-May-2014 Instruction Type:Provider Instructions for Treatment Patient Instructions Indication:Bipolar disorder Start:05-Apr-2014 Instruction Type:Provider Instructions for Treatment Patient Instructions Indication:Asthma Start:21-Nov-2013 Instruction Type:Provider Instructions for Treatment Name Dates Details Patient Instructions Indication:Smoker Start:18-Dec-2020 Instruction Type:Provider Instructions for Treatment How to Access Health Informa tion Online using Patient Portal and [employer] Apps Indication:Smoker Start:18-Dec-2020 Instruction Type:Patient Education Patient Instructions Indication:Vitamin D deficiency Start:06-Nov-2020 Instruction Type:Provider Instructions for Treatment How to Access Health Informa tion Online using Patient Portal and [employer] Apps Indication:BMI 21.0-21.9, adult Start:06-Nov-2020 Instruction Type:Patient Education Patient Instructions Indication:Smoker Start:23-Oct-2020 Instruction Type:Provider Instructions for Treatment How to Access Health Informa tion Online using Patient Portal and [employer] Apps Indication:Smoker Start:23-Oct-2020 Instruction Type:Patient Education How to access health informa tion online Indication:BMI 25.0-25.9,adult Start:25-Sep-2020 Instruction Type:Patient Education How to access health informa tion online - Detail Indication:BMI 25.0-25.9,adult Start:25-Sep-2020 Instruction Type:Patient Education Patient Instructions Indication:BMI 25.0-25.9,adult Start:25-Sep-2020 Instruction Type:Provider Instructions for Treatment How to access health informa tion online Indication:Sinus complaint Start:13-Aug-2020 Instruction Type:Patient Education How to access health informa tion online - Detail Indication:Sinus complaint Start:13-Aug-2020 Instruction Type:Patient Education Patient Instructions Indication:Sinus complaint Start:13-Aug-2020 Instruction Type:Provider Instructions for Treatment How to access health informa tion online Indication:Smoker Start:06-Jul-2020 Instruction Type:Patient Education How to access health informa tion online - Detail Indication:Smoker Start:06-Jul-2020 Instruction Type:Patient Education Patient Instructions Indication:Smoker Start:06-Jul-2020 Instruction Type:Provider Instructions for Treatment How to access health informa tion online Indication:Smoker Start:02-Apr-2020 Instruction Type:Patient Education How to access health informa tion online - Detail Indication:Smoker Start:02-Apr-2020 Instruction Type:Patient Education Patient Instructions Indication:Smoker Start:02-Apr-2020 Instruction Type:Provider Instructions for Treatment How to access health informa tion online Indication:BMI 23.0-23.9, adult Start:25-Jan-2020 Instruction Type:Patient Education How to access health informa tion online - Detail Indication:BMI 23.0-23.9, adult Start:25-Jan-2020 Instruction Type:Patient Education Patient Instructions Indication:BMI 23.0-23.9, adult Start:25-Jan-2020 Instruction Type:Provider Instructions for Treatment How to access health informa tion online Indication:Smoker Start:11-Jan-2020 Instruction Type:Patient Education How to access health informa tion online - Detail Indication:Smoker Start:11-Jan-2020 Instruction Type:Patient Education Patient Instructions Indication:Smoker Start:11-Jan-2020 Instruction Type:Provider Instructions for Treatment How to access health informa tion online Indication:Smoker Start:28-Dec-2019 Instruction Type:Patient Education How to access health informa tion online - Detail Indication:Smoker Start:28-Dec-2019 Instruction Type:Patient Education Patient Instructions Indication:Smoker Start:28-Dec-2019 Instruction Type:Provider Instructions for Treatment How to access health informa tion online Indication:Smoker Start:04-Oct-2019 Instruction Type:Patient Education How to access health informa tion online - Detail Indication:Smoker Start:04-Oct-2019 Instruction Type:Patient Education Patient Instructions Indication:Smoker Start:04-Oct-2019 Instruction Type:Provider Instructions for Treatment How to access health informa tion online Indication:Smoker Start:06-Sep-2019 Instruction Type:Patient Education How to access health informa tion online - Detail Indication:Smoker Start:06-Sep-2019 Instruction Type:Patient Education Patient Instructions Indication:Smoker Start:06-Sep-2019 Instruction Type:Provider Instructions for Treatment Patient Instructions Indication:Campylobacter gastroenteritis Start:09-Jan-2016 Instruction Type:Provider Instructions for Treatment How to access health informa tion online Indication:Abdominal pain, acute Start:01-Oct-2015 Instruction Type:Patient Education How to access health informa tion online - Detail Indication:Abdominal pain, acute Start:01-Oct-2015 Instruction Type:Patient Education Patient Instructions Indication:Abdominal pain, acute Start:01-Oct-2015 Instruction Type:Provider Instructions for Treatment Patient Instructions Indication:Emphysema/COPD Start:03-May-2014 Instruction Type:Provider Instructions for Treatment Patient Instructions Indication:Bipolar disorder Start:05-Apr-2014 Instruction Type:Provider Instructions for Treatment Patient Instructions Indication:Asthma Start:21-Nov-2013 Instruction Type:Provider Instructions for Treatment Name Dates Details Patient Instructions Indication:Smoker Start:18-Dec-2020 Instruction Type:Provider Instructions for Treatment How to Access Health Informa tion Online using Patient Portal and [employer] Apps Indication:Smoker Start:18-Dec-2020 Instruction Type:Patient Education Patient Instructions Indication:Vitamin D deficiency Start:06-Nov-2020 Instruction Type:Provider Instructions for Treatment How to Access Health Informa tion Online using Patient Portal and [employer] Apps Indication:BMI 21.0-21.9, adult Start:06-Nov-2020 Instruction Type:Patient Education Patient Instructions Indication:Smoker Start:23-Oct-2020 Instruction Type:Provider Instructions for Treatment How to Access Health Informa tion Online using Patient Portal and [employer] Apps Indication:Smoker Start:23-Oct-2020 Instruction Type:Patient Education How to access health informa tion online Indication:BMI 25.0-25.9,adult Start:25-Sep-2020 Instruction Type:Patient Education How to access health informa tion online - Detail Indication:BMI 25.0-25.9,adult Start:25-Sep-2020 Instruction Type:Patient Education Patient Instructions Indication:BMI 25.0-25.9,adult Start:25-Sep-2020 Instruction Type:Provider Instructions for Treatment How to access health informa tion online Indication:Sinus complaint Start:13-Aug-2020 Instruction Type:Patient Education How to access health informa tion online - Detail Indication:Sinus complaint Start:13-Aug-2020 Instruction Type:Patient Education Patient Instructions Indication:Sinus complaint Start:13-Aug-2020 Instruction Type:Provider Instructions for Treatment How to access health informa tion online Indication:Smoker Start:06-Jul-2020 Instruction Type:Patient Education How to access health informa tion online - Detail Indication:Smoker Start:06-Jul-2020 Instruction Type:Patient Education Patient Instructions Indication:Smoker Start:06-Jul-2020 Instruction Type:Provider Instructions for Treatment How to access health informa tion online Indication:Smoker Start:02-Apr-2020 Instruction Type:Patient Education How to access health informa tion online - Detail Indication:Smoker Start:02-Apr-2020 Instruction Type:Patient Education Patient Instructions Indication:Smoker Start:02-Apr-2020 Instruction Type:Provider Instructions for Treatment How to access health informa tion online Indication:BMI 23.0-23.9, adult Start:25-Jan-2020 Instruction Type:Patient Education How to access health informa tion online - Detail Indication:BMI 23.0-23.9, adult Start:25-Jan-2020 Instruction Type:Patient Education Patient Instructions Indication:BMI 23.0-23.9, adult Start:25-Jan-2020 Instruction Type:Provider Instructions for Treatment How to access health informa tion online Indication:Smoker Start:11-Jan-2020 Instruction Type:Patient Education How to access health informa tion online - Detail Indication:Smoker Start:11-Jan-2020 Instruction Type:Patient Education Patient Instructions Indication:Smoker Start:11-Jan-2020 Instruction Type:Provider Instructions for Treatment How to access health informa tion online Indication:Smoker Start:28-Dec-2019 Instruction Type:Patient Education How to access health informa tion online - Detail Indication:Smoker Start:28-Dec-2019 Instruction Type:Patient Education Patient Instructions Indication:Smoker Start:28-Dec-2019 Instruction Type:Provider Instructions for Treatment How to access health informa tion online Indication:Smoker Start:04-Oct-2019 Instruction Type:Patient Education How to access health informa tion online - Detail Indication:Smoker Start:04-Oct-2019 Instruction Type:Patient Education Patient Instructions Indication:Smoker Start:04-Oct-2019 Instruction Type:Provider Instructions for Treatment How to access health informa tion online Indication:Smoker Start:06-Sep-2019 Instruction Type:Patient Education How to access health informa tion online - Detail Indication:Smoker Start:06-Sep-2019 Instruction Type:Patient Education Patient Instructions Indication:Smoker Start:06-Sep-2019 Instruction Type:Provider Instructions for Treatment Patient Instructions Indication:Campylobacter gastroenteritis Start:09-Jan-2016 Instruction Type:Provider Instructions for Treatment How to access health informa tion online Indication:Abdominal pain, acute Start:01-Oct-2015 Instruction Type:Patient Education How to access health informa tion online - Detail Indication:Abdominal pain, acute Start:01-Oct-2015 Instruction Type:Patient Education Patient Instructions Indication:Abdominal pain, acute Start:01-Oct-2015 Instruction Type:Provider Instructions for Treatment Patient Instructions Indication:Emphysema/COPD Start:03-May-2014 Instruction Type:Provider Instructions for Treatment Patient Instructions Indication:Bipolar disorder Start:05-Apr-2014 Instruction Type:Provider Instructions for Treatment Patient Instructions Indication:Asthma Start:21-Nov-2013 Instruction Type:Provider Instructions for Treatment Name Dates Details How to access health informa tion online Indication:Sinus complaint Start:13-Aug-2020 Instruction Type:Patient Education How to access health informa tion online - Detail Indication:Sinus complaint Start:13-Aug-2020 Instruction Type:Patient Education Patient Instructions Indication:Sinus complaint Start:13-Aug-2020 Instruction Type:Provider Instructions for Treatment How to access health informa tion online Indication:Smoker Start:06-Jul-2020 Instruction Type:Patient Education How to access health informa tion online - Detail Indication:Smoker Start:06-Jul-2020 Instruction Type:Patient Education Patient Instructions Indication:Smoker Start:06-Jul-2020 Instruction Type:Provider Instructions for Treatment How to access health informa tion online Indication:Smoker Start:02-Apr-2020 Instruction Type:Patient Education How to access health informa tion online - Detail Indication:Smoker Start:02-Apr-2020 Instruction Type:Patient Education Patient Instructions Indication:Smoker Start:02-Apr-2020 Instruction Type:Provider Instructions for Treatment How to access health informa tion online Indication:BMI 23.0-23.9, adult Start:25-Jan-2020 Instruction Type:Patient Education How to access health informa tion online - Detail Indication:BMI 23.0-23.9, adult Start:25-Jan-2020 Instruction Type:Patient Education Patient Instructions Indication:BMI 23.0-23.9, adult Start:25-Jan-2020 Instruction Type:Provider Instructions for Treatment How to access health informa tion online Indication:Smoker Start:11-Jan-2020 Instruction Type:Patient Education How to access health informa tion online - Detail Indication:Smoker Start:11-Jan-2020 Instruction Type:Patient Education Patient Instructions Indication:Smoker Start:11-Jan-2020 Instruction Type:Provider Instructions for Treatment How to access health informa tion online Indication:Smoker Start:28-Dec-2019 Instruction Type:Patient Education How to access health informa tion online - Detail Indication:Smoker Start:28-Dec-2019 Instruction Type:Patient Education Patient Instructions Indication:Smoker Start:28-Dec-2019 Instruction Type:Provider Instructions for Treatment How to access health informa tion online Indication:Smoker Start:04-Oct-2019 Instruction Type:Patient Education How to access health informa tion online - Detail Indication:Smoker Start:04-Oct-2019 Instruction Type:Patient Education Patient Instructions Indication:Smoker Start:04-Oct-2019 Instruction Type:Provider Instructions for Treatment How to access health informa tion online Indication:Smoker Start:06-Sep-2019 Instruction Type:Patient Education How to access health informa tion online - Detail Indication:Smoker Start:06-Sep-2019 Instruction Type:Patient Education Patient Instructions Indication:Smoker Start:06-Sep-2019 Instruction Type:Provider Instructions for Treatment Patient Instructions Indication:Campylobacter gastroenteritis Start:09-Jan-2016 Instruction Type:Provider Instructions for Treatment How to access health informa tion online Indication:Abdominal pain, acute Start:01-Oct-2015 Instruction Type:Patient Education How to access health informa tion online - Detail Indication:Abdominal pain, acute Start:01-Oct-2015 Instruction Type:Patient Education Patient Instructions Indication:Abdominal pain, acute Start:01-Oct-2015 Instruction Type:Provider Instructions for Treatment Patient Instructions Indication:Emphysema/COPD Start:03-May-2014 Instruction Type:Provider Instructions for Treatment Patient Instructions Indication:Bipolar disorder Start:05-Apr-2014 Instruction Type:Provider Instructions for Treatment Patient Instructions Indication:Asthma Start:21-Nov-2013 Instruction Type:Provider Instructions for Treatment Summary Purpose Family History No Family History Records FoundNo Family History Records FoundNo Family History Records FoundNo Family History Records Found No data available for this section No Family History Records Found Advance Directives No Advanced Directives Records FoundLatest Code Status on File Code Status Date Activated Date Inactivated Comments Full Code 01/01/2020 10:46 PM Documents on File Type Date Recorded Patient Package Sorter Expl anation Advance Directive(s) 03/05/2016 8:01 AM Advance Directive(s) 02/18/2016 10:20 AM Hospital Course * Owen Le MD - 01/03/2020 10:05 AM EDT Discharge Summary Raquel Robledo : 1975 ADMIT DATE: 01/01/2020 DISCHARGE DATE: 01/03/2020 PRIMARY CARE PHYSICIAN: No primary care provider on file. VISIT STATUS: Observation CODE STATUS: Full Code DISCHARGE DIAGNOSES: Active Problems: Right sided weakness Resolved Problems: * No resolved hospital problems. * Debility and falls R sided weakness; no acute stroke fibromyalgia HOSPITAL COURSE: 44F [facility], conversion disorder, fibromyalgia, anxiety, tobacco abuse, bipolar disorder, PTSD, migraines presented to [facility] ER 12/31 with R sided weakness/numbness. Pt states last Thursday (12/26) she woke up with R face/arm/leg numbness and some blurring of vision in her R eye as well as change with speech (slurring/stuttering). She then had worsening of symptoms throughout the day and R side becameweak. She states an associate she lives with came home and found her disoriented and called EMS and she was taken to [facility]. She apparently had CT/CTA/MRI of brain/neck at [place] that was normal per pt. There is some data in chart regarding testing in CareEverywhere regarding CT and C TA although I do not see any results regarding an MRI. Pt states she was discharged from [facility] same day with plans to follow up with PCP. She went to PCP office the next day (12/27) to have blood work drawn, apparently staff there was concerned and recommended pt go to [facility]. Pt was admitted to [facility] and had normal testing and was discharged on Friday 12/29. On the way home from the hospital pt states she had a seizure where she lost consciousness, had shaking that lasted a fewminutes, was sleepy afterwards. Thursday pt had 2 falls at home and due to this came back to [facility] ER. She states since falling yesterday she has RUE pain and is requesting pain medication and phenergan.Since last Thursday, she states her weakness/numbness has been persistent, although her R eye visualchanges/speech abnormality has been fluctuant. Of note- states her PCP told her to be on an abx fora sinus infection on Thursday. MRI and CT performed, no acute pathology. Seen by PT/oT and recommended placement in SNF. Patient refused, requesting Dc to Home. Will Dc to home with OP PT/OT. Patient to f/u with PCP on DC. SIGNIFICANT DIAGNOSTIC STUDIES: above CONSULTANTS: above RECOMMENDED NEXT STEPS: See PCP Physical Exam: General appearance: alert, cooperative and no distress Mental Status: oriented to person, place and time and normal affect Lungs: clear to auscultation bilaterally, normal effort Heart: regular rate and rhythm, no murmur Abdomen: soft, nontender, nondistended, bowel sounds present, no masses Extremities: no edema, redness, tenderness in the calves Skin: no gross lesions, rashes DISCHARGE MEDICATIONS: Raquel Robledo Home Medication Instructions ZULEMA:[id number] Printed on:01/03/20 1005 Medication Information Cholecalciferol (VITAMIN D3) 250 MCG (44391 UT) TABS Take 1 capsule by mouth doxycycline hyclate (VIBRAMYCIN) 100 MG capsule Take 100 mg by mouth 2 times daily gabapentin (NEURONTIN) 100 MG capsule Take 200 mg by mouth 2 times daily. HYDROcodone-acetaminophen (NORCO) 5-325 MG per tablet Take 1 tablet by mouth every 4 hours as needed for Pain. meloxicam (MOBIC) 15 MG tablet Take 15 mg by mouth daily prazosin (MINIPRESS) 1 MG capsule Take 2 mg by mouth nightly promethazine (PHENERGAN) 12.5 MG tablet Take 12.5 mg by mouth every 6 hours as needed for Nausea DIET: DIET GENERAL; ACTIVITY: No heavy lifting. up with assist COMPLEXITY OF FOLLOW UP: [] Moderate Complexity: follow up within 7-14 calendar days (41052) [] Severe Complexity: follow up within 7 calendar days (83917) FOLLOW UP TESTING, PENDING RESULTS OR REFERRALS AT TRANSITIONAL CARE VISIT: [] Yes [] No PENDING STUDIES: No DISPOSITION: Home FACILITY/HOME CARE AGENCY NAME: Follow up with No follow-up provider specified. on INSTRUCTIONS TO MA/SW: Please call patient on day after discharge (must document patient contacted within 2 business days of discharge). FOLLOW UP QUESTIONS FOR MA/SW: 1. Did you get medications filled and taking them as instructed from discharge? 2. Are you following your discharge instructions from your hospital stay? 3. Please confirm patient is scheduled for a follow up appointment within the above time frame. DISCHARGE TIME: > 30 minutes SIGNED: Owen Le MD 01/03/2020, 10:05 AM documented in this encounter Discharge Instructions * Discharge Instr - INA* Noy Leach RN - 01/03/2020 8:35 AM EDT Continuity of Care Form Patient Name: Raquel Robledo : 1975 Admit date: 01/01/2020 Discharge date: Code Status Order: Full Code Advance Directives: Advance Care Flowsheet Documentation Date/Time Healthcare Directive Type of Healthcare Directive Copy in Chart Healthcare Agent Appointed Healthcare Agent's Name Healthcare Agent's Phone Number 01/01/20 2339 No, patient does not have an advance directive for healthcare treatment -- -- -- -- -- Admitting Physician: Lisbet Mhor DO PCP: No primary care provider on file. Discharging Nurse: Discharging Hospital Unit/Room#: 1323/1323A Discharging Unit Phone Number: Emergency Contact: Extended Emergency Contact Information Primary Emergency Contact: elle [place] Relation: Other Preferred language: [employer]an [employer] Instructor needed? No Past Surgical History: Past Surgical History: Procedure Laterality Date ABDOMINAL WALL SURGERY SECTION CHOLECYSTECTOMY COLONOSCOPY DILATION AND CURETTAGE OF UTERUS X 2 PARTIAL HYSTERECTOMY PATELLA SURGERY cyst removed from under knee cap UPPER GASTROINTESTINAL ENDOSCOPY Immunization History: There is no immunization history on file for this patient. Active Problems: Patient Active Problem List Diagnosis Code Right sided weakness R53.1 Isolation/Infection: Isolation No Isolation Patient Infection Status None to display Nurse Assessment: Last Vital Signs: BP 112/72 Pulse 94 Temp 97.1 F (36.2 C) (Temporal) Resp 18 Ht 5' 4 (1.626 m) Wt 136 lb (61.7 kg) SpO2 96% BMI 23.34 kg/m Last documented pain score (0-10 scale): Pain Level: ( 8.5 all of R side) Last Weight: Wt Readings from Last 1 Encounters: 01/01/20 136 lb (61.7 kg) Mental Status: {IP PT MENTAL STATUS:} IV Access: { INA IV ACCESS:648808409} Nursing Mobility/ADLs: Walking {CHP DME ADLs:905994133} Transfer {CHP DME ADLs:406732684} Bathing {CHP DME ADLs:613339479} Dressing {CHP DME ADLs:134596875} Toileting {CHP DME ADLs:774917620} Feeding {CHP DME ADLs:817339225} Nutrition Educator {CHP DME ADLs:480546330} Med Delivery { INA MED Delivery:631039807} Wound Care Documentation and Therapy: Elimination: Continence: Bowel: {YES / NO:} Bladder: {YES / NO:} Urinary Catheter: {Urinary Catheter:814333950} Colostomy/Ileostomy/Ileal Conduit: {YES / NO:} Date of Last BM: No intake or output data in the 24 hours ending 01/03/20 0835 No intake/output data recorded. Safety Concerns: { INA Safety Concerns:387569864} Impairments/Disabilities: { INA Impairments/Disabilities:982652589} Nutrition Therapy: Current Nutrition Therapy: { INA Diet List:797473818} Routes of Feeding: {[facility] DME Other Feedings:543746299} Liquids: {[facility] liquid thickness:25678} Daily Fluid Restriction: {CHP DME Yes amt example:871021180} Last Modified Barium Swallow with Video (Video Swallowing Test): {Done Not Done Date:} Treatments at the Time of Hospital Discharge: Respiratory Treatments: Oxygen Therapy: {Therapy; copd oxygen:26472} Ventilator: { CC Vent List:494865853} Rehab Therapies: {THERAPEUTIC INTERVENTION:3191833328} Weight Bearing Status/Restrictions: { CC Weight Bearin} Other Medical Equipment (for information only, NOT a DME order): {EQUIPMENT:584174330} Other Treatments: Patient's personal belongings (please select all that are sent with patient): {CHP DME Belongings:472099474} RN SIGNATURE: {Esignature:989544428} CASE MANAGEMENT/SOCIAL WORK SECTION Inpatient Status Date: Readmission Risk Assessment Score: Readmission Risk Risk of Unplanned Readmission: 0 Discharging to Facility/ Agency Name: Address: Phone: Fax: Dialysis Facility (if applicable) Name: Address: Dialysis Schedule: Phone: Fax: Deli Cook/Perfumer signature: {Esignature:779175402} PHYSICIAN SECTION Prognosis: {Prognosis:4248381491} Condition at Discharge: { Patient Condition:194534453} Rehab Potential (if transferring to Rehab): {Prognosis:6222327206} Recommended Labs or Other Treatments After Discharge: Physician Certification: I certify the above information and transfer of Raquel Robledo is necessary for the continuing treatment of the diagnosis listed and that she requires {Admit to Appropriate Level of Care:62271} for {GREATER/LESS:716863702} 30 days. Update Admission H&P: {CHP DME Changes in HandP:351728255} PHYSICIAN SIGNATURE: {Esignature:318082881} * Additional Instructions* Owen Le MD - 01/03/2020 Your instructions: Recommended diet: regular diet Recommended activity: activity as tolerated GENERAL ZONES GREEN ZONE: All Clear- Your Symptoms Are Under Control No recurrence of symptoms that led to hospitalization Able to do usual activities No fever No chest pain No shortness of breath This Means You Should: Continue taking your medications as prescribed Continue activity as tolerated Keep all doctor appointments YELLOW ZONE: Caution Recurrence of symptoms that led to hospitalization Fever of 100 degrees or higher Increased fatigue or restlessness Intolerant side-effects of medications Uneasy feeling or that something is wrong This Means You Should: Call your doctor for further instructions RED ZONE: Medical Alert Severe or unrelieved shortness of breath at rest Unrelieved chest pain Confusion or you can't think clearly This Means You Should Call 911 Immediately documented in this encounter History of Present Illness * Manuel Leos, OT - 01/03/2020 12:39 PM EDT Occupational Therapy Occupational Therapy Initial Assessment Date: 01/03/2020 Patient Name: Raquel Robledo : 1975 Date of Service: 01/03/2020 Discharge Recommendations: Home with Home health OT, Home with assist PRN Assessment Assessment: Admitted with R sided weakness, was recently seen at [facility] for the same symptoms, imaging negative at those facilities and per chart MRI and CT performed, no acute pathologyat [facility]. Pt indep at baseline, also R handed. On eval pt performing feeding and LBD mod indep. Pt completed fxl transfers and mob in room using therapist for support with CGA d/t pt reported weakness in the RLE (she will be getting cane). Pt RUE presents with subtle weakness compared to LUE (4-/5 inRUE and 4+/5 in LUE). Pt has no acute OT needs, will recommend home therapies. Prognosis: Good Decision Making: Low Complexity OT Education: OT Role;Plan of Care;Transfer Training REQUIRES OT FOLLOW UP: No Safety Devices Safety Devices in place: Yes Type of devices: Call light within reach;Patient at risk for falls;Left in bed;Nurse notified;Bed alarm in place Patient Diagnosis(es): The primary encounter diagnosis was Right sided weakness. A diagnosis of Falls frequently was also pertinent to this visit. has a past medical history of Anxiety, Asthma, Bipolar 1 disorder ([facility]), Chronic back pain, COPD (chronic obstructive pulmonary disease) ([facility]), Diffuse myofascial pain syndrome, Fibromyalgia, primary, IBS (irritable bowel syndrome), Migraine, PTSD (post-traumatic stress disorder), and Seizure-like activity ([facility]). has a past surgical history that includes Patella surgery; Cholecystectomy; section; Dilation and curettage of uterus; partial hysterectomy (cervix not removed); Upper gastrointestinal endoscopy; Colonoscopy; and Abdominal wall surgery. Restrictions Restrictions/Precautions Restrictions/Precautions: Fall Risk Position Activity Restriction Other position/activity restrictions: no bed alarm Subjective General Chart Reviewed: Yes Patient assessed for rehabilitation services?: Yes Family / Caregiver Present: No Social/Functional History Social/Functional History Lives With: Friend(s) Type of Home: Trailer Home Layout: One level Home Access: Stairs to enter without rails Bathroom Shower/Tub: Tub/Shower unit Bathroom Toilet: Standard Bathroom Equipment: (none) Bathroom Accessibility: Accessible Home Equipment: (none) Receives Help From: Friend(s) ADL Assistance: Independent Homemaking Assistance: Independent Ambulation Assistance: Independent Transfer Assistance: Independent Active Pharmacist In Charge: No Patient's Pharmacist In Charge Info: friends Mode of Transportation: Car Education: n/a Occupation: Unemployed Type of occupation: n/a Leisure & Hobbies: n/a 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 Comments: DCP- TBD Objective Orientation Overall Orientation Status: Within Normal Limits Balance Sitting Balance: Independent Standing Balance: Modified independent Functional Mobility Functional - Mobility Device: (therapist) Assist Level: Contact guard assistance ADL LE Dressing: Modified independent Tone RUE RUE Tone: Normotonic Tone LUE LUE Tone: Normotonic Bed mobility Supine to Sit: Modified independent Sit to Supine: Modified independent Scooting: Modified independent Transfers Sit to stand: Modified independent Stand to sit: Modified independent LUE AROM (degrees) LUE AROM : WFL RUE AROM (degrees) RUE AROM : WFL LUE Strength Gross LUE Strength: WFL(see assessment) RUE Strength Gross RUE Strength: WFL Plan G-Code OutComes Score [facility] Score [facility] Inpatient Daily Activity Raw Score: 24 (01/03/20 1228) [facility] Inpatient ADL T-Scale Score : 57.54 (01/03/20 1228) ADL Inpatient CMS 0-100% Score: 0 (01/03/20 1228) ADL Inpatient CMS G-Code Modifier : CH (01/03/20 122) Goals Therapy Time Individual Concurrent Group Co-treatment Time In 1154 Time Out 1206 Minutes 12 Manuel Leos OT Goals and/or treatment plan was established in collaboration with patient/family/other representatives. * Suki Padron - 01/03/2020 7:34 AM EDT .Nutrition rescreen completed. Chart reviewed. Patient to be monitored and followed by the diet community development technician.Suki Padron DT * Elaine Chi, RETAIL RESET MERCHANDISER - 01/02/2020 12:21 PM EDT Speech Language Pathology Facility/Department: [facility] CLINICAL BEDSIDE SWALLOW EVALUATION NAME: Raquel Robledo : 1975 ADMISSION DATE: 01/01/2020 ADMITTING DIAGNOSIS: has Right sided weakness on their problem list. Recent Chest Xray/CT of Chest: IMPRESSION: 1. No acute findings Date of Eval: 01/02/2020 Evaluating Therapist: Elaine Chi Current Diet level: Current Diet : Dysphagia Pureed (Dysphagia I) Current Liquid Diet : Mildly Thick ([place]) Pain: None reported per pt Reason for Referral Raquel Robledo was referred for a bedside swallow evaluation to assess the efficiency of her swallow function, identify signs and symptoms of aspiration and make recommendations regarding safe dietary consistencies, effective compensatory strategies, and safe eating environment. Per ED Notes Raquel Robledo is a 44 y.o. female who presents to the emergency department with right-sided weakness and numbness. Patient states that the symptoms started 6 days ago. [facility]. Patient does have some of her paperwork from that admission which shows a negative head CT, CTA head and neck. She also reports that she had an magnetic resonance imaging of her brain at that time that she was told was negative. Patient was then discharged. Went to go see her primary care doctor who still thought that she needed to be admitted at this point was sent [facility]. Patient then went to [facility]. She was discharged 2 days ago from that admission. She does not have records from that admission. Patient states that she has worsening right sided weakness and numbness. This does appear to be intermittent though and has waves of worsening and improving. She also states that she has had slurred speech since Thursday again intermittent. At this point patient's speech is more stuttering been slurred. She fell twice because of the weakness. Patient states that she has no help at home. Patient states that she was told that these were complex migraines but denies any headaches during any of these symptoms. Impression Dysphagia Impression : No concern for dysphagia clinically. Regular textures, thin liquid diet. Treatment Plan Requires RETAIL RESET MERCHANDISER Intervention: No Duration/Frequency of Treatment: n/a Recommended Diet and Intervention Diet Solids Recommendation: Regular Liquid Consistency Recommendation: Thin Recommended Form of Meds: PO General Chart Reviewed: Yes Comments: Pt alert, cooperative Respiratory Status: Room air Breath Sounds: (WDL) O2 Device: None (Room air) Follows Directions: Complex Dentition: Adequate Patient Positioning: Upright in bed Baseline Vocal Quality: Normal Volitional Cough: (produced cough on command) Prior Dysphagia History: Pt denies hx dysphagia Consistencies Administered: Thin - cup;Dysphagia Pureed (Dysphagia I);Reg solid Oral Mechanism/Cranial Nerve Exam Pt passed oral mechanism/cranial nerve exam for CN V, CN VII, CN IX/X, CN XI and CN XII. Oral Phase Dysfunction Oral Phase Oral Phase: WFL Indicators of Pharyngeal Phase Dysfunction Pharyngeal Phase Pharyngeal Phase: WFL Prognosis Individuals consulted Consulted and agree with results and recommendations: Patient;RN Education Patient Education: d/w pt, RN Patient Education Response: Verbalizes understanding Safety Devices in place: Yes Type of devices: Left in bed;Nurse notified;Call light within reach Therapy Time RETAIL RESET MERCHANDISER Individual Minutes Time In: 1135 Time Out: 1155 Minutes: 20 RETAIL RESET MERCHANDISER Total Treatment Time Timed Code Treatment Minutes: 20 Minutes Total Treatment Time: 20 Elaine Chi MA, CCC-RETAIL RESET MERCHANDISER 01/02/2020 12:21 PM * Liseth Latham, PT - 01/02/2020 11:50 AM EDT Physical Therapy Facility/Department: [facility] Initial Assessment NAME: Raquel Robledo : 1975 Date of Service: 01/02/2020 Discharge Recommendations: Subacute/Detention Facility Assessment Body structures, Functions, Activity limitations: Decreased functional mobility ;Decreased ROM;Decreased strength;Decreased sensation Assessment: pt w/ above deficits. pt is self-limiting and reluctant to participate in therapy. Noted several inconsistencies w/ exam. pt unable to move RLE on command but observed indep lifting leg onto bed. Rec SNF unless pt able to ambulate safely. pt unable to tolerate 3 hrs of therapy per day. Treatment Diagnosis: R sided weakness; falls Prognosis: Guarded Decision Making: Low Complexity PT Education: Goals;PT Role;Plan of Care;General Safety REQUIRES PT FOLLOW UP: Yes Activity Tolerance Activity Tolerance: Patient limited by pain Activity Tolerance: self-limiting Patient Diagnosis(es): The primary encounter diagnosis was Right sided weakness. A diagnosis of Falls frequently was also pertinent to this visit. has a past medical history of Anxiety, Asthma, Bipolar 1 disorder ([facility]), Chronic back pain, COPD (chronic obstructive pulmonary disease) ([facility]), Diffuse myofascial pain syndrome, Fibromyalgia, primary, IBS (irritable bowel syndrome), Migraine, PTSD (post-traumatic stress disorder), and Seizure-like activity ([facility]). has a past surgical history that includes Patella surgery; Cholecystectomy; section; Dilation and curettage of uterus; partial hysterectomy (cervix not removed); Upper gastrointestinal endoscopy; Colonoscopy; and Abdominal wall surgery. Restrictions Restrictions/Precautions Restrictions/Precautions: Fall Risk Position Activity Restriction Other position/activity restrictions: no bed alarm Vision/Hearing Subjective General Chart Reviewed: Yes Patient assessed for rehabilitation services?: Yes Additional Pertinent Hx: PTSD, fibromyalgia, COPD, bipolar Family / Caregiver Present: No Diagnosis: R sided weakness; fell x2 Follows Commands: Impaired Other (Comment): resistant to participate Subjective Subjective: pt lying in bed w/ R elbow extended. Reluctantly agrees to PT w/ encouragement. States Why are you asking me all these questions? Does not remember why she fell. Pain Screening Patient Currently in Pain: Yes Pain Assessment Pain Level: ( 8.5 all of R side) Vital Signs Patient Currently in Pain: Yes Pre Treatment Pain Screening Intervention List: Patient able to continue with treatment Comments / Details: pt upset they are not giving her any pain meds until neuro sees her Social/Functional History Social/Functional History Lives With: (lives w/ an associate to whom she wishes they were (communicated this w/ nsg staff)) Type of Home: Trailer Home Layout: One level Home Access: Stairs to enter without rails( I don't know ) Bathroom Shower/Tub: Tub/Shower unit Bathroom Toilet: Standard Bathroom Equipment: (none) Bathroom Accessibility: Accessible Home Equipment: (none) Receives Help From: Friend(s) ADL Assistance: Independent Homemaking Assistance: Independent Ambulation Assistance: Independent Transfer Assistance: Independent Active Pharmacist In Charge: No Patient's Pharmacist In Charge Info: friends Mode of Transportation: Car Education: n/a Occupation: Unemployed Type of occupation: n/a Leisure & Hobbies: n/a 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 Comments: DCP- TBD Objective PROM RLE (degrees) RLE PROM: WFL RLE General PROM: flinches in pain w/ movement AROM RLE (degrees) RLE General AROM: unable to flex hip while seated (observed lifting leg into bed indep), knee LAQ ~25%, ankle DF to neutral (inconsistent) AROM LLE (degrees) LLE AROM : WFL Strength RLE Comment: unable to test Strength LLE Strength LLE: WFL Comment: except hip flex 3/5 Sensation Overall Sensation Status: Impaired(intact to light touch; c/o numbness RLE/RUE) Bed mobility Supine to Sit: Supervision Sit to Supine: Supervision Scooting: Modified independent(no use of RUE) Comment: observed pt indep lifting RLE into bed w/o use of arms Transfers Sit to Stand: Contact guard assistance Stand to sit: Contact guard assistance Comment: pt stood on LLE only, pt observed holding RLE up off of ground (knee/hip flexed) Ambulation Ambulation?: No(pt refused I will fall - refused device) Balance Posture: Fair Sitting - Static: Good Sitting - Dynamic: Good Standing - Static: Fair;+ Plan Plan Times per week: 3-5x Plan weeks: 2 Current Treatment Recommendations: Strengthening, ROM, Balance Training, Functional Mobility Training, Transfer Training, Safety Education & Training, Equipment Evaluation, Education, & procurement, Gait Training, Stair training Safety Devices Type of devices: All fall risk precautions in place, Call light within reach, Patient at risk for falls, Left in bed, Nurse notified(refused gait belt, refused chair) AM-PAC Score AM-PAC Inpatient Mobility Raw Score : 12 (01/02/20 102) AM-PAC Inpatient T-Scale Score : 35.33 (01/02/201020) Mobility Inpatient CMS 0-100% Score: 68.66 (01/02/201020) Mobility Inpatient CMS G-Code Modifier : CL (01/02/201020) Goals Short term goals Time Frame for Short term goals: 2 wks Short term goal 1: bed mobility mod indep Short term goal 2: transfers mod indep Short term goal 3: amb 150' w/ least restrictive device mod indep Short term goal 4: negotiate 4 stairs supv Patient Goals Patient goals : none stated Therapy Time Individual Concurrent Group Co-treatment Time In 0845 Time Out 0855 Minutes 10 Patient s Physical Therapy Plan of Care supervision is transferred to [facility] Rehab Department Physical Therapist. Goals and/or treatment plan was established in collaboration with patient/family/other representatives. Plan to be activated only if patient is admitted or for assessing discharge needs. Liseth Latham PT * Owen Le MD - 01/02/2020 11:38 AM EDT Hospitalist Progress Note 01/02/2020 11:38 AM Subjective: Admit Date: 01/01/2020 PCP: No primary care provider on file. Interval History: resting in bed, no acute distress. Does not want dysphagia diet as ordered; MRI pending. No overnight issues. Denies chest pain, sob, abdominal pain, nausea, vomiting, diarrhea, constipation, fevers, or chills. DIET GENERAL; Dysphagia Pureed; Mildly Thick ([place]) Date 01/02/20 0000 - 01/02/20 2359 Shift [id number] 4434-0278 9944-4643 24 Hour Total INTAKE Shift Total(mL/kg) OUTPUT Urine(mL/kg/hr) 1(0) 1 Shift Total(mL/kg) 1(0) 1(0) Weight (kg) 61.7 61.7 61.7 61.7 Patient Vitals for the past 96 hrs (Last 3 readings): Weight 01/01/20 1811 136 lb (61.7 kg) Medications: sodium chloride flush 10 mL Intravenous 2 times per day enoxaparin 40 mg Subcutaneous Daily prazosin 1 mg Oral Nightly gabapentin 200 mg Oral BID Recent Labs 01/01/203 01/02/20 0027 WBC 8.8 8.6 HGB 16.4* 14.6 PLT 446* 382 Recent Labs 01/01/20185201/02/20 0027 NA 136 137 K 3.9 3.3* CL 104 108* CO2 24 22 BUN 7 7 CREATININE 0.66 0.55 GLUCOSE 97 96 Recent Labs 01/01/201852 AST 21 ALT 13 BILITOT 0.5 ALKPHOS 103 No results found for: TRIG, HDL, LDLCALC, CHOL Recent Labs 01/01/201852 INR 1.1 Recent Labs 01/01/201852 TROPONINI <0.012 Objective: Vitals: BP (!) 98/52 Pulse 62 Temp 97.7 F (36.5 C) (Temporal) Resp 20 Ht 5' 4 (1.626 m) Wt 136 lb (61.7 kg) SpO2 96% BMI 23.34 kg/m Pulse Ox: SpO2 Av.6 % Min: 93 % Max: 99 % Supplemental O2: PHYSICAL EXAM: GENERAL: Patient is a well-developed, well-nourished female in no acute distress, alert and oriented x3, appropriate and pleasant conversation. HEAD: Normocephalic, atraumatic. EYES: Pupils equal, round and reactive to light and accommodation, extraocular movements intact. ENT: Moist mucous membranes. No erythema is noted. NECK: Supple. No masses. No lymphadenopathy. CARDIOVASCULAR: Regular rate and rhythm, s1,2 no murmur PULMONARY: Lungs are clear to auscultation bilaterally. ABDOMEN: Soft, nontender, nondistended. Positive bowel sounds. MUSCULOSKELETAL: Strength 5/5 bilaterally in all extremities; R side effort poor/inconsistent. Pulses 2+ NEUROLOGIC: Cranial nerves II through XII grossly intact. No focal deficits are noted. DATA: CBC: Recent Labs 01/01/20185201/02/20 0027 WBC 8.8 8.6 RBC 5.32* 4.71 HGB 16.4* 14.6 HCT 48.4* 43.5 MCV 91.1 92.3 RDW 13.3 13.0 PLT 446* 382 BMP: Recent Labs 01/01/20185201/02/20 0027 NA 136 137 K 3.9 3.3* CL 104 108* CO2 24 22 BUN 7 7 CREATININE 0.66 0.55 GLUCOSE 97 96 CALCIUM 9.9 8.8 ANIONGAP 9 7 LIVER PROFILE: Recent Labs 01/01/201852 AST 21 ALT 13 BILITOT 0.5 ALKPHOS 103 LABALBU 4.4 PROT 7.9 PT/INR: Recent Labs 01/01/201852 PROTIME 10.9 INR 1.1 CARDIAC ENZYMES: Recent Labs 03/15/20 1853 TROPONINI <0.012 Procalcitonin: No results found for: PROCAL Urine Culture: No results found for this or any previous visit. I reviewed: [x] laboratory results [x] radiographic results At the time of today's encounter. Pt was advised of the results. Assessment Active Problems: Right sided weakness Resolved Problems: * No resolved hospital problems. * #Right sided weakness, right facial numbness, loss right peripheral vision - inconsistent exam; 3rd admission for similar complaint per patient; recently discharged for [place] - obtain records; MRI brain - PT/OT - speech eval #debility and falls - PRN analgesia - PT/OT #fibromyalgia - OP followup DVT prophylaxis: lovenox -PT/OT eval / increase activity-encourage ambulation -am labs, replace lytes prn -vitals per routine -home meds as ordered -see additional orders Plan PT/oT, MRI brain, neuro eval and recs Dispo: anticipate DC to home vs SNF <24-48H pending MRI, PT recs. See orders, continue POC Advance Directive: Full Code Owen Le [facility] Hospitalist documented in this encounter Assessments Diagnosis Right sided weakness Muscle weakness (generalized) Falls frequently Personal history of fall Additional Source Comments INFORMATION SOURCE (unrecogn ized section and content) DATE CREATED AUTHOR AUTHOR'S ORGANIZ ATION 03/15/2022 [facility] Lisa sanchez [place] DATE CREATED AUTHOR AUTHOR'S ORGANIZ ATION 10/01/2022 [facility] DATE CREATED AUTHOR AUTHOR'S ORGANIZ ATION 03/28/2023 [facility] DATE CREATED AUTHOR AUTHOR'S ORGANIZ ATION 09/19/2023 [facility] ([place]) Reason for Visit (unrecogniz ed section and content) Source Comments (unrecognize d section and content) In the event this informatio n is protected by the Federal Confidentiality of Alcohol and Drug Abuse Patient Records regulations: The Federal rules restrict any use of the information to criminally investigate or prosecute any alcohol or drug abuse patient.[facility] the event this information is protected by the Federal Confidentiality of Alcohol and Drug Abuse Patient Records regulations: The Federal rules restrict any use of the information to criminally investigate or prosecute any alcohol or drug abuse patient.[facility] Care Teams (unrecognized sec tion and content) Manager Competitive Intelligence Relationship Specialty Start Date End Date Wesly Trujillo [address] [place] [address] PCP - General Internal Medicine 09/27/18 Care Team (unrecognized sect ion and content) Care Team Personnel Name: DAVID DAWSON APRN - MACHINE PIE MAKER Position: P4 Advanced Practice Nurse Med Service: Employed Provider Member Role: Primary Care Physician Address: Address: [address] [place] [address] Care Team Related Persons Name: RAD EAST Care Team Personnel Name: DAVID DAWSON APRN - MACHINE PIE MAKER Position: P4 Advanced Practice Nurse Member Role: Primary Care Physician Address: Address: [address] [place] [address]- Care Team Related Persons Name: [employer] E[facility] Care Team Personnel Name: DAVID DAWSON APRN - MACHINE PIE MAKER Position: P4 Advanced Practice Nurse Member Role: Primary Care Physician Address: Address: [address] [place] [address] Care Team Related Persons Name: [facility] EAST Care Team Personnel Name: DAVID DAWSON CLOTHING BUSHELER - MACHINE PIE MAKER Position: P4 Advanced Practice Nurse Member Role: Primary Care Physician Address: Address: [address] [place], [place] [id number] [place] [address] Care Team Related Persons Name: RAD EAST Care Team Personnel Name: DAVID DAWSON APRN - MACHINE PIE MAKER Position: P4 Advanced Practice Nurse Member Role: Primary Care Physician Address: Address: [address] [place] [address] Care Team Related Persons Name: RAD EAST Care Team Personnel Name: DAVID DAWSON CLOTHING BUSHELER - MACHINE PIE MAKER Position: P4 Advanced Practice Nurse Member Role: Primary Care Physician Address: Address: [address] [place] [address] Care Team Related Persons Name: DEBRA MULLER Name: PAT AHUMADA Address: Home [address] [place] [address] [address] [place], [place] [id number] Address: Temporary [address] [place] [address] [address] [place], [place] [id number] Care Team Personnel Name: DAVID DAWSON CLOTHING BUSHELER - MACHINE PIE MAKER Position: P4 Advanced Practice Nurse Member Role: Primary Care Physician Address: Address: [address] [place] [address] Care Team Related Persons Name: DEBRA MULLER Name: PAT AHUMADA Address: [address] [place], [place] [id number] Address: Temporary [address] [place], [place] [address] [place], [place] [id number] FOR RECORDS PERTAINING TO PATIENTS WHO ARE OR HAVE BEEN ENROLLED IN A CHEMICAL DEPENDENCY/SUBSTANCEABUSE PROGRAM, SOME INFORMATION MAY BE OMITTED. This clinical summary was aggregated from multiple sources. Caution should be exercised in using it in the provision of clinical care. This summary normalizes information from multiple sources, and as a consequence, information in this document may materially change the coding, format and clinical context of patient data. In addition, data may be omitted in some cases. CLINICAL DECISIONS SHOULD BE BASED ON THE PRIMARY CLINICAL RECORDS. [facility] [employer] provides no warranty or guarantee of the accuracy or completeness of information in this document.
[2023-10-15 20:39] VITALS: BP 117/85; PULSE 85; RESP 16; TEMP 35.8; O2SAT 93
--- NOTE | 2023-10-15 20:47 | ED.VIS.FALL ---
HPI HPI - Fall History of Present Illness Chief Complaint: Fall Informant: patient Narrative Narrative: Patient states she has chronic neuropathy in her right lower extremity and uses a cane to walk. She was going upstairs to her apartment, and her right leg gave out on her as she was turning to find her cane that she had apparently dropped, this caused her to fall down 5 or 6 steps injuring her right cheek, her right upper extremity where she has pain throughout the entire extremity, as well as both knees that are bruised. She has no loss of consciousness, vision change, epistaxis, oral injury/bleeding, headache, or new focal neurologic symptoms. She states she was able to stand and walk as usual with her cane since the injury. She denies any new neck or back pain. She has fibromyalgia and admits that everything is very sensitive. She has pain from the MCPJ's 2-4 on the right hand all the way up to the shoulder. [facility] Medical History Abdominal pain Adrenal insufficiency Anxiety and depression Aphagia Arthritis Asthma Back pain Borderline personality disorder Cancer Chronic fatigue syndrome Colitis Contusion, hip Conversion disorder COPD (chronic obstructive pulmonary disease) CVA (cerebral vascular accident) Diarrhea Difficulty swallowing Emphysema/COPD Expressive aphasia Facial droop Fibromyalgia Frequent falls Gait disturbance Gastric reflux History of Crohn's disease History of edema History of migraine History of pain when walking History of pseudoseizure History of TIAs Hyperlipidemia Hypoglycemia Hypotension IBS (irritable bowel syndrome) Ileum ulcer Injury of head and neck Irritable bowel syndrome Ischemic stroke Kidney stones Left hip pain Marijuana use Migraines Night terrors, adult Paresthesia of right arm Post-menopausal Right arm weakness Right hip pain RLS (restless legs syndrome) Seasonal allergies Shortness of breath on exertion Smoker Stroke Stroke-like symptoms Stroke/cerebrovascular accident Swallowing dysfunction Tobacco use Vitamin D deficiency Wears dentures Home Medications cholecalciferol (vitamin D3) 125 mcg (5,000 unit) disintegrating tablet 10,000 unit PO DAILY supplement 12/27/19 [History Last Taken 12/01/22] prazosin 2 mg capsule 2 mg PO QHS 09/20/20 [History Last Taken 12/01/22] vitamin E (dl, acetate) 45 mg (100 unit) capsule 45 mg PO DAILY 07/01/21 [History Last Taken 12/01/22] biotin 10 mg tablet 10 mg PO DAILY 10/15/22 [History Last Taken 12/02/22] fludrocortisone 0.1 mg tablet 0.1 mg PO DAILY HYPOTENSION 10/15/22 [History Last Taken 12/01/22] albuterol sulfate 90 mcg/actuation aerosol inhaler 2 puff inhalation 4X/DAY PRN ASTHMA 01/08/23 [History Last Taken Unknown] atorvastatin 10 mg tablet 10 mg PO DAILY 01/08/23 [History Last Taken Unknown] promethazine 12.5 mg tablet 12.5 mg PO Q8H PRN Nausea 01/08/23 [History Last Taken Unknown] triamcinolone acetonide 55 mcg nasal spray aerosol 2 spray intranasal DAILY ALLERGIES 01/08/23 [History Last Taken Unknown] turmeric root extract 500 mg capsule 500 mg PO DAILY 01/08/23 [History Last Taken Unknown] vitamin B complex 1 tab PO DAILY supplement 01/08/23 [History Last Taken Unknown] diphenoxylate-atropine 2.5 mg-0.025 mg tablet (Lomotil) 1 tab PO Q6H PRN Diarrhea 01/12/23 [History Last Taken Unknown] loperamide 2 mg capsule 2 mg PO Q6H PRN Diarrhea 01/12/23 [History Last Taken Unknown] tizanidine 4 mg capsule (Zanaflex) 4 mg PO BID muscle spasticity 01/12/23 [History Last Taken Unknown] calcium 300 mg chewable tablet 600 mg PO DAILY 02/18/23 [History Last Taken Unknown] fexofenadine 60 mg tablet (Jess Allergy) 60 mg PO BID 02/18/23 [History Last Taken Unknown] multivitamin 1 tab PO DAILY 02/18/23 [History Last Taken Unknown] pantoprazole 40 mg tablet,delayed release (Protonix) 40 mg PO BID #60 tabs 02/26/23 [Rx Last Taken Unknown] amoxicillin 500 mg capsule 1,000 mg (2 x 500 mg) PO Q12H #40 caps 05/13/23 [Rx Last Taken Unknown] rifabutin 150 mg capsule 150 mg PO BID #20 caps 05/13/23 [Rx Last Taken Unknown] scopolamine base 1 mg over 3 days transdermal patch 1 patch transdermal Q3D #10 ea 05/19/23 [Rx Last Taken Unknown] fluconazole 200 mg tablet (Diflucan) 200 mg PO ONCE #1 TAB 06/17/23 [Rx Last Taken Unknown] Allergy/AdvReac Type Severity Reaction Status Date / Time bee pollen Allergy Severe Anaphylaxis Verified 10/15/23 19:35 coconut Allergy Intermediate Eye Verified 10/15/23 19:35 swelling, Rash metronidazole [From Flagyl] Allergy Intermediate Vomiting Verified 10/15/23 19:35 aspirin Allergy Shortness Verified 10/15/23 19:35 of breath bupropion HCl Allergy Other Verified 10/15/23 19:35 [From Wellbutrin] divalproex sodium Allergy Rash Verified 10/15/23 19:35 [From Depakote] doxycycline Allergy Rash Verified 10/15/23 19:35 Gadolinium-MRI Contrast Allergy Hives Verified 10/15/23 19:35 Medium [Gadolinium-Contrast Medium - MRI] ketorolac [From Toradol] Allergy Shortness Verified 10/15/23 19:35 of breath lamotrigine [From Lamictal] Allergy Rash Verified 10/15/23 19:35 latex Allergy Hives Verified 10/15/23 19:35 phenytoin sodium Allergy Hives Verified 10/15/23 19:35 [From Dilantin] phenytoin sodium extended Allergy Hives Verified 10/15/23 19:35 [From Dilantin] pineapple Allergy Swelling, Verified 08/06/23 20:29 Rash corn AdvReac Severe Laryngospas Verified 10/15/23 19:37 ms egg AdvReac Mild Other Verified 10/15/23 19:35 erythromycin base AdvReac Nausea/Vom/ Verified 10/15/23 19:35 Diarrhea quetiapine fumarate AdvReac Other Verified 10/15/23 19:35 [From Seroquel] Sulfa (Sulfonamide AdvReac Vomiting Verified 10/15/23 19:35 Antibiotics) varenicline tartrate AdvReac Vomiting Verified 10/15/23 19:35 [From Chantix] Family History Mother Diabetes Heart disease Hypertension HLD (hyperlipidemia) Depression Myocardial infarction Multiple sclerosis Father , 56 Diabetes Heart disease Hypertension HLD (hyperlipidemia) Asthma Myocardial infarction Sister Cancer Diabetes Grandfather Diabetes Surgical History H/O section H/O knee surgery History of cholecystectomy History of dilation and curettage Hx of colonoscopy Hx of tooth extraction S/P partial hysterectomy Social History adopted: Yes household members: none housing: house current occupational status: disabled Smoking Status: Former smoker alcohol intake: current alcohol intake frequency: a few times a month Alcohol type: wine substance use type: marijuana caffeine: Yes Type: coffee Number of servings: 1 what type of physical activity do you participate in: other details: home exercises, fishing do you feel safe at home: Yes ROS ROS ED Constitutional Constitutional ED: Denies chills or fever(s) Eyes Eyes: Denies change in vision or diplopia ENT ENT ED: Reports facial pain; Denies ear pain, epistaxis or rhinorrhea Cardiovascular Cardiovascular: Denies chest pain or palpitations Respiratory/Chest Respiratory/Chest: Denies cough or dyspnea Gastrointestinal Gastrointestinal: Denies abdominal pain, diarrhea, melena, nausea or vomiting Genitourinary Genitourinary ED: Denies dysuria or hematuria Musculoskeletal Musculoskeletal: Reports extremity pain; Denies back pain or neck pain Integumentary Reports Abrasions; Denies abscess, laceration or rash Neurologic Neurologic: Denies confusion, headache(s), paresthesias or weakness EXAM Physical Exam Const Vital Signs: 10/15/23 19:37 10/15/23 19:40 10/15/23 20:35 Temperature 96.3 F L 96.3 F L Temperature Source Temporal Temporal Pulse Rate 98 98 Respiratory Rate 18 18 Respiratory Effort Normal Respiratory Depth Normal Respiratory Pattern Normal Blood Pressure 113/85 H 113/85 H Blood Pressure Mean 94 94 Pulse Ox 99 99 Oxygen Delivery Method Room Air Room Air Room Air 10/15/23 20:39 Temperature 96.5 F L Temperature Source Pulse Rate 85 Respiratory Rate 16 Respiratory Effort Respiratory Depth Respiratory Pattern Blood Pressure 117/85 H Blood Pressure Mean 95 Pulse Ox 93 Oxygen Delivery Method Positive well nourished and well developed General Appearance ED: well developed and NAD HEENT Reports nasal mucous membranes and turbinates normal HEENT Narrative: Minor superficial abrasion to the right cheek without bony maxilla tenderness or any other facial tenderness or signs of trauma. Face and Sinus: Negative for facial tenderness Eyes PERRL and EOMs intact bilaterally Visual Acuity: other Other Details: no entrapment or pain with extraocular movements Neck full ROM and supple General: Negative for tenderness Chest Wall inspection of chest normal and palpation of chest normal Chest: symmetrical chest wall rise; Negative for crepitus or tenderness Resp normal respiratory effort and clear to auscultation bilaterally Percussion: other equal BS bilat Cardio no murmurs Rate: regular rate Rhythm: regular rhythm GI normal to inspection, nondistended, normoactive bowel sounds, soft to palpation and non-tender Back/Spine normal ROM Cervical Spine: Negative for cervical spine tenderness Thoracic Spine / Upper Back: Negative for thoracic spinal tenderness Lumbar Spine / Lower Back: Negative for lumbar spinal tenderness Extremity normal to inspection and full ROM Extremity Narrative: Patient is tender throughout most of the right upper extremity, including MCP 2-4, distal radius and ulna, every bony prominence of the elbow, the mid humeral shaft, and every area of the right shoulder without significant tenderness at the acromioclavicular joint. She has full range of motion throughout the entire right upper extremity. Full range throughout the left which is nontender, full range throughout the legs with pain in both knees, she has chronic pain in the right knee, she has some minor abrasions and contusions to the anterior knees bilaterally without any bony tenderness or effusion. No focal pain in either hip with ranging. Neurovascular intact distally both upper and lower extremities. General Extremety ED: Yes tenderness Neuro oriented x3, CN's II-XII intact bilaterally, moves all extremities, no focal motor deficits and no sensory deficits noted Bharati Coma Scale: document GCS findings Spontaneous Obeys Commands Oriented 15 Sensorium / Orientation: awake and alert Psych mental status grossly normal and thought process normal Mood & Affect: anxious Skin Lesions: no lesions Rashes: no rashes Trauma: abrasion MDM MDM MDM Narrative Medical decision making narrative: X-rays were obtained of all of the following and interpreted by myself as follows: Right hand 3 views negative for acute fracture Right forearm 2 views negative for acute fracture Right humerus 2 view negative for acute fracture Right shoulder 3 view negative for acute fracture Left hip and pelvis 3 view negative for acute fracture (ordered by nursing via protocol) Patient was given tramadol for pain I do not think she needs a prescription for further narcotics, supportive care advised she is reassured and comfortable going home. Radiography Diagnostic Testing: Clinical Impression(s) from Imaging Studies Forearm X-Ray 10/15/23 16:45 IMPRESSION: Normal x-ray examination of the radius and ulna. Electronically Signed: Stone Jimenez MD at 20:27 EST , Hip/Pelvis X-Ray 10/15/23 19:45 IMPRESSION: Normal x-ray examination of the pelvis and hip. Electronically Signed: Stone Jimenez MD at 20:29 EST , Shoulder X-Ray 10/15/23 19:45 IMPRESSION: Normal x-ray examination of the shoulder. Electronically Signed: Stone Jimenez MD at 20:30 EST , Discharge Plan Triage Chief Complaint: Fall ED Provider: Mitch Enrique Dx/Rx/DC Orders Clinical Impression: Fall on steps, Abrasion of face, Contusion of left knee, Contusion of right knee, Contusion of right upper extremity Instructions: ED Contusion, Upper Extremity Prescriptions: No Action vitamin E (dl, acetate) 45 mg (100 unit) capsule 45 mg PO DAILY promethazine 12.5 mg tablet 12.5 mg PO Q8H PRN (Reason: Nausea) albuterol sulfate 90 mcg/actuation HFA aerosol inhaler 2 puff inhalation 4X/DAY PRN (Reason: ASTHMA) triamcinolone acetonide 55 mcg aerosol,spray 2 spray intranasal DAILY Rx Instructions: administer into each nostril atorvastatin 10 mg tablet 10 mg PO DAILY turmeric root extract 500 mg capsule 500 mg PO DAILY loperamide 2 mg capsule 2 mg PO Q6H PRN (Reason: Diarrhea) diphenoxylate-atropine [Lomotil] 2.5-0.025 mg tablet 1 tab PO Q6H PRN (Reason: Diarrhea) cholecalciferol (vitamin D3) 5,000 UNIT tablet,disintegrating 10,000 unit PO DAILY vitamin B complex Tablet 1 tab PO DAILY prazosin 2 MG capsule 2 mg PO QHS tizanidine [Zanaflex] 4 mg capsule 4 mg PO BID biotin 10 mg Tablet 10 mg PO DAILY fludrocortisone 0.1 mg tablet 0.1 mg PO DAILY Patient Comments: TAKE 1 TABLET BY MOUTH EVERY DAY multivitamin [Multi-Day] Tablet 1 tab PO DAILY fexofenadine [Jess Allergy] 60 mg Tablet 60 mg PO BID calcium 300 mg Tablet,Chewable 600 mg PO DAILY pantoprazole [Protonix] 40 mg tablet,delayed release (DR/EC) 40 mg PO BID Qty: 60 0RF rifabutin 150 mg capsule 150 mg PO BID Qty: 20 0RF Rx Instructions: take one capsule twice a day for 10 days amoxicillin 500 mg capsule 1,000 mg PO Q12H Qty: 40 0RF Rx Instructions: Take 2 pills (total of 1,000mg) in the morning and then take another 2 pills (total of 1,000mg) in the evening for a total of 4 pills a day (total of 2,000mg of amoxicillin) for 10 days scopolamine base 1 mg over 3 days patch 3 day 1 patch transdermal Q3D Qty: 10 1RF Rx Instructions: change patch and alternate sites every 3 days. fluconazole [Diflucan] 200 mg tablet 200 mg PO ONCE Qty: 1 0RF Primary Care Provider: Tej Whitehead NP Referrals: Tej Whitehead NP, ACUTE CARE NURSING ASSISTANT-C [Primary Care Provider] - As Needed Disposition Disposition: Home, Self Care
[2023-10-15] MEDS: traMADol 50 MG Tablet PO (20:57)
--- NOTE | 2023-10-15 21:00 | RAD_ITS ---
STUDY: X-RAY - RIGHT HAND REASON FOR EXAM: Female, 48 years old. injury TECHNIQUE: 3 view(s) of the hand. COMPARISON: None. FINDINGS: Normal radiocarpal articulation. Normal distal radioulnar joint. Normal visualized carpal bones. Normal carpal articulations Normal carpometacarpal articulation of the thumb. Normal second through fifth carpometacarpal joints. Normal metacarpi. Normal metacarpophalangeal joint of the thumb. Normal interphalangeal joint of the thumb. Normal proximal and distal phalanges of the thumb. Normal metacarpophalangeal joints of the second through fifth fingers. Normal proximal and distal interphalangeal joints of the second through fifth fingers. Normal phalanges of the second through fifth fingers. The soft tissue structures are unremarkable. RAD/Hand Min 3 Views IMPRESSION: Normal x-ray examination of the hand. Electronically Signed: Stone Jimenez MD at 21:22 EST ,
--- NOTE | 2023-10-15 21:00 | RAD_ITS ---
STUDY: X-RAY - RIGHT HUMERUS REASON FOR EXAM: Female, 48 years old. injury TECHNIQUE: 2 view(s) of the humerus. COMPARISON: Chest x-ray dated December 02, 2022 FINDINGS: Normal visualized humerus. There is no demonstrated fracture or osseous destructive process. There is no demonstrated soft tissue abnormality. RAD/Humerus min 2 Views IMPRESSION: Normal x-ray examination of the humerus. Electronically Signed: Stone Jimenez MD at 21:23 EST ,
== END 2023-10-15 21:31 | disposition home or self-care (01) ==
PROVIDERS: Emergency Provider Emergency Medicine; PCP Nurse Practitioner Family; Visit Provider Emergency Medicine
DX: S00.81XA Abrasion of other part of head, initial encounter (principal); S80.02XA Contusion of left knee, initial encounter; S80.01XA Contusion of right knee, initial encounter; W10.9XXA Fall (on) (from) unspecified stairs and steps, initial encounter; Z86.73 Personal history of transient ischemic attack (TIA), and cerebral infarction without residual deficits; Z87.891 Personal history of nicotine dependence
CPT/HCPCS: 73030; 73060; 73090; 73130; 73502; 99282

== ENCOUNTER 2023-11-11 12:30 | Day surgery (SDC) | payer MEDICARE, MEDICAID, SELFPAY ==
[2023-11-11] VITALS (10 sets, daily range): BP systolic 91–115; BP diastolic 53–73; PULSE 52–74; RESP 14–18; TEMP 36.1–36.8; O2SAT 93–100; BMI 25.0
[2023-11-11] MEDS: Lactated Ringers 1,000 ML 15 ML IV (12:45)
--- NOTE | 2023-11-11 14:07 | PCM.HP.STD ---
HPI - General HPI Narrative AYAKA BRANTLEY, is a 48 F who presents for right endoscopic carpal tunnel release. no changes to h and p. rab and post op medications and restrictions discussed. right wrist marked. no further questions, will proceed. MR#: [id number] Acct: [id number] Name: AYAKA BRANTLEY Rep #: [id number] : 1975 Provider: Dr. Leighton Del Rosario MD Age/Sex: 48/F [place] [facility] [place] Status: Signed Intake Vital Signs 09/27/2312:46 10/06/2313:03 10/15/2319:37 10/16/2312:53 Height 5 ft 3 in 5 ft 3 in 5 ft 4 in 5 ft 4 in Weight: 146 lb BMI 25.0 Intake Visit Reasons: BL HANDS Accompanied by: Self Allergies bee pollen Allergy (Severe, Verified 10/16/23 12:55) Anaphylaxiscoconut Allergy (Intermediate, Verified 10/16/23 12:55) Eye swelling, Rashmetronidazole [From Flagyl] Allergy (Intermediate, Verified 10/16/23 12:55) Vomitingaspirin Allergy (Verified 10/16/23 12:55) Shortness of breathbupropion HCl [From Wellbutrin] Allergy (Verified 10/16/23 12:55) Otherdivalproex sodium [From Depakote] Allergy (Verified 10/16/23 12:55) Rashdoxycycline Allergy (Verified 10/16/23 12:55) RashGadolinium-MRI Contrast Medium [Gadolinium-Contrast Medium - MRI] Allergy (Verified 10/16/23 12:55) Hivesketorolac [From Toradol] Allergy (Verified 10/16/23 12:55) Shortness of breathlamotrigine [From Lamictal] Allergy (Verified 10/16/23 12:55) Rashlatex Allergy (Verified 10/16/23 12:55) Hivesphenytoin sodium [From Dilantin] Allergy (Verified 10/16/23 12:55) Hivesphenytoin sodium extended [From Dilantin] Allergy (Verified 10/16/23 12:55) Hivespineapple Allergy (Verified 10/16/23 12:55) Swelling, Rashcorn Adverse Reaction (Severe, Verified 10/16/23 12:55) Laryngospasmsegg Adverse Reaction (Mild, Verified 10/16/23 12:55) Othererythromycin base Adverse Reaction (Verified 10/16/23 12:55) Nausea/Vom/Diarrheaquetiapine fumarate [From Seroquel] Adverse Reaction (Verified 10/16/23 12:55) OtherSulfa (Sulfonamide Antibiotics) Adverse Reaction (Verified 10/16/23 12:55) Vomitingvarenicline tartrate [From Chantix] Adverse Reaction (Verified 10/16/23 12:55) Vomiting Medications cholecalciferol (vitamin D3) 125 mcg (5,000 unit) disintegrating tablet 10,000 unit PO DAILY supplement 12/27/19 [History Confirmed 10/16/23] prazosin 2 mg capsule 2 mg PO QHS 09/20/20 [History Confirmed 10/16/23] vitamin E (dl, acetate) 45 mg (100 unit) capsule 45 mg PO DAILY 07/01/21 [History Confirmed 10/16/23] biotin 10 mg tablet 10 mg PO DAILY 10/15/22 [History Confirmed 10/16/23] fludrocortisone 0.1 mg tablet 0.1 mg PO DAILY HYPOTENSION 10/15/22 [History Confirmed 10/16/23] albuterol sulfate 90 mcg/actuation aerosol inhaler 2 puff inhalation 4X/DAY PRN ASTHMA 01/08/23 [History Confirmed 10/16/23] atorvastatin 10 mg tablet 10 mg PO DAILY 01/08/23 [History Confirmed 10/16/23] promethazine 12.5 mg tablet 12.5 mg PO Q8H PRN Nausea 01/08/23 [History Confirmed 10/16/23] triamcinolone acetonide 55 mcg nasal spray aerosol 2 spray intranasal DAILY ALLERGIES 01/08/23 [History Confirmed 10/16/23] turmeric root extract 500 mg capsule 500 mg PO DAILY 01/08/23 [History Confirmed 10/16/23] vitamin B complex 1 tab PO DAILY supplement 01/08/23 [History Confirmed 10/16/23] diphenoxylate-atropine 2.5 mg-0.025 mg tablet (Lomotil) 1 tab PO Q6H PRN Diarrhea 01/12/23 [History Confirmed 10/16/23] loperamide 2 mg capsule 2 mg PO Q6H PRN Diarrhea 01/12/23 [History Confirmed 10/16/23] tizanidine 4 mg capsule (Zanaflex) 4 mg PO BID muscle spasticity 01/12/23 [History Confirmed 10/16/23] calcium 300 mg chewable tablet 600 mg PO DAILY 02/18/23 [History Confirmed 10/16/23] fexofenadine 60 mg tablet (Jess Allergy) 60 mg PO BID 02/18/23 [History Confirmed 10/16/23] multivitamin 1 tab PO DAILY 02/18/23 [History Confirmed 10/16/23] pantoprazole 40 mg tablet,delayed release (Protonix) 40 mg PO BID #60 tabs 02/26/23 [Rx Confirmed 10/16/23] amoxicillin 500 mg capsule 1,000 mg (2 x 500 mg) PO Q12H #40 caps 05/13/23 [Rx Confirmed 10/16/23] rifabutin 150 mg capsule 150 mg PO BID #20 caps 05/13/23 [Rx Confirmed 10/16/23] scopolamine base 1 mg over 3 days transdermal patch 1 patch transdermal Q3D #10 ea 05/19/23 [Rx Confirmed 10/16/23] fluconazole 200 mg tablet (Diflucan) 200 mg PO ONCE #1 TAB 06/17/23 [Rx Confirmed 10/16/23] PFSH Medical History Abdominal pain Adrenal insufficiency Anxiety and depression Aphagia Arthritis Asthma Back pain Bilateral carpal tunnel syndrome Borderline personality disorder Cancer Chronic fatigue syndrome Colitis Contusion, hip Conversion disorder COPD (chronic obstructive pulmonary disease) CVA (cerebral vascular accident) Diarrhea Difficulty swallowing Emphysema/COPD Expressive aphasia Facial droop Fibromyalgia Frequent falls Gait disturbance Gastric reflux History of Crohn's disease History of edema History of migraine History of pain when walking History of pseudoseizure History of TIAs Hyperlipidemia Hypoglycemia Hypotension IBS (irritable bowel syndrome) Ileum ulcer Injury of head and neck Irritable bowel syndrome Ischemic stroke Kidney stones Left hip pain Marijuana use Migraines Night terrors, adult Paresthesia of right arm Post-menopausal Right arm weakness Right hip pain RLS (restless legs syndrome) Seasonal allergies Shortness of breath on exertion Smoker Stroke Stroke-like symptoms Stroke/cerebrovascular accident Swallowing dysfunction Tobacco use Vitamin D deficiency Wears dentures Surgical History H/O section H/O knee surgery History of cholecystectomy History of dilation and curettage Hx of colonoscopy Hx of tooth extraction S/P partial hysterectomy Family History Mother Diabetes Heart disease Hypertension HLD (hyperlipidemia) Depression Myocardial infarction Multiple sclerosisFather , 56 Diabetes Heart disease Hypertension HLD (hyperlipidemia) Asthma Myocardial infarctionSister Cancer DiabetesGrandfather Diabetes Social History adopted: Yes household members: none housing: house current occupational status: disabled Smoking Status: Former smoker alcohol intake: current alcohol intake frequency: a few times a month Alcohol type: wine substance use type: marijuana caffeine: Yes Type: coffee Number of servings: 1 what type of physical activity do you participate in: other details: home exercises, fishing do you feel safe at home: Yes HPI BL HANDS Details: This documentation accurately reflects the service provided and the decisions made by me, Dr. Leighton Del Rosario MD 10/16/23 0813. Part of today?s visit was documented by [ ], acting as scribe. AYAKA BRANTLEY is a 48 year old F here today for referred for bilateral carpal tunnel syndrome. concerned about an eye condition that is too much money to fix. not wearing the brace today. has legs neuropathy. had a fall. for years. had burned them. 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 tried nsaids. happening for years. quit smoking for 2 months. wearing a brace, at night. right side is worse. work - not anymore disabled from strokes and ptsd. Ortho Exam General General: Yes no acute distress Neurologic: Yes alert and Yes oriented x3 Psychologic: Yes reasonable and appropriate Right Wrist/Hand Skin/Wound: Yes CDI, No Swelling, No Ecchymosis, Yes nail intact and Yes capillary refill normal Right Wrist: Yes ROM-Extension 0-60, ROM-Flexion 0-80, ROM-Pronation 0-80, ROM-Supination 0-90, Durken's Test, Tinel's and Phalen's; No Thenar Atrophy or Hypothenar Atrophy Motor: EPL: 5, FDP-2: 5, 1st Dorsal Interosseous: 5 and APB: 5 Sensation: Radial: I, Ulnar: I and Median: D Left Wrist/Hand Skin/Wound: Yes CDI, No Swelling, No Ecchymosis, Yes nail intact, Yes capillary refill normal and No erythema Left Wrist: Yes ROM-Extension 0-60, Yes ROM-Flexion 0-80, Yes ROM-Pronation 0-80, Yes ROM-Supination 0-90, Yes Durken's Test, Yes Tinel's and Yes Phalen's; No Thenar Atrophy and No Hypothenar Atrophy Motor: EPL: 5, FDP-2: 5, 1st Dorsal Interosseous: 5 and APB: 5 Sensation: Radial: I, Ulnar: I and Median: D WRIST: neg tinels at the elbows Supplemental Info The referral states bilateral carpal tunnel syndrome from nerve conduction studies 05/27/2023 consistent with bilateral carpal tunnel syndrome mild degree bilaterally though modestly worse on the right Coding Level of Care Code Off vis,new,level 4 Diagnoses Bilateral carpal tunnel syndrome G56.03 Assessment and Plan Assessment and Plan (1) Bilateral carpal tunnel syndrome: Status: Acute Plan: 48 F bilateral carpal tunnel syndrome from nerve conduction studies 05/27/2023 consistent with bilateral carpal tunnel syndrome mild degree bilaterally though modestly worse on the right. This is worse on the patient's right side. I counseled the patient on diagnosis prognosis and treatment options available for this. This can get worse or more permanent with time. The patient to try rest ice anti-inflammatories activity modifications and nighttime splinting they have already tried a number of different things including splinting and anti-inflammatory use. They could try cortisone injection as well as open or endoscopic surgery on either side or both. The patient like to go ahead with right endoscopic carpal tunnel release slightly quicker recovery possibly increase the chance of incomplete release but controversial in the literature. I booked and consented the patient for right endoscopic carpal tunnel release. I will get a preoperative clearance. The patient understood no further questions or concerns. Generally 6 weeks postoperative recovery before returning to heavy lifting and grasping. Patient has some risk factors for infection and other increase surgical risks like chrons dz, low blood pressure, hx of stroke and other med history. Pros and cons risks and benefits were discussed with the patient including but not limited to infection, pain, stiffness, bleeding, damage to surrounding structures, neurovascular injury, recurrence or retear, failure or wear of hardware or fixation, instability, fracture, deep vein thrombosis and pulmonary embolism, anesthetic risks, , patient dissatisfaction, need for further surgery and other risks. Patient understood and wished to proceed with surgery, and signed the informed consent documentation. [facility] Medical History (Updated 11/06/23 @ 08:28 by Riddhi Quick) Abdominal pain Adrenal insufficiency Anxiety and depression Aphagia Arthritis Asthma Back pain Bilateral carpal tunnel syndrome Borderline personality disorder Cancer Chronic fatigue syndrome Colitis Contusion, hip Conversion disorder COPD (chronic obstructive pulmonary disease) CVA (cerebral vascular accident) Diarrhea Difficulty swallowing Emphysema/COPD Expressive aphasia Facial droop Fibromyalgia Frequent falls Gait disturbance Gastric reflux History of Crohn's disease History of edema History of migraine History of pain when walking History of pseudoseizure History of TIAs Hyperlipidemia Hypoglycemia Hypotension IBS (irritable bowel syndrome) Ileum ulcer Injury of head and neck Irritable bowel syndrome Ischemic stroke Left hip pain Marijuana use Migraines Night terrors, adult Paresthesia of right arm Post-menopausal Right arm weakness Right hip pain RLS (restless legs syndrome) Seasonal allergies Smoker Stroke Stroke-like symptoms Stroke/cerebrovascular accident Swallowing dysfunction Tobacco use Vitamin D deficiency Wears dentures Home Medications cholecalciferol (vitamin D3) 125 mcg (5,000 unit) disintegrating tablet 10,000 unit PO .QOD supplement 12/27/19 [History Last Taken 11/10/23] prazosin 2 mg capsule 2 mg PO QHS 09/20/20 [History Last Taken 11/10/23] vitamin E (dl, acetate) 45 mg (100 unit) capsule 45 mg PO DAILY 07/01/21 [History Last Taken 11/10/23] biotin 10 mg tablet 10 mg PO MOWEFR 10/15/22 [History Last Taken 11/10/23] fludrocortisone 0.1 mg tablet 0.1 mg PO DAILY HYPOTENSION 10/15/22 [History Last Taken 11/11/23] albuterol sulfate 90 mcg/actuation aerosol inhaler 2 puff inhalation 4X/DAY PRN ASTHMA 01/08/23 [History Last Taken 11/10/23] atorvastatin 10 mg tablet 10 mg PO DAILY 01/08/23 [History Last Taken 11/10/23] promethazine 12.5 mg tablet 12.5 mg PO Q8H PRN Nausea 01/08/23 [History Last Taken 11/10/23] triamcinolone acetonide 55 mcg nasal spray aerosol 2 spray intranasal DAILY ALLERGIES 01/08/23 [History Last Taken 11/10/23] turmeric root extract 500 mg capsule 500 mg PO DAILY 01/08/23 [History Last Taken 11/10/23] vitamin B complex 1 tab PO DAILY supplement 01/08/23 [History Last Taken 11/10/23] diphenoxylate-atropine 2.5 mg-0.025 mg tablet (Lomotil) 1 tab PO Q6H PRN Diarrhea 01/12/23 [History Last Taken Unknown] loperamide 2 mg capsule 2 mg PO Q6H PRN Diarrhea 01/12/23 [History Last Taken Unknown] tizanidine 4 mg capsule (Zanaflex) 4 mg PO TID muscle spasticity 01/12/23 [History Last Taken 11/10/23] multivitamin 1 tab PO DAILY 02/18/23 [History Last Taken 11/10/23] pantoprazole 40 mg tablet,delayed release (Protonix) 40 mg PO BID #60 tabs 02/26/23 [Rx Last Taken 11/10/23] ascorbic acid (vitamin C) 1,000 mg tablet (C-1000) 1 g PO DAILY 11/06/23 [History Last Taken 11/10/23] fexofenadine 180 mg tablet (Jess Allergy) 180 mg PO DAILY 11/06/23 [History Last Taken 11/10/23] omega 4-bsh-dit-fish oil 1,200 mg (144 mg-216 mg) capsule (Fish Oil) 1 cap PO DAILY 11/06/23 [History Last Taken 11/10/23] scopolamine base 1 mg over 3 days transdermal patch 1 patch transdermal Q3D PRN nausea and vomiting 11/06/23 [History Last Taken Unknown] Allergy/AdvReac Type Severity Reaction Status Date / Time bee pollen Allergy Severe Anaphylaxis Verified 11/11/23 13:05 coconut Allergy Intermediate Eye Verified 11/11/23 13:05 swelling, Rash metronidazole [From Flagyl] Allergy Intermediate Vomiting Verified 11/11/23 13:05 aspirin Allergy Shortness Verified 11/11/23 13:05 of breath bupropion HCl Allergy Other Verified 11/11/23 13:05 [From Wellbutrin] divalproex sodium Allergy Rash Verified 11/11/23 13:05 [From Depakote] doxycycline Allergy Rash Verified 11/11/23 13:05 Gadolinium-MRI Contrast Allergy Hives Verified 11/11/23 13:05 Medium [Gadolinium-Contrast Medium - MRI] ketorolac [From Toradol] Allergy Shortness Verified 11/11/23 13:05 of breath lamotrigine [From Lamictal] Allergy Rash Verified 11/11/23 13:05 latex Allergy Hives Verified 11/11/23 13:05 phenytoin sodium Allergy Hives Verified 11/11/23 13:05 [From Dilantin] phenytoin sodium extended Allergy Hives Verified 11/11/23 13:05 [From Dilantin] pineapple Allergy Swelling, Verified 11/11/23 13:05 Rash corn AdvReac Severe Laryngospas Verified 11/11/23 13:05 ms egg AdvReac Mild Other Verified 11/11/23 13:05 erythromycin base AdvReac Nausea/Vom/ Verified 11/11/23 13:05 Diarrhea quetiapine fumarate AdvReac Other Verified 11/11/23 13:05 [From Seroquel] Sulfa (Sulfonamide AdvReac Vomiting Verified 11/11/23 13:05 Antibiotics) varenicline tartrate AdvReac Vomiting Verified 11/11/23 13:05 [From Chantix] Family History Mother Diabetes Heart disease Hypertension HLD (hyperlipidemia) Depression Myocardial infarction Multiple sclerosis Father , 56 Diabetes Heart disease Hypertension HLD (hyperlipidemia) Asthma Myocardial infarction Sister Cancer Diabetes Grandfather Diabetes Surgical History (Updated 11/06/23 @ 08:28 by Riddhi Quick) H/O section H/O knee surgery History of cholecystectomy History of dilation and curettage History of esophagogastroduodenoscopy (EGD) Hx of colonoscopy Hx of tooth extraction S/P partial hysterectomy Social History adopted: Yes household members: none housing: house current occupational status: disabled Smoking Status: Former smoker alcohol intake: current alcohol intake frequency: a few times a month Alcohol type: wine substance use type: marijuana caffeine: Yes Type: coffee Number of servings: 1 what type of physical activity do you participate in: other details: home exercises, fishing do you feel safe at home: Yes Vital Signs Vital Signs Vital Signs: 11/11/23 13:07 11/11/23 13:07 Temperature 98.2 F Temperature Source Temporal Pulse Rate 74 Respiratory Rate 17 Respiratory Pattern Normal Blood Pressure 114/71 Blood Pressure Mean 85 Blood Pressure Source Monitor Blood Pressure Position Semi-Fowlers Blood Pressure Location Left Arm Pulse Ox 100 Oxygen Delivery Method Room Air Weight Weight: 145 lb 8.081 oz Body Mass Index (BMI) 25.0
[2023-11-11] MEDS: Cefazolin 2 GM in 0.9% Normal Saline (100mL Bag) 100 ML IV (14:10)
--- NOTE | 2023-11-11 14:15 | PCM.OPRPT ---
Problems Associated Problem List Diagnoses (1) Bilateral carpal tunnel syndrome: Report of Operation Date of Procedure: 11/11/23 Pre-Operative Diagnosis: right carpal tunnel syndrome Post-Operative Diagnosis: same Surgery/Procedure Performed:: right endoscopic carpal tunnel release Surgeon: Leighton Del Rosario Type of Anesthesia: Local and MAC Anesthesiologist: Jeremy Aguilar Estimated Blood Loss (mL): 20 Description of Procedure: Patient was brought to the operating room theater.? The patient was administered 2g iv ancef prior to the start of the procedure.? Placed supine on the operating room table.? Anesthesia induced.? SCDs on the legs.? Tourniquet applied to both upper operative extremity, appropriately padded. Arm table used. Operative extremity prepped and draped in the usual sterile fashion with chlorhexidine-based prep solution allowing over 3 minutes drying time prior to draping.? Preoperative timeout performed to confirm the site patient and the surgery. I used the [facility] endoscopic carpal tunnel kit / technique. 6 cc 0.25% bupivicaine at incision site. ? Tourniquet up at 250mmg. I made a transverse 2 cm incision in line with the? transverse wrist crease.? This was in line with the fourth digit.? I carried the dissection down through skin and subcutaneous tissue achieved meticulous hemostasis. Just ulnar to palmaris tendon.? I incised the antebrachial fascia.? I passed sequential dilators into the carpal tunnel along the radial border of the Guyon's canal aiming for the fourth digit with the hand in extension. I used a synovial elevator to identify the transverse fibers of the transverse carpal tunnel ligament.? Passed the scope into the carpal tunnel. Once I had identified the full proximal and distal extent of the ligament I fully released the ligament under direct visualization by deploying the blade and slowly withdrawing the scope made sequential passes until I no longer felt tension as well as the entire extent of the ligament was released under direct visualization.? Sounded the tunnel with buitrago tenotomy scissors, complete release, no bands. Pictures taken and saved before and after release. Tourniquet let down. Wound thoroughly irrigated.?Meticulous hemostasis achieved.? Incisions closed with 3-0 monocryl for the skin.?Skin was cleaned and dried. steri strips, adaptic and 4x4 gauze and yvette wrap. Patient woken up,? transferred off the operating room table and taken to postanesthetic care unit in stable condition. All sponge needle instrument counts were correct no complications.? Plan for the patient to be discharged home according to day surgery criteria when they are comfortable. Follow-up in the office in 2 days time. Gentle ROM hand and elbow no heavy lifting. cpt 21915 Complications none Admit VTE Documentation VTE Present on Admission: No VTE Mechan Device Prophylaxis: SCD's VTE Pharm Prophylaxis ordered?: No Reason prophylaxis not ordered:: Treatment Not Indicated Procedures Musculoskeletal 20xxx-29xxx: Other Procedure See Report
--- NOTE | 2023-11-11 14:40 | EX.PCM.DISCH ---
Discharge Instructions Diet Discharge Diet: No restrictions Activity Discharge Activity: Return to Normal Activity Lifting Restrictions: no hevay lifting or gripping 6 weeks Keep extremity elevated above heart level: Operative Extremity Dressing / Incision Call your doctor if your incision/area has: Continuous Slow Oozing, Sudden Increased Bleeding, Increased Pain/ Swelling, Increased Redness, Foul Smelling Discharge and Swelling at the incision site Change Dressing in: 2 days Cleanse incision/area with: Do not get Incision Wet Follow Up Care Please Follow Up With: Leighton Del Rosario MD When: 2 days Test Results: Test results from this visit will be discussed in further detail at your follow-up appointment, if applicable. Discharge Plan Admission Attending Provider: Leighton Del Rosario Primary Care Provider: Tej Whitehead [employer] [facility] Instructions Patient Instructions: Carpal Tunnel Release Surgery Discharge Orders/Prescriptions Prescriptions: No Action vitamin E (dl, acetate) 45 mg (100 unit) capsule 45 mg PO DAILY promethazine 12.5 mg tablet 12.5 mg PO Q8H PRN (Reason: Nausea) albuterol sulfate 90 mcg/actuation HFA aerosol inhaler 2 puff inhalation 4X/DAY PRN (Reason: ASTHMA) triamcinolone acetonide 55 mcg aerosol,spray 2 spray intranasal DAILY Rx Instructions: administer into each nostril atorvastatin 10 mg tablet 10 mg PO DAILY turmeric root extract 500 mg capsule 500 mg PO DAILY loperamide 2 mg capsule 2 mg PO Q6H PRN (Reason: Diarrhea) diphenoxylate-atropine [Lomotil] 2.5-0.025 mg tablet 1 tab PO Q6H PRN (Reason: Diarrhea) cholecalciferol (vitamin D3) 5,000 UNIT tablet,disintegrating 10,000 unit PO .QOD vitamin B complex Tablet 1 tab PO DAILY prazosin 2 MG capsule 2 mg PO QHS tizanidine [Zanaflex] 4 mg capsule 4 mg PO TID biotin 10 mg Tablet 10 mg PO MOWEFR fludrocortisone 0.1 mg tablet 0.1 mg PO DAILY Patient Comments: TAKE 1 TABLET BY MOUTH EVERY DAY multivitamin [Multi-Day] Tablet 1 tab PO DAILY fexofenadine [Jess Allergy] 180 mg tablet 180 mg PO DAILY omega 6-tha-pgi-fish oil [Fish Oil] 1,200 (144-216) mg capsule 1 cap PO DAILY ascorbic acid (vitamin C) [C-1000] 1,000 mg tablet 1 g PO DAILY scopolamine base 1 mg over 3 days patch 3 day 1 patch transdermal Q3D PRN (Reason: nausea and vomiting) Rx Instructions: change patch and alternate sites every 3 days. pantoprazole [Protonix] 40 mg tablet,delayed release (DR/EC) 40 mg PO BID Qty: 60 0RF Referrals / Follow Up: Leighton Del Rosario MD [Med Staff - Active Staff] - Tej Whitehead [employer], [employer] [facility] [Primary Care Provider] - Disposition Disposition (needs filled in before D/C Order can be placed): Home, Self Care
== END 2023-11-11 15:53 | disposition home or self-care (01) ==
LOC: SDC 12:31 → AC 12:33
PROVIDERS: PCP Nurse Practitioner Family; Referring Provider Nurse Practitioner Family; Visit Provider Orthopaedic Surgery Sports Medicine
PROC: (CPT 29848; principal; 2023-11-11 14:00)
DX: G56.03 Carpal tunnel syndrome, bilateral upper limbs (principal); J44.9 Chronic obstructive pulmonary disease, unspecified; F60.3 Borderline personality disorder; F12.90 Cannabis use, unspecified, uncomplicated; I95.9 Hypotension, unspecified; E78.5 Hyperlipidemia, unspecified; E55.9 Vitamin D deficiency, unspecified; Z86.73 Personal history of transient ischemic attack (TIA), and cerebral infarction without residual deficits; Z79.899 Other long term (current) drug therapy; Z87.891 Personal history of nicotine dependence
CPT/HCPCS: 29848; J7120; J2405

== ENCOUNTER → 2024-02-02 | Outpatient (CLI) | payer MEDICARE, MEDICAID, SELFPAY ==
[2024-02-02 09:26] LABS: Hematocrit 44.7 % (37-47); Hemoglobin 14.8 g/dL (12.0-15.0); Mean Corp Hgb Conc 33.1 g/dL (32-36); Mean Corpuscular Hgb 30.1 pg (27.0-32.0); Mean Corpuscular Volume 90.9 fL (81-99); Platelet Count 343 K/mm3 (150-450); RBC Distribution Width CV 13.5 % (11.6-14.6); RBC Distribution Width SD 45.3 fl (35.1-43.9); Red Blood Count 4.92 M/mm3 (4.2-5.4)
[2024-02-02 10:11] LABS: Vitamin D,25 Hydroxy 43.1 ng/mL
[2024-02-02 10:23] LABS: ALB/GLOB Ratio 0.9 RATIO (0.9-2.4); AST(SGOT) 13 U/L (15-37); Alanine Aminotransfer ALT/SGPT 21 U/L (13-56); Albumin, Serum 3.5 g/dL (3.2-5.0); Alkaline Phosphatase 99 U/L (45-117); Anion Gap 4 (5-15); BUN 11 mg/dL (7-18); BUN/Creat Ratio 14.6 RATIO (10-20); Chloride 108 mmol/L (98-107); Cholesterol 188 mg/dL (200); Creatinine, Serum 0.75 mg/dL (0.55-1.02); EST Glomerular Filtration Rate 88 mL/min (>60); Est Glom Filt Rate - Afr Amer 106 mL/min (>60); Globulin 3.7 g/dL (2.2-4.2); Glucose 86 mg/dL (74-106); High Density Lipoprotein 51 mg/dL; Potassium 3.9 mmol/L (3.5-5.1); Protein, Total 7.2 g/dL (6.4-8.2); Sodium Level 140 mmol/L (136-145); Triglycerides 225 mg/dL; Very Low Density Lipoprotein 45 mg/dL (5-40)
== END | disposition home or self-care (01) ==
PROVIDERS: PCP Nurse Practitioner Family; Referring Provider Nurse Practitioner Family; Visit Provider Nurse Practitioner Family
DX: E78.5 Hyperlipidemia, unspecified (principal); D70.9 Neutropenia, unspecified; E55.9 Vitamin D deficiency, unspecified
CPT/HCPCS: 36415; 80053; 80061; 82306; 85027

== ENCOUNTER → 2025-04-03 | Outpatient (CLI) | payer MEDICARE, MEDICAID, SELFPAY ==
--- NOTE | 2025-04-03 10:45 | MRI_ITS ---
PROCEDURE: UPPER EXT JOINT ONLY(ROUTINE) 04/03/2025 REASON FOR EXAM: PAIN, MULTIPLE FALLS TECHNIQUE: T1, T2, PD, MRI of the right shoulder. Multiplanar and multisequence images were obtained without IV contrast administration. COMPARISON: COMPARISON : None FINDINGS: Rotator cuff: There is no muscular atrophy. There is moderate distal supraspinatus and infraspinatus tendinopathy without full-thickness tear or retraction. The subscapularis and teres minor appear intact. AC joint: The AC joint is aligned. There is no evidence of AC joint separation. There is a type 2 acromion. Bone Marrow: There is no bony contusion or occult fracture. Labrum: There is no visible labral tear. Biceps tendon: The biceps tendon is present in the biceps tendon groove. The biceps tendon anchors appear intact. Effusion: There is no significant joint effusion. There is fluid in the subacromial subdeltoid bursa, with bursitis. MRI/Upper Ext Joint Only(Routine) IMPRESSION: There is moderate distal supraspinatus and infraspinatus tendinopathy without f ull-thickness tear or retraction. There is fluid in the subacromial subdeltoid bursa, with bursitis. Reading Location: [facility]
--- NOTE | 2025-04-03 12:10 | MRI_ITS ---
PROCEDURE: BRAIN W/WO CONTRAST 04/03/2025 REASON FOR EXAM: MIGRAINES, TIA TECHNIQUE: BRAIN W/WO CONTRAST Multiplanar and multisequence images were obtained. CONTRAST: 15 cc Clariscan FINDINGS: Normal craniocervical junction. No suprasellar mass. Gradient echo images demonstrate no acute or chronic hemorrhage. There is no abnormal diffusion to suggest an acute or recent ischemic event. The brainstem and cerebellum are unremarkable. There are no pathologic flow voids. There is mucosal thickening in the left sided mastoid air cells. The orbits appear symmetric. The study is negative for demyelination. On coronal T2 weighted images, there is no impingement of the optic chiasm or suprasellar mass. Orbital images were also performed evidently. No optic nerve demyelination. No abnormal enhancement of the optic nerves or optic chiasm. No abnormal intracranial enhancement or dural sinus thrombosis. No lacrimal or orbital mass. MRI/Brain W/WO Contrast IMPRESSION: Study within normal limits Reading [facility]
--- NOTE | 2025-04-03 12:10 | MRI_ITS ---
PROCEDURE: SPINE CERVICAL W/WO CONTRAST 04/03/2025 REASON FOR EXAM: TIA, MIGRAINES, DOUBLE VISION TECHNIQUE: SPINE CERVICAL W/WO CONTRAST Multiplanar and multisequence images were obtained with intravenous gadolinium-based contrast administration. CONTRAST: VOLUME: mL COMPARISON: 12-28-2019 FINDINGS: Straightening of cervical curve denoting myospasm. No vertebral fracture/acute dislocation noted. The vertebral body heights are normal. The examined vertebral bodies and posterior neural elements appear intact with no fractures. Normal craniometric measures of the craniovertebral junction No obvious marrow degenerative signal. [place] 0. Variable degrees of reduced bright T2 signal of the intervertebral discs denoting their desiccation. C1-C2: Atlantodens interval is preserved. Odontoid process and atlantoaxial joint appear normal. C2-C3: There is no significant disc pathology. Normal morphology of the ligamentum flava. No arthropathy of the uncovertebral and zygapophyseal joints. No significant spinal canal stenosis noted. C3-C4: There is no significant disc pathology. Normal morphology of the ligamentum flava. No arthropathy of the uncovertebral and zygapophyseal joints. No significant spinal canal stenosis noted. C4-C5: There is no significant disc pathology. Normal morphology of the ligamentum flava. No arthropathy of the uncovertebral and zygapophyseal joints. No significant spinal canal stenosis noted. C5-C6: a diffuse disc bulge seen indenting the cord encroaching upon the related neural exit foramina inducing mild to moderate exiting nerve roots compression. C6-C7: There is no significant disc pathology. Normal morphology of the ligamentum flava. No arthropathy of the uncovertebral and zygapophyseal joints. No significant spinal canal stenosis noted. C7-T1: There is no significant disc pathology. Normal morphology of the ligamentum flava. No arthropathy of the uncovertebral and zygapophyseal joints. No significant spinal canal stenosis noted. Normal appearance of the examined cervical cord and cranio-cervical junction. No marrow infiltrative lesions. No paraspinal soft tissue masses. MRI/Spine Cervical W/WO Contrast IMPRESSION: Straightening of cervical curve denoting myospasm. No fractures/acute dislocation noted. C5-C6: a diffuse disc bulge inducing mild to moderate exiting nerve roots compr ession. No interval changes Reading Location: [place] [id number]
== END | disposition home or self-care (01) ==
PROVIDERS: PCP Nurse Practitioner Family; Referring Provider Orthopaedic Surgery Sports Medicine; Visit Provider Orthopaedic Surgery Sports Medicine
DX: Z86.73 Personal history of transient ischemic attack (TIA), and cerebral infarction without residual deficits (principal)
CPT/HCPCS: 70553; 72156; 73221; A9575

== ENCOUNTER 2025-05-03 07:02 | Day surgery (SDC) | payer MEDICARE, MEDICAID, SELFPAY ==
--- NOTE | 2025-05-01 15:55 | PAT.ANESEVAL ---
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 When Was Last Pacemaker Check QUESTION #4 FULL TEXT: You/Your Family Experience fever (hyperthermia) with Anesthesia Last Oral Intake Last Oral intake: Last Oral Intake NPO since Meds taken in AM with sips of water? 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 department supervisor Female Yes 05/01/25 10:06 HX of Motion Sickness No 05/01/25 10:06 HX of N/V After Surgery Yes 05/01/25 10:06 Non-Smoker Yes 05/01/25 10:06 Duration of Surgery greater No 05/01/25 10:06 than 60 minutes Number of Risk Factors 3 05/01/25 10:06 PONV Score Moderate Risk 05/01/25 10:06 Height & Weight Height & Weight: Anesthesia: Height & Weight Height 5 ft 4 in 04/11/25 13:23 Respiratory Assessment Respiratory Assessment - kersey department supervisor: Respiratory Tract Infection Hx - kersey department supervisor Hx Respiratory Tract Infection No 05/01/25 10:06 STOP Sleep Apnea STOP Sleep Apnea - kersey department supervisor: STOP Sleep Apnea - kersey department supervisor Hx Hypertension No 05/01/25 10:06 Hx Sleep Apnea No 05/01/25 10:06 CPAP BIPAP Do you snore loudly (louder No 05/01/25 10:06 than talking or can be heard Do you often feel tired/ No 05/01/25 10:06 fatigued/ sleepy during daytime? Has anyone observed you stop No 05/01/25 10:06 breathing during sleep? STOP Results Negative 05/01/25 10:06 QUESTION #5 FULL TEXT : Do you snore loudly (louder than talking or can be heard through closed doors)? 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 Specify any problems Hx of Preganancy in last 3 No 05/01/25 10:06 Months Nurse Filling Out Transfusion [facility] 05/01/25 10:06 & Questions: Date: 05/01/25 05/01/25 10:06 Time: 10:16 05/01/25 10:06 Patient unable to answer at this time (ie. confused, unrespo /Reproduction History /Reproductive History - kersey department supervisor: /Reproductive Hx- kersey department supervisor Hx Now No 05/01/25 10:06 Gestational Age (in weeks): EDC: Hx Hx Para Hx Section SAB No 05/01/25 10:06 [facility] Medical History Wears glasses Depression Anxiety Walker as ambulation aid Ambulates with cane High cholesterol TIA (transient ischemic attack) Former smoker Asthma COPD (chronic obstructive pulmonary disease) Emphysema, unspecified History of echocardiogram Cardiology follow-up encounter Right cervical radiculopathy Tendinosis of right rotator cuff Right shoulder tendinitis Bursitis of right shoulder Impingement of right shoulder Right elbow pain Right shoulder pain Right knee pain Bilateral carpal tunnel syndrome History of Crohn's disease Chronic fatigue syndrome Borderline personality disorder Vitamin D deficiency Seasonal allergies RLS (restless legs syndrome) Night terrors, adult Hypoglycemia Hyperlipidemia Swallowing dysfunction Adrenal insufficiency Gait disturbance Aphagia Facial droop Ischemic stroke CVA (cerebral vascular accident) Stroke IBS (irritable bowel syndrome) Ileum ulcer Wears dentures Post-menopausal Cancer Marijuana use Arthritis Back pain Injury of head and neck Difficulty swallowing Gastric reflux Smoker History of pain when walking History of edema Hypotension Stroke/cerebrovascular accident History of TIAs Diarrhea Abdominal pain Colitis Conversion disorder Left hip pain Frequent falls Right hip pain Asthma Migraines Emphysema/COPD Contusion, hip Irritable bowel syndrome Fibromyalgia COPD (chronic obstructive pulmonary disease) Tobacco use History of migraine Anxiety and depression History of pseudoseizure Paresthesia of right arm Right arm weakness Expressive aphasia Stroke-like symptoms Home Medications Medication Instructions Recorded Last Taken Type cholecalciferol (vitamin D3) 125 10,000 unit PO MOWEFR supplement 12/27/19 11/10/23 History mcg (5,000 unit) disintegrating tablet prazosin 2 mg capsule 2 mg PO QHS 09/20/20 11/10/23 History vitamin E (dl, acetate) 45 mg (100 45 mg PO DAILY 07/01/21 11/10/23 History unit) capsule fludrocortisone 0.1 mg tablet 0.1 mg PO DAILY HYPOTENSION 10/15/22 11/11/23 History albuterol sulfate 90 mcg/actuation 2 puff inhalation 4X/DAY PRN ASTHMA 01/08/23 11/10/23 History aerosol inhaler promethazine 12.5 mg tablet 12.5 mg PO Q8H PRN Nausea 01/08/23 11/10/23 History triamcinolone acetonide 55 mcg 2 spray intranasal DAILY ALLERGIES 01/08/23 11/10/23 History nasal spray aerosol turmeric root extract 500 mg 500 mg PO DAILY 01/08/23 11/10/23 History capsule vitamin B complex 1 tab PO DAILY supplement 01/08/23 11/10/23 History diphenoxylate-atropine 2.5 1 tab PO Q6H PRN Diarrhea 01/12/23 Unknown History mg-0.025 mg tablet (Lomotil) loperamide 2 mg capsule 2 mg PO Q6H PRN Diarrhea 01/12/23 Unknown History tizanidine 4 mg capsule (Zanaflex) 4 mg PO TID muscle spasticity 01/12/23 11/10/23 History ascorbic acid (vitamin C) 1,000 mg 1 g PO DAILY 11/06/23 11/10/23 History tablet (C-1000) fexofenadine 180 mg tablet 180 mg PO DAILY 11/06/23 11/10/23 History (Jess Allergy) ibuprofen 200 mg capsule 200 mg PO Q6H PRN pain 11/16/23 Unknown History ezetimibe 10 mg tablet 10 mg PO QDAY 01/09/25 Unknown History epinephrine 0.3 mg/0.3 mL 0.3 ml IM .ONCE 02/23/25 Unknown History injection, auto-injector fremanezumab-vfrm 225 mg/1.5 mL 225 mg subcut QMONTH 02/23/25 Unknown History subcutaneous syringe (Ajovy Syringe) lorazepam 0.5 mg tablet 0.5 mg PO Q8H PRN anxiety 02/23/25 Unknown History mexiletine 150 mg capsule 300 mg PO Q12H 02/23/25 Unknown History omeprazole 40 mg capsule,delayed 40 mg PO QDAY 02/23/25 Unknown History release clopidogrel 75 mg tablet (Plavix) 75 mg PO QDAY 04/11/25 04/26/25 History carbidopa 25 mg-levodopa 100 mg 1 tab PO QHS 05/01/25 Unknown History tablet (Sinemet) fluoxetine 20 mg capsule 20 mg PO DAILY 05/01/25 Unknown History Allergy/AdvReac Type Severity Reaction Status Date / Time bee pollen Allergy Severe Anaphylaxis Verified 05/01/25 09:56 coconut Allergy Intermediate Eye Verified 05/01/25 09:56 swelling, Rash metronidazole (From Flagyl) Allergy Intermediate Vomiting Verified 05/01/25 09:56 aspirin Allergy Shortness Verified 05/01/25 09:56 of breath bupropion HCl (From Allergy Other Verified 05/01/25 09:56 Wellbutrin) divalproex sodium (From Allergy Rash Verified 05/01/25 09:56 Depakote) doxycycline Allergy Rash Verified 05/01/25 09:56 Gadolinium-MRI Contrast Allergy Hives Verified 05/01/25 09:56 Medium (Gadolinium-Contrast Medium - MRI) ketorolac (From Toradol) Allergy Shortness Verified 05/01/25 09:56 of breath lamotrigine (From Lamictal) Allergy Rash Verified 05/01/25 09:56 latex Allergy Hives Verified 05/01/25 09:56 phenytoin sodium (From Allergy Hives Verified 05/01/25 09:56 Dilantin) phenytoin sodium extended Allergy Hives Verified 05/01/25 09:56 (From Dilantin) pineapple Allergy Swelling, Verified 05/01/25 09:56 Rash corn AdvReac Severe Laryngospas Verified 05/01/25 09:56 ms egg AdvReac Mild Other Verified 05/01/25 09:56 erythromycin base AdvReac Nausea/Vom/ Verified 05/01/25 09:56 Diarrhea quetiapine fumarate (From AdvReac Other Verified 05/01/25 09:56 Seroquel) Sulfa (Sulfonamide AdvReac Vomiting Verified 05/01/25 09:56 Antibiotics) varenicline tartrate (From AdvReac Vomiting Verified 05/01/25 09:56 Chantix) Family History Mother Diabetes Heart disease Hypertension HLD (hyperlipidemia) Depression Myocardial infarction Multiple sclerosis Father , 56 Diabetes Heart disease Hypertension HLD (hyperlipidemia) Asthma Myocardial infarction Sister Cancer Diabetes Grandfather Diabetes Surgical History History of esophagogastroduodenoscopy (EGD) Hx of colonoscopy Hx of tooth extraction History of dilation and curettage S/P partial hysterectomy H/O knee surgery H/O section History of cholecystectomy Social History adopted: Yes household members: none housing: house current occupational status: disabled Smoking Status: Former smoker alcohol intake: current alcohol intake frequency: a few times a month Alcohol type: wine substance use type: marijuana caffeine: Yes Type: coffee Number of servings: 1 what type of physical activity do you participate in: other details: home exercises, fishing do you feel safe at home: Yes Audit: Pertinent Findings Pertinent Findings EKG Perinent findings: EKG 03/17/2025: Normal sinus rhythm with a ventricular rate of 84 EKG 09/27/23: Vent. Rate : 059 BPM Atrial Rate : 059 BPM P-R Int : 136 ms QRS Dur : 082 ms QT Int : 416 ms P-R-T Axes : 070 050 054 degrees QTc Int : 411 ms Sinus bradycardia Otherwise normal ECG Echo (EF%) pertinent findings: Echocardiogram 03/18/2025: Left ventricular EF estimated at 55 to 60%. No evidence of regional wall motion abnormalities. Agitated saline study shows no evidence of atrial septal defect. Recommendation Anesthesia Recommendation Anesthesia recommendation: OPTIMIZED for anesthesia
[2025-05-03] VITALS (9 sets, daily range): BP systolic 94–122; BP diastolic 68–86; PULSE 72–77; RESP 16–18; TEMP 36.1–36.8; O2SAT 94–100; BMI 28.0
[2025-05-03] MEDS: Lactated Ringers 1,000 ML 15 ML IV (07:38)
--- NOTE | 2025-05-03 08:14 | PCM.PRE.AN2 ---
ASA Classification* ASA Classification ASA Classification: 3 Assessment & Plan Anesthesia* Anesthesia Assessment Anesthesia Assessment: Discussed sedation and/or anesthesia options, risks, benefits, and alternatives with patient/parents/legal guardian/POA. Questions invited. The patient/parents/legal guardian/POA seems to understand and agrees to proceed with anesthesia plan. Reviewed the physical assessment, medical history, allergy history and patient home medications list prior to surgery/procedure/anesthetic and documented any changes. Performed airway and anesthesia risk assessments. Anesthesia Type Anesthesia Type: MAC History Source History Obtained from:: Patient and Chart Anesthesia Focused Assessment* Temperature: 98.2 F Pulse Rate: 77 Blood Pressure: 122/86 Respiratory Rate: 18 Pulse Ox: 99 Oxygen Delivery Method: Room Air Airway Assessment Mouth opens: >3 cm Mallampati Score: II Teeth Condition: Dentures, Full, Lower and Upper Neck Range of motion (ROM): Full ROM Labs Anesthesia Preop lab: CBC WBC 8.0 K/mm3 (4.4-11.0) 02/02/24 08:02/02/24 RBC 4.92 M/mm3 (4.2-5.4) 02/02/24 08:02/02/24 Hgb 14.8 g/dL (12.0-15.0) 02/02/24 08:02/02/24 Hct 44.7 % (37-47) 02/02/24 08:02/02/24 Plt Count 343 K/mm3 (150-450) 02/02/24 08:02/02/24 CHEMISTRY Potassium 3.9 mmol/L (3.5-5.1) 02/02/24 08:02/02/24 Sodium 140 mmol/L (136-145) 02/02/24 08:29 02/02/24 Magnesium 2.1 mg/dL (1.6-2.6) 03/11/22 09:37 03/11/22 Phosphorus 2.4 mg/dL (2.5-4.9) L 03/11/22 09:37 03/11/22 BUN 11 mg/dL (7-18) 02/02/24 08:02/02/24 Creatinine 0.75 mg/dL (0.55-1.02) 02/02/24 08:02/02/24 Glucose 86 mg/dL (74-106) 02/02/24 08:29 02/02/24 POC Glucose 104 mg/dL (74-106) 09/27/23 12:36 09/27/23 TSH 0.98 uIU/mL (0.358-3.74) 08/03/23 08:45 08/03/23 COAG PT 13.7 SECONDS (11.7-14.9) 12/03/22 03:30 12/03/22 Pre-Assessment Diagnosis/Proposed Procedure Planned Operative Procedure(s): EGD Anesthesia History Anesthesia History - residential care officer: Anesthesia History - residential care officer Hx Hospitalization Yes: TIA 02/202505/01/25 10:06 Any Problems With Anesthesia No 05/01/25 10:06 Cholinesterase deficiency No 05/01/25 10:06 You/Your Family Experience No: ADOPTED 05/01/25 10:06 fever (hyperthermia) with Relationship Recent Exposure to Contagious No 05/03/25 07:35 Disease Does patient have nerve No 05/01/25 10:06 stimulator Patient instructed to have device shut off --Does patient have Pacemaker No 05/03/25 07:35 or ICD? When Was Last Pacemaker Check QUESTION #4 FULL TEXT: You/Your Family Experience fever (hyperthermia) with Anesthesia Last Oral Intake Last Oral intake: Last Oral Intake NPO since 23:00 05/03/25 07:35 Meds taken in AM with sips of water? Meds patient instructed to take am of surgery PONV PONV - residential care officer: PONV - residential care officer Female Yes 05/01/25 10:06 HX of Motion Sickness No 05/01/25 10:06 HX of N/V After Surgery Yes 05/01/25 10:06 Non-Smoker Yes 05/01/25 10:06 Duration of Surgery greater No 05/01/25 10:06 than 60 minutes Number of Risk Factors 3 05/01/25 10:06 PONV Score Moderate Risk 05/01/25 10:06 Height & Weight Height & Weight: Anesthesia: Height & Weight Height 5 ft 4 in 05/03/25 07:35 Weight: 74 kg 05/03/25 07:35 Body Mass Index (BMI) 28.0 05/03/25 07:35 Respiratory Assessment Respiratory Assessment - residential care officer: Respiratory Tract Infection Hx - residential care officer Hx Respiratory Tract Infection No 05/01/25 10:06 STOP Sleep Apnea STOP Sleep Apnea - residential care officer: STOP Sleep Apnea - residential care officer Hx Hypertension No 05/01/25 10:06 Hx Sleep Apnea No 05/01/25 10:06 CPAP BIPAP Do you snore loudly (louder No 05/01/25 10:06 than talking or can be heard Do you often feel tired/ No 05/01/25 10:06 fatigued/ sleepy during daytime? Has anyone observed you stop No 05/01/25 10:06 breathing during sleep? STOP Results Negative 05/01/25 10:06 QUESTION #5 FULL TEXT : Do you snore loudly (louder than talking or can be heard through closed doors)? Tobacco Use History Tobacco Use History - residential care officer: Tobacco Use History - residential care officer Tobacco Use Cigarettes 10/06/23 13:03 Smoking Status Former smoker 05/01/25 10:06 Hx Tobacco Use No 05/01/25 10:06 Years Smoking Packs Smoked per Day Smoking Cessation Date was Yes - quit smoking within 15 05/01/25 10:06 within the last 15 years years Hx Smoking Cessation Date 07/19/23 05/01/25 10:06 Hx Smoking Cessation No 05/01/25 10:06 Counseling Hematologic Medial History Hematologic Hx - residential care officer: Hematologic Medical Hx - field education coordinator Hx of Blood Transfusion No 05/01/25 10:06 Hx of Transfusion in last 3 No 05/01/25 10:06 Months Date of Last Transfusion (if within last 3 months) Ever experience any problems No 05/01/25 10:06 with transfusion(s)? Specify any problems Hx of Preganancy in last 3 No 05/01/25 10:06 Months Nurse Filling Out Transfusion [facility] 05/01/25 10:06 & Questions: Date: 05/01/25 05/01/25 10:06 Time: 10:16 05/01/25 10:06 Patient unable to answer at this time (ie. confused, unrespo /Reproduction History /Reproductive History - residential care officer: /Reproductive Hx- residential care officer Hx Now No 05/01/25 10:06 Gestational Age (in weeks): EDC: Hx Hx Para Hx Section SAB No 05/01/25 10:06 Active Medications Active Medications: Current Medications Generic Name Dose Route Start Last Admin Trade Name Freq PRN Reason Stop Dose Admin Lactated Ringer's 1,000 mls @ 15 mls/hr 05/03/25 07:15 05/03/25 07:38 IV 15 mls/hr .Q48H ROBERT Administration PFSH Medical History Wears glasses Depression Anxiety Walker as ambulation aid Ambulates with cane High cholesterol TIA (transient ischemic attack) Former smoker Asthma COPD (chronic obstructive pulmonary disease) Emphysema, unspecified History of echocardiogram Cardiology follow-up encounter Right cervical radiculopathy Tendinosis of right rotator cuff Right shoulder tendinitis Bursitis of right shoulder Impingement of right shoulder Right elbow pain Right shoulder pain Right knee pain Bilateral carpal tunnel syndrome History of Crohn's disease Chronic fatigue syndrome Borderline personality disorder Vitamin D deficiency Seasonal allergies RLS (restless legs syndrome) Night terrors, adult Hypoglycemia Hyperlipidemia Swallowing dysfunction Adrenal insufficiency Gait disturbance Aphagia Facial droop Ischemic stroke CVA (cerebral vascular accident) Stroke IBS (irritable bowel syndrome) Ileum ulcer Wears dentures Post-menopausal Cancer Marijuana use Arthritis Back pain Injury of head and neck Difficulty swallowing Gastric reflux Smoker History of pain when walking History of edema Hypotension Stroke/cerebrovascular accident History of TIAs Diarrhea Abdominal pain Colitis Conversion disorder Left hip pain Frequent falls Right hip pain Asthma Migraines Emphysema/COPD Contusion, hip Irritable bowel syndrome Fibromyalgia COPD (chronic obstructive pulmonary disease) Tobacco use History of migraine Anxiety and depression History of pseudoseizure Paresthesia of right arm Right arm weakness Expressive aphasia Stroke-like symptoms Home Medications Medication Instructions Recorded Last Taken Type cholecalciferol (vitamin D3) 125 10,000 unit PO MOWEFR supplement 12/27/19 11/10/23 History mcg (5,000 unit) disintegrating tablet prazosin 2 mg capsule 2 mg PO QHS 09/20/20 11/10/23 History vitamin E (dl, acetate) 45 mg (100 45 mg PO DAILY 07/01/21 11/10/23 History unit) capsule fludrocortisone 0.1 mg tablet 0.1 mg PO DAILY HYPOTENSION 10/15/22 11/11/23 History albuterol sulfate 90 mcg/actuation 2 puff inhalation 4X/DAY PRN ASTHMA 01/08/23 11/10/23 History aerosol inhaler promethazine 12.5 mg tablet 12.5 mg PO Q8H PRN Nausea 01/08/23 11/10/23 History triamcinolone acetonide 55 mcg 2 spray intranasal DAILY ALLERGIES 01/08/23 11/10/23 History nasal spray aerosol turmeric root extract 500 mg 500 mg PO DAILY 01/08/23 11/10/23 History capsule vitamin B complex 1 tab PO DAILY supplement 01/08/23 11/10/23 History diphenoxylate-atropine 2.5 1 tab PO Q6H PRN Diarrhea 01/12/23 Unknown History mg-0.025 mg tablet (Lomotil) loperamide 2 mg capsule 2 mg PO Q6H PRN Diarrhea 01/12/23 Unknown History tizanidine 4 mg capsule (Zanaflex) 4 mg PO TID muscle spasticity 01/12/23 11/10/23 History ascorbic acid (vitamin C) 1,000 mg 1 g PO DAILY 11/06/23 11/10/23 History tablet (C-1000) fexofenadine 180 mg tablet 180 mg PO DAILY 11/06/23 11/10/23 History (Jess Allergy) ibuprofen 200 mg capsule 200 mg PO Q6H PRN pain 11/16/23 Unknown History ezetimibe 10 mg tablet 10 mg PO QDAY 01/09/25 Unknown History epinephrine 0.3 mg/0.3 mL 0.3 ml IM .ONCE 02/23/25 Unknown History injection, auto-injector fremanezumab-vfrm 225 mg/1.5 mL 225 mg subcut QMONTH 02/23/25 Unknown History subcutaneous syringe (Ajovy Syringe) lorazepam 0.5 mg tablet 0.5 mg PO Q8H PRN anxiety 02/23/25 Unknown History mexiletine 150 mg capsule 300 mg PO Q12H 02/23/25 Unknown History omeprazole 40 mg capsule,delayed 40 mg PO QDAY 02/23/25 Unknown History release clopidogrel 75 mg tablet (Plavix) 75 mg PO QDAY 04/11/25 04/26/25 History carbidopa 25 mg-levodopa 100 mg 1 tab PO QHS 05/01/25 Unknown History tablet (Sinemet) fluoxetine 20 mg capsule 20 mg PO DAILY 05/01/25 Unknown History Allergy/AdvReac Type Severity Reaction Status Date / Time bee pollen Allergy Severe Anaphylaxis Verified 05/03/25 07:24 coconut Allergy Intermediate Eye Verified 05/03/25 07:24 swelling, Rash metronidazole (From Flagyl) Allergy Intermediate Vomiting Verified 05/03/25 07:24 aspirin Allergy Shortness Verified 05/03/25 07:24 of breath bupropion HCl (From Allergy Other Verified 05/03/25 07:24 Wellbutrin) divalproex sodium (From Allergy Rash Verified 05/03/25 07:24 Depakote) doxycycline Allergy Rash Verified 05/03/25 07:24 Gadolinium-MRI Contrast Allergy Hives Verified 05/03/25 07:24 Medium (Gadolinium-Contrast Medium - MRI) ketorolac (From Toradol) Allergy Shortness Verified 05/03/25 07:24 of breath lamotrigine (From Lamictal) Allergy Rash Verified 05/03/25 07:24 latex Allergy Hives Verified 05/03/25 07:24 phenytoin sodium (From Allergy Hives Verified 05/03/25 07:24 Dilantin) phenytoin sodium extended Allergy Hives Verified 05/03/25 07:24 (From Dilantin) pineapple Allergy Swelling, Verified 05/03/25 07:24 Rash corn AdvReac Severe Laryngospas Verified 05/03/25 07:24 ms egg AdvReac Mild Other Verified 05/03/25 07:24 erythromycin base AdvReac Nausea/Vom/ Verified 05/03/25 07:24 Diarrhea quetiapine fumarate (From AdvReac Other Verified 05/03/25 07:24 Seroquel) Sulfa (Sulfonamide AdvReac Vomiting Verified 05/03/25 07:24 Antibiotics) varenicline tartrate (From AdvReac Vomiting Verified 05/03/25 07:24 Chantix) Family History Mother Diabetes Heart disease Hypertension HLD (hyperlipidemia) Depression Myocardial infarction Multiple sclerosis Father , 56 Diabetes Heart disease Hypertension HLD (hyperlipidemia) Asthma Myocardial infarction Sister Cancer Diabetes Grandfather Diabetes Surgical History History of esophagogastroduodenoscopy (EGD) Hx of colonoscopy Hx of tooth extraction History of dilation and curettage S/P partial hysterectomy H/O knee surgery H/O section History of cholecystectomy Social History adopted: Yes household members: none housing: house current occupational status: disabled Smoking Status: Former smoker alcohol intake: current alcohol intake frequency: a few times a month Alcohol type: wine substance use type: marijuana caffeine: Yes Type: coffee Number of servings: 1 what type of physical activity do you participate in: other details: home exercises, fishing do you feel safe at home: Yes Review of Systems (Anesthesia) ROS Narrative System reviewed and no additional complaints, except as documented. Physical Exam Const alert and oriented x3 HEENT Teeth and Gingiva: dentures Neck full ROM Resp normal respiratory effort Cardio regular rate
--- NOTE | 2025-05-03 08:15 | EGD_PTH ---
PATIENT: AYAKA BRANTLEY LOC: EN U#:[id number] AGE/SX: 49/F ROOM: RE05/03/[address]: Dr. Anoop Andrade DO : 1975 BED: DIS: 05/03/2025 SPEC #: [id number] RECD: 05/03/25 10:41 STATUS: PRETTY RETommy #: [id number] LEXX: 05/03/25 08:[address]: Anoop Andrade DEPT: SURGICAL PATHOLOGY RECD BY: Kristian Clinton ENTERED: 05/03/25 12:14 SP TYPE: EGD BIOPSY MARIAM DR: Tej Whitehead, SWAGER OPERATOR-C Tissues: A - Gastric mucous membrane B - Gastric mucous membrane C - Duodenum, NOS Procedures: Immunohistochemical Stains Surgery Specimen Level IV HEADER OPERATION: EGD with biopsies PRE-OP DIAGNOSIS: Nausea, dizziness, Crohn's disease with history of H.pylori TISSUE SUBMITTED: A- Gastric antrum biopsy, B- Gastric body biopsy, C- Duodenum biopsy MICROSCOPIC DIAGNOSIS A. Gastric antrum, biopsy: Chronic active gastritis. B. Gastric body, biopsy: Chronic active gastritis. Immunohistochemistry for H. pylori is positive.C. Duodenum, colon, biopsy: Unremarkable duodenal mucosa. Negative for histologic signs of celiac disease. MICROSCOPIC DESCRIPTION Slides are reviewed. All matched controls reacted appropriately. These tests were developed and their performance characteristics determined by [facility]. They may not have been cleared or approved by the [place]. Food and Drug Administration. The FDA has determined that such clearance or approval is not necessary. The above immunohistochemical/dualISH markers are viewed by the Pathologist. GROSS DESCRIPTION A. Received in fixative is one container labeled with the patient's name and designated "Gastric antrum biopsy." The specimen consists of two irregular fragments of light smyth soft tissue that in aggregate measure 0.3 and 0.6 cm. The specimen is totally submitted in one cassette. B. Received in fixative is one container labeled with the patient's name and designated "Gastric body biopsy." The specimen consists of multiple irregular fragments of light smyth soft tissue that in aggregate measure 0.1 to 0.6 cm. The specimen is totally submitted in one cassette. C. Received in fixative is one container labeled with the patient's name and designated "Duodenum biopsy." The specimen consists of one irregular fragment of light smyth soft tissue that measures 1 cm. The specimen is totally submitted in one cassette. NECristal 05/03/2025 CPT:[id number]
--- NOTE | 2025-05-03 08:26 | PCM.HP.STD ---
[facility] - General General Date of Admission: 05/03/25 Date of Service: 05/03/25 Chief Complaint: Nausea, dizziness, Crohn's disease with history of H. pylori. [facility] Narrative AYAKA BRANTLEY, is a 49 F who presents making demands for repeat upper and lower endoscopies because she "is supposed to have them yearly. I'm a cancer survivor with Crohn's disease and an H.pylori infection they can do nothing about. I need scoped every year." Her last office visit was noted to be August 2023, last EGD April 2023 with 1 year recall, and last colonoscopy October 2022 with a 5 year recall. She failed to mention a recent ER visit at [facility] on 02.08.25 for RLQ abdominal pain w/associated nausea and dizziness x1day. Initial concern for appendicitis with positive Rovsing sign and RLQ rebound tenderness;CBC, CMP, lipase, and UA overall unremarkable; abdominal/pelvis CT showed no evidence of acute appendicitis or other acute abnormality, presence of diffuse inflammation throughout the colon and small bowel; she was discharged on medrol dosepack and oxycodone. [facility] GI had been consulted regarding the chronicity and resistance of her H.pylori infection in conjunction with her multiple drug allergies and intolerances; she completed this consult via telehealth and was advised to seek the assistance of infectious disease and to repeat the EGD with obtainment of gastric tissue sampling for a culture and sensitivity analysis. She reports that she "saw a CDC specialist and there's nothing that anyone can do for me. So now I have Crohn's that can't be treated because the HP infection needs to be treated first." She reports daily nausea with occasional dry heaving and poor appetite, without weight loss. She has to force herself to eat because of her chronic hypoglycemia. She reports diarrhea most of the time, but will have constipation about once a month. She reports frequent "mini-strokes and TIAs, I never know when they'll happen. I have the comprehension of an eighth grader now." [facility] Medical History Wears glasses Depression Anxiety Walker as ambulation aid Ambulates with cane High cholesterol TIA (transient ischemic attack) Former smoker Asthma COPD (chronic obstructive pulmonary disease) Emphysema, unspecified History of echocardiogram Cardiology follow-up encounter Right cervical radiculopathy Tendinosis of right rotator cuff Right shoulder tendinitis Bursitis of right shoulder Impingement of right shoulder Right elbow pain Right shoulder pain Right knee pain Bilateral carpal tunnel syndrome History of Crohn's disease Chronic fatigue syndrome Borderline personality disorder Vitamin D deficiency Seasonal allergies RLS (restless legs syndrome) Night terrors, adult Hypoglycemia Hyperlipidemia Swallowing dysfunction Adrenal insufficiency Gait disturbance Aphagia Facial droop Ischemic stroke CVA (cerebral vascular accident) Stroke IBS (irritable bowel syndrome) Ileum ulcer Wears dentures Post-menopausal Cancer Marijuana use Arthritis Back pain Injury of head and neck Difficulty swallowing Gastric reflux Smoker History of pain when walking History of edema Hypotension Stroke/cerebrovascular accident History of TIAs Diarrhea Abdominal pain Colitis Conversion disorder Left hip pain Frequent falls Right hip pain Asthma Migraines Emphysema/COPD Contusion, hip Irritable bowel syndrome Fibromyalgia COPD (chronic obstructive pulmonary disease) Tobacco use History of migraine Anxiety and depression History of pseudoseizure Paresthesia of right arm Right arm weakness Expressive aphasia Stroke-like symptoms Home Medications Medication Instructions Recorded Last Taken Type cholecalciferol (vitamin D3) 125 10,000 unit PO MOWEFR supplement 12/27/19 11/10/23 History mcg (5,000 unit) disintegrating tablet prazosin 2 mg capsule 2 mg PO QHS 09/20/20 11/10/23 History vitamin E (dl, acetate) 45 mg (100 45 mg PO DAILY 07/01/21 11/10/23 History unit) capsule fludrocortisone 0.1 mg tablet 0.1 mg PO DAILY HYPOTENSION 10/15/22 11/11/23 History albuterol sulfate 90 mcg/actuation 2 puff inhalation 4X/DAY PRN ASTHMA 01/08/23 11/10/23 History aerosol inhaler promethazine 12.5 mg tablet 12.5 mg PO Q8H PRN Nausea 01/08/23 11/10/23 History triamcinolone acetonide 55 mcg 2 spray intranasal DAILY ALLERGIES 01/08/23 11/10/23 History nasal spray aerosol turmeric root extract 500 mg 500 mg PO DAILY 01/08/23 11/10/23 History capsule vitamin B complex 1 tab PO DAILY supplement 01/08/23 11/10/23 History diphenoxylate-atropine 2.5 1 tab PO Q6H PRN Diarrhea 01/12/23 Unknown History mg-0.025 mg tablet (Lomotil) loperamide 2 mg capsule 2 mg PO Q6H PRN Diarrhea 01/12/23 Unknown History tizanidine 4 mg capsule (Zanaflex) 4 mg PO TID muscle spasticity 01/12/23 11/10/23 History ascorbic acid (vitamin C) 1,000 mg 1 g PO DAILY 11/06/23 11/10/23 History tablet (C-1000) fexofenadine 180 mg tablet 180 mg PO DAILY 11/06/23 11/10/23 History (Jess Allergy) ibuprofen 200 mg capsule 200 mg PO Q6H PRN pain 11/16/23 Unknown History ezetimibe 10 mg tablet 10 mg PO QDAY 01/09/25 Unknown History epinephrine 0.3 mg/0.3 mL 0.3 ml IM .ONCE 02/23/25 Unknown History injection, auto-injector fremanezumab-vfrm 225 mg/1.5 mL 225 mg subcut QMONTH 02/23/25 Unknown History subcutaneous syringe (Ajovy Syringe) lorazepam 0.5 mg tablet 0.5 mg PO Q8H PRN anxiety 02/23/25 Unknown History mexiletine 150 mg capsule 300 mg PO Q12H 02/23/25 Unknown History omeprazole 40 mg capsule,delayed 40 mg PO QDAY 02/23/25 Unknown History release clopidogrel 75 mg tablet (Plavix) 75 mg PO QDAY 04/11/25 04/26/25 History carbidopa 25 mg-levodopa 100 mg 1 tab PO QHS 05/01/25 Unknown History tablet (Sinemet) fluoxetine 20 mg capsule 20 mg PO DAILY 05/01/25 Unknown History Allergy/AdvReac Type Severity Reaction Status Date / Time bee pollen Allergy Severe Anaphylaxis Verified 05/03/25 07:24 coconut Allergy Intermediate Eye Verified 05/03/25 07:24 swelling, Rash metronidazole (From Flagyl) Allergy Intermediate Vomiting Verified 05/03/25 07:24 aspirin Allergy Shortness Verified 05/03/25 07:24 of breath bupropion HCl (From Allergy Other Verified 05/03/25 07:24 Wellbutrin) divalproex sodium (From Allergy Rash Verified 05/03/25 07:24 Depakote) doxycycline Allergy Rash Verified 05/03/25 07:24 Gadolinium-MRI Contrast Allergy Hives Verified 05/03/25 07:24 Medium (Gadolinium-Contrast Medium - MRI) ketorolac (From Toradol) Allergy Shortness Verified 05/03/25 07:24 of breath lamotrigine (From Lamictal) Allergy Rash Verified 05/03/25 07:24 latex Allergy Hives Verified 05/03/25 07:24 phenytoin sodium (From Allergy Hives Verified 05/03/25 07:24 Dilantin) phenytoin sodium extended Allergy Hives Verified 05/03/25 07:24 (From Dilantin) pineapple Allergy Swelling, Verified 05/03/25 07:24 Rash corn AdvReac Severe Laryngospas Verified 05/03/25 07:24 ms egg AdvReac Mild Other Verified 05/03/25 07:24 erythromycin base AdvReac Nausea/Vom/ Verified 05/03/25 07:24 Diarrhea quetiapine fumarate (From AdvReac Other Verified 05/03/25 07:24 Seroquel) Sulfa (Sulfonamide AdvReac Vomiting Verified 05/03/25 07:24 Antibiotics) varenicline tartrate (From AdvReac Vomiting Verified 05/03/25 07:24 Chantix) Family History Mother Diabetes Heart disease Hypertension HLD (hyperlipidemia) Depression Myocardial infarction Multiple sclerosis Father , 56 Diabetes Heart disease Hypertension HLD (hyperlipidemia) Asthma Myocardial infarction Sister Cancer Diabetes Grandfather Diabetes Surgical History History of esophagogastroduodenoscopy (EGD) Hx of colonoscopy Hx of tooth extraction History of dilation and curettage S/P partial hysterectomy H/O knee surgery H/O section History of cholecystectomy Social History adopted: Yes household members: none housing: house current occupational status: disabled Smoking Status: Former smoker alcohol intake: current alcohol intake frequency: a few times a month Alcohol type: wine substance use type: marijuana caffeine: Yes Type: coffee Number of servings: 1 what type of physical activity do you participate in: other details: home exercises, fishing do you feel safe at home: Yes ROS Constitutional Constitutional: Denies fatigue, fever(s), poor appetite, weight gain or weight loss Gastrointestinal Gastrointestinal: Denies belching, bloating, change in bowel habits, change in stool character, chewing difficulty, coffee ground emesis, constipation, cramping, diarrhea, dyspepsia, dysphagia, early satiety, excessive flatus, fecal incontinence, heartburn, hematemesis, hematochezia, hemorrhoids, loose stools, melena, nausea, odynophagia, rectal bleeding, tenesmus, vomiting or weight changes Vital Signs Vital Signs Vital Signs: 05/03/25 07:35 05/03/25 07:35 05/03/25 08:15 Temperature 98.2 F 98.2 F Temperature Source Temporal Pulse Rate 77 77 Respiratory Rate 18 18 Respiratory Pattern Normal Blood Pressure 122/86 H 122/86 H Blood Pressure Mean 98 Blood Pressure Source Monitor Blood Pressure Position Sitting Blood Pressure Location Left Arm Pulse Ox 99 99 Oxygen Delivery Method Room Air Room Air Weight Weight: 163 lb 2.273 oz Body Mass Index (BMI) 28.0 Physical Exam Const alert, oriented x3, no apparent distress and healthy appearing General Appearance: cooperative GI normal to inspection, nondistended, normoactive bowel sounds, soft to palpation, non-tender and non-distended Percussion: normal to percussion Rectal Exam: deferred Assessment & Plan Assessment/Plan (1) Eosinophilic esophagitis: (2) Gastrointestinal food sensitivity: (3) Crohn's disease: QUALIFIERS: Gastrointestinal tract location: unspecified location Digestive disease complication type: unspecified complication Qualified Code(s): K50.919 - Crohn's disease, unspecified, with unspecified complications (4) H. pylori infection: PLAN: ROS Const Constitutional: Positive for fatigue, frequent falls, headache(s), weakness, sleep problems and change in appetite; No fever(s) or weight change Eyes Eyes: No blurry vision or change in vision ENT ENT: Positive for headache(s) and difficulty swallowing; No abnormal hearing Resp Respiratory: No cough Cardio Cardiology: Positive for leg pain with exertion; No chest pain at rest or chest pain with exertion Gastro GI: Positive for abdominal pain, bloating, constipation, diarrhea, heartburn, difficulty swallowing, excessive flatus and nausea/dyspepsia; No belching, change in bowel habits, change in stool character, coffee ground emesis, cramping, feeling full early, incontinent of stools, Vomiting blood/hematemesis, Blood in stool, loose stools, Black,tarry stools, pain with swallowing, vomiting or other Genitourinary-Female: No difficulty urinating Musc Musculoskeletal: Positive for abnormal gait, joint pain, back pain, joint swelling, muscle weakness, numbness, stiffness, tingling, Arthritis, sciatica, restless legs and leg pain with exertion Skin Skin: Positive for dry skin, itchy eyes and rash; No yellowing of the eye Neuro Neurology: Positive for abnormal gait, dizziness, weakness, frequent falls, headache(s), numbness, tingling and restless legs; No abnormal hearing Psych Psychiatric: Positive for anxiety, Positive for change in appetite, No depression, Positive for difficulty concentrating, Positive for panic attacks, Positive for paranoia, Positive for inattentiveness and Positive for obsessions/compulsions Endo Endocrine: Positive for fatigue; No cold intolerance, heat intolerance or weight change Aller/Imm Allergy/Immunologic: Positive for itchy eyes J Carlos/Lymp Hematologic/Lymphatic: No easy bleeding or easy bruising Exam Const General: cooperative, healthy appearing and comfortable Nutritional Appearance: average body habitus Orientation: alert and oriented x3 HENMT Head: normal to inspec Assessment and Plan Assessment and Plan (1) Crohn's disease: Status: Chronic Qualifiers: Digestive disease complication type: unspecified complication Gastrointestinal tract location: unspecified location Qualified Code(s): K50.919 - Crohn's disease, unspecified, with unspecified complications (2) H. pylori infection: Status: Chronic Orders: Orders Calprotectin, Stool Today A04.8 - Other specified bacterial intestinal infections, K50.919 - Crohn's disease, unspecified, with unspecified complications Plan AYAKA BRANTLEY, is a 49 F who presents to the office today for FU. She presents making demands for repeat upper and lower endoscopies because she "is supposed to have them yearly. I'm a cancer survivor with Crohn's disease and an H.pylori infection they can do nothing about. I need scoped every year." Her last office visit was noted to be August 2023, last EGD April 2023 with 1 year recall, and last colonoscopy October 2022 with a 5 year recall. stool for calprotectin schedule EGD consider colonoscopy and capsule endoscopy, waiting on calprotectin results since recent abd CT showed diffuse inflammation of colon and small bowel office FU post testing for results
--- NOTE | 2025-05-03 08:54 | OP.CCLET_ITS ---
05/03/2025 Tej Whitehead Re : Upper GI endoscopy procedure for Raquel Robledo Dear Charley This procedure was performed on Saturday, May 03, 2025. My impressions and recommendations are as follows: Impressions : - Normal esophagus. - Bile gastritis. Biopsied. - Erythematous duodenopathy. Biopsied. Recommendations : - Discharge patient to home. - Resume previous diet. - Continue present medications. - Await pathology results. - Repeat upper endoscopy in 1 year for surveillance. My findings are described in the full procedure note, which is enclosed. If I can be of further assistance, please feel free to contact me at . Sincerely, Anoop Andrade, 05/03/2025 8:53:54 AM This report has been signed electronically.
--- NOTE | 2025-05-03 08:54 | OP.EGD_ITS ---
Patient Name: Raquel Robledo Procedure Date: 05/03/2025 8:29 AM Date of : 1975 Age: 49 Procedure: Upper GI endoscopy Indications: Epigastric abdominal pain, Functional Dyspepsia, Esophageal reflux, Follow-up of Helicobacter pylori Providers: Anoop Andrade DO Referring MD: Tej Whitehead Medicines: Monitored Anesthesia Care Patient Profile: This is a 49 year old female. Refer to note in patient chart for documentation of history and physical. Patient has symptoms of chronic abdominal cramping, chronic abdominal distention, chronic epigastric abdominal pain, chronic dyspepsia and chronic nausea. Complications: No immediate complications. Procedure: Pre-Anesthesia Assessment: - Prior to the procedure, a History and Physical was performed, and patient medications and allergies were reviewed. The patient is competent. The risks and benefits of the procedure and the sedation options and risks were discussed with the patient. All questions were answered and informed consent was obtained. Patient identification and proposed procedure were verified by the physician in the pre-procedure area. Mental Status Examination: alert and oriented. Airway Examination: normal oropharyngeal airway and neck mobility. Respiratory Examination: clear to auscultation. CV Examination: normal. Prophylactic Antibiotics: The patient does not require prophylactic antibiotics. Prior Anticoagulants: The patient has taken no anticoagulant or antiplatelet agents. ASA Grade Assessment: II - A patient with mild systemic disease. After reviewing the risks and benefits, the patient was deemed in satisfactory condition to undergo the procedure. The anesthesia plan was to use monitored anesthesia care (MAC). Immediately prior to administration of medications, the patient was re-assessed for adequacy to receive sedatives. The heart rate, respiratory rate, oxygen saturations, blood pressure, adequacy of pulmonary ventilation, and response to care were monitored throughout the procedure. The physical status of the patient was re-assessed after the procedure. After obtaining informed consent, the endoscope was passed under direct vision. Throughout the procedure, the patient's blood pressure, pulse, and oxygen saturations were monitored continuously. The Endoscope was introduced through the mouth, and advanced to the fourth part of the duodenum. Small bowel enteroscopy was deemed necessary. The upper GI endoscopy was accomplished without difficulty. The patient tolerated the procedure well. Scope In: 8:42:56 AM Scope Out: 8:46:41 AM Total Procedure Duration Time 0 hours 3 minutes 45 seconds Findings: The examined esophagus was normal. Patchy moderate inflammation characterized by erosions and erythema was found in the gastric body. Biopsies were taken with a cold forceps for histology. Verification of patient identification for the specimen was done. Biopsies were taken with a cold forceps for Helicobacter pylori testing. Verification of patient identification for the specimen was done. Estimated blood loss was minimal. Diffuse mildly erythematous mucosa without active bleeding and with no stigmata of bleeding was found in the entire duodenum. Biopsies were taken with a cold forceps for histology. Verification of patient identification for the specimen was done. Estimated blood loss was minimal. Impression: - Normal esophagus. - Bile gastritis. Biopsied. - Erythematous duodenopathy. Biopsied. Recommendation: - Discharge patient to home. - Resume previous diet. - Continue present medications. - Await pathology results. - Repeat upper endoscopy in 1 year for surveillance. Procedure Code(s): --- Professional --- 11644, Small intestinal endoscopy, enteroscopy beyond second portion of duodenum, not including ileum; with biopsy, single or multiple CPT copyright 2021 [employer]. All rights reserved. The codes documented in this report are preliminary and upon certified coder review may be revised to meet current compliance requirements. Anoop Andrade DO 05/03/2025 8:53:54 AM This report has been signed electronically. Number of Addenda: 0 Note Initiated On: 05/03/2025 8:29 AM
--- NOTE | 2025-05-03 08:58 | PCM.POST.ANE ---
Anesthesia: Postop Eval I Current Vital Signs Temperature: 97.6 F Pulse Rate: 72 Blood Pressure: 97/68 Respiratory Rate: 16 Pulse Ox: 95 Oxygen Delivery Method: Room Air Assessment Airway patent: Yes Spontaneous unlabored respirations: Yes Mental status: Asleep nausea: No Vomiting: No Anesthesia Complication: No Fluid Hydration Crystalloid volume administer (ml): 300 Total IV fluid infused: 300 Progress Note Anesthesia document: Postop Eval 1 completed: Yes
--- NOTE | 2025-05-03 09:04 | PCM.POSTANE2 ---
Anesthesia Postop Eval I Sum Postop Eval Completion status Anesthesia document: Postop Eval 1 completed: Yes Anesthesia Postop Eval I Summary Anesthesia Postop Eval I Summary: Anesthesia Postop Eval I: Assessment Summary Airway patent Yes 05/03/25 08:58 [email or web address] Spontaneous unlabored Yes 05/03/25 08:58 [email or web address] respirations Mental status Asleep 05/03/25 08:58 [email or web address] nausea No 05/03/25 08:58 [email or web address] Vomiting No 05/03/25 08:58 [email or web address] Anesthesia Postop Eval I: Fluid Summary Crystalloid volume administer 300 05/03/25 08:58 [email or web address] (ml) Colloids volume administered ( ml) Blood Product volume administered (ml) Total IV fluid infused 300 05/03/25 08:58 [email or web address] Anesthesia Postop Eval I: Summary Notes Anesthesia Complication No 05/03/25 08:58 [email or web address] Anesthesia Complication Comment: Post-operative progress note Anesthesia: Postop Eval II Evaluation Mental status: Awake and Calm Pain Level: 0 nausea: No Vomiting: No
== END 2025-05-03 09:36 | disposition home or self-care (01) ==
LOC: EN 07:03 → AC 07:07
PROVIDERS: PCP Nurse Practitioner Family; Referring Provider Nurse Practitioner Family; Visit Provider Internal Medicine Gastroenterology
PROC: 0DJ08ZZ Inspection of Upper Intestinal Tract, Via Natural or Artificial Opening Endoscopic (ICD-10-PCS; CPT 43235; principal; 2025-05-03 08:10)
DX: K31.89 Other diseases of stomach and duodenum (principal); K50.90 Crohn's disease, unspecified, without complications; J44.9 Chronic obstructive pulmonary disease, unspecified; E78.00 Pure hypercholesterolemia, unspecified; K20.0 Eosinophilic esophagitis; K29.50 Unspecified chronic gastritis without bleeding; Z79.01 Long term (current) use of anticoagulants; Z79.51 Long term (current) use of inhaled steroids; Z86.73 Personal history of transient ischemic attack (TIA), and cerebral infarction without residual deficits; Z87.891 Personal history of nicotine dependence; Z79.899 Other long term (current) drug therapy
CPT/HCPCS: 44361; 88305; 88342; J2405

== ENCOUNTER 2025-06-15 12:07 | Emergency (ER) | payer MEDICARE, MEDICAID, SELFPAY ==
[2025-06-15 12:07] VITALS: BP 123/77; PULSE 86; RESP 14; TEMP 37; O2SAT 98; BMI 29.0
[2025-06-15 12:47] LABS: Hematocrit 47.4 % (37-47); Hemoglobin 15.9 g/dL (12.0-15.0); Immature Granulocytes Count 0.030 X10^3/uL (0.0-0.0); Mean Corp Hgb Conc 33.5 g/dL (32-36); Mean Corpuscular Volume 89.8 fL (81-99); Mean Platelet Vol. 8.3 fl (6.2-12.0); NRBC Flagged by Analyzer 0 % (0-5); Platelet Count 426 K/mm3 (150-450); RBC Distribution Width CV 14.6 % (11.6-14.6); RBC Distribution Width SD 48.4 fl (35.1-43.9); Red Blood Count 5.28 M/mm3 (4.2-5.4); White Blood Count 8.5 K/mm3 (4.4-11.0)
[2025-06-15 13:04] LABS: Internal QC Validated? YES +Cl - CLEAR BKGD; Pregnancy, Serum, hCG Quali. NEGATIVE Negative; Record Kit Lot#, Serum Preg. 0000962302
[2025-06-15 13:43] LABS: AST(SGOT) 15 U/L (<=31); Alanine Aminotransfer ALT/SGPT 14 U/L (<=34); Albumin, Serum 4.3 g/dL (3.5-5.0); Alkaline Phosphatase 105 U/L (35-104); Anion Gap 11 (5-15); BUN 9 mg/dL (4-19); BUN/Creat Ratio 11.6 RATIO (10-20); Calcium,Total 9.6 mg/dL (7.6-11.0); Carbon Dioxide 24.7 mmol/L (21.0-32.0); Chloride 105 mmol/L (98-108); Estimated Creatinine Clearance 94.45 ml/min (50-250); Globulin 3.1 g/dL (2.2-4.2); Glucose 100 mg/dL (70-99); Lipase 29 U/L (13-75); Potassium 3.8 mmol/L (3.3-5.1)
--- NOTE | 2025-06-15 13:43 | CT_ITS ---
PROCEDURE: ABDOMEN/PELVIS WITHOUT CONT 06/15/2025 REASON FOR EXAM: LEFT CVA TENDERNESS, RULE OUT STONE Nausea. TECHNIQUE: ABDOMEN/PELVIS WITHOUT CONT Noncontrast technique limits evaluation of the abdominal and pelvic viscera. Coronal and Sagittal reconstruction series were provided. One or more dose reduction techniques were used (e.g., Automated exposure control, adjustment of the mA and/or kV according to patient size, use of iterative reconstruction technique). RADIATION DOSE SUMMARY: CTDlvol: 8.58 mGy DLP: 414.26 mGycm COMPARISON: Prior study dated May 29, 2023. FINDINGS: Lung bases: The lung bases are clear. Minimal anterior pericardial thickening. No coronary artery calcification is seen. Liver: Normal size. No obvious mass. Gallbladder: Surgically absent. Spleen: Normal size. Pancreas: Normal size. No surrounding inflammation. Adrenals: Unremarkable Kidneys: No urolithiasis. No hydronephrosis stable malrotation of the right kidney. Bladder: Unremarkable Reproductive Organs: Prior hysterectomy. Adnexal regions are unremarkable. Bowel: Unremarkable Appendix: Unremarkable Lymph nodes: Unremarkable. Vasculature: The abdominal aorta and IVC contours are normal. Noncontrast technique limits evaluation. Peritoneum / Retroperitoneum: Unremarkable Bones: Unremarkable CT/Abdomen/Pelvis without Cont IMPRESSION: Status post cholecystectomy and hysterectomy. No acute abnormality is seen. Reading Location: [id number]
--- NOTE | 2025-06-15 13:44 | ED.VIS.GI ---
HPI HPI - GI History of Present Illness Chief Complaint: Abd Pain Narrative Narrative: Patient is a 50-year-old female presenting to the emergency department for left upper quadrant pain that radiates to her left CVA for the past week. Patient has a past medical history of Crohn's, eosinophilic esophagitis, CVA, fibromyalgia. Patient states has been constant since it started. She reports nausea with no vomiting. States she was seen by her primary care at [place] who ordered a CT scan that was reportedly negative. States that this was about 3 to 4 days ago. She denies fever or chills. Denies chest pain or shortness of breath. Reports her last bowel movement this morning. No diarrhea. No dysuria or hematuria. Shes been taking Phenergan at home for her nausea. [facility] Medical History Wears glasses Depression Anxiety Walker as ambulation aid Ambulates with cane High cholesterol TIA (transient ischemic attack) Former smoker Asthma COPD (chronic obstructive pulmonary disease) Emphysema, unspecified History of echocardiogram Cardiology follow-up encounter Right cervical radiculopathy Tendinosis of right rotator cuff Right shoulder tendinitis Bursitis of right shoulder Impingement of right shoulder Right elbow pain Right shoulder pain Right knee pain Bilateral carpal tunnel syndrome History of Crohn's disease Chronic fatigue syndrome Borderline personality disorder Vitamin D deficiency Seasonal allergies RLS (restless legs syndrome) Night terrors, adult Hypoglycemia Hyperlipidemia Swallowing dysfunction Adrenal insufficiency Gait disturbance Aphagia Facial droop Ischemic stroke CVA (cerebral vascular accident) Stroke IBS (irritable bowel syndrome) Ileum ulcer Wears dentures Post-menopausal Cancer Marijuana use Arthritis Back pain Injury of head and neck Difficulty swallowing Gastric reflux Smoker History of pain when walking History of edema Hypotension Stroke/cerebrovascular accident History of TIAs Diarrhea Abdominal pain Colitis Conversion disorder Left hip pain Frequent falls Right hip pain Asthma Migraines Emphysema/COPD Contusion, hip Irritable bowel syndrome Fibromyalgia COPD (chronic obstructive pulmonary disease) Tobacco use History of migraine Anxiety and depression History of pseudoseizure Paresthesia of right arm Right arm weakness Expressive aphasia Stroke-like symptoms Home Medications ?Medication ?Instructions ?Recorded ?Last Taken ?Type cholecalciferol (vitamin D3) 125 10,000 unit PO MOWEFR supplement 12/27/19 11/10/23 History mcg (5,000 unit) disintegrating tablet prazosin 2 mg capsule 2 mg PO QHS 09/20/20 11/10/23 History vitamin E (dl, acetate) 45 mg (100 45 mg PO DAILY 07/01/21 11/10/23 History unit) capsule fludrocortisone 0.1 mg tablet 0.1 mg PO DAILY HYPOTENSION 10/15/22 11/11/23 History albuterol sulfate 90 mcg/actuation 2 puff inhalation 4X/DAY PRN ASTHMA 01/08/23 11/10/23 History aerosol inhaler promethazine 12.5 mg tablet 12.5 mg PO Q8H PRN Nausea 01/08/23 11/10/23 History triamcinolone acetonide 55 mcg 2 spray intranasal DAILY ALLERGIES 01/08/23 11/10/23 History nasal spray aerosol turmeric root extract 500 mg 500 mg PO DAILY 01/08/23 11/10/23 History capsule vitamin B complex 1 tab PO DAILY supplement 01/08/23 11/10/23 History diphenoxylate-atropine 2.5 1 tab PO Q6H PRN Diarrhea 01/12/23 Unknown History mg-0.025 mg tablet (Lomotil) loperamide 2 mg capsule 2 mg PO Q6H PRN Diarrhea 01/12/23 Unknown History tizanidine 4 mg capsule (Zanaflex) 4 mg PO TID muscle spasticity 01/12/23 11/10/23 History ascorbic acid (vitamin C) 1,000 mg 1 g PO DAILY 11/06/23 11/10/23 History tablet (C-1000) fexofenadine 180 mg tablet 180 mg PO DAILY 11/06/23 11/10/23 History (Jess Allergy) ibuprofen 200 mg capsule 200 mg PO Q6H PRN pain 11/16/23 Unknown History ezetimibe 10 mg tablet 10 mg PO QDAY 01/09/25 Unknown History epinephrine 0.3 mg/0.3 mL 0.3 ml IM .ONCE 02/23/25 Unknown History injection, auto-injector fremanezumab-vfrm 225 mg/1.5 mL 225 mg subcut QMONTH 02/23/25 Unknown History subcutaneous syringe (Ajovy Syringe) lorazepam 0.5 mg tablet 0.5 mg PO Q8H PRN anxiety 02/23/25 Unknown History mexiletine 150 mg capsule 300 mg PO Q12H 02/23/25 Unknown History omeprazole 40 mg capsule,delayed 40 mg PO QDAY 02/23/25 Unknown History release clopidogrel 75 mg tablet (Plavix) 75 mg PO QDAY 04/11/25 04/26/25 History carbidopa 25 mg-levodopa 100 mg 1 tab PO QHS 05/01/25 Unknown History tablet (Sinemet) fluoxetine 20 mg capsule 20 mg PO DAILY 05/01/25 Unknown History Allergy/AdvReac Type Severity Reaction Status Date / Time bee pollen Allergy Severe Anaphylaxis Verified 06/15/25 12:09 coconut Allergy Intermediate Eye Verified 06/15/25 12:09 swelling, Rash metronidazole (From Flagyl) Allergy Intermediate Vomiting Verified 06/15/25 12:09 aspirin Allergy Shortness Verified 06/15/25 12:09 of breath bupropion HCl (From Allergy Other Verified 06/15/25 12:09 Wellbutrin) divalproex sodium (From Allergy Rash Verified 06/15/25 12:09 Depakote) doxycycline Allergy Rash Verified 06/15/25 12:09 Gadolinium-MRI Contrast Allergy Hives Verified 06/15/25 12:09 Medium (Gadolinium-Contrast Medium - MRI) ketorolac (From Toradol) Allergy Shortness Verified 06/15/25 12:09 of breath lamotrigine (From Lamictal) Allergy Rash Verified 06/15/25 12:09 latex Allergy Hives Verified 06/15/25 12:09 phenytoin sodium (From Allergy Hives Verified 06/15/25 12:09 Dilantin) phenytoin sodium extended Allergy Hives Verified 06/15/25 12:09 (From Dilantin) pineapple Allergy Swelling, Verified 06/15/25 12:09 Rash Yeast Allergy Rash Verified 06/15/25 12:09 corn AdvReac Severe Laryngospas Verified 06/15/25 12:09 ms egg AdvReac Mild Other Verified 06/15/25 12:09 erythromycin base AdvReac Nausea/Vom/ Verified 06/15/25 12:09 Diarrhea quetiapine fumarate (From AdvReac Other Verified 06/15/25 12:09 Seroquel) Sulfa (Sulfonamide AdvReac Vomiting Verified 06/15/25 12:09 Antibiotics) varenicline tartrate (From AdvReac Vomiting Verified 06/15/25 12:09 Chantix) Family History Mother Diabetes Heart disease Hypertension HLD (hyperlipidemia) Depression Myocardial infarction Multiple sclerosis Father , 56 Diabetes Heart disease Hypertension HLD (hyperlipidemia) Asthma Myocardial infarction Sister Cancer Diabetes Grandfather Diabetes Surgical History History of esophagogastroduodenoscopy (EGD) Hx of colonoscopy Hx of tooth extraction History of dilation and curettage S/P partial hysterectomy H/O knee surgery H/O section History of cholecystectomy Social History adopted: Yes household members: none housing: house current occupational status: disabled Smoking Status: Former smoker alcohol intake: current alcohol intake frequency: a few times a month Alcohol type: wine substance use type: marijuana caffeine: Yes Type: coffee Number of servings: 1 what type of physical activity do you participate in: other details: home exercises, fishing do you feel safe at home: Yes ROS ROS ED ROS Narrative see HPI EXAM Physical Exam Narrative Exam Narrative: Vital signs: Reviewed General: Alert and oriented. No acute distress HEENT: Head is normocephalic and atraumatic, sinuses nontender, pupils equal round and reactive. Nares are patent. Oropharynx and throat exams normal. Neck: Supple without lymphadenopathy nontender Cardiovascular: Regular rate and rhythm, no murmurs. No rubs or gallops. Normal S1 and S2 Respiratory: Clear to auscultation bilaterally. No wheezes, rales, rhonchi Abdominal: Soft and tender to palpation in the left upper quadrant. Left CVA tenderness. No right CVA tenderness. Normal bowel sounds. No guarding or rebound. Nonsurgical abdomen Extremities: No tenderness. No bruising. Normal range of motion. Normal sensation. Skin: No rash or redness along the abdominal wall or flanks. Neurological: Cranial nerves II through XII are grossly intact. Normal strength and sensation. Normal cerebellar function The rest of the physical exam is unremarkable Const Vital Signs: 06/15/25 12:07 06/15/25 14:07 06/15/25 15:54 Temperature 98.6 F 98.3 F Temperature Source Oral Pulse Rate 86 71 68 Respiratory Rate 14 15 16 Blood Pressure 123/77 H 121/70 H 124/77 H Blood Pressure Mean 92 87 92 Pulse Ox 98 97 98 Oxygen Delivery Method Room Air MDM MDM MDM Narrative Medical decision making narrative: Patient is a 50-year-old female presenting to the emergency department for 1 week of left upper quadrant pain. Seen and examined. Vitals are stable. No acute distress Differential includes but is not limited to: Colitis, nephrolithiasis, pyelonephritis, UTI, considered shingles CBC with no leukocytosis and hemoglobin of 15.9. CMP with slightly elevated alk phos of 105 otherwise no significant abnormalities. Urine negative. Urinalysis with no evidence of UTI. Lipase within normal limits. Given the patient's continued pain, CT was ordered to evaluate for stone. CT shows no acute abnormality. Patient feeling improved after morphine and Zofran. Given negative labs and imaging, patient can be managed outpatient. She states that she has been taking Tylenol and Motrin at home and has a few [place] left over from her primary care doctor who she saw for this similar complaint. She also has p.o. Phenergan at home. Does not need any additional medications. I recommended that she return to the ED with any worsening abdominal pain, nausea, vomiting, fevers. Recommended that she follow-up with primary care doctor soon as possible. Patient discharged from the Emergency Department. I do not feel that the patient's evaluation reveals any acute reason for admission at this time. I instructed them to either follow-up with their primary care physician or promptly return to the Emergency Department for reevaluation should symptoms worsen or new symptoms develop. I explained what symptoms would indicate the need to return to the emergency department. Shared decision making was used. The patient voiced understanding of the treatment plan and is agreeable with it. Clinical impression Left upper quadrant pain Nausea History & Record Review Discussion w/independent historian: Patient Lab Data Attestation: I reviewed the patient's lab results. Labs: Laboratory Results - last 24 hr 06/15/25 06/15/25 12:35 15:49 WBC 8.5 RBC 5.28 Hgb 15.9 H Hct 47.4 H MCV 89.8 MCH 30.1 MCHC 33.5 RDW Std Deviation 48.4 H RDW Coeff of [place]uly 14.6 Plt Count 426 MPV 8.3 Immature Gran % (Auto) 0.400 Neut % (Auto) 46.1 L Lymph % (Auto) 41.8 H [place] % (Auto) 6.9 Eos % (Auto) 4.2 Baso % (Auto) 0.6 Absolute Neuts (auto) 3.9 Absolute Lymphs (auto) 3.55 Nucleated RBC % 0 Sodium 140 Potassium 3.8 Chloride 105 Carbon Dioxide 24.7 Anion Gap 11 BUN 9 Creatinine 0.73 Estim Creat Clear Calc 94.45 Est GFR (MDRD) Non-Af 101 BUN/Creatinine Ratio 11.6 Glucose 100 H Calcium 9.6 Total Bilirubin 0.21 AST 15 ALT 14 Alkaline Phosphatase 105 H Total Protein 7.4 Albumin 4.3 Globulin 3.1 Albumin/Globulin Ratio 1.4 Lipase 29 Serum , Qual NEGATIVE Urine Color Yellow Urine Clarity Sl. Cloudy Urine pH 6.0 Ur Specific [place] 1.015 Urine Protein 15 H Urine Glucose (UA) Normal Urine Ketones Negative Urine Occult Blood 10 H Urine Nitrite Negative Urine Bilirubin Negative Urine Urobilinogen Normal Ur Leukocyte Esterase Negative Urine RBC 0-5 SEEN Urine WBC 0-5 SEEN Ur Squamous Epith Cells 10-25 SEEN Urine Bacteria 0 SEEN Urine Mucus 0 SEEN Radiography Diagnostic Testing: Clinical Impression(s) from Imaging Studies Abdomen/Pelvis CT 06/15/25 13:43 IMPRESSION: Status post cholecystectomy and hysterectomy. No acute abnormality is seen. Reading Location: [id number] Discharge Plan Triage Chief Complaint: Abd Pain ED Provider: Noy Swift Dx/Rx/DC Orders Clinical Impression: Abdominal pain Instructions: ED Abdominal Pain Unkn Cause Fem Prescriptions: No Action vitamin E (dl, acetate) 45 mg (100 unit) capsule 45 mg PO DAILY promethazine 12.5 mg tablet 12.5 mg PO Q8H PRN (Reason: Nausea) albuterol sulfate 90 mcg/actuation HFA aerosol inhaler 2 puff inhalation 4X/DAY PRN (Reason: ASTHMA) triamcinolone acetonide 55 mcg aerosol,spray 2 spray intranasal DAILY Rx Instructions: administer into each nostril turmeric root extract 500 mg capsule 500 mg PO DAILY loperamide 2 mg capsule 2 mg PO Q6H PRN (Reason: Diarrhea) diphenoxylate-atropine [Lomotil] 2.5-0.025 mg tablet 1 tab PO Q6H PRN (Reason: Diarrhea) ibuprofen 200 mg capsule 200 mg PO Q6H PRN (Reason: pain) ezetimibe 10 mg tablet 10 mg PO QDAY omeprazole 40 mg capsule,delayed release(DR/EC) 40 mg PO QDAY lorazepam 0.5 mg tablet 0.5 mg PO Q8H PRN (Reason: anxiety) mexiletine 150 mg capsule 300 mg PO Q12H epinephrine 0.3 mg/0.3 mL auto-injector 0.3 ml IM .ONCE Ajovy Syringe 225 mg/1.5 mL syringe 225 mg subcut QMONTH Patient Comments: INSURANCE CONFLICT CURRENTLY clopidogrel [Plavix] 75 mg tablet 75 mg PO QDAY cholecalciferol (vitamin D3) 5,000 UNIT tablet,disintegrating 10,000 unit PO MOWEFR vitamin B complex Tablet 1 tab PO DAILY prazosin 2 MG capsule 2 mg PO QHS tizanidine [Zanaflex] 4 mg capsule 4 mg PO TID fludrocortisone 0.1 mg tablet 0.1 mg PO DAILY Patient Comments: TAKE 1 TABLET BY MOUTH EVERY DAY fexofenadine [Jess Allergy] 180 mg tablet 180 mg PO DAILY ascorbic acid (vitamin C) [C-1000] 1,000 mg tablet 1 g PO DAILY carbidopa-levodopa [Sinemet] 25-100 mg tablet 1 tab PO QHS Rx Instructions: administer 30-60 minutes before bedtime fluoxetine 20 mg capsule 20 mg PO DAILY Primary Care Provider: Tej Whitehead NP Referrals: Tej Whitehead NP, [facility] [Primary Care Provider] - 2 Days Activity Restrictions/Additional Instructions: Your evaluation in the Emergency Department did not reveal any acute reason for admission. However, I want to emphasize that you may be early in the course of a disease process or illness even if it is not present. For this reason you should follow-up within 24 hours for reevaluation with either your primary care physician or if necessary back here in the Emergency Department. You should return to the Emergency Department immediately if your symptoms worsen or new symptoms develop. Print Language: Bulgarian Disposition Disposition: Home, Self Care Discharge Date/Time: 06/15/25 15:54
[2025-06-15 14:07] VITALS: BP 121/70; PULSE 71; RESP 15; O2SAT 97
[2025-06-15 15:54] VITALS: BP 124/77; PULSE 68; RESP 16; TEMP 36.8; O2SAT 98
[2025-06-15 15:54] LABS: Mucous, Urine 0 SEEN /hpf (<or=2+)
[2025-06-15 16:26] LABS: Color, Urine Yellow (Yellow); Glucose, Dipstick Normal (Normal); Ketone-Dipstick Negative (Negative); Leukocyte Esterase-Dipstick Negative /ul (Negative); Nitrite-Dipstick Negative (Negative); Occult Blood-Urine 10 /ul (Negative); Protein-Dipstick 15 mg/dl (Negative); Specific Gravity, Urine 1.015 (1.002-1.030); Urine Bilirubin Dipstick Negative (Negative)
[2025-06-15 16:41] LABS: Squamous Epithelial Cells - UA 10-25 SEEN /hpf (5-10)
[2025-06-15 16:42] LABS: Red Blood Cells-Urine 0-5 SEEN /hpf (0-5)
== END 2025-06-15 15:54 | disposition home or self-care (01) ==
PROVIDERS: Emergency Provider Student in an Organized Health Care Education/Training Program; PCP Nurse Practitioner Family; Visit Provider Student in an Organized Health Care Education/Training Program
DX: R10.12 Left upper quadrant pain (principal); J44.9 Chronic obstructive pulmonary disease, unspecified; R11.0 Nausea; Z87.891 Personal history of nicotine dependence; Z86.73 Personal history of transient ischemic attack (TIA), and cerebral infarction without residual deficits
CPT/HCPCS: 74176; 80053; 81001; 83690; 84703; 85025; 96374; 96375; 99283; A4216; J2405

== ENCOUNTER 2025-07-13 08:19 | Outpatient (CLI) | payer MEDICARE, MEDICAID, SELFPAY ==
[2025-07-13 08:30] VITALS: BP 92/63; PULSE 83; RESP 16; O2SAT 97; BMI 28.6
[2025-07-13 09:53] LABS: CORTISOL AM 11.60 ug/dL (6.02-18.40)
[2025-07-13 10:33] LABS: CORTISOL AM 24.30 ug/dL (6.02-18.40)
[2025-07-13 10:52] LABS: CORTISOL AM 27.20 ug/dL (6.02-18.40)
== END 2025-07-13 23:59 | disposition home or self-care (01) ==
LOC: MEDOUTP 08:20
PROVIDERS: PCP Nurse Practitioner Family; Referring Provider Nurse Practitioner Family; Visit Provider Nurse Practitioner Family
DX: E27.49 Other adrenocortical insufficiency (principal)
CPT/HCPCS: 36415; 82533; 96372; J0834